=== PATIENT | male | born 1945 | race Hispanic/Latino ===

== ENCOUNTER 2020-05-30 21:25 | Emergency (ER) | payer OTHER ==
--- OUTSIDE RECORDS SUMMARY | 2020-05-30 21:27 | XMS REPORT | Continuity of Care Document ---
:1945 Author Organization [facility] t Address [address] [place] [address] Care Team Providers Name Role Phone Cra Pettit DO Attending Clinician Jerman GRIER, Vanessa Attending Clinician Unavailable Edi Christie MD Attending Clinician Only, Test Attending Clinician Unavailable Blayne Aguilera PA-C Attending Clinician Problems This patient has no known problems. Allergies, Adverse Reactions, Alerts This patient has no known allergies or adverse reactions. Medications This patient has no known medications. Procedures This patient has no known procedures. Encounters Start End Encounter Admission Attending Care Care Encounter Source Date/Time Date/Time Type Type Clinicians Facility Department ID 2020-05-30 2020-05-30 Patient DESHAWN Pettit [id number] 00:00:00 00:00:00 Outreach Car DAPHNIE [id number] Jaylan [facility] [id number] NIKOLAY [id number] 2020-05-23 2020-05-23 Letter PERLITA Stoll [id number] 00:00:00 00:00:00 (Out) Michelle LEON [id number] [facility] [id number] 2020-05-22 2020-05-22 Telephone DESHAWN Christie [id number] 00:00:00 00:00:00 Loren Daley PRIMARY [id number] [facility] [id number] [facility] [id number] 2020-05-21 2020-05-21 Laboratory Only, Pcp [facility] [id number] 07:42:35 07:57:35 Only Test PRIMARY [id number] [facility] [id number] SANIBEL [id number] 2020-05-14 2020-05-14 Office JEROME Aguilera [id number] 13:15:45 14:06:06 Visit Jojo Flakita [id number] [facility] [id number] [facility] [id number] BLDG. 144 Results This patient has no known results.
--- OUTSIDE RECORDS SUMMARY | 2020-05-30 21:28 | XMS REPORT | Summary of Care ---
:1945 Author Organization [facility] - Health Address [address] [place] [address] Care Team Providers Name Role Phone Loren Christie MD Primary Care Provider Estephania Dsouza DO Unavailable LEONARDO James Unavailable Pcp-Lab Unavailable Unavailable DEISY Winn Unavailable Encounter Details Date Type Department Care Team Description 03/19/2020 Patient Secure [facility] Geriatrics- Loren Lee MD [address] [id number] [place] [address] [address] [place] [address] [phone] Allergies No Known Allergiesdocumented as of this encounter (statuses as of 03/19/2020) Medications Medication Sig Dispensed Refills Start Date End Date Status amLODIPine 10 mg Take 1 tablet by 0 12/02/2019 Active tablet mouth daily. atorvastatin 20 mg Take 1 tablet by 0 01/13/2020 Active tablet mouth daily. carvediloL 12.5 mg Take 1 tablet by 0 11/25/2019 Active tablet mouth 2 (two) times daily. clopidogreL 75 mg Take 1 tablet by 0 12/16/2019 Active tablet mouth daily. furosemide 80 mg Take 1 tablet by 0 12/02/2019 Active tablet mouth daily. sevelamer 800 mg 2 tablets 3 0 02/07/2020 Active tablet (three) times daily with meals. clotrimazole 1 % Apply to area(s) 1 Tube 3 02/27/2020 Active topical 2 (two) times creamIndications: daily. Fungal dermatosis cloNIDine 0.1 mg Take 1 tablet by 120 tablet 3 02/27/2020 Active tabletIndications: mouth 2 (two) Essential times daily. 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 05/02/2019 Malfunction of arteriovenous dialysis fistula, initial encounter 03/31/2019 Overview: Added automatically from request for israel iglesiasy [id number] Bilateral carotid artery stenosis 07/27/2018 Overview: Added automatically from request for israel iglesiasy [id number] TIA (transient ischemic attack) 05/29/2018 Dialysis patient 04/18/2018 ESRD (end stage renal disease) 01/03/2018 Overview: Added automatically from request for israel iglesiasy [id number] Diabetic polyneuropathy associated with type 2 diabete s mellitus 06/13/2015 Cancer of prostate with intermediate recurrence risk ( stage T2b-c or 11/13/2014 [place] 7 or PSA 10-20) Undiagnosed cardiac murmurs 01/05/2013 Diabetes mellitus due to underlying condition, control led, with chronic 02/26/2011 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 Essential hypertension, benign 02/26/2011 HLD (hyperlipidemia) 02/26/2011 Overview: ICD10 Diagnosis Term Management Recruiter Utility Backache 08/05/2006 Overview: Lower back pain - totally disabled ICD10 Diagnosis Term Management Recruiter Utility Hearing loss 08/05/2006 Overview: Both ears ICD10 Diagnosis Term Management Recruiter Utility documented as of this encounter (statuses as of 03/19/2020) Resolved Problems Problem Noted Date Resolved Date CKD (chronic kidney disease) stage 4, GFR 15-29 ml/min 06/0304/29/2018 Need for vaccination 03/30/2017 04/29/2018 Uncontrolled type 2 diabetes mellitus with stage 4 chronic 1 04/29/2018 kidney disease, with long-term current use of insulin Type 2 diabetes mellitus with diabetic chronic kidney 201403/17/2016 disease documented as of this encounter (statuses as of 03/19/2020) Immunizations Name Administration Dates Next Due Influenza High Dose 03/02/2019, 02/22/2018, 03/30/2017, 2016, 03/12/2015, 03/15/2014, 03/02/2013, 03/19/2011 Influenza High Dose Quad 02/27/2020 Pneumococcal 13 Conjugate, PCV13 09/28/2016, 2016 (Prevnar 13) Pneumococcal Polysaccharide, PPSV23 03/19/2011 (PNEUMOVAX) Zoster(Zostavax)(Shingles) 09/28/2016 documented as of this encounter Social History Tobacco Use Types Packs/Day Years Used Date Former Smoker 0.2 15 Smokeless Tobacco: Never Used Alcohol Use Drinks/Week oz/Week Comments No quit 20 yrs ago Sex Assigned at Date Recorded Not on file documented as of this encounter Last Filed Vital Signs Not on filedocumented in this encounter Plan of Treatment Date Type Specialty Care Team Description 03/26/2020 Office Visit Orthopedic Surgery Ebenezer Kruger DPM [address] [place], [place] [address] 04/16/2020 Office Visit Ophthalmology Rosalva Marr MD [facility] [address] [id number] 05/28/2020 Office Visit Geriatric Medicine Loren Christie MD [address] [place] [address] [place] [address] Health Maintenance Due Date Last Done Comments DTaP,Tdap,and Td Vaccines (1 - 1962 Tdap) LUNG CANCER SCREEN: Recommended 1998 for age 55-80 with 30 + pack year history Medicare Wellness Visit 2008 Zoster Recombinant Vaccine 11/23/2016 09/28/2016 (SHINGRIX) (2 of 3) FOOT EXAM 05/19/2019 05/19/2018, 05/19/2018, 04/28/2018, Additional history exists LDL-C 05/29/2019 05/29/2018, 04/19/2018, 11/19/2015, Additional history exists EYE EXAM 10/14/2019 10/13/2018, 10/07/2017, 10/07/2017, Additional history exists HgA1C 05/30/2020 11/28/2019, 05/29/2018, 05/19/2018, Additional history exists CREATININE (SERUM) 10/11/2020 10/12/2019, 10/04/2018, 09/30/2018, Additional history exists Depression Screening 12/11/2020 12/12/2019 PNEUMOCOCCAL VACCINES 65+ Completed 09/28/2016, 2016 , 03/19/2011 INFLUENZA VACCINE Completed 02/27/2020, 03/02/2019, 02/22/2018, Additional history exists documented as of this encounter Implants Implanted Type Area Milieu Counselor Device Shelf Model / Identifier Expiration Serial / Date Lot Kiki Royal035 4mm X 40mm X 75cm 5fr Bard#[id number] - Sn/A Balloo n Left: Arm Bard 07/30/2020 [id number] / Implanted: Qty: 1 on 03/15/2018 by Compa Catherine MD at [facility] N/A / [id number] Angio-Seal Evolution Vascular Closure Device St Iglesia M edical #[id number] - S0 OCCLUSION Right: Terumo 09/20/2018 [id number] / Implanted: Qty: 1 on 08/09/2018 by Phi Perdue Jr., MD at [facility] DEVICE Groin 0 / [id number] Stent, [place] [id number] Viabahn Vasc 120cm Cath #[id number] - S [id number] STENT Left: Arm W L [place] 02/01/2021 [id number] / Implanted: Qty: 1 on 06/28/2018 by Compa Catherine MD at [facility] [id number] / NA documented as of this encounter Results Not on filedocumented in this encounter Insurance Payer Benefit Plan / Subscriber ID Effective Dates Phone Addre ss Type Group MEDICARE MEDICARE PART [id number] 2003-Presishmael [phone] [address] Medicare A & B 2 [id number] [place] [id number] 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
--- OUTSIDE RECORDS SUMMARY | 2020-05-30 21:28 | XMS REPORT | Summary of Care ---
:1945 Author Organization [facility] - Health Address [address] [place] [address] Care Team Providers Name Role Phone Loren Christie MD Primary Care Provider Estephania Dsouza DO Unavailable LEONARDO James Unavailable Pcp-Lab Unavailable Unavailable DEISY Winn Unavailable Encounter Details Date Type Department Care Team Description 03/01/2020 Orders Only [facility] Doctor Unassigned, No [address] [facility] [place] [address] [place] [address] Allergies No Known Allergiesdocumented as of this [...] Overview: Added automatically from request for israel shelton [id number] Bilateral carotid artery stenosis 07/27/2018 Overview: Added automatically from request for israel shelton [id number] TIA (transient ischemic attack) 05/29/2018 Dialysis patient 04/18/2018 ESRD (end stage renal disease) 01/03/2018 Overview: Added automatically from request for israel shelton [id number] Diabetic polyneuropathy associated with type 2 diabete s mellitus 06/13/2015 Cancer of prostate with intermediate recurrence risk ( stage T2b-c or 11/13/2014 [place] 7 or PSA 10-20) Undiagnosed cardiac murmurs 01/05/2013 Diabetes mellitus due to underlying condition, control led, with chronic 02/26/2011 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 Essential hypertension, benign 02/26/2011 HLD (hyperlipidemia) 02/26/2011 Overview: ICD10 Diagnosis Term Radiologist Physician Utility Backache 08/05/2006 Overview: Lower back pain - totally disabled ICD10 Diagnosis Term Radiologist Physician Utility Hearing loss 08/05/2006 Overview: Both ears ICD10 Diagnosis Term Radiologist Physician Utility documented as of this encounter (statuses [...] Visit Orthopedic Surgery Ebenezer Kruger DPM [address] [place], [place] [address] 04/16/2020 Office Visit Ophthalmology Rosalva Marr MD [address] [place] [address]653 05/28/2020 Office Visit Geriatric Medicine Loren Christie MD [address] [place] [address] [address] [place], [place] [address] Health Maintenance Due Date Last [...] of this encounter Implants Implanted Type Area Legal Clerk Device Shelf Model / Identifier Expiration Serial / Date Lot Kiki Royal035 4mm X 40mm X 75cm 5fr Bard#[id number] - Sn/A Balloo n Left: Arm Bard 07/30/2020 [id number] / Implanted: Qty: 1 on 03/15/2018 by Compa Catherine MD at [facility] N/A / [id number] Angio-Seal Evolution Vascular Closure Device [employer] Iglesia M edical #[id number] - S0 OCCLUSION Right: Terumo 09/20/2018 [id number] / Implanted: Qty: 1 on 08/09/2018 by Phi Perdue Jr., MD at [facility] DEVICE Groin 0 / [id number] Stent, [place] [id number] Viabahn Vasc 120cm Cath #[id number] - S [id number] STENT Left: Arm W L [place] 02/01/2021 [id number] / Implanted: Qty: 1 on 06/28/2018 by Compa Catherine MD at [facility] [id number] / NA documented as of this encounter Procedures Procedure Name Priority Date/Time Associated Diagnosis Comme nts DME/SUPPLY JUSTIFICATION Routine 03/01/2020 12:01 AM CDT documented in this encounter Results Not on filedocumented in this encounter Insurance Payer Benefit Plan / Subscriber ID Effective Dates Phone Addre ss Type Group MEDICARE MEDICARE PART [id number] 2003-Presishmael [phone] 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
--- OUTSIDE RECORDS SUMMARY | 2020-05-30 21:29 | XMS REPORT | Summary of Care ---
:1945 Author Organization [facility] - Health Address [address] [place] [address] Care Team Providers Name Role Phone Pcp, Patient Does Not Have A Primary Care Provider +[phone] [phone] Edi Christie MD Unavailable Estephania Dsouza DO Unavailable LEONARDO James Unavailable Pcp-Lab Unavailable Unavailable DEISY Winn Unavailable Encounter Details Date Type Department Care Team Description 03/19/2020 Patient Secure [facility] Geriatrics- Loren Lee MD [address] Primary Care [place] [id number] [address] [place] [address] [address] [place] [address] [phone] Allergies No Known Allergiesdocumented as of this encounter (statuses as of 03/22/2020) Medications Medication Sig Dispensed Refills Start Date End Date Status amLODIPine 10 mg Take 1 tablet by 0 12/02/2019 Suspended tablet mouth daily. atorvastatin 20 mg Take 1 tablet by 0 01/13/2020 Suspended tablet mouth daily. carvediloL 12.5 mg Take 1 tablet by 0 11/25/2019 Suspended tablet mouth 2 (two) times daily. clopidogreL 75 mg Take 1 tablet by 0 12/16/2019 Suspended tablet mouth daily. furosemide 80 mg Take 1 tablet by 0 12/02/2019 Suspended tablet mouth daily. sevelamer 800 mg 2 tablets 3 0 02/07/2020 Suspended tablet (three) times daily with meals. clotrimazole 1 % Apply to 1 Tube 3 02/27/2020 Fernandez spended topical area(s) 2 (two) creamIndications: times daily. Fungal dermatosis Additional Information cloNIDine 0.1 mg Take 1 tablet by 120 tablet 3 02/27/2020 Suspended tabletIndications: Essential mouth 2 (two) hypertension, benign times daily. 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 05/02/2019 Malfunction of arteriovenous dialysis fistula, initial encounter 03/31/2019 Overview: Added automatically from request for israel shelton [id number] Bilateral carotid artery stenosis 07/27/2018 Overview: Added automatically from request for israel shelton [id number] TIA (transient ischemic attack) 05/29/2018 Dialysis patient 04/18/2018 ESRD (end stage renal disease) 01/03/2018 Overview: Added automatically from request for israel shelton [id number] Diabetic polyneuropathy associated with type 2 diabete s mellitus 06/13/2015 Cancer of prostate with intermediate recurrence risk ( stage T2b-c or 11/13/2014 [place] 7 or PSA 10-20) Undiagnosed cardiac murmurs 01/05/2013 Diabetes mellitus due to underlying condition, control led, with chronic 02/26/2011 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 Diver Utility Backache 08/05/2006 Overview: Lower back pain - totally disabled ICD10 Diagnosis Term Offshore Diver Utility Hearing loss 08/05/2006 Overview: Both ears ICD10 Diagnosis Term Offshore Diver Utility documented as of this encounter (statuses as of 03/22/2020) Resolved Problems Problem Noted Date Resolved Date CKD (chronic kidney disease) stage 4, GFR 15-29 ml/min 06/0304/29/2018 Need for vaccination 03/30/2017 04/29/2018 Uncontrolled type 2 diabetes mellitus with stage 4 chronic 1 04/29/2018 kidney disease, with long-term current use of insulin Type 2 diabetes mellitus with diabetic chronic kidney 201403/17/2016 disease documented as of this encounter (statuses as of 03/22/2020) Immunizations Name Administration Dates Next Due Influenza [...] Assigned at Date Recorded Not on file COVID-19 Exposure Response Date Recorded In the last month, have you been in contact with No / Unsure 2020 8:34 AM CDT someone who was confirmed or suspected to have 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 documented as of this encounter Last Filed Vital Signs Not on filedocumented in this encounter Miscellaneous Notes Telephone Encounter - Loren Christie MD - 03/21/2020 5:43 PM CDTThanks I did reviwed chart Hope all goes very well with heart CABG documented in this encounter Plan of Treatment Date Type Specialty Care Team Description 03/25/2020 Anesthesia Event Surgery Esmer Low MD [address] [place] [address]. [place] [address] 03/25/2020 Surgery Surgery Cornel Whitehead MD CORONARY ARTERY [address] [place] [address] [place] [address] 04/16/2020 Office Visit Ophthalmology Rosalva Marr MD [address] [id number] 05/28/2020 Office Visit Geriatric Medicine Loren Christie MD [address] [facility] [id number] [place], [place] [address] Health Maintenance Due Date Last Done Comments DTaP,Tdap,and Td Vaccines (1 - 1962 Tdap) Medicare Wellness Visit 2008 Zoster Recombinant Vaccine 11/23/2016 09/28/2016 (SHINGRIX) (2 of 3) FOOT EXAM 05/19/2019 05/19/2018, 05/19/2018, 04/28/2018, Additional history exists EYE EXAM 10/14/2019 10/13/2018, 10/07/2017, 10/07/2017, Additional history exists HgA1C 09/15/2020 2020, 11/28/2019, 05/29/2018, Additional history exists Depression Screening 12/11/2020 12/12/2019 LDL-C 2021 2020, 05/29/2018, 04/19/2018, Additional history exists CREATININE (SERUM) 03/21/2021 03/21/2020, 03/20/2020, 03/19/2020, Additional history exists PNEUMOCOCCAL VACCINES 65+ Completed 09/28/2016, 2016 , 03/19/2011 INFLUENZA VACCINE Completed 02/27/2020, 03/02/2019, 02/22/2018, Additional history exists documented as of this encounter Implants Implanted Type Area Unit Manager Convenience Stores Device Shelf Model / Identifier Expiration Serial / Date Lot Lutonix .035 4mm X 40mm X 75cm 5fr Bard#[id number] - Sn/A Papi n Left: Arm Bard 07/30/2020 [id number] / Implanted: Qty: 1 on 03/15/2018 by Compa Catherine MD at [facility] N/A / [id number] Angio-Seal Evolution Vascular Closure Device St Iglesia M edical #[id number] - S0 OCCLUSION Right: Terumo 09/20/2018 [id number] / Implanted: Qty: 1 on 08/09/2018 by Phi Perdue Jr., MD at [facility] DEVICE Groin 0 / [id number] Stent, [place] [id number] Viabahn Vasc 120cm Cath #[id number] - S [id number] STENT Left: Arm W L [place] 02/01/2021 [id number] / Implanted: Qty: 1 on 06/28/2018 by Compa Catherine MD at [facility] [id number] / NA documented as of this encounter Results Not on filedocumented in this encounter Insurance Payer Benefit Plan Subscriber ID Effective Phone Address Typ e / Group Dates MEDICARE MEDICARE PART [id number] 2003-Pres [phone] [address] Medicare A & B ent [id number] [place] [address] [facility] MEDICAID OF [id number] 2016-Prese [phone] [address] Med icaid [place] nt [phone] [id number] [place] [address] MEDICARE MEDICARE PART [id number] 2003-Pres [phone] 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
--- OUTSIDE RECORDS SUMMARY | 2020-05-30 21:33 | XMS REPORT | Summary of Care ---
:1945 Author Organization [facility] - [facility] Address [address] [place] [address] Care Team Providers Name Role Phone Pcp, Patient Does Not Have A Primary Care Provider [id number] Edi Christie MD Unavailable Estephania Dsouza DO Unavailable LEONARDO James Unavailable Pcp-Lab Unavailable Unavailable DEISY Winn Unavailable Reason for Visit Reason Comments Transition Of Care Encounter Details Date Type Department Care Team Description 04/01/2020 Transition of Care [facility] [address] [address] Allergies No Known Allergiesdocumented as of this encounter (statuses as of 04/01/2020) Medications Medication Sig Dispensed Refills Start Date End Date Status clopidogreL 75 mg Take 1 tablet by 0 12/16/2019 Active tablet mouth daily. sevelamer 800 mg 2 tablets 3 0 02/07/2020 Active tablet (three) times daily with meals. clotrimazole 1 % Apply to area(s) 1 Tube 3 02/27/2020 Active topical 2 (two) times creamIndications: daily. Fungal dermatosis atorvastatin 20 mg Take 4 tablets by 0 03/29/2020 Active tabletIndications: mouth at bedtime. S/P CABG x 2 acetaminophen-codeine Take 1 tablet by 0 03/29/2020 04/05/2020 Active 300-30 mg mouth every 6 tabletIndications: (six) hours as acute pain needed for Pain (scale 4-6) for up to 7 days. Indications: acute pain aspirin 81 mg Take 1 tablet by 0 03/30/2020 Active chewable mouth daily. tabletIndications: S/P CABG x 2 docusate 100 mg Take 1 capsule by 0 03/29/2020 Active capsuleIndications: mouth 2 (two) S/P CABG x 2 times daily. metoprolol tartrate Take 1 tablet by 0 03/29/2020 Active 25 mg mouth 2 (two) tabletIndications: times daily. S/P CABG x 2 midodrine 5 mg Take 1 tablet by 0 04/01/2020 Active tabletIndications: mouth every S/P CABG x 2 Wednesday, Wednesday and Wednesday. sennosides 8.6 mg Take 1 tablet by 0 03/29/2020 Active tabletIndications: mouth 2 (two) S/P CABG x 2 times daily. simethicone 80 mg Take 1 tablet by 0 03/29/2020 Active chewable mouth after meals tabletIndications: and at bedtime. 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 05/02/2019 Malfunction of arteriovenous dialysis fistula, initial encounter 03/31/2019 Overview: Added automatically from [employer] [place] [id number] Bilateral carotid artery stenosis 07/27/2018 Overview: Added automatically from [employer] [id number] TIA (transient ischemic attack) 05/29/2018 Dialysis patient 04/18/2018 ESRD (end stage renal disease) 01/03/2018 Overview: Added automatically from [employer] [id number] Diabetic polyneuropathy associated with type 2 diabete s mellitus 06/13/2015 Cancer of prostate with intermediate recurrence risk ( stage T2b-c or 11/13/2014 Macrina 7 or PSA 10-20) Undiagnosed cardiac murmurs 01/05/2013 Diabetes mellitus due to underlying condition, control led, with chronic 02/26/2011 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 Essential hypertension, benign 02/26/2011 HLD (hyperlipidemia) 02/26/2011 Overview: ICD10 Diagnosis Term [employer] Utility Backache 08/05/2006 Overview: Lower back pain - totally disabled ICD10 Diagnosis Term [employer] Utility Hearing loss 08/05/2006 Overview: Both ears ICD10 Diagnosis Term [employer] Utility documented as of this encounter (statuses as of 04/01/2020) Resolved Problems Problem Noted Date Resolved Date CKD (chronic kidney disease) stage 4, GFR 15-29 ml/min 06/0304/29/2018 Need for vaccination 03/30/2017 04/29/2018 Uncontrolled type 2 diabetes mellitus with stage 4 chronic 1 04/29/2018 kidney disease, with long-term current use of insulin Type 2 diabetes mellitus with diabetic chronic kidney 201403/17/2016 disease documented as of this encounter (statuses as of 04/01/2020) Immunizations Name Administration Dates Next Due Influenza High Dose 03/02/2019, 02/22/2018, 03/30/2017, 2016, 03/12/2015, 03/15/2014, 03/02/2013, 03/19/2011 Influenza High Dose Quad 02/27/2020 Pneumococcal 13 Conjugate, PCV13 09/28/2016, 2016 (Prevnar 13) Pneumococcal Polysaccharide, PPSV23 03/19/2011 (PNEUMOVAX) Zoster(Zostavax)(Shingles) 09/28/2016 documented as of this encounter Social History Tobacco Use Types Packs/Day Years Used Date Former Smoker Cigarettes 1 15 Quit: 1989 Smokeless Tobacco: Never Used Alcohol Use Drinks/Week oz/Week Comments Not Currently quit 20 yrs ago Sex Assigned at [...] this encounter Miscellaneous Notes Telephone Encounter - Ravinder Kwok RN - 04/01/2020 1:56 PM CST TRANSITIONAL CARE MANAGEMENT ASSESSMENT 04/01/2020 Jose Combs [id number] Jose Combs is a 75 year old /White male was admitted on 03/17/[address] He was discharged on 03/29/20 with discharge disposition of HR- Routine Discharge. Admitting Physician: Cristhian Ulloa Discharge Diagnosis: FINAL DIAGNOSIS: Coronary artery disease Linked Episodes Type: Episode: Status: Noted: Resolved: Last update: Updated by: TRANSITION OF CARE TCM Active 03/29/2020 04/01/2020 1:56 PM Ravinder Kwok RN Comments: TCM Imt-wbru-by-face outreach documentation: Discharge Assessment Chart Assessed: 04/01/20 Chart Reviewed - Post Discharge Call Deferred due to Change in Discharge Status.: [facility], [address] [place] [address] P) [phone] (f) [phone])) TCM Outreach Completed: 04/01/20 Future Appointments: Future Appointments Provider Department Dept Phone 04/11/2020 1:45 PM Cornel Whitehead MD [facility] [phone] 04/16/2020 9:30 AM Rosalva Marr MD [facility] [phone] 05/28/2020 8:30 AM Loren Christie MD [facility] [phone] NCE CLERK documented in this encounter Plan of Treatment Date Type Specialty Care Team Description 04/11/2020 Office Visit Thoracic Surgery Cornel Whitehead MD [address] [place] [address] [phone] 04/16/2020 Office Visit Ophthalmology Rosalva Marr MD [address] [facility] [address] [place] [address] [phone] 05/28/2020 Office Visit Geriatric Medicine Loren Christie MD [address] [facility] [address] [place], [place] [address] [phone] Health Maintenance Due Date Last Done Comments [...] 05/29/2018, 04/19/2018, Additional history exists CREATININE (SERUM) 03/28/2021 03/28/2020, 03/27/2020, 03/27/2020, Additional history exists PNEUMOCOCCAL VACCINES 65+ Completed 09/28/2016, 2016 , 03/19/2011 INFLUENZA VACCINE Completed 02/27/2020, 03/02/2019, 02/22/2018, Additional history exists documented as of this encounter Implants Implanted Type Area Report Programmer Device Shelf Model / Identifier Expiration Serial / Date Lot Lutonix .035 4mm X 40mm X 75cm 5fr [id number] - Sn/A Balloo n Left: Arm Bard 07/30/2020 [id number] / Implanted: Qty: 1 on 03/15/2018 by Compa Catherine MD at [facility] N/A / [id number] Angio-Seal Evolution Vascular Closure Device [place] M edical #[id number] - S0 OCCLUSION Right: Terumo 09/20/2018 [id number] / Implanted: Qty: 1 on 08/09/2018 by Phi Perdue Jr., MD at [facility] DEVICE Groin 0 / [id number] Stent, [place] [id number] Viabahn Vasc 120cm Cath #[id number] - S [id number] STENT Left: Arm W L [place] 02/01/2021 [id number] / Implanted: Qty: 1 on 06/28/2018 by Compa Catherine MD at [facility] [id number] / NA documented as of this encounter Results Not on filedocumented in this encounter Insurance Payer Benefit Plan Subscriber ID Effective Phone Address Typ e / Group Dates MEDICARE MEDICARE PART [id number] 2003-Pres [phone] Medicare A & B ent [id number] [place] [phone] [facility] MEDICAID OF [id number] 2016-Prese [phone] Med icaid [place] nt [phone] [id number] [place] [address] MEDICARE MEDICARE PART [id number] 2003-Pres 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
--- OUTSIDE RECORDS SUMMARY | 2020-05-30 21:33 | XMS REPORT | Summary of Care ---
:1945 Author Organization [facility] Address [address] [place] [address] Care Team Providers Name Role Phone Pcp, Patient Does Not Have A Primary Care Provider +[id number] Edi Christie MD Unavailable Estephania Dsouza DO Unavailable LEONARDO James Unavailable Pcp-Lab Unavailable Unavailable DEISY Winn Unavailable Reason for Referral (Routine) Status Reason Specialty Diagnoses / Referred By Referred To Procedures Contact Contact New Request IM-CARDIOVASCULAR Diagnoses S/P CABG x 2 Leidy Cherry DISEASE Procedures Discharge Follow-Up: Specialty Service IM-CARDIOVASCULAR DISEASE; 4-6 Weeks L, 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 [address] [place] [address] Radiology Services (STAT) Status Reason Specialty Diagnoses / Referred By Referred To Procedures Contact Contact New Request Diagnostic Diagnoses S/P CABG (coronary artery bypass graft) Cornel Whitehead MD Radiology Procedures XR CHEST 2 VW [address] [place] [address] Radiology Services (Emergency) Status Reason Specialty Diagnoses / Referred By Referred To Procedures Contact Contact New Request Diagnostic Diagnoses S/P CABG (coronary artery bypass graft) Cornel Whitehead MD Radiology Procedures Abdomen XRay 1 View [address] [place] [address] Radiology Services (ABDIAS) Status Reason Specialty Diagnoses / Referred By Referred To Procedures Contact Contact New Request Diagnostic Diagnoses S/P CABG (coronary artery bypass graft) Cornel Whitehead MD Radiology Procedures Chest 1 View [address] [place] [address] Radiology Services (STAT) Status Reason Specialty Diagnoses / Referred By Referred To Procedures Contact Contact New Request Diagnostic Diagnoses S/P CABG (coronary artery bypass graft) Cornel Whitehead MD Radiology Procedures Chest 1 View (on admission) [address] [place] [address] (Routine) Status Reason Specialty Diagnoses / Referred By Referred To Procedures Contact Contact New Request Procedures Liam, afa CAROTID DUPLEX Joseph Morrow BILATERAL BY MD Ron [facility] [address] [place] [address] Radiology Services (Routine) Status Reason Specialty Diagnoses / Referred By Referred To Procedures Contact Contact New Request Diagnostic Diagnoses Shortness of breath Liam, Radiology Procedures XR CHEST 2 [place] [address] [place] [address] (Routine) Status Reason Specialty Diagnoses / Procedures Referred By C ontact Referred To Contact Closed Cardiology Procedures Cristhian Ulloa Cardiac Cath Request MD Epi for Service [address] [place] [address] (Cardiology Use Only) [place] [address] Phone: (Routine) Status Reason Specialty Diagnoses / Referred By Referred To Procedures Contact Contact New Request Cardiology Procedures Cristhian Ulloa Cardiac Cath Request MD Epi for Service [address] [place] [address] (Cardiology Use [place], [place] Only) [address] (Routine) Status Reason Specialty Diagnoses / Referred By Referred To Procedures Contact Contact New Request Procedures Phi Perdue Jr., MD SCAN UPPER EXTREMITY [address] [facility] ARTERIAL BY V[facility] [id number] [place] [address] (STAT) Status Reason Specialty Diagnoses / Referred By Referred To Procedures Contact Contact New Request Cardiology Diagnoses Acute on chronic heart failure, unspecified heart failure type Cristhian Ulloa Procedures ECHO ROUTINE W/DOPPLER COLOR MD Epi [address] [place] [address] [place] [address] Radiology Services (STAT) Status Reason Specialty Diagnoses / Referred By Referred To Procedures Contact Contact New Request Diagnostic Diagnoses Shortness of breath Susanne George, Radiology Procedures Chest 1 View DO [address] [facility] [id number] [place] [address] Reason for Visit Reason Comments Shortness of Breath Auth/Cert Status Reason Specialty Diagnoses / Referred By Referred To Procedures Contact Contact Pulmonary Disease Diagnoses Dyspnea Desiree [address] [place] [phone] Fax: Encounter Details Date Type Department Care Team Description 2020 - Hospital Encounter CT/ Vascular (DESIREE George ErnieRenettaFlako cam, DO [address] [facility] [id number] [place], [place] [phone] Dyspnea 03/29/2020 9A) Cristhian Ulloa MD [address] [place] [address] [place] [phone] 7[address] [facility] Dejan Landaverde MBBS [address] [facility] [id number] [place], [place] [address] [place] [id number] Cornel Whitehead MD [address] [place] [address] [phone] Allergies No Known Allergiesdocumented as of this encounter (statuses as of 03/29/2020) Medications Medication Sig Dispensed Refills Start Date End Date Status clopidogreL 75 mg Take 1 tablet 0 12/16/2019 Active tablet by mouth daily. sevelamer 800 mg 2 tablets 3 0 02/07/2020 Active tablet (three) times daily with meals. clotrimazole 1 % Apply to 1 Tube 3 02/27/2020 Ac tive topical area(s) 2 creamIndications: (two) times Fungal dermatosis daily. atorvastatin 20 Take 4 tablets 0 03/29/2020 Active mg by mouth at tabletIndications bedtime. : S/P CABG x 2 acetaminophen-cod Take 1 tablet 0 03/29/2020 02 Active eine 300-30 mg by mouth every 0 tabletIndications 6 (six) hours : acute pain as needed for Pain (scale 4-6) for up to 7 days. Indications: acute pain aspirin 81 mg Take 1 tablet 0 03/30/2020 A ctive chewable by mouth tabletIndications daily. : S/P CABG x 2 docusate 100 mg Take 1 capsule 0 03/29/2020 Active capsuleIndication by mouth 2 s: S/P CABG x 2 (two) times daily. metoprolol Take 1 tablet 0 03/29/2020 Acti ve tartrate 25 mg by mouth 2 tabletIndications (two) times : S/P CABG x 2 daily. midodrine 5 mg Take 1 tablet 0 04/01/2020 Active tabletIndications by mouth every : S/P CABG x 2 Wednesday, Wednesday and Wednesday. sennosides 8.6 mg Take 1 tablet 0 03/29/2020 Active tabletIndications by mouth 2 : S/P CABG x 2 (two) times daily. simethicone 80 mg Take 1 tablet 0 03/29/2020 Active chewable by mouth after tabletIndications meals and at : S/P CABG x 2 bedtime. amLODIPine 10 mg Take 1 tablet 0 12/02/2019 03/29/20 2 Discontinued tablet by mouth 0 daily. atorvastatin 20 Take 1 tablet 0 01/13/2020 Discontinued mg tablet by mouth 0 (Reorder) daily. carvediloL 12.5 Take 1 tablet 0 11/25/2019 Discontinued mg tablet by mouth 2 0 (two) times daily. furosemide 80 mg Take 1 tablet 0 12/02/2019 03/29/20 2 Discontinued tablet by mouth 0 daily. cloNIDine 0.1 mg Take 1 tablet 120 tablet 3 02/27/2020 02 Discontinued tabletIndications by mouth 2 0 : Essential (two) times hypertension, daily. 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 05/02/2019 Malfunction of arteriovenous dialysis fistula, initial encounter 03/31/2019 Overview: Added automatically from request for israel shelton [id number] Bilateral carotid artery stenosis 07/27/2018 Overview: Added automatically from request for israel shelton [id number] TIA (transient ischemic attack) 05/29/2018 Dialysis patient 04/18/2018 ESRD (end stage renal disease) 01/03/2018 Overview: Added automatically from request for israel shelton [id number] Diabetic polyneuropathy associated with type 2 diabete [...] HLD (hyperlipidemia) 02/26/2011 Overview: ICD10 Diagnosis Term 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 Backache 08/05/2006 Overview: Lower back pain - totally disabled ICD10 Diagnosis Term 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 Hearing loss 08/05/2006 Overview: Both ears ICD10 Diagnosis Term 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 documented as of this encounter (statuses as of 03/29/2020) Resolved Problems Problem Noted Date Resolved Date CKD (chronic kidney disease) stage 4, GFR 15-29 ml/min 06/0304/29/2018 Need for vaccination 03/30/2017 04/29/2018 Uncontrolled type 2 diabetes mellitus with stage 4 chronic 1 04/29/2018 kidney disease, with long-term current use of insulin Type 2 diabetes mellitus with diabetic chronic kidney 201403/17/2016 disease documented as of this encounter (statuses as of 03/29/2020) Immunizations Name Administration Dates Next Due Influenza [...] of this encounter Last Filed Vital Signs Vital Sign Reading Time Taken Comments Blood Pressure 149/75 03/29/2020 7:06 PM DEPUTY CHIEF SHERIFF Pulse 102 03/29/2020 7:06 PM DEPUTY CHIEF SHERIFF Temperature 37 C (98.6 F) 03/29/2020 7:06 PM DEPUTY CHIEF SHERIFF Respiratory Rate 18 03/29/2020 7:06 PM DEPUTY CHIEF SHERIFF Oxygen Saturation 98% 03/29/2020 11:57 AM DEPUTY CHIEF SHERIFF Inhaled Oxygen Concentration - - Weight 67 kg (147 lb 11.3 oz) 03/29/2020 7:06 PM DEPUTY CHIEF SHERIFF Height 167.6 cm (5' 6") 03/19/2020 11:38 PM CDT Body Mass Index 23.84 03/19/2020 11:38 PM CDT documented in this encounter Progress Notes Tono Montilla, PT - 03/29/2020 3:19 PM CSTPhysical Therapy Note: Patient going for dialysis and hopefully going to a rehab facility today. Follow up on the next treatment session, if still in the hospital. Many Thanks Tono Montilla, PT, DPT Pager: [phone] avida Cordoba RN - 03/29/2020 2:41 PM CSTCare Coordinator Note: [facility], [address] [place] [address] (P) [phone] (F) [phone]) is where Marylin Damico (p)[phone] with [facility] patient will be admitted to this evening. Transportation with [facility] is set up from [phone] with voucher#[id number]. Thank You, Davida Cordoba RN (Tish), BSN Brain Surgeon, Care Management Dept. O: [phone] C: [phone] (Not for patients use.) E: [email or web address] TY CHIEF SHERIFF Davida Cordoba RN - 03/29/2020 12:26 PM CSTCare Coordinator Note: CC choice and sent clinicals to [place] [address] (P) [phone] (F) [phone] Thank You, Davida Cordoba RN (Tish), BSN Brain Surgeon, Care Management Dept. O: [phone] C: [phone] (Not for patients use.) E: [email or web address] 1945 RE: Care Management Patient Choice Notification Your doctor has recommended that you have post-hospital care services at discharge. You can choose the provider you want, regardless of its relationship with [facility]. We will contact any of the agencieswithin the [facility] network, or any other agency upon your request. Based on where you live and agency service areas, a list was generated from: Medicare.gov Disclosure: [facility] owns or is affiliated with the following facilities/agencies: [facility] (penitentiary and rehabilitation) If you are being referred to a home health agency or penitentiary facility, you will also be given a [facility] Beneficiary Notification Letter (Dttovsp-ms-Ibja Profile Supplement) informing you about [facility]'s preferred partners. Patient Choice Acknowledgement I, Jose Combs / authorized lead generation representative, am aware that I have choice in selecting post-hospitalcare providers. The hospital has given me a list of providers in the area available to me and/or my authorized lead generation representative. My choice(s) are listed below: ? Rehab: [facility], [address] [place] [address] (P) [phone] (f) [phone]) Your signature on this form indicates that you have been given the following information: ? I have been advised of my right to choose the providers I wish ? If penitentiary facilities, long-term acute care hospitals, personal care homes, or home healthagencies were recommended, I was given a list of facilities/agencies in my geographic area that deliver these services or ? I have pre-selected or am an established client with a facility/agency and choose to initiate/continue services Pt's JOEL Casillas verbalized choice_ 03/29/20 Patient/Guardian/Responsible Libertarian Signature Date Tono Ewing, PT - 03/28/2020 11:12 AM DEPUTY CHIEF SHERIFF Physical Therapy Progress Note: Discharge Recommendations: Therapy Needs and Potential: Patient would benefit from continued physical therapy services to address: decline in bed mobility decline in transfers decline in gait and/or balance decreased strength decreased range of motion decreased endurance decreased coordination decreased motor planning Patient demonstrates good potential to improve and meet therapy goals with further physical therapy services. Patient appears motivated to improve their functional mobility and return to their previous levelof function. Patient demonstrates ability to tolerate atleast 30-60 minutes of physical therapy with active participation. Challenges to Home Transition: increased risk of falls decreased caregiver availability decreased safety awareness environmental barriers Equipment recommendations: rolling walker PAIN: -Pain Description: aching -Pain Location: lower back, upper back and sternum -Pain rating before treatment: 3, After treatment: 3 -Pain Management: Nursing Notified and Repositioning Provided PRECAUTIONS: Weight Bearing Precaution: NA General Precautions: PPE used:Gloves and Surgical mask, General, Fall, IV line and telemetry. Sternal precautions Bracing/Cast present or required:N/A S: Patient agreeable to working with PT. O: Patient met Semi reclined in bed. Patient seen for the following: Bed mobility: Up in the chair upon arrival Transfers: Sit to stand: Minimal assist x 2 using Rolling Walker Stand to sit: Minimal assist x 2 using Rolling Walker Stand pivot transfer: Minimal assist x 2 Static/dynamic standing balance: Fair Verbal cueing provided for correct hand placement and correct use of AD progressed to a multi-point transfers: bed <> recliner Gait: Assisted patient with ambulation as follows: 30 feet using Rolling Walker and Minimal assist, Moderate assist x 2. Patient was tested on room air saturation during activities and remained at SpO2: 92-94%. He is currently at 4LPM/O2. Nurse informed. Patient presenting with Step-to gait pattern. Gait is very slow paced, short steps. Patient complaining of fatigue and gait quality was deteriorating during gait with occasional bilateral LE buckling. Therapeutic exercise: patient educated in Adaptive equipment , Energy conservation, Fall prevention, General strengthening, Gross motor coordination of LEs, Joint protection, Positioning, Relaxation/breathing techniques and Safety awareness., instructed patient in the following: ankle pumps, toe flexion/extension, patien t/caregiver instructed to perform HEP 3 times per day, 10 repetitions., patient/caregiver verbalizesunderstanding of instructions. progressed exercises to functional activities. After session, patient Up in chair, eating lunch and call byrnes provided. Fall precautions were reinforced to patient and family. Nurse Kim was informed of the patient's level of function. A: Patient tolerated session fair. Patient progressing toward goals #1, #2, #3, #4, #5. P: PT will - initiate progressive functional mobilization and gait Total Timed Tx Codes in Minutes: 38 Min Total Treatment Time in Minutes: 38 Min Tono Montilla PT, DPT Pager: [phone] TY CHIEF SHERIFF Emmett Powers MD - 03/28/2020 7:56 AM CST SICU PROGRESS NOTE Date of Service: 03/28/2020 Time: 7:56 AM Hx of HTN, HLD, former smoker, DM2, TIA (2019), ESRD on dialysis MWF, s/p prostatectomy. On 03/17 was admitted for NSTEMI and CHF exacerbation. HPI POD #3 s/p CABG x2 Current ICU Diagnoses: s/p CABG x2 Events/Interventions past 24 hours: - Dialysis yesterday, no fluid pulled off, filtered - chest tubes pulled - PVC's during pm, with atrial fibrillation ~5:30 am this morning, hemodynamically stable, given metoprolol Allergies No Known Allergies Medications: Current Facility-Administered Medications Medication Dose Route Frequency Last Rate Last Admin metoprolol tartrate (LOPRESSOR) tablet 25 mg 25 mg Oral BID 25 mg at 03/28/20 0623 clopidogreL (PLAVIX) tablet 75 mg 75 mg Oral DAILY 75 mg at 03/27/20 1227 midodrine (PROAMATINE) tablet 5 mg 5 mg Oral QMON/WEDS/WED 5 mg at 03/27/20 1505 ondansetron (ZOFRAN (PF)) injection 4 mg 4 mg Slow IV Push Q6HPRN 4 mg at 03/27/20 0838 ipratropium (ATROVENT) 0.02 % nebulizer solution 0.5 mg 0.5 mg Inhalation Q6HPRN Sliding Scale Insulin - Aspart (NOVOLOG) + Fsbg Testing Subcutaneous Q4H Stopped at 03/27/201505 acetaminophen (TYLENOL) suppository 650 mg 650 mg Rectal Q6HPRN acetaminophen (TYLENOL) tablet 650 mg 650 mg Oral Q6HPRN acetaminophen-codeine (TYLENOL #3) 300-30 mg tablet 1 tablet 1 tablet Oral Q6HPRN 1 tablet at105/26/192053 aspirin chewable tablet 81 mg 81 mg Oral DAILY 81 mg at 03/27/20 0821 dextrose 50 % in water (D50W) injection 25 mL 25 mL Slow IV Push PRN dextrose 50 % in water (D50W) injection 25 mL 0.5 Syringe IV Push PRN docusate (COLACE) capsule 100 mg 100 mg Oral DAILY 100 mg at 03/27/20 0821 glucagon (GLUCAGEN DIAGNOSTIC KIT) injection 1 mg 1 mg Intramuscular PRN heparin (porcine) injection 5,000 Units 5,000 Units Subcutaneous Q12H 5,000 Units at 03/27/201959 NaCl 0.9% (NS) bolus infusion 250 mL 250 mL IV Infusion PRN - SEE INSTRUCTIONS naloxone (NARCAN) injection 0.1 mg 0.1 mg Slow IV Push SEE-INSTRUCTIONS sennosides (SENOKOT) tablet 8.6 mg 8.6 mg Oral DAILY 8.6 mg at 03/27/20 0821 atorvastatin (LIPITOR) tablet 80 mg 80 mg Oral QPM 80 mg at 03/27/20 1723 Antibiotic(s): None Infusions: None Drains: none Nutrition: Cardiac diet LABS: Labs: CBC BMP PT/INR WBC x10^3 (/uL) Date Value 01/10/2014 7.2 WBC (10*3/L) Date Value 03/28/2020 8.70 NA Date Value 03/28/2020 134 mmol/L (L) 01/10/2014 140 MMOL/L No results found for: PT RBC x10^6 (/uL) Date Value 01/10/2014 4.78 RBC (10*6/L) Date Value 03/28/2020 2.24 (L) K Date Value 03/28/2020 4.5 mmol/L 01/10/2014 4.1 MMOL/L INR (no units) Date Value 2020 1.0 PLT x10^3 (/uL) Date Value 01/10/2014 220 PLT (10*3/L) Date Value 03/28/2020 122 (L) CALCIUM Date Value 03/28/2020 8.2 mg/dL (L) 01/10/2014 9.6 MG/DL 01/10/2014 9.6 MG/DL HGB Date Value 03/28/2020 6.9 g/dL (L) 01/10/2014 13.7 G/DL CL Date Value 03/28/2020 99 mmol/L 01/10/2014 104 MMOL/L aPTT HCT (%) Date Value 03/28/2020 20.3 (L) 01/10/2014 40.1 BUN Date Value 03/28/2020 39 mg/dL (H) 01/10/2014 28 MG/DL (H) APTT Patient (Seconds) Date Value 03/19/2020 64 (H) CREATININE Date Value 03/28/2020 5.25 mg/dL (H) 01/10/2014 1.73 MG/DL (H) ABG FIO2: PH (no units) Date Value 03/26/2020 7.43 PCO2 (mmHg) Date Value 03/26/2020 30 (L) PO2 (mmHg) Date Value 03/26/2020 122 (H) %O2HB (%) Date Value 03/26/2020 97.8 NA (mmol/L) Date Value 03/26/2020 133 (L) K+ (mmol/L) Date Value 03/26/2020 4.5 AC CA IONZ (mg/dL) Date Value 03/26/2020 4.40 (L) Physical Exam BP (!) 130/96 | Pulse 79 | Temp 37.2 C (99 F) | Resp 23 | Ht 1.676 m (5' 6") | Wt 67.9 kg (149 lb 11.1 oz) | SpO2 95% | BMI 24.16 kg/m General: alert and oriented x 4 (person, place, date/time and situation); no apparent distress Lungs: clear to auscultation bilaterally Cardio: S1, S2 normal; no murmurs, rubs or gallops Abdomen: soft; non-tender; non-distended; normoactive bowel sounds Extremities: no clubbing, cyanosis, or edema Neuro: no focal deficits Pain: pain controlled Sedation: not sedated. Airway: NC at 5 liters/minute Assessment & Plan Jose Combs is a 75 year old /White male S/P CABG x2 POD#3 in good condition. Airway: -Nasal cannula 4 L/min Neurology: -Pain- No pain, T#3 for pain CV S/P CABG POD#3 - Hemodynamically stable - ASAheld last night - Atorvastatin - Clopidogrel - Metoprolol Pulmonary: - On nasal cannula at 5 L/min, wean as tolerated - Encourage incentive spirometry, pulling 250-500 -ipratropiumnebulizer q6hPRN Gastrointestinal - Senokot qd - cardiac diet Renal/Electrolytes: - Monitor and replete as necessary -Dialysis scheduled MWF, received dialysis yesterday will get dialysis again today will goal of pulling fluid off -No urination since fuller removed Endocrinology: - Monitor and adjust SSI as needed Infectious Disease: - Ancef completed yesterday Heme: - Acute Blood Loss anemia - Hgb 6.9 this am, per discussion with surgery faculty will hold transfusion Lines -20 G right arm DVT Prophylaxis:SCD's, heparin DVT ppx Activity: - PT/OT Dispo: Transfer to [facility] today TY CHIEF SHERIFF Associated attestation - Makayla Nelson MD - 03/28/2020 1:27 PM CSTI reviewed the patient's chart and examined the patient with Dr. Powers on 03/28/20 and agree with the resident's assessment and plan. I actively participated in the decision-making process. Pleasesee the resident's note for additional details. Brief A fib noted overnight improved with beta blockade. Encourage IS, OOB, optimize bowel regimen, HD pending for volume removal. Anticipate transfer to floor per primary team. Makayla Nelson MD 03/28/20 1:24 PM Dulce Nguyen MD - 03/28/2020 7:24 AM CST CARDIOTHORACIC SURGERY PROGRESS NOTE Patient: Jose Combs SUBJECTIVE: A fib overnight, given metoprolol. HR in 90s this morning Underwent dialysis yesterday with no fluid removal Pain adequately controlled Chest tubes removed yesterday OBJECTIVE: Vitals: 03/28/20 0400 03/28/20 0500 03/28/20 0600 03/28/20 0700 BP: (!) 123/93 108/72 135/75 120/42 BP Location: Right arm Patient Position: Supine Pulse: 81 96 53 Resp: Temp: 37.2 C (99 F) TempSrc: Tympanic SpO2: 94% 95% 94% 95% Weight: Height: Intake/Output Summary (Last 24 hours) at 03/28/2020 07 Last data filed at 03/27/20201999 Gross per 24 hour Intake 1104.7 ml Output 160 ml Net 944.7 ml Physical Exam: General: Awake and alert, appears comfortable CV: Regular rate currently, irregularly irregular rhythm Pulm: Breathing comfortably, lung sounds congested Incisions: Clean, dry, and intact GI: Soft, nontender, non-distended ASSESSMENT/PLAN: Jose Combs is a 75 year old male who is POD 3 s/p CABG. Doing well postoperatively. - ESRD on HD MWF. Underwent dialysis yesterday but without any fluid removal. Have paged Nephrology to discuss re-dialyzing patient today in order to pull fluid. Goal removal of 2L - POD #3 2v CXR pending - Transfer to floor Dulce Nguyen MD CT Surgery Pager [phone] PGY-4 General Surgery 03/28/2020 TY CHIEF SHERIFF Associated attestation - Cornel Whitehead MD - 03/28/2020 7:42 AM CSTNon sustained AFib overnight. Volume overload. Given BB overnight for rate control. Increased nasal cannula requirements 2V CXR today Re-call renal service for volume removal with HD. Asa/statin/BB Ok to transfer to after HD MD Beverly Corea Samuel, MD - 03/27/2020 8:16 PM CSTSICU Brief Overnight Note 2016: Tolerated hemodialysis this evening. Labs pending. Transfer orders cancelled by primary team due to completion of HD late in the evening. 2254: Pt having more PVCs on monitor. EKG shows PVC every 4th beat. Lytes WNL. Vitals stable. Discussed case with Dr Whitehead who recommends trial of metoprolol 12.5mg. 0527: Pt again having PVCs, and intermittently slipping into brief self- resolving runs of Afib with HR in 110-120s. Likely secondary to volume overload. Discussed with Dr Whitehead. Pts BP is 130/60 and cantolerate starting metoprolol 25 BID. Hgb 6.9, likely dilutional. Will hold off on transfusion for now Hugo Mcclelland MD - 03/27/2020 1:38 PM CST Dialysis Progress Notes Patient seen and examined by nephrology while receiving his dialysis treatment session, concern and question where answered, currently denies any complains, and tolerating treatment well, no headaches,no muscle cramps, his VS are been monitored, and connection sites secured with no leak or bleeds, medications was given prior to the treatment, prn Benadryl can be given for itching with dose of 25 mg slow IV, his UF is well tolerated and K path chosen appropriately according to Sr. K level. BP 105/53 | Pulse 71 | Temp 36 C (96.8 F) | Resp 23 | Ht 1.676 m (5' 6") | Wt 67.9 kg (149 lb 12.8 oz) | SpO2 98% | BMI 24.18 kg/m NA Date Value 03/27/2020 133 mmol/L (L) 01/10/2014 140 MMOL/L K Date Value 03/27/2020 5.5 mmol/L (H) 01/10/2014 4.1 MMOL/L CALCIUM Date Value 03/27/2020 8.1 mg/dL (L) 01/10/2014 9.6 MG/DL 01/10/2014 9.6 MG/DL CL Date Value 03/27/2020 102 mmol/L 01/10/2014 104 MMOL/L BUN Date Value 03/27/2020 52 mg/dL (H) 01/10/2014 28 MG/DL (H) CREATININE Date Value 03/27/2020 6.86 mg/dL (H) 01/10/2014 1.73 MG/DL (H) GLUCOSE Date Value 03/27/2020 131 mg/dL (H) 01/10/2014 186 MG/DL (H) CO2 TOTAL Date Value 03/27/2020 20 mmol/L (L) 01/10/2014 25 MMOL/L ALBUMIN Date Value 2020 4.4 g/dL 11/08/2013 4.2 G/DL T PROTEIN Date Value 2020 7.4 g/dL 11/08/2013 6.8 G/DL TOTAL BILI Date Value 2020 0.9 mg/dL 11/08/2013 0.9 MG/DL BILI UNCON Date Value 2020 0.6 mg/dL 01/20/2012 0.3 MG/DL BILI CONJ Date Value 2020 0.0 mg/dL 01/20/2012 0.0 MG/DL ALT(SGPT) (U/L) Date Value 04/23/2018 60 (H) 11/08/2013 39 ALTv (U/L) Date Value 2020 15 AST(SGOT) (U/L) Date Value 2020 47 (H) 11/08/2013 20 ALK PHOS (U/L) Date Value 2020 62 11/08/2013 76 Assessment and plan Jose Combs 75 year old male with ESRD,pulmonary edema and MVD, s/p repair and CABG POD #2 Plan: - HD today with low K bath and 500 cc UF only as tolerated - Patient c/w treatment until session time completed -Notify primary team for any concern not directly related to HD -Notify Fellow for any related HD concern -Refer to any dialysis treatment details in the nurse today treatment note Patient seen and examined and discussed with faculty attending Ronak Osman MD Nephrology Fellow, PGY 5 Pager [phone] TY CHIEF SHERIFF Associated attestation - Jaya Sweeney MD - 03/28/2020 5:21 PM CSTI have personally discussed, evaluated/examined this patient with the fellow on 03-27-2020 for HD needs . I have reviewed fellows assessment and plan as outlined in the progress note and agree with overall approach to this patient. I personally participated in the decision-making process as relates to this patient's medical condition. Please refer to [place] progress note for details of the medicalcare provided. Jaya Sweeney MD, Rayshawn KEANE Kirk, MD - 03/27/2020 7:43 AM DEPUTY CHIEF SHERIFF SICU PROGRESS NOTE Date of Service: 03/27/2020 Time: 7:44 AM Hx of HTN, HLD, former smoker, DM2, TIA (2019), ESRD on dialysis MWF, s/p prostatectomy. On 03/17 was admitted for NSTEMI and CHF exacerbation. HPI POD # 2 Current ICU Diagnoses: s/p CABG x2 Events/Interventions past 24 hours: - weaned off Norepi then put back on for low MAP (50's) - 250 cc albumin bolus given overnight - Norepi titrated from 0.03 in the pm to 0.01 mcg/kg/min this am and then stopped Allergies No Known Allergies Medications: Current Facility-Administered Medications Medication Dose Route Frequency Last Rate Last Admin D5W 0.9% NaCl (NS) IV infusion 1,000 mL 1,000 mL IV Infusion CONTINUOUS 20 mL/hr at 03/26/20 0954 1,000 mL at 03/26/20 0954 ipratropium (ATROVENT) 0.02 % nebulizer solution 0.5 mg 0.5 mg Inhalation Q6HPRN Sliding Scale Insulin - Aspart (NOVOLOG) + Fsbg Testing Subcutaneous Q4H Stopped at acetaminophen (TYLENOL) suppository 650 mg 650 mg Rectal Q6HPRN acetaminophen (TYLENOL) tablet 650 mg 650 mg Oral Q6HPRN acetaminophen-codeine (TYLENOL #3) 300-30 mg tablet 1 tablet 1 tablet Oral Q6HPRN 1 tablet at105/26/19 2054 aspirin chewable tablet 81 mg 81 mg Oral DAILY 81 mg at 03/26/20 0809 ceFAZolin (ANCEF) 1,000 mg in NaCl 0.9% (NS) 50 mL MINI-BAG 1,000 mg IV Piggyback Q24H 1,000 mg at 03/26/20 1430 dextrose 50 % in water (D50W) injection 25 mL 25 mL Slow IV Push PRN dextrose 50 % in water (D50W) injection 25 mL 0.5 Syringe IV Push PRN docusate (COLACE) capsule 100 mg 100 mg Oral DAILY 100 mg at 03/26/20 0809 furosemide (LASIX) injection 20 mg 20 mg IV Push PRN glucagon (GLUCAGEN DIAGNOSTIC KIT) injection 1 mg 1 mg Intramuscular PRN heparin (porcine) injection 5,000 Units 5,000 Units Subcutaneous Q12H 5,000 Units at insulin regular human (HUMULIN R) 100 Units in D5W 100 mL infusion 2 Units/hr IV Infusion TITRATE Stopped at 03/26/20 0730 NaCl 0.9% (NS) bolus infusion 250 mL 250 mL IV Infusion PRN - SEE INSTRUCTIONS naloxone (NARCAN) injection 0.1 mg 0.1 mg Slow IV Push SEE-INSTRUCTIONS NORepinephrine 4 mg in 0.9% NaCl 250 mL infusion RTU 0.05-1.5 mcg/kg/min IV Infusion TITRATE 2.46 mL/hr at 03/27/20 0600 0.01 mcg/kg/min at 03/27/20 0600 sennosides (SENOKOT) tablet 8.6 mg 8.6 mg Oral DAILY 8.6 mg at 03/26/20 0810 atorvastatin (LIPITOR) tablet 80 mg 80 mg Oral QPM 80 mg at 03/26/20 1724 Antibiotic(s): ancef 1 g, day#2 Infusions: Norepi 0.01 mcg/kg/min Drains: chest tube approx 10-20 per hour, 410 over 24 hours Nutrition: Cardiac diet CXR Rresults: Pending LABS: Labs: CBC BMP PT/INR WBC x10^3 (/uL) Date Value 01/10/2014 7.2 WBC (10*3/L) Date Value 03/27/2020 10.11 NA Date Value 03/27/2020 133 mmol/L (L) 01/10/2014 140 MMOL/L No results found for: PT RBC x10^6 (/uL) Date Value 01/10/2014 4.78 RBC (10*6/L) Date Value 03/27/2020 2.30 (L) K Date Value 03/27/2020 5.5 mmol/L (H) 01/10/2014 4.1 MMOL/L INR (no units) Date Value 2020 1.0 PLT x10^3 (/uL) Date Value 01/10/2014 220 PLT (10*3/L) Date Value 03/27/2020 124 (L) CALCIUM Date Value 03/27/2020 8.1 mg/dL (L) 01/10/2014 9.6 MG/DL 01/10/2014 9.6 MG/DL HGB Date Value 03/27/2020 7.0 g/dL (L) 01/10/2014 13.7 G/DL CL Date Value 03/27/2020 102 mmol/L 01/10/2014 104 MMOL/L aPTT HCT (%) Date Value 03/27/2020 20.9 (L) 01/10/2014 40.1 BUN Date Value 03/27/2020 52 mg/dL (H) 01/10/2014 28 MG/DL (H) APTT Patient (Seconds) Date Value 03/19/2020 64 (H) CREATININE Date Value 03/27/2020 6.86 mg/dL (H) 01/10/2014 1.73 MG/DL (H) ABG FIO2: PH (no units) Date Value 03/26/2020 7.43 PCO2 (mmHg) Date Value 03/26/2020 30 (L) PO2 (mmHg) Date Value 03/26/2020 122 (H) %O2HB (%) Date Value 03/26/2020 97.8 NA (mmol/L) Date Value 03/26/2020 133 (L) K+ (mmol/L) Date Value 03/26/2020 4.5 AC CA IONZ (mg/dL) Date Value 03/26/2020 4.40 (L) Physical Exam BP 106/50 | Pulse 70 | Temp 36.7 C (98.1 F) (Tympanic) | Resp 27 | Ht 1.676 m (5' 6") | Wt 65.7 kg (144 lb 13.5 oz) | SpO2 97% | BMI 23.38 kg/m General: alert and oriented x 4 (person, place, date/time and situation); no apparent distress Lungs: clear to auscultation bilaterally Cardio: S1, S2 normal; no murmurs, rubs or gallops Abdomen: soft; non-tender; non-distended; normoactive bowel sounds Extremities: no clubbing, cyanosis, or edema, missing fingers from previous amputations Neuro: no focal deficits Pain: pain controlled Sedation: not sedated. Airway: NC at 4 liters/minute Assessment & Plan Jose Combs is a 75 year old /White male S/P CABGx2 POD#2 in good condition Airway: -Nasal cannula 4 L/min Neurology: -Pain- No pain, T#3 for pain CV S/P CABG POD#2 - Hemodynamically stable, on Norepi 0.01 mcg/kg/min, intrinsic rhythm - ASA held last night - Atorvastatin -clopidogrel ordered Pulmonary: - Off ventilator support, wean O2 as tolerated - Encourage incentive spirometry - ipratropium nebulizer q6hPRN Gastrointestinal - Senokot qd - Advanced diet as tolerated, cardiac diet ordered Renal/Electrolytes: - Monitor and replete as necessary - Dialysis scheduled MWF - No urination since fuller removed Endocrinology: - Monitor and adjust SSI as needed Infectious Disease: - Ancef 1 g qd Lines - a line removed DVT Prophylaxis: SCD's, heparin DVT ppx Activity: - PT/OT consulted, saw yesterday but MAP's were low Dispo: Psb transfer to CTCU today TY CHIEF SHERIFF Associated attestation - Makayla Nelson MD - 03/27/2020 4:21 PM CSTI reviewed the patient's chart and examined the patient with Dr. Powers on 03/27/20 and agree with the resident's assessment and plan. I actively participated in the decision-making process. Pleasesee the resident's note for additional details. Mobilized to chair, NE weaned off, acute blood loss anemia, HD today, remove unnecessary lines. PT today. Tolerating a diet. Care plan discussed with family and patient. Makayla Nelson MD 03/27/20 4:20 PM Ernie Cox MD - 03/27/2020 7:00 AM CST CARDIOTHORACIC SURGERY ICU PROGRESS NOTE Date of Service: 03/27/2020 Time: 7:00 AM REGINA Combs is a 75 year old male S/p CABG x2 (MILLIGAN to LAD, SVG to OM) on 03/25/20. Procedures CABG x2 (MILLIGAN to LAD, SVG to OM) Events/Interventions past 24 hours: -- No acute events overnight -- Intrinsically pacing without requiring pacer support -- Had to initiate low dose of norepinephrine (0.02 mcg/kg/h) which is currently being weaned (now 0.01 mcg/kg/h) for MAPs in the 40s while asleep -- Patient awake, alert, extubated, not complaining of pain -- Chest tube output 110 cc since midnight -- Fuller removed -- AM CXR pending Allergies No Known Allergies Medications: Current Facility-Administered Medications Medication Dose Route Frequency Last Rate Last Admin D5W 0.9% NaCl (NS) IV infusion 1,000 mL 1,000 mL IV Infusion CONTINUOUS 20 mL/hr at 03/26/20 0954 1,000 mL at 03/26/20 0954 ipratropium (ATROVENT) 0.02 % nebulizer solution 0.5 mg 0.5 mg Inhalation Q6HPRN Sliding Scale Insulin - Aspart (NOVOLOG) + Fsbg Testing Subcutaneous Q4H Stopped at acetaminophen (TYLENOL) suppository 650 mg 650 mg Rectal Q6HPRN acetaminophen (TYLENOL) tablet 650 mg 650 mg Oral Q6HPRN acetaminophen-codeine (TYLENOL #3) 300-30 mg tablet 1 tablet 1 tablet Oral Q6HPRN 1 tablet at105/26/19 205 aspirin chewable tablet 81 mg 81 mg Oral DAILY 81 mg at 03/26/20 0809 ceFAZolin (ANCEF) 1,000 mg in NaCl 0.9% (NS) 50 mL MINI-BAG 1,000 mg IV Piggyback Q24H 1,000 mg at 03/26/20 1430 dextrose 50 % in water (D50W) injection 25 mL 25 mL Slow IV Push PRN dextrose 50 % in water (D50W) injection 25 mL 0.5 Syringe IV Push PRN docusate (COLACE) capsule 100 mg 100 mg Oral DAILY 100 mg at 03/26/20 0809 furosemide (LASIX) injection 20 mg 20 mg IV Push PRN glucagon (GLUCAGEN DIAGNOSTIC KIT) injection 1 mg 1 mg Intramuscular PRN heparin (porcine) injection 5,000 Units 5,000 Units Subcutaneous Q12H 5,000 Units at 03/26/202054 insulin regular human (HUMULIN R) 100 Units in D5W 100 mL infusion 2 Units/hr IV Infusion TITRATE Stopped at 03/26/20 0730 NaCl 0.9% (NS) bolus infusion 250 mL 250 mL IV Infusion PRN - SEE INSTRUCTIONS naloxone (NARCAN) injection 0.1 mg 0.1 mg Slow IV Push SEE-INSTRUCTIONS NORepinephrine 4 mg in 0.9% NaCl 250 mL infusion RTU 0.05-1.5 mcg/kg/min IV Infusion TITRATE 2.46 mL/hr at 03/27/20 0600 0.01 mcg/kg/min at 03/27/20 0600 sennosides (SENOKOT) tablet 8.6 mg 8.6 mg Oral DAILY 8.6 mg at 03/26/20 0810 atorvastatin (LIPITOR) tablet 80 mg 80 mg Oral QPM 80 mg at 03/26/20 1724 Antibiotic(s): 1 g Ancef Q24H per protocol Drains: Chest tube(s) - 2 Lines/Catheters: right IJ CVC, right radial a-line Physical Exam Vitals: 03/27/20 0300 03/27/20 0400 03/27/20 0500 03/27/20 0600 BP: 91/45 102/45 96/51 106/50 BP Location: Right arm Patient Position: Supine Pulse: 70 69 68 70 Resp: 25 16 18 27 Temp: 36.7 C (98.1 F) TempSrc: Tympanic SpO2: 96% 97% 97% 97% Weight: Height: Intake/Output Summary (Last 24 hours) at 03/26/2020 0721 Last data filed at 03/26/2020 0600 Gross per 24 hour Intake 2136.1 ml Output 3322 ml Net -1185.9 ml Airway: patent General: alert and oriented; no apparent distress HEENT: pupils, equal, round, reactive to light; extraocular movements intact; oropharynx clear; moist mucous membranes Respiratory: breathing comfortably on room air Cardiovascular: regular rate Chest: sternotomy incision c/d/i, mediastinal and pleural tubes draining serosanguinous fluid Gastrointestinal: soft, NT/ND and NABS Musculoskeletal: no clubbing, cyanosis or edema Integumentary: no rashes Neurologic: no focal deficits Vascular: LUE radiocephalic AVF with palpable thrill LABS: Labs: CBC BMP PT/INR WBC x10^3 (/uL) Date Value 01/10/2014 7.2 WBC (10*3/L) Date Value 03/27/2020 10.11 NA Date Value 03/27/2020 133 mmol/L (L) 01/10/2014 140 MMOL/L No results found for: PT RBC x10^6 (/uL) Date Value 01/10/2014 4.78 RBC (10*6/L) Date Value 03/27/2020 2.30 (L) K Date Value 03/27/2020 5.5 mmol/L (H) 01/10/2014 4.1 MMOL/L INR (no units) Date Value 2020 1.0 PLT x10^3 (/uL) Date Value 01/10/2014 220 PLT (10*3/L) Date Value 03/27/2020 124 (L) CALCIUM Date Value 03/27/2020 8.1 mg/dL (L) 01/10/2014 9.6 MG/DL 01/10/2014 9.6 MG/DL HGB Date Value 03/27/2020 7.0 g/dL (L) 01/10/2014 13.7 G/DL CL Date Value 03/27/2020 102 mmol/L 01/10/2014 104 MMOL/L aPTT HCT (%) Date Value 03/27/2020 20.9 (L) 01/10/2014 40.1 BUN Date Value 03/27/2020 52 mg/dL (H) 01/10/2014 28 MG/DL (H) APTT Patient (Seconds) Date Value 03/19/2020 64 (H) CREATININE Date Value 03/27/2020 6.86 mg/dL (H) 01/10/2014 1.73 MG/DL (H) ABG FIO2: 40 PH (no units) Date Value 03/26/2020 7.43 PCO2 (mmHg) Date Value 03/26/2020 30 (L) PO2 (mmHg) Date Value 03/26/2020 122 (H) %O2HB (%) Date Value 03/26/2020 97.8 NA (mmol/L) Date Value 03/26/2020 133 (L) K+ (mmol/L) Date Value 03/26/2020 4.5 AC CA IONZ (mg/dL) Date Value 03/26/2020 4.40 (L) Radiology: AM CXR pending Cultures None Assessment & Plan Jose Combs is a 75 year old male POD #2 s/p CABG x2. 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 05/02/2019 Malfunction of arteriovenous dialysis fistula, initial encounter 03/31/2019 Bilateral carotid artery stenosis 07/27/2018 TIA (transient ischemic attack) 05/29/2018 Dialysis patient 04/18/2018 ESRD (end stage renal disease) 01/03/2018 Diabetic polyneuropathy associated with type 2 diabetes mellitus 06/13/2015 Cancer of prostate with intermediate recurrence risk (stage T2b-c or [place] 7 or PSA 10-20) 11/13/2014 Undiagnosed cardiac murmurs 01/05/2013 Diabetes mellitus due to underlying condition, controlled, with chronic kidney disease on chronic dialysis, without long-term current use of insulin 02/26/2011 Essential hypertension, benign 02/26/2011 HLD (hyperlipidemia) 02/26/2011 Backache 08/05/2006 Hearing loss 08/05/2006 Neuro/Pain: Alert and oriented, pain controlled; Continue fentanyl EXTRUSION OPERATOR, T#3 Cardio: Intrinsically pacing with RRR; Continue atorvastatin, ASA 81 mg; remove arterial line Pulm: Follow-up AM CXR GI: Tolerating renal/diabetic diet : Fuller removed, makes little urine (40 cc/24H) Renal: ESRD patient dialyzing MWF, dialysis per nephrology (today), fistula with palpable thrill ID: Antibiotic prophylaxis per CT protocol Heme: Hgb 7.0, transfuse as clinically indicated with CT faculty permission Endo: SSI, insulin gtt if needed FEN: IVF KVO, potassium 5.5 (asymptomatic), plan for dialysis today Dispo: SICU, transfer to CTCU today likely Activity: OOB to chair DVT Prophylaxis: SCD's and Prophylactic Heparin Patient discussed with Dr. Whitehead on 03/27/2020 Ernie Cox MD PGY-3, Vascular Surgery Pager: [phone] TY CHIEF SHERIFF Associated attestation - Cornel Whitehead MD - 03/27/2020 9:00 AM CSTIntrinsic rhythm resolved, off pacer Minimum Levothyroxine requirements overnight, ok to wean off HD today Needs to be OOB / ambulate prior to chest tube removal BB contraindicated for hypotension Continue glycemic control - goal <200 DC EXTRUSION OPERATOR 9A today after dialysis MD Zeke Corea Jeffrey, MD - 03/26/2020 8:27 PM CST8:27 PM Pt weaned off norepi, VSS, NAD, labs reviewed 11:46 PM Pt hypotensive with maps ~50. 250cc Albumin bolus ordered. Abhinav Alanis MD be, Santiago T, PT - 03/26/2020 2:39 PM CST03/26/2020 2:39 PM Physical therapy note: Physical therapy consult received and chart reviewed. Attempted to see the patient however patient with BP 79/38 MAP 50. Will hold PT services at this time and will follow up when medically appropriatefor therapy services. Thank you. Santiago Salinas PT, DPT Pager Number: [phone] uannikaMirna Estephania - 03/26/2020 2:09 PM CST MEDICAL NUTRITION THERAPY - Follow Up I have reviewed the comprehensive progress notes dated today as well as additional physician and allied health provider notes and EPIC information for an understanding of the patient's current medical condition and plans for further treatment and care. Jose Combs is a 75 year old tristanian-speaking only malewith PMH of HTN, HLD, ESRD on HD (MWF - since 2017, fistula LA), DM2, TIA (2019), prostate cancer (s/p prostatectomy) who was admitted for worsening shortness of breath. Patient was placed on BIPAP for acute hypoxic respiratory failure, diuresed for volume overload likely 2/2 acute CHF exacerbation, and hemo-dialyzed. TTE showed EF 50- 55% with global LV hypokinesis. LHC indicated severe 3 vessel disease, patient determined candidate for CABGand underwent the surgery on 03/25/[address] Monroy's chart note on 03/25. Diet Order: (03/26) Renal I (2.5 g Na, 2.5 g K, 90 g Protein, 1200 mg Phos) Diet; (03/25) Pre-procedure Clear Liquid Diet; (03/21) Cardiac (2g Na, Low Fat/Chol) 2200 Calorie Diabetic Consistent Carbs Diet - Includes HS Snack Documented Food Allergies/Intolerance/Cultural Preferences: None GI and Nutrition Related Findings: Patient was sitting upright in chair and when asked said he was feeling better. Patient nephew and daughter were present and indicated that he is hard at hearing. He had not eating anything since being NPO for his surgery on 03/25 as he just had his breathing tube removed this morning. Per patient family, he had a bit of nausea after surgery, but it has since resolved. He has not had a BM since his surgery on 03/24. Patient has decreased appetite and only requestedcoffee and soup. Patient was agreeable to ONS, and Nepro x 2 was provided. The patient prefers it not to be refrigerated. He was observed drinking his Nepro shake during this visit. The patient's daughter indicated that he would drink Glucerna 1.2 at home. PO intake: 50 - 100 % when documented +BM: 03/24 UOP: 50 mL Last HD: 03/25 3K bath UF: 2000 mL General: Bilateral leg trace edema on 03/24, patient with DM2, Pertinent Medications: Noted. Includes: Tylenol, Aspirin, Lipitor 80 mg, Colace daily, Ancef, D5W infusion 20 mL/hr, Dulcolax 100 mg, Fentanyl EXTRUSION OPERATOR, (03/25) Fentanyl PF Q15MIN PRN, (03/25) Lasix 20 mg PRN, Humulin R, Norepinephrine 0.05- 1.5 mcg/kg/min, Senokot 8.6 mg, SSI Novolog Q4H, Zofran Q6PRN, Completed/Discontinued: (03/24) Dulcolax suppository 10 mg, (03/25) Sodium Bicarb 15 mL IV push, (03/25) Morphine 2 mg, (03/22) Amlodipine, (03/24) Miralax 17g, (03/24) Renvela 1600 mg TID meals, (03/24) Sodium Phosphates enema, (03/24) Lactated ringers IV infusion, (03/24) Levofloxacin in D5W Labs and Medical Test Results: Reviewed. Fasting BG ranges from 109 - 157 mg/dL over the past 48 hours Ref. Range 03/24/2020 04:07 03/25/2020 03:53 03/26/2020 04:03 NA Latest Ref Range: 135 - 145 mmol/L 129 (L) 128 (L) 137 K Latest Ref Range: 3.5 - 5.0 mmol/L 4.7 4.8 4.6 CL Latest Ref Range: 98 - 108 mmol/L 92 (L) 88 (L) 105 CO2 TOTAL Latest Ref Range: 23 - 31 mmol/L 27 25 21 (L) AGAP Latest Ref Range: 2 - 16 10 15 11 BUN Latest Ref Range: 7 - 23 mg/dL 48 (H) 79 (H) 35 (H) GLUCOSE Latest Ref Range: 70 - 110 mg/dL 118 (H) 126 (H) 163 (H) CREATININE Latest Ref Range: 0.60 - 1.25 mg/dL 5.99 (H) 8.18 (H) 4.73 (H) eGFR CALCULATION (non ) Latest Units: mL/min/1.73m2 9.2 6.4 12.1 CALCIUM Latest Ref Range: 8.6 - 10.6 mg/dL 9.9 9.7 7.7 (L) Ref. Range 2020 11:18 HGB A1C Latest Ref Range: 4.0 - 6.0 % 5.7 Ref. Range 2020 11:18 ALBUMIN Latest Ref Range: 3.5 - 5.0 g/dL 4.4 Ref. Range 03/26/2020 04:03 PHOSPHORUS Latest Ref Range: 2.5 - 5.0 mg/dL 3.1 Anthropometrics: Height: 5'6" (167.6 cm) Weight: 144.8 lbs (65.7 kg) Body mass index is 24.23 kg/m. IBW: 154.2 lbs (69.9 kg) at BMI 24.9 kg/m^2 %IBW: 97 % UBW: 155 lbs (70.2 kg) per patient Admit Weight: 175 lbs (79.4 kg) [72.5 kg bed weight] Wt Readings from Last 6 Encounters: 03/25/20 68.1 kg (150 lb 2.1 oz) 02/27/20 71.7 kg (158 lb) 12/12/19 72.9 kg (160 lb 11.5 oz) 11/28/19 73.9 kg (163 lb) 11/09/19 73.7 kg (162 lb 8 oz) 06/13/19 77.6 kg (171 lb) Estimated Needs: based on current weight of 65.7 kg Calories: 1618 - 1889 kcals/day ([place]. Jeor x 1.2 - 1.4 stress factor) Protein: 70 - 84 g protein/day (1 - 1.2 g protein/kg IBW) ESRD on HD Fluids: ~1000 mL/day or per MD discretion (for hydration maintenance when euvolemic, adjust rec'd goal per pt acute needs) NUTRITION DIAGNOSIS: 1) Inadequate energy intake related to decreased ability to consume sufficient energy as evidenced by recent NPO status, and decreased appetite. NUTRITION INTERVENTIONS: 1) Recommend Cardiac (2g Na, Low Fat/Chol) 1800 Calorie Diabetic Consistent Carbs Diet 2) Please provide patient with ONS Glucerna 1.2 BID vanilla flavor until patient achieves >75% meal intake. 3) Continue to monitor phosphorus levels and titrate binders as needed - Recent Phos available (3.1 mg/dL) and Renvela d/c'd. Thank you. - Phosphorus may increase with increased PO intake 4) Continue to monitor BM and titrate bowel regimen as needed - Last BM 03/24 5) Monitor calcium levels and consider calcium supplementation/repletion per MD Goal(s): 1) The patient will be able to consume 75% of all meals without any intolerances during this admission. (not met) 2) Patient will maintain weight during this stay. MONITORING/EVALUATION: - RD to continue following with Nephrology team to review pt's progress, report nutrition related information, and to revise the recommended nutrition intervention(s) if necessary; please call with questions or concerns Anticipated Discharge Needs: Reinforcement of renal diet instruction. Mirna Lofton Rv Mechanic Renal RDN Pager: [phone] TY CHIEF SHERIFF Associated attestation - Juany Corado - 03/26/2020 4:12 PM CSTI have reviewed the nutrition care plan for Jose Combs, and I agree with Mirna Lofton's note as written. I actively participated in the plan of care. Juany Corado MS, RD, INSPECTOR [employer], LD Nephrology Dietitian Pager: [phone], Andrew, MD - 03/26/2020 7:21 AM CST CARDIOTHORACIC SURGERY ICU PROGRESS NOTE Date of Service: 03/26/2020 Time: 7:21 AM HPI Jose Combs is a 75 year old male S/p CABG x2 (MILLIGAN to LAD, SVG to OM) Procedures CABG x2 (MILLIGAN to LAD, SVG to OM) Events/Interventions past 24 hours: -- No acute events overnight -- Patient now intrinsically pacing without requiring pacer support -- Had to initiate low dose of norepinephrine (0.02 mcg/kg/h) which is currently being weaned (now 0.01 mcg/kg/h) -- Sedation discontinued but patient was not fully awake for pulmonary mechanics and was on minimal vent settings. This morning patient is tolerating CPAP for 45 minutes and is meeting extubation criteria -- Chest tube output 120 cc since midnight -- Low UOP (ESRD) but urine clear (OK to remove Fuller if urine is clear per Urology) -- Pain controlled -- AM CXR pending Allergies No Known Allergies Medications: Current Facility-Administered Medications Medication Dose Route Frequency Last Rate Last Dose ipratropium (ATROVENT) 0.02 % nebulizer solution 0.5 mg 0.5 mg Inhalation Q6HPRN acetaminophen (TYLENOL) suppository 650 mg 650 mg Rectal Q6HPRN acetaminophen (TYLENOL) tablet 650 mg 650 mg Oral Q6HPRN acetaminophen-codeine (TYLENOL #3) 300-30 mg tablet 1 tablet 1 tablet Oral Q6HPRN aspirin chewable tablet 81 mg 81 mg Oral DAILY ceFAZolin (ANCEF) 1 g in NaCl 0.9% (NS) 1,000 mL OR irrigation PRN 1,000 mL at 03/25/20 1535 ceFAZolin (ANCEF) 1,000 mg in NaCl 0.9% (NS) 50 mL MINI-BAG 1,000 mg IV Piggyback Q24H D5W 0.9% NaCl (NS) IV infusion 1,000 mL 1,000 mL IV Infusion CONTINUOUS 50 mL/hr at 03/25/20 2000 1,000 mL at 03/25/20 2000 dextrose 50 % in water (D50W) injection 25 mL 25 mL Slow IV Push PRN dextrose 50 % in water (D50W) injection 25 mL 0.5 Syringe IV Push PRN docusate (COLACE) capsule 100 mg 100 mg Oral DAILY EPINEPHrine HCl in 0.9 % NaCL 4 mg/250 mL (16 mcg/mL) infusion RTU 0.01-0.7 mcg/kg/min IV Infusion TITRATE Stopped at 03/26/20 0026 FENTanyl EXTRUSION OPERATOR (5 mcg/mL NS) 150 mcg Intravenous CONTINUOUS 150 mcg at 03/25/20 2133 FENTanyl PF (SUBLIMAZE (PF)) injection 25 mcg 25 mcg Slow IV Push Q15MIN PRN furosemide (LASIX) injection 20 mg 20 mg IV Push PRN glucagon (GLUCAGEN DIAGNOSTIC KIT) injection 1 mg 1 mg Intramuscular PRN heparin (porcine) injection 5,000 Units 5,000 Units Subcutaneous Q12H heparin 1,000 unit/mL 2,500 Units, papaverine 60 mg in NaCl 0.9% (NS) 100 mL OR irrigation PRN 100 mL at 03/25/20 1537 heparin 1,000 unit/mL 30,000 Units in NaCl 0.9% (NS) 1,000 mL OR irrigation PRN 1,000 mL at105/25/19 1537 heparin 1,000 unit/mL 5,000 Units, papaverine 30 mg in NaCl 0.9% (NS) 500 mL OR irrigation PRN 500 mL at 03/25/20 1536 insulin regular human (HUMULIN R) 100 Units in D5W 100 mL infusion 2 Units/hr IV Infusion TITRATE 2 mL/hr at 03/26/20 0647 2 Units/hr at 03/26/20 0647 NaCl 0.9% (NS) bolus infusion 250 mL 250 mL IV Infusion PRN - SEE INSTRUCTIONS naloxone (NARCAN) injection 0.1 mg 0.1 mg Slow IV Push SEE-INSTRUCTIONS NORepinephrine 4 mg in 0.9% NaCl 250 mL infusion RTU 0.05-1.5 mcg/kg/min IV Infusion TITRATE 2.46 mL/hr at 03/26/20 0631 0.01 mcg/kg/min at 03/26/20 0631 propofoL IV infusion 5-50 mcg/kg/min IV Infusion TITRATE Stopped at 03/25/20 2105 sennosides (SENOKOT) tablet 8.6 mg 8.6 mg Oral DAILY Sliding Scale Insulin - Aspart (NOVOLOG) + Fsbg Testing Subcutaneous Q4H Stopped at 03/26/200000 atorvastatin (LIPITOR) tablet 80 mg 80 mg Oral QPM 80 mg at 03/24/20 1616 Antibiotic(s): 1 g Ancef Q24H per protocol Drains: Chest tube(s) - 2 Lines/Catheters: Right IJ swan kenji catheter, right IJ CVC, right radial a-line Physical Exam Vitals: 03/26/20 0630 03/26/20 0645 03/26/20 0655 03/26/20 0700 BP: 93/46 (!) 82/45 (!) 88/45 BP Location: Patient Position: Pulse: 56 55 81 72 Resp: (!) 31 28 26 21 Temp: 37 C (98.6 F) 37 C (98.6 F) 37 C (98.6 F) TempSrc: SpO2: 100% 100% 100% 99% Weight: Height: Intake/Output Summary (Last 24 hours) at 03/26/2020 0721 Last data filed at 03/26/2020 0600 Gross per 24 hour Intake 2136.1 ml Output 3322 ml Net -1185.9 ml Airway: intubated General: alert and oriented x 4 (person, place, date/time and situation); no apparent distress HEENT: pupils, equal, round, reactive to light; extraocular movements intact; oropharynx clear; moist mucous membranes Respiratory: clear to auscultation bilaterally Cardiovascular: regular rate Gastrointestinal: soft, NT/ND and NABS Musculoskeletal: no clubbing, cyanosis or edema Integumentary: no rashes Neurologic: no focal deficits Vascular: LUE radiocephalic AVF with palpable thrill LABS: Labs: CBC BMP PT/INR WBC x10^3 (/uL) Date Value 01/10/2014 7.2 WBC (10*3/L) Date Value 03/26/2020 10.95 (H) NA Date Value 03/26/2020 137 mmol/L 01/10/2014 140 MMOL/L No results found for: PT RBC x10^6 (/uL) Date Value 01/10/2014 4.78 RBC (10*6/L) Date Value 03/26/2020 2.67 (L) K Date Value 03/26/2020 4.6 mmol/L 01/10/2014 4.1 MMOL/L INR (no units) Date Value 2020 1.0 PLT x10^3 (/uL) Date Value 01/10/2014 220 PLT (10*3/L) Date Value 03/26/2020 150 CALCIUM Date Value 03/26/2020 7.7 mg/dL (L) 01/10/2014 9.6 MG/DL 01/10/2014 9.6 MG/DL HGB Date Value 03/26/2020 8.3 g/dL (L) 01/10/2014 13.7 G/DL CL Date Value 03/26/2020 105 mmol/L 01/10/2014 104 MMOL/L aPTT HCT (%) Date Value 03/26/2020 23.2 (L) 01/10/2014 40.1 BUN Date Value 03/26/2020 35 mg/dL (H) 01/10/2014 28 MG/DL (H) APTT Patient (Seconds) Date Value 03/19/2020 64 (H) CREATININE Date Value 03/26/2020 4.73 mg/dL (H) 01/10/2014 1.73 MG/DL (H) ABG FIO2: 40 PH (no units) Date Value 03/26/2020 7.43 PCO2 (mmHg) Date Value 03/26/2020 30 (L) PO2 (mmHg) Date Value 03/26/2020 122 (H) %O2HB (%) Date Value 03/26/2020 97.8 NA (mmol/L) Date Value 03/26/2020 133 (L) K+ (mmol/L) Date Value 03/26/2020 4.5 AC CA IONZ (mg/dL) Date Value 03/26/2020 4.40 (L) Radiology: AM CXR pending Cultures None Assessment & Plan Jose Combs is a 75 year old male POD #1 s/p CABG x2. 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 03/19/2020 ESRD (end stage renal disease) 03/19/2020 Dialysis patient 03/19/2020 Essential hypertension 03/19/2020 Dyspnea 2020 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 05/02/2019 Malfunction of arteriovenous dialysis fistula, initial encounter 03/31/2019 Bilateral carotid artery stenosis 07/27/2018 TIA (transient ischemic attack) 05/29/2018 Dialysis patient 04/18/2018 ESRD (end stage renal disease) 01/03/2018 Diabetic polyneuropathy associated with type 2 diabetes mellitus 06/13/2015 Cancer of prostate with intermediate recurrence risk (stage T2b-c or [place] 7 or PSA 10-20) 11/13/2014 Undiagnosed cardiac murmurs 01/05/2013 Diabetes mellitus due to underlying condition, controlled, with chronic kidney disease on chronic dialysis, without long-term current use of insulin 02/26/2011 Essential hypertension, benign 02/26/2011 HLD (hyperlipidemia) 02/26/2011 Backache 08/05/2006 Hearing loss 08/05/2006 Neuro/Pain: Alert and oriented, pain controlled; Continue fentanyl EXTRUSION OPERATOR, T#3 Cardio: Intrinsically pacing with RRR; Continue atorvastatin, ASA 81 mg; remove Stevinson Kenji catheter Pulm: Tolerating CPAP and meeting extubation criteria; extubate orders placed GI: Once extubated, advance to cardiac diet as tolerated : Fuller placed pre-op by urology given history of prostate cancer and stricture; Per urology OKto remove if urine is clear; Remove fuller once OOB to chair Renal: ESRD patient dialyzing MWF, dialysis per nephrology, fistula with palpable thrill ID: Antibiotic prophylaxis per CT protocol Heme: Hgb 8.3, transfuse as clinically indicated with CT faculty permission Endo: SSI, insulin gtt if needed FEN: IVF KVO, electrolytes within normal limits Dispo: SICU, possible transfer to CTCU tomorrow Activity: OOB to chair DVT Prophylaxis: SCD's and Prophylactic Heparin Patient discussed with Dr. Whitehead on 03/26/2020 Ernie Cox MD PGY-3, Vascular Surgery Pager: [phone] TY CHIEF SHERIFF Associated attestation - Cornel Whitehead MD - 03/27/2020 8:58 AM CSTSeen and examined. Overall progressing well MD Gio Corea Kirk, MD - 03/26/2020 6:50 AM CST SICU PROGRESS NOTE Date of Service: 03/26/2020 Time: 6:50 AM Age: [age] year old s/p CABG x2 HPI Hx of HTN, HLD, former smoker, DM2, TIA (2018), ESRD on dialysis, s/p prostatectomy. On 03/17 was admitted for NSTEMI and CHF exacerbation. Current ICU Diagnoses: -s/p CABG x2 Events/Interventions past 24 hours: - CABGx2 - Weaned of dobutamine. -On low dose norepinephrine (0.02 mcg/kg/m now to 0.01 mcg/kg/m). -Insulin gtt started for better glycemic control. -Sedation stopped - Low chest tube output. -Fuller in place (minimum UO - ESRD on dialysis) Intake/Output Summary (Last 24 hours) at 03/26/2020 0753 Last data filed at 03/26/2020 0600 Gross per 24 hour Intake 2136.1 ml Output 3322 ml Net -1185.9 ml Allergies No Known Allergies Medications: Current Facility-Administered Medications Medication Dose Route Frequency Last Rate Last Dose ipratropium (ATROVENT) 0.02 % nebulizer solution 0.5 mg 0.5 mg Inhalation Q6HPRN acetaminophen (TYLENOL) suppository 650 mg 650 mg Rectal Q6HPRN acetaminophen (TYLENOL) tablet 650 mg 650 mg Oral Q6HPRN acetaminophen-codeine (TYLENOL #3) 300-30 mg tablet 1 tablet 1 tablet Oral Q6HPRN aspirin chewable tablet 81 mg 81 mg Oral DAILY ceFAZolin (ANCEF) 1 g in NaCl 0.9% (NS) 1,000 mL OR irrigation PRN 1,000 mL at 03/25/20 1535 ceFAZolin (ANCEF) 1,000 mg in NaCl 0.9% (NS) 50 mL MINI-BAG 1,000 mg IV Piggyback Q24H D5W 0.9% NaCl (NS) IV infusion 1,000 mL 1,000 mL IV Infusion CONTINUOUS 50 mL/hr at 03/25/20 2000 1,000 mL at 03/25/20 2000 dextrose 50 % in water (D50W) injection 25 mL 25 mL Slow IV Push PRN dextrose 50 % in water (D50W) injection 25 mL 0.5 Syringe IV Push PRN docusate (COLACE) capsule 100 mg 100 mg Oral DAILY EPINEPHrine HCl in 0.9 % NaCL 4 mg/250 mL (16 mcg/mL) infusion RTU 0.01-0.7 mcg/kg/min IV Infusion TITRATE Stopped at 03/26/20 0026 FENTanyl EXTRUSION OPERATOR (5 mcg/mL NS) 150 mcg Intravenous CONTINUOUS 150 mcg at 03/25/20 2133 FENTanyl PF (SUBLIMAZE (PF)) injection 25 mcg 25 mcg Slow IV Push Q15MIN PRN furosemide (LASIX) injection 20 mg 20 mg IV Push PRN glucagon (GLUCAGEN DIAGNOSTIC KIT) injection 1 mg 1 mg Intramuscular PRN heparin (porcine) injection 5,000 Units 5,000 Units Subcutaneous Q12H heparin 1,000 unit/mL 2,500 Units, papaverine 60 mg in NaCl 0.9% (NS) 100 mL OR irrigation PRN 100 mL at 03/25/20 1537 heparin 1,000 unit/mL 30,000 Units in NaCl 0.9% (NS) 1,000 mL OR irrigation PRN 1,000 mL at105/25/19 1537 heparin 1,000 unit/mL 5,000 Units, papaverine 30 mg in NaCl 0.9% (NS) 500 mL OR irrigation PRN 500 mL at 03/25/20 1536 insulin regular human (HUMULIN R) 100 Units in D5W 100 mL infusion 2 Units/hr IV Infusion TITRATE 2 mL/hr at 03/26/20 0647 2 Units/hr at 03/26/20 0647 NaCl 0.9% (NS) bolus infusion 250 mL 250 mL IV Infusion PRN - SEE INSTRUCTIONS naloxone (NARCAN) injection 0.1 mg 0.1 mg Slow IV Push SEE-INSTRUCTIONS NORepinephrine 4 mg in 0.9% NaCl 250 mL infusion RTU 0.05-1.5 mcg/kg/min IV Infusion TITRATE 2.46 mL/hr at 03/26/20 0631 0.01 mcg/kg/min at 03/26/20 0631 propofoL IV infusion 5-50 mcg/kg/min IV Infusion TITRATE Stopped at 03/25/20 2105 sennosides (SENOKOT) tablet 8.6 mg 8.6 mg Oral DAILY Sliding Scale Insulin - Aspart (NOVOLOG) + Fsbg Testing Subcutaneous Q4H Stopped at 03/26/200000 atorvastatin (LIPITOR) tablet 80 mg 80 mg Oral QPM 80 mg at 03/24/20 1616 Antibiotic(s): None Infusions: None Drains: -Chest tube (20-20-20-10 per hour) CXR Rresults: -CXR- no pleural effusions, lung shahid clear, sternal wires present. LABS: Labs: CBC BMP PT/INR WBC x10^3 (/uL) Date Value 01/10/2014 7.2 WBC (10*3/L) Date Value 03/26/2020 10.95 (H) NA Date Value 03/26/2020 137 mmol/L 01/10/2014 140 MMOL/L No results found for: PT RBC x10^6 (/uL) Date Value 01/10/2014 4.78 RBC (10*6/L) Date Value 03/26/2020 2.67 (L) K Date Value 03/26/2020 4.6 mmol/L 01/10/2014 4.1 MMOL/L INR (no units) Date Value 2020 1.0 PLT x10^3 (/uL) Date Value 01/10/2014 220 PLT (10*3/L) Date Value 03/26/2020 150 CALCIUM Date Value 03/26/2020 7.7 mg/dL (L) 01/10/2014 9.6 MG/DL 01/10/2014 9.6 MG/DL HGB Date Value 03/26/2020 8.3 g/dL (L) 01/10/2014 13.7 G/DL CL Date Value 03/26/2020 105 mmol/L 01/10/2014 104 MMOL/L aPTT HCT (%) Date Value 03/26/2020 23.2 (L) 01/10/2014 40.1 BUN Date Value 03/26/2020 35 mg/dL (H) 01/10/2014 28 MG/DL (H) APTT Patient (Seconds) Date Value 03/19/2020 64 (H) CREATININE Date Value 03/26/2020 4.73 mg/dL (H) 01/10/2014 1.73 MG/DL (H) ABG FIO2: PH (no units) Date Value 03/26/2020 7.43 PCO2 (mmHg) Date Value 03/26/2020 30 (L) PO2 (mmHg) Date Value 03/26/2020 122 (H) %O2HB (%) Date Value 03/26/2020 97.8 NA (mmol/L) Date Value 03/26/2020 133 (L) K+ (mmol/L) Date Value 03/26/2020 4.5 AC CA IONZ (mg/dL) Date Value 03/26/2020 4.40 (L) Physical Exam BP 93/46 | Pulse 81 | Temp 37 C (98.6 F) | Resp 26 | Ht 1.676 m (5' 6") | Wt 65.7 kg (144 lb 13.5 oz) | SpO2 100% | BMI 23.38 kg/m General: alert and oriented, no apparent distress Lungs: clear to auscultation bilaterally, on facemask at 12 L/min Cardio: S1, S2 normal; no murmurs, rubs or gallops Abdomen: soft; non-tender; non-distended, Extremities: no clubbing, cyanosis, or edema Neuro: no focal deficits Pain: States he has pain but isn't bad. Sedation: not sedated. Airway: Facemask at 12 L/min saturating at 995 Assessment & Plan Jose Combs is a 75 year old /White male S/P CABG x2 POD#1 in good condition . Airway: face mask Neurology: -Pain- Has pressed fentanyl EXTRUSION OPERATOR button 175 times and received 2 doses, T#3 Cardiovascular: S/P CABG POD#1, doing good - Hemodynamically stable, on Norepi 0.01 mcg/kg/min, intrinsic rhythm - ASA held last night - Atorvastatin Pulmonary: - Off ventilator support, wean O2 as tolerated - Encourage incentive spirometry - ipratropium nebulizer q6hPRN Gastrointestinal - Senokot qd - Advanced diet as tolerated, cardiac diet ordered Renal/Electrolytes: - Monitor and replete as necessary - had dialysis yesterday preop - Urology states ok to remove fuller if urine is clear and when OOB to chair - UOP 5-10 per hour Endocrinology: - Monitor and adjust SSI as needed Infectious Disease: - No issues at this time Lines - Pull Stevinson Kenji DVT Prophylaxis: SCD's, heparin DVT ppx Activity: PT/OT consult Dispo: ICU today, psb floor tomorrow TY CHIEF SHERIFF Associated attestation - Makayla Nelson MD - 03/26/2020 4:37 PM CSTI reviewed the patient's chart and examined the patient with Dr. Powers on 03/26/20 and agree with the resident's assessment and plan. I actively participated in the decision-making process. Pleasesee the resident's note for additional details. Extubated this morning, tolerating a diet, mobilized to chair. Remains on low dose NE. Unnecessary lines removed. PT/OT following. Hyperglycemic though weaned off insulin drip. Fuller removed. Care plandiscussed with patient and at bedside. Makayla Nelson MD 03/26/20 4:36 PM Yessy Salvador MD - 03/26/2020 12:39 AM CSTSICU Brief Note -Weaned of dobutamine. -On low dose norepinephrine (0.02 mcg/kg/h). -Insulin gtt started for better glycemic control. -Sedation stopped but not fully awake for pulmonary mechanics. On minimal ventilatory support. - Low chest tube output. -Fuller in place (minimum UO - ESRD on dialysis) Case discussed with Dr. Noyoal. Yessy Mckenzie MD. TY CHIEF SHERIFF Hugo Arias MD - 03/25/2020 10:24 AM CST Dialysis Progress Notes Patient seen and examined by nephrology while receiving his dialysis treatment session, concern and question where answered, currently denies any complains, and tolerating treatment well, no headaches,no muscle cramps, his VS are been monitored, and connection sites secured with no leak or bleeds, medications was given prior to the treatment, prn Benadryl can be given for itching with dose of 25 mg slow IV, his UF is well tolerated and K path chosen appropriately according to Sr. K level. BP 109/60 | Pulse 71 | Temp 36.7 C (98.1 F) (Tympanic) | Resp 18 | Ht 1.676 m (5' 6") | Wt 68.1 kg (150 lb 2.1 oz) | SpO2 98% | BMI 24.23 kg/m Recent Results (from the past 24 hour(s)) POCT GLUCOSE (AUTOMATED) Collection Time: 03/24/20 11:06 AM Result Value Ref Range POCT GLU 149 (H) 70 - 110 mg/dL Type and Screen - Type and Screen expires at midnight on the 3rd day after it was drawn. A current Type and Screen is required when RBCs are requested. For all other blood products, a Type and Screen performed during the current hospitalization i... Collection Time: 03/24/20 12:10 PM Result Value Ref Range ABO & RH AB POSITIVE IAT Negative Prepare Packed RBC (in units), 4 Units Collection Time: 03/24/20 1:43 PM Result Value Ref Range Cross Match Result Compatible ISBT Blood Type Code 6200 Unit Blood Type A Pos Unit Number [id number] Blood Expiration Date & Time [id number] Status Information Ready Product Identification Red Blood Cells Product Code [id number] Cross Match Result Compatible ISBT Blood Type Code 6200 Unit Blood Type A Pos Unit Number [id number] Blood Expiration Date & Time Status Information Ready Product Identification Red Blood Cells Product Code [id number] Cross Match Result Compatible ISBT Blood Type Code 6200 Unit Blood Type A Pos Unit Number [id number] Blood Expiration Date & Time Status Information Ready Product Identification Red Blood Cells Product Code [id number] Cross Match Result Compatible ISBT Blood Type Code 6200 Unit Blood Type A Pos Unit Number [id number] Blood Expiration Date & Time Status Information Ready Product Identification Red Blood Cells Product Code [id number] URINALYSIS Collection Time: 03/24/20 3:53 PM Result Value Ref Range APPEARANCE Cloudy (A) Clear COLOR Yellow Yellow PH 7.0 4.8 - 8.0 SP GRAVITY 1.009 1.003 - 1.030 GLU U QUAL 150 mg/dL (A) Normal BLOOD 1+ (A) Negative KETONES Negative Negative PROTEIN 500 mg/dL (A) Negative UROBILIN Normal Normal BILIRUBIN Negative Negative NITRITE Negative Negative LEUK MADONNA 75/uL (A) Negative RBC/HPF 8 (H) 0 - 3 HPF WBC/HPF 7 (H) 0 - 5 HPF BACTERIA Moderate (A) Negative MUCOUS Slight (A) Negative LPF AMORPHOUS Rare Rare HPF SQ EPITH 3 (H) <=2 HPF POCT GLUCOSE (AUTOMATED) Collection Time: 03/24/20 5:14 PM Result Value Ref Range POCT GLU 109 70 - 110 mg/dL POCT GLUCOSE (AUTOMATED) Collection Time: 03/24/20 9:16 PM Result Value Ref Range POCT GLU 157 (H) 70 - 110 mg/dL BASIC METABOLIC PANEL (NA, K, CL, CO2, GLUCOSE, BUN, CREATININE, CA) Collection Time: 03/25/20 3:53 AM Result Value Ref Range NA 128 (L) 135 - 145 mmol/L K 4.8 3.5 - 5.0 mmol/L CL 88 (L) 98 - 108 mmol/L CO2 TOTAL 25 23 - 31 mmol/L AGAP 15 2 - 16 BUN 79 (H) 7 - 23 mg/dL GLUCOSE 126 (H) 70 - 110 mg/dL CREATININE 8.18 (H) 0.60 - 1.25 mg/dL CALCIUM 9.7 8.6 - 10.6 mg/dL eGFR Calculation (Non-) 6.4 mL/min/1.73m2 eGFR Calculation () 7.8 mL/min/1.73m2 MAGNESIUM Collection Time: 03/25/20 3:53 AM Result Value Ref Range MAGNESIUM 2.5 (H) 1.7 - 2.4 mg/dL POCT GLUCOSE (AUTOMATED) Collection Time: 03/25/20 7:51 AM Result Value Ref Range POCT GLU 127 (H) 70 - 110 mg/dL Assessment and plan Jose Combs 75 year old male with ESRD, CHF and MVD, going for CABG afternoon Plan: -Patient c/w treatment until session time completed -Patient transfer to his room -Notify primary team for any concern not directly related to HD -Notify Fellow for any related HD concern -Refer to any dialysis treatment details in the nurse today treatment note Patient seen and examined and discussed with faculty attending Ronak Osman MD Nephrology Fellow, PGY 5 Pager [phone] TY CHIEF SHERIFF Associated attestation - Jaya Sweeney MD - 03/25/2020 4:04 PM CSTI have personally discussed, evaluated/examined this patient with the fellow. I have reviewed fellows assessment and plan as outlined in the progress note and agree with overall approach to this patient. I personally participated in the decision-making process as relates to this patient's medical condition. Please refer to [place] progress note for details of the medical care provided. Jaya Sweeney MD, DIYA, Milagros Gomes, - 03/25/2020 6:52 AM CST PGY-2 White Team Progress Note Date of Service: 03/25/2020 06:52 Date of Admission: 2020 Chief Complaint: SOB 24-HOUR EVENTS: No acute events overnight. SUBJECTIVE: Patient resting comfortably in bed, denies any acute symptoms PHYSICAL EXAM: Vitals: 03/24/20 1958 03/24/20 2357 03/25/20 0351 03/25/20 0354 BP: 132/54 132/57 134/55 BP Location: Right arm Right arm Right arm Patient Position: Supine Supine Supine Pulse: 65 63 69 Resp: 18 18 18 Temp: 36.5 C (97.7 F) 36.3 C (97.3 F) 36.4 C (97.5 F) TempSrc: Oral Oral Oral SpO2: 100% 100% 100% Weight: 67.7 kg (149 lb 3.2 oz) Height: General: alert and oriented x 4 (person, place, date/time and situation); no apparent distress Lungs: clear to auscultation bilaterally Cardio: S1, S2 normal; no murmurs, rubs or gallops, regular rate and rhythm Abdomen: soft; non-tender; non-distended; normoactive bowel sounds Extremities: no clubbing, cyanosis, or edema Neuro: no focal deficits LABS/IMAGING - reviewed, pertinent results as below: ASSESSMENT/PLAN: Jose Combs is a 75 year old male who was admitted to the hospital with: 3v disease NSTEMI HTN Acute on chronic HFrEF CABG this afternoon following HD session, will transfer to CT surgery service following surgery. - HD in AM, followed by CABG in PM - cefazolin 2g for surgical ppx - holding aspirin for surgery - Lipitor 80 mg QD - coreg 25 mg BID - renally-dosed lovenox ppx ESRD on HD MWF (inpatient TuThSa) - c/w Sevelamer 1600 mg TID Meals DM2 (A1c: 5.7) HLD - SSI + Insulin Glargine 10 U Disposition Anticipated Discharge Date: 1 week Barriers to Discharge: CABG Milagros Monroy, Internal Medicine, PGY2 Richard Team END OF DAILY PROGRESS NOTE Hospital Course: Jose Combs is a 75 year old tristanian-speaking only malewith PMH of HTN, HLD, ESRD (MWF - since 2017, fistula [place]), DM2, TIA (2018), prostate cancer (s/p prostatectomy) who was admitted for worseningshortness of breath. Patient was placed on BIPAP for acute hypoxic respiratory failure, diuresed forvolume overload likely 2/2 acute CHF exacerbation, and hemo-dialyzed. TTE showed EF 50- 55% with global LV hypokinesis. LHC indicated severe 3 vessel disease, patient determined candidate for CABG and underwent the surgery on 03/25/20. TY CHIEF SHERIFF Associated attestation - Lydia Wheeler MD - 03/25/2020 2:36 PM CSTI personally examined the patient on 03/25/2020 and agree with the note as written. I actively participated in the decision-making process. Please see the note for additional details. 75 year old with DM, ESRD and TIA admitted with CHF exacerbation. Diuresed with IV lasix. LHC showedsevere MVD for CABG. Plan for CABG today.Dulce Nguyen MD - 03/24/2020 8:54 AM CST CARDIOTHORACIC SURGERY PREOPERATIVE NOTES DEPARTMENT OF SURGERY PREOPERATIVE CHECKLIST Date of Service: 03/24/2020 Planned Procedure: CABG x 3 Signed consent on chart: yes If CABG: BP: right arm (normal if systolic within 10 mm Hg) Radial artery harvest planned: no LABS HCT (%) Date Value 03/20/2020 33.7 (L) 01/10/2014 40.1 HGB Date Value 03/20/2020 11.5 g/dL (L) 01/10/2014 13.7 G/DL WBC x10^3 (/uL) Date Value 01/10/2014 7.2 WBC (10*3/L) Date Value 03/20/2020 7.55 PROTIME PATIENT (Seconds) Date Value 2020 11.0 APTT Patient (Seconds) Date Value 03/19/2020 64 (H) NA Date Value 03/24/2020 129 mmol/L (L) 01/10/2014 140 MMOL/L K Date Value 03/24/2020 4.7 mmol/L 01/10/2014 4.1 MMOL/L CL Date Value 03/24/2020 92 mmol/L (L) 01/10/2014 104 MMOL/L HCO3 (mEq/L) Date Value 2020 19 (L) BUN Date Value 03/24/2020 48 mg/dL (H) 01/10/2014 28 MG/DL (H) CREATININE Date Value 03/24/2020 5.99 mg/dL (H) 01/10/2014 1.73 MG/DL (H) No results found for: CK No results found for: CKMB CALCIUM Date Value 03/24/2020 9.9 mg/dL 01/10/2014 9.6 MG/DL 01/10/2014 9.6 MG/DL MAGNESIUM Date Value 03/24/2020 2.2 mg/dL 07/19/2013 2.0 MG/DL GLUCOSE Date Value 03/24/2020 118 mg/dL (H) 01/10/2014 186 MG/DL (H) PROTEIN (no units) Date Value 03/20/2020 100 mg/dL (A) 06/20/2014 NEGATIVE PH (no units) Date Value 03/20/2020 8.0 06/20/2014 5.0 GLU U QUAL (no units) Date Value 03/20/2020 500 mg/dL (A) 06/20/2014 150mg/dL (A) KETONES (no units) Date Value 03/20/2020 5 mg/dL (A) 06/20/2014 NEGATIVE BILIRUBIN (no units) Date Value 03/20/2020 Negative 06/20/2014 NEGATIVE BLOOD (no units) Date Value 06/20/2014 1+ (A) No results found for: UUROBILIN LEUK MADONNA (no units) Date Value 03/20/2020 500/uL (A) 06/20/2014 NEGATIVE NITRITE (no units) Date Value 03/20/2020 Negative 06/20/2014 NEGATIVE SP GRAVITY (no units) Date Value 03/20/2020 1.007 06/20/2014 1.013 Temperature max: 36.7 Temperature current: 35.5 I have reviewed the patient's labs. Significant abnormals are sodium 129, potassium 5.99 (ESRD). I have reviewed the patient's UA. UA abnormals are leukocytes 500, bacteria moderate. Plan to repeat UA/urine culture as suspect it was not a clean catch Chest X-ray interpretation: (check especially for infiltrates or nodules/masses- review with CT resident or faculty if not normal): Reviewed: yes - Carotid Bruits - if present, carotid doppler reviewed with faculty - Checked: no - For Valve Patients - no badly carious teeth present - Checked: not applicable EKG: EKG findings: RBBB, occasional premature ventricular beats, inferolateral ischemia Type and Cross-match: 4 units Confirmed with Blood Bank? No (type and screen still pending) Pre-op antibiotics: (note protocol for patients with renal dysfunction and for endocarditis patients) Ancef Allergies: No Known Allergies Current Medications: Current Facility-Administered Medications Medication Dose Route Frequency Last Rate Last Dose bisacodyL (DULCOLAX) suppository 10 mg 10 mg Rectal PRE-PROCEDURE ONCE chlorhexidine (ALIYAH-HEX) 4 % liquid Topical PRE-PROCEDURE ONCE insulin NPH (HUMULIN N) injection 2 Units 2 Units Subcutaneous PRE- PROCEDURE ONCE sodium phosphates (VPSFC-JU-VAA ENEMA) 19-7 gram/118 mL enema 1 Enema 1 Enema Rectal PRE-PROCEDURE ONCE bisacodyL (DULCOLAX) tablet 5 mg 5 mg Oral QDAILYPRN 5 mg at 03/22/20 1749 Polyethylene Glycol 3350 (MIRALAX) powder 17 g 17 g Oral DAILY 17 g at 03/24/20 0844 aspirin chewable tablet 81 mg 81 mg Oral DAILY 81 mg at 03/24/20 0844 enoxaparin (LOVENOX) injection 30 mg 30 mg Subcutaneous Q24H 30 mg at 03/23/20 1655 dextrose 50 % in water (D50W) injection 25 mL 25 mL Slow IV Push PRN insulin glargine (LANTUS U-100) injection 10 Units 0.15 Units/kg/day Subcutaneous QHS 10 Units at 03/23/202012 Sliding Scale Insulin - Aspart (NOVOLOG) + Fsbg Testing Subcutaneous TID MEALS+HS Stopped at1 1700 carvediloL (COREG) tablet 25 mg 25 mg Oral BID MEALS 25 mg at 03/24/20 0844 sevelamer (RENVELA) tablet 1,600 mg 1,600 mg Oral TID MEALS 1,600 mg at 03/24/20 0844 atorvastatin (LIPITOR) tablet 80 mg 80 mg Oral QPM 80 mg at 03/23/20 1654 glucagon (GLUCAGEN DIAGNOSTIC KIT) injection 1 mg 1 mg Intramuscular PRN morpHINE injection 2 mg 2 mg Slow IV Push Q2HPRN nitroglycerin (NITROSTAT) sublingual tablet 0.4 mg 0.4 mg Sublingual Q5MIN PRN ondansetron (ZOFRAN (PF)) injection 4 mg 4 mg Slow IV Push Q6HPRN No Clopidogrel for at least 5 days?no If YES, state the date of last dose: N/A Dulce Nguyen MD PGY-4 General Surgery 03/24/2020 TY CHIEF SHERIFF Associated attestation - Cornel Whitehead MD - 03/25/2020 9:07 AM CSTSeen and examined. For multivessel CABG 03/25/2020. Consent signed in chart MD Tejinder Corea Marissa, DO - 03/24/2020 7:03 AM CST White Team - Inpatient Progress Note Patient: Jose Combs Attending: Dejan Landaverde MB* Date of Admission: 2020 Age: [age] year old Hospitalization Day: Hospital Day: 4 Date of Service: 03/24/2020 07:03 Chief Complaint: Shortness of Breath 24-HOUR EVENTS: Telemetry: sinus rhythm with frequent PVCs (3-15) with trigeminy, HR trend 60s-80s SUBJECTIVE: Patient is feeling well this morning. He denies any chest pain, shortness of breath, or headache. Hehas no questions. PHYSICAL EXAM: Vitals: 03/23/20 1615 03/23/20 1947 03/23/20 2351 03/24/20 0401 BP: 121/54 128/77 134/58 135/55 BP Location: Right arm Patient Position: Supine Supine Supine Supine Pulse: 64 69 62 55 Resp: 20 18 18 18 Temp: 36.4 C (97.5 F) 35.7 C (96.3 F) 36.7 C (98.1 F) 36.6 C (97.8 F) TempSrc: Oral Oral Oral Oral SpO2: 97% 97% 98% 98% Weight: 66 kg (145 lb 8 oz) Height: General: alert and oriented x 4 (person, place, date/time and situation); no apparent distress Lungs: CTA anteriorly and bilaterally upper and middle lobes, fine crackles bilateral lower lobes Cardio: S1, S2 normal; no murmurs, rubs or gallops Abdomen: soft; non-tender; non-distended; normoactive bowel sounds Extremities: no clubbing, cyanosis, or edema Skin: no rashes Intake/Output Summary (Last 24 hours) at 03/24/2020 0703 Last data filed at 03/23/2020 1800 Gross per 24 hour Intake 580 ml Output 3100 ml Net -2520 ml LABS/IMAGING - reviewed ASSESSMENT/PLAN Jose Combs is a 75 year old male admitted to the hospital with: NSTEMI HTN Acute on chronic HFrEF, improving Patient pending CABG Wednesday morning. - NPOpPN for CABG in AM - ASA 81 mg QD - Lipitor 80 mg QD - coreg 25 mg BID - Heparin gtt ESRD on HD MWF (inpatient [facility]) Patient will go to dialysis tomorrow morning prior to CABG. - c/w Sevelamer 1600 mg TID Meals DM2 (A1c: 5.7) HLD Patient's sugars and fat/cholesterol are well-controled. - SSI + Insulin Glargine 10 U Resolved Conditions: Acute hypoxic respiratory failure requiring NC PAIN: Not an active problem Morphine Prophylaxis: DVT- heparin Stress Ulcer: no indication for prophylaxis Code Status: addressed: Full Code Disposition Anticipated Discharge Date : 1 week Barriers to Discharge: CABG Discharge Planning: none Radha Marr DO Department of Internal Medicine PGY-1, [facility] Team END OF DAILY PROGRESS NOTE HOSPITAL COURSE Jose Combs is a 75 year old tristanian-speaking only male with PMH of HTN, HLD, ESRD (MWF - since 2017, fistula [place]), DM2, TIA (2018), prostate cancer (s/p prostatectomy) who was admitted for worsening shortness of breath. Patient was placed on BIPAP for acute hypoxic respiratory failure, diuresed for volume overload likely 2/2 acute CHF exacerbation, and hemo-dialyzed. TTE showed EF 50- 55% with global LV hypokinesis. LHC indicated severe 3 vessel disease and possible candidate for CABG vs. High RiskPCI. Patient proceeding with CABG. CURRENT MEDICATIONS - reviewed. TY CHIEF SHERIFF Associated attestation - Izzy Guerrero MD - 03/24/2020 2:[address] discussion with Dr Hernandez , I examined this patient. I agree with resident's note as written. Izzy Solorzano MD, [facility] Cardiology FacultyKathryn Pierre MD - 03/23/2020 8:18 PM CDTI have seen and examined this patient on hemodialysis on 03/23/2020. Patient has no complaints and is tolerating dialysis well. Radha Herbert DO - 03/23/2020 7:29 AM CDT White Team - Inpatient Progress Note Patient: Jose Combs Attending: Dejan Landaverde MB* Date of Admission: 2020 Age: [age] year old Hospitalization Day: Hospital Day: 4 Date of Service: 03/23/2020 07:31 Chief Complaint: Shortness of Breath 24-HOUR EVENTS: Telemetry: sinus rhythm, HR trend 60s-80s, 1-24 PVCs/minute with trigeminy SUBJECTIVE: Patient is feeling well this morning. He is hungry. PHYSICAL EXAM: Vitals: 03/22/20 1539 03/22/20 2003 03/23/20 0004 03/23/20 0336 BP: 126/51 134/57 (!) 149/63 129/51 BP Location: Right arm Right arm Right arm Right arm Patient Position: Supine Supine Supine Supine Pulse: 57 64 66 66 Resp: 20 20 18 19 Temp: 36.1 C (97 F) 36.5 C (97.7 F) 36.6 C (97.8 F) 36.4 C (97.6 F) TempSrc: Oral Oral Oral Oral SpO2: 97% 100% 99% 99% Weight: 67.9 kg (149 lb 12.8 oz) Height: General: alert and oriented x 4 (person, place, date/time and situation); no apparent distress Lungs: CTA anteriorly and bilaterally upper and middle lobes, fine crackles bilateral lower lobes Cardio: S1, S2 normal; no murmurs, rubs or gallops Abdomen: soft; non-tender; non-distended; normoactive bowel sounds Extremities: no clubbing, cyanosis, or edema Skin: no rashes Intake/Output Summary (Last 24 hours) at 03/23/2020 0731 Last data filed at 03/23/2020 0400 Gross per 24 hour Intake 1030 ml Output 325 ml Net 705 ml LABS/IMAGING - reviewed ASSESSMENT/PLAN Jose Combs is a 75 year old male admitted to the hospital with: NSTEMI HTN Acute on chronic HFrEF, improving Patient pending CABG Wednesday. - ASA 81 mg QD - Lipitor 80 mg QD - coreg 25 mg BID - Heparin gtt - amlodipine 10 mg QD ESRD on HD MWF (inpatient [facility]) Patient will go to dialysis today. He will go to dialysis Wednesday prior to CABG. - c/w Sevelamer 1600 mg TID Meals DM2 (A1c: 5.7) HLD Patient's sugars and fat/cholesterol are well-controled. - SSI + Insulin Glargine 10 U Resolved Conditions: Acute hypoxic respiratory failure requiring NC PAIN: Not an active problem Morphine Prophylaxis: DVT- heparin Stress Ulcer: no indication for prophylaxis Code Status: addressed: Full Code Disposition Anticipated Discharge Date : 1 week Barriers to Discharge: CABG Discharge Planning: none Radha Marr DO Department of Internal Medicine PGY-1, [facility] Team Pager: [phone] END OF DAILY PROGRESS NOTE HOSPITAL COURSE Jose Combs is a 75 year old tristanian-speaking only male with PMH of HTN, HLD, ESRD (MWF - since 2018, fistula [place]), DM2, TIA (2018), prostate cancer (s/p prostatectomy) who was admitted for worsening shortness of breath. Patient was placed on BIPAP for acute hypoxic respiratory failure, diuresed for volume overload likely 2/2 acute CHF exacerbation, and hemo-dialyzed. TTE showed EF 50- 55% with global LV hypokinesis. LHC indicated severe 3 vessel disease and possible candidate for CABG vs. High RiskPCI. Patient proceeding with CABG. CURRENT MEDICATIONS - reviewed. TY CHIEF SHERIFF Associated attestation - zIzy Guerrero MD - 03/24/2020 9:[address]ST[address] discussion with Dr Marr , I examined this patient. I agree with resident's note as written. Izzy Solorzano MD, [facility] Cardiology FacultyLeidy Cherry FNP - 03/22/2020 8:[address] Surgery Update - Nephrology team unable to dialyze Mr. Combs on Wednesday - We have moved Mr. Combs to second case on Wednesday (start time ~ noon) so he can undergo dialysis onthe first shift - Plan of care discussed with Dr. Tejinder Cherry, PHOTOENGRAVER APPRENTICE-C Cardiovascular Surgery Radha Herbert DO - 03/22/2020 8:54 AM CDT White Team - Inpatient Progress Note Patient: Jose Combs Attending: Dejan Landaverde MB* Date of Admission: 2020 Age: [age] year old Hospitalization Day: Hospital Day: 4 Date of Service: 03/22/2020 08:54 Chief Complaint: Shortness of Breath 24-HOUR EVENTS: Telemetry: sinus rhythm, IVCD, trigeminal PVCs rate 1-28, trending 60s-80s NAEO SUBJECTIVE: Patient is feeling well today. He has no chest pain or headache. He has no complaints. PHYSICAL EXAM: Vitals: 03/21/20 1956 03/21/20 2325 03/22/20 0400 03/22/20 0808 BP: 138/56 124/58 (!) 144/57 (!) 140/60 BP Location: Right arm Right arm Right arm Right arm Patient Position: Supine Supine Supine Supine Pulse: 73 73 64 58 Resp: 18 18 18 16 Temp: 36.7 C (98 F) 36.6 C (97.9 F) 36.6 C (97.8 F) 36 C (96.8 F) TempSrc: Oral Oral Oral Oral SpO2: 95% 97% 97% 97% Weight: 65.3 kg (144 lb) Height: General: alert and oriented x 4 (person, place, date/time and situation); no apparent distress Lungs: CTAB Cardio: S1, S2 normal; no murmurs, rubs or gallops Abdomen: soft; non-tender; non-distended; normoactive bowel sounds Extremities: no clubbing, cyanosis, or edema Skin: no rashes Intake/Output Summary (Last 24 hours) at 03/22/2020 0854 Last data filed at 03/22/2020 0808 Gross per 24 hour Intake 517 ml Output 2629 ml Net -2112 ml LABS/IMAGING - reviewed Carotid Duplex: 50-79% BILATERAL INTERNAL CAROTID ARTERY STENOSIS. ASSESSMENT/PLAN Jose Combs is a 75 year old male admitted to the hospital with: NSTEMI HTN Acute on chronic HFrEF, improving Patient continuing to be diuresed. Patient will go for CABG on Wednesday. He will need to be dialyzed immediately before the procedure. - talk to dialysis to make sure scheduled for Wednesday thing - lasix 40 mg BID - ASA 81 mg QD - Lipitor 80 mg QD - coreg 25 mg BID - Heparin gtt - amlodipine 10 mg QD ESRD on HD MWF (inpatient [facility]) Patient will go to dialysis today. - c/w Sevelamer 1600 mg TID Meals - call about dialysis Wednesday DM2 (A1c: 5.7) HLD Patient's sugars and fat/cholesterol are well-controled. - SSI + Insulin Glargine 10 U Resolved Conditions: Acute hypoxic respiratory failure requiring NC PAIN: Not an active problem Morphine Prophylaxis: DVT- heparin Stress Ulcer: no indication for prophylaxis Code Status: addressed: Full Code Disposition Anticipated Discharge Date : 1 week Barriers to Discharge: CABG Discharge Planning: none Radha Marr DO Department of Internal Medicine PGY-1, [facility] Team Pager: [phone] END OF DAILY PROGRESS NOTE HOSPITAL COURSE Jose Combs is a 75 year old tristanian-speaking only male with PMH of HTN, HLD, ESRD (MWF - since 2017, fistula [place]), DM2, TIA (2019), prostate cancer (s/p prostatectomy) who was admitted for worsening shortness of breath. Patient was placed on BIPAP for acute hypoxic respiratory failure, diuresed for volume overload likely 2/2 acute CHF exacerbation, and hemo-dialyzed. TTE showed EF 50- 55% with global LV hypokinesis. LHC indicated severe 3 vessel disease and possible candidate for CABG vs. High RiskPCI. Patient proceeding with CABG and is intended to be performed this week. CURRENT MEDICATIONS - reviewed. Associated attestation - Lydia Wheeler MD - 03/22/2020 3:56 PM CDTI personally examined the patient on 03/22/2020 and agree with the note as written. I actively participated in the decision-making process. Please see the note for additional details. 75 year old with DM, ESRD and TIA admitted with CHF exacerbation. Diuresed with IV lasix. [facility] showedsevere MVD for CABG. Plan for CT surgery next Wednesday. Will have to keep inpatient given his complex severe CAD. Will continue IV diuresis. Hugo Arias MD - 03/21/2020 2:51 PM CDT Nephrology Progress Notes Patient seen and examined by nephrology due to ESRD, with pulmonary edema PHYSICAL EXAM Appearance: patient alert and in no acute distress on O2 supplements Nose: nares normal, septum midline, mucosa pink and moist with no drainage or sinus tenderness Neck: supple, no bruit, no lymphadenopathy or thyromegaly Cardiovascular: regular rate and rhythm, no murmur, S1, S2, no murmur, click, gallop or rubs Respiratory: clear to auscultation and percussion, bilaterally, Auscultation: crackles: bilaterally Abdomen: soft, non-tender, non-distended, no liver, spleen or abnormal masses palpated Extremities: extremities, peripheral pulses and reflexes normal, pedal edema Neurologic: normal gait and station, deep tendon reflexes symmetric, normal range, central nerves II - XII intact BP 115/65 | Pulse 72 | Temp 36.6 C (97.8 F) (Oral) | Resp 18 | Ht 1.676 m (5' 6") | Wt 68.4kg (150 lb 12.7 oz) | SpO2 99% | BMI 24.34 kg/m Current Facility-Administered Medications Medication Dose Route Frequency Last Rate Last Dose amLODIPine (NORVASC) tablet 10 mg 10 mg Oral DAILY Stopped at 03/21/20 0900 aspirin chewable tablet 81 mg 81 mg Oral DAILY 81 mg at 03/21/20 0913 enoxaparin (LOVENOX) injection 30 mg 30 mg Subcutaneous Q24H 30 mg at 03/20/202057 furosemide (LASIX) injection 40 mg 40 mg Slow IV Push Q12H 40 mg at 03/21/20 09 dextrose 50 % in water (D50W) injection 25 mL 25 mL Slow IV Push PRN insulin glargine (LANTUS U-100) injection 10 Units 0.15 Units/kg/day Subcutaneous QHS 10 Units at 03/20/202055 Sliding Scale Insulin - Aspart (NOVOLOG) + Fsbg Testing Subcutaneous TID MEALS+HS Stopped at1 0800 carvediloL (COREG) tablet 25 mg 25 mg Oral BID MEALS Stopped at 03/21/20 0800 sevelamer (RENVELA) tablet 1,600 mg 1,600 mg Oral TID MEALS 1,600 mg at 03/21/20 0913 atorvastatin (LIPITOR) tablet 80 mg 80 mg Oral QPM 80 mg at 03/20/20 1725 glucagon (GLUCAGEN DIAGNOSTIC KIT) injection 1 mg 1 mg Intramuscular PRN morpHINE injection 2 mg 2 mg Slow IV Push Q2HPRN nitroglycerin (NITROSTAT) sublingual tablet 0.4 mg 0.4 mg Sublingual Q5MIN PRN ondansetron (ZOFRAN (PF)) injection 4 mg 4 mg Slow IV Push Q6HPRN Comments: Quirino Morales, 75 year old with pulmonary edema due to missing HD session, EDW 72 kg, currently is asymptomatic and had HD Sat Plan: # ESRD HD today target new EDW 67 kg # Vascular AVF access Patient evaluated by vascular no intervention at time being, follow recs - Daily weight - Daily BMP and phos - Eogen 4000 Us with HD - Strict I&Os - Adjust meds doses d/w attending Flaco Crowell MD Nephrology Fellow, PGY5 Pager [phone] TY CHIEF SHERIFF Associated attestation - Jaya Sweeney MD - 03/25/2020 4:05 PM CSTI have personally discussed, evaluated/examined this patient with the fellow 03-21-2020 for HD needs. I have reviewed fellows assessment and plan as outlined in the progress note and agree with overall approach to this patient. I personally participated in the decision-making process as relates to this patient's medical condition. Please refer to [place] progress note for details of the medical care provided. Jaya Sweeney MD, DIYA, Yaquelin Curran, OT - 03/21/2020 11:33 AM CDT1 1133 OCCUPATIONAL THERAPY NOTE: Consult received, chart reviewed, and eval attempted. However, patient is currently away from unit for dialysis. OT will try again at a later time as schedule permits. Benigno Hutchison, OTR [phone] signed by Yaquelin Hutchison, OT at 03/21/2020 11:34 AM Lesia Au, PT - 03/21/2020 11:31 AM CDTPT note: Consult received, chart reviewed. Attempted PT evaluation, however patient away at dialysis. Will follow up this afternoon as able. 2:21 PM Attempted again, however patient still off the unit. Lesia Velez, PT, DPT Pager # [phone] Radha Herbert DO - 03/21/2020 6:39 AM CDT White Team - Inpatient Progress Note Patient: Jose Combs Attending: Dejan Landaverde MB* Date of Admission: 2020 Age: [age] year old Hospitalization Day: Hospital Day: 4 Date of Service: 03/21/2020 06:39 Chief Complaint: Shortness of Breath 24-HOUR EVENTS: Telemetry:sinus, trigeminal PVCs, bigeminal PVCs. PVC rate 2-17/minute. 3 beats NSVT @ 0523, HR trend 60s-70s NAEO SUBJECTIVE: Patient feels well today. He has no chest pain or shortness of breath. He otherwise feels well. PHYSICAL EXAM: Vitals: 03/20/20 1555 03/20/20 2111 03/21/20 0023 03/21/20 0514 BP: (!) 155/60 (!) 143/63 (!) 162/70 (!) 146/66 BP Location: Right arm Right arm Right arm Patient Position: Supine Supine Supine Supine Pulse: 52 67 69 53 Resp: 20 16 18 Temp: 36.6 C (97.9 F) 35.8 C (96.4 F) 36.5 C (97.7 F) 36.4 C (97.5 F) TempSrc: Oral Oral Oral Oral SpO2: 99% 98% 98% 99% Weight: 67.9 kg (149 lb 11.2 oz) Height: General: alert and oriented x 4 (person, place, date/time and situation); no apparent distress Lungs: CTA anteriorly and bilaterally upper and middle lobes, fine crackles bilateral lower lobes Cardio: S1, S2 normal; no murmurs, rubs or gallops Abdomen: soft; non-tender; non-distended; normoactive bowel sounds Extremities: no clubbing, cyanosis, or edema Skin: no rashes Intake/Output Summary (Last 24 hours) at 03/21/2020 0639 Last data filed at 03/21/2020 0514 Gross per 24 hour Intake 700 ml Output 475 ml Net 225 ml LABS/IMAGING - reviewed ASSESSMENT/PLAN Quirino Morales is a 75 year old male admitted to the hospital with: NSTEMI HTN Acute on chronic HFrEF, improving Patient continuing to be diuresed. Pending carotid duplex for CT surgery workup. - follow-up carotid duplex - follow-up UA with aseptic technique - lasix 40 mg BID - ASA 81 mg QD - Lipitor 80 mg QD - coreg 25 mg BID - Heparin gtt - amlodipine 10 mg QD [facility] Patient will go to dialysis today. - c/w Sevelamer 1600 mg TID Meals DM2 (A1c: 5.7) HLD Patient's sugars and fat/cholesterol are well-controled. - SSI + Insulin Glargine 10 U - c/w lipitor 80mg PO QPM Resolved Conditions: Acute hypoxic respiratory failure requiring NC PAIN: Not an active problem Morphine Prophylaxis: DVT- heparin Stress Ulcer: no indication for prophylaxis Code Status: addressed: Full Code Disposition Anticipated Discharge Date : 1 week Barriers to Discharge: CABG Discharge Planning: none Radha Marr DO Department of Internal Medicine PGY-1, [facility] Team Pager: [phone] END OF DAILY PROGRESS NOTE HOSPITAL COURSE Jose Combs is a 75 year old tristanian-speaking only male with PMH of HTN, HLD, ESRD (MWF - since 2018, fistula [place]), DM2, TIA (2019), prostate cancer (s/p prostatectomy) who was admitted for worsening shortness of breath. Patient was placed on BIPAP for acute hypoxic respiratory failure, diuresed for volume overload likely 2/2 acute CHF exacerbation, and hemo-dialyzed. TTE showed EF 50- 55% with global LV hypokinesis. LHC indicated severe 3 vessel disease and possible candidate for CABG vs. High RiskPCI. Patient proceeding with CABG and is intended to be performed this week. CURRENT MEDICATIONS - reviewed. Associated attestation - Lydia Wheeler MD - 03/21/2020 7:48 PM CDTI personally examined the patient on 03/21/2020 and agree with the note as written. I actively participated in the decision-making process. Please see the note for additional details. 75 year old with DM, ESRD and TIA admitted with CHF exacerbation. Diuresed with IV lasix. LHC showedsevere MVD for CABG. Plan for CT surgery next Wednesday. Will have to keep inpatient given his complex severe CAD. Will continue IV diuresis. Leidy Cherry FNP - 03/20/2020 12:[address] Surgery Update - Patient scheduled for CABG on 03/25/[address] Whitehead - This date was chosen since last doses of Plavix was 03/19/2020 - Okay to continue baby ASA just none the morning of surgery - Do not give amlodipine on Saturday 03/24. Please modify current order with end date of 03/23 so this request is not overlooked. - Please do not start ILEANA inhibitor since this will need to be held for at least 24 hours prior to surgery - Patient should be dialyzed on Wednesday in preparation for surgery on Wednesday - Reviewed repeat CXR yesterday - Follow up on carotid duplex, UA and urine culture - Preop orders to be placed by a member of our team on Wednesday - Please consult PT/OT to start ambulating. Should be up walking halls piror to surgery. ZAINAB Stafford Cardiothoracic Surgery Radha Herbert DO - 03/20/2020 6:52 AM CDT [facility] Team - Inpatient Progress Note Patient: Quirino Morales Attending: Dejan Landaverde MB* Date of Admission: 2020 Age: [age] year old Hospitalization Day: Hospital Day: 4 Date of Service: 03/20/2020 06:52 Chief Complaint: Shortness of Breath 24-HOUR EVENTS: Telemetry: Occasional PVCs with small trigeminal runs for ~3 seconds. IVCD. Trending 60s-80s. NAEON SUBJECTIVE: [place] translation services over phone is not sufficient due to hearing difficulty for patient. In-person translation is better for patient as he says that he is hard of hearing. Patient is feeling better - no complaint of chest pain, shortness of breath, palpitations, or headache. Patient would like to have the surgery. PHYSICAL EXAM: Vitals: 03/19/20 2001 03/19/20 2200 03/19/20 2338 03/20/20 0502 BP: 139/63 115/62 133/55 136/63 Pulse: 72 69 69 Resp: 13 14 20 20 Temp: 36.7 C (98.1 F) 36.3 C (97.4 F) 36.5 C (97.7 F) TempSrc: Axillary Oral Oral SpO2: 98% 100% 99% Weight: 64.6 kg (142 lb 6.7 oz) 67.5 kg (148 lb 12.8 oz) Height: 1.676 m (5' 6") General: alert and oriented x 4 (person, place, date/time and situation); no apparent distress Lungs: clear to auscultation bilaterally Cardio: S1, S2 normal; no murmurs, rubs or gallops Abdomen: soft; non-tender; non-distended; normoactive bowel sounds Extremities: no clubbing, cyanosis, or edema Skin: no rashes Intake/Output Summary (Last 24 hours) at 03/20/2020 0652 Last data filed at 03/19/2020 2338 Gross per 24 hour Intake 352.5 ml Output 3200 ml Net -2847.5 ml LABS/IMAGING - reviewed Hgb: 11.5 = 11. 5 < 12 M.1 K: 4.5 BUN: 33 < 66 > 36 Cr: 4.77 < 8.58 > 5.45 EGFR: 11.9 > 6.1 < 10.2 03/19/2020 - aPTT: 64 TTE (03/18/2020): Ejection Fraction = 50-55%.Mild golbal LV hypokinesis with more marked hypokinesis of the inferobasal segments LHC (03/19/2020): 1. Severe 3 vessel disease 1. 60-70% ostial LAD and 60-70% mid LAD 2. 70% prox LCx and 85% mid LCx 3. Prox RCA 100% [employer]PORT LOCATION MANAGER 2. Mildly elevated left sided filling pressures 3. Normal left subclavian 4. Stenosis in right SFA ASSESSMENT/PLAN Quirino Morales is a 75 year old male admitted to the hospital with: NSTEMI Patient underwent LHC yesterday indicating severe triple vessel disease. CV Surgery consulted for CABG intervention otherwise high risk PCI (LM/LAD/LCx bifurcation with MCS). Discussed with patient about having the surgery, initially through [facility] translation services; however, patient has difficulty h earing the hospice clinical supervisor. Using in person translation, he states he would like to have the surgery, butdoes not seem to understand the exact procedure. He voices understanding that this surgery could be tomorrow or Wednesday. - CV surgery recs: carotid duplex, UA with aseptic technique, urine culture, repeat CXr - start reduced dosage of lasik 40 mg BID - c/w ASA 81 mg QD - c/w Lipitor 80 mg QD - c/w coreg 25 mg BID - c/w Heparin gtt - c/w amlodipine 10 mg QD ESRD Patient received HD yesterday after LHC and doing better for pulmonary edema, volume overload. - HD MWF - c/w Sevelamer 1600 mg TID Meals DM2 (A1c: 5.7) HLD Patient's sugars and fat/cholesterol are well-controled. - SSI + Insulin Glargine 10 U - c/w lipitor 80mg PO QPM PAIN: Not an active problem Morphine Prophylaxis: DVT- heparin Stress Ulcer: no indication for prophylaxis Code Status: addressed: Full Code Disposition Anticipated Discharge Date : 1 week Barriers to Discharge: CABG Discharge Planning: none Esme Salvador, MS3 I personally examined the patient on 03/20/2020 and have verified the medical student documentation and/or findings, including the history, physical exam, and medical decision making. Additionally, I have personally performed or re- performed the physical exam and medical decision making activities of this patient's evaluation and management service. Radha Marr DO Department of Internal Medicine PGY-1, [facility] Team Pager: [phone] END OF DAILY PROGRESS NOTE HOSPITAL COURSE Quirino Morales is a 75 year old tristanian-speaking only male with PMH of HTN, HLD, ESRD (MWF - since 2018, fistula [place]), DM2, TIA (2019), prostate cancer (s/p prostatectomy) who was admitted for worseningshortness of breath. Patient was placed on BIPAP for acute hypoxic respiratory failure, diuresed forvolume overload likely 2/2 acute CHF exacerbation, and hemo-dialyzed. TTE showed EF 50- 55% with global LV hypokinesis. LHC indicated severe 3 vessel disease and possible candidate for CABG vs. High Risk PCI. Patient proceeding with CABG and is intended to be performed this week. CURRENT MEDICATIONS - reviewed. Associated attestation - Lydia Wheeler MD - 03/20/2020 1:28 PM CDTI personally examined the patient on 03/20/2020 and agree with the note as written. I actively participated in the decision-making process. Please see the note for additional details. 75 year old with DM, ESRD and TIA admitted with CHF exacerbation. Diuresed with IV lasix. LHC showedsevere MVD for CABG. Awaiting CT surgery input. Will continue IV diuresis given elevated LVEDP. Marcelino Feng [facility] - 03/19/2020 4:13 PM CDT CCU Team Progress Note Date of Service: 03/19/2020 16:13 Chief Complaint: shortness of breath 24-HOUR EVENTS: - No acute events over past 24 hours. - BIPAP weaned off yesterday and the patient is comfortable on low flow nasal cannula. - Left heart catheter done today revealing MVD for surgical revascularization. CTS consulted. SUBJECTIVE: Patient denies any further chest pain, sob improved after HD. PHYSICAL EXAM: Vitals: 03/19/20 1515 03/19/20 1530 03/19/20 1545 03/19/20 1600 BP: (!) 163/58 (!) 171/56 (!) 171/63 (!) 153/73 Pulse: 63 67 61 63 Resp: 22 Temp: TempSrc: SpO2: 98% Weight: Height: Temp: [36.2 C (97.2 F)-36.4 C (97.5 F)] Heart Rate (monitor): [54-246] Pulse: [50-78] Resp: [0-51] BP: (127-174)/(47-77) MAP (mmHg): [71-98] Intake/Output Summary (Last 24 hours) at 03/19/2020 1613 Last data filed at 03/19/2020 1515 Gross per 24 hour Intake 360.8 ml Output 1475 ml Net -1114.2 ml Gen: NAD, AOx4 HEENT: EOMI, MMM P: CTAB - no wheezes, rhochi, stridor, crackles CV: RRR - no murmurs, clicks, gallops, rubs Abd: NT, Soft, Normoactive Bowel sounds MSK: 5/5 strength in bilateral upper and lower extremities, intact sensation to LT in bilateral upper and lower extremities. Ext: No peripheral edema Neuro: CN2-12 grossly intact, peripheral sensation intact LABS/IMAGING - reviewed, pertinent results as below: Troponin 0.463 --> 0.370 --> 0.284 TTE on 03/18/2020 Ejection Fraction = 50-55%.Mild golbal LV hypokinesis with more marked hypokinesis of the inferobasal segments LHC on 03/18/2020 Coronary dominance: right Left main: Distal LM 20% LAD: Ostial LAD 60-70% discrete stenosis Mid LAD 60-70% D1: Small sized, mild athero D2: Mild athero RI: Small sized, mild athero LCX: Prox LCx 70% Mid LCx 85% OM1: 50% diffuse stenosis RCA: Prox RCA 100% AIRPORT LOCATION MANAGER Distal RCA supplied by LAD septal collaterals PDA and PLB: Supplied by LAD septal collaterals LVEDP: 21 mmHg Subclavian Angiogram: Patent left subclavian and CAITLYN Right External Iliac angiogram: EIA normal ALLIANCE MANAGER mild athero SFA 70% prox stenosis Profunda proximally patent Impression: 1. Severe 3 vessel disease 1. 60-70% ostial LAD and 60-70% mid LAD 2. 70% prox LCx and 85% mid LCx 3. Prox RCA 100% AIRPORT LOCATION MANAGER 2. Mildly elevated left sided filling pressures 3. Normal left subclavian 4. Stenosis in right SFA Plan: 1. Aggressive medical therapy 2. Continue aspirin, stop plavix 3. Consult CV surgery (I reviewed films with Dr Palmer) 4. If he is not a surgical candidate, we can discuss approach for PCI (he will possibly need LM/LAD/LCx bifurcation with MCS since right system is also dependent on LAD collaterals). 5. Findings and plan discussed with patient, primary team and CV surgery. ASSESSMENT/PLAN Quirino Morales is a 75 year old male with PMH as listed above, admitted to the hospital with NSTEMI, acute hypoxic respiratory failure and volume overload likely 2/2 CHF exacerbation: NSTEMI - LHC done on 03/19 revealing MVD for surgical evaluation. Acute Hypoxic Respiratory Failure - on BIPAP - Resolved Volume overload - likely 2/2 acute CHF exacerbation - Resolved. Pulmonary edema - Resolved. ESRD - on HD (MWF) Comment: 75 y.o M presenting with 2 week history of worsening sob and fatigue, with acute respiratory decompensation today morning currently requiring BIPAP. EKG in ER with ST depression in inferior leads, troponins are trending up, concerning for NSTEMI. No respiratory distress noted on BIPAP. CXR shows pulmonary edema, NT-BNP increased to 25,200 concerning for CHF exacerbation. LHC done on 03/19 revealing multivessel disease for surgical evaluation. Plavix discontinued. HD session after C. - ASA 81mg daily - Lipitor 80mg daily - Coreg increased to 25mg bid - C/w heparin gtt - Amlodipine 10mg daily - Continue diuresis. We'll reduce lasix to 40 mg bid from tomorrow. - Cardiac diet. - Patient will be transferred to [place] team. DM2 HLD Comment: not on and glycemic medications at home currently. - A1c - SSI Code status: Full code. Marcelino Feng MD composition stone applicator Pager # [phone] 03/19/2020 END OF DAILY PROGRESS NOTE CURRENT MEDICATIONS - reviewed. Current Facility-Administered Medications Medication Dose Route Frequency Last Rate Last Dose cefTRIAXone (ROCEPHIN) 1,000 mg in NaCl 0.9% (NS) 50 mL MINI-BAG 1,000 mg IV Piggyback Q24H ABX 1,000 mg at 03/19/20 0754 heparin (PF) 1,000 unit/mL injection 1,500 Units 1,500 Units Slow IV Push DIALYSIS ONCE - PT ROOM Stopped at 03/19/20 1400 Followed by heparin (PF) 1,000 unit/mL injection 1,500 Units 1,500 Units Slow IV Push DIALYSIS ONCE - PT ROOM Stopped at 03/19/20 1400 carvediloL (COREG) tablet 25 mg 25 mg Oral BID MEALS 25 mg at 03/19/20 0754 Saline Bubble Study 6 mL Injection SEE-INSTRUCTIONS 6 mL at 03/18/20 1430 Saline Bubble Study 6 mL Injection SEE-INSTRUCTIONS 6 mL at 03/18/20 1430 sevelamer (RENVELA) tablet 1,600 mg 1,600 mg Oral TID MEALS 1,600 mg at 03/18/20 1724 amLODIPine (NORVASC) tablet 10 mg 10 mg Oral DAILY 10 mg at 03/19/20 0754 aspirin chewable tablet 81 mg 81 mg Oral DAILY 81 mg at 03/19/20 0754 atorvastatin (LIPITOR) tablet 80 mg 80 mg Oral QPM 80 mg at 03/18/20 1724 dextrose 50 % in water (D50W) injection 25 mL 25 mL Slow IV Push PRN furosemide (LASIX) injection 80 mg 80 mg Slow IV Push Q12H Stopped at 03/19/20 0800 glucagon (GLUCAGEN DIAGNOSTIC KIT) injection 1 mg 1 mg Intramuscular PRN heparin (1,000 unit/mL, 10 mL vial) for Rebolusing 3,000 Units Slow IV Push FOR REBOLUSING 3,000 Units at 03/18/20 2138 heparin 25,000 Units/250 mL (Premixed Bag) in 0.45 % NS 12 Units/kg/hr IV Infusion TITRATE 10.03 mL/hr at 03/19/20 1509 1,003 Units/hr at 03/19/20 1509 morpHINE injection 2 mg 2 mg Slow IV Push Q2HPRN nitroglycerin (NITROSTAT) sublingual tablet 0.4 mg 0.4 mg Sublingual Q5MIN PRN nitroglycerin 50 mg in D5W 250 mL infusion RTU 5-200 mcg/min IV Infusion TITRATE Stopped at 03/17/20 1600 ondansetron (ZOFRAN (PF)) injection 4 mg 4 mg Slow IV Push Q6HPRN Associated attestation - Cristhian Ulloa MD - 03/20/2020 8:29 AM CDT Patient seen, examined and interviewed by myself. EMR and chart reviewed. I actively participated in the decision-making process. I read Dr. Feng note, agree with findings and recommendations. I spent more than 35 minutes. Cristhian Ulloa MD Gate Attendant Section of Cardiology, Advanced Heart Failure/Mechanical Circulatory Support/Transplant. Date of Service: 03/19/2020 Milagros Monroy DO - 03/19/2020 3:10 PM Jaswant Hughes Acceptance Note Date of Service: 03/19/2020 15:10 Date of Admission: 2020 Chief Complaint: SOB 24-HOUR EVENTS: - [facility] with multi-vessel disease - received session of HD PENDING LABS/IMAGING/CONSULTS/PROCEDURES: - will need to re-address code status ASSESSMENT/PLAN: NSTEMI Acute hypoxic respiratory failure requiring NC Acute on chronic HFrEF HTN Pulmonary edema ESRD on HD MWF - continue aspirin, hold plavix - heparin gtt - continue amlodipine, atorvastatin, carvedilol - continue lasix 80mg IV Q12H, will titrate for 1-2L urine output daily - f/u CT surgery recs - will hold on additional studies until surgery determines he is a candidate for CABG - if not a candidate for CABG, will proceed with PCI - wean O2 as tolerated, likely able to go back to RA once volume status improves DM II HLD A1c 11.5%, will start on basal/bolus insulin. 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 Mr. Jessee Combs (previously under the Perlita Gonzalez name Quirino Andrew) is a 75 year old male with PMH of HTN, HLD, ESRD on HD (MWF - since 2018), DM2, TIA, prostrate cancer (s/p prostatectomy who is tristanian-speaking only). He presented to the ER with c/o worsening SOB. Pt states that he started feeling increasingly tired and SOB/GONZALEZ during the past 2 weeks. CXR shows pulmonary edema. Patient was started on heparin gtt for NSTEMI and underwent an emergent HD session 03/17. Patient transitioned from BIPAP to nasal canula. Clot noted by HD nurse at fistula access site, so had to cannulate higher. Vascular surgery consulted and noted no indication for surgical intervention. Patient denies further chest pain and SOB improved after HD per Dr. Allison's chart note on 03/19. Food/Nutrition-Related History: Patient's daughter is power of finance attorney and was able to answer all questions. She reports that he has had a strong appetite and has completed all of his meals at least for the past two weeks with no (non- fluid) weight changes. No complaints of n/v. Patient had a small amount of diarrhea this morning. We discussed his potassium level upon arrival and the patient's daughter verified that it typically runs on the higher end of the normal range and sometimes above normal limits. She says they do not typically follow a renal diet at home but the dialysis RD has provided nutrition information on this topic. We also spoke about the effect of sodium on fluid retention, specifically in relation to CHF. They do cook with salt at home, but patient's daughter was agreeable to trying no-salt seasoning. She verified that he was taking a phosphorus binder (Sevelamer 1600 mg) with meals. She also said he was taking calcium carbonate as well. NFPE findings show moderate subcutaneo us fat loss (triceps) and mild muscle wasting (temporal). GI and Nutrition Related Findings: Nausea (-) Vomiting (-) Constipation (+ prior to today, last BM was 03/16) Diarrhea (+, small amountthis AM per patient) Abdominal Pain (-) Difficulty: Chewing (-) Swallowing (-) GI tract alteration (-) (e.g., h/o bariatric surgery, ostomy, resection, etc.) Alternative means of nutrition (-) (e.g., PEG/PEJ, TPN, DHT, etc.) PO intake: 100 % per vacuum technician +BM: 03/19 per patient UOP: 1475 Last HD: 03/17, UF: 2000 mL Intake/Output Summary (Last 24 hours) at 03/19/2020 0924 Last data filed at 03/19/2020 0800 Gross per 24 hour Intake 490.8 ml Output 1475 ml Net -984.2 ml General: Edema (+, trace bilateral foot) Ascites (-) Para or Quadriplegia (-) Amputation (-) Wounds (-) Trauma/Surgical Incisions (-) Diabetes (+, DM2) Food Assistance (-) Home Provider (-) Pertinent Medications: Noted. Includes: Amlodipine, Aspirin, Lipitor 80 mg, Plavix, Lasix 80 mg IV push Q12H, Morphine Q2HPRN, Zofran IV push Q6H PRN, Sevelamer 1,600 mg TID meals Fentanyl PF, Versed given 03/19 for procedure, Labs and Medical Test Results: Reviewed. Fasting BG ranges from 94 - 200 mg/dL over the past 48 hours Ref. Range 2020 08:45 03/18/2020 02:50 NA Latest Ref Range: 135 - 145 mmol/L 139 137 K Latest Ref Range: 3.5 - 5.0 mmol/L 5.4 (H) 4.2 CL Latest Ref Range: 98 - 108 mmol/L 103 98 CO2 TOTAL Latest Ref Range: 23 - 31 mmol/L 20 (L) 27 AGAP Latest Ref Range: 2 - 16 16 12 BUN Latest Ref Range: 7 - 23 mg/dL 65 (H) 36 (H) GLUCOSE Latest Ref Range: 70 - 110 mg/dL 200 (H) 94 CREATININE Latest Ref Range: 0.60 - 1.25 mg/dL 7.76 (H) 5.45 (H) eGFR CALCULATION (non ) Latest Units: mL/min/1.73m2 6.8 10.2 Ref. Range 2020 08:45 2020 11:18 2020 17:52 03/18/2020 02:50 CALCIUM Latest Ref Range: 8.6 - 10.6 mg/dL 10.2 10.1 ALBUMIN (g/dL) Date Value 2020 4.4 Current Diet Order(s): (03/19) Pre-procedure Clear Liquid Diet; (03/18) Cardiac (2g Na, Low Fat/[id number] Calorie Diabetic Consistent Carb Diet Documented Food Allergies/Intolerance/Cultural Preferences: None Anthropometrics: Height: 5'5' (165.1 cm) Weight: 155.4 lbs (70.5 kg) Body mass index is 25.86 kg/m. IBW: 149.7 lbs (67.9 kg) at BMI 24.9 kg/m^2 %IBW: 103.8 % UBW: 155 lbs (70.2 kg) per patient EDW: 154.3 lbs (70 kg) per nephrology note on 10/26 Admit Weight: 175 lbs (79.4 kg) [72.5 kg bed weight] Wt Readings from Last 6 Encounters: 03/17/20 70.5 kg (155 lb 6.8 oz) Estimated Needs: based on EDW of 70 kg Calories: 1622 - 1893 kcals/day ([place] [address]. Jeor x 1.2 - 1.4 activity factor) Protein: 68 - 81 g protein/day (1 - 1.2 g protein/kg IBW) Fluids: ~2475 mL/day or per MD discretion (for hydration maintenance when euvolemic, adjust rec'd goal per pt acute needs) NUTRITION DIAGNOSIS: 1) Food and nutrition-related knowledge deficit related to limited interest in learning/applying information as evidenced by history of ESRD, patient POA verbalizes limited adherence to low sodium recommendations, and new medical diagnosis of CHF. NUTRITION INTERVENTIONS: 1) Recommend 1800 Calorie Diabetic Consistent Carbohydrate Diet Modifiers: 2.5g Na, 2.5g K, Low Phosphorus 2) Request recent phosphorus levels and titration of phosphorus binders if needed 3) Monitor BM and initiate/titrate bowel regimen as needed - Previous BM 03/16 per patient family - Pt/family report feeling constipated 4) Provided nutrition education on potassium in foods - Handout "Foods High and Low in Potassium" by [employer] 5) Provided nutrition education and counseling on reducing sodium intake Goal(s): 1) The patient will be able to consume 75% of all meals without any intolerances during this admission. 2) Prior to discharge the patient will be able to verbalize understanding of all renal diet education materials covered, including, but not limited to, low sodium, low potassium, low phosphorus and fluid restriction. MONITORING/EVALUATION: - RD to continue following with Nephrology team to review pt's progress, report nutrition related information, and to revise the recommended nutrition intervention(s) if necessary; please call with questions or concerns Anticipated Discharge Needs: Reinforcement of Renal diet instruction. Mirna Lofton Rv Mechanic Renal RDN Pager: [phone] Associated attestation - Juany Corado - 03/19/2020 4:00 PM CDTI have reviewed the nutrition care plan for Quirino Baldwindaphnedominic, and I agree with Mirna Lofton's note aswritten. I actively participated in the plan of care. Juany Corado, MS, RD, INSPECTOR OUTSIDE STEAM DISTRIBUTION, LD Nephrology Dietitian Pager: [phone], Andrew, MD - 03/19/2020 7:25 AM [facility] VASCULAR SURGERY PROGRESS NOTE Quirino Morales is a 75 year old male with HPI as above who has LUE forearm AVF most likely radiocephalic who has concerns for clotted fistula. On physical exam, his fistula has a thrill with no concerns for completing dialysis this morning. AVF duplex was obtained with results as seen below: Procedure Duplex scan of the left radial-cephalic arteriovenous fistula was performed. The radial/inflow artery was patent. The fistula was patent with no stenosis of thrombosis seen. The outflow vein was patent. AVF VELOCITIES Radial artery/inflow: Velocity: 185/101 cm/sec. Volume flow: 464 cc/min AVF anast: Velocity: 609/310 cm/sec. Volume flow: 422 cc/min Proximal AVF: Velocity: 352/161 cm/sec Volume flow: 966 cc/min Mid AVF: Velocity: 216/95 cm/sec. Volume flow: 683 cc/min Distal AVF: Velocity: 132/65 cm/sec. Volume flow: 626 cc/min AVF outflow: Patent. Interpretation Summary Patent left radial-cephalic arteriovenous fistula. Assessment/Plan: Patient with patent, functional fistula with no stenosis or thrombosis visualized. -- No indicated vascular surgical intervention -- Continue to dialyze via the LUE radiocephalic AVF -- Remainder of care per primary team -- Please call vascular surgery with questions/concerns Ernie Cox MD PGY-3, Vascular Surgery Pager: [phone] Honey Castelan RN - 03/18/2020 4:24 PM CDTCare Management Social Functional Assessment Patient Name: Quirino Morales Age: [age] year old Sex: male Previous admit date: N/A Current diagnosis and co-morbidities: Dyspnea Readmission Questions: Was patient discharged from any acute care hospital within the last 30 days: No Social Functional Assessment: Primary language spoken/preferred: Mexican Information given by: Child Name and phone number of person giving information: Adia Casillas (daughter in law) [phone] Patient's support system: Child Name and number of support system: Adia Casillas (daughter in law) [phone], Matteo Casillas (son), Primary English Adjunct Faculty: Self MPOA: Yes;Same as support system Living Arrangement: Home Address of living arrangement : [address] [place] [address] [place] [phone] Persons living in home: Same as support system;Other Names & numbers of persons living in home: [facility] Baseline functional status- ambulation: Independent Functional status-baseline personal care: Independent Baseline functional status- driving: Independent Baseline functional status- grocery shopping: Independent Functional status-baseline housekeeping: Independent Functional status-baseline meal prep: Independent Current functional status same as prior: Yes Do you have a PCP?: Yes Name of PCP: Dr. Christie Home Health Care Agency: No Provider Services: No DME Company: No Equipment: None Hemodialysis: Yes Dialysis Facility: [facility] [address] [place] [address]. [address] (P) [phone](F) [phone] Dialysis Schedule: MWF Dialysis Time: 0600 Mode of Transportation: Family Type of Access: AV Fistula Last Dialysis date at Dialysis Center: 03/15/20 Funding Resources: Medicare A & B;Medicaid HMO Prescription coverage plan: Medicare Part D Pharmacy where meds are filled: [facility] [address] [place] [address] () [phone] (F) [phone] Expected mode of discharge transportation: Same as support system Additional info required for discharge planning: Pending medical evaluation Recommended discharge plan: Home SFA Complete: Social Functional Assessment complete: Yes Alcohol Use Screening (AUDIT-C) How often do you have a drink containing alcohol?: Never SCORE: 0 Role of Care Management explained. Any issues or concerns with obtaining/affording your medications at home: No Are you or your support system able to picker feeder medications at discharge: Yes. Patient will have helpobtaining medications via their family. Honey "Octavio Gutierrez RN-BSN Brain Surgeon [facility] Care Management (not for patient use) Office: [phone] [email or web address] Hugo Moore MD - 03/18/2020 2:50 PM CDT Nephrology Progress Notes Patient seen and examined by nephrology due to ESRD, with pulmonary edema PHYSICAL EXAM Appearance: patient alert and in no acute distress on O2 supplements Nose: nares normal, septum midline, mucosa pink and moist with no drainage or sinus tenderness Neck: supple, no bruit, no lymphadenopathy or thyromegaly Cardiovascular: regular rate and rhythm, no murmur, S1, S2, no murmur, click, gallop or rubs Respiratory: clear to auscultation and percussion, bilaterally, Auscultation: crackles: bilaterally Abdomen: soft, non-tender, non-distended, no liver, spleen or abnormal masses palpated Extremities: extremities, peripheral pulses and reflexes normal, pedal edema Neurologic: normal gait and station, deep tendon reflexes symmetric, normal range, central nerves II - XII intact BP 139/68 | Pulse 74 | Temp 36.8 C (98.2 F) (Temporal Artery) | Resp 20 | Ht 1.651 m (5' 5") | Wt 70.5 kg (155 lb 6.8 oz) | SpO2 98% | BMI 25.86 kg/m Current Facility-Administered Medications Medication Dose Route Frequency Last Rate Last Dose carvediloL (COREG) tablet 25 mg 25 mg Oral BID MEALS sevelamer (RENVELA) tablet 1,600 mg 1,600 mg Oral TID MEALS 1,600 mg at 03/18/20 1245 amLODIPine (NORVASC) tablet 10 mg 10 mg Oral DAILY 10 mg at 03/18/20 0923 aspirin chewable tablet 81 mg 81 mg Oral DAILY 81 mg at 03/18/20 0923 atorvastatin (LIPITOR) tablet 80 mg 80 mg Oral QPM 80 mg at 03/17/20 1734 clopidogreL (PLAVIX) tablet 75 mg 75 mg Oral DAILY 75 mg at 03/18/20 0923 dextrose 50 % in water (D50W) injection 25 mL 25 mL Slow IV Push PRN furosemide (LASIX) injection 80 mg 80 mg Slow IV Push Q12H 80 mg at 03/18/20 0924 glucagon (GLUCAGEN DIAGNOSTIC KIT) injection 1 mg 1 mg Intramuscular PRN heparin (1,000 unit/mL, 10 mL vial) for Rebolusing 3,000 Units Slow IV Push FOR REBOLUSING heparin 25,000 Units/250 mL (Premixed Bag) in 0.45 % NS 12 Units/kg/hr IV Infusion TITRATE 7.03mL/hr at 03/18/20 1325 703 Units/hr at 03/18/20 1325 morpHINE injection 2 mg 2 mg Slow IV Push Q2HPRN nitroglycerin (NITROSTAT) sublingual tablet 0.4 mg 0.4 mg Sublingual Q5MIN PRN nitroglycerin 50 mg in D5W 250 mL infusion RTU 5-200 mcg/min IV Infusion TITRATE Stopped at 03/17/20 1600 ondansetron (ZOFRAN (PF)) injection 4 mg 4 mg Slow IV Push Q6HPRN Comments: Quirino Morales, 75 year old with pulmonary edema due to missing HD session, EDW 72 kg, currently is asymptomatic and had HD Sat Plan: # ESRD HD tomorrow target new EDW 70 kg with UF 3 L # Vascular AVF access Patient evaluated by vascular no intervention at time being, follow recs - Daily weight - Daily BMP and phos - Eogen 4000 Us with HD - Strict I&Os - Adjust meds doses d/w attending Flaco Crowell MD Nephrology Fellow, PGY5 Pager [phone] Associated attestation - Jaya Sweeney MD - 03/20/2020 3:37 PM CDTI have personally discussed, evaluated/examined this patient with the fellow for HD needs. I have reviewed fellows assessment and plan as outlined in the progress note and agree with overall approach to this patient. I personally participated in the decision-making process as relates to this patient's medical condition. Please refer to [place] progress note for details of the medical care provided. Jaya Sweeney MD, DIYA, Betty Koenig MD - 03/18/2020 6:08 AM CDT PGY- 2 Progress Team Progress Note Date of Service: 03/18/2020 06:09 Chief Complaint: shortness of breath 24-HOUR EVENTS: - Started on heparin gtt for NSTEMI - emergent HD session yesterday, 2L UF removed - Patient transitioned from BIPAP to nasal canula now at 3L/min - Clot noted by HD nurse at fistula access site, so had to cannulate higher. Vascular surgery consulted to assess access site prior to HD session today. SUBJECTIVE: Patient denies any further chest pain, sob improved after HD. Patient's MPOA wishes to convert patient's code status back to DNR after C tomorrow. PHYSICAL EXAM: Vitals: 03/18/20 0000 03/18/20 0200 03/18/20 0400 03/18/20 0405 BP: (!) 152/56 (!) 156/58 (!) 191/65 (!) 183/63 Pulse: 59 64 70 Resp: 17 15 Temp: 35.8 C (96.4 F) TempSrc: Tympanic SpO2: 95% 90% Weight: Height: Temp: [35.6 C (96.1 F)-36.8 C (98.2 F)] Heart Rate (monitor): [62-99] Pulse: [59-99] Resp: [13-31] BP: (146-205)/(56-119) MAP (mmHg): [83-114] Intake/Output Summary (Last 24 hours) at 03/18/2020 0609 Last data filed at 03/17/20201999 Gross per 24 hour Intake 129 ml Output 2200 ml Net -2071 ml Gen: NAD, AOx4 HEENT: EOMI, MMM P: CTAB - no wheezes, rhochi, stridor, crackles CV: RRR - no murmurs, clicks, gallops, rubs Abd: NT, Soft, Normoactive Bowel sounds MSK: 5/5 mm strength in bilateral upper and lower extremities, intact sensation to LT in bilateralupper and lower extremities. Ext: No peripheral edema Neuro: CN2-12 grossly intact, peripheral sensation intact LABS/IMAGING - reviewed, pertinent results as below: Troponin 0.463 --> 0.370 --> 0.284 ASSESSMENT/PLAN Quirino Morales is a 75 year old male with PMH as listed above, admitted to the hospital with NSTEMI, acute hypoxic respiratory failure and volume overload likely 2/2 CHF exacerbation: NSTEMI Acute Hypoxic Respiratory Failure - on BIPAP Volume overload - likely 2/2 acute CHF exacerbation Pulmonary edema ESRD - on HD (MWF) Comment: 75 y.o M presenting with 2 week history of worsening sob and fatigue, with acute respiratory decompensation today morning currently requiring BIPAP. EKG in ER with ST depression in inferior leads, troponins are trending up, concerning for NSTEMI. No respiratory distress noted on BIPAP. CXR shows pulmonary edema, NT-BNP increased to 25,200 concerning for CHF exacerbation. - Plan for LHC tomorrow. NPOpMN - ASA 81mg daily - Plavix 75mg daily - Lipitor 80mg daily - Coreg increased to 25mg bid - C/w heparin gtt - Trend troponin till peak - Amlodipine 10mg daily - Nitro gtt discontinued - Formal TTE ordered - Diuresis with Lasix 80mg q12h - Nephrology consulted. Plan for additional HD today. - Vascular surgery consulted to assess fistula site. - Renal diet. - Patient currently full code. However, would like to reverse code to DNR/DNI after LHC tomorrow. DM2 HLD Comment: not on and glycemic medications at home currently. - A1c - SSI Code status: Full code. Betty Allison MD Internal Medicine PGY2 [place] Team Pager #: [phone] END OF DAILY PROGRESS NOTE CURRENT MEDICATIONS - reviewed. Current Facility-Administered Medications Medication Dose Route Frequency Last Rate Last Dose amLODIPine (NORVASC) tablet 10 mg 10 mg Oral DAILY aspirin chewable tablet 81 mg 81 mg Oral DAILY atorvastatin (LIPITOR) tablet 80 mg 80 mg Oral QPM 80 mg at 03/17/20 173 carvediloL (COREG) tablet 12.5 mg 12.5 mg Oral BID MEALS 12.5 mg at 03/17/20 173 clopidogreL (PLAVIX) tablet 75 mg 75 mg Oral DAILY dextrose 50 % in water (D50W) injection 25 mL 25 mL Slow IV Push PRN furosemide (LASIX) injection 80 mg 80 mg Slow IV Push Q12H 80 mg at 03/17/207 glucagon (GLUCAGEN DIAGNOSTIC KIT) injection 1 mg 1 mg Intramuscular PRN heparin (1,000 unit/mL, 10 mL vial) for Rebolusing 3,000 Units Slow IV Push FOR REBOLUSING heparin 25,000 Units/250 mL (Premixed Bag) in 0.45 % NS 12 Units/kg/hr IV Infusion TITRATE 9.03mL/hr at 03/18/20 0411 903 Units/hr at 03/18/20 0411 morpHINE injection 2 mg 2 mg Slow IV Push Q2HPRN nitroglycerin (NITROSTAT) sublingual tablet 0.4 mg 0.4 mg Sublingual Q5MIN PRN nitroglycerin 50 mg in D5W 250 mL infusion RTU 5-200 mcg/min IV Infusion TITRATE Stopped at 03/17/20 1600 ondansetron (ZOFRAN (PF)) injection 4 mg 4 mg Slow IV Push Q6HPRN Associated attestation - Cristhian Ulloa MD - 03/19/2020 8:09 AM CDT Patient seen, examined and interviewed by myself. EMR and chart reviewed. I actively participated in the decision-making process. I read Dr. Keegan nino, agree with findings and recommendations. I spent more than 35 minutes. Cristhian Ulloa MD Gate Attendant Section of Cardiology, Advanced Heart Failure/Mechanical Circulatory Support/Transplant. Date of Service: 03/18/2020 documented in this encounter H&P Notes Yessy Salvador MD - 03/25/2020 8:20 PM CST SICU ADMIT NOTE Date of Service: 03/25/2020 Time: 8:21 PM Admitting Service: CTS Pre-operative/Admission Diagnosis: NSTEMI Operative Procedure: CABG x2 (MILLIGAN to LAD, SVG to OM) Operative Fluids: Crystalloid 2.6L, Cell saver 270 ml Plt 1unit and PRBC 1 unit EBL: 750 ml Operative Urine: 250ml Monitoring/Support: airway monitoring, inotropic support, ventilatory support, arrhythmia monitoring, hemodynamic monitoring, renal monitoring and sepsis/hematologic management HPI Jose Combs is a 75 year old with PMH of HTN, HLD, DM2, CAD, TIA (2018), ESRD on dyalisis, prostate ca s/p resection admitted on 03/17 with acute hypoxic respiratory failure, pulmonary edema, and fluid overload. LHC showed severe 3 vessel disease and he underwent a 2 vessel CABG. History Past Medical History: Diagnosis Date CKD (chronic kidney disease), stage V Diabetes mellitus ESRD (end stage renal disease) dialysis on MWF since 2017 - L AVF Essential hypertension Hypercholesterolemia Hypertension Prostate cancer October 2014 Prostate cancer s/p prostatectomy TIA (transient ischemic attack) Urethral stricture Urinary incontinence, mixed Past Surgical History: Procedure Laterality Date ANGIOPLASTY Left 03/15/2018 Surgeon: Compa Beltran; [facility] ANGIOPLASTY Left 06/28/2018 Surgeon: Compa Beltran; [facility] ANGIOPLASTY Left 12/12/2019 Surgeon: Carlos Wilkins MD; [facility] ARTERIOVENOUS FISTULA CREATION Left 01/14/2018 Surgeon: Compa Beltran; [facility] ARTERIOVENOUS FISTULA CREATION Left 2017 Left arm BACK SURGERY 2005 BLADDER NECK INCISION N/A 03/26/2015 Surgeon: Robert To; [facility] BLADDER NECK INCISION N/A 06/19/2015 Surgeon: Robert To; [facility] CAROTID ANGIOGRAPHY Bilateral 08/09/2018 Surgeon: Phi Perdue Jr., MD; [facility] ENDOVASCULAR UPPER EXTREMITY ANGIOPLASTY Left 04/04/2019 Surgeon: Ezequiel Cazares MD; [facility] EXTRACAPSULAR CATARACT EXTRACTION WITH INTRAOCULAR LENS IMPLANT Bilateral 2011 Both eyes FISTULOGRAM Left 03/15/2018 Surgeon: Compa Beltran; [facility] FISTULOGRAM Left 06/28/2018 Surgeon: Compa Beltran; [facility] FISTULOGRAM Left 10/04/2018 Surgeon: Shiv Hough MD; [facility] INTRAOPERATIVE FISTULOGRAM Left 04/04/2019 Surgeon: Ezequiel Cazares MD; [facility] PROSTATECTOMY RADICAL RETROPUBIC PROSTATECTOMY N/A 01/08/2015 Surgeon: Robert To; [facility] SPINE SURGERY 2001 Lumbar spine surgery TRANSURETHRAL INCISION OF BLADDER NECK 03/26/2015 VASCULAR STENTING Left 06/28/2018 Surgeon: Compa Beltran; [facility] Social History Socioeconomic History Marital status: Single Spouse name: Not on file Number of children: Not on file Years of education: Not on file Highest education level: Not on file Occupational History Not on file Social Needs Financial resource strain: Not on file Food insecurity Worry: Not on file Inability: Not on file Transportation needs Medical: Not on file Non-medical: Not on file Tobacco Use Smoking status: Former Smoker Packs/day: 1.00 Years: 15.00 Pack years: 15.00 Types: Cigarettes Quit date: 1989 Years since quittin.8 Smokeless tobacco: Never Used Substance and Sexual Activity Alcohol use: Not Currently Comment: quit 20 yrs ago Drug use: Never Sexual activity: Not on file Lifestyle Physical activity Days per week: Not on file Minutes per session: Not on file Stress: Not on file Relationships Social connections Talks on phone: Not on file Gets together: Not on file Attends alevism service: Not on file Active member of club or organization: Not on file Attends meetings of clubs or organizations: Not on file Relationship status: Not on file Intimate partner violence Fear of current or ex partner: Not on file Emotionally abused: Not on file Physically abused: Not on file Forced sexual activity: Not on file Other Topics Concern Not on file Social History Narrative Merged History Encounter - no children 4th grade education 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 independent ADLS, IADLs, drives Medications Current Medications: Current Facility-Administered Medications Medication Dose Route Frequency Last Rate Last Dose acetaminophen (TYLENOL) suppository 650 mg 650 mg Rectal Q6HPRN acetaminophen (TYLENOL) tablet 650 mg 650 mg Oral Q6HPRN acetaminophen-codeine (TYLENOL #3) 300-30 mg tablet 1 tablet 1 tablet Oral Q6HPRN [START ON 03/26/2020] aspirin chewable tablet 81 mg 81 mg Oral DAILY ceFAZolin (ANCEF) 1 g in NaCl 0.9% (NS) 1,000 mL OR irrigation PRN 1,000 mL at 03/25/20 1535 [START ON 03/26/2020] ceFAZolin (ANCEF) 1,000 mg in NaCl 0.9% (NS) 50 mL MINI-BAG 1,000 mg IV Piggyback Q24H D5W 0.9% NaCl (NS) IV infusion 1,000 mL 1,000 mL IV Infusion CONTINUOUS dextrose 50 % in water (D50W) injection 25 mL 25 mL Slow IV Push PRN dextrose 50 % in water (D50W) injection 25 mL 0.5 Syringe IV Push PRN [START ON 03/26/2020] docusate (COLACE) capsule 100 mg 100 mg Oral DAILY EPINEPHrine HCl in 0.9 % NaCL 4 mg/250 mL (16 mcg/mL) infusion RTU 0.01-0.7 mcg/kg/min IV Infusion TITRATE FENTanyl EXTRUSION OPERATOR (5 mcg/mL NS) 150 mcg Intravenous CONTINUOUS furosemide (LASIX) injection 20 mg 20 mg IV Push PRN glucagon (GLUCAGEN DIAGNOSTIC KIT) injection 1 mg 1 mg Intramuscular PRN [START ON 03/26/2020] heparin (porcine) injection 5,000 Units 5,000 Units Subcutaneous Q12H heparin 1,000 unit/mL 2,500 Units, papaverine 60 mg in NaCl 0.9% (NS) 100 mL OR irrigation PRN 100 mL at 03/25/20 1537 heparin 1,000 unit/mL 30,000 Units in NaCl 0.9% (NS) 1,000 mL OR irrigation PRN 1,000 mL at105/25/19 1537 heparin 1,000 unit/mL 5,000 Units, papaverine 30 mg in NaCl 0.9% (NS) 500 mL OR irrigation PRN 500 mL at 03/25/20 1536 insulin regular human (HUMULIN R) 100 Units in D5W 100 mL infusion 2 Units/hr IV Infusion TITRATE NaCl 0.9% (NS) bolus infusion 250 mL 250 mL IV Infusion PRN - SEE INSTRUCTIONS naloxone (NARCAN) injection 0.1 mg 0.1 mg Slow IV Push SEE-INSTRUCTIONS NORepinephrine 4 mg in 0.9% NaCl 250 mL infusion RTU 0.05-1.5 mcg/kg/min IV Infusion TITRATE propofoL IV infusion 5-50 mcg/kg/min IV Infusion TITRATE [START ON 03/26/2020] sennosides (SENOKOT) tablet 8.6 mg 8.6 mg Oral DAILY Sliding Scale Insulin - Aspart (NOVOLOG) + Fsbg Testing Subcutaneous Q4H atorvastatin (LIPITOR) tablet 80 mg 80 mg Oral QPM 80 mg at 03/24/20 1616 Beta Blockers: yes Pre-op: yes Nadia-op: yes Pre-op/Pre-admission Medications No current facility-administered medications on file prior to encounter. Current Outpatient Medications on File Prior to Encounter Medication Sig Dispense Refill cloNIDine 0.1 mg tablet Take 1 tablet by mouth 2 (two) times daily. 120 tablet 3 clotrimazole 1 % topical cream Apply to area(s) 2 (two) times daily. 1 Tube 3 amLODIPine 10 mg tablet Take 1 tablet by mouth daily. atorvastatin 20 mg tablet Take 1 tablet by mouth daily. carvediloL 12.5 mg tablet Take 1 tablet by mouth 2 (two) times daily. clopidogreL 75 mg tablet Take 1 tablet by mouth daily. furosemide 80 mg tablet Take 1 tablet by mouth daily. sevelamer 800 mg tablet 2 tablets 3 (three) times daily with meals. Allergies No Known Allergies Physical Exam BP 107/41 P 60 R 12 T 35.6 HT 22.6 Wt 65.7 SPO2 100 General: Intubated and sedated Lungs: clear to auscultation bilaterally Cardio: S1, S2 normal; no murmurs, rubs or gallops. Mediastinum and left pleural chest tube Abdomen: soft; non-tender; non-distended; hypoactive bowel sounds Extremities: no clubbing, cyanosis, or edema Neuro: Sedated Airway: intubated Monitors & Access Lines: PIV, 1 (20G). Right arm. Date inserted 03/21/2020 RIJ, type of line KVNG (7.5Fr) & 9Fr introducer . Date inserted 03/25/2020. RRA, type of line (20G). Date inserted 03/25/2020. Ventilator Mode: PRVCA/C Setting: FiO2 0.4, RATE12, VT 500, PEEP 5 PA Catheter: PAP: 28.13 , CO/CI: 4.5/2.5, and CVP: 7 Infusions: Dobutamine, Norepinephrine and Propofol Drains: Chest tube(s) - 2 Labs: CBC BMP PT/INR WBC x10^3 (/uL) Date Value 01/10/2014 7.2 WBC (10*3/L) Date Value 03/25/2020 7.50 NA Date Value 03/25/2020 132 mmol/L (L) 01/10/2014 140 MMOL/L No results found for: PT RBC x10^6 (/uL) Date Value 01/10/2014 4.78 RBC (10*6/L) Date Value 03/25/2020 2.52 (L) K Date Value 03/25/2020 5.0 mmol/L 01/10/2014 4.1 MMOL/L INR (no units) Date Value 2020 1.0 PLT x10^3 (/uL) Date Value 01/10/2014 220 PLT (10*3/L) Date Value 03/25/2020 111 (L) CALCIUM Date Value 03/25/2020 7.4 mg/dL (L) 01/10/2014 9.6 MG/DL 01/10/2014 9.6 MG/DL HGB Date Value 03/25/2020 7.8 g/dL (L) 01/10/2014 13.7 G/DL CL Date Value 03/25/2020 106 mmol/L 01/10/2014 104 MMOL/L aPTT HCT (%) Date Value 03/25/2020 22.6 (L) 01/10/2014 40.1 BUN Date Value 03/25/2020 29 mg/dL (H) 01/10/2014 28 MG/DL (H) APTT Patient (Seconds) Date Value 03/19/2020 64 (H) CREATININE Date Value 03/25/2020 3.33 mg/dL (H) 01/10/2014 1.73 MG/DL (H) ABG FIO2: 0.4 PH (no units) Date Value 03/25/2020 7.39 PCO2 (mmHg) Date Value 03/25/2020 27 (L) PO2 (mmHg) Date Value 03/25/2020 91 %O2HB (%) Date Value 03/25/2020 95.6 NA (mmol/L) Date Value 03/25/2020 131 (L) K+ (mmol/L) Date Value 03/25/2020 4.9 AC CA IONZ (mg/dL) Date Value 03/25/2020 4.40 (L) Admission Intra-op Echocardiogram: improvement in anterior wall motion, LVEF up to about 45% with inotropic support, no new effusion present, aorta intact. Assessment & Plan Jose Combs is a 75 year old /White male S/P 2 vessel CABG. Airway: intubated. Wean sedation to extubate. Neurology: Propofol infusion off. Start Fentanyl EXTRUSION OPERATOR for pain control. Cardiovascular: Patient with no intrinsic rhythm in the OR, dependent on pacemaker. Low dose of dobutamine was initiated in the OR. Norepinephrine infusion was required to keep SYS >90/100 mmHg and MAP> 60 mmHg. Wean dobutamine and norepinephrine as tolerated. Pulmonary: O2 per protocol. Obtain ventilatory mechanics and CPAP trial when patient is following commands. Gastrointestinal: NPO Renal/Electrolytes: ESRD dialysis dependent. Patient still makes small amount of urine. Plan for dialysis tomorrow. Endocrinology: Sliding scale insulin Infectious Disease: Cefazolin for 24H Hematology: Follow up chest tube output and H&H. S/p 1 PRBC and 1 platelet in the OR. DVT Prophylaxis: SCD's Predictors for Ventilation Ventilation greater than 48 hours: no Ventilated prior to surgery: no Excess fluid administration (crystalloid greater than 5 liters, colloid greater than 2 liters, bloodproducts greater than 5 units): no Smoker: no ETOH > 2 drinks/day (within 6 months): no Dyspnea: at rest Current pneumonia: no Poor functional health status prior to current illness: yes History of severe chronic obstructive pulmonary disease:no IV pressor/inotropes: yes Cardiomyopathy: yes Ejection fraction less than 35:no Previous cardiac surgery: no Permanent pacemaker: no Myocardial infarction in past 6 months: no Congestive heart failure (with in 30 days): yes PCI (previous procedure): no History of angina (with in 30 days): no Hypertension requiring medications: yes Ascites (within 30 days): no Esophageal varices (within 6 months): no Revasc/Amp for PVD: no Rest pain/gangrene: no Acute renal failure: no Currently requiring or on dialysis: yes Impaired sensorium (within 48 hours): no Coma: no Hemiplegia/hemiparesis: no TIA's (history): yes CVA/residual neurologic deficit (history): no CVA/no neurologic deficit (history): no Tumor involving IRRIGATION EQUIPMENT REMOVER: No Paraplegia/paraparesis: no Quadraplegia/quadraparesis: no Disseminated cancer: no Open wound with or without infection: no Steroid use for chronic condition: no > 10% loss of body weight (last 6 months): no Bleeding disorders: no Transfusions > 4 RBC units (within 72 hours): no Chemotherapy (within 30 days): no Radiotherapy (within 90 days): no Systemic sepsis (within 48 hours): no : no Prior operation (within 30 days): no Yessy Mckenzie MD. TY CHIEF SHERIFF Associated attestation - aCr Noyola MD - 03/26/2020 2:54 PM CSTI spent 30 minute(s) on date 03/25/20 personally caring for this critically ill patient on the unit/floor. The patient was critically ill due to cardiac failure, respiratory failure, and post-op need for ventilatory support and pressor management. I performed the following services: discussed the patient's care with other medical staff, reviewed imaging studies and reviewed test results, and interpretation of physiologic parameters. See Dr. Leona Mckenzie's note for details. S/P CABG On norepinephrine and mechanical ventilation post-op Wean pressors/ventilator as tolerated SICU care Car Noyola, MDdocumented in this encounter Procedure Notes Cornel Whitehead MD - 03/25/2020 6:55 PM CSTProcedure(s): SD CABG, ARTERIAL, SINGLE; SD CABG, ARTERY-VEIN, SINGLE; ENDOSCOPY W/VIDEO-ASST VEIN HARVEST,CABGOPERATIVE NOTE DATE OF SURGERY: 03/25/2020 SURGEON: Cornel Simmons MD VOICE INTERCEPT TECHNICIAN(S): Cheyenne Motta PA-C, Ernie Cox MD ANESTHESIOLOGIST: Grace Chowdhury ANESTHETIC: general PREOPERATIVE DIAGNOSIS: 1. ESRD 2. NSTEMI 3. CAD 4. Prostate ca s/p resection 5. HTN POSTOPERATIVE DIAGNOSIS: 1. As above 2. S/p CABG x2 (MILLIGAN to LAD, SVG to OM) CARDIOPULMONARY BYPASS INFORMATION: Total Bypass Time: 128 minutes Crossclamp Time: 53 minutes PERFORMED OPERATION: 1. CABG x2 (freegraft MILLIGAN to LAD, SVG to OM) COMPLICATIONS: none INDICATION: This is a 75 year old year-old male with ESRD. Left AVF and progressive SOB. He was found to have multivessel CAD on LHC ( Ostial LAD 70%, mid LAD 70%, RCA 100% AIRPORT LOCATION MANAGER, Lcx mid 85%). The risksand benefits of the procedure were discussed and he consented to proceed. FINDINGS: No available target for PDL or PDA, target vessels less than 1mm, excellent circ target, distal LAD target. Free Milligan with good flow. DESCRIPTION OF PROCEDURE IN DETAIL: After informed consent was obtained, the patient was brought to the operating room, appropriately identified as part of the time-out procedure, and subsequently anesthetized and intubated. Perioperative antibiotics were given and a fuller catheter was placed with assi stance from urology (please see their note for details of the procedure). Appropriate invasive and non-invasive monitoring devices were placed as indicated. Subsequently the patient was prepped and draped in the usual fashion. We began with a sternotomy. Simultaneously the greater saphenous vein was harvested from the left lower extremity using an closed technique. After division of the sternum, the MILLIGAN was identified and mobilized along its entire length, and after complete mobilization the patient was anticoagulated and the mammary divided distally and proximally with both end being prepared for grafting. The pericardium was opened widely and the heart was then elevated in a pericardial cradle. Purse-string sutures were placed on the distal ascending aorta and right atrial appendage. The ACT was confirmed to be adequate, and the aorta and right atrium were cannulated and the cannulaconnected to the cardiopulmonary bypass circuit. An additional mattress stitch was placed on the proximal ascending aorta and an aortic root vent/cardioplegia line inserted. After once again confirming adequacy of anti-coagulation we went on bypass. The root was vented and the ascending aorta cross-clamped. Warm cardioplegia was delivered into the root until ECG silence noted, then converted to cold. A total of 1500 cc's was delivered. Cardioplegia was delivered in intermittent doses during the remainder of the case. The RCA was inspected and attempted to find the PDA or PDL. Both vessels were identified and were too small for grafting. Therefore we aborted grafting the right sided vessels Next we identified the circumflex and opened on its anterior surface. The vein graft was then anastomosed to the artery in an end-to-side fashion using a running suture of 7-0 proline. Cardioplegia was then delivered down the vein graft. We then proceeded with preparing the proximal MILLIGAN and the aorta. An aortotomy was made with a hole punch and the proximal MILLIGAN was anastomosed using 6-0 running proline. We tested the anastomosis withgood distal flow. Next we proceeded to identify the distal LAD. It was opened on its anterior surface and was large incaliber with minimal disease. The distal MILLIGAN was anastomosed to the LAD with 7-0 running proline. An aortotomy was created on the left side of the ascending aorta, enlarged with a 4mm punch, and theproximal vein graft anastomosis created with a 5-0 proline. A warm shot of blood was then delivered antegrade into the root and after delivery, the root vented and the crossclamp removed. We then began resuscitation of the heart. A ventricular pacing wire was placed on the diaphragmatic surface of the right ventricle and brought out through the left upper quadrant. The patient required pacing to come off bypass. A chest tube was inserted into the mediastinum and into the left chest and secured to the chest wall. After an adequate period of rewarming and resuscitation we slowly came off bypass. After coming off, the root vent was removed and the insertion site closed with a previously placed mattress stitch. Protamine was started and while infusing, the venous cannula was removed and the insertion site oversewn with the previously placed pursestring suture. Remaining pump blood was returned via the aortic cannula and after infusion was completed, the aortic cannula was removed and its insertion site closed with the previously placed purse-string suture. Sternal wires were placed, and after confirming adequacy of hemostasis in the surgical field, the sternum was closed. The fascial and deep tissue planes were closed, and the skin closed with a subcuticular suture. Sterile dressings were then placed on the wound and the patient was transferred to the ICU. Sponge, needle and instrument counts were correct at the end of the procedure. The skilled assistance of Ms. Motta was necessary for the successful endoscopic harvesting of thesaphenous vein and assistant spa director for the critical portion of the procedure as no appropriately trained resident was available. DISPOSITION: The patient arrived in the ICU asleep, intubated, and hemodynamically stable. He will be admitted for routine post-operative care. CASE TYPE: Clean DRAINS: Mediastinum / left pleural space SPECIMEN(S): none ESTIMATE BLOOD LOSS: autotransfused. Cornel Whitehead MD atel, Jg Hurley MD - 03/25/2020 2:31 PM CSTProcedure(s): ECHO HEART,TRANSESOPHAGEAL,COMPLETEPre-Procedure Diagnose(s): Coronary artery disease of [place]andreau artery of flandreau heart with stable angina pectorisPost-Procedure Diagnose(s): S/P CABG (coronary artery bypass graft)Intraoperative Transesophageal Echocardiography Exam 03/25/2020 2:31 PM Diagnosis: Coronary artery disease, chronic systolic heart failure Procedure: On-pump CABG x2 After the induction of anesthesia, NAYA probe inserted and removed atraumatically. Preop NAYA Aortic valve: Trace central AI - Annulus diameter: 2.3 cm - LVOT: 2.2 cm - ST junction diameter: 3.4 cm Mitral valve: Trace MR - Annulus diameter: 2.3 x 2.6 cm Tricuspid valve: No TR - Annulus diameter: 3.2 cm - Hepatic venous velocities: No systolic flow reversal Pulmonic valve: Trace central PI LV: Mild global LV dysfunction with moderate inferior wall hypokinesis, LVEF 40%, moderate LVH - LV end diastolic diameter: 5.2 cm - LV end systolic diameter: 4.3 cm - LV end diastolic wall thickness: 1.4 cm - Diastolic function: impaired relaxation, Grade 1. - Peak transmitral E wave velocity: 0.5 m/s - Peak transmitral A wave velocity: 0.6 m/s - E/A ratio: 0.83 - E wave deceleration time: 269 ms - A dur: 176 ms - Peak lateral mitral annular E' velocity: 0.04 m/s - E/E' ratio: 11.4 - Pulmonary vein flow: S<D - S velocity: 0.29 m/s - D velocity: 0.51 m/s - A velocity: 0.18 m/s - Ar duration: 97 ms RV: Normal function LA: Normal atrial size. No left atrial appendage thrombus. Velocity in the left atrial appendage is 0.47 m/s RA: Normal Intraatrial septum: No PFO or ASD on CFD Ascending aorta: Diameter: 3.3 cm, extensive intimal thickening Descending aorta: Diffuse grade 2 with focal grade 3 atheromatous disease Interpretation: Reduced LVEF with moderate inferior wall hypokinesis, LVH, normal RV function, grade1 diastolic dysfunction, small pericardial effusion Post-op NAYA: S/P on-pump CABG x2, improvement in anterior wall motion, LVEF up to about 45% with inotropic support, no new effusions present, aorta intact. Jg Chowdhury MD 03/25/2020 2:31 PM TY CHIEF SHERIFF Keegan Valverde MD - 03/25/2020 2:27 PM CSTProcedure(s): [place] CYSTOSCOPY,DIL URETHRAL STRICTUREPre-Procedure Diagnose(s): Bladder neck contracturePost-Procedure Diagnose(s): Bladder neck contractureFull Operative Note Date Of Operation: 03/25/2020 Surgeons Name: Abram Front Maker Lockstitch Surgeons Name: NONE Pre Operative Diagnosis: Bladder neck contracture s/p open RRP 2014 Post Operative Diagnosis: Same Operation Performed: Cystoscopy with serial dilation of bladder neck contracture, fuller catheter placement Any Complications Encountered: None Estimated Blood Loss: 0cc Patient's Condition: Good Findings: pinpoint bladder neck 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 Full op note: Pt already intubated/sedated in advance of CABG procedure. Already had received antibiotics. Nurses failed to get 16Fr catheter in. On chart review, patient known to have hx of recurrent bladder neck contractures after his open prostatectomy in [address] To, requiring previous TUBNI. Per team patient reported minimal urination issues. A 17Fr flexible scope inserted and advanced to level of anastomoses where pinpoint circumfrential bladder neck contracture visualized. Small partial mucosal defect in middle presume to be true opening and cannulated gently with a sensor wire which advanced easily. Then performed serial dilations using Leobardo followers from 10Fr to 20Fr with mild resistance and clear urine noted each time. Then re-inserted scope and able to advance into bladder which appeared partially trabeculated but no signs of other lesions or tumors. Open contracture visualizedon way out with circumfrential scarring but fully open. Then placed 16Fr [place] tip catheter over wire and advanced to bladder with no resistance. Balloon inflated to 10cc and procedure ended. EBL from procedure < 5cc. No complications. Recommendations: Ok to remove fuller if urine clear. Pt ESRD and may have decreased urine production naturally. Expect him to have worsened incontinence after this procedure, which he may have had after previous procedures in 2016. Ok to f/u with in ~ 3 months post discharge for PVR check and symptom monitoring. TY CHIEF SHERIFF William Church MD - 03/19/2020 10:52 AM CDTProcedure(s): LEFT HEART CATH; CORONARY ANGIOGRAPHYPre-Procedure Diagnose(s): NSTEMI (non-ST elevated myocardial infarction); Essential hypertension; Mixed hyperlipidemia; ESRD (end stage renal disease); Type 2 diabetes mellitus with chronic kidney disease on chronic dialysis, without long-term current use of insulin; TIA (transient ischemic attack) Left Heart Cath/Coronary Angiography Date of Service: 03/19/2020 10:55 AM Indication/Diagnosis: 75 y M with PMH of ESRD, DM-2, HTN, HLD, TIA who p/w SOB and volume overload requiring BiPAP. Trop of 0.4. Fellow: Dr Diallo Time out completed: yes Aseptic technique: Chlorprep Local Anesthesia: 1% lidocaine without epinephrine Sedation: fentanyl 25 mcg, Versed 1 mg Access site: right femoral artery Closure Method: Mynx program management analyst TR Band Complications: none Findings: Coronary dominance: right Left main: Distal LM 20% LAD: Ostial LAD 60-70% discrete stenosis Mid LAD 60-70% D1: Small sized, mild athero D2: Mild athero RI: Small sized, mild athero LCX: Prox LCx 70% Mid LCx 85% OM1: 50% diffuse stenosis RCA: Prox RCA 100% AIRPORT LOCATION MANAGER Distal RCA supplied by LAD septal collaterals PDA and PLB: Supplied by LAD septal collaterals LVEDP: 21 mmHg Subclavian Angiogram: Patent left subclavian and CAITLYN Right External Iliac angiogram: EIA normal ALLIANCE MANAGER mild athero SFA 70% prox stenosis Profunda proximally patent Procedure Details: 5 Fr RFA access, 5 Fr JL4 to LM, 5 Fr JR4 to LV and RCA, then to L subclavian. Impression: 1. Severe 3 vessel disease 1. 60-70% ostial LAD and 60-70% mid LAD 2. 70% prox LCx and 85% mid LCx 3. Prox RCA 100% AIRPORT LOCATION MANAGER 2. Mildly elevated left sided filling pressures 3. Normal left subclavian 4. Stenosis in right SFA Plan: 1. Aggressive medical therapy 2. Continue aspirin, stop plavix 3. Consult CV surgery (I reviewed films with Dr Palmer) 4. If he is not a surgical candidate, we can discuss approach for PCI (he will possibly need LM/LAD/LCx bifurcation with MCS since right system is also dependent on LAD collaterals). 5. Findings and plan discussed with patient, primary team and CV surgery. William Church MD 03/19/2020 10:55 AM documented in this encounter Consult Notes Hugo Arias MD - 03/27/2020 1:14 PM CSTAssociated Order(s): CONSULT NEPHROLOGYSee ESRD consult, patient is been following by Nephrology prior to CABG TY CHIEF SHERIFF Tono Montilla PT - 03/27/2020 11:05 AM CSTAssociated Order(s): CONSULT ADULT PHYSICAL THERAPY Patient agreeable to working with physical therapy. Patient met Up in chair with nurse Tello. Vital signs after: HR 70, RR25, SpO2 97, BP 89/50 PHYSICAL THERAPY EVALUATION Consult received, chart reviewed and evaluation complete this date. Patient is referred to PT for evaluation and treatment. Patient is a 75 year old male who presents to hospital for Dyspnea S/P CABG. Discharge Recommendations: Therapy Needs and Potential: Patient would benefit from continued physical therapy services to address: decline in bed mobility decline in transfers decline in gait and/or balance decreased strength decreased range of motion decreased endurance decreased coordination decreased motor planning Patient demonstrates good potential to improve and meet therapy goals with further physical therapy services. Patient appears motivated to improve their functional mobility and return to their previous levelof function. Patient demonstrates ability to tolerate atleast 30-60 minutes of physical therapy with active participation. Challenges to Home Transition: increased risk of falls decreased caregiver availability decreased safety awareness environmental barriers Equipment recommendations: rolling walker Rolling Walker or Rollator: I certify that Jose Combs is under my care and that I had a [id number] encounter with this patient on: 03/27/2020. The primary reason for the durable medical equipment: for progressive mobilization, safe transfers and ambulation. I am ordering and certify that, based on my findings, the following is medically necessary durable medical equipment: Rolling walker . Patient has a mobility limitation that significantly impairs his/her ability to participate in one or more mobility-related activities of daily living (MRADL) in the home and the patient is able to safely use the walker and the functional mobility deficit can be sufficiently resolved with use of a walker. Height: Ht Readings from Last 1 Encounters: 03/19/20 5' 6" (1.676 m) Weight: Wt Readings from Last 1 Encounters: 03/27/20 149 lb 12.8 oz (67.9 kg) Duration of need: 99 months. Current Functional Status and/or Treatment:Functional mobility training, Transfer training, Gait training, Patient/Family/Caregiver education, Therapeutic exercise and Functional Motor Training Bed Mobility: N/T. Patient was up in the chair with nurse Tello. Transfers: Sit to stand: Moderate assist using Rolling Walker, taking more than usual time to complete task due to surgical pain in the chest and fatigue. Stand to sit: Moderate assist using Rolling Walker Stand pivot transfer: Moderate assist Static/dynamic standing balance: Fair Verbal cueing provided for correct hand placement and correct use of AD, rolling walker. Ambulation: Assisted patient with ambulation as follows: 10 feet using Rolling Walker and Moderate assist Patient presenting with Step-to gait pattern. Gait is slow, short step and wide base of support. Therapeutic exercise: patient educated in Deep breathing, Energy conservation, Fall prevention, General strengthening, Gross motor coordination of LEs, Joint protection, Positioning, Relaxation/breathing techniques and Safety awareness., instructed patient in the following: ankle pumps, toe flexion/extension, patient/caregiver instructed to perform HEP 3 times per day, 10 repetitions., patient/caregiver verbalizes understanding of instructions. After session, patient Up in chair. Call button provided. Fall precautions and progressive mobilization were reinforced. Nurse Tello was informed of the patient's current level of function. PLAN OF CARE: At least 3 times per week, once or twice a day (while in hospital) per patient's tolerance and medical needs. See below for complete details. Admit Date: 2020 Hospital Diagnosis:Dyspnea PT Diagnosis: Difficulty walking, Weakness, Malaise/fatigue, Vertigo/dizziness, Pain, Abnormality ofgait and balance and Joint stiffness Weight Bearing Precaution: NA General Precautions: PPE used:Gloves and Surgical mask, General, Fall, Sternal, Cardiac, Logroll,Fuller catheter, Chest tube to drain to wall continuous suction, Drain. Bracing/Cast present or required:N/A PMH: Past Medical History: Diagnosis Date CKD (chronic kidney disease), stage V Diabetes mellitus ESRD (end stage renal disease) dialysis on MWF since 2017 - L AVF Essential hypertension Hypercholesterolemia Hypertension Prostate cancer October 2014 Prostate cancer s/p prostatectomy S/P CABG x 2 (free MILLIGAN-LAD, 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;Dr Whitehead 03/25/2020 TIA (transient ischemic attack) Urethral stricture Urinary incontinence, mixed PSH: Past Surgical History: Procedure Laterality Date ANGIOPLASTY Left 03/15/2018 Surgeon: Compa Beltran; [facility] ANGIOPLASTY Left 06/28/2018 Surgeon: Compa Beltran; [facility] ANGIOPLASTY Left 12/12/2019 Surgeon: Carlos Wilkins MD; [facility] ARTERIOVENOUS FISTULA CREATION Left 01/14/2018 Surgeon: Compa Beltran; [facility] ARTERIOVENOUS FISTULA CREATION Left 2018 Left arm BACK SURGERY 2005 BLADDER NECK INCISION N/A 03/26/2015 Surgeon: Robert To; [facility] BLADDER NECK INCISION N/A 06/19/2015 Surgeon: Robert To; [facility] CAROTID ANGIOGRAPHY Bilateral 08/09/2018 Surgeon: Phi Perdue Jr., MD; [facility] CORONARY ARTERY BYPASS GRAFT N/A 03/25/2020 Surgeon: Cornel Whitehead MD; [facility] CYSTOSCOPY N/A 03/25/2020 Surgeon: Keegan Valverde MD; [facility] ENDOSCOPIC VEIN HARVEST (SHX) Left 03/25/2020 Surgeon: Cornel Whitehead MD; [facility] ENDOVASCULAR UPPER EXTREMITY ANGIOPLASTY Left 04/04/2019 Surgeon: Ezequiel Cazares MD; [facility] EXTRACAPSULAR CATARACT EXTRACTION WITH INTRAOCULAR LENS IMPLANT Bilateral 2012 Both eyes FISTULOGRAM Left 03/15/2018 Surgeon: Compa Beltran; [facility] FISTULOGRAM Left 06/28/2018 Surgeon: Compa Beltran; [facility] FISTULOGRAM Left 10/04/2018 Surgeon: Shiv Hough MD; [facility] INTRAOPERATIVE FISTULOGRAM Left 04/04/2019 Surgeon: Ezequiel Cazares MD; [facility] PROSTATECTOMY RADICAL RETROPUBIC PROSTATECTOMY N/A 01/08/2015 Surgeon: Robert To; [facility] SPINE SURGERY 2001 Lumbar spine surgery TRANSURETHRAL INCISION OF BLADDER NECK 03/26/2015 VASCULAR STENTING Left 06/28/2018 Surgeon: Compa Beltran; Location: [facility] Prior Living Situation: lives with their family and lives with their spouse, [address] house, 1 flight of stairs. DME: No device Prior level of Mobility: community ambulation, house hold ambulation Subjective: Patient was seen in the room and in agreement fr evalaution Patient/Family Goals: Patient wants to go to rehab Patient/Family verbalizes understanding of condition: Yes PAIN: -Pain Description: aching and variable -Pain Location: sternum -Pain rating before treatment: 6, After treatment: 6 -Pain Management: Nursing Notified and Repositioning Provided COMMUNICATION Primary Language: Mozambican and some Mexican. Able to Verbalize needs: Yes Vision:glasses Hearing:good; no issues reported ORIENTATION/COGNITION: Oriented to: person, place, date/time and situation Awake: Yes Alert: Yes Dizzy: Yes mild to moderate. Follows Commands: Yes 1-Step Yes Multi-Step Yes Inconsistent: No NEUROLOGICAL Light Touch: within functional limits bilateral LE Heel to arana: unable to complete task on the right LE due to pain Tone: intact BALANCE: Sitting: Static: Fair Dynamic: Fair Standing: Static: Fair Dynamic: Fair RANGE OF MOTION: within functional limits bilateral LE STRENGTH: 4-/5 (G-), bilateral LE grossly graded. ENDURANCE: Poor+, Nasal canula SKIN INTEGRITY: defer to nursing notes PROBLEM LIST: Decline in bed mobility, Decline in gait, Decline in transfers, Difficulty with stairs, Decreased strength, Decreased endurance, Decreased balance, ROM deficits, Pain, Decreased Coordination and Decreased Motor Planning ASSESSMENT: Patient is a 75 year old male seen secondary to the above listed diagnosis. Patient would benefit from continued PT to address the above listed deficits to maximize independence and safety with functional mobility. Rehabilitation Potential: guarded Goals: The following goals are to maximize independence and safety with functional mobility to eventually return to prior living situation and prior functional status. Upon discharge, patient and/or family will demonstrate the followin. Supine-sit: Modified independent 2. sit-stand: Modified independent 3. Modified independent with ambulation, Feet: 150 using least assistive device. 4. Modified independent up/down 1 flight stairs using no rails. 5. Demonstrate or verbalize understanding of home exercise program in order to continue with their rehab on their own. Treatment Plan: Gait training, Gait training on stairs, Therapeutic exercise, Transfer training, Balance training, Bed mobility training, Equipment needs assessment, Safety education, patient/caregivereducation, Pain management and Functional Motor Training PATIENT EDUCATION: Patient provided with preferred teaching of verbal information on role of PT, plan of care. Shows readiness to learn. Verbal instruction teaching provided. Individual is able to readand verbalizes understanding of teaching provided. Total Time Tx Codes in Minutes: 24 min Total Treatment Time in Minutes: 29 min Tono Montilla PT, DPT Pager: [phone] Lesia Cintron OT - 03/22/2020 8:38 AM CDTAssociated Order(s): CONSULT ADULT OCCUPATIONAL THERAPY OT GENERAL EVALUATION Consult received via [employer], EMR reviewed and evaluation completed 03/22/20. Patient referred to occupational therapy for evaluation and treatment secondary to dyspnea. Patient agreeable to participate in occupational therapy. Discharge Recommendations: Therapy Needs and Potential:Not applicable as no further skilled acute care OT needs at this time. Challenges to Home Transition:- Increased risk of falls Equipment Recommendations:None PLAN OF CARE: Discharge from OT services Precautions: Weight bearing status: NA General: PPE Utilized: Gloves and Surgical mask Bracing: N/A Current Occupational Performance and/or Treatment: Feeding: Independent UB Dressing: Modified independent LB Dressing: Modified independent Toilet Transfer: Modified independent Toileting Hygiene: Modified independent Functional Mobility: Modified independent without assistive device Patient/caregiver educated on: Role of OT and Safety awareness Patient left sitting upright in bedside chair with call byrnes in reach. Please, see full evaluation below for more detail. OT EVALUATION: 75 year old male Admit date: 2020 Date of onset: 2020 Admit Diagnosis: Dyspnea OT Diagnosis: Impaired BADL independence and Impaired IADL independence PMH: Past Medical History: Diagnosis Date CKD (chronic kidney disease), stage V Diabetes mellitus ESRD (end stage renal disease) dialysis on MWF since 2017 - L AVF Essential hypertension Hypercholesterolemia Hypertension Prostate cancer October 2014 Prostate cancer s/p prostatectomy TIA (transient ischemic attack) Urethral stricture Urinary incontinence, mixed PSH: Past Surgical History: Procedure Laterality Date ANGIOPLASTY Left 03/15/2018 Surgeon: Compa Beltran; [facility] ANGIOPLASTY Left 06/28/2018 Surgeon: Compa Beltran; [facility] ANGIOPLASTY Left 12/12/2019 Surgeon: Carlos Wilkins MD; [facility] ARTERIOVENOUS FISTULA CREATION Left 01/14/2018 Surgeon: Compa Beltran; [facility] ARTERIOVENOUS FISTULA CREATION Left 2018 Left arm BACK SURGERY 2005 BLADDER NECK INCISION N/A 03/26/2015 Surgeon: Robert To; [facility] BLADDER NECK INCISION N/A 06/19/2015 Surgeon: Robret To; [facility] CAROTID ANGIOGRAPHY Bilateral 08/09/2018 Surgeon: Phi Perdue Jr., MD; [facility] ENDOVASCULAR UPPER EXTREMITY ANGIOPLASTY Left 04/04/2019 Surgeon: Ezequiel Cazares MD; [facility] EXTRACAPSULAR CATARACT EXTRACTION WITH INTRAOCULAR LENS IMPLANT Bilateral 2011 Both eyes FISTULOGRAM Left 03/15/2018 Surgeon: Compa Beltran; [facility] FISTULOGRAM Left 06/28/2018 Surgeon: Compa Beltran; [facility] FISTULOGRAM Left 10/04/2018 Surgeon: Shiv Hough MD; [facility] INTRAOPERATIVE FISTULOGRAM Left 04/04/2019 Surgeon: Ezequiel Cazares MD; [facility] PROSTATECTOMY RADICAL RETROPUBIC PROSTATECTOMY N/A 01/08/2015 Surgeon: Robert To; [facility] SPINE SURGERY 2001 Lumbar spine surgery TRANSURETHRAL INCISION OF BLADDER NECK 03/26/2015 VASCULAR STENTING Left 06/28/2018 Surgeon: Compa Beltran; [facility] PAIN: Before assessment: 0/10 After assessment: 010 Location: NA Pain Management: NA OCCUPATIONAL ROLES/HOME ENVIRONMENT: Home environment: Single story home with family. 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, IF UE Strength: BLAKE UE WFL Hand dominance: right Dexterity/Coordination: intact Endurance - Sitting: Good Standing: Good Sitting Balance - Static: Good Dynamic: Good Standing: Balance - Static Fair+ Dynamic: Fair+ Dizziness: No Skin Integrity: No breakdown noted Sensation: intact Oral Motor: WFL Communication: Able to verbalize needs Yes Other: Mozambican speaking - lisa mack, corrective therapy aide teacher available for translation Vision: WFL Yes Other: N/A Hearing: good; no issues reported COGNITION: Orientation: NT Follows Commands: 1-step Yes Multi-step Yes Inconsistencies No Safety Awareness/Judgment: Good PROBLEM LIST: Decreased independence with ADL and Decreased strength/endurance for functional activity REHAB POTENTIAL/PROGNOSIS: good PATIENT/FAMILY GOALS: none stated TREATMENT/INTERVENTION PLAN: Discharge from OT PATIENT-FAMILY TEACHING Patient provided with preferred teaching of verbal information on Role of OT and Safety awareness. Shows readiness to learn. Verbal instruction teaching provided. Individual is able to read and verbalizes understanding of teaching provided. Lesia Ackerman OTR, MOT Pager [phone] License # [id number] Total Timed Treatment Codes: 0 Min Total Treatment Time: 9 Min Patient Complexity Level Moderate - An occupational therapy evaluation of moderate complexity was completed using the above tests and measures. The following information was obtained: An occupational profile and medical and therapy history, including an expanded review of medical and/or therapy records and additional review of physical, cognitive, or psychosocial history related to current functional performance, Various standardized and non-standardized assessments were used to identify at least 3-5 performance deficits related to physical, cognitive, or psychosocial skills that result in activity limitations and/or participation restrictions and Clinical decision making of moderate analytic complexity, which includes an analysis of the occupational profile, analysis of data from detailed assessment(s), and consideration of several treatment options. Patient may present with comorbidities thataffect occupational performance. Minimal to moderate modification of tasks or assistance (e.g., physical or verbal) with assessment(s) is necessary to enable patient to complete evaluation component. Tono Cross PT - 03/22/2020 8:05 AM CDT Associated Order(s): CONSULT ADULT PHYSICAL THERAPY Patient agreeable to working with physical therapy. Patient met Semi reclined in bed. PHYSICAL THERAPY EVALUATION Consult received, chart reviewed and evaluation complete this date. Patient is referred to PT for evaluation and treatment. Patient is a 75 year old male who presents to hospital for Dyspnea Acute Hypoxic Respiratory Failure - on BIPAP- Resolved Volume overload - likely 2/2 acute CHF exacerbation - Resolved. Pulmonary edema. Resolved. CABG on Wednesday. Discharge Recommendations: Therapy Needs and Potential: Patient without any skilled PT needs at this time. Challenges to Home Transition: increased risk of falls decreased caregiver availability decreased safety awareness environmental barriers Equipment recommendations: no device Current Functional Status and/or Treatment:Functional mobility training, Transfer training, Gait training, Patient/Family/Caregiver education, Therapeutic exercise and Functional Motor Training Bed Mobility: Rolling: Independent Scooting in supine: Independent Supine-sit: Independent Sitting balance Excellent . Transfers: Sit to stand: Independent using no device Stand to sit: Independent using no device Stand pivot transfer: Independent Static/dynamic standing balance: Good Ambulation: Assisted patient with ambulation as follows: 50 feet using no device and Independent Patient presenting with Swing-Through gait pattern. . Gait is slow, steady and no loss of balance. However. He required 2x rest standing to complete task. Therapeutic exercise: patient educated in Deep breathing, Energy conservation, Fall prevention, General strengthening, Joint protection, Positioning, Relaxation/breathing techniques and Safety awareness., instructed patient in the following: ankle pumps, toe flexion/extension, seated marching, patient/caregiver instructed to perform HEP 3 times per day, 10 repetitions., patient/caregiver verbalizes understanding of instructions. After session, patient Up in chair. Call button provided. Fall precautions and progressive PACED mobilization were reinforced. Nurse Tomeka was informed of the patient's current level of function. PLAN OF CARE: PT signs off. See below for complete details. Admit Date: 2020 Hospital Diagnosis:Dyspnea PT Diagnosis: Weakness, Malaise/fatigue and Joint stiffness Weight Bearing Precaution: NA General Precautions: PPE used:Gloves and Surgical mask, General, Fall,IV line Bracing/Cast present or required:N/A PMH: Past Medical History: Diagnosis Date CKD (chronic kidney disease), stage V Diabetes mellitus ESRD (end stage renal disease) dialysis on MWF since 2017 - L AVF Essential hypertension Hypercholesterolemia Hypertension Prostate cancer October 2014 Prostate cancer s/p prostatectomy TIA (transient ischemic attack) Urethral stricture Urinary incontinence, mixed PSH: Past Surgical History: Procedure Laterality Date ANGIOPLASTY Left 03/15/2018 Surgeon: Compa Beltran; [facility] ANGIOPLASTY Left 06/28/2018 Surgeon: Compa Beltran; [facility] ANGIOPLASTY Left 12/12/2019 Surgeon: Carlos Wilkins MD; [facility] ARTERIOVENOUS FISTULA CREATION Left 01/14/2018 Surgeon: Compa Beltran; [facility] ARTERIOVENOUS FISTULA CREATION Left 2018 Left arm BACK SURGERY 2004 BLADDER NECK INCISION N/A 03/26/2015 Surgeon: Robert To; [facility] BLADDER NECK INCISION N/A 06/19/2015 Surgeon: Robert To; [facility] CAROTID ANGIOGRAPHY Bilateral 08/09/2018 Surgeon: Phi Perdue Jr., MD; [facility] ENDOVASCULAR UPPER EXTREMITY ANGIOPLASTY Left 04/04/2019 Surgeon: Ezequiel Cazares MD; [facility] EXTRACAPSULAR CATARACT EXTRACTION WITH INTRAOCULAR LENS IMPLANT Bilateral 2012 Both eyes FISTULOGRAM Left 03/15/2018 Surgeon: Compa Beltran; [facility] FISTULOGRAM Left 06/28/2018 Surgeon: Compa Beltran; [facility] FISTULOGRAM Left 10/04/2018 Surgeon: Shiv Hough MD; [facility] INTRAOPERATIVE FISTULOGRAM Left 04/04/2019 Surgeon: Ezequiel Cazares MD; [facility] PROSTATECTOMY RADICAL RETROPUBIC PROSTATECTOMY N/A 01/08/2015 Surgeon: Robert To; [facility] SPINE SURGERY 2001 Lumbar spine surgery TRANSURETHRAL INCISION OF BLADDER NECK 03/26/2015 VASCULAR STENTING Left 06/28/2018 Surgeon: Compa Beltran; [facility] Prior Living Situation: lives with their family, house and 2 ary house, 1 flight DME: No device Prior level of Mobility: community ambulation, house hold ambulation Subjective: Patient was seen in the room and agreed to do evaluation. Patient/Family Goals: Patient wants to get well. Patient/Family verbalizes understanding of condition: Yes PAIN: denies pain COMMUNICATION Primary Language: Mozambican mainly Able to Verbalize needs: Yes Vision:glasses Hearing:good; no issues reported ORIENTATION/COGNITION: Oriented to: person, place, date/time and situation Awake: Yes Alert: Yes Dizzy: No Follows Commands: Yes 1-Step Yes Multi-Step Yes Inconsistent: No NEUROLOGICAL Light Touch: within functional limits bilateral LE Heel to arana: within functional limits bilateral LE Tone: intact BALANCE: Sitting: Static: Good Dynamic: Good Standing: Static: Fair+ Dynamic: Fair RANGE OF MOTION: within functional limits bilateral LE STRENGTH: 4/5 (Good), bilateral LE ENDURANCE: Fair, Room air SKIN INTEGRITY: intact PROBLEM LIST: Decline in bed mobility, Decline in gait, Decline in transfers, Difficulty with stairs, Decreased strength, Decreased endurance, Decreased balance and Decreased Motor Planning ASSESSMENT: Patient is a 75 year old male seen secondary to the above listed diagnosis. No further inpatient PT needs identified at this time. Rehabilitation Potential: guarded Goals: The following goals are to maximize independence and safety with functional mobility to eventually return to prior living situation and prior functional status. Defer as no PT needs. Treatment Plan: Evaluation only and Discharge from PT PATIENT EDUCATION: Patient provided with preferred teaching of verbal information on role of PT, plan of care. Shows readiness to learn. Verbal instruction teaching provided. Individual is able to readand verbalizes understanding of teaching provided. Total Time Tx Codes in Minutes: 10 min Total Treatment Time in Minutes: 31 min Tono Montilla PT, DPT Pager: [phone] eidy Castro FNP - 03/21/2020 11:15 AM CDTAssociated Order(s): CONSULT CARDIOVASCULAR SURGERYDuplicate request. Please see written consult note done on 03/19 Leidy Cherry FNP - 03/19/2020 11:18 AM CDT Cardiothoracic Surgery Consult Date of Service: 03/19/2020 Requesting Physician: Dr. Church IDENTIFYING DATA Patient name: Quirino Morales : 1945 Primary care physician: PATIENT DOES NOT HAVE A PCP HISTORY OF PRESENT ILLNESS Quirino Morales is a 75 year old male presented to ED on 03/17 for worsening SOB. He complained of fatigue and SOB that started approximately 1 week ago. EMS was called due to AMS and increased work of breathing. On arrival EMS reports O2 saturation 55%. On arrival to ED patient was placed on BiPAP with improved oxygen saturations to 90s. Patient has HTN, HLD, ESRD since 2017, dialyzes MWF via L arm AVF, DMII (has not required medications since starting dialysis per daughter in law, A1C 5.7) and TIA (2018). Patient underwent prostatectomy 2014 due to prostate cancer (no chemo/radiation). Patientwas admitted to CCU on 03/17, emergent HD session done Wednesday for volume removal with net UF 2L. Post dialysis patient was able to transition to nasal cannula. HD nurse noted clot post removal of cannula and vascular consulted to evaluate AVF. Duplex done and no revision or surgery indicated. [id number] at bedside for interview and Mozambican translation. Patient reports improvement in breathing since admission. Lives with son, [id number] and his . Prior to ~ 1 week ago patient/daughter report ability to perform all ADLs without assistance. CXR on admission showed pulmonary edema, troponin 0.075. Peaked to 0.463 with downward trend to 0.284 yesterday. LHC done today and showed 3V CAD. Medication reconciliation completed with patient/daughter and home meds are listed as below.PCP is Dr. Jillian Christie here in [place]. PMH, surgical, social and family hx updated this encounter. CURRENT MEDICATIONS & ALLERGIES History of Steroid Therapy: no Allergies: No Known Allergies Medications prior to Admission: Plavix 75 mg daily Sevelamer 1600 mg TIDAC Amlodipine 10 mg daily Furosemide 80 mg daily ASA 81 mg daily Carvedilol 12.5 mg BID Sodium Bicarb TIDAC Clonidine 0.1 mg QHS Atorvastatin 20 mg QHS Colace 100 mg daily Melatonin 5 mg QHS Hospital Medications: Current Facility-Administered Medications Medication Dose Route Frequency Last Rate Last Dose cefTRIAXone (ROCEPHIN) 1,000 mg in NaCl 0.9% (NS) 50 mL MINI-BAG 1,000 mg IV Piggyback Q24H ABX 1,000 mg at 03/19/20 0754 carvediloL (COREG) tablet 25 mg 25 mg Oral BID MEALS 25 mg at 03/19/20 0754 Saline Bubble Study 6 mL Injection SEE-INSTRUCTIONS 6 mL at 03/18/20 1430 Saline Bubble Study 6 mL Injection SEE-INSTRUCTIONS 6 mL at 03/18/20 1430 sevelamer (RENVELA) tablet 1,600 mg 1,600 mg Oral TID MEALS 1,600 mg at 03/18/20 1724 amLODIPine (NORVASC) tablet 10 mg 10 mg Oral DAILY 10 mg at 03/19/20 0754 aspirin chewable tablet 81 mg 81 mg Oral DAILY 81 mg at 03/19/20 0754 atorvastatin (LIPITOR) tablet 80 mg 80 mg Oral QPM 80 mg at 03/18/20 1724 clopidogreL (PLAVIX) tablet 75 mg 75 mg Oral DAILY 75 mg at 03/19/20 0754 dextrose 50 % in water (D50W) injection 25 mL 25 mL Slow IV Push PRN furosemide (LASIX) injection 80 mg 80 mg Slow IV Push Q12H Stopped at 03/19/20 0800 glucagon (GLUCAGEN DIAGNOSTIC KIT) injection 1 mg 1 mg Intramuscular PRN heparin (1,000 unit/mL, 10 mL vial) for Rebolusing 3,000 Units Slow IV Push FOR REBOLUSING 3,000 Units at 03/18/20 2138 heparin 25,000 Units/250 mL (Premixed Bag) in 0.45 % NS 12 Units/kg/hr IV Infusion TITRATE Stopped at 03/19/20 0930 morpHINE injection 2 mg 2 mg Slow IV Push Q2HPRN nitroglycerin (NITROSTAT) sublingual tablet 0.4 mg 0.4 mg Sublingual Q5MIN PRN nitroglycerin 50 mg in D5W 250 mL infusion RTU 5-200 mcg/min IV Infusion TITRATE Stopped at 03/17/20 1600 ondansetron (ZOFRAN (PF)) injection 4 mg 4 mg Slow IV Push Q6HPRN REVIEW OF SYSTEMS Reviewed previous ROS from history and physical dated 2020 and there are no changes. HISTORIES PAST MEDICAL HISTORY Past Medical History: Diagnosis Date ESRD (end stage renal disease) dialysis on MWF since 2018 - L AVF Essential hypertension Prostate cancer s/p prostatectomy TIA (transient ischemic attack) PAST SURGICAL HISTORY Past Surgical History: Procedure Laterality Date ARTERIOVENOUS FISTULA CREATION Left 2018 Left arm BACK SURGERY 2005 PROSTATECTOMY SOCIAL HISTORY Social History Tobacco Use Smoking status: Former Smoker Packs/day: 1.00 Types: Cigarettes Quit date: 1989 Years since quittin. Smokeless tobacco: Never Used Substance Use Topics Alcohol use: Not Currently FAMILY HISTORY Family History Problem Relation Age of Onset Coronary Heart Disease Father PHYSICAL EXAMINATION BP (!) 151/55 | Pulse 62 | Temp 36.2 C (97.2 F) (Axillary) | Resp 20 | Ht 1.651 m (5' 5") |Wt 70.5 kg (155 lb 6.8 oz) | SpO2 100% | BMI 25.86 kg/m General: Patient is alert and oriented x4 and in no acute distress. Head: Head is normocephalic, atraumatic. Eyes: conjunctivae and sclerae normal Respiratory: Respiratory effort: breathing comfortably Auscultations of lungs:clear to auscultation Cardiovascular: Chest - auscultation heart: The heart rate is normal with regular rhythm, and without murmurs,rubs, or gallops. Extremities (lower): edema - none. Veins - no varicosities bilaterally. GastrointestinalI: Abdomen- palpation: soft, non tender Skin Inspection - phlebitis, pustules: negative Neurologic: Orientation: awake and alert Mood and Affect: appropriate MEDICAL DECISION MAKING COAGULATION PROTIME PATIENT (Seconds) Date Value 2020 11.0 INR (no units) Date Value 2020 1.0 APTT Patient (Seconds) Date Value 03/19/2020 53 (H) CBC WBC (10*3/L) Date Value 03/18/2020 7.67 RBC (10*6/L) Date Value 03/18/2020 3.87 (L) PLT (10*3/L) Date Value 03/18/2020 188 HGB (g/dL) Date Value 03/18/2020 12.0 (L) HCT (%) Date Value 03/18/2020 34.9 (L) CMP NA (mmol/L) Date Value 03/18/2020 137 K (mmol/L) Date Value 03/18/2020 4.2 CALCIUM (mg/dL) Date Value 03/18/2020 10.1 CL (mmol/L) Date Value 03/18/2020 98 BUN (mg/dL) Date Value 03/18/2020 36 (H) CREATININE (mg/dL) Date Value 03/18/2020 5.45 (H) GLUCOSE (mg/dL) Date Value 03/18/2020 94 CO2 TOTAL (mmol/L) Date Value 03/18/2020 27 ALBUMIN (g/dL) Date Value 2020 4.4 T PROTEIN (g/dL) Date Value 2020 7.4 TOTAL BILI (mg/dL) Date Value 2020 0.9 BILI UNCON (mg/dL) Date Value 2020 0.6 BILI CONJ (mg/dL) Date Value 2020 0.0 ALTv (U/L) Date Value 2020 15 AST(SGOT) (U/L) Date Value 2020 47 (H) ALK PHOS (U/L) Date Value 2020 62 HGB A1C (%) Date Value 2020 5.7 PROTEIN (no units) Date Value 03/18/2020 500 mg/dL (A) PH (no units) Date Value 03/18/2020 6.0 GLU U QUAL (no units) Date Value 03/18/2020 150 mg/dL (A) KETONES (no units) Date Value 03/18/2020 Negative BILIRUBIN (no units) Date Value 03/18/2020 Negative LEUK MADONNA (no units) Date Value 03/18/2020 500/uL (A) NITRITE (no units) Date Value 03/18/2020 Negative SP GRAVITY (no units) Date Value 03/18/2020 1.007 HGB A1C (%) Date Value 2020 5.7 ALBUMIN (g/dL) Date Value 2020 4.4 ALTv (U/L) Date Value 2020 15 AST(SGOT) (U/L) Date Value 2020 47 (H) Ref. Range 2020 11:22 MRSA Screen by PCR, Nares Latest Ref Range: Negative Negative MSSA Screen by PCR, Nares Latest Ref Range: Negative Positive (A) Ref. Range 2020 08:45 NT-proBNP Latest Ref Range: <=450 pg/mL 25,200 (H) Ref. Range 2020 11:18 2020 17:52 03/18/2020 02:50 03/18/2020 13:22 03/18/2020 20:03 TROPONIN I Latest Ref Range: <=0.034 ng/mL 0.075 (H) 0.402 (H) 0.463 (H) 0.370 (H) 0.284 (H) I have reviewed the patient's labs. Significant abnormals are highlighted in red. RADIOLOGY - all imaging reports below have been reviewed CT Scan: not tested Chest X-ray: reviewed study on 2020 FINDINGS: The patient is rotated. Lungs/Pleura: Prominent central vascular congestion with increase bilateral interstitial marking. There is no pleural effusion or pneumothorax. Heart/Mediastinum: The cardiomediastinal silhouette is enlarged. No acute osseous structure abnormality. IMPRESSION Mild pulmonary edema with cardiomegaly. 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 [facility] 03/19/2020 Findings: Coronary dominance: right Left main: Distal LM 20% LAD: Ostial LAD 60-70% discrete stenosis Mid LAD 60-70% D1: Small sized, mild athero D2: Mild athero RI: Small sized, mild athero LCX: Prox LCx 70% Mid LCx 85% OM1: 50% diffuse stenosis RCA: Prox RCA 100% AIRPORT LOCATION MANAGER PDA and PLB: Supplied by LAD septal collaterals LVEDP: 21 mmHg Subclavian Angiogram: Patent left subclavian and CAITLYN Right External Iliac angiogram: EIA normal ALLIANCE MANAGER mild athero SFA 70% prox stenosis Profunda proximally patent Procedure Details: 5 Fr RFA access, 5 Fr JL4 to LM, 5 Fr JR4 to LV and RCA, then to L subclavian. Impression: 1. Severe 3 vessel disease 1. 60-70% ostial LAD and 60-70% mid LAD 2. 70% prox LCx and 85% mid LCx 3. Prox RCA 100% AIRPORT LOCATION MANAGER 2. Mildly elevated left sided filling pressures 3. Normal left subclavian 4. Stenosis in right SFA Plan: 1. Aggressive medical therapy 2. Continue aspirin, stop plavix 3. Consult CV surgery (I reviewed films with Dr Palmer) 4. If he is not a surgical candidate, we can discuss approach for PCI (he will possibly need LM/LAD/LCx bifurcation with MCS since right system is also dependent on LAD collaterals). Findings and plan discussed with patient, primary team and CV surgery. Echocardiograms: reviewed study TTE 03/18/2020 Left Ventricle The left ventricle is normal in size. Mild Eccentric Hypertrophy. The overall left ventricular function appears low normal to mildly reduced. Ejection Fraction = 50-55%. Diastolic dysfunction. Left ventricular filling presure is elevated. Mild golbal hypokinesis with more marked hypokinesis of the inferobasal segments. Right Ventricle The right ventricle is normal size. There is moderate right ventricular hypertrophy. The right ventricular size and function are normal. Atria The left atrium is mildly dilated. Right atrial size is normal. Injection of agitated saline contrast documented no interatrial shunt. Atrial septum is aneurysmal. Mitral Valve The mitral valve is normal. There is mild mitral regurgitation. Tricuspid Valve The tricuspid valve is normal. There is trace tricuspid regurgitation. Estimated RA pressure is 5-10mmHg. Insufficient Tricuspid regurgitation jet to estimate RVSP. Aortic Valve The aortic valve is mildly thickened and calcified. The aortic valve opens well. Pulmonic Valve The pulmonic valve is normal. Great Vessels The aortic root is normal size. Pericardium/Pleural There is no pericardial effusion. The pericardium appears normal. Interpretation Summary A two-dimensional transthoracic echocardiogram with M-mode and Doppler was performed. The study was technically adequate. Contrast injection was performed. Ejection Fraction = 50-55%.Mild golbal LV hypokinesis with more marked hypokinesis of the inferobasal segments STS Risk Assessment calculated this encounter Procedure: Urgent CABG with Plavix given within 1 day of surgery Procedure: Elective CABG with Plavix stopped 5 days prior to surgery DIAGNOSIS / ASSESSMENT Coronary Artery Disease MANAGEMENT OPTIONS & PLAN - Medical optimization per primary team - If patient is a surgical candidate will need carotid duplex, UA with aseptic technique, urine culture and repeat CXR - Will present to Dr. Whitehead for further recommendations Leidy Cherry NP-C Cardiothoracic Surgery Associated attestation - Cornel Whitehead MD - 03/19/2020 7:04 PM CDTSeen and examined with [place] Cherry NP. I agree with her note as written. Discussed options with patientand his family at bedside, both PCI and CABG. They are leaning towards CABG. Discussed at length that he is at slightly higher risk for surgery and I prefer to wait for plavix washout with planned surgery for next week Wednesday. They would like to discuss as a family but patient is interested in surgical revascularization and is very motivated. Will follow up tomorrow after the family discussion. Thank you for this consult. MD Sunny Corea Alexis, MD - 03/18/2020 8:15 AM CDTAssociated Order(s): CONSULT VASCULAR SURGERY VASCULAR SURGERY - CONSULT NOTE Date of Admission: 2020 Date of Service: 03/18/2020 Reason for Consult: Quirino Morales is a 75 year old male with PMH of HTN, HLD, ESRD (MWF - since 2017, fistula LA), DM2, TIA (2018), prostate cancer (s/p prostatectomy) who is tristanian-speaking only, who presents to the ER with complaints of worsening shortness of breath. Per HD nurse today clot pulledfrom venous access and had to cannulate a little higher using 16g so BFR was 300, lower then usual 400. Patient is scheduled for 3 hours of HD tomorrow prior to LHC which is essential to remove fluid. Please assess access prior to HD in AM before LHC, thank you. HPI Quirino Morales is a 75 year old male with pmh of HTN, HLD, ESRD (MWF - since 2018, LUE AVF done at OSH), DM2, TIA (2019), prostate cancer (s/p prostatectomy) who is tristanian-speaking only, who presentedto the ED yesterday with complaints of worsening shortness of breath and was found to have NSTEMI with LHC scheduled for today. Vascular is consulted for concerns of a clotted AVF as he will need to bedialyzed previous to the procedure for volume overload. This morning his L forearm fistula most likely radiocephalic had a thrill with no swelling, no pain,weakness, numbness or tingling. Yesterday per HD nurse there was clot pulled from venous access and had to cannulate a little higher using 16g and BFR was 300, lower then usual 400. He has not had dialysis yet today. ROS: Constitutional: Negative except per HPI HEENT: Negative except per HPI CVS: Negative except per HPI Resp: Negative except per HPI GI: Negative except per HPI : Negative except per HPI Neuro: Negative except per HPI PALAK: Negative except per HPI Skin: Negative except per HPI Endo: Negative except per HPI Heme: Negative except per HPI PMH HTN, HLD, ESRD (MWF - since 2018, fistula LA), DM2, TIA (2019), prostate cancer (s/p prostatectomy) PAST SURGICAL HISTORY S/p fistula creation 2018 S/p prostatectomy MEDICATIONS No current facility-administered medications on file prior to encounter. No current outpatient medications on file prior to encounter. SOCIAL HISTORY Quirino Morales FAMILY HISTORY family history is not on file. ALLERGIES No Known Allergies PHYSICAL EXAM Temp: [35 C (95 F)-36.8 C (98.2 F)] Heart Rate (monitor): [62-99] Pulse: [59-94] Resp: [13-31] BP: (146-199)/(56-119) MAP (mmHg): [83-114] Constitutional: AOx3, NAD Facial Droop: No Ears, Nose, Mouth, Throat: moist mucous membranes Neck: supple Respiratory: normal effort, symmetrical chest rise Abdomen: soft, NT/ND, no masses palpated Extremities: LUE forearm avf with no swelling, redness, +thrill, no clubbing, cyanosis, or edema Neurologic: No focal deficits Psychiatric: appropriate insight, affect, and judgment Labs: Recent Labs 03/17/20 0845 03/18/20 0250 WBC 13.18* 7.67 HGB 12.5 12.0* HCT 37.9* 34.9* PLT 225 188 Recent Labs 03/17/20 0845 03/18/20 0250 NA 139 137 K 5.4* 4.2 CL 103 98 TCO2 20* 27 BUN 65* 36* CREAT 7.76* 5.45* GLU 200* 94 CA 10.2 10.1 Recent Labs 03/17/20 0845 03/17/20 1752 03/18/20 0250 PTPAT 11.0 -- -- PTINR 1.0 -- -- APTTPAT 27 96* 54* Imaging: Chest 1 View Result Date: 2020 Mild pulmonary edema with cardiomegaly. Preliminary Report Dictated by Resident: Cristhian Arnett I, Irving Webber MD., have reviewed this study and agree with the above report. Vascular Labs: No recent vascular studies. Assessment/Plan: Quirino Morales is a 75 year old male with HPI as above who has LUE forearm AVF most likely radiocephalic who has concerns for clotted fistula. On physical exam, his fistula has a thrill with no concerns for completing dialysis this morning. To evaluate further, we ordered an AVF duplex although it canbe completed after HD and the [facility]. - No acute vascular intervention - Follow-up AVF duplex - Remainder of care per primary - Please contact vascular with any questions Patient discussed with Dr. Carvajal on 03/18/2020. Devin Correa MD PGY-1, Vascular Surgery 03/18/2020 Vascular Pager: [phone] TY [employer]IE[employer]ER[employer] Associated attestation - Zoe Carvajal MD - 03/28/2020 2:22 PM CSTI discussed the patient with Dr. Correa on 03/18/2020. I agree with the note as detailed by Dr. Correa. I actively participated in the decision-making process regarding the assessment and plan of care. Please see the resident's note for additional details. Zoe Carvajal MD, [facility] Vascular Surgery Marin Carrillo Ady Hutton MD - 2020 2:42 PM CDTAssociated Order(s): CONSULT NEPHROLOGY NEPHROLOGY CONSULT NOTE 2020 14:43 Reason For consult: Quirino Morales is a 75 year old male with new onset CHF, fluid overload, ESRD ondialysis. May need emergent dialysis. Chief Complaint: SOB HPI:Quirino Morales is a 75 year old male with pmh of HTN, HLD, ESRD (MWF - since 2018, fistula LA), DM2, TIA (2019), prostate cancer (s/p prostatectomy) who is tristanian-speaking only, who presents to the ER with complaints of worsening shortness of breath. Patient states that he started feeling increasingly tired and SOB/GONZALEZ during the past 2 weeks. Today AM, daughter noticed that patient was very diaphoretic, sob and seemed confused so EMS was called and patient was brought to the ER. Per EMS, patient's O2 sat on RA was 55%, improved on NS to 88% in ER, but patient still had increased work of breathing so placed on BIPAP with O2 sat improved to 90s. He denies any chest pain or palpitations. He was recently started on clonidine by PCP about 2 weeks ago. His last HD session was on Wednesday. Reports compliance with HD sessions and medications. Patient continues to make urine. In the ER, BP 205/92, HR93, RR 26 afebrile. EKG shows RBBB and ST depressions in inferior leads. Troponin initially negativebut then positive to 0.075. Started on nitro gtt. CXR shows mild pulmonary edema with cardiomegaly. Nephrology was consulted for dialysis support. Patient was stated on Nitro drip and lasix 80 mg IV was given by Cardiology. BP got better, patient did not make any urine. Fuller tried by ER nurse but not able to insert and consulted Urology. Per [id number] at bed side, patient has been feeling SOB for nearly 2 weeks, regularly goes to HD MWF. Last HD on Wednesday, JACOBE AVF. He makes urine 2-3 times a day. Denies use of Oxygen at home. GONZALEZ over 2-3 weeks but denies Orthopnea or PND until this am when he wakes up with SOB, diaphoretic, confused, but denied chest pain or palpitations. No past medical history on file. No past surgical history on file. Social History Tobacco Use Smoking status: Not on file Substance Use Topics Alcohol use: Not on file Drug use: Not on file No family history on file. No Known Allergies ROS Constitutional: SOB on BiPAP. Cardiovascular: denies chest pain Respiratory: SOB Gastrointestinal: negative. Genitourinary: negative. Musculoskeletal: negative. Skin: negative. Neuro: negative. Medications: Current Facility-Administered Medications Medication Dose Route Frequency Last Rate Last Dose [START ON 03/18/2020] amLODIPine (NORVASC) tablet 10 mg 10 mg Oral DAILY [START ON 03/18/2020] aspirin chewable tablet 81 mg 81 mg Oral DAILY aspirin tablet 325 mg 325 mg Oral ONCE Stopped at 03/17/20 0916 atorvastatin (LIPITOR) tablet 80 mg 80 mg Oral QPM carvediloL (COREG) tablet 12.5 mg 12.5 mg Oral BID MEALS [START ON 03/18/2020] clopidogreL (PLAVIX) tablet 75 mg 75 mg Oral DAILY dextrose 50 % in water (D50W) injection 25 mL 25 mL Slow IV Push PRN furosemide (LASIX) injection 80 mg 80 mg Slow IV Push Q12H glucagon (GLUCAGEN DIAGNOSTIC KIT) injection 1 mg 1 mg Intramuscular PRN heparin (1,000 unit/mL, 10 mL vial) for Rebolusing 3,000 Units Slow IV Push FOR REBOLUSING heparin 25,000 Units/250 mL (Premixed Bag) in 0.45 % NS 12 Units/kg/hr IV Infusion TITRATE 9.53mL/hr at 03/17/20 1247 12 Units/kg/hr at 03/17/20 1247 morpHINE injection 2 mg 2 mg Slow IV Push Q2HPRN nitroglycerin (NITROL) 2 % ointment 1 Inch 1 Inch Transdermal (Apply To Skin) ONCE Stopped at1 0846 nitroglycerin (NITROSTAT) sublingual tablet 0.4 mg 0.4 mg Sublingual Q5MIN PRN nitroglycerin 50 mg in D5W 250 mL infusion RTU 5-200 mcg/min IV Infusion TITRATE 7.5 mL/hr at 03/17/20 1149 25 mcg/min at 03/17/20 1149 ondansetron (ZOFRAN (PF)) injection 4 mg 4 mg Slow IV Push Q6HPRN No current outpatient medications on file. Physical Exam BP: (146-205)/(65-93) Temp: [36 C (96.8 F)] Temp source: Skin (03/17 918) Pulse: [62-99] Resp: [16-30] SpO2: [80 %-100 %] Height: -- Weight: [79.4 kg (175 lb)] BMI (calculated): [0] Wt Readings from Last 3 Encounters: 03/17/20 79.4 kg (175 lb) General: mild acute distress on BiPAP ENT: PEERL, EOMI Cardiovascular: tachycardic, Heart regular, rate, rhythm, murmur at pulmonary area Respiratory: B/l crackles at bases, respiratory distress GI: abd soft, non-tender, non-distended, +BS Skin: intact and warm, dry Neuro: alert, oriented, able to follow commands MS/Extremities: No Edema Dialysis Access: LUE AVF No intake or output data in the 24 hours ending 03/17/20 1443 Labs: Recent Labs 03/17/20 0845 NA 139 K 5.4* CL 103 TCO2 20* AGAP 16 BUN 65* CREAT 7.76* CA 10.2 MCV 93.3 Recent Labs 03/17/20 0845 03/17/20 1118 ALB 4.8 4.4 No results for input(s): MG in the last 72 hours. No results found for: VANCOT No results for input(s): PHOS in the last 72 hours. No results for input(s): CK in the last 72 hours. Recent Labs 03/17/20 0844 ACPH 7.12* ACPCO2 66* ACHCO3 21* ACO2HB 90.1* Recent Labs 03/17/20 0845 WBC 13.18* HGB 12.5 PLT 225 No results found for: PTHINTACT No results found for: FERRITIN No results found for: FESAT No results found for: UPROTEIN No results found for: UBLOOD No results found for: ULEUKEST No results found for: UNITRITE Chest 1 View Result Date: 2020 Mild pulmonary edema with cardiomegaly. Assessment and Plan: Quirino Morales is a 75 year old male here with SOB with decompensated Heart failure with h/o ESRD onHD MWF # ESRD MWF: -Last HD: Wednesday03/15/20 -Plan to do HD for 3 hrs today for volume removal, reassess tomorrow and do another session for 3 hrs -Continue lasix to stimulate residual renal function -Check BMP, Phosphorous on HD days -Strict I&O's, Daily weights, avoid nephrotoxins/contrast studies # Hemodynamics: -HTN Urgency/Emergency: Resulting in flash pulmonary edema, elevated troponins -BP elevated and started on Nitro drip by Cards -will do HD which will also help for BP, wean off of Drip once started on HD --resumed Home BP meds amlodipine and coreg # NSTEMI: -continue ASA, Plavix, BB, management per Cards # Acute decompensation of Heart failure: -Continue HD, lasix, heart cath per Cards to r/o OK with troponin elevation -check Echocardiogram # Electrolytes: -Hyperkalemia: Potassium at 5.4, 2 K bath # Volume status: -Hypervolemia, 1-2 L UF removal per HD # Acute Respiratory acidosis: on BiPAP # Anemia of chronic disease: -Hemoglobin: Target >10, Hb at 12.5, Patient is seen, examined and discussed with attending assembler aircraft power plant Dr. Sweeney Thank you for the Consult Marin Carrillo MD Nephrology and Hypertension Fellow- [id number] Pager: [phone] Associated attestation - Jaya Sweeney MD - 03/20/2020 3:38 PM CDTI have personally discussed, evaluated/examined this patient with the fellow on ESRD. I have reviewed fellows assessment and plan as outlined in the progress note and agree with overall approach to this patient. I personally participated in the decision-making process as relates to this patient's medical condition. Please refer to [place] progress note for details of the medical care provided. Jaya Sweeney MD, DIYA, Kaelyn Toscano MD - 2020 10:05 AM CDTAssociated Order(s): CONSULT CARDIOLOGYRefer to consult note l Kaelyn Donohue MD - 2020 9:59 AM CDTBrief consult note Pt is a 75 year-old male with hx of CVA HTN HLP DM ESRD on HD (last session on Wednesday) here due to worsening dyspnea and fatigue despite having HD and meds adjustment. 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 Mode of Transport Back to Unit: NA - patient done at bedside See hemodialysis flowsheet for details of treatment. documented in this encounter ED Notes Pato Cardozo RN - 2020 8:34 AM CDTMike Octtwenty is a 75 year old male presenting to ED 105 via [facility] for cc of SOB x 1 day. Per EMS report patient o2 sat on RA 55%, patient diaphoretic upon arrival. EMS placed on CPAP O2 improved to 88%. PT hx of dialysis, fistula LA,Per ems report patient has been feeling unwell for about a week. EMSplaced 1 in nitro paste to R chest at 0820. Dr George and RT immediately to bedside Susanne Sims DO - 2020 8:33 AM CDT EMERGENCY PHYSICIAN RECORD GENERAL ADULT Time Seen: 8:51 AM HPI Chief Complaint: Patient with weakness, SOB and hypoxia for 1 day. EMS called and found diaphoretic and hypoxic. Hx of ESRD on dialysis, MWF, last dialysis this Wednesday. Minimal CP. Hx of CVA. Onset/Duration: today Timing: still present, pain none Severity of Pain: mild Quality: fullness Location: midsternal Associated Symptoms: SOB, elevated BP, diaphoresis. Review of Systems Eye: negative ENT: negative CV: CP Respiratory: SOB GI: negative : negative Musculoskeletal: negative Skin: negative Neuro: negative Psych: negative Endocrine: negative Hematic/lymphatic: negative Past Medical History No past medical history on file. Tetanus vaccination status reviewed: tetanus re-vaccination not indicated. Medications Current Facility-Administered Medications Medication Dose Route Frequency Last Rate Last Dose [COMPLETED] furosemide (LASIX) injection 40 mg 40 mg IV Push ONCE 40 mg at 03/17/20 0945 nitroglycerin (NITROL) 2 % ointment 1 Inch 1 Inch Transdermal (Apply To Skin) ONCE Stopped at1 0846 nitroglycerin (NITROSTAT) sublingual tablet 0.4 mg 0.4 mg Sublingual ONCE No current outpatient medications on file. Allergies No Known Allergies Social History Social History Socioeconomic History Marital status: Not on file Spouse name: Not on file Number of children: Not on file Years of education: Not on file Highest education level: Not on file Occupational History Not on file Social Needs Financial resource strain: Not on file Food insecurity Worry: Not on file Inability: Not on file Transportation needs Medical: Not on file Non-medical: Not on file Tobacco Use Smoking status: Not on file Substance and Sexual Activity Alcohol use: Not on file Drug use: Not on file Sexual activity: Not on file Lifestyle Physical activity Days per week: Not on file Minutes per session: Not on file Stress: Not on file Relationships Social connections Talks on phone: Not on file Gets together: Not on file Attends alevism service: Not on file Active member of club or organization: Not on file Attends meetings of clubs or organizations: Not on file Relationship status: Not on file Intimate partner violence Fear of current or ex partner: Not on file Emotionally abused: Not on file Physically abused: Not on file Forced sexual activity: Not on file Other Topics Concern Not on file Social History Narrative Not on file Family History No family history on file. Nursing Assessment Reviewed: yes Physical Exam BP (!) 205/92 | Pulse 93 | Resp 26 | Wt 79.4 kg (175 lb) | SpO2 96% General: alert and anxious Head: non-tender, no swelling and no obvious injury Neck: non-tender, supple and trachea midline Eyes: PERRL and EOMI ENT: normal external inspection and pharynx normal Cardiovascular: regular, rate, rhythm , heart sounds normal, PMI equal and pulses full/equal Respiratory: (+) prolonged respirations, (+) rales and (+) respiratory distress Abdomen: soft, non-tender, no organomegaly, normal bowel sounds and no abdominal bruit Rectal: deferred Back: non-tender, normal inspection and painless range of motion Skin: intact and warm, dry Extremities: atraumatic, normal range of motion, gait normal and pelvis stable Neuro/Psych: alert, oriented x3, cooperative and interactive Labs Recent Results (from the past 24 hour(s)) AC PANEL 20 + LACTIC ACID Collection Time: 03/17/20 8:44 AM Result Value Ref Range PH 7.12 (LL) 7.35 - 7.45 PCO2 66 (H) 35 - 45 mmHg PO2 78 (L) 80 - 100 mmHg HCO3 21 (L) 22 - 26 mEq/L BE -9.6 (L) -3.0 - 3.0 mEq/L THB 13.4 (L) 13.5 - 18.0 g/dL %O2HB 90.1 (L) 94.0 - 99.0 % %COHB ART 0.5 0.0 - 1.5 % %METHB ART 0.3 (L) 0.4 - 1.5 % VOL%O2 ART 17.0 15.0 - 23.0 % NA 138 135 - 145 mmol/L K+ 4.8 3.5 - 5.0 mmol/L AC CA IONZ 5.40 (H) 4.50 - 5.30 mg/dL GLUCOSE 204 (H) 70 - 110 mg/dL LACTIC ACID 1.84 mmol/L Recent Results (from the past 24 hour(s)) AC PANEL 20 + LACTIC ACID Collection Time: 03/17/20 8:44 AM Result Value Ref Range PH 7.12 (LL) 7.35 - 7.45 PCO2 66 (H) 35 - 45 mmHg PO2 78 (L) 80 - 100 mmHg HCO3 21 (L) 22 - 26 mEq/L BE -9.6 (L) -3.0 - 3.0 mEq/L THB 13.4 (L) 13.5 - 18.0 g/dL %O2HB 90.1 (L) 94.0 - 99.0 % %COHB ART 0.5 0.0 - 1.5 % %METHB ART 0.3 (L) 0.4 - 1.5 % VOL%O2 ART 17.0 15.0 - 23.0 % NA 138 135 - 145 mmol/L K+ 4.8 3.5 - 5.0 mmol/L AC CA IONZ 5.40 (H) 4.50 - 5.30 mg/dL GLUCOSE 204 (H) 70 - 110 mg/dL LACTIC ACID 1.84 mmol/L Basic Metabolic Panel (NA, K, CL, CO2, GLUCOSE, BUN, CREATININE, CA) Collection Time: 03/17/20 8:45 AM Result Value Ref Range NA 139 135 - 145 mmol/L K 5.4 (H) 3.5 - 5.0 mmol/L CL 103 98 - 108 mmol/L CO2 TOTAL 20 (L) 23 - 31 mmol/L AGAP 16 2 - 16 BUN 65 (H) 7 - 23 mg/dL GLUCOSE 200 (H) 70 - 110 mg/dL CREATININE 7.76 (H) 0.60 - 1.25 mg/dL CALCIUM 10.2 8.6 - 10.6 mg/dL eGFR Calculation (Non-) 6.8 mL/min/1.73m2 eGFR Calculation () 8.3 mL/min/1.73m2 CBC with Differential Collection Time: 03/17/20 8:45 AM Result Value Ref Range WBC 13.18 (H) 4.20 - 10.70 10*3/L RBC 4.06 (L) 4.26 - 5.52 10*6/L HGB 12.5 12.2 - 16.4 g/dL HCT 37.9 (L) 38.4 - 49.3 % MCV 93.3 81.7 - 95.6 fL MCH 30.8 26.1 - 32.7 pg MCHC 33.0 31.2 - 35.0 g/dL RDW-SD 42.2 38.5 - 51.6 fL RDW-CV 12.2 12.1 - 15.4 % PLT 225 150 - 328 10*3/L MPV 11.3 9.8 - 13.0 fL NRBC/100 WBC 0.0 0.0 - 10.0 /100 WBCs NRBC x10^3 <0.01 10*3/L GRAN MAT (NEUT) % 66.5 % IMM GRAN % 0.40 % LYMPH % 20.9 % MONO % 5.7 % EOS % 6.0 % BASO % 0.5 % GRAN MAT x10^3(ANC) 8.77 (H) 1.99 - 6.95 10*3/uL IMM GRAN x10^3 0.05 0.00 - 0.06 10*3/uL LYMPH x10^3 2.75 1.09 - 3.23 10*3/uL MONO x10^3 0.75 0.36 - 1.02 10*3/uL EOS x10^3 0.79 (H) 0.06 - 0.53 10*3/uL BASO x10^3 0.07 0.01 - 0.09 10*3/uL Hepatic Function Panel (ALB, T.PRO, BILI T, BU/BC, ALT, AST, ALK PHOS) Collection Time: 03/17/20 8:45 AM Result Value Ref Range TOTAL BILI 1.0 0.1 - 1.1 mg/dL BILI UNCON 0.7 0.1 - 1.1 mg/dL BILI CONJ 0.0 0.0 - 0.3 mg/dL T PROTEIN 7.9 6.3 - 8.2 g/dL ALBUMIN 4.8 3.5 - 5.0 g/dL ALK PHOS 63 34 - 122 U/L ALTv 16 5 - 50 U/L AST(SGOT) 39 13 - 40 U/L Lipase Serum Collection Time: 03/17/20 8:45 AM Result Value Ref Range LIPASE 195 0 - 220 U/L Troponin I Collection Time: 03/17/20 8:45 AM Result Value Ref Range TROPONIN I 0.030 <=0.034 ng/mL aPTT Collection Time: 03/17/20 8:45 AM Result Value Ref Range APTT Patient 27 26 - 36 Seconds Prothrombin Time (PT) / INR Collection Time: 03/17/20 8:45 AM Result Value Ref Range PROTIME PATIENT 11.0 10.1 - 12.6 Seconds INR 1.0 N-TERMINAL PRO-BNP Collection Time: 03/17/20 8:45 AM Result Value Ref Range NT-proBNP 25,200 (H) <=450 pg/mL COVID-19 (ID NOW RAPID TESTING) Collection Time: 03/17/20 8:52 AM Specimen: NASOPHARYNGEAL SWAB Result Value Ref Range SARS-CoV-2 Rapid ID NOW Not Detected Not Detected Troponin I Collection Time: 03/17/20 11:18 AM Result Value Ref Range TROPONIN I 0.075 (H) <=0.034 ng/mL Glycosylated Hemoglobin (A1C) Collection Time: 03/17/20 11:18 AM Result Value Ref Range HGB A1C 5.7 4.0 - 6.0 % Lipid Panel (Total Cholesterol, Triglycerides, HDL) Collection Time: 03/17/20 11:18 AM Result Value Ref Range CHOL 137 120 - 200 mg/dL HDL 59 >40 mg/dL HDLC RATIO 2.3 <=5.0 TRIG 83 30 - 170 mg/dL LDL CHOL 61 <=160 mg/dL VLDL 17 5 - 60 mg/dL Hepatic Function Panel (ALB, T.PRO, BILI T, BU/BC, ALT, AST, ALK PHOS) Collection Time: 03/17/20 11:18 AM Result Value Ref Range TOTAL BILI 0.9 0.1 - 1.1 mg/dL BILI UNCON 0.6 0.1 - 1.1 mg/dL BILI CONJ 0.0 0.0 - 0.3 mg/dL T PROTEIN 7.4 6.3 - 8.2 g/dL ALBUMIN 4.4 3.5 - 5.0 g/dL ALK PHOS 62 34 - 122 U/L ALTv 15 5 - 50 U/L AST(SGOT) 47 (H) 13 - 40 U/L Acute Care Arterial Blood Gas. Please repeat ABG on BIPAP Collection Time: 03/17/20 2:58 PM Result Value Ref Range PH 7.31 (L) 7.35 - 7.45 PCO2 39 35 - 45 mmHg PO2 100 80 - 100 mmHg HCO3 19 (L) 22 - 26 mEq/L BE -6.5 (L) -3.0 - 3.0 mEq/L Hospital Encounter on 03/17/20 Chest 1 View Narrative EXAM: XR CHEST 1 VW HISTORY: 75 years-old; Male; SOB COMPARISON: None FINDINGS: The patient is rotated. Lungs/Pleura: Prominent central vascular congestion with increase bilateral interstitial marking. There is no pleural effusion or pneumothorax. Heart/Mediastinum: The cardiomediastinal silhouette is enlarged. No acute osseous structure abnormality. Impression Mild pulmonary edema with cardiomegaly. Preliminary Report Dictated by Resident: Cristhian Arnett I, Irving Webber MD., have reviewed this study and agree with the above report. EKG: interpreted by me ST elevation leads III, aVF, ST depressions V1-3 Rate 92 Note STEMI activated. Cardiology to admit patient. Clinical Impression Diagnosis/Reason for ED Visit: SOB, CP. CHF Disposition Admitted. Condition: stable Susanne George D.O. EM Physician RTI Billing ID #[id number] documented in this encounter Miscellaneous Notes Nursing Note - Reno Vora RN - 03/29/2020 7:13 PM CSTHEMODIALYSIS NURSING NOTE Number Hours: 3.0 hours Bath: 3K 3 Calcium Heparin: limited heparin (3000 units total) Access: left AVF forearm Net UF: 2000 ml Weight: pre 69.5 kg, post 67.0 kg Post BP 149/75 Post Pulse 102 Antibiotics/Medications Given: none Complications/Events of Treatment: none Handoff report completed and attached to Patient Chart Mode of Transport Back to Unit: bed and accompanied by transporter See hemodialysis flowsheet for details of treatment. are Plan - Judy Lao RN - 03/29/2020 5:41 PM DEPUTY CHIEF SHERIFF Problem: Discharge Planning Goal: Absence of venous thromboembolism Outcome: Adequate for discharge Goal: Adequate for discharge Outcome: Adequate for discharge Goal: Effective communication Outcome: Adequate for discharge Problem: Falls, Risk of Goal: Absence of falls Outcome: Adequate for discharge Problem: Fluid Volume - Imbalanced Goal: Absence of signs and symptoms of imbalanced fluid volume Outcome: Adequate for discharge Problem: Glucose Control - Initiated in Adult CC Goal: Glucose level within specified parameters Outcome: Adequate for discharge Problem: Pain Goal: Control of pain at or below patient's documented comfort goal Outcome: Adequate for discharge Goal: Reduction in pain sensation Outcome: Adequate for discharge Problem: Respiratory Function - Impaired Goal: Able to cough effectively Outcome: Adequate for discharge Goal: Adequate oxygenation Outcome: Adequate for discharge Goal: Adequate work of breathing Outcome: Adequate for discharge Goal: Patent airway Outcome: Adequate for discharge Problem: Skin integrity Impaired (Risk or Actual) Goal: Prevention of new skin breakdown Outcome: Adequate for discharge Problem: Tissue Perfusion - Altered, Risk of Goal: Hemodynamically stable Outcome: Adequate for discharge Problem: Procedure Routine Goal: Knowledge of procedure Outcome: Adequate for discharge Problem: Infection, Risk of or Actual Goal: Absence of infection Outcome: Adequate for discharge Problem: Nutrition Deficit Goal: Adequate nutritional intake Outcome: Adequate for discharge Problem: Bleeding, Risk of Goal: Absence of impaired coagulation signs and symptoms Outcome: Adequate for discharge Goal: Absence of active bleeding Outcome: Adequate for discharge are Plan - Reno Vora RN - 03/29/2020 4:31 PM DEPUTY CHIEF SHERIFF Problem: Procedure Routine Goal: Knowledge of procedure Outcome: Progressing as expected Hemodialysis Plan of care reviewed r/t treatment time & UF goal. Also reviewed possible side effects of HD tx, such as s/s of hypotension, cramping (during tx and at rare times after tx), N/V, CP or any other concerns. Patient acknowledge understanding of treatment plan. ursing Note - Judy Lao RN - 03/29/2020 12:26 PM CSTV wires removed. Patient educated on procedure and expectations. Patient also educated on reportablesymptoms for post removal. Removal smooth. Patient tolerated well. Site clean, dry, no bleeding. Will continue to monitor. Tele strip and BP taken pre and post removal. Pre-removal: BP 130/53 HR 81 Post-removal: BP 145/45 HR 82 CVC from RIJ also removed at this time. Gauze and tegaderm dressing in place. Judy Lao RN 03/29/2020 12:28 PM are Plan - Anand Chun RN - 03/29/2020 5:17 AM DEPUTY CHIEF SHERIFF Problem: Discharge Planning Goal: Absence of venous thromboembolism Outcome: Progressing as expected Goal: Adequate for discharge Outcome: Progressing as expected Goal: Effective communication Outcome: Progressing as expected Problem: Falls, Risk of Goal: Absence of falls Outcome: Progressing as expected Problem: Fluid Volume - Imbalanced Goal: Absence of signs and symptoms of imbalanced fluid volume Outcome: Progressing as expected Problem: Glucose Control - Initiated in Adult CC Goal: Glucose level within specified parameters Outcome: Progressing as expected Problem: Pain Goal: Control of pain at or below patient's documented comfort goal Outcome: Progressing as expected Goal: Reduction in pain sensation Outcome: Progressing as expected Problem: Respiratory Function - Impaired Goal: Able to cough effectively Outcome: Progressing as expected Goal: Adequate oxygenation Outcome: Progressing as expected Goal: Adequate work of breathing Outcome: Progressing as expected Goal: Patent airway Outcome: Progressing as expected Problem: Skin integrity Impaired (Risk or Actual) Goal: Prevention of new skin breakdown Outcome: Progressing as expected Problem: Tissue Perfusion - Altered, Risk of Goal: Hemodynamically stable Outcome: Progressing as expected Problem: Infection, Risk of or Actual Goal: Absence of infection Outcome: Progressing as expected Problem: Nutrition Deficit Goal: Adequate nutritional intake Outcome: Progressing as expected Problem: Procedure Routine Goal: Knowledge of procedure Outcome: Progressing as expected Problem: Bleeding, Risk of Goal: Absence of impaired coagulation signs and symptoms Outcome: Progressing as expected Goal: Absence of active bleeding Outcome: Progressing as expected are Plan - Avinash Christian RN - 03/28/2020 4:59 PM DEPUTY CHIEF SHERIFF Problem: Procedure Routine Goal: Knowledge of procedure Outcome: Progressing as expected Note: Patient educated treatment as prescribed by assembler aircraft power plant regarding current treatment time ordered and fluid removal goals. Educated on initiation, monitoring, and termination of hemodialysis treatment, and possible complications (cramping, lightheadedness, cramping, dizziness, nausea, or headache during and post treatment and notifying healthcare team. are Plan - Judy Lao RN - 03/28/2020 4:44 PM DEPUTY CHIEF SHERIFF Problem: Discharge Planning Goal: Absence of venous thromboembolism Outcome: Progressing as expected Goal: Adequate for discharge Outcome: Progressing as expected Goal: Effective communication Outcome: Progressing as expected Problem: Falls, Risk of Goal: Absence of falls Outcome: Progressing as expected Problem: Fluid Volume - Imbalanced Goal: Absence of signs and symptoms of imbalanced fluid volume Outcome: Progressing as expected Problem: Glucose Control - Initiated in Adult CC Goal: Glucose level within specified parameters Outcome: Progressing as expected Problem: Pain Goal: Control of pain at or below patient's documented comfort goal Outcome: Progressing as expected Goal: Reduction in pain sensation Outcome: Progressing as expected Problem: Respiratory Function - Impaired Goal: Able to cough effectively Outcome: Progressing as expected Goal: Adequate oxygenation Outcome: Progressing as expected Goal: Adequate work of breathing Outcome: Progressing as expected Goal: Patent airway Outcome: Progressing as expected Problem: Skin integrity Impaired (Risk or Actual) Goal: Prevention of new skin breakdown Outcome: Progressing as expected Problem: Tissue Perfusion - Altered, Risk of Goal: Hemodynamically stable Outcome: Progressing as expected Problem: Procedure Routine Goal: Knowledge of procedure Outcome: Progressing as expected Problem: Infection, Risk of or Actual Goal: Absence of infection Outcome: Progressing as expected Problem: Nutrition Deficit Goal: Adequate nutritional intake Outcome: Progressing as expected Problem: Bleeding, Risk of Goal: Absence of impaired coagulation signs and symptoms Outcome: Progressing as expected Goal: Absence of active bleeding Outcome: Progressing as expected ursing Note - Judy Lao RN - 03/28/2020 1:47 PM CSTPatient has not voided today since arrival on unit ~10AM. Patient known ESRD on HD, still producing u rine, but oliguric. Bladder scan performed with results of 120ml. Will continue to monitor. Judy Lao RN 03/28/2020 1:49 PM are Plan - Darcy Alves RN - 03/27/2020 11:01 PM DEPUTY CHIEF SHERIFF Problem: Discharge Planning Goal: Absence of venous thromboembolism Outcome: Progressing as expected Goal: Adequate for discharge Outcome: Progressing as expected Goal: Effective communication Outcome: Progressing as expected Problem: Falls, Risk of Goal: Absence of falls Outcome: Progressing as expected Problem: Fluid Volume - Imbalanced Goal: Absence of signs and symptoms of imbalanced fluid volume Outcome: Progressing as expected Problem: Glucose Control - Initiated in Adult CC Goal: Glucose level within specified parameters Outcome: Progressing as expected Problem: Pain Goal: Control of pain at or below patient's documented comfort goal Outcome: Progressing as expected Goal: Reduction in pain sensation Outcome: Progressing as expected Problem: Respiratory Function - Impaired Goal: Able to cough effectively Outcome: Progressing as expected Goal: Adequate oxygenation Outcome: Progressing as expected Goal: Adequate work of breathing Outcome: Progressing as expected Goal: Patent airway Outcome: Progressing as expected Problem: Skin integrity Impaired (Risk or Actual) Goal: Prevention of new skin breakdown Outcome: Progressing as expected Problem: Tissue Perfusion - Altered, Risk of Goal: Hemodynamically stable Outcome: Progressing as expected Problem: Procedure Routine Goal: Knowledge of procedure Outcome: Progressing as expected Problem: Infection, Risk of or Actual Goal: Absence of infection Outcome: Progressing as expected Problem: Nutrition Deficit Goal: Adequate nutritional intake Outcome: Progressing as expected Problem: Bleeding, Risk of Goal: Absence of impaired coagulation signs and symptoms Outcome: Progressing as expected Goal: Absence of active bleeding Outcome: Progressing as expected TY CHIEF SHERIFF Nursing Note - Carmen Hitchcock RN - 03/27/2020 7:09 PM CSTHEMODIALYSIS NURSING NOTE Number Hours: 3.0 hours Bath: 2K 3 Calcium (standard dialysate) Heparin: limited heparin (3000 units total) Access: left AVF forearm Net UF: no fluid removed Weight: pre 67.9 kg, post 67.9 kg Post BP 125/80 Post Pulse 85 Antibiotics/Medications Given: none Complications/Events of Treatment: BFR kept at 250-300ml/min due to arterial alarm, Dr. Hugo angulo. Tx completed. Blood returned with NS. [place] pulled and sites held til bleeding stopped. Guaze and tape applied. No further bleeding noted. + thrill/bruit noted. Patient has no complaints/not in any acute distress post treatment. Verbal report given to Darcy GREIR Mode of Transport Back to Unit: NA - patient done at bedside See hemodialysis flowsheet for details of treatment. are Plan - Carmen Hitchcock RN - 03/27/2020 3:51 PM DEPUTY CHIEF SHERIFF Patient educated treatment as prescribed by assembler aircraft power plant regarding current treatment time ordered and fluid removal goals. Educated on initiation, monitoring, and termination of hemodialysis treatment, and possible complications (cramping, lightheadedness, cramping, dizziness, nausea, or headache during and post treatment and notifying healthcare team. Patient verbalized understanding of education. are Plan - Darcy Alves RN - 03/26/2020 9:38 PM DEPUTY CHIEF SHERIFF Problem: Discharge Planning Goal: Absence of venous thromboembolism Outcome: Progressing as expected Goal: Adequate for discharge Outcome: Progressing as expected Goal: Effective communication Outcome: Progressing as expected Problem: Falls, Risk of Goal: Absence of falls Outcome: Progressing as expected Problem: Fluid Volume - Imbalanced Goal: Absence of signs and symptoms of imbalanced fluid volume Outcome: Progressing as expected Problem: Glucose Control - Initiated in Adult CC Goal: Glucose level within specified parameters Outcome: Progressing as expected Problem: Pain Goal: Control of pain at or below patient's documented comfort goal Outcome: Progressing as expected Goal: Reduction in pain sensation Outcome: Progressing as expected Problem: Respiratory Function - Impaired Goal: Able to cough effectively Outcome: Progressing as expected Goal: Adequate oxygenation Outcome: Progressing as expected Goal: Adequate work of breathing Outcome: Progressing as expected Goal: Patent airway Outcome: Progressing as expected Problem: Skin integrity Impaired (Risk or Actual) Goal: Prevention of new skin breakdown Outcome: Progressing as expected Problem: Tissue Perfusion - Altered, Risk of Goal: Hemodynamically stable Outcome: Progressing as expected Problem: Procedure Routine Goal: Knowledge of procedure Outcome: Progressing as expected Problem: Infection, Risk of or Actual Goal: Absence of infection Outcome: Progressing as expected Problem: Nutrition Deficit Goal: Adequate nutritional intake Outcome: Progressing as expected Problem: Bleeding, Risk of Goal: Absence of impaired coagulation signs and symptoms Outcome: Progressing as expected Goal: Absence of active bleeding Outcome: Progressing as expected are Plan - Claudia Medina RN - 03/26/2020 6:28 PM [employer] Problem: Discharge Planning Goal: Absence of venous thromboembolism Outcome: Progressing as expected Goal: Adequate for discharge Outcome: Progressing as expected Goal: Effective communication Outcome: Progressing as expected Problem: Falls, Risk of Goal: Absence of falls Outcome: Progressing as expected Problem: Fluid Volume - Imbalanced Goal: Absence of signs and symptoms of imbalanced fluid volume Outcome: Progressing as expected Problem: Glucose Control - Initiated in Adult CC Goal: Glucose level within specified parameters Outcome: Progressing as expected Problem: Pain Goal: Control of pain at or below patient's documented comfort goal Outcome: Progressing as expected Goal: Reduction in pain sensation Outcome: Progressing as expected Problem: Respiratory Function - Impaired Goal: Able to cough effectively Outcome: Progressing as expected Goal: Adequate oxygenation Outcome: Progressing as expected Goal: Adequate work of breathing Outcome: Progressing as expected Goal: Patent airway Outcome: Progressing as expected Problem: Skin integrity Impaired (Risk or Actual) Goal: Prevention of new skin breakdown Outcome: Progressing as expected Problem: Tissue Perfusion - Altered, Risk of Goal: Hemodynamically stable Outcome: Progressing as expected Problem: Procedure Routine Goal: Knowledge of procedure Outcome: Progressing as expected Problem: Infection, Risk of or Actual Goal: Absence of infection Outcome: Progressing as expected Problem: Nutrition Deficit Goal: Adequate nutritional intake Outcome: Progressing as expected Problem: Bleeding, Risk of Goal: Absence of impaired coagulation signs and symptoms Outcome: Progressing as expected Goal: Absence of active bleeding Outcome: Progressing as expected are Plan - Darcy Alves RN - 03/25/2020 11:03 PM [employer] Problem: Discharge Planning Goal: Absence of venous thromboembolism Outcome: Progressing as expected Goal: Adequate for discharge Outcome: Progressing as expected Goal: Effective communication Outcome: Progressing as expected Problem: Falls, Risk of Goal: Absence of falls Outcome: Progressing as expected Problem: Fluid Volume - Imbalanced Goal: Absence of signs and symptoms of imbalanced fluid volume Outcome: Progressing as expected Problem: Glucose Control - Initiated in Adult CC Goal: Glucose level within specified parameters Outcome: Progressing as expected Problem: Pain Goal: Control of pain at or below patient's documented comfort goal Outcome: Progressing as expected Goal: Reduction in pain sensation Outcome: Progressing as expected Problem: Respiratory Function - Impaired Goal: Able to cough effectively Outcome: Progressing as expected Goal: Adequate oxygenation Outcome: Progressing as expected Goal: Adequate work of breathing Outcome: Progressing as expected Goal: Patent airway Outcome: Progressing as expected Problem: Skin integrity Impaired (Risk or Actual) Goal: Prevention of new skin breakdown Outcome: Progressing as expected Problem: Tissue Perfusion - Altered, Risk of Goal: Hemodynamically stable Outcome: Progressing as expected Problem: Procedure Routine Goal: Knowledge of procedure Outcome: Progressing as expected Problem: Infection, Risk of or Actual Goal: Absence of infection Outcome: Progressing as expected Problem: Nutrition Deficit Goal: Adequate nutritional intake Outcome: Progressing as expected Problem: Bleeding, Risk of Goal: Absence of impaired coagulation signs and symptoms Outcome: Progressing as expected Goal: Absence of active bleeding Outcome: Progressing as expected [employer] Anesthesia Note - Jg Chowdhury MD - 03/25/2020 3:51 PM CST ANESTHESIOLOGY REPORT FROM OPERATING ROOM Patient: Jose Combs [id number] 75 year old male Situation: Diagnosis: 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 Allergies: Patient has no known allergies. Pre-Op medication given: 1 mg versed Code Status: Will be reevaluated in 24 hrs. Intra-operative events/difficulties: hypotension, no flandreau rhythm requiring pacing Assessment: Lines: Peripheral IV 10/29/20 2138 Inferior;Right;Dorsal Arm Ultrasound not used (Active) Site assessment Clean;Dry;Intact 03/25/20343 Line status Saline Lock 03/25/20343 Line interventions None required 03/25/20343 Dressing status Clean;Intact;Dry 03/25/20343 Dressing intervention None required 03/25/20343 Reason site not rotated Not applicable () 03/23/20 0735 CVC Single Lumen 03/25/20 Right Internal jugular (Active) CVC Double Lumen 03/25/20 Right Internal jugular (Active) Arterial Line 03/25/20 (Active) Hemodialysis AV Arteriovenous fistula Left Forearm (Active) Site assessment Clean;Dry;Intact;Thrill present;Bruit ausculated 03/25/20 111 Dressing intervention New 03/25/20 111 Dressing status Clean;Dry;Intact 03/25/20 111 Distal Extremity Circulation intact;Sensation intact 03/25/20 111 Difficult Airway: no, easy airway Infusions: Dobutamine, Propofol and Amacar Drains: Chest tube(s) - 2 Monitors: Routine including A-line, and CVP, PA Catheter Positioning issues and concerns were discussed and addressed, the patient was warmed using an intra-operative warming device to maintain temperature. Muscle relaxants given: rocuronium. Reversal: yes Pain medication given: Fentanyl Fluids: Fluids Crystalloid: 2600 ml Colloid: 0 ml Blood Products PRBCs: 1 units FFP: 0 units PLTS: 1 units Cell saver: 270 ml EBL: 750 mL Urine output: 225 mL LAST ABG:: PH (no units) Date Value 2020 7.31 (L) PCO2 (mmHg) Date Value 2020 39 PO2 (mmHg) Date Value 2020 100 %O2HB (%) Date Value 2020 90.1 (L) HGB Date Value 03/20/2020 11.5 g/dL (L) 01/10/2014 13.7 G/DL NA (mmol/L) Date Value 2020 138 K+ (mmol/L) Date Value 2020 4.8 AC CA IONZ (mg/dL) Date Value 2020 5.40 (H) Recommendations: The following tasks were requested by the surgical team: BP goal per primary team CVP goal per primary team Transfusion threshold per primary team Postoperative protocol (cardiac, transplant, neuro) is in place. Other case-specific information: Anesthetic record was presented to and acknowledged by the SICU resident. Questions and concerns were addressed. SICU resident accepted transfer of care. ursing Note - Avinash Christian RN - 03/25/2020 10:31 AM CSTHEMODIALYSIS NURSING NOTE Number Hours: 3.0 hours Bath: 3K 3 Calcium Heparin: held for surgery Access: left AVF forearm Net UF: 2000ml Weight: pre 68.1 kg, post 65.7 kg Post BP 148/66 Post Pulse 60 Antibiotics/Medications Given: None Complications/Events of Treatment: None Handoff report completed and attached to Patient Chart Mode of Transport Back to Unit: wheelchair and accompanied by transporter See hemodialysis flowsheet for details of treatment. are Plan - Avinash Christian RN - 03/25/2020 8:10 AM [employer] Problem: Procedure Routine Goal: Knowledge of procedure Outcome: Progressing as expected Note: Patient educated treatment as prescribed by assembler aircraft power plant regarding current treatment time ordered and fluid removal goals. Educated on initiation, monitoring, and termination of hemodialysis treatment, and possible complications (cramping, lightheadedness, cramping, dizziness, nausea, or headache during and post treatment and notifying healthcare team. Patient verbalized understanding of education. are Plan - Nette Wood RN - 03/24/2020 10:43 PM [employer]IE[employer] Problem: Discharge Planning Goal: Absence of venous thromboembolism Outcome: Progressing as expected Goal: Adequate for discharge Outcome: Progressing as expected Goal: Effective communication Outcome: Progressing as expected Problem: Falls, Risk of Goal: Absence of falls Outcome: Progressing as expected Problem: Fluid Volume - Imbalanced Goal: Absence of signs and symptoms of imbalanced fluid volume Outcome: Progressing as expected Problem: Glucose Control - Initiated in Adult CC Goal: Glucose level within specified parameters Outcome: Progressing as expected Problem: Pain Goal: Control of pain at or below patient's documented comfort goal Outcome: Progressing as expected Goal: Reduction in pain sensation Outcome: Progressing as expected Problem: Respiratory Function - Impaired Goal: Able to cough effectively Outcome: Progressing as expected Goal: Adequate oxygenation Outcome: Progressing as expected Goal: Adequate work of breathing Outcome: Progressing as expected Goal: Patent airway Outcome: Progressing as expected Problem: Skin integrity Impaired (Risk or Actual) Goal: Prevention of new skin breakdown Outcome: Progressing as expected Problem: Tissue Perfusion - Altered, Risk of Goal: Hemodynamically stable Outcome: Progressing as expected Problem: Procedure Routine Goal: Knowledge of procedure Outcome: Progressing as expected Problem: Infection, Risk of or Actual Goal: Absence of infection Outcome: Progressing as expected Problem: Nutrition Deficit Goal: Adequate nutritional intake Outcome: Progressing as expected Problem: Bleeding, Risk of Goal: Absence of impaired coagulation signs and symptoms Outcome: Progressing as expected Goal: Absence of active bleeding Outcome: Progressing as expected are Plan - Mali Jackman RN - 03/24/2020 11:13 AM [employer] Problem: Discharge Planning Goal: Absence of venous thromboembolism Outcome: Progressing as expected Goal: Adequate for discharge Outcome: Progressing as expected Goal: Effective communication Outcome: Progressing as expected Problem: Falls, Risk of Goal: Absence of falls Outcome: Progressing as expected Problem: Fluid Volume - Imbalanced Goal: Absence of signs and symptoms of imbalanced fluid volume Outcome: Progressing as expected Problem: Glucose Control - Initiated in Adult CC Goal: Glucose level within specified parameters Outcome: Progressing as expected Problem: Pain Goal: Control of pain at or below patient's documented comfort goal Outcome: Progressing as expected Goal: Reduction in pain sensation Outcome: Progressing as expected Problem: Respiratory Function - Impaired Goal: Able to cough effectively Outcome: Progressing as expected Goal: Adequate oxygenation Outcome: Progressing as expected Goal: Adequate work of breathing Outcome: Progressing as expected Goal: Patent airway Outcome: Progressing as expected Problem: Skin integrity Impaired (Risk or Actual) Goal: Prevention of new skin breakdown Outcome: Progressing as expected Problem: Tissue Perfusion - Altered, Risk of Goal: Hemodynamically stable Outcome: Progressing as expected Problem: Procedure Routine Goal: Knowledge of procedure Outcome: Progressing as expected Problem: Infection, Risk of or Actual Goal: Absence of infection Outcome: Progressing as expected Problem: Nutrition Deficit Goal: Adequate nutritional intake Outcome: Progressing as expected Problem: Bleeding, Risk of Goal: Absence of impaired coagulation signs and symptoms Outcome: Progressing as expected Goal: Absence of active bleeding Outcome: Progressing as expected are Plan - Soha Post RN - 03/23/2020 11:06 PM CDT Problem: Discharge Planning Goal: Absence of venous thromboembolism Outcome: Progressing as expected Goal: Adequate for discharge Outcome: Progressing as expected Goal: Effective communication Outcome: Progressing as expected Problem: Falls, Risk of Goal: Absence of falls Outcome: Progressing as expected Problem: Fluid Volume - Imbalanced Goal: Absence of signs and symptoms of imbalanced fluid volume Outcome: Progressing as expected Problem: Glucose Control - Initiated in Adult CC Goal: Glucose level within specified parameters Outcome: Progressing as expected Problem: Pain Goal: Control of pain at or below patient's documented comfort goal Outcome: Progressing as expected Goal: Reduction in pain sensation Outcome: Progressing as expected Problem: Respiratory Function - Impaired Goal: Able to cough effectively Outcome: Progressing as expected Goal: Adequate oxygenation Outcome: Progressing as expected Goal: Adequate work of breathing Outcome: Progressing as expected Goal: Patent airway Outcome: Progressing as expected Problem: Skin integrity Impaired (Risk or Actual) Goal: Prevention of new skin breakdown Outcome: Progressing as expected Problem: Tissue Perfusion - Altered, Risk of Goal: Hemodynamically stable Outcome: Progressing as expected Problem: Infection, Risk of or Actual Goal: Absence of infection Outcome: Progressing as expected Problem: Nutrition Deficit Goal: Adequate nutritional intake Outcome: Progressing as expected Problem: Procedure Routine Goal: Knowledge of procedure Outcome: Progressing as expected Problem: Bleeding, Risk of Goal: Absence of impaired coagulation signs and symptoms Outcome: Progressing as expected Goal: Absence of active bleeding Outcome: Progressing as expected ursing Note - Jenny Hassan RN - 03/23/2020 12:51 PM CDTHEMODIALYSIS NURSING NOTE Number Hours: 4.0 hours Bath: Dialysate: 3K 3Ca+ Heparin: limited heparin (3000 units total) Access: left AVF forearm Current Access Type: AV fistula Weight: pre 67.6kg Post 64.5kg Net Ultrafiltrate - Post Treatment Net ultrafiltrate (mL) post dialysis treatment: 3000 mL Post BP 104/55, Post P 68 Antibiotics/Medications Given: N/A Complications/Events of Treatment: Tx completed. Blood returned with NS. [place] pulled and sites held til bleeding stopped. Guaze and tape applied. No further bleeding noted. + thrill/bruit noted. Patient left unit without complaints or distress. Written handoff report completed and attached to the patient chart. Mode of Transport Back to Unit: wheelchair and accompanied by transporter See hemodialysis flowsheet for details of treatment. Shireen Zavala RN - 03/23/2020 10:16 AM CDT Problem: Discharge Planning Goal: Absence of venous thromboembolism Outcome: Progressing as expected Goal: Adequate for discharge Outcome: Progressing as expected Goal: Effective communication Outcome: Progressing as expected Problem: Falls, Risk of Goal: Absence of falls Outcome: Progressing as expected Problem: Fluid Volume - Imbalanced Goal: Absence of signs and symptoms of imbalanced fluid volume Outcome: Progressing as expected Problem: Glucose Control - Initiated in Adult CC Goal: Glucose level within specified parameters Outcome: Progressing as expected Problem: Pain Goal: Control of pain at or below patient's documented comfort goal Outcome: Progressing as expected Goal: Reduction in pain sensation Outcome: Progressing as expected Problem: Respiratory Function - Impaired Goal: Able to cough effectively Outcome: Progressing as expected Goal: Adequate oxygenation Outcome: Progressing as expected Goal: Adequate work of breathing Outcome: Progressing as expected Goal: Patent airway Outcome: Progressing as expected Problem: Skin integrity Impaired (Risk or Actual) Goal: Prevention of new skin breakdown Outcome: Progressing as expected Problem: Tissue Perfusion - Altered, Risk of Goal: Hemodynamically stable Outcome: Progressing as expected Problem: Procedure Routine Goal: Knowledge of procedure Outcome: Progressing as expected Problem: Infection, Risk of or Actual Goal: Absence of infection Outcome: Progressing as expected Problem: Nutrition Deficit Goal: Adequate nutritional intake Outcome: Progressing as expected Problem: Bleeding, Risk of Goal: Absence of impaired coagulation signs and symptoms Outcome: Progressing as expected Goal: Absence of active bleeding Outcome: Progressing as expected Jenny Kohler RN - 03/23/2020 8:09 AM CDTPatient educated treatment as prescribed by assembler aircraft [employer] regarding current treatment time ordered and fluid removal goals. Educated on initiation, monitoring, and termination of hemodialysis treatment,and possible complications (cramping, lightheadedness, cramping, dizziness, nausea, or headache during and post treatment and notifying healthcare team. Patient verbalized understanding of education. Melissa Bose RN - 03/22/2020 11:02 PM CDT Problem: Discharge Planning Goal: Absence of venous thromboembolism Outcome: Progressing as expected Goal: Adequate for discharge Outcome: Progressing as expected Goal: Effective communication Outcome: Progressing as expected Problem: Falls, Risk of Goal: Absence of falls Outcome: Progressing as expected Problem: Fluid Volume - Imbalanced Goal: Absence of signs and symptoms of imbalanced fluid volume Outcome: Progressing as expected Problem: Glucose Control - Initiated in Adult CC Goal: Glucose level within specified parameters Outcome: Progressing as expected Problem: Pain Goal: Control of pain at or below patient's documented comfort goal Outcome: Progressing as expected Goal: Reduction in pain sensation Outcome: Progressing as expected Problem: Respiratory Function - Impaired Goal: Able to cough effectively Outcome: Progressing as expected Goal: Adequate oxygenation Outcome: Progressing as expected Goal: Adequate work of breathing Outcome: Progressing as expected Goal: Patent airway Outcome: Progressing as expected Problem: Skin integrity Impaired (Risk or Actual) Goal: Prevention of new skin breakdown Outcome: Progressing as expected Problem: Procedure Routine Goal: Knowledge of procedure Outcome: Progressing as expected Problem: Bleeding, Risk of Goal: Absence of impaired coagulation signs and symptoms Outcome: Progressing as expected Goal: Absence of active bleeding Outcome: Progressing as expected Tomeka Jasso RN - 03/22/2020 7:34 AM CDT Problem: Discharge Planning Goal: Absence of venous thromboembolism Outcome: Progressing as expected Goal: Adequate for discharge Outcome: Progressing as expected Goal: Effective communication Outcome: Progressing as expected Problem: Falls, Risk of Goal: Absence of falls Outcome: Progressing as expected Problem: Fluid Volume - Imbalanced Goal: Absence of signs and symptoms of imbalanced fluid volume Outcome: Progressing as expected Problem: Glucose Control - Initiated in Adult CC Goal: Glucose level within specified parameters Outcome: Progressing as expected Problem: Pain Goal: Control of pain at or below patient's documented comfort goal Outcome: Progressing as expected Goal: Reduction in pain sensation Outcome: Progressing as expected Problem: Respiratory Function - Impaired Goal: Able to cough effectively Outcome: Progressing as expected Goal: Adequate oxygenation Outcome: Progressing as expected Goal: Adequate work of breathing Outcome: Progressing as expected Goal: Patent airway Outcome: Progressing as expected Problem: Skin integrity Impaired (Risk or Actual) Goal: Prevention of new skin breakdown Outcome: Progressing as expected Problem: Tissue Perfusion - Altered, Risk of Goal: Hemodynamically stable Outcome: Progressing as expected Problem: Procedure Routine Goal: Knowledge of procedure Outcome: Progressing as expected Problem: Infection, Risk of or Actual Goal: Absence of infection Outcome: Progressing as expected Problem: Nutrition Deficit Goal: Adequate nutritional intake Outcome: Progressing as expected Problem: Bleeding, Risk of Goal: Absence of impaired coagulation signs and symptoms Outcome: Progressing as expected Goal: Absence of active bleeding Outcome: Progressing as expected Kya Neal RN - 03/21/2020 10:57 PM CDT Problem: Discharge Planning Goal: Absence of venous thromboembolism Outcome: Progressing as expected Goal: Adequate for discharge Outcome: Progressing as expected Goal: Effective communication Outcome: Progressing as expected Problem: Falls, Risk of Goal: Absence of falls Outcome: Progressing as expected Problem: Fluid Volume - Imbalanced Goal: Absence of signs and symptoms of imbalanced fluid volume Outcome: Progressing as expected Problem: Glucose Control - Initiated in Adult CC Goal: Glucose level within specified parameters Outcome: Progressing as expected Problem: Respiratory Function - Impaired Goal: Able to cough effectively Outcome: Progressing as expected Goal: Adequate oxygenation Outcome: Progressing as expected Goal: Adequate work of breathing Outcome: Progressing as expected Goal: Patent airway Outcome: Progressing as expected Problem: Pain Goal: Control of pain at or below patient's documented comfort goal Outcome: Progressing as expected Goal: Reduction in pain sensation Outcome: Progressing as expected Problem: Bleeding, Risk of Goal: Absence of impaired coagulation signs and symptoms Outcome: Progressing as expected Goal: Absence of active bleeding Outcome: Progressing as expected Problem: Infection, Risk of or Actual Goal: Absence of infection Outcome: Progressing as expected Tomeka Jasso RN - 03/21/2020 11:18 AM CDT Problem: Discharge Planning Goal: Absence of venous thromboembolism Outcome: Progressing as expected Goal: Adequate for discharge Outcome: Progressing as expected Goal: Effective communication Outcome: Progressing as expected Problem: Falls, Risk of Goal: Absence of falls Outcome: Progressing as expected Problem: Fluid Volume - Imbalanced Goal: Absence of signs and symptoms of imbalanced fluid volume Outcome: Progressing as expected Problem: Glucose Control - Initiated in Adult CC Goal: Glucose level within specified parameters Outcome: Progressing as expected Problem: Pain Goal: Control of pain at or below patient's documented comfort goal Outcome: Progressing as expected Goal: Reduction in pain sensation Outcome: Progressing as expected Problem: Respiratory Function - Impaired Goal: Able to cough effectively Outcome: Progressing as expected Goal: Adequate oxygenation Outcome: Progressing as expected Goal: Adequate work of breathing Outcome: Progressing as expected Goal: Patent airway Outcome: Progressing as expected Problem: Skin integrity Impaired (Risk or Actual) Goal: Prevention of new skin breakdown Outcome: Progressing as expected Problem: Tissue Perfusion - Altered, Risk of Goal: Hemodynamically stable Outcome: Progressing as expected Problem: Procedure Routine Goal: Knowledge of procedure Outcome: Progressing as expected Problem: Infection, Risk of or Actual Goal: Absence of infection Outcome: Progressing as expected Problem: Nutrition Deficit Goal: Adequate nutritional intake Outcome: Progressing as expected Problem: Bleeding, Risk of Goal: Absence of impaired coagulation signs and symptoms Outcome: Progressing as expected Goal: Absence of active bleeding Outcome: Progressing as expected ursing Note - Shireen Sher RN - 03/21/2020 10:54 AM CDTHEMODIALYSIS NURSING NOTE Number Hours: 4.0 hours Bath: 2K 3 Calcium (standard dialysate) Heparin: zero Access: left AVF lower arm Net UF: 2629 Weight: pre 68.4 kg, post 65.3kg Post BP 107/59 Post Pulse 71 Antibiotics/Medications Given: none Complications/Events of Treatment: TOLERATED TX WELL, DENIES S/S OF DISTRESS, B/T NOTED, NO ACTIVE BLEEDING, N/V RESOLVED STATES FEEL BETTER Handoff report completed and attached to Patient Chart Mode of Transport Back to Unit: wheelchair See hemodialysis flowsheet for details of treatment. are Plan - Shireen Sher RN - 03/21/2020 10:53 AM CDTPatient educated treatment as prescribed by assembler aircraft power plant regarding current treatment time ordered and fluid removal goals. Educated on initiation, monitoring, and termination of hemodialysis treatment,and possible complications (cramping, lightheadedness, cramping, dizziness, nausea, or headache during and post treatment and notifying healthcare team. Patient verbalized understanding of education. HEMODIALYSIS Nette Garcia RN - 03/21/2020 5:20 AM CDT Problem: Discharge Planning Goal: Absence of venous thromboembolism Outcome: Progressing as expected Goal: Adequate for discharge Outcome: Progressing as expected Goal: Effective communication Outcome: Progressing as expected Problem: Falls, Risk of Goal: Absence of falls Outcome: Progressing as expected Problem: Fluid Volume - Imbalanced Goal: Absence of signs and symptoms of imbalanced fluid volume Outcome: Progressing as expected Problem: Glucose Control - Initiated in Adult CC Goal: Glucose level within specified parameters Outcome: Progressing as expected Problem: Pain Goal: Control of pain at or below patient's documented comfort goal Outcome: Progressing as expected Goal: Reduction in pain sensation Outcome: Progressing as expected Problem: Respiratory Function - Impaired Goal: Able to cough effectively Outcome: Progressing as expected Goal: Adequate oxygenation Outcome: Progressing as expected Goal: Adequate work of breathing Outcome: Progressing as expected Goal: Patent airway Outcome: Progressing as expected Problem: Skin integrity Impaired (Risk or Actual) Goal: Prevention of new skin breakdown Outcome: Progressing as expected Problem: Tissue Perfusion - Altered, Risk of Goal: Hemodynamically stable Outcome: Progressing as expected Problem: Procedure Routine Goal: Knowledge of procedure Outcome: Progressing as expected Problem: Infection, Risk of or Actual Goal: Absence of infection Outcome: Progressing as expected Problem: Nutrition Deficit Goal: Adequate nutritional intake Outcome: Progressing as expected Problem: Bleeding, Risk of Goal: Absence of impaired coagulation signs and symptoms Outcome: Progressing as expected Goal: Absence of active bleeding Outcome: Progressing as expected Tomeka Jasso RN - 03/20/2020 2:02 PM CDT Problem: Discharge Planning Goal: Absence of venous thromboembolism Outcome: Progressing as expected Goal: Adequate for discharge Outcome: Progressing as expected Goal: Effective communication Outcome: Progressing as expected Problem: Falls, Risk of Goal: Absence of falls Outcome: Progressing as expected Problem: Fluid Volume - Imbalanced Goal: Absence of signs and symptoms of imbalanced fluid volume Outcome: Progressing as expected Problem: Glucose Control - Initiated in Adult CC Goal: Glucose level within specified parameters Outcome: Progressing as expected Problem: Pain Goal: Control of pain at or below patient's documented comfort goal Outcome: Progressing as expected Goal: Reduction in pain sensation Outcome: Progressing as expected Problem: Respiratory Function - Impaired Goal: Able to cough effectively Outcome: Progressing as expected Goal: Adequate oxygenation Outcome: Progressing as expected Goal: Adequate work of breathing Outcome: Progressing as expected Goal: Patent airway Outcome: Progressing as expected Problem: Skin integrity Impaired (Risk or Actual) Goal: Prevention of new skin breakdown Outcome: Progressing as expected Problem: Tissue Perfusion - Altered, Risk of Goal: Hemodynamically stable Outcome: Progressing as expected Problem: Procedure Routine Goal: Knowledge of procedure Outcome: Progressing as expected Problem: Infection, Risk of or Actual Goal: Absence of infection Outcome: Progressing as expected Problem: Nutrition Deficit Goal: Adequate nutritional intake Outcome: Progressing as expected Problem: Bleeding, Risk of Goal: Absence of impaired coagulation signs and symptoms Outcome: Progressing as expected Goal: Absence of active bleeding Outcome: Progressing as expected are Plan - Tyrel John RN - 03/20/2020 1:20 AM CDT Problem: Discharge Planning Goal: Absence of venous thromboembolism Outcome: Progressing as expected Goal: Adequate for discharge Outcome: Progressing as expected Goal: Effective communication Outcome: Progressing as expected Problem: Falls, Risk of Goal: Absence of falls Outcome: Progressing as expected Problem: Fluid Volume - Imbalanced Goal: Absence of signs and symptoms of imbalanced fluid volume Outcome: Progressing as expected Problem: Glucose Control - Initiated in Adult CC Goal: Glucose level within specified parameters Outcome: Progressing as expected Problem: Pain Goal: Control of pain at or below patient's documented comfort goal Outcome: Progressing as expected Goal: Reduction in pain sensation Outcome: Progressing as expected Problem: Respiratory Function - Impaired Goal: Able to cough effectively Outcome: Progressing as expected Goal: Adequate oxygenation Outcome: Progressing as expected Goal: Adequate work of breathing Outcome: Progressing as expected Goal: Patent airway Outcome: Progressing as expected Problem: Skin integrity Impaired (Risk or Actual) Goal: Prevention of new skin breakdown Outcome: Progressing as expected Problem: Tissue Perfusion - Altered, Risk of Goal: Hemodynamically stable Outcome: Progressing as expected Problem: Procedure Routine Goal: Knowledge of procedure Outcome: Progressing as expected Problem: Infection, Risk of or Actual Goal: Absence of infection Outcome: Progressing as expected Problem: Nutrition Deficit Goal: Adequate nutritional intake Outcome: Progressing as expected Problem: Bleeding, Risk of Goal: Absence of impaired coagulation signs and symptoms Outcome: Progressing as expected Goal: Absence of active bleeding Outcome: Progressing as expected Care Plan - Jyothi Whaley RN - 03/19/2020 9:06 PM CDT Problem: Discharge Planning Goal: Absence of venous thromboembolism Outcome: Progressing as expected Goal: Adequate for discharge Outcome: Progressing as expected Goal: Effective communication Outcome: Progressing as expected Problem: Falls, Risk of Goal: Absence of falls Outcome: Progressing as expected Problem: Fluid Volume - Imbalanced Goal: Absence of signs and symptoms of imbalanced fluid volume Outcome: Progressing as expected Problem: Glucose Control - Initiated in Adult CC Goal: Glucose level within specified parameters Outcome: Progressing as expected Problem: Pain Goal: Control of pain at or below patient's documented comfort goal Outcome: Progressing as expected Goal: Reduction in pain sensation Outcome: Progressing as expected Problem: Respiratory Function - Impaired Goal: Able to cough effectively Outcome: Progressing as expected Goal: Adequate oxygenation Outcome: Progressing as expected Goal: Adequate work of breathing Outcome: Progressing as expected Goal: Patent airway Outcome: Progressing as expected Problem: Skin integrity Impaired (Risk or Actual) Goal: Prevention of new skin breakdown Outcome: Progressing as expected Problem: Tissue Perfusion - Altered, Risk of Goal: Hemodynamically stable Outcome: Progressing as expected Problem: Procedure Routine Goal: Knowledge of procedure Outcome: Progressing as expected Problem: Infection, Risk of or Actual Goal: Absence of infection Outcome: Progressing as expected Problem: Nutrition Deficit Goal: Adequate nutritional intake Outcome: Progressing as expected Problem: Bleeding, Risk of Goal: Absence of impaired coagulation signs and symptoms Outcome: Progressing as expected Goal: Absence of active bleeding Outcome: Progressing as expected ursing Note - Carmen Hitchcock RN - 03/19/2020 8:04 PM CDTHEMODIALYSIS NURSING NOTE Number Hours: 4.0 hours Bath: 3K 3 Calcium Heparin: patient on heparin drip Access: left AVF forearm Net UF: 2500ml Weight: pre 67.6 kg, post 64.6 kg Post BP 139/63 Post Pulse 71 Antibiotics/Medications Given: none Complications/Events of Treatment: Tx completed. Blood returned with NS. [place] pulled and sites held til bleeding stopped. Guaze and tape applied. No further bleeding noted. + thrill/bruit noted. Patient is stable/denies any pain/discomfort/not in any distress post treatment. Verbal report given to Jyothi GRIER Mode of Transport Back to Unit: NA - patient done at bedside See hemodialysis flowsheet for details of treatment. jenifer Elizondo - Carmen Hitchcock RN - 03/19/2020 3:40 PM CDTPatient educated treatment as prescribed by assembler aircraft power plant regarding current treatment time ordered and fluid removal goals. Educated on initiation, monitoring, and termination of hemodialysis treatment,and possible complications (cramping, lightheadedness, cramping, dizziness, nausea, or headache during and post treatment and notifying healthcare team. Patient verbalized understanding of education. ath Lab Procedure Note - Madelyn Vanegas RN - 03/19/2020 10:47 AM CDTElapsed Sedation Time: 43 min. are Plan - Jyothi Whaley RN - 03/18/2020 9:17 PM CDT Problem: Discharge Planning Goal: Absence of venous thromboembolism Outcome: Not progressing as expected Goal: Adequate for discharge Outcome: Not progressing as expected Goal: Effective communication Outcome: Not progressing as expected Problem: Falls, Risk of Goal: Absence of falls Outcome: Not progressing as expected Problem: Fluid Volume - Imbalanced Goal: Absence of signs and symptoms of imbalanced fluid volume Outcome: Not progressing as expected Problem: Glucose Control - Initiated in Adult CC Goal: Glucose level within specified parameters Outcome: Not progressing as expected Problem: Pain Goal: Control of pain at or below patient's documented comfort goal Outcome: Not progressing as expected Goal: Reduction in pain sensation Outcome: Not progressing as expected Problem: Respiratory Function - Impaired Goal: Able to cough effectively Outcome: Not progressing as expected Goal: Adequate oxygenation Outcome: Not progressing as expected Goal: Adequate work of breathing Outcome: Not progressing as expected Goal: Patent airway Outcome: Not progressing as expected Problem: Skin integrity Impaired (Risk or Actual) Goal: Prevention of new skin breakdown Outcome: Not progressing as expected Problem: Tissue Perfusion - Altered, Risk of Goal: Hemodynamically stable Outcome: Not progressing as expected Problem: Procedure Routine Goal: Knowledge of procedure Outcome: Not progressing as expected Problem: Infection, Risk of or Actual Goal: Absence of infection Outcome: Not progressing as expected Problem: Nutrition Deficit Goal: Adequate nutritional intake Outcome: Not progressing as expected ursing Note - Avinash Christian RN - 2020 5:58 PM CDTHEMODIALYSIS NURSING NOTE Number Hours: 3.0 hours Bath: 2K 3 Calcium (standard dialysate) Heparin: heparin drip Access: left AVF forearm Net UF: 2000ml Weight: pre 72.5 kg, post 70.5 kg Post BP 170/59 Post Pulse 67 Antibiotics/Medications Given: None Complications/Events of Treatment: asymptomatic HTN, nitro drip held until after HD. Venous cannulation had a clot, cannulated above that area with BFR 300. notified. Handoff report completed verbally to Primary RN Mode of Transport Back to Unit: NA - patient done at bedside, ICU 0821. See hemodialysis flowsheet for details of treatment. are Plan - Avinash Christian RN - 2020 5:06 PM CDTPatient educated treatment as prescribed by assembler aircraft power plant regarding current treatment time ordered and fluid removal goals. Educated on initiation, monitoring, and termination of hemodialysis treatment,and possible complications (cramping, lightheadedness, cramping, dizziness, nausea, or headache during and post treatment and notifying healthcare team. are Caro - Ivette Darling RN - 2020 3:44 PM CDT Problem: Discharge Planning Goal: Absence of venous thromboembolism Outcome: Progressing as expected Problem: Falls, Risk of Goal: Absence of falls Outcome: Progressing as expected Problem: Discharge Planning Goal: Adequate for discharge Outcome: Not progressing as expected D Nurse Note - Cleveland Bhagat RN - 2020 3:06 PM CDTpatient en route to ICU via critical care transport at this time. NAD noted. VSS. D Nurse Note - Pato Cardozo RN - 2020 2:52 PM CDTRT to bedside to draw ABGs D Nurse Note - Pato Cardozo RN - 2020 2:48 PM CDTTransportation placed in teletracking Patient and family updated on pending transport D Nurse Note - Pato Cardozo RN - 2020 2:40 PM CDTBladder Scanned at this time patient has 177mL in bladder D Nurse Note - Pato Cardozo RN - 2020 2:39 PM CDTReport called to MARVEL Marti D Nurse Note - Jyothi Lares RN - 2020 2:01 PM CDTNephrology at bedside. D Nurse Note - Pato Cardozo RN - 2020 12:[address] Donohue, Cardiology, states not to give Plavix 300mg as ordered but to start heparin gtt as repeat troponin is elevated D Nurse Note - Pato Cardozo RN - 2020 11:[address] Allison at bedside evaluating patient D Nurse Note - Pato Cardozo RN - 2020 11:30 AM CDTAttempted fuller catheter insertion with 16fr temp fuller as ordered and to obtain UA. Sterile technique maintained but resistance noted when about half the length of catheter tube was inthe penis. Patient with hx of prostatectomy. Will order coude catheter. D Nurse Note - Pato Cardozo RN - 2020 10:57 AM CDTRT to bedside to replace BIPAP D Nurse Note - Pato Cardozo RN - 2020 10:53 AM Rbuio George notified of SOB, states to place patient back on BiPAP. RT notified Cardiology paged at [phone] to confirm plavix order as patient states he took a dose of Plavix this AM and an 81mg ASA Pt's POA, Adia, notified of plan of care and translated to patient . Both agreeable D Nurse Note - Pato Cardozo RN - 2020 10:45 AM CDTPatient reports feeling more SOB, patient HOB elevated, currently satting 100% on 5 LNC with good waveform. D Nurse Note - Pato Cardozo RN - 2020 10:[address] George, Cardiology not to take patient to laborer steel handling at this time, Cardiology requesting nitro gtt to be started for goal systolic BP between 130-140 D Nurse Note - Pato Cardozo RN - 2020 9:23 AM CDTPatient alert and oriented, slightly labored RR, skin warm and dry, no pallor/cyanosis. VSS on tele monitoring. Patient currently on 5L via NC satting 100% with good waveform on monitor. Patient pending dispo by ED MD and Cardiology at this time D Nurse Note - Pato Cardozo RN - 2020 9:17 AM CDTPer patient's daughter in law, patient still makes urine, voided this AM. Patient unable to void nowfor UA, urinal inpatient's reach Dr Donohue, Cardiology, at bedside using US to evaluate heart D Nurse Note - Pato Cardozo RN - 2020 9:14 AM CDTPer verbal order from Dr George, hold Nitro gtt until Systolic BP reaches 200 D Nurse Note - Pato Cardozo RN - 2020 9:10 AM CDTPt vomited clear liquid no blood, bipap removed momentarily, DR George notified orders received for 4mgZofran IVP. LIÁN Nurse Note - Pato Cardozo RN - 2020 9:[address] Donohue, [employer] at bedside D Nurse Note - Pato Cardozo RN - 2020 8:59 AM CDTRT at bedside and increased O2 via CPAP to 75% D Nurse Note - Pato Cardozo RN - 2020 8:57 AM CDTPatient changed into gown for STEMI activation, belongings given to daughter in law, Adia Casillas, t shirt and shorts given to her, no valuables to be collected D Nurse Note - Pato Cardozo RN - 2020 8:57 AM CDTSTEMI activation paged out D Nurse Note - Pato Cardozo RN - 2020 8:55 AM CDTPatient placed on Zoll Monitoring pads D Nurse Note - Marlee Walton RN - 2020 8:[address] George activate stemi at this time. Dispatch notified. D Nurse Note - Pato Cardozo RN - 2020 8:45 AM CDTXray at bedside for chest 1 view D Nurse Note - Pato Cardozo RN - 2020 8:44 AM CDTPatient's daughter in law, arrived to bedside, states patient lives with her and has been feeling unwell for a about a week and his BP has been elevated for about a month- Dr Christie started patient on clonidine in addition to other BP medications but BP remains high. Reports last dialysis was received full treatment documented in this encounter Plan of Treatment Date Type Specialty Care Team Description 04/11/2020 Office Visit Thoracic Surgery Cornel Whitehead MD [address] [place] [address] [phone] 04/16/2020 Office Visit Ophthalmology Rosalva Marr MD [address] [place] [address] [place] [phone] 05/28/2020 Office Visit Geriatric Medicine Loren Christie MD [address] [place] [address] [address] [place], [place] [phone] Name Type Priority Associated Diagnoses Order S chedule AC ABG + LACTIC LAB STAT Shortness of breath STAT for 1 Occurrences ACID starting 2019 until 0 Troponin I LAB Routine EVERY 6 HOURS ( START TIME ADJUSTABLE ) START TIME ADJUSTABLE for 1 Days starting 2020 unti l 03/18/2020, 3 completed EKG-12 LEAD ROUTINE HEART STATION Routine EVERY M ORNING for 3 Days starting 03/18/2020 unti l 03/20/2020, 1 completed EKG-12 LEAD ROUTINE HEART STATION Routine ONCE fo r 1 Occurrences starting 2019 until 0 EKG-12 LEAD ROUTINE HEART STATION ABDIAS S/P CABG (coronary T OMORROW AM AT 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 TOMORROW AM-0500 artery bypass graft) for 1 Occurrences starting 2019 until 0 Health Maintenance Due Date Last Done Comments [...] of this encounter Implants Implanted Type Area Barkeeper Device Shelf Model / Identifier Expiration Serial / Date Lot Kiki Royal035 4mm X 40mm X 75cm 5fr Bard#[id number] - Sn/A Balloo n Left: Arm Bard 07/30/2020 [id number] / Implanted: Qty: 1 on 03/15/2018 by Compa Catherine MD at [facility] N/A / [id number] Angio-Seal Evolution Vascular Closure Device [employer] M edical #[id number] - S0 OCCLUSION Right: Terumo 09/20/2018 [id number] / Implanted: Qty: 1 on 08/09/2018 by Phi Perdue Jr., MD at [facility] DEVICE Groin 0 / [id number] Stent, [place] [id number] Viabahn Vasc 120cm Cath #[id number] - S [id number] STENT Left: Arm W L [place] 02/01/2021 [id number] / Implanted: Qty: 1 on 06/28/2018 by Compa Catherine MD at [facility] [id number] / NA documented as of this encounter Procedures Procedure Name Priority Date/Time Associated Comments Diagnosis POCT GLUCOSE Routine 03/29/2020 12:34 Results for (AUTOMATED) PM DEPUTY CHIEF SHERIFF this procedure are in the results section. POCT GLUCOSE Routine 03/29/2020 7:54 Results for (AUTOMATED) AM DEPUTY CHIEF SHERIFF this procedure are in the results section. POCT GLUCOSE Routine 03/29/2020 3:54 Results for (AUTOMATED) AM DEPUTY CHIEF SHERIFF this procedure are in the results section. POCT GLUCOSE Routine 03/29/2020 12:02 Results for (AUTOMATED) AM DEPUTY CHIEF SHERIFF this procedure are in the results section. POCT GLUCOSE Routine 03/28/2020 7:33 Results for (AUTOMATED) PM DEPUTY CHIEF SHERIFF this procedure are in the results section. POCT GLUCOSE Routine 03/28/2020 5:47 Results for (AUTOMATED) PM DEPUTY CHIEF SHERIFF this procedure are in the results section. POCT GLUCOSE Routine 03/28/2020 11:10 Results for (AUTOMATED) AM DEPUTY CHIEF SHERIFF this procedure are in the results section. XR CHEST 2 VW STAT 03/28/2020 10:05 S/P CABG (coronary Resu lts for AM DEPUTY CHIEF SHERIFF artery bypass this procedure graft) are in the results section. POCT GLUCOSE Routine 03/28/2020 8:00 Results for (AUTOMATED) AM DEPUTY CHIEF SHERIFF this procedure are in the results section. HB ECG ROUTINE & Routine 03/28/2020 5:47 Shortness of RHYTHM STRIP AM DEPUTY CHIEF SHERIFF breath CBC WITH DIFF ABDIAS 03/28/2020 4:20 Results fo r AM DEPUTY CHIEF SHERIFF this procedure are in the results section. BASIC METABOLIC PANEL ABDIAS 03/28/2020 4:20 Re sults for (NA, K, CL, CO2, AM DEPUTY CHIEF SHERIFF this proced ure GLUCOSE, BUN, are in the CREATININE, CA) results section. MAGNESIUM ABDIAS 03/28/2020 4:20 Results for AM DEPUTY CHIEF SHERIFF this procedure are in the results section. PHOSPHORUS ABDIAS 03/28/2020 4:20 Results for AM DEPUTY CHIEF SHERIFF this procedure are in the results section. POCT GLUCOSE Routine 03/28/2020 4:19 Results for (AUTOMATED) AM DEPUTY CHIEF SHERIFF this procedure are in the results section. POCT GLUCOSE Routine 03/27/2020 11:18 Results for (AUTOMATED) PM DEPUTY CHIEF SHERIFF this procedure are in the results section. HB ECG ROUTINE & STAT 03/27/2020 10:18 S/P CABG (coronary RHYTHM STRIP PM DEPUTY CHIEF SHERIFF artery bypass graft) BASIC METABOLIC PANEL ABDIAS 03/27/2020 9:59 Re sults for (NA, K, CL, CO2, PM DEPUTY CHIEF SHERIFF this proced ure GLUCOSE, BUN, are in the CREATININE, CA) results section. MAGNESIUM STAT Add-On 03/27/2020 9:59 Results for PM DEPUTY CHIEF SHERIFF this procedure are in the results section. PHOSPHORUS STAT Add-On 03/27/2020 9:59 Results for PM DEPUTY CHIEF SHERIFF this procedure are in the results section. POCT GLUCOSE Routine 03/27/2020 7:56 Results for (AUTOMATED) PM DEPUTY CHIEF SHERIFF this procedure are in the results section. POCT GLUCOSE Routine 03/27/2020 3:06 Results for (AUTOMATED) PM DEPUTY CHIEF SHERIFF this procedure are in the results section. POCT GLUCOSE Routine 03/27/2020 12:28 Results for (AUTOMATED) PM DEPUTY CHIEF SHERIFF this procedure are in the results section. POCT GLUCOSE Routine 03/27/2020 8:00 Results for (AUTOMATED) AM DEPUTY CHIEF SHERIFF this procedure are in the results section. CBC WITH DIFF ABDIAS 03/27/2020 4:38 Results fo r AM DEPUTY CHIEF SHERIFF this procedure are in the results section. BASIC METABOLIC PANEL ABDIAS 03/27/2020 4:38 Re sults for (NA, K, CL, CO2, AM DEPUTY CHIEF SHERIFF this proced ure GLUCOSE, BUN, are in the CREATININE, CA) results section. MAGNESIUM ABDIAS 03/27/2020 4:38 Results for AM DEPUTY CHIEF SHERIFF this procedure are in the results section. PHOSPHORUS ABDIAS 03/27/2020 4:38 Results for AM DEPUTY CHIEF SHERIFF this procedure are in the results section. POCT GLUCOSE Routine 03/27/2020 4:37 Results for (AUTOMATED) AM DEPUTY CHIEF SHERIFF this procedure are in the results section. POCT GLUCOSE Routine 03/26/2020 11:09 Results for (AUTOMATED) PM DEPUTY CHIEF SHERIFF this procedure are in the results section. POCT GLUCOSE Routine 03/26/2020 8:27 Results for (AUTOMATED) PM DEPUTY CHIEF SHERIFF this procedure are in the results section. POCT GLUCOSE Routine 03/26/2020 5:09 Results for (AUTOMATED) PM DEPUTY CHIEF SHERIFF this procedure are in the results section. POCT GLUCOSE Routine 03/26/2020 12:19 Results for (AUTOMATED) PM DEPUTY CHIEF SHERIFF this procedure are in the results section. PREPARE PACKED RBC Routine 03/26/2020 8:23 Resul ts for AM DEPUTY CHIEF SHERIFF this procedure are in the results section. POCT GLUCOSE Routine 03/26/2020 8:18 Results for (AUTOMATED) AM DEPUTY CHIEF SHERIFF this procedure are in the results section. POCT GLUCOSE Routine 03/26/2020 6:45 Results for (AUTOMATED) AM DEPUTY CHIEF SHERIFF this procedure are in the results section. XR CHEST 1 VW ABDIAS 03/26/2020 6:44 S/P CABG (coronary Resu lts for AM DEPUTY CHIEF SHERIFF artery bypass this procedure graft) are in the results section. POCT GLUCOSE Routine 03/26/2020 5:43 Results for (AUTOMATED) AM DEPUTY CHIEF SHERIFF this procedure are in the results section. ABG+COOX+NA+K+GLU+CA2 ABDIAS 03/26/2020 4:03 Re sults for + AM DEPUTY CHIEF SHERIFF this procedure are in the results section. CBC WITH DIFF ABDIAS 03/26/2020 4:03 Results fo r AM DEPUTY CHIEF SHERIFF this procedure are in the results section. BASIC METABOLIC PANEL [facility] 03/26/2020 4:03 Re sults for (NA, K, CL, CO2, AM DEPUTY CHIEF SHERIFF this proced ure GLUCOSE, BUN, are in the CREATININE, CA) results section. MAGNESIUM Add-on 03/26/2020 4:03 Results for AM DEPUTY CHIEF SHERIFF this procedure are in the results section. PHOSPHORUS Add-on 03/26/2020 4:03 Results for AM DEPUTY CHIEF SHERIFF this procedure are in the results section. POCT GLUCOSE Routine 03/26/2020 4:02 Results for (AUTOMATED) AM DEPUTY CHIEF SHERIFF this procedure are in the results section. POCT GLUCOSE Routine 03/26/2020 3:01 Results for (AUTOMATED) AM DEPUTY CHIEF SHERIFF this procedure are in the results section. POCT GLUCOSE Routine 03/26/2020 2:01 Results for (AUTOMATED) AM DEPUTY CHIEF SHERIFF this procedure are in the results section. POCT GLUCOSE Routine 03/26/2020 12:31 Results for (AUTOMATED) AM DEPUTY CHIEF SHERIFF this procedure are in the results section. ABG+COOX+NA+K+GLU+CA2 Routine 03/26/2020 12:29 Re sults for + AM DEPUTY CHIEF SHERIFF this procedure are in the results section. POCT GLUCOSE Routine 03/25/2020 8:28 Results for (AUTOMATED) PM DEPUTY CHIEF SHERIFF this procedure are in the results section. XR ABDOMEN 1 VW STAT 03/25/2020 8:17 S/P CABG (coronary Re sults for PM DEPUTY CHIEF SHERIFF artery bypass this procedure graft) are in the results section. XR CHEST 1 VW STAT 03/25/2020 8:16 S/P CABG (coronary Resu lts for PM DEPUTY CHIEF SHERIFF artery bypass this procedure graft) are in the results section. MRSA / MSSA SCREEN BY Routine 03/25/2020 7:52 Re sults for PCR, NARES PM DEPUTY CHIEF SHERIFF this procedure are in the results section. ABG+COOX+NA+K+GLU+CA2 Routine 03/25/2020 7:52 Re sults for + PM DEPUTY CHIEF SHERIFF this procedure are in the results section. CBC WITH DIFF Routine 03/25/2020 7:52 Results fo r PM DEPUTY CHIEF SHERIFF this procedure are in the results section. BASIC METABOLIC PANEL Routine 03/25/2020 7:52 Re sults for (NA, K, CL, CO2, PM DEPUTY CHIEF SHERIFF this proced ure GLUCOSE, BUN, are in the CREATININE, CA) results section. TRANSFUSE PLATELETS ABDIAS 03/25/2020 7:11 (IN ML) PM DEPUTY CHIEF SHERIFF PREPARE PLATELETS STAT 03/25/2020 7:08 Result s for PM DEPUTY CHIEF SHERIFF this procedure are in the results section. POCT ACT HIGH RANGE Routine 03/25/2020 6:28 Resu lts for PM DEPUTY CHIEF SHERIFF this procedure are in the results section. POCT ACT HIGH RANGE Routine 03/25/2020 5:41 Resu lts for PM DEPUTY CHIEF SHERIFF this procedure are in the results section. POCT ACT HIGH RANGE Routine 03/25/2020 5:19 Resu lts for PM DEPUTY CHIEF SHERIFF this procedure are in the results section. POCT ACT HIGH RANGE Routine 03/25/2020 5:04 Resu lts for PM DEPUTY CHIEF SHERIFF this procedure are in the results section. POCT ACT HIGH RANGE Routine 03/25/2020 4:53 Resu lts for PM DEPUTY CHIEF SHERIFF this procedure are in the results section. POCT ACT HIGH RANGE Routine 03/25/2020 4:35 Resu lts for PM DEPUTY CHIEF SHERIFF this procedure are in the results section. POCT ACT HIGH RANGE Routine 03/25/2020 4:11 Resu lts for PM DEPUTY CHIEF SHERIFF this procedure are in the results section. POCT ACT HIGH RANGE Routine 03/25/2020 3:32 Resu lts for PM DEPUTY CHIEF SHERIFF this procedure are in the results section. POCT ACT HIGH RANGE Routine 03/25/2020 1:50 Resu lts for PM DEPUTY CHIEF SHERIFF this procedure are in the results section. 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 BASIC METABOLIC PANEL Routine 03/25/2020 3:53 Re sults for (NA, K, CL, CO2, AM DEPUTY CHIEF SHERIFF this proced ure GLUCOSE, BUN, are in the CREATININE, CA) results section. MAGNESIUM Routine 03/25/2020 3:53 Results for AM DEPUTY CHIEF SHERIFF this procedure are in the results section. POCT GLUCOSE Routine 03/24/2020 9:16 Results for (AUTOMATED) PM DEPUTY CHIEF SHERIFF this procedure are in the results section. POCT GLUCOSE Routine 03/24/2020 5:14 Results for (AUTOMATED) PM DEPUTY CHIEF SHERIFF this procedure are in the results section. URINE CULTURE STAT 03/24/2020 3:53 Results fo r PM DEPUTY CHIEF SHERIFF this procedure are in the results section. URINALYSIS STAT 03/24/2020 3:53 Results for PM DEPUTY CHIEF SHERIFF this procedure are in the results section. HB ABO GROUPING Routine 03/24/2020 12:10 Results for PM DEPUTY CHIEF SHERIFF this procedure are in the results section. POCT GLUCOSE Routine 03/24/2020 11:06 Results for (AUTOMATED) AM DEPUTY CHIEF SHERIFF this procedure are in the results section. POCT GLUCOSE Routine 03/24/2020 8:06 Results for (AUTOMATED) AM DEPUTY CHIEF SHERIFF this procedure are in the results section. BASIC METABOLIC PANEL Routine 03/24/2020 4:07 Re sults for (NA, K, CL, CO2, AM DEPUTY CHIEF SHERIFF this proced ure GLUCOSE, BUN, are in the CREATININE, CA) results section. MAGNESIUM Routine 03/24/2020 4:07 Results for AM DEPUTY CHIEF SHERIFF this procedure are in the results section. POCT GLUCOSE Routine 03/23/2020 8:12 Results for (AUTOMATED) PM CDT this procedure are in the results section. POCT GLUCOSE Routine 03/23/2020 5:14 Results for (AUTOMATED) PM CDT this procedure are in the results section. POCT GLUCOSE Routine 03/23/2020 1:43 Results for (AUTOMATED) PM CDT this procedure are in the results section. BASIC METABOLIC PANEL Routine 03/23/2020 4:59 Re sults for (NA, K, CL, CO2, AM CDT this proced ure GLUCOSE, BUN, are in the CREATININE, CA) results section. MAGNESIUM Routine 03/23/2020 4:59 Results for AM CDT this procedure are in the results section. POCT GLUCOSE Routine 03/22/2020 8:58 Results for (AUTOMATED) PM CDT this procedure are in the results section. POCT GLUCOSE Routine 03/22/2020 6:07 Results for (AUTOMATED) PM CDT this procedure are in the results section. LAB ONLY COVID Routine 03/22/2020 5:00 Results f or INTERPRETATION PM CDT this procedur e are in the results section. COVID-19 (ID NOW Routine 03/22/2020 5:00 Results for RAPID TESTING) PM CDT this procedur e are in the results section. POCT GLUCOSE Routine 03/22/2020 8:57 Results for (AUTOMATED) AM CDT this procedure are in the results section. BASIC METABOLIC PANEL Routine 03/22/2020 4:21 Re sults for (NA, K, CL, CO2, AM CDT this proced ure GLUCOSE, BUN, are in the CREATININE, CA) results section. MAGNESIUM Routine 03/22/2020 4:21 Results for AM CDT this procedure are in the results section. POCT GLUCOSE Routine 03/21/2020 8:41 Results for (AUTOMATED) PM CDT this procedure are in the results section. POCT GLUCOSE Routine 03/21/2020 5:02 Results for (AUTOMATED) PM CDT this procedure are in the results section. POCT GLUCOSE Routine 03/21/2020 2:02 Results for (AUTOMATED) PM CDT this procedure are in the results section. POCT GLUCOSE Routine 03/21/2020 8:33 Results for (AUTOMATED) AM CDT this procedure are in the results section. BASIC METABOLIC PANEL Routine 03/21/2020 4:54 Re sults for (NA, K, CL, CO2, AM CDT this proced ure GLUCOSE, BUN, are in the CREATININE, CA) results section. MAGNESIUM Routine 03/21/2020 4:54 Results for AM CDT this procedure are in the results section. POCT GLUCOSE Routine 03/20/2020 8:56 Results for (AUTOMATED) PM CDT this procedure are in the results section. POCT GLUCOSE Routine 03/20/2020 6:11 Results for (AUTOMATED) PM CDT this procedure are in the results section. POCT GLUCOSE Routine 03/20/2020 2:51 Results for (AUTOMATED) PM CDT this procedure are in the results section. URINALYSIS Routine 03/20/2020 2:01 Results for PM CDT this procedure are in the results section. URINE CULTURE Routine 03/20/2020 1:59 Results fo r PM CDT this procedure are in the results section. CAROTID DUPLEX Routine 03/20/2020 1:50 BILATERAL BY VASCULAR PM CDT LAB POCT GLUCOSE Routine 03/20/2020 10:26 Results for (AUTOMATED) AM CDT this procedure are in the results section. XR CHEST 2 VW Routine 03/20/2020 8:30 Shortness of Results fo r AM CDT breath this procedure are in the results section. EKG-12 LEAD Routine 03/20/2020 7:39 AM CDT CBC WITH DIFF Routine 03/20/2020 4:21 Results fo r AM CDT this procedure are in the results section. BASIC METABOLIC PANEL Routine 03/20/2020 4:21 Re sults for (NA, K, CL, CO2, AM CDT this proced ure GLUCOSE, BUN, are in the CREATININE, CA) results section. MAGNESIUM Routine 03/20/2020 4:21 Results for AM CDT this procedure are in the results section. POCT GLUCOSE Routine 03/19/2020 8:27 Results for (AUTOMATED) PM CDT this procedure are in the results section. ACTIVATED PARTIAL ABDIAS 03/19/2020 8:14 Result s for THRMPLAS DAGOBERTO PM CDT this procedure are in the results section. POCT GLUCOSE Routine 03/19/2020 8:10 Results for (AUTOMATED) PM CDT this procedure are in the results section. POCT GLUCOSE Routine 03/19/2020 4:44 Results for (AUTOMATED) PM CDT this procedure are in the results section. HEPATITIS B SURFACE ABDIAS 03/19/2020 3:43 Resu lts for ANTIBODY PM CDT this procedure are in the results section. ACTIVATED PARTIAL ABDIAS 03/19/2020 3:11 Result s for THRMPLAS DAGOBERTO PM CDT this procedure are in the results section. CBC WITH DIFF ABDIAS 03/19/2020 3:11 Results fo r PM CDT this procedure are in the results section. BASIC METABOLIC PANEL ABDIAS 03/19/2020 3:11 Re sults for (NA, K, CL, CO2, PM CDT this proced ure GLUCOSE, BUN, are in the CREATININE, CA) results section. CORONARY ANGIOGRAPHY Routine 03/19/2020 10:04 AM CDT ACTIVATED PARTIAL ABDIAS 03/19/2020 4:34 Result s for THRMPLAS DAGOBERTO AM CDT this procedure are in the results section. ACTIVATED PARTIAL ABDIAS 03/18/2020 8:03 Result s for THRMPLAS DAGOBERTO PM CDT this procedure are in the results section. TROPONIN I ABDIAS 03/18/2020 8:03 Results for PM CDT this procedure are in the results section. URINALYSIS STAT 03/18/2020 4:24 Shortness of Results for PM CDT breath this procedure are in the results section. HEPATITIS B SURFACE Add-on 03/18/2020 1:22 Resu lts for ANTIGEN PM CDT this procedure are in the results section. TROPONIN I ABDIAS 03/18/2020 1:22 Results for PM CDT this procedure are in the results section. ACTIVATED PARTIAL ABDIAS 03/18/2020 11:11 Result s for THRMPLAS DAGOBERTO AM CDT this procedure are in the results section. UNILATERAL DUPLEX Routine 03/18/2020 10:31 SCAN UPPER EXTREMITY AM CDT ARTERIAL BY VASC LAB ECHO ROUTINE STAT 03/18/2020 9:20 Acute on chronic W/DOPPLER COLOR AM CDT heart failure, unspecified heart failure type POCT GLUCOSE Routine 03/18/2020 7:38 Results for (AUTOMATED) AM CDT this procedure are in the results section. EKG-12 LEAD Routine 03/18/2020 6:10 AM CDT ACTIVATED PARTIAL ABDIAS 03/18/2020 2:50 Result s for THRMPLAS DAGOBERTO AM CDT this procedure are in the results section. CBC WITH DIFF ABDIAS 03/18/2020 2:50 Results fo r AM CDT this procedure are in the results section. BASIC METABOLIC PANEL ABDIAS 03/18/2020 2:50 Re sults for (NA, K, CL, CO2, AM CDT this proced ure GLUCOSE, BUN, are in the CREATININE, CA) results section. TROPONIN I ABDIAS 03/18/2020 2:50 Results for AM CDT this procedure are in the results section. ACTIVATED PARTIAL ABDIAS 2020 5:52 Result s for THRMPLAS DAGOBERTO PM CDT this procedure are in the results section. TROPONIN I Routine 2020 5:52 Results for PM CDT this procedure are in the results section. ACUTE CARE ARTERIAL Routine 2020 2:58 Resu lts for BLOOD GAS PM CDT this procedure are in the results section. MRSA / MSSA SCREEN BY Routine 2020 11:22 Re sults for PCR, NARES AM CDT this procedure are in the results section. GLYCOSYLATED Routine 2020 11:18 Results for HEMOGLOBIN (A1C) AM CDT this proced ure are in the results section. LIPID PANEL Routine 2020 11:18 Results for (08136)(TOTAL AM CDT this procedure CHOLESTEROL, are in the TRIGLYCERIDES, HDL) results section. HEPATIC FUNCTION Routine 2020 11:18 Results for PANEL (69409) AM CDT this procedure (ALB,T.PRO,BILI are in the T,BU/BC,ALT,AST,ALK results PHOS) section. TROPONIN I Routine 2020 11:18 Results for AM CDT this procedure are in the results section. EKG-12 LEAD Routine 2020 9:02 AM CDT LAB ONLY COVID Routine 2020 8:52 Shortness of Results f or INTERPRETATION AM CDT breath this procedur e are in the results section. COVID-19 (ID NOW STAT 2020 8:52 Shortness of Results for RAPID TESTING) AM CDT breath this procedur e are in the results section. XR CHEST 1 VW STAT 2020 8:50 Shortness of Results fo r AM CDT breath this procedure are in the results section. N-TERMINAL PRO-BNP STAT 2020 8:45 Shortness of Resul ts for AM CDT breath this procedure are in the results section. ACTIVATED PARTIAL STAT 2020 8:45 Shortness of Result s for THRMPLAS DAGOBETRO AM CDT breath this procedure are in the results section. PROTHROMBIN TIME / STAT 2020 8:45 Shortness of Resul ts for INR AM CDT breath this procedure are in the results section. CBC WITH DIFF STAT 2020 8:45 Shortness of Results fo r AM CDT breath this procedure are in the results section. BASIC METABOLIC PANEL STAT 2020 8:45 Shortness of Re sults for (NA, K, CL, CO2, AM CDT breath this proced ure GLUCOSE, BUN, are in the CREATININE, CA) results section. HEPATIC FUNCTION STAT 2020 8:45 Shortness of Results for PANEL (70864) AM CDT breath this procedure (ALB,T.PRO,BILI are in the T,BU/BC,ALT,AST,ALK results PHOS) section. TROPONIN I STAT 2020 8:45 Shortness of Results for AM CDT breath this procedure are in the results section. LIPASE STAT 2020 8:45 Shortness of Results for AM CDT breath this procedure are in the results section. AC PANEL 20 + LACTIC STAT 2020 8:44 Shortness of Res ults for ACID AM CDT breath this procedure are in the results section. EKG-12 LEAD STAT 2020 8:43 AM CDT EKG-12 LEAD Routine 2020 8:34 AM CDT HOSPITAL ADMISSION Routine 2020 12:01 AM CDT DISCLOSURE AND Routine 2020 12:01 CONSENT, MEDICAL AND AM CDT SURGICAL PROCEDURES documented in this encounter Results POCT GLUCOSE (AUTOMATED) (03/29/2020 12:34 PM DEPUTY CHIEF SHERIFF) Pathologist Sig nature POCT GLU 146 (H) 70 - 110 mg/dL [facility] Specimen Blood Performing Organization Address [facility] Phone Number [facility] CLIA: [id number] [place] [address] [phone] [address] [employer] POCT GLUCOSE (AUTOMATED) (03/29/2020 7:54 AM DEPUTY CHIEF SHERIFF) Pathologist Sig nature POCT GLU 161 (H) 70 - 110 mg/dL [facility] Specimen Blood Performing Organization Address [facility] Phone Number [facility] CLIA: [id number] [place] [address] [phone] [address] [employer] POCT GLUCOSE (AUTOMATED) (03/29/2020 3:54 AM DEPUTY CHIEF SHERIFF) Pathologist Sig nature POCT GLU 116 (H) 70 - 110 mg/dL [facility] Specimen Blood Performing Organization Address [facility] Phone Number [facility] CLIA: [id number] [place] [address] [phone] [address] [employer] POCT GLUCOSE (AUTOMATED) (03/29/2020 12:02 AM DEPUTY CHIEF SHERIFF) Pathologist Sig nature POCT GLU 147 (H) 70 - 110 mg/dL [facility] Specimen Blood Performing Organization Address [facility] Phone Number [facility] CLIA: [id number] [place] [address] [phone] [address] [employer] POCT GLUCOSE (AUTOMATED) (03/28/2020 7:33 PM DEPUTY CHIEF SHERIFF) Pathologist Sig nature POCT GLU 104 70 - 110 mg/dL [facility] Specimen Blood Performing Organization Address [facility] Phone Number [facility] CLIA: [id number] [place] [address] [phone] [address] [employer] POCT GLUCOSE (AUTOMATED) (03/28/2020 5:47 PM DEPUTY CHIEF SHERIFF) Pathologist Sig nature POCT GLU 98 70 - 110 mg/dL [facility] Specimen Blood Performing Organization Address City/[facility]/Zipcode Phone Number [facility] CLIA: [id number] [place] [address] [phone] 301 [facility] POCT GLUCOSE (AUTOMATED) (03/28/2020 11:10 AM DEPUTY CHIEF SHERIFF) Pathologist Sig nature POCT GLU 178 (H) 70 - 110 mg/dL [facility] Specimen Blood Performing Organization Address [facility] Phone Number [facility] CLIA: [id number] [place] [address] [phone] 301 [facility] XR CHEST 2 VW (03/28/2020 10:05 AM DEPUTY CHIEF SHERIFF) Specimen Narrative Performed At EXAM: XR CHEST 2 VW PACS/VR/DOSE HISTORY: POD 3 CABG COMPARISON: None. FINDINGS: The endotracheal and nasogastric tubes were removed. T he tip of the right IJ line is in the the superior vena cava . The heart remains slightly enlarged. Pleural fluid or thickening bl unts the left costophrenic angle and obscures the left hemidiaphragm and cardiac apex. The lungs are clear otherwise. Procedure Note [facility], Radiant Results Inft User - 2019 10:21 AM DEPUTY CHIEF SHERIFF EXAM: XR CHEST 2 VW HISTORY: POD 3 CABG COMPARISON: None. FINDINGS: The endotracheal and nasogastric tubes w ere removed. The tip of the right IJ line is in the the superior vena cava . The heart remains slightly enlarged. Pleural fluid or thickening bl unts the left costophrenic angle and obscures the left hemidiaphragm and cardiac apex. The lungs are clear otherwise. Performing Organization Address City/State/[facility] Phone Number PACS/VR/DOSE POCT GLUCOSE (AUTOMATED) (03/28/2020 8:00 AM DEPUTY CHIEF SHERIFF) Pathologist Sig nature POCT GLU 173 (H) 70 - 110 mg/dL [facility] Specimen Blood Performing Organization Address City/[facility] Phone Number [facility] CLIA: [id number] [place] [address] [phone] 301 [facility] PHOSPHORUS (03/28/2020 4:20 AM DEPUTY CHIEF SHERIFF) Pathologist Sig nature PHOSPHORUS 4.1 2.5 - 5.0 mg/dL [facility] Specimen Blood - CENTRAL VENOUS LINE Performing Organization Address City/[facility]/Zipcode Phone Number [facility] CLIA: [id number] [place] [address] [place] [address] MAGNESIUM (03/28/2020 4:20 AM DEPUTY CHIEF SHERIFF) Pathologist Sig nature MAGNESIUM 2.1 1.7 - 2.4 mg/dL [facility] Specimen Blood - CENTRAL VENOUS LINE Performing Organization Address City/[facility] Phone Number [facility] CLIA: [id number] [place] [address] [place] [address] BASIC METABOLIC PANEL (NA, K, CL, CO2, GLUCOSE, BUN, CREATININE, CA) (03/28/2020 4:20 AM DEPUTY CHIEF SHERIFF) NA 134 (L) 135 - 145 [facility] mmol/L SERVICES K 4.5 3.5 - 5.0 [facility] mmol/L SERVICES CL 99 98 - 108 mmol/L [facility] CO2 TOTAL 27 23 - 31 mmol/L [facility] AGAP 8 2 - 16 [facility] BUN 39 (H) 7 - 23 mg/dL [facility] GLUCOSE 135 (H) 70 - 110 mg/dL [facility] CREATININE 5.25 (H) 0.60 - 1.25 [facility] mg/dL SERVICES CALCIUM 8.2 (L) 8.6 - 10.6 [facility] mg/dL SERVICES eGFR Calculation 10.7 mL/min/1.73m2 [facility] (Non- SERVICES [place]) eGFR Calculation 13.0 mL/min/1.73m2 [facility] () SERVICES Specimen Blood - CENTRAL VENOUS LINE Narrative Performed At [employer] of Glomerular Filtration Rate (GFR) and St aging [facility] of Kidney Disease* + + +------- ------ + | GFR (mL/min/1.73 m2) | With Kidney Damage | Wi thout Kidney Damage + + +------- ------ + | >90 | Stage one | Normal + + +------- ------ + | 60-89 | Stage two | Decreased GFR + + +------- ------ + | 30-59 | Stage three | Stage three + + +------- ------ + | 15-29 | Stage four | Stage four + + +------- ------ + | <15 (or dialysis) | Stage five | Stage five + + +------- ------ + *Each stage assumes the associated GFR level has been in effect for at least three months. Stages 1 to 5, wit h or without kidney disease, indicate chronic kidney disease. Notes: Determination of stages one and two (with eGFR >59mL/min/1.73 m2) requires estimation of kidney damag e for at least three months as defined by structural or func tional abnormalities of the kidney, manifested by either: Pathological abnormalities or Markers of kidney damage (including abnormalities in the composition of the blo od or urine or abnormalities in imaging tests) . Performing Organization Address City/State/Zipcode Phone Number [facility] CLIA: [id number] [place] [address] [place] [address] CBC WITH DIFF (03/28/2020 4:20 AM DEPUTY CHIEF SHERIFF) Pathologist Sig nature WBC 8.70 4.20 - 10.70 [facility] 10*3/L SERVICES RBC 2.24 (L) 4.26 - 5.52 [facility] 10*6/L SERVICES HGB 6.9 (L) 12.2 - 16.4 [facility] g/dL SERVICES HCT 20.3 (L) 38.4 - 49.3 % [facility] MCV 90.6 81.7 - 95.6 fL [facility] MCH 30.8 26.1 - 32.7 pg [facility] MCHC 34.0 31.2 - 35.0 [facility] g/dL SERVICES RDW-SD 46.2 38.5 - 51.6 fL [facility] RDW-CV 13.9 12.1 - 15.4 % [facility] PLT 122 (L) 150 - 328 [facility] 10*3/L SERVICES MPV 11.5 9.8 - 13.0 fL [facility] NRBC/100 WBC 0.0 0.0 - 10.0 /100 [facility] WBCs SERVICES NRBC x10^3 <0.01 10*3/L [facility] GRAN MAT (NEUT) % 83.5 % [facility] IMM GRAN % 0.60 % [facility] LYMPH % 7.0 % [facility] MONO % 8.0 % [facility] EOS % 0.7 % [facility] BASO % 0.2 % [facility] GRAN MAT x10^3(ANC) 7.26 (H) 1.99 - 6.95 [facility] 10*3/uL SERVICES IMM GRAN x10^3 0.05 0.00 - 0.06 [facility] 10*3/uL SERVICES LYMPH x10^3 0.61 (L) 1.09 - 3.23 [facility] 10*3/uL SERVICES MONO x10^3 0.70 0.36 - 1.02 [facility] 10*3/uL SERVICES EOS x10^3 0.06 0.06 - 0.53 [facility] 10*3/uL SERVICES BASO x10^3 <0.03 0.01 - 0.09 [facility] 10*3/uL SERVICES Specimen Blood - CENTRAL VENOUS LINE Performing Organization Address City/[facility] Phone Number [facility] CLIA: [id number] [place], [place] [address] [address] [place] [address] POCT GLUCOSE (AUTOMATED) (03/28/2020 4:19 AM DEPUTY CHIEF SHERIFF) Pathologist Sig nature POCT GLU 147 (H) 70 - 110 mg/dL [facility] Specimen Blood Performing Organization Address [facility] Phone Number [facility] CLIA: [id number] [place] [address] [place] [address] POCT GLUCOSE (AUTOMATED) (03/27/2020 11:18 PM DEPUTY CHIEF SHERIFF) Pathologist Sig nature POCT GLU 146 (H) 70 - 110 mg/dL [facility] Specimen Blood Performing Organization Address [facility] Phone Number [facility] CLIA: [id number] [place] [address] [place] [address] PHOSPHORUS (03/27/2020 9:59 PM DEPUTY CHIEF SHERIFF) Pathologist Sig nature PHOSPHORUS 3.3 2.5 - 5.0 mg/dL [facility] Specimen Blood - CENTRAL VENOUS LINE Performing Organization Address City/[facility] Phone Number [facility] CLIA: [id number] [place] [address] [place] [address] MAGNESIUM (03/27/2020 9:59 PM DEPUTY CHIEF SHERIFF) Pathologist Sig nature MAGNESIUM 2.0 1.7 - 2.4 mg/dL [facility] Specimen Blood - CENTRAL VENOUS LINE Performing Organization Address City/State/Zipcode Phone Number [facility] CLIA: [id number] [place] [address] [place] [address] BASIC METABOLIC PANEL (NA, K, CL, CO2, GLUCOSE, BUN, CREATININE, CA) (03/27/2020 9:59 PM DEPUTY CHIEF SHERIFF) NA 133 (L) 135 - 145 [facility] mmol/L SERVICES K 4.1 3.5 - 5.0 [facility] mmol/L SERVICES CL 98 98 - 108 mmol/L [facility] CO2 TOTAL 28 23 - 31 mmol/L [facility] AGAP 7 2 - 16 [facility] BUN 34 (H) 7 - 23 mg/dL [facility] GLUCOSE 171 (H) 70 - 110 mg/dL [facility] CREATININE 4.36 (H) 0.60 - 1.25 [facility] mg/dL SERVICES CALCIUM 8.2 (L) 8.6 - 10.6 [facility] mg/dL SERVICES eGFR Calculation 13.2 mL/min/1.73m2 [facility] (Non- SERVICES [place]) eGFR Calculation 16.1 mL/min/1.73m2 [facility] () SERVICES Specimen Blood - CENTRAL VENOUS LINE Narrative Performed At Association of Glomerular Filtration Rate (GFR) and St aging [facility] of Kidney Disease* + + +------- ------ + | GFR (mL/min/1.73 m2) | With Kidney Damage | Wi thout Kidney Damage + + +------- ------ + | >90 | Stage one | Normal + + +------- ------ + | 60-89 | Stage two | Decreased GFR + + +------- ------ + | 30-59 | Stage three | Stage three + + +------- ------ + | 15-29 | Stage four | Stage four + + +------- ------ + | <15 (or dialysis) | Stage five | Stage five + + +------- ------ + *Each stage assumes the associated GFR level has been in effect for at least three months. Stages 1 to 5, wit h or without kidney disease, indicate chronic kidney disease. Notes: Determination of stages one and two (with eGFR >59mL/min/1.73 m2) requires estimation of kidney damag e for at least three months as defined by structural or func tional abnormalities of the kidney, manifested by either: Pathological abnormalities or Markers of kidney damage (including abnormalities in the composition of the blo od or urine or abnormalities in imaging tests) . Performing Organization Address City/[facility] Phone Number [facility] CLIA: [id number] [place] [address] [phone] 301 [facility] POCT GLUCOSE (AUTOMATED) (03/27/2020 7:56 PM DEPUTY CHIEF SHERIFF) Pathologist Sig nature POCT GLU 143 (H) 70 - 110 mg/dL [facility] Specimen Blood Performing Organization Address [facility] Phone Number [facility] CLIA: [id number] [place] [address] [phone] 301 [facility] POCT GLUCOSE (AUTOMATED) (03/27/2020 3:06 PM DEPUTY CHIEF SHERIFF) Pathologist Sig nature POCT GLU 135 (H) 70 - 110 mg/dL [facility] Specimen Blood Performing Organization Address [facility] Phone Number [facility] CLIA: [id number] [place] [address] [phone] 301 [facility] POCT GLUCOSE (AUTOMATED) (03/27/2020 12:28 PM DEPUTY CHIEF SHERIFF) Pathologist Sig nature POCT GLU 192 (H) 70 - 110 mg/dL [facility] Specimen Blood Performing Organization Address [facility] Phone Number [facility] CLIA: [id number] [place] [address] [phone] 301 [facility] POCT GLUCOSE (AUTOMATED) (03/27/2020 8:00 AM DEPUTY CHIEF SHERIFF) Pathologist Sig nature POCT GLU 154 (H) 70 - 110 mg/dL [facility] Specimen Blood Performing Organization Address [facility] Phone Number [facility] CLIA: [id number] [place] [address] [phone] 301 [facility] PHOSPHORUS (03/27/2020 4:38 AM DEPUTY CHIEF SHERIFF) Pathologist Sig nature PHOSPHORUS 4.7 2.5 - 5.0 mg/dL [facility] Specimen Blood - ARTERIAL Performing Organization Address City/State/Zipcode Phone Number [facility] CLIA: [id number] [place] [address] [place] [address] MAGNESIUM (03/27/2020 4:38 AM DEPUTY CHIEF SHERIFF) Pathologist Sig nature MAGNESIUM 2.5 (H) 1.7 - 2.4 mg/dL [facility] Specimen Blood - ARTERIAL Performing Organization Address [facility]/Zipcode Phone Number [facility] CLIA: [id number] [place] [address] [place] [address] BASIC METABOLIC PANEL (NA, K, CL, CO2, GLUCOSE, BUN, CREATININE, CA) (03/27/2020 4:38 AM DEPUTY CHIEF SHERIFF) NA 133 (L) 135 - 145 [facility] mmol/L SERVICES K 5.5 (H) 3.5 - 5.0 [facility] mmol/L SERVICES CL 102 98 - 108 mmol/L [facility] CO2 TOTAL 20 (L) 23 - 31 mmol/L [facility] AGAP 11 2 - 16 [facility] BUN 52 (H) 7 - 23 mg/dL [facility] GLUCOSE 131 (H) 70 - 110 mg/dL [facility] CREATININE 6.86 (H) 0.60 - 1.25 [facility] mg/dL SERVICES CALCIUM 8.1 (L) 8.6 - 10.6 [facility] mg/dL SERVICES eGFR Calculation 7.9 mL/min/1.73m2 [facility] (Non- SERVICES [place]) eGFR Calculation 9.5 mL/min/1.73m2 [facility] () SERVICES Specimen Blood - ARTERIAL Narrative Performed At Association of Glomerular Filtration Rate (GFR) and St aging [facility] of Kidney Disease* + + +------- ------ + | GFR (mL/min/1.73 m2) | With Kidney Damage | Wi thout Kidney Damage + + +------- ------ + | >90 | Stage one | Normal + + +------- ------ + | 60-89 | Stage two | Decreased GFR + + +------- ------ + | 30-59 | Stage three | Stage three + + +------- ------ + | 15-29 | Stage four | Stage four + + +------- ------ + | <15 (or dialysis) | Stage five | Stage five + + +------- ------ + *Each stage assumes the associated GFR level has been in effect for at least three months. Stages 1 to 5, wit h or without kidney disease, indicate chronic kidney disease. Notes: Determination of stages one and two (with eGFR >59mL/min/1.73 m2) requires estimation of kidney damag e for at least three months as defined by structural or func tional abnormalities of the kidney, manifested by either: Pathological abnormalities or Markers of kidney damage (including abnormalities in the composition of the blo od or urine or abnormalities in imaging tests) . Performing Organization Address City/State/Zipcode Phone Number [facility] CLIA: [id number] [place] [address] [place] [address] CBC WITH DIFF (03/27/2020 4:38 AM DEPUTY CHIEF SHERIFF) Pathologist Sig nature WBC 10.11 4.20 - 10.70 [facility] 10*3/L SERVICES RBC 2.30 (L) 4.26 - 5.52 [facility] 10*6/L SERVICES HGB 7.0 (L) 12.2 - 16.4 [facility] g/dL SERVICES HCT 20.9 (L) 38.4 - 49.3 % [facility] MCV 90.9 81.7 - 95.6 fL [facility] MCH 30.4 26.1 - 32.7 pg [facility] MCHC 33.5 31.2 - 35.0 [facility] g/dL SERVICES RDW-SD 47.4 38.5 - 51.6 fL [facility] RDW-CV 14.2 12.1 - 15.4 % [facility] PLT 124 (L) 150 - 328 [facility] 10*3/L SERVICES MPV 11.5 9.8 - 13.0 fL [facility] NRBC/100 WBC 0.0 0.0 - 10.0 /100 [facility] WBCs SERVICES NRBC x10^3 <0.01 10*3/L [facility] GRAN MAT (NEUT) % 82.7 % [facility] IMM GRAN % 0.50 % [facility] LYMPH % 6.9 % [facility] MONO % 9.3 % [facility] EOS % 0.5 % [facility] BASO % 0.1 % [facility] GRAN MAT x10^3(ANC) 8.36 (H) 1.99 - 6.95 [facility] 10*3/uL SERVICES IMM GRAN x10^3 0.05 0.00 - 0.06 [facility] 10*3/uL SERVICES LYMPH x10^3 0.70 (L) 1.09 - 3.23 [facility] 10*3/uL SERVICES MONO x10^3 0.94 0.36 - 1.02 [facility] 10*3/uL SERVICES EOS x10^3 0.05 (L) 0.06 - 0.53 [facility] 10*3/uL SERVICES BASO x10^3 <0.03 0.01 - 0.09 [facility] 10*3/uL SERVICES Specimen Blood - ARTERIAL Performing Organization Address City/[facility] Phone Number [facility] CLIA: [id number] [place] [address] [phone] 301 [facility] POCT GLUCOSE (AUTOMATED) (03/27/2020 4:37 AM DEPUTY CHIEF SHERIFF) Pathologist Sig nature POCT GLU 145 (H) 70 - 110 mg/dL [facility] Specimen Blood Performing Organization Address City/[facility] Phone Number [facility] CLIA: [id number] [place] [address] [phone] 301 [facility] POCT GLUCOSE (AUTOMATED) (03/26/2020 11:09 PM DEPUTY CHIEF SHERIFF) Pathologist Sig nature POCT GLU 177 (H) 70 - 110 mg/dL [facility] Specimen Blood Performing Organization Address [facility] Phone Number [facility] CLIA: [id number] [place] [address] [place] [address] POCT GLUCOSE (AUTOMATED) (03/26/2020 8:27 PM DEPUTY CHIEF SHERIFF) Pathologist Sig nature POCT GLU 220 (H) 70 - 110 mg/dL [facility] Specimen Blood Performing Organization Address [facility] Phone Number [facility] CLIA: [id number] [place] [address] [phone] 301 [facility] POCT GLUCOSE (AUTOMATED) (03/26/2020 5:09 PM DEPUTY CHIEF SHERIFF) Pathologist Sig nature POCT GLU 222 (H) 70 - 110 mg/dL [facility] Specimen Blood Performing Organization Address City/[facility]/Zipcode Phone Number [facility] CLIA: [id number] [place] [address] [place] [address] POCT GLUCOSE (AUTOMATED) (03/26/2020 12:19 PM DEPUTY CHIEF SHERIFF) Pathologist [facility] [place] navdeep POCT GLU 130 (H) 70 - 110 mg/dL [facility] Specimen Blood Performing Organization Address City/[facility]/Zipcode Phone Number [facility] CLIA: [id number] [place] [address] [place] [address] Prepare Packed RBC (in units), 4 Units (03/26/2020 8:23 AM DEPUTY CHIEF SHERIFF) Pathologist [facility] Cross Match Result Compatible LAB ISBT Blood Type Code 6200 LAB Unit Blood Type A Pos LAB Unit Number [id number] LAB Blood Expiration Date & LAB Time Status Information Released LAB Product Identification Red Blood Cells LAB Product Code [id number] LAB Comment: Performed at [facility] Laboratory Services [place] [address] Toll Free: CLIA No. [id number] Cross Match Result Compatible LAB ISBT Blood Type Code 6200 LAB Unit Blood Type A Pos LAB Unit Number [id number] LAB Blood Expiration Date & LAB Time Status Information Released LAB Product Identification Red Blood Cells LAB Product Code [id number] LAB Comment: Performed at [facility] Laboratory Services [place] [address] Toll Free: CLIA No. [id number] Cross Match Result Compatible LAB ISBT Blood Type Code 6200 LAB Unit Blood Type A Pos LAB Unit Number [id number] LAB Blood Expiration Date & LAB Time Status Information Issued LAB Product Identification Red Blood Cells LAB Product Code [id number] LAB Comment: Performed at [facility] Laboratory Services [place] [address] Toll Free: CLIA No. [id number] Cross Match Result Compatible LAB ISBT Blood Type Code 6200 LAB Unit Blood Type A Pos LAB Unit Number [id number] LAB Blood Expiration Date & LAB Time Status Information Returned from Issue LAB Product Identification Red Blood Cells LAB Product Code [id number] LAB Comment: Performed at [facility] Laboratory Services - [facility] Blood Bank [address] [place] [address] Toll Free: [phone] CLIA No. [id number] Specimen Performing Organization Address City/[facility]/Zipcode Phone Number [facility] LAB POCT GLUCOSE (AUTOMATED) (03/26/2020 8:18 AM DEPUTY CHIEF SHERIFF) Pathologist [facility] POCT GLU 97 70 - 110 mg/dL [facility] Specimen Blood Performing Organization Address City/[facility] Phone Number [facility] CLIA: [id number] [place] [address] [place] [address] POCT GLUCOSE (AUTOMATED) (03/26/2020 6:45 AM DEPUTY CHIEF SHERIFF) Pathologist Sig nature POCT GLU 117 (H) 70 - 110 mg/dL [facility] Specimen Blood Performing Organization Address [facility] Phone Number [facility] CLIA: [id number] [place] [address] [place] [address] Chest 1 View (03/26/2020 6:44 AM DEPUTY CHIEF SHERIFF) Specimen Narrative Performed At EXAM: XR CHEST 1 VW PACS/VR/DOSE HISTORY: s/p open heart surgery COMPARISON: None. FINDINGS: The tip of the endotracheal tube is at the level of th e arch of the aorta, unchanged, and a nasogastric tube passes through the thorax and into the stomach. The tip of the Stevinson-Kenji catheter is in the o utflow tract of the right ventricle. A mediastinal drain and left chest tu be are unchanged. The heart remains slightly enlarged. The lef t hemidiaphragm is slightly elevated and basilar atelectasis is suspected behind t he heart. Mild hilar vascular congestion is present but the lungs are clear otherwise except as noted. An old rib fracture is present on the right. Procedure Note Rust, Radiant Results Inft User - 2019 9:08 AM DEPUTY CHIEF SHERIFF EXAM: XR CHEST 1 VW HISTORY: s/p open heart surgery COMPARISON: None. FINDINGS: The tip of the endotracheal tube is at t he level of the arch of the aorta, unchanged, and a nasogastric tube passes through the thorax and into the stomach. The tip of the Stevinson-Kenji cathet er is in the outflow tract of the right ventricle. A mediastinal drain and left chest tube are unchanged. The heart remains slightly enlarged. The lef t hemidiaphragm is slightly elevated and basilar atelectasis is susp ected behind the heart. Mild hilar vascular congestion is present but the l ungs are clear otherwise except as noted. An old rib fracture is present on the right. Performing Organization Address City/[facility]/Zipcode Phone Number PACS/VR/DOSE POCT GLUCOSE (AUTOMATED) (03/26/2020 5:43 AM DEPUTY CHIEF SHERIFF) Pathologist Sig [facility] POCT GLU 143 (H) 70 - 110 mg/dL [facility] Specimen Blood Performing Organization Address [facility] Phone Number [facility] CLIA: [id number] [place] [address] [place] [address] PHOSPHORUS (03/26/2020 4:03 AM DEPUTY CHIEF SHERIFF) Pathologist Sig nature PHOSPHORUS 3.1 2.5 - 5.0 mg/dL [facility] Specimen Blood - ARTERIAL Performing Organization Address [facility] Phone Number [facility] CLIA: [id number] [place] [address] [place] [address] MAGNESIUM (03/26/2020 4:03 AM DEPUTY CHIEF SHERIFF) Pathologist Sig nature MAGNESIUM 2.4 1.7 - 2.4 mg/dL [facility] Specimen Blood - ARTERIAL Performing Organization Address [facility] Phone Number [facility] CLIA: [id number] [place] [address] [place] [address] ABG+COOX+NA+K+GLU+CA2+ (03/26/2020 4:03 AM DEPUTY CHIEF SHERIFF) Pathologist Sig nature PH 7.43 7.35 - 7.45 [facility] PCO2 30 (L) 35 - 45 mmHg [facility] PO2 122 (H) 80 - 100 mmHg [facility] HCO3 20 (L) 22 - 26 mEq/L [facility] BE -4.1 (L) -3.0 - 3.0 mEq/L [facility] THB 9.7 (L) 13.5 - 18.0 g/dL [facility] %O2HB 97.8 94.0 - 99.0 % [facility] %COHB ART 0.1 0.0 - 1.5 % [facility] %METHB ART 0.3 (L) 0.4 - 1.5 % [facility] VOL%O2 ART 13.6 (L) 15.0 - 23.0 % [facility] NA 133 (L) 135 - 145 mmol/L [facility] K+ 4.5 3.5 - 5.0 mmol/L [facility] AC CA IONZ 4.40 (L) 4.50 - 5.30 mg/dL [facility] SERVICE S GLUCOSE 163 (H) 70 - 110 mg/dL [facility] Specimen Blood - ARTERIAL Performing Organization Address City/State/Zipcode Phone Number [facility] CLIA: [id number] [place] [address] [place] [address] Basic Metabolic Panel (NA, K, CL, CO2, GLUCOSE, BUN, CREATININE, CA) (03/26/2020 4:03 AM DEPUTY CHIEF SHERIFF) NA 137 135 - 145 [facility] mmol/L SERVICES K 4.6 3.5 - 5.0 [facility] mmol/L SERVICES CL 105 98 - 108 mmol/L [facility] CO2 TOTAL 21 (L) 23 - 31 mmol/L [facility] AGAP 11 2 - 16 [facility] BUN 35 (H) 7 - 23 mg/dL [facility] GLUCOSE 163 (H) 70 - 110 mg/dL [facility] CREATININE 4.73 (H) 0.60 - 1.25 [facility] mg/dL SERVICES CALCIUM 7.7 (L) 8.6 - 10.6 [facility] mg/dL SERVICES eGFR Calculation 12.1 mL/min/1.73m2 [facility] (Non- SERVICES [place]) eGFR Calculation 14.6 mL/min/1.73m2 [facility] () SERVICES Specimen Blood - ARTERIAL Narrative Performed At Association of Glomerular Filtration Rate (GFR) and St aging [facility] of Kidney Disease* + + +------- ------ + | GFR (mL/min/1.73 m2) | With Kidney Damage | Wi thout Kidney Damage + + +------- ------ + | >90 | Stage one | Normal + + +------- ------ + | 60-89 | Stage two | Decreased GFR + + +------- ------ + | 30-59 | Stage three | Stage three + + +------- ------ + | 15-29 | Stage four | Stage four + + +------- ------ + | <15 (or dialysis) | Stage five | Stage five + + +------- ------ + *Each stage assumes the associated GFR level has been in effect for at least three months. Stages 1 to 5, wit h or without kidney disease, indicate chronic kidney disease. Notes: Determination of stages one and two (with eGFR >59mL/min/1.73 m2) requires estimation of kidney damag e for at least three months as defined by structural or func tional abnormalities of the kidney, manifested by either: Pathological abnormalities or Markers of kidney damage (including abnormalities in the composition of the blo od or urine or abnormalities in imaging tests) . Performing Organization Address City/State/Zipcode Phone Number [facility] CLIA: [id number] [place] [address] [place] [address] CBC with Differential (03/26/2020 4:03 AM DEPUTY CHIEF SHERIFF) Pathologist Sig nature WBC 10.95 (H) 4.20 - 10.70 [facility] 10*3/L SERVICES RBC 2.67 (L) 4.26 - 5.52 [facility] 10*6/L SERVICES HGB 8.3 (L) 12.2 - 16.4 [facility] g/dL SERVICES HCT 23.2 (L) 38.4 - 49.3 % [facility] MCV 86.9 81.7 - 95.6 fL [facility] MCH 31.1 26.1 - 32.7 pg [facility] MCHC 35.8 (H) 31.2 - 35.0 [facility] g/dL SERVICES RDW-SD 42.8 38.5 - 51.6 fL [facility] RDW-CV 13.5 12.1 - 15.4 % [facility] PLT 150 150 - 328 [facility] 10*3/L SERVICES MPV 11.4 9.8 - 13.0 fL [facility] NRBC/100 WBC 0.0 0.0 - 10.0 /100 [facility] WBCs SERVICES NRBC x10^3 <0.01 10*3/L [facility] GRAN MAT (NEUT) % 88.7 % [facility] SERVICES IMM GRAN % 0.50 % [facility] LYMPH % 4.6 % [facility] MONO % 6.1 % [facility] EOS % 0.0 % [facility] BASO % 0.1 % [facility] GRAN MAT x10^3(ANC) 9.71 (H) 1.99 - 6.95 [facility] 10*3/uL SERVICES IMM GRAN x10^3 0.06 0.00 - 0.06 [facility] 10*3/uL SERVICES LYMPH x10^3 0.50 (L) 1.09 - 3.23 [facility] 10*3/uL SERVICES MONO x10^3 0.67 0.36 - 1.02 [facility] 10*3/uL SERVICES EOS x10^3 <0.03 (L) 0.06 - 0.53 [facility] 10*3/uL SERVICES BASO x10^3 <0.03 0.01 - 0.09 [facility] 10*3/uL SERVICES Specimen Blood - ARTERIAL Performing Organization Address City/[facility]/Zipcode Phone Number [facility] CLIA: [id number] [place], [place] [address] [address] [place] [address] POCT GLUCOSE (AUTOMATED) (03/26/2020 4:02 AM DEPUTY CHIEF SHERIFF) Pathologist Sig nature POCT GLU 177 (H) 70 - 110 mg/dL [facility] Specimen Blood Performing Organization Address City/[facility]/Zipcode Phone Number [facility] CLIA: [id number] [place] [address] [place] [address] POCT GLUCOSE (AUTOMATED) (03/26/2020 3:01 AM DEPUTY CHIEF SHERIFF) Pathologist Sig nature POCT GLU 194 (H) 70 - 110 mg/dL [facility] Specimen Blood Performing Organization Address City/[facility] Phone Number [facility] CLIA: [id number] [place] [address] [address] [facility] POCT GLUCOSE (AUTOMATED) (03/26/2020 2:01 AM DEPUTY CHIEF SHERIFF) Pathologist Sig nature POCT GLU 203 (H) 70 - 110 mg/dL [facility] Specimen Blood Performing Organization Address City/[facility] Phone Number [facility] CLIA: [id number] [place] [address] [phone] 301 [facility] POCT GLUCOSE (AUTOMATED) (03/26/2020 12:31 AM DEPUTY CHIEF SHERIFF) Pathologist Sig nature POCT GLU 203 (H) 70 - 110 mg/dL [facility] Specimen Blood Performing Organization Address City/[facility] Phone Number [facility] CLIA: [id number] [place] [address] [phone] 301 [facility] ABG+COOX+NA+[id number]+[id number]+CA2+ (03/26/2020 12:29 AM DEPUTY CHIEF SHERIFF) Pathologist Sig nature PH 7.44 7.35 - 7.45 [facility] PCO2 31 (L) 35 - 45 mmHg [facility] PO2 111 (H) 80 - 100 mmHg [facility] HCO3 21 (L) 22 - 26 mEq/L [facility] BE -3.0 -3.0 - 3.0 mEq/L [facility] THB 9.0 (L) 13.5 - 18.0 g/dL [facility] %O2HB 96.8 94.0 - 99.0 % [facility] %COHB ART 0.9 0.0 - 1.5 % [facility] %METHB ART 0.2 (L) 0.4 - 1.5 % [facility] VOL%O2 ART 12.5 (L) 15.0 - 23.0 % [facility] NA 132 (L) 135 - 145 mmol/L [facility] K+ 5.0 3.5 - 5.0 mmol/L [facility] AC CA IONZ 4.40 (L) 4.50 - 5.30 mg/dL [facility] SERVICE S GLUCOSE 191 (H) 70 - 110 mg/dL [facility] Specimen Blood - ARTERIAL Performing Organization Address City/[facility] Phone Number [facility] CLIA: [id number] [place] [address] 301 [facility] POCT GLUCOSE (AUTOMATED) (03/25/2020 8:28 PM DEPUTY CHIEF SHERIFF) Pathologist Sig nature POCT GLU 181 (H) 70 - 110 mg/dL [facility] Specimen Blood Performing Organization Address City/[facility]/Zipcode Phone Number [facility] CLIA: [id number] [place] [address] [place] [address] [place] Abdomen XRay 1 View (03/25/2020 8:17 PM DEPUTY CHIEF SHERIFF) Specimen Impressions Performed At Impression: PACS/VR/DOSE NG tube tip and sidehole are in the stomach. Narrative Performed At Exam: XR ABDOMEN 1 VW PACS/VR/DOSE Clinical History: OGT placement Comparison: 2017 Findings: The visualized lung bases are clear. A nonobstructive bowel gas pattern is seen with no evidence of dilated bowel l oops. Multiple leads, stents, postsurgical changes, sternotomy wires project over th e midline. Bones show degenerative changes. A nonspecific calc ified focus is seen in the right upper quadrant measuring approximately 2 .2 cm, likely a gallstone. Procedure Note [facility], Radiant Results Inft User - 2019 9:18 PM DEPUTY CHIEF SHERIFF Exam: XR ABDOMEN 1 VW Clinical History: OGT placement Comparison: 2017 Findings: The visualized lung bases are clear. A n onobstructive bowel gas pattern is seen with no evidence of dilated bowel l oops. Multiple leads, stents, postsurgical changes, sternotomy wires p roject over the midline. Bones show degenerative changes. A nonspecific calc ified focus is seen in the right upper quadrant measuring approximately 2 .2 cm, likely a gallstone. IMPRESSION Impression: NG tube tip and sidehole are in the stom ach. Performing Organization Address City/State/Zipcode Phone Number PACS/VR/DOSE Chest 1 View (on admission) (03/25/2020 8:16 PM DEPUTY CHIEF SHERIFF) Specimen Impressions Performed At Impression: PACS/VR/DOSE Post surgical changes. No acute infiltra te, pleural effusion, or pneumothorax. Narrative Performed At Exam: XR CHEST 1 VW PACS/VR/DOSE Clinical History: s/p open heart surgery Comparison: March 20, 2020 Findings: Postsurgical changes including sternotom y wires, right-sided pulmonary artery catheter, endotracheal tube which is approximat erasto 4.4 cm from the aric, and NG tube. The cardiomediastin al silhouette is within normal limits for size. Mild perihilar vascular congestion is seen. Low lung volumes with no evidence of an acute inf iltrate, pleural effusion, pneumothorax. Bones and upper abdomen ar e unchanged. Procedure Note [facility], Radiant Results Inft User - 2019 11:38 PM DEPUTY CHIEF SHERIFF Exam: XR CHEST 1 VW Clinical History: s/p open heart surgery Comparison: March 20, 2020 Findings: Postsurgical changes including sternotom y wires, right-sided pulmonary artery catheter, endotracheal tube which is approximately 4.4 cm from the aric, and NG tube. The cardiomediastin al silhouette is within normal limits for size. Mild perihilar vascular congestion is seen. Low lung volumes with no evidence of an acute inf iltrate, pleural effusion, pneumothorax. Bones and upper abdomen ar e unchanged. IMPRESSION Impression: Post surgical changes. No acute infiltra te, pleural effusion, or pneumothorax. Performing Organization Address City/State/Zipcode Phone Number PACS/VR/DOSE ABG+COOX+[id number]+GLU+CA2+ (03/25/2020 7:52 PM DEPUTY CHIEF SHERIFF) [facility] PH 7.39 7.35 - 7.45 [facility] PCO2 27 (L) 35 - 45 mmHg [facility] PO2 91 80 - 100 mmHg [facility] HCO3 16 (L) 22 - 26 mEq/L [facility] BE -8.1 (L) -3.0 - 3.0 mEq/L [facility] THB 7.6 (LL) 13.5 - 18.0 g/dL [facility] %O2HB 95.6 94.0 - 99.0 % [facility] %COHB ART 1.0 0.0 - 1.5 % [facility] %METHB ART 0.1 (L) 0.4 - 1.5 % [facility] VOL%O2 ART 10.4 (L) 15.0 - 23.0 % [facility] NA 131 (L) 135 - 145 mmol/L [facility] K+ 4.9 3.5 - 5.0 mmol/L [facility] AC CA IONZ 4.40 (L) 4.50 - 5.30 mg/dL [facility] S GLUCOSE 187 (H) 70 - 110 mg/dL [facility] Specimen Blood - ARTERIAL Performing Organization Address City/State/Zipcode Phone Number [facility] CLIA: [id number] [place] [address] [place] [address] Basic Metabolic Panel (NA, K, CL, CO2, GLUCOSE, BUN, CREATININE, CA) (03/25/2020 7:52 PM DEPUTY CHIEF SHERIFF) NA 132 (L) 135 - 145 [facility] mmol/L SERVICES K 5.0 3.5 - 5.0 [facility] mmol/L SERVICES CL 106 98 - 108 mmol/L [facility] CO2 TOTAL 20 (L) 23 - 31 mmol/L [facility] AGAP 6 2 - 16 [facility] BUN 29 (H) 7 - 23 mg/dL [facility] GLUCOSE 180 (H) 70 - 110 mg/dL [facility] CREATININE 3.33 (H) 0.60 - 1.25 [facility] mg/dL SERVICES CALCIUM 7.4 (L) 8.6 - 10.6 [facility] mg/dL SERVICES eGFR Calculation 18.1 mL/min/1.73m2 [facility] (Non- SERVICES [place]) eGFR Calculation 21.9 mL/min/1.73m2 [facility] () SERVICES Specimen Blood - ARTERIAL Narrative Performed At Association of Glomerular Filtration Rate (GFR) and St aging [facility] of Kidney Disease* + + +------- ------ + | GFR (mL/min/1.73 m2) | With Kidney Damage | Wi thout Kidney Damage + + +------- ------ + | >90 | Stage one | Normal + + +------- ------ + | 60-89 | Stage two | Decreased GFR + + +------- ------ + | 30-59 | Stage three | Stage three + + +------- ------ + | 15-29 | Stage four | Stage four + + +------- ------ + | <15 (or dialysis) | Stage five | Stage five + + +------- ------ + *Each stage assumes the associated GFR level has been in effect for at least three months. Stages 1 to 5, wit h or without kidney disease, indicate chronic kidney disease. Notes: Determination of stages one and two (with eGFR >59mL/min/1.73 m2) requires estimation of kidney damag e for at least three months as defined by structural or func tional abnormalities of the kidney, manifested by either: Pathological abnormalities or Markers of kidney damage (including abnormalities in the composition of the blo od or urine or abnormalities in imaging tests) . Performing Organization Address City/State/Zipcode Phone Number [facility] CLIA: [id number] [facility] [place] [address] [place] [address] CBC with Differential (03/25/2020 7:52 PM DEPUTY CHIEF SHERIFF) Pathologist Sig nature WBC 7.50 4.20 - 10.70 [facility] 10*3/L SERVICES RBC 2.52 (L) 4.26 - 5.52 [facility] 10*6/L SERVICES HGB 7.8 (L) 12.2 - 16.4 [facility] g/dL SERVICES HCT 22.6 (L) 38.4 - 49.3 % [facility] MCV 89.7 81.7 - 95.6 fL [facility] MCH 31.0 26.1 - 32.7 pg [facility] MCHC 34.5 31.2 - 35.0 [facility] g/dL SERVICES RDW-SD 42.8 38.5 - 51.6 fL [facility] RDW-CV 13.1 12.1 - 15.4 % [facility] PLT 111 (L) 150 - 328 [facility] 10*3/L SERVICES MPV 11.4 9.8 - 13.0 fL [facility] NRBC/100 WBC 0.0 0.0 - 10.0 /100 [facility] WBCs SERVICES NRBC x10^3 <0.01 10*3/L [facility] GRAN MAT (NEUT) % 88.6 % [facility] IMM GRAN % 1.30 % [facility] LYMPH % 4.3 % [facility] MONO % 4.8 % [facility] EOS % 0.9 % [facility] BASO % 0.1 % [facility] GRAN MAT x10^3(ANC) 6.64 1.99 - 6.95 [facility] 10*3/uL SERVICES IMM GRAN x10^3 0.10 (H) 0.00 - 0.06 [facility] 10*3/uL SERVICES LYMPH x10^3 0.32 (L) 1.09 - 3.23 [facility] 10*3/uL SERVICES MONO x10^3 0.36 0.36 - 1.02 [facility] 10*3/uL SERVICES EOS x10^3 0.07 0.06 - 0.53 [facility] 10*3/uL SERVICES BASO x10^3 <0.03 0.01 - 0.09 [facility] 10*3/uL SERVICES Specimen Blood - ARTERIAL Performing Organization Address City/[facility] Phone Number [facility] CLIA: [id number] [place] [address] [place] [address] MRSA / MSSA Screen by PCR, Nares (03/25/2020 7:52 PM DEPUTY CHIEF SHERIFF) Pathologist Sig nature MRSA Screen by PCR, Negative Negative [facility] Nares SERVICES MSSA Screen by PCR, Negative Negative [facility] Nares SERVICES MRSA/MSSA Positive? No No [facility] Specimen Swab - NARES, BOTH SIDES Performing Organization Address [facility] Phone Number [facility] CLIA: [id number] [place] [address] [place] [address] Prepare Platelets (in units): 1 Units~ (03/25/2020 7:08 PM DEPUTY CHIEF SHERIFF) Unit Blood Type B Neg LAB ISBT Blood Type Code 1700 LAB Unit Number [id number] LAB Blood Expiration Date & LAB Time Status Information Issued LAB Product Identification Platelets LAB Product Code [id number] LAB Comment: Performed at [facility] Laboratory Services - [facility] Blood Bank [address] [place] [address] Toll Free: [phone] CLIA No. [id number] Specimen Performing Organization Address City/[facility] Phone Number [facility] LAB POCT ACT HIGH RANGE (03/25/2020 6:28 PM DEPUTY CHIEF SHERIFF) Pathologist Sig nature ACTHR 122 96 - 152 Seconds [facility] Specimen Blood Performing Organization Address [facility] [place] [facility] Phone Number [facility] CLIA: [id number] [place] [address] [place] [address] POCT ACT HIGH RANGE (03/25/2020 5:41 PM DEPUTY CHIEF SHERIFF) Pathologist Sig nature ACTHR 592 (H) 96 - 152 Seconds [facility] Specimen Blood Performing Organization Address City/[facility]/Zipcode Phone Number [facility] CLIA: [id number] [place] [address] POCT ACT HIGH RANGE (03/25/2020 5:19 PM DEPUTY CHIEF SHERIFF) Pathologist Sig nature ACTHR 519 (H) 96 - 152 Seconds [facility] Specimen Blood Performing Organization Address City/[facility] [place] [facility] Phone Number [facility] CLIA: [id number] [place] [address] [phone] POCT ACT HIGH RANGE (03/25/2020 5:04 PM DEPUTY CHIEF SHERIFF) Pathologist Sig nature ACTHR 401 (H) 96 - 152 Seconds [facility] Specimen Blood Performing Organization Address City/[facility] [place] [facility] Phone Number [facility] CLIA: [id number] [place] [address] [facility] [address] POCT ACT HIGH RANGE (03/25/2020 4:53 PM DEPUTY CHIEF SHERIFF) Pathologist Sig nature ACTHR 441 (H) 96 - 152 Seconds [facility] Specimen Blood Performing Organization Address [facility] [place] [facility] Phone Number [facility] CLIA: [id number] [place] [address] [phone] [address] POCT ACT HIGH RANGE (03/25/2020 4:35 PM DEPUTY CHIEF SHERIFF) Pathologist Sig nature ACTHR 441 (H) 96 - 152 Seconds [facility] Specimen Blood Performing Organization Address City/[facility]/Zipcode Phone Number [facility] CLIA: [id number] [place] [address] [phone] POCT ACT HIGH RANGE (03/25/2020 4:11 PM DEPUTY CHIEF SHERIFF) Pathologist Sig nature ACTHR 466 (H) 96 - 152 Seconds [facility] Specimen Blood Performing Organization Address City/[facility]/Zipcode Phone Number [facility] CLIA: [id number] [place] [address] [phone] POCT ACT HIGH RANGE (03/25/2020 3:32 PM DEPUTY CHIEF SHERIFF) Pathologist Sig nature ACTHR 539 (H) 96 - 152 Seconds [facility] Specimen Blood Performing Organization Address City/[facility]/Zipcode Phone Number [facility] CLIA: [id number] [place] [address] [place] [address] POCT ACT HIGH RANGE (03/25/2020 1:50 PM DEPUTY CHIEF SHERIFF) Pathologist Sig nature ACTHR 94 (L) 96 - 152 Seconds [facility] Specimen Blood Performing Organization Address City/[facility] [place] [facility] Phone Number [facility] CLIA: [id number] [place] [address] [place] [address] POCT GLUCOSE (AUTOMATED) (03/25/2020 7:51 AM DEPUTY CHIEF SHERIFF) Pathologist Sig nature POCT GLU 127 (H) 70 - 110 mg/dL [facility] Specimen Blood Performing Organization Address City/[facility] Phone Number [facility] CLIA: [id number] [place] [address] [place] [address] MAGNESIUM (03/25/2020 3:53 AM DEPUTY CHIEF SHERIFF) Pathologist Sig nature MAGNESIUM 2.5 (H) 1.7 - 2.4 mg/dL [facility] Specimen Blood - ARM, RIGHT Performing Organization Address [facility] Phone Number [facility] CLIA: [id number] [place] [address] [place] [address] BASIC METABOLIC PANEL (NA, K, CL, CO2, GLUCOSE, BUN, CREATININE, CA) (03/25/2020 3:53 AM DEPUTY CHIEF SHERIFF) NA 128 (L) 135 - 145 [facility] mmol/L SERVICES K 4.8 3.5 - 5.0 [facility] mmol/L SERVICES CL 88 (L) 98 - 108 mmol/L [facility] SERVICES CO2 TOTAL 25 23 - 31 mmol/L [facility] AGAP 15 2 - 16 [facility] BUN 79 (H) 7 - 23 mg/dL [facility] SERVICES GLUCOSE 126 (H) 70 - 110 mg/dL [facility] CREATININE 8.18 (H) 0.60 - 1.25 [facility] mg/dL SERVICES CALCIUM 9.7 8.6 - 10.6 [facility] mg/dL SERVICES eGFR Calculation 6.4 mL/min/1.73m2 [facility] (Non- SERVICES [place]) eGFR Calculation 7.8 mL/min/1.73m2 [facility] () SERVICES Specimen Blood - ARM, RIGHT Narrative Performed At Association of Glomerular Filtration Rate (GFR) and St aging [facility] of Kidney Disease* + + +------- ------ + | GFR (mL/min/1.73 m2) | With Kidney Damage | Wi thout Kidney Damage + + +------- ------ + | >90 | Stage one | Normal + + +------- ------ + | 60-89 | Stage two | Decreased GFR + + +------- ------ + | 30-59 | Stage three | Stage three + + +------- ------ + | 15-29 | Stage four | Stage four + + +------- ------ + | <15 (or dialysis) | Stage five | Stage five + + +------- ------ + *Each stage assumes the associated GFR level has been in effect for at least three months. Stages 1 to 5, wit h or without kidney disease, indicate chronic kidney disease. Notes: Determination of stages one and two (with eGFR >59mL/min/1.73 m2) requires estimation of kidney damag e for at least three months as defined by structural or func tional abnormalities of the kidney, manifested by either: Pathological abnormalities or Markers of kidney damage (including abnormalities in the composition of the blo od or urine or abnormalities in imaging tests) . Performing Organization Address [facility] [place] [facility] Phone Number [facility] CLIA: [id number] [place], [place] [address] [address] [place] [address] POCT GLUCOSE (AUTOMATED) (03/24/2020 9:16 PM DEPUTY CHIEF SHERIFF) Pathologist [facility] POCT GLU 157 (H) 70 - 110 mg/dL [facility] Specimen Blood Performing Organization Address [facility] [place] [facility] Phone Number [facility] CLIA: [id number] [place], [place] [address] [address] [place] [address] POCT GLUCOSE (AUTOMATED) (03/24/2020 5:14 PM DEPUTY CHIEF SHERIFF) Pathologist [facility] POCT GLU 109 70 - 110 mg/dL [facility] Specimen Blood Performing Organization Address City/State/Zipcode Phone Number [facility] CLIA: [id number] [place] [address] [place] [address] [place] URINE CULTURE (03/24/2020 3:53 PM DEPUTY CHIEF SHERIFF) URINE CULTURE >100,000 CFU/mL [facility] Pseudomonas aeruginosa SERVICES URINE CULTURE >100,000 CFU/mL [facility] Enterococcus SERVICES faecalisComment: Previous preliminary verified result was Gram-Positive Cocci on 03/26/2020 at 0911 DEPUTY CHIEF SHERIFF Specimen Urine - URINE, CLEAN CATCH Organism Antibiotic Method Susceptibility Pseudomonas Ceftazidime SUSCEPTIBILITY TESTING 4: Suscep tible aeruginosa Pseudomonas Ciprofloxacin SUSCEPTIBILITY TESTING <=0.25: S usceptible aeruginosa Pseudomonas Levofloxacin SUSCEPTIBILITY TESTING 1: Suscep tible aeruginosa Pseudomonas Piperacillin/Tazobacta SUSCEPTIBILITY TESTING 8: Susceptible aeruginosa m Pseudomonas Tobramycin SUSCEPTIBILITY TESTING <=1: Susc eptible aeruginosa Enterococcus faecalis Ampicillin SUSCEPTIBILITY TESTING <=2 : Susceptible Enterococcus faecalis Nitrofurantoin SUSCEPTIBILITY TESTING <=1 6: Susceptible Enterococcus faecalis Vancomycin SUSCEPTIBILITY TESTING 1: Susceptible Comment: Nitrofurantoin is not recommended for us e in treating pyelonephritis or systemic disease. Performing Organization Address City/State/Zipcode Phone Number [facility] CLIA: [id number] [place] [address] [place] [address] URINALYSIS (03/24/2020 3:53 PM DEPUTY CHIEF SHERIFF) Pathologist Sig nature APPEARANCE Cloudy (A) Clear [facility] COLOR Yellow Yellow [facility] PH 7.0 4.8 - 8.0 [facility] SP GRAVITY 1.009 1.003 - 1.030 [facility] GLU U QUAL 150 mg/dL (A) Normal [facility] BLOOD 1+ (A) Negative [facility] KETONES Negative Negative [facility] PROTEIN 500 mg/dL (A) Negative [facility] UROBILIN Normal Normal [facility] BILIRUBIN Negative Negative [facility] NITRITE Negative Negative [facility] LEUK MADONNA 75/uL (A) Negative [facility] RBC/HPF 8 (H) 0 - 3 HPF [facility] WBC/HPF 7 (H) 0 - 5 HPF [facility] BACTERIA Moderate (A) Negative [facility] MUCOUS Slight (A) Negative LPF [facility] AMORPHOUS Rare Rare HPF [facility] SQ EPITH 3 (H) <=2 HPF [facility] Specimen Urine - URINE, CLEAN CATCH Performing Organization Address City/[facility] Phone Number [facility] CLIA: [id number] [place] [address] [place] [address] Type and Screen - Type and Screen expires at midnight on the 3rd day after it was drawn. A current Type and Screen is required when RBCs are requested. For all other blood products, a Type and Screen performed during the current hospitalization i... (03/24/2020 12:10 PM DEPUTY CHIEF SHERIFF) Pathologist Sig P2i ABO & RH AB POSITIVE LAB Comment: Performed at [facility] Laboratory Services - [place] [address] Toll Free: [phone] CLIA No. [id number] IAT Negative LAB Comment: Performed at [facility] Laboratory Services - [facility] Blood [place] [address] Toll Free: [phone] CLIA No. [id number] Specimen Blood - VENOUS Performing Organization Address [facility] Phone Number [facility] POCT GLUCOSE (AUTOMATED) (03/24/2020 11:06 AM DEPUTY CHIEF SHERIFF) Pathologist Sig P2i POCT GLU 149 (H) 70 - 110 mg/dL [facility] Specimen Blood Performing Organization Address [facility] Phone Number [facility] CLIA: [id number] [place] [address] [place] [address] POCT GLUCOSE (AUTOMATED) (03/24/2020 8:06 AM DEPUTY CHIEF SHERIFF) Pathologist Sig P2i POCT GLU 152 (H) 70 - 110 mg/dL [facility] Specimen Blood Performing Organization Address [facility] Phone Number [facility] CLIA: [id number] [place] [address] [place] [address] MAGNESIUM (03/24/2020 4:07 AM DEPUTY CHIEF SHERIFF) Pathologist Sig nature MAGNESIUM 2.2 1.7 - 2.4 mg/dL [facility] Specimen Blood - HAND, RIGHT Performing Organization Address City/State/Zipcode Phone Number [facility] CLIA: [id number] [facility] [place] [id number] [address] [place] [address] BASIC METABOLIC PANEL (NA, K, CL, CO2, GLUCOSE, BUN, CREATININE, CA) (03/24/2020 4:07 AM DEPUTY CHIEF SHERIFF) NA 129 (L) 135 - 145 [facility] mmol/L SERVICES K 4.7 3.5 - 5.0 [facility] mmol/L SERVICES CL 92 (L) 98 - 108 mmol/L [facility] CO2 TOTAL 27 23 - 31 mmol/L [facility] AGAP 10 2 - 16 [facility] BUN 48 (H) 7 - 23 mg/dL [facility] GLUCOSE 118 (H) 70 - 110 mg/dL [facility] CREATININE 5.99 (H) 0.60 - 1.25 [facility] mg/dL SERVICES CALCIUM 9.9 8.6 - 10.6 [facility] mg/dL SERVICES eGFR Calculation 9.2 mL/min/1.73m2 [facility] (Non- SERVICES [place]) eGFR Calculation 11.1 mL/min/1.73m2 [facility] () SERVICES Specimen Blood - HAND, RIGHT Narrative Performed At Association of Glomerular Filtration Rate (GFR) and St aging [facility] SERVICES of Kidney Disease* + + +------- ------ + | GFR (mL/min/1.73 m2) | With Kidney Damage | Wi thout Kidney Damage + + +------- ------ + | >90 | Stage one | Normal + + +------- ------ + | 60-89 | Stage two | Decreased GFR + + +------- ------ + | 30-59 | Stage three | Stage three + + +------- ------ + | 15-29 | Stage four | Stage four + + +------- ------ + | <15 (or dialysis) | Stage five | Stage five + + +------- ------ + *Each stage assumes the associated GFR level has been in effect for at least three months. Stages 1 to 5, wit h or without kidney disease, indicate chronic kidney disease. Notes: Determination of stages one and two (with eGFR >59mL/min/1.73 m2) requires estimation of kidney damag e for at least three months as defined by structural or func tional abnormalities of the kidney, manifested by either: Pathological abnormalities or Markers of kidney damage (including abnormalities in the composition of the blo od or urine or abnormalities in imaging tests) . Performing Organization Address City/State/[facility] Phone Number [facility] CLIA: [id number] [place] [address] [place] [address] POCT GLUCOSE (AUTOMATED) (03/23/2020 8:12 PM CDT) Pathologist Sig nature POCT GLU 144 (H) 70 - 110 mg/dL [facility] Specimen Blood Performing Organization Address City/[facility] Phone Number [facility] CLIA: [id number] [place] [address] [place] [address] POCT GLUCOSE (AUTOMATED) (03/23/2020 5:14 PM CDT) Pathologist Sig nature POCT GLU 111 (H) 70 - 110 mg/dL [facility] Specimen Blood Performing Organization Address [facility] Phone Number [facility] CLIA: [id number] [place] [address] [place] [address] POCT GLUCOSE (AUTOMATED) (03/23/2020 1:43 PM CDT) Pathologist Sig nature POCT GLU 172 (H) 70 - 110 mg/dL [facility] Specimen Blood Performing Organization Address [facility] Phone Number [facility] CLIA: [id number] [place] [address] [place] [address] MAGNESIUM (03/23/2020 4:59 AM CDT) Pathologist Sig nature MAGNESIUM 2.2 1.7 - 2.4 mg/dL [facility] Specimen Blood - ARM, RIGHT Performing Organization Address [facility] Phone Number [facility] CLIA: [id number] [place] [address] [place] [address] BASIC METABOLIC PANEL (NA, K, CL, CO2, GLUCOSE, BUN, CREATININE, CA) (03/23/2020 4:59 AM CDT) NA 128 (L) 135 - 145 [facility] mmol/L SERVICES K 4.5 3.5 - 5.0 [facility] mmol/L SERVICES CL 90 (L) 98 - 108 mmol/L [facility] CO2 TOTAL 26 23 - 31 mmol/L [facility] AGAP 12 2 - 16 [facility] BUN 65 (H) 7 - 23 mg/dL [facility] GLUCOSE 118 (H) 70 - 110 mg/dL [facility] CREATININE 8.17 (H) 0.60 - 1.25 [facility] mg/dL SERVICES CALCIUM 9.7 8.6 - 10.6 [facility] mg/dL SERVICES eGFR Calculation 6.4 mL/min/1.73m2 [facility] (Non- SERVICES [place]) eGFR Calculation 7.8 mL/min/1.73m2 [facility] () SERVICES Specimen Blood - ARM, RIGHT Narrative Performed At Association of Glomerular Filtration Rate (GFR) and St aging [facility] of Kidney Disease* + + +------- ------ + | GFR (mL/min/1.73 m2) | With Kidney Damage | Wi thout Kidney Damage + + +------- ------ + | >90 | Stage one | Normal + + +------- ------ + | 60-89 | Stage two | Decreased GFR + + +------- ------ + | 30-59 | Stage three | Stage three + + +------- ------ + | 15-29 | Stage four | Stage four + + +------- ------ + | <15 (or dialysis) | Stage five | Stage five + + +------- ------ + *Each stage assumes the associated GFR level has been in effect for at least three months. Stages 1 to 5, wit h or without kidney disease, indicate chronic kidney disease. Notes: Determination of stages one and two (with eGFR >59mL/min/1.73 m2) requires estimation of kidney damag e for at least three months as defined by structural or func tional abnormalities of the kidney, manifested by either: Pathological abnormalities or Markers of kidney damage (including abnormalities in the composition of the blo od or urine or abnormalities in imaging tests) . Performing Organization Address City/[facility]/Zipcode Phone Number [facility] CLIA: [id number] [place], [place] [id number] [address] [place] [address] POCT GLUCOSE (AUTOMATED) (03/22/2020 8:58 PM CDT) [facility] POCT GLU 120 (H) 70 - 110 mg/dL [facility] Specimen Blood Performing Organization Address City/[facility]/Zipcode Phone Number [facility] CLIA: [id number] [place] [address] [address] [facility] POCT GLUCOSE (AUTOMATED) (03/22/2020 6:07 PM CDT) Pathologist Sig nature POCT GLU 139 (H) 70 - 110 mg/dL [facility] Specimen Blood Performing Organization Address City/State/Zipcode Phone Number [facility] CLIA: [id number] [place] [address] [address] [facility] LAB ONLY COVID INTERPRETATION (03/22/2020 5:00 PM CDT) COVID DMT Interpretation/Recommendations: [facility] Interpretation SERVICES Tests (PCR) for Active Infection by COVID-19 Virus: This patient has tested nega tive for the COVID-19 virus more than three times with no prior history of a positive result. It is possible that at least one of these tests is a false negative, which occur s with nasopharyngeal sample s. This occurs because the virus is predominantly in the lung and out of reach of the nasopharyngeal swab. However, based upon greater than three negative tests with no prior positive results, the patient is unlikely to have an active infection. Tests for IgM and/or IgG Antibodies to COVID-19 Virus: A. A test for IgM antibody to the COVID-19 virus is likely to be highly informative at this time. IgM antibodies to the COVID-19 virus identified in a high performing test, usually an KIMBERLY or chemilu minescence-based assay, shou ld appear in most patients who are truly infected within approximately a week from the onset of symptoms, and in nearly all patients 2 to 3 weeks after symptoms begin. If the high performing IgM test is positive, even if the initial PCR test for active infection was negative, it is highly probable the patient has been infected with the virus at some point. A repeat PCR test to determine if the patient has recovered from the infection would be important to perform if the IgM itym-[id number] antibody test is positive. B. A test for IgG antibodi es to the COVID-19 virus was not performed and is also likely to be informative. The sample for the IgG antibody test should be collected 2 or more weeks post onset of sympto ms. It is the IgG antibodies that can confer long-term immunity to infectious agents. However, at this time, it is not known if the production of IgG antibodies indicates whether the patient is immune t o future infections with the COVID-19 virus. It is also not known how long IgG antibodies to the COVID-19 virus persist, and therefore the length of immunity to future COVID-19 infections. C. Although it is uncommon , somepatients cannot ever mount an antibody response to infectious agents, such as COVID-19. If there are persistently negative results for IgM and IgG antibodies, this may be the explanation. Interpretation Result Comments: These interpretation comment s are based upon aggregate data pooled from the [facility] medical record including both current and prior COVID-19 related testing results for the following tests offered at our institution: A. Tests for the Identification of SARS-CoV-2 RNA: SARS-CoV-2 PCR assays includ ing [employer] Aptima, [employer] Fusion, Mendosa RealTime, and Libersy Xpert Xpress. SARS-CoV-2 Rapid ID NOW by the ID NOW assay. B. Tests for the Identification of SARS-CoV-2 Antibodi es: Chemiluminescent immunoassay s including Access SARS-CoV-2 IgM (DXI 600), iPeenS Cvob-GYQP-WnB-2 IgG (Vitros 5600 and Vitros 3600), and Mendosa SARS-CoV-2 IgG (ELECTRICIAN CRANE [employer]INTENANCE I System). These interpretation comment s assume that only the above testing was utilized and that the approved acceptable specimen type(s) were used for a given test. These interpretations are au topopulated into Sure Chill based on computerized algorithms matching an interpretation code number to the patient's set of test results. While a clinical pathologist evaluates the combinations for clinical a ccuracy, clinical correlation is recommended as it may not take into account very remote prior testing. Furthermore, it does not consider testing a patient may have had outside of the [facility] system. Additionally, it should be n oted that the computerized algorithm treats the results for PCR testing and Rapid ID NOW testing (also PCR) synonymously, and thus, refers to both testing methodologies as PC R tests. Given that the sens itivity of [facility]'s Rapid ID NOW testing platform is analogous to PCR-based methods, for most patients this has no significant implications for clinical decision making. Kris r, if a patient with a negat francisco result for Rapid ID NOW continues to have a clinical presentation consistent with COVID-19 infection, negative results should be treated as presumptive negative and a new specimen should be tested with alternative PCR molecu lar test. If results for COVID-19 infe ction continue to be negative in the context of a clinical presentation consistent with a viral respiratory illness, it is possible the patient may have an infection with ano ther respiratory virus, such as influenza, rhinovirus, other coronaviruses that cause the common cold, etc. Influenza testing and if clinically indicated a respiratory pathogen panel may be beneficial in this setting. COVID Results SARS-CoV-2 NAAT (no units) [facility] RY Date Value SERVICES 02/05/2020 Not Detected 11/23/2019 Not Detected SARS-CoV-2 Rapid ID NOW (no units) Date Value 03/22/2020 Not Detected 2020 Not Detected 12/12/2019 Not Detected 10/12/2019 Not Detected Specimen Swab - NASOPHARYNGEAL SWAB Performing Organization Address City/State/Zipcode Phone Number [facility] CLIA: [id number] [place] [address] [place] [address] COVID-19 (ID NOW RAPID TESTING) (03/22/2020 5:00 PM CDT) SARS-CoV-2 Rapid ID Not Detected Not Detected [facility] NOW SERVICES Specimen Swab - NASOPHARYNGEAL SWAB Narrative Performed At ID NOW COVID-19 Assay is an isothermal nucleic acid [facility] amplification test intended for the qualitative detect ion of nucleic acid from SARS-CoV-2 viral RNA in nasopharynge al (PHOTOENGRAVER APPRENTICE) specimens. It is used under Emergency Use Authori zation (EUA) by FDA. The limit of detection (LOD) of the assa y is 125 Genome Equivalents/mL. A positive result is indicative of the presence of SARS-CoV-2 RNA. Clinical correlation with patient hi story and other diagnostic information is necessary to deter mine patient infection status. A negative (Not Detected) result does not preclude SARS-CoV-2 infection. In patients with clinical sympto ms and other tests that are consistent with SARS-CoV-2 infect ion, negative results should be treated as presumptive nega tive and a new specimen should be tested with alternative P CR molecular test. Invalid: Please collect a new specimen for repeat montserrat ent testing if clinically indicated. Performing Organization Address City/[facility]/Zipcode Phone Number [facility] CLIA: [id number] [place] [address] [place] [address] POCT GLUCOSE (AUTOMATED) (03/22/2020 8:57 AM CDT) Pathologist Sig nature POCT GLU 139 (H) 70 - 110 mg/dL [facility] Specimen Blood Performing Organization Address City/[facility] Phone Number [facility] CLIA: [id number] [place] [address] [place] [address] MAGNESIUM (03/22/2020 4:21 AM CDT) Pathologist Sig nature MAGNESIUM 2.2 1.7 - 2.4 mg/dL [facility] Specimen Blood - ARM, RIGHT Performing Organization Address [facility] Phone Number [facility] CLIA: [id number] [place] [address] [place] [address] BASIC METABOLIC PANEL (NA, K, CL, CO2, GLUCOSE, BUN, CREATININE, CA) (03/22/2020 4:21 AM CDT) NA 133 (L) 135 - 145 [facility] mmol/L SERVICES K 4.2 3.5 - 5.0 [facility] mmol/L SERVICES CL 94 (L) 98 - 108 mmol/L [facility] SERVICES CO2 TOTAL 27 23 - 31 mmol/L [facility] SERVICES AGAP 12 2 - 16 [facility] BUN 36 (H) 7 - 23 mg/dL [facility] GLUCOSE 115 (H) 70 - 110 mg/dL [facility] CREATININE 5.61 (H) 0.60 - 1.25 [facility] mg/dL SERVICES CALCIUM 10.4 8.6 - 10.6 [facility] mg/dL SERVICES eGFR Calculation 9.9 mL/min/1.73m2 [facility] (Non- SERVICES [place]) eGFR Calculation 12.0 mL/min/1.73m2 [facility] () SERVICES Specimen Blood - ARM, RIGHT Narrative Performed At Association of Glomerular Filtration Rate (GFR) and St aging [facility] SERVICES of Kidney Disease* + + +------- ------ + | GFR (mL/min/1.73 m2) | With Kidney Damage | Wi thout Kidney Damage + + +------- ------ + | >90 | Stage one | Normal + + +------- ------ + | 60-89 | Stage two | Decreased GFR + + +------- ------ + | 30-59 | Stage three | Stage three + + +------- ------ + | 15-29 | Stage four | Stage four + + +------- ------ + | <15 (or dialysis) | Stage five | Stage five + + +------- ------ + *Each stage assumes the associated GFR level has been in effect for at least three months. Stages 1 to 5, wit h or without kidney disease, indicate chronic kidney disease. Notes: Determination of stages one and two (with eGFR >59mL/min/1.73 m2) requires estimation of kidney damag e for at least three months as defined by structural or func tional abnormalities of the kidney, manifested by either: Pathological abnormalities or Markers of kidney damage (including abnormalities in the composition of the blo od or urine or abnormalities in imaging tests) . Performing Organization Address [facility] Phone Number [facility] CLIA: [id number] [place] [address] [place] [address] POCT GLUCOSE (AUTOMATED) (03/21/2020 8:41 PM CDT) Pathologist [facility] POCT GLU 170 (H) 70 - 110 mg/dL [facility] Specimen Blood Performing Organization Address [facility] Phone Number [facility] CLIA: [id number] [place] [address] [phone] [address] [facility] POCT GLUCOSE (AUTOMATED) (03/21/2020 5:02 PM CDT) Pathologist [facility] POCT GLU 145 (H) 70 - 110 mg/dL [facility] Specimen Blood Performing Organization Address [facility] Phone Number [facility] CLIA: [id number] [place] [address] [place] [address] POCT GLUCOSE (AUTOMATED) (03/21/2020 2:02 PM CDT) Pathologist Sig nature POCT GLU 88 70 - 110 mg/dL [facility] Specimen Blood Performing Organization Address [facility] Phone Number [facility] CLIA: [id number] [place] [address] [phone] [address] [facility] POCT GLUCOSE (AUTOMATED) (03/21/2020 8:33 AM CDT) Pathologist Sig nature POCT GLU 148 (H) 70 - 110 mg/dL [facility] Specimen Blood Performing Organization Address City/[facility] Phone Number [facility] CLIA: [id number] [place] [address] [place] [address] MAGNESIUM (03/21/2020 4:54 AM CDT) Pathologist Sig nature MAGNESIUM 2.2 1.7 - 2.4 mg/dL [facility] Specimen Blood - ARM, RIGHT Performing Organization Address [facility] Phone Number [facility] CLIA: [id number] [place] [address] [place] [address] BASIC METABOLIC PANEL (NA, K, CL, CO2, GLUCOSE, BUN, CREATININE, CA) (03/21/2020 4:54 AM CDT) NA 130 (L) 135 - 145 [facility] mmol/L SERVICES K 4.4 3.5 - 5.0 [facility] mmol/L SERVICES CL 96 (L) 98 - 108 mmol/L [facility] SERVICES CO2 TOTAL 21 (L) 23 - 31 mmol/L [facility] SERVICES AGAP 13 2 - 16 [facility] BUN 61 (H) 7 - 23 mg/dL [facility] SERVICES GLUCOSE 105 70 - 110 mg/dL [facility] SERVICES CREATININE 7.52 (H) 0.60 - 1.25 [facility] mg/dL SERVICES CALCIUM 9.7 8.6 - 10.6 [facility] mg/dL SERVICES eGFR Calculation 7.1 mL/min/1.73m2 [facility] (Non- SERVICES [place]) eGFR Calculation 8.6 mL/min/1.73m2 [facility] () SERVICES Specimen Blood - ARM, RIGHT Narrative Performed At Association of Glomerular Filtration Rate (GFR) and St aging [facility] SERVICES of Kidney Disease* + + +------- ------ + | GFR (mL/min/1.73 m2) | With Kidney Damage | Wi thout Kidney Damage + + +------- ------ + | >90 | Stage one | Normal + + +------- ------ + | 60-89 | Stage two | Decreased GFR + + +------- ------ + | 30-59 | Stage three | Stage three + + +------- ------ + | 15-29 | Stage four | Stage four + + +------- ------ + | <15 (or dialysis) | Stage five | Stage five + + +------- ------ + *Each stage assumes the associated GFR level has been in effect for at least three months. Stages 1 to 5, wit h or without kidney disease, indicate chronic kidney disease. Notes: Determination of stages one and two (with eGFR >59mL/min/1.73 m2) requires estimation of kidney damag e for at least three months as defined by structural or func tional abnormalities of the kidney, manifested by either: Pathological abnormalities or Markers of kidney damage (including abnormalities in the composition of the blo od or urine or abnormalities in imaging tests) . Performing Organization Address [facility] Phone Number [facility] CLIA: [id number] [place] [address] [place] [address] POCT GLUCOSE (AUTOMATED) (03/20/2020 8:56 PM CDT) Pathologist [facility] POCT GLU 192 (H) 70 - 110 mg/dL [facility] Specimen Blood Performing Organization Address [facility] Phone Number [facility] CLIA: [id number] [place] [address] [place] [address] POCT GLUCOSE (AUTOMATED) (03/20/2020 6:11 PM CDT) Pathologist Sig nature POCT GLU 111 (H) 70 - 110 mg/dL [facility] Specimen Blood Performing Organization Address [facility] Phone Number [facility] CLIA: [id number] [place] [address] [phone] 301 [facility] POCT GLUCOSE (AUTOMATED) (03/20/2020 2:51 PM CDT) Pathologist Sig nature POCT GLU 138 (H) 70 - 110 mg/dL [facility] Specimen Blood Performing Organization Address City/[facility] Phone Number [facility] CLIA: [id number] [place] [address] [place] [address] [place] URINALYSIS (03/20/2020 2:01 PM CDT) Pathologist Sig nature APPEARANCE Cloudy (A) Clear [facility] COLOR Yellow Yellow [facility] PH 8.0 4.8 - 8.0 [facility] SP GRAVITY 1.007 1.003 - 1.030 [facility] GLU U QUAL 500 mg/dL (A) Normal [facility] BLOOD 2+ (A) Negative [facility] KETONES 5 mg/dL (A) Negative [facility] PROTEIN 100 mg/dL (A) Negative [facility] UROBILIN Normal Normal [facility] BILIRUBIN Negative Negative [facility] NITRITE Negative Negative [facility] LEUK MADONNA 500/uL (A) Negative [facility] RBC/HPF 5 (H) 0 - 3 HPF [facility] WBC/HPF 82 (H) 0 - 5 HPF [facility] BACTERIA Moderate (A) Negative [facility] SQ EPITH 1 <=2 HPF [facility] SERVICES Specimen Urine - URINE, CLEAN CATCH Performing Organization Address [facility] Phone Number [facility] CLIA: [id number] [place] [address] [place] [address] URINE CULTURE (03/20/2020 1:59 PM CDT) URINE CULTURE < 10,000 CFU/mL mixed [facility] aerobic organisms - SERVICES suggests endogenous microbial contamination URINE CULTURE <10,000 CFU/mL [facility] Pseudomonas SERVICES aeruginosaComment: Previous preliminary verified result was Gram-Negative Bacilli on 03/21/2020 at 1511 CDT Specimen Urine - URINE, CLEAN CATCH Organism Antibiotic Method Susceptibility Pseudomonas Ceftazidime SUSCEPTIBILITY TESTING 4: Suscep tible aeruginosa Pseudomonas Ciprofloxacin SUSCEPTIBILITY TESTING <=0.25: S usceptible aeruginosa Pseudomonas Levofloxacin SUSCEPTIBILITY TESTING 1: Suscep tible aeruginosa Pseudomonas Piperacillin/Tazobacta SUSCEPTIBILITY TESTING 8: Susceptible aeruginosa m Pseudomonas Tobramycin SUSCEPTIBILITY TESTING <=1: Susc eptible aeruginosa Performing Organization Address City/[facility] Phone Number [facility] CLIA: [id number] [place] [address] 301 [facility] POCT GLUCOSE (AUTOMATED) (03/20/2020 10:26 AM CDT) Pathologist Sig nature POCT GLU 94 70 - 110 mg/dL [facility] Specimen Blood Performing Organization Address City/[facility]/Zipcode Phone Number [facility] CLIA: [id number] [place] [address] [place] [address] [place] XR CHEST 2 VW (03/20/2020 8:30 AM CDT) Specimen Impressions Performed At PACS/VR/DOSE No acute cardiopulmonary abnormality. Resolution of pulmonary edema with persi stent mild cardiomegaly. Preliminary Report Dictated by Resident: Kendall Hall MD., have reviewed this study and agree with the above report. Narrative Performed At EXAM: XR CHEST 2 VW 03/20/2020 8:20 AM PACS/VR/DOSE HISTORY: 75 years-old Male with pre-op s urgical clearance TECHNIQUE: PA and lateral chest radiogra phs. COMPARISON: 2020 FINDINGS: Cardiomediastinal: The cardiomediastinal silhouette is borderline enlarged. Lungs and pleura: The lungs are well exp anded and clear. No focal consolidation, pneumothorax, or pleural effusion is seen. Musculoskeletal: No acute osseous abnorm ality. Procedure Note Rust, Radiant Results Inft User - 2019 11:34 AM CDT EXAM: XR CHEST 2 VW 03/20/2020 8:20 AM HISTORY: 75 years-old Male with pre-op s urgical clearance TECHNIQUE: PA and lateral chest radiogra phs. COMPARISON: 2020 FINDINGS: Cardiomediastinal: The cardiomediastinal silhouette is borderline enlarged. Lungs and pleura: The lungs are well exp anded and clear. No focal consolidation, pneumothorax, or pleural effusion is seen. Musculoskeletal: No acute osseous abnorm ality. IMPRESSION No acute cardiopulmonary abnormality. Resolution of pulmonary edema with persi stent mild cardiomegaly. Preliminary Report Dictated by Resident: Kendall Hall MD., have reviewed th is study and agree with the above report. Performing Organization Address City/State/[facility] Phone Number PACS/VR/DOSE CBC WITH DIFF (03/20/2020 4:21 AM CDT) Pathologist Sig nature WBC 7.55 4.20 - 10.70 [facility] 10*3/L SERVICES RBC 3.77 (L) 4.26 - 5.52 [facility] 10*6/L SERVICES HGB 11.5 (L) 12.2 - 16.4 [facility] g/dL SERVICES HCT 33.7 (L) 38.4 - 49.3 % [facility] MCV 89.4 81.7 - 95.6 fL [facility] MCH 30.5 26.1 - 32.7 pg [facility] MCHC 34.1 31.2 - 35.0 [facility] g/dL SERVICES RDW-SD 40.0 38.5 - 51.6 fL [facility] RDW-CV 12.3 12.1 - 15.4 % [facility] PLT 176 150 - 328 [facility] 10*3/L SERVICES MPV 11.4 9.8 - 13.0 fL [facility] NRBC/100 WBC 0.0 0.0 - 10.0 /100 [facility] WBCs SERVICES NRBC x10^3 <0.01 10*3/L [facility] GRAN MAT (NEUT) % 72.6 % [facility] IMM GRAN % 0.40 % [facility] LYMPH % 14.8 % [facility] MONO % 7.8 % [facility] EOS % 4.0 % [facility] BASO % 0.4 % [facility] GRAN MAT x10^3(ANC) 5.48 1.99 - 6.95 [facility] 10*3/uL SERVICES IMM GRAN x10^3 0.03 0.00 - 0.06 [facility] 10*3/uL SERVICES LYMPH x10^3 1.12 1.09 - 3.23 [facility] 10*3/uL SERVICES MONO x10^3 0.59 0.36 - 1.02 [facility] 10*3/uL SERVICES EOS x10^3 0.30 0.06 - 0.53 [facility] 10*3/uL SERVICES BASO x10^3 0.03 0.01 - 0.09 [facility] 10*3/uL SERVICES Specimen Blood - ARM, RIGHT Performing Organization Address City/[facility]/Zipcode Phone Number [facility] CLIA: [id number] [place] [address] [place] [address] MAGNESIUM (03/20/2020 4:21 AM CDT) Pathologist Sig nature MAGNESIUM 2.1 1.7 - 2.4 mg/dL [facility] SERVICES Specimen Blood - ARM, RIGHT Performing Organization Address [facility] Phone Number [facility] CLIA: [id number] [place] [address] [phone] 301 [facility] BASIC METABOLIC PANEL (NA, K, CL, CO2, GLUCOSE, BUN, CREATININE, CA) (03/20/2020 4:21 AM CDT) NA 132 (L) 135 - 145 [facility] mmol/L SERVICES K 4.5 3.5 - 5.0 [facility] mmol/L SERVICES CL 97 (L) 98 - 108 mmol/L [facility] CO2 TOTAL 22 (L) 23 - 31 mmol/L [facility] SERVICES AGAP 13 2 - 16 [facility] BUN 33 (H) 7 - 23 mg/dL [facility] GLUCOSE 87 70 - 110 mg/dL [facility] CREATININE 4.77 (H) 0.60 - 1.25 [facility] mg/dL SERVICES CALCIUM 9.4 8.6 - 10.6 [facility] mg/dL SERVICES eGFR Calculation 11.9 mL/min/1.73m2 [facility] (Non- SERVICES [place]) eGFR Calculation 14.5 mL/min/1.73m2 [facility] () SERVICES Specimen Blood - ARM, RIGHT Narrative Performed At Association of Glomerular Filtration Rate (GFR) and St aging [facility] SERVICES of Kidney Disease* + + +------- ------ + | GFR (mL/min/1.73 m2) | With Kidney Damage | Wi thout Kidney Damage + + +------- ------ + | >90 | Stage one | Normal + + +------- ------ + | 60-89 | Stage two | Decreased GFR + + +------- ------ + | 30-59 | Stage three | Stage three + + +------- ------ + | 15-29 | Stage four | Stage four + + +------- ------ + | <15 (or dialysis) | Stage five | Stage five + + +------- ------ + *Each stage assumes the associated GFR level has been in effect for at least three months. Stages 1 to 5, wit h or without kidney disease, indicate chronic kidney disease. Notes: Determination of stages one and two (with eGFR >59mL/min/1.73 m2) requires estimation of kidney damag e for at least three months as defined by structural or func tional abnormalities of the kidney, manifested by either: Pathological abnormalities or Markers of kidney damage (including abnormalities in the composition of the blo od or urine or abnormalities in imaging tests) . Performing Organization Address City/[facility] [place] [facility] Phone Number [facility] CLIA: [id number] [place] [address] [phone] 301 [facility] POCT GLUCOSE (AUTOMATED) (03/19/2020 8:27 PM CDT) Pathologist Sig nature POCT GLU 124 (H) 70 - 110 mg/dL [facility] Specimen Blood Performing Organization Address [facility] Phone Number [facility] CLIA: [id number] [place], [place] [address] 301 [facility] aPTT (03/19/2020 8:14 PM CDT) Pathologist Sig nature APTT Patient 64 (H) 26 - 36 Seconds [facility] SERVICES Specimen Blood - VENOUS Performing Organization Address [facility] Phone Number [facility] CLIA: [id number] [place] [address] [phone] 301 [facility] POCT GLUCOSE (AUTOMATED) (03/19/2020 8:10 PM CDT) Pathologist Sig nature POCT GLU 111 (H) 70 - 110 mg/dL [facility] Specimen Blood Performing Organization Address [facility] Phone Number [facility] CLIA: [id number] [place], [place] [address] 301 [facility] POCT GLUCOSE (AUTOMATED) (03/19/2020 4:44 PM CDT) Pathologist Sig nature POCT GLU 95 70 - 110 mg/dL [facility] Specimen Blood Performing Organization Address [facility] Phone Number [facility] CLIA: [id number] [place] [address] [place] [address] Hepatitis B Surface Antibody (HBsAb) (03/19/2020 3:43 PM CDT) Pathologist Sig nature HBsAB Negative [facility] HBsAb 1.40 mIU/mL [facility] Semi-Quantitative SERVICES Specimen Blood - ARM, LEFT Narrative Performed At Interpretation: Hepatitis B Surface An tibody [facility] SERVICES Negative - Patient is considered to be not immu ne to infection with HBV. Positive - Anti-HBs detected at greater than or equal to 12 mIU/mL. Patient is considered to be immune to infection with HBV. Performing Organization Address City/State/Zipcode Phone Number [facility] CLIA: [id number] [place] [address] [place] [address] aPTT (03/19/2020 3:11 PM CDT) Pathologist Sig nature APTT Patient 28 26 - 36 Seconds [facility] SERVICES Specimen Blood - LINE, ARTERIAL Performing Organization Address City/[facility] Phone Number [facility] CLIA: [id number] [place] [address] [place] [address] BASIC METABOLIC PANEL (NA, K, CL, CO2, GLUCOSE, BUN, CREATININE, CA) (03/19/2020 3:11 PM CDT) NA 135 135 - 145 [facility] mmol/L SERVICES K 4.5 3.5 - 5.0 [facility] mmol/L SERVICES CL 101 98 - 108 mmol/L [facility] CO2 TOTAL 20 (L) 23 - 31 mmol/L [facility] AGAP 14 2 - 16 [facility] BUN 66 (H) 7 - 23 mg/dL [facility] GLUCOSE 105 70 - 110 mg/dL [facility] CREATININE 8.58 (H) 0.60 - 1.25 [facility] mg/dL SERVICES CALCIUM 9.8 8.6 - 10.6 [facility] mg/dL SERVICES eGFR Calculation 6.1 mL/min/1.73m2 [facility] (Non- SERVICES [place]) eGFR Calculation 7.4 mL/min/1.73m2 [facility] () SERVICES Specimen Blood - LINE, ARTERIAL Narrative Performed At Association of Glomerular Filtration Rate (GFR) and St aging [facility] SERVICES of Kidney Disease* + + +------- ------ + | GFR (mL/min/1.73 m2) | With Kidney Damage | Wi thout Kidney Damage + + +------- ------ + | >90 | Stage one | Normal + + +------- ------ + | 60-89 | Stage two | Decreased GFR + + +------- ------ + | 30-59 | Stage three | Stage three + + +------- ------ + | 15-29 | Stage four | Stage four + + +------- ------ + | <15 (or dialysis) | Stage five | Stage five + + +------- ------ + *Each stage assumes the associated GFR level has been in effect for at least three months. Stages 1 to 5, wit h or without kidney disease, indicate chronic kidney disease. Notes: Determination of stages one and two (with eGFR >59mL/min/1.73 m2) requires estimation of kidney damag e for at least three months as defined by structural or func tional abnormalities of the kidney, manifested by either: Pathological abnormalities or Markers of kidney damage (including abnormalities in the composition of the blo od or urine or abnormalities in imaging tests) . Performing Organization Address City/State/Zipcode Phone Number [facility] CLIA: [id number] [place] [address] [place] [address] CBC WITH DIFF (03/19/2020 3:11 PM CDT) [facility] Sig nature WBC 7.10 4.20 - 10.70 [facility] 10*3/L SERVICES RBC 3.73 (L) 4.26 - 5.52 [facility] 10*6/L SERVICES HGB 11.5 (L) 12.2 - 16.4 [facility] g/dL SERVICES HCT 33.2 (L) 38.4 - 49.3 % [facility] SERVICES MCV 89.0 81.7 - 95.6 fL [facility] SERVICES MCH 30.8 26.1 - 32.7 pg [facility] SERVICES MCHC 34.6 31.2 - 35.0 [facility] g/dL SERVICES RDW-SD 39.3 38.5 - 51.6 fL [facility] SERVICES RDW-CV 12.2 12.1 - 15.4 % [facility] SERVICES PLT 175 150 - 328 [facility] 10*3/L SERVICES MPV 10.6 9.8 - 13.0 fL [facility] SERVICES NRBC/100 WBC 0.0 0.0 - 10.0 /100 [facility] WBCs SERVICES NRBC x10^3 <0.01 10*3/L [facility] GRAN MAT (NEUT) % 71.5 % [facility] IMM GRAN % 0.30 % [facility] LYMPH % 13.5 % [facility] MONO % 8.9 % [facility] EOS % 5.4 % [facility] BASO % 0.4 % [facility] GRAN MAT x10^3(ANC) 5.08 1.99 - 6.95 [facility] 10*3/uL SERVICES IMM GRAN x10^3 <0.03 0.00 - 0.06 [facility] 10*3/uL SERVICES LYMPH x10^3 0.96 (L) 1.09 - 3.23 [facility] 10*3/uL SERVICES MONO x10^3 0.63 0.36 - 1.02 [facility] 10*3/uL SERVICES EOS x10^3 0.38 0.06 - 0.53 [facility] 10*3/uL SERVICES BASO x10^3 0.03 0.01 - 0.09 [facility] 10*3/uL SERVICES Specimen Blood - LINE, ARTERIAL Performing Organization Address City/[facility]/Zipcode Phone Number [facility] CLIA: [id number] [place] [address] [phone] 301 [facility] aPTT (03/19/2020 4:34 AM CDT) Pathologist Sig nature APTT Patient 53 (H) 26 - 36 Seconds [facility] SERVICES Specimen Blood - ARTERIAL Performing Organization Address City/[facility]/Zipcode Phone Number [facility] CLIA: [id number] [place] [address] [phone] 301 [facility] aPTT (03/18/2020 8:03 PM CDT) Pathologist Sig nature APTT Patient 37 (H) 26 - 36 Seconds [facility] SERVICES Specimen Blood - VENOUS Performing Organization Address [facility]/Zipcode Phone Number [facility] CLIA: [id number] [place] [address] [phone] 301 [facility] Troponin I (03/18/2020 8:03 PM CDT) Pathologist Sig nature TROPONIN I 0.284 (H) <=0.034 ng/mL [facility] Specimen Blood - VENOUS Narrative Performed At Equal or Less than 0.034 ng/ml---Normal [facility] Note: Cardiac troponin begins to rise 3-4 hours after the onset of ischemia. Repeat in 4-6 hours if the sample w as drawn within 3-4 hours of the onset of the symptom and found normal. Between 0.035 and 0.120 ng/mL--- Borderline. Questiona ble myocardial injury or necrosis Note: Serial measurement may be necessary to confirm o r exclude the diagnosis of myocardial injury or necrosis ; Clinical correlation (symptoms, EKGs, imaging studies, and others) required; Repeat in 4-6 hours if clinically indicated. Equal or Higher than 0.121 ng/mL---Abnormal. Myocardia l Injury or Necrosis Likely Biotin has been reported to cause a negative bias, int erpret results relative to patient's use of biotin. Performing Organization Address [facility] Phone Number [facility] CLIA: [id number] [place] [id number] [address] [place] [address] Urinalysis (03/18/2020 4:24 PM CDT) Pathologist Sig nature APPEARANCE Cloudy (A) Clear [facility] COLOR Red (A) Yellow [facility] PH 6.0 4.8 - 8.0 [facility] SP GRAVITY 1.007 1.003 - 1.030 [facility] GLU U QUAL 150 mg/dL (A) Normal [facility] BLOOD 3+ (A) Negative [facility] KETONES Negative Negative [facility] PROTEIN 500 mg/dL (A) Negative [facility] UROBILIN Normal Normal [facility] BILIRUBIN Negative Negative [facility] NITRITE Negative Negative [facility] LEUK MADONNA 500/uL (A) Negative [facility] RBC/HPF 124 (H) 0 - 3 HPF [facility] WBC/HPF 61 (H) 0 - 5 HPF [facility] BACTERIA Many (A) Negative [facility] WBC CLUMPS 10 (H) <=1 HPF [facility] Specimen Urine - URINE, CLEAN CATCH Performing Organization Address [facility] [place] [facility] Phone Number [facility] CLIA: [id number] [place], [place] [address] [address] [place] [address] Hepatitis B Surface Antigen (HBsAg) (03/18/2020 1:22 PM CDT) Pathologist [facility] HBsAg Negative Negative [facility] HBsAg 0.06 [facility] Semi-Quantitative SERVICES Specimen Blood - ARM, RIGHT Performing Organization Address [facility] Phone Number [facility] CLIA: [id number] [place] [address] [place] [address] Troponin I (03/18/2020 1:22 PM CDT) Pathologist [facility] TROPONIN I 0.370 (H) <=0.034 ng/mL [facility] Specimen Blood - ARM, RIGHT Narrative Performed At Equal or Less than 0.034 ng/ml---Normal [facility] Note: Cardiac troponin begins to rise 3-4 hours after the onset of ischemia. Repeat in 4-6 hours if the sample w as drawn within 3-4 hours of the onset of the symptom and found normal. Between 0.035 and 0.120 ng/mL--- Borderline. Questiona ble myocardial injury or necrosis Note: Serial measurement may be necessary to confirm o r exclude the diagnosis of myocardial injury or necrosis ; Clinical correlation (symptoms, EKGs, imaging studies, and others) required; Repeat in 4-6 hours if clinically indicated. Equal or Higher than 0.121 ng/mL---Abnormal. Myocardia l Injury or Necrosis Likely Biotin has been reported to cause a negative bias, int erpret results relative to patient's use of biotin. Performing Organization Address [facility] Phone Number [facility] CLIA: [id number] [place] [address] [place] [address] aPTT (03/18/2020 11:11 AM CDT) Pathologist [facility] APTT Patient >150 (HH) 26 - 36 Seconds [facility] Specimen Blood - ARM, RIGHT Performing Organization Address [facility] Phone Number [facility] CLIA: [id number] [place] [address] [phone] 301 [facility] POCT GLUCOSE (AUTOMATED) (03/18/2020 7:38 AM CDT) Pathologist [facility] POCT GLU 97 70 - 110 mg/dL [facility] Specimen Blood Performing Organization Address City/State/Zipcode Phone Number [facility] CLIA: [id number] [place] [address] 301 [facility] aPTT (03/18/2020 2:50 AM CDT) Pathologist Sig nature APTT Patient 54 (H) 26 - 36 Seconds [facility] Specimen Blood - ARM, RIGHT Performing Organization Address City/[facility]/Zipcode Phone Number [facility] CLIA: [id number] [place] [address] [place] [address] BASIC METABOLIC PANEL (NA, K, CL, CO2, GLUCOSE, BUN, CREATININE, CA) (03/18/2020 2:50 AM CDT) NA 137 135 - 145 [facility] mmol/L SERVICES K 4.2 3.5 - 5.0 [facility] mmol/L SERVICES CL 98 98 - 108 mmol/L [facility] CO2 TOTAL 27 23 - 31 mmol/L [facility] AGAP 12 2 - 16 [facility] BUN 36 (H) 7 - 23 mg/dL [facility] GLUCOSE 94 70 - 110 mg/dL [facility] CREATININE 5.45 (H) 0.60 - 1.25 [facility] mg/dL SERVICES CALCIUM 10.1 8.6 - 10.6 [facility] mg/dL SERVICES eGFR Calculation 10.2 mL/min/1.73m2 [facility] (Non- SERVICES [place]) eGFR Calculation 12.4 mL/min/1.73m2 [facility] () SERVICES Specimen Blood - ARM, RIGHT Narrative Performed At Association of Glomerular Filtration Rate (GFR) and St aging [facility] of Kidney Disease* + + +------- ------ + | GFR (mL/min/1.73 m2) | With Kidney Damage | Wi thout Kidney Damage + + +------- ------ + | >90 | Stage one | Normal + + +------- ------ + | 60-89 | Stage two | Decreased GFR + + +------- ------ + | 30-59 | Stage three | Stage three + + +------- ------ + | 15-29 | Stage four | Stage four + + +------- ------ + | <15 (or dialysis) | Stage five | Stage five + + +------- ------ + *Each stage assumes the associated GFR level has been in effect for at least three months. Stages 1 to 5, wit h or without kidney disease, indicate chronic kidney disease. Notes: Determination of stages one and two (with eGFR >59mL/min/1.73 m2) requires estimation of kidney damag e for at least three months as defined by structural or func tional abnormalities of the kidney, manifested by either: Pathological abnormalities or Markers of kidney damage (including abnormalities in the composition of the blo od or urine or abnormalities in imaging tests) . Performing Organization Address City/State/Zipcode Phone Number [facility] CLIA: [id number] [place] [address] [place] [address] CBC WITH DIFF (03/18/2020 2:50 AM CDT) Pathologist Sig nature WBC 7.67 4.20 - 10.70 [facility] 10*3/L SERVICES RBC 3.87 (L) 4.26 - 5.52 [facility] 10*6/L SERVICES HGB 12.0 (L) 12.2 - 16.4 [facility] g/dL SERVICES HCT 34.9 (L) 38.4 - 49.3 % [facility] MCV 90.2 81.7 - 95.6 fL [facility] MCH 31.0 26.1 - 32.7 pg [facility] MCHC 34.4 31.2 - 35.0 [facility] g/dL SERVICES RDW-SD 39.6 38.5 - 51.6 fL [facility] RDW-CV 12.1 12.1 - 15.4 % [facility] PLT 188 150 - 328 [facility] 10*3/L SERVICES MPV 11.2 9.8 - 13.0 fL [facility] NRBC/100 WBC 0.0 0.0 - 10.0 /100 [facility] WBCs SERVICES NRBC x10^3 <0.01 10*3/L [facility] GRAN MAT (NEUT) % 77.4 % [facility] IMM GRAN % 0.30 % [facility] LYMPH % 10.8 % [facility] MONO % 6.6 % [facility] EOS % 4.2 % [facility] BASO % 0.7 % [facility] GRAN MAT x10^3(ANC) 5.94 1.99 - 6.95 [facility] 10*3/uL SERVICES IMM GRAN x10^3 <0.03 0.00 - 0.06 [facility] 10*3/uL SERVICES LYMPH x10^3 0.83 (L) 1.09 - 3.23 [facility] 10*3/uL SERVICES MONO x10^3 0.51 0.36 - 1.02 [facility] 10*3/uL SERVICES EOS x10^3 0.32 0.06 - 0.53 [facility] 10*3/uL SERVICES BASO x10^3 0.05 0.01 - 0.09 [facility] 10*3/uL SERVICES Specimen Blood - ARM, RIGHT Performing Organization Address [facility] Phone Number [facility] CLIA: [id number] [place], [place] [address] [address] [place] [address] Troponin I (03/18/2020 2:50 AM CDT) Pathologist Sig nature TROPONIN I 0.463 (H) <=0.034 ng/mL [facility] Specimen Blood - ARM, RIGHT Narrative Performed At Equal or Less than 0.034 ng/ml---Normal [facility] Note: Cardiac troponin begins to rise 3-4 hours after the onset of ischemia. Repeat in 4-6 hours if the sample w as drawn within 3-4 hours of the onset of the symptom and found normal. Between 0.035 and 0.120 ng/mL--- Borderline. Questiona ble myocardial injury or necrosis Note: Serial measurement may be necessary to confirm o r exclude the diagnosis of myocardial injury or necrosis ; Clinical correlation (symptoms, EKGs, imaging studies, and others) required; Repeat in 4-6 hours if clinically indicated. Equal or Higher than 0.121 ng/mL---Abnormal. Myocardia l Injury or Necrosis Likely Biotin has been reported to cause a negative bias, int erpret results relative to patient's use of biotin. Performing Organization Address City/[facility] [place] [facility] Phone Number [facility] CLIA: [id number] [place] [address] [phone] 301 [facility] aPTT (2020 5:52 PM CDT) Pathologist Sig nature APTT Patient 96 (H) 26 - 36 Seconds [facility] Specimen Blood - ARM, LEFT Performing Organization Address City/[facility] [place] [facility] Phone Number [facility] CLIA: [id number] [place] [address] [place] [address] Troponin I (2020 5:52 PM CDT) [facility] TROPONIN I 0.402 (H) <=0.034 ng/mL [facility] Specimen Blood - ARM, LEFT Narrative Performed At Equal or Less than 0.034 ng/ml---Normal [facility] Note: Cardiac troponin begins to rise 3-4 hours after the onset of ischemia. Repeat in 4-6 hours if the sample w as drawn within 3-4 hours of the onset of the symptom and found normal. Between 0.035 and 0.120 ng/mL--- Borderline. Questiona ble myocardial injury or necrosis Note: Serial measurement may be necessary to confirm o r exclude the diagnosis of myocardial injury or necrosis ; Clinical correlation (symptoms, EKGs, imaging studies, and others) required; Repeat in 4-6 hours if clinically indicated. Equal or Higher than 0.121 ng/mL---Abnormal. Myocardia l Injury or Necrosis Likely Biotin has been reported to cause a negative bias, int erpret results relative to patient's use of biotin. Performing Organization Address City/[facility] [place] [facility] Phone Number [facility] CLIA: [id number] [place] [address] [place] [address] Acute Care Arterial Blood Gas. Please repeat ABG on BIPAP (2020 2:58 PM CDT) [facility] PH 7.31 (L) 7.35 - 7.45 [facility] PCO2 39 35 - 45 mmHg [facility] PO2 100 80 - 100 mmHg [facility] HCO3 19 (L) 22 - 26 mEq/L [facility] BE -6.5 (L) -3.0 - 3.0 mEq/L [facility] Specimen Blood - ARTERIAL Performing Organization Address City/State/Zipcode Phone Number [facility] CLIA: [id number] [place] [address] [place] [address] MRSA / MSSA Screen by PCR, Nares (2020 11:22 AM CDT) [facility] MRSA Screen by PCR, Negative Negative [facility] Nares SERVICES MSSA Screen by PCR, Positive (A) Negative [facility] Nares SERVICES MRSA/MSSA Positive? Yes (A) No [facility] Specimen Swab - NARES, BOTH SIDES Narrative Performed At A positive test result does not necessarily indicate t he [facility] presence of viable organism. Performing Organization Address City/[facility]/Zipcode Phone Number [facility] CLIA: [id number] [place] [address] [place] [address] Hepatic Function Panel (ALB, T.PRO, BILI T, BU/BC, ALT, AST, ALK PHOS) (2020 11:18 AM CDT) TOTAL BILI 0.9 0.1 - 1.1 mg/dL [facility] BILI UNCON 0.6 0.1 - 1.1 mg/dL [facility] BILI CONJ 0.0 0.0 - 0.3 mg/dL [facility] T PROTEIN 7.4 6.3 - 8.2 g/dL [facility] ALBUMIN 4.4 3.5 - 5.0 g/dL [facility] ALK PHOS 62Comment: Slight 34 - 122 U/L [facility] hemolysis SERVICES ALTv 15 5 - 50 U/L [facility] AST(SGOT) 47 (H)Comment: 13 - 40 U/L [facility] Slight hemolysis SERVICES Specimen Blood - VENOUS Performing Organization Address [facility] [place] [facility] Phone Number [facility] CLIA: [id number] [place] [address] [place] [address] Lipid Panel (Total Cholesterol, Triglycerides, HDL) (2020 11:18 AM CDT) Pathologist Sig nature CHOL 137 120 - 200 mg/dL [facility] HDL 59 >40 mg/dL [facility] HDLC RATIO 2.3 <=5.0 [facility] TRIG 83 30 - 170 mg/dL [facility] LDL CHOL 61 <=160 mg/dL [facility] VLDL 17 5 - 60 mg/dL [facility] Specimen Blood - VENOUS Performing Organization Address City/[facility] [place] [facility] Phone Number [facility] CLIA: [id number] [place] [address] [place] [address] Glycosylated Hemoglobin (A1C) (2020 11:18 AM CDT) Pathologist Ion sethi HGB A1C 5.7 4.0 - 6.0 % [facility] Specimen Blood - VENOUS Performing Organization Address [facility] [place] [facility] Phone Number [facility] CLIA: [id number] [place] [address] [place] [address] Troponin I (2020 11:18 AM CDT) Pathologist Sig navdeep TROPONIN I 0.075 (H) <=0.034 ng/mL [facility] Specimen Blood - VENOUS Narrative Performed At Equal or Less than 0.034 ng/ml---Normal [facility] Note: Cardiac troponin begins to rise 3-4 hours after the onset of ischemia. Repeat in 4-6 hours if the sample w as drawn within 3-4 hours of the onset of the symptom and found normal. Between 0.035 and 0.120 ng/mL--- Borderline. Questiona ble myocardial injury or necrosis Note: Serial measurement may be necessary to confirm o r exclude the diagnosis of myocardial injury or necrosis ; Clinical correlation (symptoms, EKGs, imaging studies, and others) required; Repeat in 4-6 hours if clinically indicated. Equal or Higher than 0.121 ng/mL---Abnormal. Myocardia l Injury or Necrosis Likely Biotin has been reported to cause a negative bias, int erpret results relative to patient's use of biotin. Performing Organization Address [facility] [place] [facility] Phone Number [facility] CLIA: [id number] [place] [address] [place] [address] LAB ONLY COVID INTERPRETATION (2020 8:52 AM CDT) Pathologist Dee COVID DMT Interpretation/Recommendatio ns\\nTests (PCR) for Active Infection by COVID-19 Virus: [facility] Interpretation SERVICES This result indicates that t he patient has been tested negative for the COVID- 19 virus on one occasion. The most likely interpretation, for approximately two- thirds of patients with a negative test, is that the patient is truly ne gative and has not been infected with the COVID-19 virus. However, for those tested using a nasopharyngeal sample, there is approximately a [id number] chance that the patie nt was infected and the resu lt of the first test is a false negative. This occurs because the virus is predominantly in the lung and out of reach of the nasopharyngeal swab. If the patient becomes progressively more symptomatic, a repeat PCR test muriel uld be performed. Tests for IgM and/or IgG Antibodies to COVID-19 Virus: A. A test for IgM antibod y to the COVID-19 virus is likely to be highly informative at this time. IgM antibodies to the COVID-19 virus identified in a high performing test, usually an KIMBERLY or chemil uminescence based assay, muriel uld appear in most patients who are truly infected within approximately a week from the onset of symptoms, and in nearly all patients 2 to 3 weeks after symptoms begin. If th e high performing IgM test i s positive, even if the initial PCR test for active infection was negative, it is highly probable the patient has been infected with the virus at some point. A repeat PCR sintia t to determine if the patien t has recovered from the infection would be important to perform if the IgM [id number] antibody test is positive. B. A test for IgG antibod ies to the COVID-19 virus was not performed and is also likely to be informative. The sample for the IgG antibody test should be collected 2 or more weeks post onset of sympt oms. It is the IgG antibodie s that can confer long-term immunity to infectious agents. However, at this time, it is not known if the production of IgG antibodies indicates whether the patient is immun e to future infections with the COVID-19 virus. It is also not known how long IgG antibodies to the COVID-19 virus persist, and therefore the length of immunity to future COVID-19 infections. C. Although it is uncommo n, some patients cannot ever mount an antibody response to infectious agents, such as COVID-19. If there are persistently negative results for IgM and IgG antibodies, this may be the explanation. COVID Results SARS-CoV-2 Rapid ID NOW (no units) [facility] Date Value SERVICES 2020 Not Detected Specimen Swab - NASOPHARYNGEAL SWAB Performing Organization Address City/State/Zipcode Phone Number [facility] CLIA: [id number] [place] [address] [address] [facility] COVID-19 (ID NOW RAPID TESTING) (2020 8:52 AM CDT) SARS-CoV-2 Rapid ID Not Detected Not Detected [facility] NOW SERVICES Specimen Swab - NASOPHARYNGEAL SWAB Narrative Performed At ID NOW COVID-19 Assay is an isothermal nucleic acid [facility] amplification test intended for the qualitative detect ion of nucleic acid from SARS-CoV-2 viral RNA in nasopharynge al (PHOTOENGRAVER APPRENTICE) specimens. It is used under Emergency Use Authori zation (EUA) by FDA. The limit of detection (LOD) of the assa y is 125 Genome Equivalents/mL. A positive result is indicative of the presence of SARS-CoV-2 RNA. Clinical correlation with patient hi story and other diagnostic information is necessary to deter mine patient infection status. A negative (Not Detected) result does not preclude SARS-CoV-2 infection. In patients with clinical sympto ms and other tests that are consistent with SARS-CoV-2 infect ion, negative results should be treated as presumptive nega tive and a new specimen should be tested with alternative P CR molecular test. Invalid: Please collect a new specimen for repeat montserrat ent testing if clinically indicated. Performing Organization Address City/State/Zipcode Phone Number [facility] CLIA: [id number] [place] [address] [place] [address] Chest 1 View (2020 8:50 AM CDT) Specimen Impressions Performed At PACS/VR/DOSE Mild pulmonary edema with cardiomegaly. Preliminary Report Dictated by Resident: Irving Parkinson MD., have reviewed this study and agree with the above report. Narrative Performed At EXAM: PACS/VR/DOSE XR CHEST 1 VW HISTORY: 75 years-old; Male; SOB COMPARISON: None FINDINGS: The patient is rotated. Lungs/Pleura: Prominent central vascular congestion wi th increase bilateral interstitial marking. There is no pleu ral effusion or pneumothorax. Heart/Mediastinum: The cardiomediastinal silhouette is enlarged. No acute osseous structure abnormality. Procedure Note Rust, Radiant Results Inft User - 2019 9:33 AM CDT EXAM: XR CHEST 1 VW HISTORY: 75 years-old; Male; SOB COMPARISON: None FINDINGS: The patient is rotated. Lungs/Pleura: Prominent central vascular congestion with increase bilateral interstitial marking. There is no pleur al effusion or pneumothorax. Heart/Mediastinum: The cardiomediastinal silhouette is enlarged. No acute osseous structure abnormality. IMPRESSION Mild pulmonary edema with cardiomegaly. Preliminary Report Dictated by Resident: Cristhian Arnett I, Irving Webber MD., have r eviewed this study and agree with the above report. Performing Organization Address City/State/Zipcode Phone Number PACS/VR/DOSE N-TERMINAL PRO-BNP (2020 8:45 AM CDT) Pathologist [facility] NT-proBNP 25,200 (H) <=450 pg/mL [facility] Specimen Blood - VENOUS Narrative Performed At [facility] has been reported to cause a negative bias, int erpret [facility] results relative to patient's use of biotin. Performing Organization Address [facility] [place] [facility] Phone Number [facility] CLIA: [id number] [place] [address] [phone] 301 [facility] Prothrombin Time (PT) / INR (2020 8:45 AM CDT) PROTIME PATIENT 11.0 10.1 - 12.6 [facility] Seconds SERVICES INR 1.0Comment: Normal [facility] INR <1.1; Warfarin SERVICES Therapeutic range 2.0 to 3.0 or 2.5 to 3.5, depending upon the indications. Specimen Blood - VENOUS Performing Organization Address [facility] [place] [facility] Phone Number [facility] CLIA: [id number] [place] [address] [phone] 301 [facility] aPTT (2020 8:45 AM CDT) Pathologist Sig nature APTT Patient 27 26 - 36 Seconds [facility] Specimen Blood - VENOUS Performing Organization Address [facility] Phone Number [facility] CLIA: [id number] [place] [address] [phone] 301 [facility] Troponin I (2020 8:45 AM CDT) Pathologist Sig [facility] TROPONIN I 0.030 <=0.034 ng/mL [facility] Specimen Blood - VENOUS Narrative Performed At Equal or Less than 0.034 ng/ml---Normal [facility] Note: Cardiac troponin begins to rise 3-4 hours after the onset of ischemia. Repeat in 4-6 hours if the sample w as drawn within 3-4 hours of the onset of the symptom and found normal. Between 0.035 and 0.120 ng/mL--- Borderline. Questiona ble myocardial injury or necrosis Note: Serial measurement may be necessary to confirm o r exclude the diagnosis of myocardial injury or necrosis ; Clinical correlation (symptoms, EKGs, imaging studies, and others) required; Repeat in 4-6 hours if clinically indicated. Equal or Higher than 0.121 ng/mL---Abnormal. Myocardia l Injury or Necrosis Likely Biotin has been reported to cause a negative bias, int erpret results relative to patient's use of biotin. Performing Organization Address City/[facility]/Zipcode Phone Number [facility] CLIA: [id number] [place] [address] [place] [address] Lipase Serum (2020 8:45 AM CDT) [facility] LIPASE 195 0 - 220 U/L [facility] Specimen Blood - VENOUS Performing Organization Address City/[facility] [place] [facility] Phone Number [facility] CLIA: [id number] [place] [address] [place] [address] Hepatic Function Panel (ALB, T.PRO, BILI T, BU/BC, ALT, AST, ALK PHOS) (2020 8:45 AM CDT) [facility] TOTAL BILI 1.0 0.1 - 1.1 mg/dL [facility] BILI UNCON 0.7 0.1 - 1.1 mg/dL [facility] BILI CONJ 0.0 0.0 - 0.3 mg/dL [facility] SERVICES T PROTEIN 7.9 6.3 - 8.2 g/dL [facility] [facility] ALBUMIN 4.8 3.5 - 5.0 g/dL [facility] ALK PHOS 63 34 - 122 U/L [facility] ALTv 16 5 - 50 U/L [facility] AST(SGOT) 39 13 - 40 U/L [facility] Specimen Blood - VENOUS Performing Organization Address City/State/Zipcode Phone Number [facility] CLIA: [id number] [place], [place] [id number] [address] [place] [address] CBC with Differential (2020 8:45 AM CDT) Pathologist Sig nature WBC 13.18 (H) 4.20 - 10.70 [facility] 10*3/L SERVICES RBC 4.06 (L) 4.26 - 5.52 [facility] 10*6/L SERVICES HGB 12.5 12.2 - 16.4 [facility] g/dL SERVICES HCT 37.9 (L) 38.4 - 49.3 % [facility] MCV 93.3 81.7 - 95.6 fL [facility] MCH 30.8 26.1 - 32.7 pg [facility] MCHC 33.0 31.2 - 35.0 [facility] g/dL SERVICES RDW-SD 42.2 38.5 - 51.6 fL [facility] RDW-CV 12.2 12.1 - 15.4 % [facility] PLT 225 150 - 328 [facility] 10*3/L SERVICES MPV 11.3 9.8 - 13.0 fL [facility] NRBC/100 WBC 0.0 0.0 - 10.0 /100 [facility] WBCs SERVICES NRBC x10^3 <0.01 10*3/L [facility] GRAN MAT (NEUT) % 66.5 % [facility] IMM GRAN % 0.40 % [facility] LYMPH % 20.9 % [facility] MONO % 5.7 % [facility] EOS % 6.0 % [facility] BASO % 0.5 % [facility] GRAN MAT x10^3(ANC) 8.77 (H) 1.99 - 6.95 [facility] 10*3/uL SERVICES IMM GRAN x10^3 0.05 0.00 - 0.06 [facility] 10*3/uL SERVICES LYMPH x10^3 2.75 1.09 - 3.23 [facility] 10*3/uL SERVICES MONO x10^3 0.75 0.36 - 1.02 [facility] 10*3/uL SERVICES EOS x10^3 0.79 (H) 0.06 - 0.53 [facility] 10*3/uL SERVICES BASO x10^3 0.07 0.01 - 0.09 [facility] 10*3/uL SERVICES Specimen Blood - VENOUS Performing Organization Address City/State/Zipcode Phone Number [facility] CLIA: [id number] [place], [place] [id number] [address] [place] [address] Basic Metabolic Panel (NA, K, CL, CO2, GLUCOSE, BUN, CREATININE, CA) (2020 8:45 AM CDT) NA 139 135 - 145 [facility] mmol/L SERVICES K 5.4 (H)Comment: 3.5 - 5.0 [facility] Slight hemolysis mmol/L SERVICES CL 103 98 - 108 [facility] mmol/L SERVICES CO2 TOTAL 20 (L) 23 - 31 [facility] mmol/L SERVICES AGAP 16 2 - 16 [facility] BUN 65 (H)Comment: 7 - 23 mg/dL [facility] Slight hemolysis SERVICES GLUCOSE 200 (H) 70 - 110 [facility] mg/dL SERVICES CREATININE 7.76 (H) 0.60 - 1.25 [facility] mg/dL SERVICES CALCIUM 10.2 8.6 - 10.6 [facility] mg/dL SERVICES eGFR Calculation 6.8 mL/min/1.73m2 [facility] (Non- SERVICES [place]) eGFR Calculation 8.3 mL/min/1.73m2 [facility] () SERVICES Specimen Blood - VENOUS Narrative Performed At Association of Glomerular Filtration Rate (GFR) and St aging [facility] of Kidney Disease* + + +------- ------ + | GFR (mL/min/1.73 m2) | With Kidney Damage | Wi thout Kidney Damage + + +------- ------ + | >90 | Stage one | Normal + + +------- ------ + | 60-89 | Stage two | Decreased GFR + + +------- ------ + | 30-59 | Stage three | Stage three + + +------- ------ + | 15-29 | Stage four | Stage four + + +------- ------ + | <15 (or dialysis) | Stage five | Stage five + + +------- ------ + *Each stage assumes the associated GFR level has been in effect for at least three months. Stages 1 to 5, wit h or without kidney disease, indicate chronic kidney disease. Notes: Determination of stages one and two (with eGFR >59mL/min/1.73 m2) requires estimation of kidney damag e for at least three months as defined by structural or func tional abnormalities of the kidney, manifested by either: Pathological abnormalities or Markers of kidney damage (including abnormalities in the composition of the blo od or urine or abnormalities in imaging tests) . Performing Organization Address City/[facility]/Zipcode Phone Number [facility] CLIA: [id number] [place], [place] [id number] [address] [facility] AC PANEL 20 + LACTIC ACID (2020 8:44 AM CDT) [facility] PH 7.12 (LL) 7.35 - 7.45 [facility] PCO2 66 (H) 35 - 45 mmHg [facility] PO2 78 (L) 80 - 100 mmHg [facility] HCO3 21 (L) 22 - 26 mEq/L [facility] BE -9.6 (L) -3.0 - 3.0 mEq/L [facility] THB 13.4 (L) 13.5 - 18.0 g/dL [facility] %O2HB 90.1 (L) 94.0 - 99.0 % [facility] %COHB ART 0.5 0.0 - 1.5 % [facility] %METHB ART 0.3 (L) 0.4 - 1.5 % [facility] VOL%O2 ART 17.0 15.0 - 23.0 % [facility] NA 138 135 - 145 mmol/L [facility] K+ 4.8 3.5 - 5.0 mmol/L [facility] AC CA IONZ 5.40 (H) 4.50 - 5.30 mg/dL [facility] GLUCOSE 204 (H) 70 - 110 mg/dL [facility] LACTIC ACID 1.84 mmol/L [facility] Specimen Blood - ARTERIAL Performing Organization Address City/[facility]/Zipcode Phone Number [facility] CLIA: [id number] [place], [place] [id number] [address] [facility] documented in this encounter Visit Diagnoses Diagnosis Dyspnea - Primary Other dyspnea and respiratory abnormalit y Shortness of breath Acute on chronic heart failure, unspecif ied heart failure type ESRD (end stage renal disease) End stage renal disease 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 S/P CABG (coronary artery bypass graft) Postsurgical aortocoronary bypass status S/P CABG x 2 (free MILLIGAN-LAD, 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;Dr Whitehead Postsurgical aortocoronary bypass status Dialysis patient Renal dialysis status Essential hypertension Unspecified essential hypertension Diabetes mellitus due to underlying cond ition, controlled, with chronic kidney disease on chronic dialysis, without akosua g-term current use of insulin HLD (hyperlipidemia) Other and unspecified hyperlipidemia Diabetic polyneuropathy associated with type 2 diabetes mellitus Cancer of prostate with intermediate rec urrence risk (stage T2b-c or Macrina 7 or PSA 10-20) Malignant neoplasm of prostate 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 Heart failure Heart failure, unspecified documented in this encounter Administered Medications Medication Order MAR Action Action Date Dose Rate Site acetaminophen-codeine (TYLENOL Given 03/28/2020 8:31 PM DEPUT[employer] CHIEF SHERIFF 1 t ablet #3) 300-30 mg tablet 1 tablet 1 tablet, Oral, Q6HPRN, Starting 03/25/20 at 1949, Until Discontinued, Routine, Pain (scale 4-6) Given 03/26/2020 8:54 PM DEPUT[employer] CHIEF SHERIFF 1 tablet Given 03/26/2020 2:31 PM DEPUT[employer] CHIEF SHERIFF 1 tablet aspirin chewable tablet 81 mg Given 03/29/2020 8:06 AM [employer]PUT[employer] CHIEF SHERIFF 81 mg 81 mg, Oral, DAILY, First dose on Wed03/26/20 at 0900, Until Discontinued, Routine Given 03/28/2020 8:02 AM [employer] CHIE[employer] SHERIFF 81 mg Given 03/27/2020 8:21 AM [employer]PUT[employer] CHIE[employer] SHERIFF 81 mg atorvastatin (LIPITOR) tablet 80 mg Given 03/29/2020 7:37 PM DEPUT[employer] CHIEF SHERIFF 80 mg 80 mg, Oral, QPM, First dose on Wed03/17/20 at 1700, Until Discontinued, Routine, retail team member approving Restricted medication: ANI SALAZAR Given 03/28/2020 5:57 PM DEPUT[employer] CHIEF SHERIFF 80 mg Given 03/27/2020 5:23 PM DEPUT[employer] CHIEF SHERIFF 80 mg bisacodyL (DULCOLAX) suppository 10 mg 10 mg, Rectal, QDAILYPRN, Starting Mimi 03/28/20 at 1303 , Until Discontinued, Routine, Constipation clopidogreL (PLAVIX) tablet 75 mg Given 03/29/2020 8:06 AM DE[employer] CHIE[employer] SHERIFF 75 mg 75 mg, Oral, DAILY, First dose on Wed03/27/20 at 1030, Until Discontinued, Routine Given 03/28/2020 8:02 AM DE[employer] CHIEF SHERIFF 75 mg Given 03/27/2020 12:27 PM DEPUT[employer] CHIEF SHERIFF 75 mg docusate (COLACE) capsule 100 mg Given 03/29/2020 7:37 PM DEPUT[employer] CHIEF SHERIFF 100 mg 100 mg, Oral, BID, First dose (after last modification) on Wed03/28/20 at 2000, Until Discontinued, Routine Given 03/29/2020 8:06 AM DEPUT[employer] CHIEF SHERIFF 100 mg Given 03/28/2020 8:32 PM DEPUT[employer] CHIEF SHERIFF 100 mg heparin (porcine) injection Given 03/29/2020 8:07 AM DEPUT[employer] CHIEF SHERIFF 5,000 Units Abdomen-SC 5,000 Units 5,000 Units, Subcutaneous, Q12H, First dose on Wed03/26/20 at 0800, Until Discontinued, Routine Given 03/28/2020 8:32 PM DEPUT[employer] CHIEF SHERIFF 5,000 Units Abdo men-SC Given 03/28/2020 8:03 AM DEPUT[employer] CHIEF SHERIFF 5,000 Units Abdo men-SC ipratropium (ATROVENT) 0.02 % nebulizer solution 0.5 mg 0.5 mg, Inhalation, Q6HPRN, Starting Wed03/26/20 at 06 35, Until Discontinued, Routine, Wheezing, Shortness of Breath metoprolol tartrate (LOPRESSOR) tablet 2 5 mg Given 03/29/2020 7:37 PM DE[employer] CHIE[employer] SHERIFF 25 mg 25 mg, Oral, BID, First dose on Wed03/28/20 at 0800, Until Discontinued, Routine Given 03/29/2020 8:06 AM DE[employer] CHIEF SHERIFF 25 mg Given 03/28/2020 8:32 PM DEPUT[employer] CHIEF SHERIFF 25 mg midodrine (PROAMATINE) tablet 5 mg Given 03/29/2020 3:10 PM DEPUT[employer] CHIEF SHERIFF 5 mg 5 mg, Oral, QMON//WED, First dose on Wed03/27/20 at 1345, Until Discontinued, Routine Given 03/28/2020 3:46 PM DEPUT[employer] CHIEF SHERIFF 5 mg Given 03/27/2020 3:05 PM [employer] CHIEF SHERIFF 5 mg ondansetron (ZOFRAN (PF)) injection 4 mg Given 03/27/2020 8:38 AM DEPUT[employer] CHIEF SHERIFF 4 mg 4 mg, Slow IV Push, Q6HPRN, Starting Wed03/27/20 at 0836, Until Discontinued, Routine, Nausea and Vomiting (N/V) sennosides (SENOKOT) tablet 8.6 mg Given 03/29/2020 7:37 PM DEPUT[employer] CHIEF SHERIFF 8.6 mg 8.6 mg, Oral, BID, First dose (after last modification) on Mmii 03/28/20 at 2000, Until Discontinued, Routine Given 03/29/2020 8:06 AM [employer] CHIEF SHERIFF 8.6 mg Given 03/28/2020 8:31 PM DEPUT[employer] CHIEF SHERIFF 8.6 mg simethicone (GAS RELIEF (SIMETHICONE)) Given 03/29/2020 7:37 PM [employer] CHIEF SHERIFF 80 mg chewable tablet 80 mg 80 mg, Oral, PC+HS, First dose on Mimi 03/28/20 at 1315, Until Discontinued, Routine Given 03/29/2020 2:34 PM [employer]IE[employer]ERIFF 80 mg Given 03/29/2020 8:06 AM DEPUT[employer] CHIEF SHERIFF 80 mg Sliding Scale Insulin - Aspart Given 03/29/2020 8:07 AM DEPUT[employer] CHIEF SHERIFF 1 U nits Abdomen-SC (NOVOLOG) + Fsbg Testing Subcutaneous, Q4H, First dose on Wed03/26/20 at 1200, Until Discontinued, Routine Given 03/28/2020 11:13 AM DEPUT[employer] CHIEF SHERIFF 1 Units Left Upper Arm-SC Given 03/28/2020 8:04 AM DEPUT[employer] CHIEF SHERIFF 1 Units Abdo men-SC Medication Order MAR Action Action Date Dose Rate Site albumin (ALBUMINAR-5) 5 % Given 03/26/2020 2:57 PM [employer]PUT[employer] CHIEF SHERIFF 12.5 g injection 12.5 g 12.5 g, IV Infusion, ONCE, 1 dose, Wed03/26/20 at 1545, 250 mL, Indication: POST-OPERATIVE VOLUME RESUSCITATION-CARDIAC SURGERY, Comments: May only be used if 3L or more of crystalloid has been administered within a given 24 hour period without an adequate hemodynamic response. albumin (ALBUMINAR-5) 5 % injection 12.5 g Given 03/26/2020 10:35 PM DE[employer] CHIEF SHERIFF 12.5 g 12.5 g, IV Infusion, ONCE, 1 dose, Wed03/26/20 at 2330, 250 mL, Indication: POST-OPERATIVE VOLUME RESUSCITATION-CARDIAC SURGERY, Comments: May only be used if 3L or more of crystalloid has been administered within a given 24 hour period without an adequate hemodynamic response. amLODIPine (NORVASC) tablet 10 mg Given 03/19/2020 7:54 AM CDT 10 mg 10 mg, Oral, DAILY, First dose on 03/18/20 at 0900, Until Discontinued, Routine Given 03/18/2020 9:23 AM CDT 10 mg amLODIPine (NORVASC) tablet 10 mg Given 03/22/2020 8:25 AM CDT 10 mg 10 mg, Oral, DAILY, 3 doses, First dose (after last modification) on Mimi 03/21/20 at 0900, Last dose on 03/23/20 at 0900, Routine aspirin chewable tablet 81 mg Given 03/20/2020 9:42 AM CDT 81 mg 81 mg, Oral, DAILY, First dose on 03/18/20 at 0900, Until Discontinued, Routine Given 03/19/2020 7:54 AM CDT 81 mg Given 03/18/2020 9:23 AM CDT 81 mg aspirin chewable tablet 81 mg Given 03/24/2020 8:44 AM [employer]IE[employer]ERIFF 81 mg 81 mg, Oral, DAILY, First dose (after last modification) on [facility] 03/21/20 at 0900, Until Discontinued, Routine Given 03/23/2020 1:40 PM CDT 81 mg Given 03/22/2020 8:25 AM CDT 81 mg bisacodyL (DULCOLAX) suppository 10 mg Given 03/24/2020 8:32 PM DEPUT[employer] CHIEF SHERIFF 10 mg 10 mg, Rectal, PRE-PROCEDURE ONCE, 1 dose, Starting 03/24/20 at 1900, Until 03/24/20 at 203, Routine, [place]/Procedure bisacodyL (DULCOLAX) tablet 5 mg Given 03/22/2020 5:49 PM CDT 5 mg 5 mg, Oral, QDAILYPRN, Starting Wed03/22/20 at 1152, Until Wed03/25/20 at 1950, Routine, Constipation carvediloL (COREG) tablet 12.5 mg Given 03/18/2020 9:23 AM CDT 12.5 mg 12.5 mg, Oral, BID MEALS, First dose on 03/17/20 at 1700, Until Discontinued, Routine Given 2020 5:34 PM CDT 12.5 mg carvediloL (COREG) tablet 25 mg Given 03/24/2020 4:16 PM DEPUT[employer] CHIEF SHERIFF 25 mg 25 mg, Oral, BID MEALS, First dose (after last modification) on 03/18/20 at 1700, Until Discontinued, Routine Given 03/24/2020 8:44 AM DEPUT[employer] CHIEF SHERIFF 25 mg Given 03/23/2020 4:54 PM CDT 25 mg ceFAZolin (ANCEF) 1,000 mg in NaCl 0.9% Given 03/26/2020 2:30 P M DEPUT[employer] CHIEF SHERIFF 1,000 mg (NS) 50 mL MINI-BAG 1,000 mg, IV Piggyback, Q24H, 3 doses, First dose on Wed03/26/20 at 1300, Last dose on Wed03/28/20 at 1300, 50 mL, Reason for Anti-Infective: Surgical Prophylaxis, Surgical Prophylaxis: Cardiothoracic, Duration of therapy: within 24 hours of surgery cefTRIAXone (ROCEPHIN) 1,000 mg in NaCl Given 03/20/2020 9:41 A M CDT 1,000 mg 0.9% (NS) 50 mL MINI-BAG 1,000 mg, IV Piggyback, Q24H ABX, First dose on Wed03/19/20 at 0745, Until Discontinued, 50 mL, Reason for Anti-Infective: Empiric Therapy for Suspected Infection, Empiric Therapy Site: Urine, Duration of therapy: 7 days Given 03/19/2020 7:54 AM CDT 1,000 mg clopidogreL (PLAVIX) tablet 75 mg Given 03/19/2020 7:54 AM CDT 75 mg 75 mg, Oral, DAILY, First dose on Wed03/18/20 at 0900, Until Discontinued, Routine Given 03/18/2020 9:23 AM CDT 75 mg D5W 0.9% NaCl (NS) IV infusion New Bag 03/25/2020 8:00 PM DEPUT[employer] CHIEF SHERIFF 1,000 mL 50 mL/hr 1,000 mL at 50 mL/hr, 1,000 mL, IV Infusion, CONTINUOUS, Starting Wed03/25/20 at 2000, Until Wed03/26/20 at 0820, ABDIAS D5W 0.9% NaCl (NS) IV infusion New Bag 03/26/2020 9:54 AM DE[employer] CHIEF SHERIFF 1,000 mL 20 mL/hr 1,000 mL at 20 mL/hr, 1,000 mL, IV Infusion, CONTINUOUS, Starting Wed03/26/20 at 0830, Until Wed03/27/20 at 1335, ABDIAS docusate (COLACE) capsule 100 mg Given 03/28/2020 8:01 AM DEPUT[employer] CHIEF SHERIFF 100 mg 100 mg, Oral, DAILY, First dose on Wed03/26/20 at 0900, Until Discontinued, Routine Given 03/27/2020 8:21 AM DEPUT[employer] CHIEF SHERIFF 100 mg Given 03/26/2020 8:09 AM DEPUT[employer] CHIEF SHERIFF 100 mg enoxaparin (LOVENOX) injection 30 mg Given 03/24/2020 4:33 PM DEPUTY CHIEF SHERIFF 30 mg Abdo men-SC 30 mg, Subcutaneous, Q24H, First dose on Wed03/20/20 at 1500, Until Discontinued, Routine Given 03/23/2020 4:55 PM CDT 30 mg Abdo men-SC Given 03/22/2020 8:40 PM CDT 30 mg Abdo men-SC EPINEPHrine HCl in 0.9 % Rate Change 03/25/2020 11:02 PM 0.03 mcg/ kg/min 7.39 mL/hr NaCL 4 mg/250 mL (16 DEPUTY CHIEF SHERIFF mcg/mL) infusion RTU 0.01-0.7 mcg/kg/min 65.7 kg (2.4638-172.4625 mL/hr, rounded to 2.46-172.46 mL/hr), IV Infusion, TITRATE, MAP Goal > or = 65 mmHg, Starting Wed03/25/20 at 2109, Initiate rate at 0.01 mcg/kg/min. Titrate by 0.05 mcg/kg/min every 30 seconds to 10 minutes as needed to reach and maintain goal blood pressure. Maximum dose = 0.7 mcg/kg/min. If goal not maintained at maximum allowed dose, contact prescriber., Restarted 03/25/2020 10:29 PM DEPUTY CHIEF SHERIFF 0.05 mcg/kg/min 12.32 mL/hr Rate Change 03/25/2020 10:18 PM DEPUT[employer] CHIEF SHERIFF 0.01 mcg/kg/min 2.46 mL/hr FENTanyl EXTRUSION OPERATOR (5 mcg/mL NS) New Bag 03/26/2020 8:25 AM DEPUTY CHIEF SHERIFF 150 mcg 150 mcg, Intravenous, 30 mL, CONTINUOUS, Starting Wed03/25/20 at 2000, Until Wed03/26/20 at 1544 New Bag 03/25/2020 9:33 PM DEPUTY CHIEF SHERIFF 150 mcg FENTanyl PF (SUBLIMAZE (PF)) injection Given 03/19/2020 10:04 AM CDT 25 mcg Slow IV Push, TITRATE - FOR PROCEDURE USE, 1 dose, Starting Wed03/19/20 at 1004, Until Wed03/19/20 at 1004, Routine furosemide (LASIX) injection 40 mg Given 2020 8:45 AM CDT 40 mg 40 mg, IV Push, ONCE, 1 dose, [place] 03/17/20 at 0945, ABDIAS furosemide (LASIX) injection 40 mg Given 2020 9:17 AM CDT 40 mg 40 mg, IV Push, ONCE, 1 dose, [place] 03/17/20 at 0930, ABDIAS furosemide (LASIX) injection 40 mg Given 03/22/2020 8:39 PM CDT 40 mg 40 mg, Slow IV Push, Q12H, First dose (after last modification) on Wed03/20/20 at 0800, Until Discontinued, Routine Given 03/22/2020 8:26 AM CDT 40 mg Given 03/21/2020 8:52 PM CDT 40 mg furosemide (LASIX) injection 80 mg Given 03/19/2020 8:12 PM CDT 80 mg 80 mg, Slow IV Push, Q12H, First dose on [place] 03/17/20 at 2000, Until Discontinued, Routine Given 03/18/2020 7:50 PM CDT 80 mg Given 03/18/2020 9:24 AM CDT 80 mg heparin (1,000 unit/mL, 10 mL vial) for Given 03/18/20 9:38 PM CDT 3,000 Units Rebolusing FOR REBOLUSING, Starting [place] 03/17/20 at 1210, Until Wed03/20/20 at 1358, Routine, Dosing based on aPTT testing parameters (refer to continuous heparin drip order)., heparin (PF) 1,000 unit/mL injection Given 03/23/2020 8:20 AM C DT 1,500 Units 1,500 Units 1,500 Units, Slow IV Push, DIALYSIS ONCE - PT ROOM, 1 dose, 03/23/20 at 0800, Routine heparin (PF) 1,000 unit/mL injection Given 03/27/2020 3:[address] 1,500 Units 1,500 Units 1,500 Units, Slow IV Push, DIALYSIS ONCE - PT ROOM, 1 dose, Wed03/27/20 at 1500, Routine heparin (PF) 1,000 unit/mL injection Given 03/27/2020 5:[address] 1,500 Units 1,500 Units 1,500 Units, Slow IV Push, DIALYSIS ONCE - PT ROOM, 1 dose, 03/27/20 at 1500, Routine heparin (PF) 1,000 unit/mL injection Given 03/29/2020 4:[address] 1,500 Units 1,500 Units 1,500 Units, Slow IV Push, DIALYSIS ONCE - PT ROOM, 1 dose, Wed03/29/20 at 1615, Routine heparin (PF) 1,000 unit/mL injection Given 03/29/2020 4:[address] 1,500 Units 1,500 Units 1,500 Units, Slow IV Push, DIALYSIS ONCE - PT ROOM, 1 dose, 03/29/20 at 1615, Routine heparin 1000 unit/mL injection Soln Given 2020 12:46 PM CD T 4,000 Units 4,000 Units 4,000 Units, IV Push, ONCE, 1 dose, 03/17/20 at 1215, Routine heparin 25,000 Units/250 mL (Premixed Ba g) in 0.45 % NS New 03/20/2020 12.632 10.03 12 Units/kg/hr Bag 4:41 AM CDT Units/kg/hr mL/hr 79.4 kg (9.528 mL/hr, rounded to 9.53 mL/hr), IV Infusion, TITRATE, Parameters in Admin. Instr., Starting 03/17/20 at 1310, CAUTION - If LMWH given in ER, AVOID bolus and start next dose/drip 12 hrs after ER dosage. Must program rate using programmable infusion pump. Check with the ordering provider first prior to any administration should the patient be on existing/additional anticoagulant therapy. Range, Dosing and Testing: FOR [facility], AND [facility] ONLY - aPTT < 35: Bolus 5000 units, increase rate 300 units/hr - aPTT 35-44: Bolus 3000 units, increase rate 200 units/hr - aPTT 45-54: Increase rate 100 units/hr - aPTT 55-85: NO CHANGE - aPTT 86-95: Decrease rate 100 units/hr - aPTT 96-120: Hold 30 minutes, decrease rate 150 units/hr - aPTT > 120: Hold 60 minutes, decrease rate 200 units/hr Check aPTT 6 hours after initiation, then Q6H after every change, aPTT Q12H once therapeutic levels are reached. FOR [facility] ONLY - aPTT < 40: Bolus 5000 units, increase rate 300 units/hr - aPTT 40-49: Bolus 3000 units, increase rate 200 units/hr - aPTT 50-59: Increase rate 100 units/hr - aPTT 60-85: NO CHANGE - aPTT 86-95: Decrease rate 100 units/hr - aPTT 96-120: Hold 30 minutes, decrease rate 150 units/hr - aPTT > 120: Hold 60 minutes, decrease rate 200 units/hr Check aPTT 6 hours after initiation, then Q6H after every change, aPTT Q12H once therapeutic levels are reached. DO NOT ADJUST INITIAL BOLUS OR INITIAL INFUSION RATE., Dose/Rate Verify 03/19/2020 8:14 PM CDT 1,003 Units/hr 10.03 mL/hr Dose/Rate Verify 03/19/2020 8:00 PM CDT 1,003 Units/hr 10.03 mL/hr insulin glargine (LANTUS U-100) Given 03/24/2020 9:15 PM DEPUTY CHIEF SHERIFF 5 Units Abdomen-SC injection 10 Units 10 Units (rounded from 10.14 Units = 0.15 Units/kg/day 67.6 kg), Subcutaneous, QHS, First dose on Wed03/19/20 at 2100, Until Discontinued, Routine Given 03/23/2020 8:13 PM CDT 10 Units Abdo men-SC Given 03/22/2020 9:01 PM CDT 5 Units Righ t Upper Arm-SC insulin regular human Rate Change 03/26/2020 6:47 AM DEPUTY CHIEF SHERIFF 2 Units/hr 2 mL/hr (HUMULIN R) 100 Units in D5W 100 mL infusion 2 Units/hr (2 mL/hr), IV Infusion, TITRATE, Parameters in Admin. Instr., Starting 03/25/20 at 1949, If FSBG > 210 on admission or remains > 160 after 6 hours of admission start insulin infusion at 2 units/hr. Recheck FSBG q1h and titrate drip to achieve FSBG 120-160. If blood glucose remains less than 150 on <= 2 units/hr for 4h, stop insulin infusion, check blood glucose in 1h and resume sliding scale monitoring., Rate Change 03/26/2020 6:16 AM DEPUTY CHIEF SHERIFF 4 Units/hr 4 mL/hr Rate Change 03/26/2020 5:47 AM DEPUTY CHIEF SHERIFF 6 Units/hr 6 mL/hr lidocaine 1% (PF) (XYLOCAINE) injection Given 03/19/2020 10:05 AM CDT 10 mL Infiltration, TITRATE - FOR PROCEDURE USE, 1 dose, Starting Wed03/19/20 at 1005, Until Wed03/19/20 at 1005, Routine metoprolol tartrate (LOPRESSOR) half tablet Given 08/2019 11:14 PM DEPUTY CHIEF SHERIFF 12.5 mg 12.5 mg 12.5 mg, Oral, ONCE, 1 dose, 03/27/20 at 2300, Routine midazolam (VERSED) injection Given 03/19/2020 10:04 AM CDT 1 mg IV Push, TITRATE - FOR PROCEDURE USE, 1 dose, Starting Wed03/19/20 at 1004, Until Wed03/19/20 at 1004, Routine nitroglycerin (NITROSTAT) sublingual tablet Given 02/22 8:52 AM CDT 0.4 mg 0.4 mg 0.4 mg, Sublingual, ONCE, 1 dose, [place] 03/17/20 at 0945, ABDIAS nitroglycerin 50 mg in D5W Rate Change 2020 11:49 AM CDT 25 mcg/min 7.5 mL/hr 250 mL infusion RTU 5-200 mcg/min (1.5-60 mL/hr), IV Infusion, TITRATE, SBP<180, Starting [place] 03/17/20 at 1013, Initiate infusion at 5 mcg/min. Titrate by 5 mcg/min every 3 minutes to 5 minutes as needed to achieve and maintain goal blood pressure. Maximum dose = 200 mcg/min. If goal not maintained at maximum allowed dose, contact prescriber., Rate Change 2020 11:30 AM CDT 20 mcg/min 6 mL/hr Rate Change 2020 11:22 AM CDT 15 mcg/min 4.5 mL/hr NORepinephrine 4 mg in Rate Change 03/27/2020 6:00 0.01 mcg/kg/min 2 .46 mL/hr 0.9% NaCl 250 mL infusion AM DEPUTY CHIEF SHERIFF RTU 0.05-1.5 mcg/kg/min 65.7 kg (12.3188-369.5625 mL/hr, rounded to 12.32-369.56 mL/hr), IV Infusion, TITRATE, MAP Goal > or = 65 mmHg, Starting 03/25/20 at 1949, Initiate titration at 0.05 mcg/kg/min. Increase by 0.01 mcg/kg/min every 30 seconds to 5 minutes as needed to reach and maintain goal blood pressure. Maximum dose = 1.5 mcg/kg/min. If goal not maintained at maximum allowed dose, contact prescriber., Rate Change 03/26/2020 11:13 PM [employer] 0.03 mcg/kg/min 7.39 mL/hr Restarted 03/26/2020 11:06 PM [employer] 0.01 mcg/kg/min 2.46 mL/hr ondansetron (ZOFRAN (PF)) injection 4 mg Given 2020 9:11 AM CDT 4 mg 4 mg, Slow IV Push, ONCE, 1 dose, 03/17/20 at 1015, ABDIAS Polyethylene Glycol 3350 (MIRALAX) powde r 17 g Given 03/24/2020 8:44 AM DEPUTY CHIEF SHERIFF 17 g 17 g, Oral, DAILY, First dose on Wed03/22/20 at 1200, Until Discontinued, Routine Given 03/22/2020 12:36 PM CDT 17 g propofoL IV infusion Rate Change 03/25/2020 8:55 PM 30 mcg/kg/min 11.83 mL/hr 5-50 mcg/kg/min DEPUTY CHIEF SHERIFF 65.7 kg (1.971-19.71 mL/hr, rounded to 1.97-19.71 mL/hr), IV Infusion, TITRATE, Sedation-RASS score (0 to -1), Starting 03/25/20 at 1949, For 1 day, Initiate infusion at 5 mcg/kg/min and titrate by 5 mcg/kg/min every 30 seconds to 10 minutes to goal sedation score. Maximum dose = 50 mcg/kg/min. If goal not maintained at maximum allowed dose, contact prescriber. Instructions in the first 2 hours in ICU, if patient is hypertensive (systolic blood pressure persists > 150 MAP > 100), the infusion rate may be increased to a maximum of 50 mcg/kg/min. Stop propofol when bladder or other central temperature is => 36 C. May use morphine at this time (may require order to be entered) if sedation is still needed. Do not continue propofol after central temperature is > 36 C unless requested by [address] Resident or Faculty or SICU Faculty. Tubing and unused portions of vials should be discarded after 12 hours, New Bag 03/25/2020 8:00 PM DEPUTY CHIEF SHERIFF 20 mcg/kg/min 7.88 mL/hr Saline Bubble Study Given 03/18/2020 2:30 PM CDT 6 mL 6 mL, Injection, SEE-INSTRUCTIONS, 2 doses, Starting Wed03/18/20 at 1500, Until Wed03/20/20 at 0039, Routine Saline Bubble Study Given 03/18/2020 2:30 PM CDT 6 mL 6 mL, Injection, SEE-INSTRUCTIONS, 2 doses, Starting Wed03/18/20 at 1500, Until Wed03/20/20 at 0039, Routine sennosides (SENOKOT) tablet 8.6 mg Given 03/28/2020 8:02 AM DEPUTY CHIEF SHERIFF 8.6 mg 8.6 mg, Oral, DAILY, First dose on Wed03/26/20 at 0900, Until Discontinued, Routine Given 03/27/2020 8:21 AM DEPUTY CHIEF SHERIFF 8.6 mg Given 03/26/2020 8:10 AM DEPUTY CHIEF SHERIFF 8.6 mg sevelamer (RENVELA) tablet 1,600 mg Given 03/24/2020 4:16 PM DEPUTY CHIEF SHERIFF 1,600 mg 1,600 mg, Oral, TID MEALS, First dose on Wed03/18/20 at 1200, Until Discontinued, Routine Given 03/24/2020 1:16 PM DEPUTY CHIEF SHERIFF 1,600 mg Given 03/24/2020 8:44 AM DEPUTY CHIEF SHERIFF 1,600 mg Sliding Scale Insulin - Aspart Given 03/23/2020 1:46 PM CDT 1 U nits Abdomen-SC (NOVOLOG) + Fsbg Testing Subcutaneous, TID MEALS+HS, First dose on Wed03/19/20 at 1700, Until Discontinued, Routine Given 03/21/2020 8:53 PM CDT 1 Units Righ t Arm Given 03/20/2020 8:56 PM CDT 1 Units Abdo men-SC Sliding Scale Insulin - Aspart Given 03/25/2020 8:51 PM 1 Units Left Upper (NOVOLOG) + Fsbg Testing DEPUTY CHIEF SHERIFF Arm-SC Subcutaneous, Q4H, First dose on Wed03/25/20 at 2000, Until Discontinued, Routine sodium bicarbonate 1 mEq/mL (8.4 %) injection Given 10:02 PM DEPUTY CHIEF SHERIFF 15 mL 15 mL 15 mL, Slow IV Push, ONCE, 1 dose, Wed03/25/20 at 2245, Routine sulfur hexafluoride microsphr (LUMASON) Given 03/18/2020 9:30 A M CDT 5 mL injection 5 mL 5 mL, Intravenous, ONCE, 1 dose, Wed03/18/20 at 1615, Routine, retail team member approving Restricted medication: JUDI SINCLAIR documented in this encounter Additional Health Concerns Infection Onset Date Last Indicated Resolved Time COVID-19 Rule Out 2020 2020 2020 10: 34 AM CDT COVID-19 Rule Out 03/22/2020 03/22/2020 03/22/2020 5: 38 PM CDT documented as of this encounter Insurance Payer Benefit Plan Subscriber ID Effective Phone Address Typ e / Group Dates MEDICARE MEDICARE PART [id number] 2003-Pres [phone] Medicare A & B ent [id number] [place] [phone] 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
--- OUTSIDE RECORDS SUMMARY | 2020-05-30 21:34 | XMS REPORT | Summary of Care ---
:1945 Author Organization [facility] Address [address] [place] [id number] Care Team Providers Name Role Phone Pcp, Patient Does Not Have A Primary Care Provider +[id number] Ishmael Christie MD Unavailable Estephania Dsouza DO Unavailable LEONARDO James Unavailable Pcp-Lab Unavailable Unavailable DEISY Winn Unavailable Reason for Visit Auth/Cert Status Reason Specialty Diagnoses / Referred By Referred To Procedures Contact Contact Emergency Medicine [facility] Dept [address] [place] [phone] Fax: Encounter Details Date Type Department Care Team Description 04/09/2020 Anesthesia GI Endoscopy OR Depa rtElias Amaro MD [address] [place] [phone] 4.114 Clinical Science Kecia Leal CRNA [address] [place] [address] [place] [phone] Allergies No Known Allergiesdocumented as of this encounter (statuses as of 04/09/2020) Medications Medication Sig Dispensed Refills Start Date End Date Status clopidogreL 75 mg Take 1 tablet by 0 12/16/2019 Suspended tablet mouth daily. sevelamer 800 mg 2 tablets 3 0 02/07/2020 Suspended tablet (three) times daily with meals. clotrimazole 1 % Apply to 1 Tube 3 02/27/2020 Fernandez spended topical area(s) 2 (two) creamIndications: times daily. Fungal dermatosis Additional Information atorvastatin 20 mg Take 4 tablets by mouth 0 020 Suspended tabletIndications: S/P CABG x 2 at bedtime. Additional Information aspirin 81 mg chewable Take 1 tablet by mouth 0 11/2019 Suspended tabletIndications: S/P CABG x 2 daily. Additional Information docusate 100 mg capsuleIndications: Take 1 capsule by mouth 0 03/29/2020 Suspended S/P CABG x 2 2 (two) times daily. Additional Information metoprolol tartrate 25 mg Take 1 tablet by mouth 0 1 05/29/2019 Suspended tabletIndications: S/P CABG x 2 2 (two) times daily. Additional Information midodrine 5 mg tabletIndications: Take 1 tablet by mouth 0 04/01/2020 Suspended S/P CABG x 2 every Wednesday, Wednesday and Wednesday. Additional Information sennosides 8.6 mg Take 1 tablet by mouth 0 0 Suspended tabletIndications: S/P CABG x 2 2 (two) times daily. Additional Information simethicone 80 mg chewable Take 1 tablet by mouth 0 03/29/2020 Suspended tabletIndications: S/P CABG x 2 after meals and at bedtime. 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 05/02/2019 Malfunction of arteriovenous dialysis fistula, initial encounter 03/31/2019 Overview: Added automatically from request for [place] peoples [id number] Bilateral carotid artery stenosis 07/27/2018 Overview: Added automatically from [employer] for [place] [id number] TIA (transient ischemic attack) 05/29/2018 Dialysis patient 04/18/2018 ESRD (end stage renal disease) 01/03/2018 Overview: Added automatically from request for [place] peoples [id number] Diabetic polyneuropathy associated with type 2 diabete [...] HLD (hyperlipidemia) 02/26/2011 Overview: ICD10 Diagnosis Term Insulation Hoseman Utility Backache 08/05/2006 Overview: Lower back pain - totally disabled ICD10 Diagnosis Term Insulation Hoseman Utility Hearing loss 08/05/2006 Overview: Both ears ICD10 Diagnosis Term Insulation Hoseman Utility documented as of this encounter (statuses as of 04/09/2020) Resolved Problems Problem Noted Date Resolved Date CKD (chronic kidney disease) stage 4, GFR 15-29 ml/min 06/0304/29/2018 Need for vaccination 03/30/2017 04/29/2018 Uncontrolled type 2 diabetes mellitus with stage 4 chronic 1 04/29/2018 kidney disease, with long-term current use of insulin Type 2 diabetes mellitus with diabetic chronic kidney 201403/17/2016 disease documented as of this encounter (statuses as of 04/09/2020) Immunizations Name Administration Dates Next Due Influenza High Dose 03/02/2019, 02/22/2018, 03/30/2017, 2016, 03/12/2015, 03/15/2014, 03/02/2013, 03/19/2011 Influenza High Dose Quad 02/27/2020 Pneumococcal 13 Conjugate, PCV13 09/28/2016, 2016 (Prevnar 13) Pneumococcal Polysaccharide, PPSV23 03/19/2011 (PNEUMOVAX) Zoster(Zostavax)(Shingles) 09/28/2016 documented as of this encounter Social History Tobacco Use Types Packs/Day Years Used Date Former Smoker Cigarettes 06 07 Quit: 1989 Smokeless Tobacco: Never Used Alcohol Use Drinks/Week oz/Week Comments Not Currently quit 20 yrs ago Sex Assigned at Date Recorded Not on file COVID-19 Exposure Response Date Recorded In the last month, have you been in contact with No / Unsure 04/08/2020 6:17 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 documented as of this encounter Last Filed Vital Signs Not on filedocumented in this encounter OR Notes Anesthesia Postprocedure Evaluation - Elias Sanchez MD - 04/09/2020 5:19 PM CST Patient: Jose Adame Procedure Summary Date: 04/09/20 Room / Location: [place] [address] / Endoscopy ([facility]) OR Location Anesthesia Start: 1644 Anesthesia Stop: 1709 Procedure: ESOPHAGOGASTRODUODENOSCOPY (N/A Mouth) Diagnosis: Upper GI bleed (Upper GI bleed [K92.2]) Surgeon: Nayan Sanches MD Responsible Provider: Elias Sanchez MD Anesthesia Type: TIVA ASA Status: 4 Anesthesia Type: TIVA Last vitals BP 95/54 (04/09/201709) Temp Pulse 80 (04/09/201709) Resp 20 (04/09/201709) SpO2 94 % (04/09/201709) No complications documented. Anesthesia Post Evaluation Patient location during evaluation: PACU Patient participation: complete - patient participated Level of consciousness: awake and alert Pain score: 0 Pain management: satisfactory to patient Airway patency: patent Cardiovascular status: acceptable and blood pressure returned to baseline Respiratory status: acceptable Hydration status: acceptable ERN CHART WRITER Anesthesia Preprocedure Evaluation - Elias Sanchez MD - 04/09/2020 4:44 PM CST Name/ MRN / Age / Gender: Jose Adame [id number] 75 year old male BMI: Estimated body mass index is 24.02 kg/m as calculated from the following: Height as of 03/19/20: 1.676 m (5' 6"). Weight as of this encounter: 67.5 kg (148 lb 13 oz). Allergies: Patient has no known allergies. Last Vitals: BP Readings from Last 1 Encounters: 04/09/20 (!) 172/54 Pulse Readings from Last 1 Encounters: 04/09/20 81 SpO2 Readings from Last 1 Encounters: 04/09/20 100% Date of Surgery: 04/09/2020 Surgeon: Nayan Sanches MD Procedure: ESOPHAGOGASTRODUODENOSCOPY (N/A Mouth) OR Location: Endoscopy ([facility]) OR Location Anesthesia Preop Eval (physical exam) Anesthesia Preop: [id number] and Chart Review PONV Risk Factors: non-smoker and post-op opiate use anticipated PONV Risk Score: 2 Anesthesia History Anesthesia History Negative (-) Hx of anesthetic complications (-) Hx of PONV Previous Anesthetics/Airways Additional Comments: 10/04/2018 MAC 06/28/2018: Regional and MAC 03/26/2015: LMA #4 Cardiovascular Comments: Cardiac event monitor 02/2020: Sinus rhythm with occasional PVCs, no events recorded. EKG 02/2020: Normal sinus rhythm Possible Left atrial enlargement Right bundle branch block Cannot exclude Inferior infarct age undetermined TTE 03/18/20 Ejection Fraction = 50-55% LV normal size, mild eccentric hypertrophy. LV fxn low normal to mildly reduced.Mild global hypokinesis, with more marked hypokinesis of the inferobasal segments. Diastolic Dysfxn. LV filling pressure elevated. RV normal size, moderate RVH. RV size, function normal. No interatrial shunt. Atrial septum is aneurysmal. Mild mitral regurgitation. Trace tricuspid regurgitation. RAP 5-10 mmHg. Aortic valve is mildly thickened and calcified. There is no pericardial effusion. 03/20/20: Carotid duplex: 50-79% Bilateral Internal Carotid artery stenosis (+) Hypertension (amlodipine, lasix, carvedilol) and well controlled (+) Dyslipidemia (+) Hx of echocardiogram within past 5 years (+) Recent EKG (-) Angina/ Chest Pain (+) CAD Pulmonary (-) Sleep apnea (-) COPD (-) Asthma Tobacco use: former, quit 20 years ago after 15 year history. (-) Influenza within the past 6 weeks Neuro/Musculoskeletal Comments: 05/29/2018 MRI done and it showed an acute right frontal infarct. ECHO - no PFO. Stroke is most likely embolic. 05/29/2018 CT Stroke Head wo contrast No acute intracranial abnormality is identified. Background of microvascular ischemic changes Diabetic polyneuropathy (+) CVA (TIA 05/29/28 to 05/31/18 admitted for facial droop, dysarthria and left arm weakness) (+) Carotid stenosis Carotid Doppler: Yes (-) Positioning limitations Obesity: BMI 26.47kg. GI/Hepatic Negative GI/Hepatic ROS Hematology Comments: 03/20/2020 04:21 HGB: 11.5 (L) HCT: 33.7 (L) PLT x10^3: 176 (+) Anemia (-) Prior blood transfusion (+) On anti-coagulant therapy (ASA 81 mg, Plavix) Renal Comments: Results for JOSE ADAME ( ) as of 03/25/2020 12:35 03/25/2020 03:53 NA: 128 (L) K: 4.8 CL: 88 (L) CO2 TOTAL: 25 AGAP: 15 BUN: 79 (H) GLUCOSE: 126 (H) CREATININE: 8.18 (H) eGFR CALCULATION (non ): 6.4 eGFR CALCULATION (): 7.8 CALCIUM: 9.7 MAGNESIUM: 2.5 (H) H/o prostate cancer s/p resection, mixed urinary incontinence S/p left radial cephalic AVF creation (+) Renal disease and ESRD (+) Dialysis (MWF) and hemodialysis Skin Negative Skin ROS (+) Current IV access (-) Rash Endo/Other (+) Diabetes Mellitus and Rx Insulin Other Tobacco use: former, quit 20 years ago after 15 year history. History of alcohol use: quit 20 years ago. 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 Hold on DOS. Anticoagulant Therapy: Defer to surgeons Phentermine: Alert [facility] anesthesiologist MAC Cases: Continue taking ILEANA inhibitors and ARBs ASA Classification ASA: 4 Current Medications: No outpatient medications have been marked as taking for the 04/08/20 encounter (Hospital Encounter). Previous Surgeries: Past Surgical History: Procedure Laterality Date ANGIOPLASTY Left 03/15/2018 Surgeon: Compa Beltran; [facility] ANGIOPLASTY Left 06/28/2018 Surgeon: Compa Beltran; [facility] ANGIOPLASTY Left 12/12/2019 Surgeon: Carlos Wilkins MD; [facility]: [facility] ARTERIOVENOUS FISTULA CREATION Left 01/14/2018 Surgeon: Compa Beltran; Location: [facility] Location ARTERIOVENOUS FISTULA CREATION Left 2018 Left arm BACK SURGERY 2005 BLADDER NECK INCISION N/A 03/26/2015 Surgeon: Robert To; [facility]: [facility] BLADDER NECK INCISION N/A 06/19/2015 Surgeon: Robert To; Location: [facility] CAROTID ANGIOGRAPHY Bilateral 08/09/2018 Surgeon: Phi Perdue Jr., MD; Location: [facility] Location CORONARY ARTERY BYPASS GRAFT N/A 03/25/2020 Surgeon: Cornel Whitehead MD; Location: [facility] Location CYSTOSCOPY N/A 03/25/2020 Surgeon: Keegan Valverde MD; Location: [facility] Location ENDOSCOPIC VEIN HARVEST (SHX) Left 03/25/2020 Surgeon: Cornel Whitehead MD; [facility]: [facility] ENDOVASCULAR UPPER EXTREMITY ANGIOPLASTY Left 04/04/2019 Surgeon: Ezequiel Cazares MD; Location: [facility] EXTRACAPSULAR CATARACT EXTRACTION WITH INTRAOCULAR LENS IMPLANT Bilateral 2011 Both eyes FISTULOGRAM Left 03/15/2018 Surgeon: Compa Beltran; Location: [facility] Location FISTULOGRAM Left 06/28/2018 Surgeon: Compa Beltran; Location: [facility] FISTULOGRAM Left 10/04/2018 Surgeon: Shiv Hough MD; Location: [facility] INTRAOPERATIVE FISTULOGRAM Left 04/04/2019 Surgeon: Ezqeuiel Cazares MD; Location: [facility] PROSTATECTOMY RADICAL RETROPUBIC PROSTATECTOMY N/A 01/08/2015 Surgeon: Robert To; Location: [facility] SPINE SURGERY 2001 Lumbar spine surgery TRANSURETHRAL INCISION OF BLADDER NECK 03/26/2015 VASCULAR STENTING Left 06/28/2018 Surgeon: Compa Beltran; Location: [facility] Location Anesthesia Physical Exam General no apparent distress and alert and oriented x 3 Neuro/Psych neurological Dental poor dentition Abdominal GI exam normal Airway Mallampati score:II TM distance:> 5 cm Neck ROM: full Mouth opening:normal Extremity Normal extremity Pulmonary pulmonary exam normal Other Cardiovascular cardiovascular exam normal Anesthesia Plan ASA Status: 4 Anesthetic plan on DOS: TIVA Plan to include: IV induction Post-Operative Analgesia: routine analgesia & antiemetics Recovery Plan: PACU Additional comments: ERN CHART WRITER documented in this encounter Plan of Treatment Date Type Specialty Care Team Description 04/11/2020 Office Visit Thoracic Surgery Cornel Whitehead MD [address] [place] [phone] 05/28/2020 Office Visit Geriatric Medicine Loren Christie MD [address] [place] [address] [address] [place], [place] [address] Health Maintenance Due Date Last Done Comments DTaP,Tdap,and Td Vaccines (1 - 1962 Tdap) Medicare Wellness Visit 2008 Zoster Recombinant Vaccine 11/23/2016 09/28/2016 (SHINGRIX) (2 of 3) FOOT EXAM 05/19/2019 05/19/2018, 05/19/2018, 04/28/2018, Additional history exists EYE EXAM 10/14/2019 10/13/2018, 10/07/2017, 10/07/2017, Additional history exists HgA1C 09/15/2020 2020, 11/28/2019, 05/29/2018, Additional history exists LDL-C 2021 2020, 05/29/2018, 04/19/2018, Additional history exists CREATININE (SERUM) 04/08/2021 04/08/2020, 03/28/2020, 03/27/2020, Additional history exists Depression Screening 04/09/2021 04/09/2020 PNEUMOCOCCAL VACCINES 65+ Completed 09/28/2016, 2016 , 03/19/2011 INFLUENZA VACCINE Completed 02/27/2020, 03/02/2019, 02/22/2018, Additional history exists documented as of this encounter Implants Implanted Type Area Associate Professor Of Kinesiology Device Shelf Model / Identifier Expiration Serial / Date Lot Devonteix .035 4mm X 40mm X 75cm 5fr Bard#[id number] - Sn/A Papi n Left: Arm Bard 07/30/2020 [id number] / Implanted: Qty: 1 on 03/15/2018 by Compa Catherine MD at [facility] N/A / [id number] Angio-Seal Evolution Vascular Closure Device [employer] #[id number] - S0 OCCLUSION Right: Terumo 09/20/2018 [id number] / Implanted: Qty: 1 on 08/09/2018 by Phi Perdue Jr., MD at [facility] DEVICE Groin 0 / [id number] Stent, [place] [id number] Viabahn Vasc 120cm Cath #[id number] - S [id number] STENT Left: Arm W L [place] 02/01/2021 [id number] / Implanted: Qty: 1 on 06/28/2018 by Compa Catherine MD at [facility] [id number] / NA documented as of this encounter Results Not on filedocumented in this encounter Administered Medications Medication Order MAR Action Action Date Dose Rate Site lidocaine 1% (XYLOCAINE) 100 mg/10 Given 04/09/2020 4:53 PM PATTERN CHART WRITER 5 mL mL (1 %) injection ONCE INTRA PROCEDURE, Starting 04/09/20 at 1653, Until 04/09/20 at 1711, Routine, Intra-op NaCl 0.9% (NS) IV infusion New Bag 04/09/2020 4:45 PM PATTERN CHART WRITER CONTINUOUS PRN, Starting 04/09/20 at 1645, Until 04/09/20 at 1711, Routine, Intra-op PHENYLephrine 1000 mcg/10 mL in 0.9% NaCl Given 04/09/2020 4:57 PM PATTERN CHART WRITER 50 mcg syringe ONCE INTRA PROCEDURE, Starting 04/09/20 at 1656, Until 04/09/20 at 1711, Routine, Intra-op Given 04/09/2020 4:56 PM PATTERN CHART WRITER 50 mcg propofoL IV infusion Given 04/09/2020 4:58 PM PATTERN CHART WRITER 10 mg Slow IV Push, ONCE INTRA PROCEDURE, Starting 04/09/20 at 1653, Until 04/09/20 at 1711, Routine, Intra-op Given 04/09/2020 4:56 PM PATTERN CHART WRITER 10 mg Given 04/09/2020 4:54 PM PATTERN CHART WRITER 10 mg documented in this encounter Insurance Payer Benefit Plan Subscriber ID Effective Phone Address Typ e / Group Dates MEDICARE MEDICARE PART [id number] 2003-Pres 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
--- OUTSIDE RECORDS SUMMARY | 2020-05-30 21:34 | XMS REPORT | Summary of Care ---
:1945 Author Organization [facility] Address [address] [place] [address] Care Team Providers Name Role Phone Pcp, Patient Does Not Have A Primary Care Provider +[phone] 0-0000 Edi Christie MD Unavailable Estephania Dsouza DO Unavailable LEONARDO James Unavailable Pcp-Lab Unavailable Unavailable DEISY Winn Unavailable Encounter Details Date Type Department Care Team Description 04/08/2020 Orders Only [facility] Doctor Unassigned, No [address] [facility] [place] [address] [address] [place] [address] Allergies No Known Allergiesdocumented as of this encounter (statuses as of 04/08/2020) Medications Medication Sig Dispensed Refills Start Date [...] 4 tablets by 0 03/29/2020 Active tabletIndications: S/P mouth at bedtime. CABG x 2 aspirin 81 mg chewable Take 1 tablet by 0 03/30/2020 Active tabletIndications: S/P mouth daily. CABG x 2 docusate 100 mg Take 1 capsule by 0 03/29/2020 Active capsuleIndications: mouth 2 (two) S/P CABG x 2 times daily. metoprolol tartrate 25 Take 1 tablet by 0 03/29/2020 Active mg tabletIndications: mouth 2 (two) S/P CABG x 2 times daily. midodrine 5 mg Take 1 tablet by 0 04/01/2020 Active tabletIndications: S/P mouth every CABG x 2 Wednesday, Wednesday and Wednesday. sennosides 8.6 mg Take 1 tablet by 0 03/29/2020 Active tabletIndications: S/P mouth 2 (two) CABG x 2 times daily. simethicone 80 mg Take 1 tablet by 0 03/29/2020 Active chewable mouth after meals tabletIndications: S/P and at bedtime. 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 05/02/2019 Malfunction of arteriovenous dialysis fistula, initial encounter 03/31/2019 Overview: Added automatically from request for israel shelton [id number] Bilateral carotid artery stenosis 07/27/2018 Overview: Added automatically from request for [place] shelton [id number] TIA (transient ischemic attack) 05/29/2018 Dialysis patient 04/18/2018 ESRD (end stage renal disease) 01/03/2018 Overview: Added automatically from request for israel shelton [id number] Diabetic polyneuropathy associated with type 2 diabete s mellitus 06/13/2015 Cancer of prostate with intermediate recurrence risk ( stage T2b-c or 11/13/2014 [place] 7 or PSA 10-20) Undiagnosed cardiac murmurs 01/05/2013 Diabetes mellitus due to underlying condition, control led, with chronic 02/26/2011 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 Essential hypertension, benign 02/26/2011 HLD (hyperlipidemia) 02/26/2011 Overview: ICD10 Diagnosis Term Planning Engineer Utility Backache 08/05/2006 Overview: Lower back pain - totally disabled ICD10 Diagnosis Term Planning Engineer Utility Hearing loss 08/05/2006 Overview: Both ears ICD10 Diagnosis Term Planning Engineer Utility documented as of this encounter (statuses as of 04/08/2020) Resolved Problems Problem Noted Date Resolved Date CKD (chronic kidney disease) stage 4, GFR 15-29 ml/min 06/0304/29/2018 Need for vaccination 03/30/2017 04/29/2018 Uncontrolled type 2 diabetes mellitus with stage 4 chronic 1 04/29/2018 kidney disease, with long-term current use of insulin Type 2 diabetes mellitus with diabetic chronic kidney 201403/17/2016 disease documented as of this encounter (statuses as of 04/08/2020) Immunizations Name Administration Dates Next Due Influenza [...] Office Visit Thoracic Surgery Cornel Whitehead MD [address] [place] [address] KAYLEEN Dunlap [phone] 05/28/2020 Office Visit Geriatric Medicine Loren Christie MD [address] [facility] [address] [place] [address] Health Maintenance Due Date Last Done [...] of this encounter Implants Implanted Type Area Policy Adviser Device Shelf Model / Identifier Expiration Serial / Date Lot Lutonix .035 4mm X 40mm X 75cm 5fr Bard#[id number] - Sn/A Balloo n Left: Arm Bard 07/30/2020 [id number] / Implanted: Qty: 1 on 03/15/2018 by Compa Catherine MD at [facility] N/A / [id number] Angio-Seal Evolution Vascular Closure Device [employer] M edical #[id number] - S0 OCCLUSION Right: Terumo 09/20/2018 [id number] / Implanted: Qty: 1 on 08/09/2018 by Phi Perdue Jr., MD at [facility] DEVICE Groin 0 / [id number] Stent, [place] [id number] Viabahn Vasc 120cm Cath #[id number] - S [id number] STENT Left: Arm W L [place] 02/01/2021 [id number] / Implanted: Qty: 1 on 06/28/2018 by Compa Catherine MD at [facility] [id number] / NA documented as of this encounter Procedures Procedure Name Priority Date/Time Associated Diagnosis Comme nts EXTERNAL PROVIDER Routine 04/08/2020 12:01 AM IMPORT COORDINATOR RECORDS documented in this encounter Results Not on filedocumented in this encounter Insurance Payer Benefit Plan / Subscriber ID Effective Dates Phone Addre ss Type Group MEDICARE MEDICARE PART [id number] 2003-Prese [phone] Medicare A & B [place] 2 [id number] [place] [address] [facility] MEDICAID OF [id number] 2016-Presen [phone] [address] Medicaid [facility] 0 [id number] [place] [address] MEDICARE MEDICARE PART [id number] 2003-Prese [phone] 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
--- OUTSIDE RECORDS SUMMARY | 2020-05-30 21:34 | XMS REPORT | Summary of Care ---
:1945 Author Organization [facility] Address [address] [place] [address] Care Team Providers Name Role Phone Pcp, Patient Does Not Have A Primary Care Provider +[phone] 0-0000 Edi Christie MD Unavailable Estephania Dsouza DO Unavailable LEONARDO James Unavailable Pcp-Lab Unavailable Unavailable DEISY Winn Unavailable Reason for Visit Reason Comments Abnormal Lab Encounter Details Date Type Department Care Team Description 04/08/2020 Telephone [facility] and Leidy Cherry FNP Abnormal Lab Clinics [address] [address] [place] [address] Allergies No Known Allergiesdocumented as of this [...] Cyn gill 03/25/2020 Coronary artery disease involving [place] coronary sarah ry of [place] heart 03/19/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 ESRD (end stage renal disease) 03/19/2020 Dialysis patient 03/19/2020 Essential hypertension 03/19/2020 Dyspnea 2020 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 05/02/2019 Malfunction of arteriovenous dialysis fistula, initial encounter 03/31/2019 Overview: Added automatically from request for [place] [id number] Bilateral carotid artery stenosis 07/27/2018 Overview: Added automatically from request for [place] [id number] TIA (transient ischemic attack) 05/29/2018 Dialysis patient 04/18/2018 ESRD (end stage renal disease) 01/03/2018 Overview: Added automatically from request for [place] shelton [id number] Diabetic polyneuropathy associated with type 2 diabete s mellitus 06/13/2015 Cancer of prostate with intermediate recurrence risk ( stage T2b-c or 11/13/2014 [place] 7 or PSA 10-20) Undiagnosed cardiac murmurs 01/05/2013 Diabetes mellitus due to underlying condition, control led, with chronic 02/26/2011 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 Essential hypertension, benign 02/26/2011 HLD (hyperlipidemia) 02/26/2011 Overview: ICD10 Diagnosis Term Dining Room Busser Utility Backache 08/05/2006 Overview: Lower back pain - totally disabled ICD10 Diagnosis Term Dining Room Busser Utility Hearing loss 08/05/2006 Overview: Both ears ICD10 Diagnosis Term Dining Room Busser Utility documented as of this encounter (statuses [...] this encounter Miscellaneous Notes Telephone Encounter - Leidy Cherry FNP - 04/08/2020 4:38 PM CSTReceived call from [facility] that our patient now has a Hgb 4.9 and is hemodynamically stable. Medical records received from [facility] and are now scanned in. Advised them to send patient to ER. Please contact CT surgery for admission on arrival to ED. Float pager # [phone] ZAINAB Stafford Cardiovascular Surgery ATIONS SUPERINTENDENT documented in this encounter Plan of Treatment Date Type Specialty Care Team Description 04/11/2020 Office Visit Thoracic Surgery Cornel Whitehead MD [address] [place] [address] 77 [phone] 05/28/2020 Office Visit Geriatric Medicine Loren Christie MD [address] [place] [address] [address] [place], [place] [address] Health Maintenance Due Date [...] of this encounter Implants Implanted Type Area Physics Technician Device Shelf Model / Identifier Expiration Serial / Date Lot Kiki Royal035 4mm X 40mm X 75cm 5fr Bard#[id number] - Sn/A Papi n Left: Arm Bard 07/30/2020 [id number] / Implanted: Qty: 1 on 03/15/2018 by Compa Catherine MD at [facility] N/A / [id number] Angio-Seal Evolution Vascular Closure Device [employer] [place] M edical #[id number] - S0 OCCLUSION Right: Terumo 09/20/2018 [id number] / Implanted: Qty: 1 on 08/09/2018 by Phi Perdue Jr., MD at [facility] DEVICE Groin 0 / [id number] Stent, [place] [id number] Viabahn Vasc 120cm Cath #[id number] - S [id number] STENT Left: Arm W L [place] 02/01/2021 [id number] / Implanted: Qty: 1 on 06/28/2018 by Compa Catherine MD at [facility] [id number] / NA documented as of this encounter Results Not on filedocumented in this encounter Insurance Payer Benefit Plan / Subscriber ID Effective Dates Phone Addre ss Type Group MEDICARE MEDICARE PART [id number] 2003-Prese [phone] [address] Medicare A & B nt 2 [id number] [place] [address] [facility] MEDICAID OF [id number] 2016-Presen [phone] [address] Medicaid [place] t 0 [id number] [place] [address] MEDICARE MEDICARE PART [id number] 2003-Prese [phone] [address] Medicare A & B nt 2 [id number] [place] [address] documented as of this encounter Advance Directives Type Date Recorded Patient Photo Checker Explanati on Advance Directives and Living 01/25/2015 10:11 AM Will Power of Gut Carrier 01/25/2015 10:11 AM
--- OUTSIDE RECORDS SUMMARY | 2020-05-30 21:35 | XMS REPORT | Summary of Care ---
:1945 Author Organization [facility] Address [address] [place] [address] Care Team Providers Name Role Phone Pcp, Patient Does Not Have A Primary Care Provider +1-000-00 0-0000 Edi Christie MD Unavailable Estephania Dsouza DO Unavailable LEONARDO James Unavailable Pcp-Lab Unavailable Unavailable DEISY Winn Unavailable Reason for Visit Reason Comments Notification Orders Home Health Encounter Details Date Type Department Care Team Description 04/11/2020 Telephone [facility] Geriatrics- Loren Christie, Notification; Orders; Fabi OLMEDO [facility] [address], [address] [address] [place] [phone] Allergies No Known Allergiesdocumented as of this encounter (statuses as of 04/11/2020) Medications Medication Sig Dispensed Refills Start Date End Date Status sevelamer 800 mg 2 tablets 3 0 02/07/2020 Active tablet (three) times daily with meals. clotrimazole 1 % Apply to 1 Tube 3 02/27/2020 Ac tive topical area(s) 2 (two) creamIndications: times daily. Fungal dermatosis docusate 100 mg Take 1 capsule 60 capsule 0 04/11/2020 020 Active capsuleIndications: by mouth 2 (two) S/P CABG x 2 times daily for 30 days. atorvastatin 20 mg Take 4 tablets 90 tablet 1 04/11/2020 Active tabletIndications: by mouth at S/P CABG x 2 bedtime. metoprolol tartrate Take 1 tablet by 60 tablet 2 04/11/2020 Active 25 mg mouth 2 (two) tabletIndications: times daily. S/P CABG x 2 aspirin 81 mg Take 1 tablet by 90 tablet 1 04/11/2020 Active chewable mouth daily. tabletIndications: S/P CABG x 2 amLODIPine 5 mg Take 1 tablet by 90 tablet 1 04/11/2020 Active tabletIndications: mouth daily. Essential hypertension, benign famotidine 20 mg Take 1 tablet by 60 tablet 1 04/11/2020 Active tabletIndications: mouth 2 (two) Upper GI bleed times daily. pantoprazole 40 mg EC Take 1 tablet by 60 tablet 1 04/11/2020 Active tabletIndications: mouth 2 (two) Upper GI bleed times daily. polyethylene glycol Take 17 g by 0 04/11/2020 Active 17 gram/dose mouth 2 (two) powderIndications: times daily as S/P CABG x 2 needed for Constipation. sodium bicarbonate Take 1 tablet by 0 04/11/2020 Active 650 mg mouth 3 (three) tabletIndications: times daily. ESRD (end stage renal disease) furosemide 80 mg Take 1 tablet by 0 04/11/2020 Active tabletIndications: mouth daily. 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 05/02/2019 Malfunction of arteriovenous dialysis fistula, initial encounter 03/31/2019 Overview: Added automatically from request for israel peoples [id number] Bilateral carotid artery stenosis 07/27/2018 Overview: Added automatically from request for israel peoples [id number] TIA (transient ischemic attack) 05/29/2018 Dialysis patient 04/18/2018 ESRD (end stage renal disease) 01/03/2018 Overview: Added automatically from request for israel peoples [id number] Diabetic polyneuropathy associated with type 2 diabete [...] HLD (hyperlipidemia) 02/26/2011 Overview: ICD10 Diagnosis Term Relief Pilot Utility Backache 08/05/2006 Overview: Lower back pain - totally disabled ICD10 Diagnosis Term Relief Pilot Utility Hearing loss 08/05/2006 Overview: Both ears ICD10 Diagnosis Term Relief Pilot Utility documented as of this encounter (statuses as of 04/11/2020) Resolved Problems Problem Noted Date Resolved Date CKD (chronic kidney disease) stage 4, GFR 15-29 ml/min 06/0304/29/2018 Need for vaccination 03/30/2017 04/29/2018 Uncontrolled type 2 diabetes mellitus with stage 4 chronic 1 04/29/2018 kidney disease, with long-term current use of insulin Type 2 diabetes mellitus with diabetic chronic kidney 201403/17/2016 disease documented as of this encounter (statuses as of 04/11/2020) Immunizations Name Administration Dates Next Due Influenza [...] with No / Unsure 04/08/2020 6:17 PM OCC THERAPY ASST someone who was confirmed or suspected to have 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 documented as of this encounter Last Filed Vital Signs Not on filedocumented in this encounter Miscellaneous Notes Telephone Encounter - Tate Bledsoe RN - 04/11/2020 3:29 PM CSTPer HH they received the patient's discharge orders for HH and will be sending over the orders for the PCP to sign. elephone Encounter - Sabrina Buckley - 04/11/2020 11:39 AM [facility] orders. Please advise Call back# [phone] ask for Lulu documented in this encounter Plan of Treatment Date Type Specialty Care Team Description 04/25/2020 Office Visit Thoracic Surgery Cornel Whitehead MD [address] [place] [address] [phone] 05/08/2020 Office Visit Cardiology William Church MD [address] [facility] 6th Floor [place] [address] [phone] 05/27/2020 Office Visit Gastroenterology Kendell Kingston MD [address] [place] [address] [phone] 05/28/2020 Office Visit Geriatric Medicine Loren Christie MD [address] [place] [address] [address] [place] [phone] Health Maintenance Due Date Last Done Comments DTaP,Tdap,and Td Vaccines (1 - 1962 Tdap) Medicare Wellness Visit 2008 Zoster Recombinant Vaccine 11/23/2016 09/28/2016 (SHINGRIX) (2 of 3) FOOT EXAM 05/19/2019 05/19/2018, 05/19/2018, 04/28/2018, Additional history exists EYE EXAM 10/14/2019 10/13/2018, 10/07/2017, 10/07/2017, Additional history exists HgA1C 09/15/2020 2020, 11/28/2019, 05/29/2018, Additional history exists LDL-C 2021 2020, 05/29/2018, 04/19/2018, Additional history exists Depression Screening 04/09/2021 04/09/2020 CREATININE (SERUM) 04/10/2021 04/10/2020, 04/09/2020, 04/08/2020, Additional history exists PNEUMOCOCCAL VACCINES 65+ Completed 09/28/2016, 2016 , 03/19/2011 INFLUENZA VACCINE Completed 02/27/2020, 03/02/2019, 02/22/2018, Additional history exists documented as of this encounter Implants Implanted Type Area Bump Grader Operator Device Shelf Model / Identifier Expiration Serial / Date Lot Lutonix .035 4mm X 40mm X 75cm 5fr Bard#[id number] - Sn/A Balloo n Left: Arm Bard 07/30/2020 [id number] / Implanted: Qty: 1 on 03/15/2018 by Compa Catherine MD at [facility] N/A / [id number] Angio-Seal Evolution Vascular Closure Device [employer] M edical #[id number] - S0 OCCLUSION Right: Terumo 09/20/2018 [id number] / Implanted: Qty: 1 on 08/09/2018 by Phi Perdue Jr., MD at [facility] DEVICE Groin 0 / [id number] Stent, [place] [id number] Viabahn Vasc 120cm Cath #[id number] - S [id number] STENT Left: Arm W L [place] 02/01/2021 [id number] / Implanted: Qty: 1 on 06/28/2018 by Compa Catherine MD at [facility] [id number] / NA documented as of this encounter Results Not on filedocumented in this encounter Insurance Payer Benefit Plan Subscriber ID Effective Phone Address Typ e / Group Dates MEDICARE MEDICARE PART [id number] 2003-Pres [phone] Medicare A & B ent [id number] [place] [phone] [facility] MEDICAID OF [id number] 2016-Prese [phone] [address] Med icaid [place] [address] [id number] [place] [address] MEDICARE MEDICARE PART [id number] 2003-Pres [phone] [address] Medicare A & B ent [id number] [place] [phone] [facility] [id number] 2016-Prese Medic aid HEALTHCARE COMM STAR PLUS nt PLAN - MANAGED MEDICAID documented as of this encounter Advance Directives Type Date Recorded Patient Clinical Account Manager Explanati on Advance Directives and Living 01/25/2015 10:11 AM Will Power of Branch Administrator 01/25/2015 10:11 AM
--- OUTSIDE RECORDS SUMMARY | 2020-05-30 21:35 | XMS REPORT | Summary of Care ---
:1945 Author Organization [facility] Address [address] [place] [address] Care Team Providers Name Role Phone Loren Christie MD Unavailable Estephania Dsouza DO Unavailable LEONARDO James Unavailable Pcp-Lab Unavailable Unavailable DEISY Winn Unavailable Edi Christie MD Primary Care Provider Reason for Visit Reason Comments Medication Problem Encounter Details Date Type Department Care Team Description 04/12/2020 Case Management [facility] Leidy Cherry Problem Cardiothoracic L, ORDER PACKER Surgery-[address], [address] [phone] [place], [place] [phone] (Fax) [phone] Allergies No Known Allergiesdocumented as of this encounter (statuses as of 04/12/2020) Medications Medication Sig Dispensed Refills Start Date End Date Status sevelamer 800 mg 2 tablets 3 0 02/07/2020 Active tablet (three) times daily with meals. clotrimazole 1 % Apply to 1 Tube 3 02/27/2020 Ac tive topical area(s) 2 creamIndications: (two) times Fungal dermatosis daily. docusate 100 mg Take 1 60 capsule 0 04/11/2020 Ac tive capsuleIndications capsule by 0 : S/P CABG x 2 mouth 2 (two) times daily for 30 days. metoprolol Take 1 60 tablet 2 04/11/2020 Active tartrate 25 mg tablet by tabletIndications: mouth 2 S/P CABG x 2 (two) times daily. aspirin 81 mg Take 1 90 tablet 1 04/11/2020 Activ e chewable tablet by tabletIndications: mouth daily. S/P CABG x 2 amLODIPine 5 mg Take 1 90 tablet 1 04/11/2020 Act francisco tabletIndications: tablet by Essential mouth daily. hypertension, benign famotidine 20 mg Take 1 60 tablet 1 04/11/2020 Ac tive tabletIndications: tablet by Upper GI bleed mouth 2 (two) times daily. pantoprazole 40 mg Take 1 60 tablet 1 04/11/2020 Active EC tablet by tabletIndications: mouth 2 Upper GI bleed (two) times daily. polyethylene Take 17 g by 0 04/11/2020 Act francisco glycol 17 mouth 2 gram/dose (two) times powderIndications: daily as S/P CABG x 2 needed for Constipation . sodium bicarbonate Take 1 0 04/11/2020 Active 650 mg tablet by tabletIndications: mouth 3 ESRD (end stage (three) renal disease) times daily. furosemide 80 mg Take 1 0 04/11/2020 Ac tive tabletIndications: tablet by ESRD (end stage mouth daily. renal disease) atorvastatin 80 mg Take 1 90 tablet 1 04/12/2020 Active tabletIndications: tablet by S/P CABG x 2 mouth at bedtime. atorvastatin 20 mg Take 4 90 tablet 1 04/11/2020 Discontinued tabletIndications: tablets by 0 (Reorder) S/P CABG x 2 mouth at bedtime. 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 05/02/2019 Malfunction of arteriovenous dialysis fistula, initial encounter 03/31/2019 Overview: Added automatically from [employer] [place] [id number] Bilateral carotid artery stenosis 07/27/2018 Overview: Added automatically from [employer] [id number] TIA (transient ischemic attack) 05/29/2018 Dialysis patient 04/18/2018 ESRD (end stage renal disease) 01/03/2018 Overview: Added automatically from [employer] [id number] Diabetic polyneuropathy associated with type 2 diabete s mellitus 06/13/2015 Cancer of prostate with intermediate recurrence risk ( stage T2b-c or 11/13/2014 [place] 7 or PSA 10-20) Undiagnosed cardiac murmurs 01/05/2013 Diabetes mellitus due to underlying condition, control led, with chronic 02/26/2011 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 Essential hypertension, benign 02/26/2011 HLD (hyperlipidemia) 02/26/2011 Overview: ICD10 Diagnosis Term Teller Utility Backache 08/05/2006 Overview: Lower back pain - totally disabled ICD10 Diagnosis Term Teller Utility Hearing loss 08/05/2006 Overview: Both ears ICD10 Diagnosis Term Teller Utility documented as of this encounter (statuses as of 04/12/2020) Resolved Problems Problem Noted Date Resolved Date CKD (chronic kidney disease) stage 4, GFR 15-29 ml/min 06/0304/29/2018 Need for vaccination 03/30/2017 04/29/2018 Uncontrolled type 2 diabetes mellitus with stage 4 chronic 1 04/29/2018 kidney disease, with long-term current use of insulin Type 2 diabetes mellitus with diabetic chronic kidney 201403/17/2016 disease documented as of this encounter (statuses as of 04/12/2020) Immunizations Name Administration Dates Next Due Influenza [...] with No / Unsure 04/08/2020 6:17 PM [employer] someone who was confirmed or suspected to have 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 documented as of this encounter Last Filed Vital Signs Not on filedocumented in this encounter Patient Instructions Patient InstructionsLeidy Cherry FNP - 04/12/2020 12:18 PM CSTNew prescription sent for atorvastatin so he doesn't have to take 4 tablets to = 80 mg. I sent new prescription for atorvastatin 80 mg - 1 tab by mouth at bedtime. This dose was increased when he arrived to the hospital right before surgery. Please let us know ifhe as any muscle aches with this increased dose. Muscle aches are a side effect from higher dosing. If he experiences muscle aches please let me know. Please let me know if you need anything else. Leidy Cherry, WELLNESS SPECIALIST-C Cardiovascular Surgery Office: [phone] [employer] documented in this encounter Plan of Treatment Date Type Specialty Care Team Description 04/25/2020 Office Visit Thoracic Surgery Cornel Whitehead MD [address] [place] [address] [phone] 05/08/2020 Office Visit Cardiology William Church MD [address] [place] [address] [phone] 05/27/2020 Office Visit Gastroenterology Kendell Kingston MD [address] [place] [address] [phone] 05/28/2020 Office Visit Geriatric Medicine Loren Christie MD [address] [place] [address] [address] [place], [place] [address] [phone] Health Maintenance Due Date Last Done Comments [...] of this encounter Implants Implanted Type Area Crew Mess Attendant Device Shelf Model / Identifier Expiration Serial / Date Lot Lutonix .035 4mm X 40mm X 75cm 5fr Bard#[id number] - Sn/A Balloo n Left: Arm Bard 07/30/2020 [id number] / Implanted: Qty: 1 on 03/15/2018 by Compa Catherine MD at [facility] N/A / [id number] Angio-Seal Evolution Vascular Closure Device [employer] M edical #[id number] - S0 OCCLUSION Right: Terumo 09/20/2018 [id number] / Implanted: Qty: 1 on 08/09/2018 by Phi Perdue Jr., MD at [facility] DEVICE Groin 0 / [id number] Stent, [place] [id number] Viabahn Vasc 120cm Cath #[id number] - S [id number] STENT Left: Arm W L [place] 02/01/2021 [id number] / Implanted: Qty: 1 on 06/28/2018 by Compa Catherine MD at [facility] [id number] / NA documented as of this encounter Results Not on filedocumented in this encounter Visit Diagnoses Diagnosis S/P CABG x 2 (free MATA-LAD, 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;Dr Whitehead Postsurgical aortocoronary bypass status documented in this encounter Insurance Payer Benefit Plan Subscriber ID Effective Phone Address Typ e / Group Dates MEDICARE MEDICARE PART [id number] 2003-Pres [phone] Medicare A & B ent [id number] [place] [phone] [facility] MEDICAID OF [id number] 2016-Prese [phone] Med icaid [place] [phone] [place] [address] MEDICARE MEDICARE PART [id number] 2003-Pres [phone] Medicare A & B ent [id number] [place] [id number] [facility] [id number] 2016-Prese Medic aid HEALTHCARE COMM STAR PLUS nt PLAN - MANAGED MEDICAID documented as of this encounter Advance Directives Type Date Recorded Patient Strip Winder Explanati on Advance Directives and Living 01/25/2015 10:11 AM Will Power of Banking Services Advisor 01/25/2015 10:11 AM
--- OUTSIDE RECORDS SUMMARY | 2020-05-30 21:35 | XMS REPORT | Summary of Care ---
:1945 Author Organization [facility] Address [address] [place] [address] Care Team Providers Name Role Phone Pcp, Patient Does Not Have A Primary Care Provider +[id number] Edi Christie MD Unavailable Estephania Dsouza DO Unavailable LEONARDO James Unavailable Pcp-Lab Unavailable Unavailable DEISY Winn Unavailable Reason for Referral Other (Routine) Status Reason Specialty Diagnoses / Referred By Referred To Procedures Contact Contact New Request Gastroenterology Diagnoses Anemia, unspecified type Gastritis and duodenitis Cornel Whitehead MD Kline, Kevin Procedures Discharge Follow-up: Specialty Provider KENDELL HANDLEY; 2 Months (6-8 weeks ) [address] [place] [address] MD Kevin [address] [address] [place], [place] Phone: [phone] Phone: (Routine) Status Reason Specialty Diagnoses / Referred By Referred To Procedures Contact Contact New Request Cardiac Diagnoses S/P CABG x 2 Cornel Whitehead MD Rehabilitation Procedures CONSULT/REFERRAL CARDIAC REHAB [address] [place] [phone] Other (Routine) Status Reason Specialty Diagnoses / Referred By Referred To Procedures Contact Contact New Request Cardiology Diagnoses S/P CABG x 2 Cornel Whitehead MD [place], Afaq, MD Procedures Discharge Follow-up: Specialty Provider WILLIAM GUILLEN; 4-[address] [place] [address] [facility] 6th [place] [phone] Phone: Fax: Reason for Visit Reason Comments Anemia Auth/Cert Status Reason Specialty Diagnoses / Referred By Referred To Procedures Contact Contact Emergency Medicine [facility] [address] [place] [phone] Fax: Encounter Details Date Type Department Care Team Description 04/08/2020 - Hospital Encounter CT/ Vascular (Calvin Christian MD [address] [place] [address] [id number] [place] [address] Upper GI bleed 04/11/2020 9A) Cornel Whitehead MD [address] [place] [phone] [address] [place] [address] Allergies No Known Allergiesdocumented as of this encounter (statuses as of 04/11/2020) Medications Medication Sig Dispensed Refills Start Date End Date Status sevelamer 800 mg 2 tablets 3 0 02/07/2020 Active tablet (three) times daily with meals. clotrimazole 1 % Apply to 1 Tube 3 02/27/2020 Ac tive topical area(s) 2 creamIndications: (two) times Fungal dermatosis daily. docusate 100 mg Take 1 capsule 60 capsule 0 04/11/2020 02 Active capsuleIndication by mouth 2 0 s: S/P CABG x 2 (two) times daily for 30 days. atorvastatin 20 Take 4 tablets 90 tablet 1 04/11/2020 Active mg by mouth at tabletIndications bedtime. : S/P CABG x 2 metoprolol Take 1 tablet 60 tablet 2 04/11/2020 Acti ve tartrate 25 mg by mouth 2 tabletIndications (two) times : S/P CABG x 2 daily. aspirin 81 mg Take 1 tablet 90 tablet 1 04/11/2020 A ctive chewable by mouth tabletIndications daily. : S/P CABG x 2 amLODIPine 5 mg Take 1 tablet 90 tablet 1 04/11/2020 Active tabletIndications by mouth : Essential daily. hypertension, benign famotidine 20 mg Take 1 tablet 60 tablet 1 04/11/2020 Active tabletIndications by mouth 2 : Upper GI bleed (two) times daily. pantoprazole 40 Take 1 tablet 60 tablet 1 04/11/2020 Active mg EC by mouth 2 tabletIndications (two) times : Upper GI bleed daily. polyethylene Take 17 g by 0 04/11/2020 Act francisco glycol 17 mouth 2 (two) gram/dose times daily as powderIndications needed for : S/P CABG x 2 Constipation. sodium Take 1 tablet 0 04/11/2020 Activ e bicarbonate 650 by mouth 3 mg (three) times tabletIndications daily. : ESRD (end stage renal disease) furosemide 80 mg Take 1 tablet 0 04/11/2020 Active tabletIndications by mouth : ESRD (end stage daily. renal disease) clopidogreL 75 mg Take 1 tablet 0 12/16/2019 02 Discontinued tablet by mouth 0 daily. atorvastatin 20 Take 4 tablets 0 03/29/2020 04/11/20 2 Discontinued mg by mouth at 0 (Reorder ) tabletIndications bedtime. : S/P CABG x 2 aspirin 81 mg Take 1 tablet 0 03/30/2020 D iscontinued chewable by mouth 0 (Reorder) tabletIndications daily. : S/P CABG x 2 docusate 100 mg Take 1 capsule 0 03/29/2020 04/11/20 2 Discontinued capsuleIndication by mouth 2 0 ( Reorder) s: S/P CABG x 2 (two) times daily. metoprolol Take 1 tablet 0 03/29/2020 Disc ontinued tartrate 25 mg by mouth 2 0 (Reo rder) tabletIndications (two) times : S/P CABG x 2 daily. midodrine 5 mg Take 1 tablet 0 04/01/2020 Discontinued tabletIndications by mouth every 0 : S/P CABG x 2 Wednesday, Wednesday and Wednesday. sennosides 8.6 mg Take 1 tablet 0 03/29/2020 02 Discontinued tabletIndications by mouth 2 0 : S/P CABG x 2 (two) times daily. simethicone 80 mg Take 1 tablet 0 03/29/2020 02 Discontinued chewable by mouth after 0 tabletIndications meals and at : S/P CABG x 2 bedtime. 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 05/02/2019 Malfunction of arteriovenous dialysis fistula, initial encounter 03/31/2019 Overview: Added automatically from request for israel shelton [id number] Bilateral carotid artery stenosis 07/27/2018 Overview: Added automatically from request for israel shelton [id number] TIA (transient ischemic attack) 05/29/2018 Dialysis patient 04/18/2018 ESRD (end stage renal disease) 01/03/2018 Overview: Added automatically from request for israel shelton [id number] Diabetic polyneuropathy associated with type 2 diabete s mellitus 06/13/2015 Cancer of prostate with intermediate recurrence risk ( stage T2b-c or 11/13/2014 [place] 7 or PSA 10-20) Undiagnosed cardiac murmurs 01/05/2013 Diabetes mellitus due to underlying condition, control led, with chronic 02/26/2011 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 Essential hypertension, benign 02/26/2011 HLD (hyperlipidemia) 02/26/2011 Overview: ICD10 Diagnosis Term [place] [employer] Backache 08/05/2006 Overview: Lower back pain - totally disabled ICD10 Diagnosis Term [place] [employer] Hearing loss 08/05/2006 Overview: Both ears ICD10 Diagnosis Term [place] [employer] Utility documented as of this encounter (statuses [...] with No / Unsure 04/08/2020 6:17 PM DETAIL TECHNICIAN someone who was confirmed or suspected to have 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 documented as of this encounter Last Filed Vital Signs Vital Sign Reading Time Taken Comments Blood Pressure 133/64 04/11/2020 12:14 PM DETAIL TECHNICIAN Pulse 83 04/11/2020 12:14 PM DETAIL TECHNICIAN Temperature 36.7 C (98 F) 04/11/2020 12:14 PM DETAIL TECHNICIAN Respiratory Rate 18 04/11/2020 12:14 PM DETAIL TECHNICIAN Oxygen Saturation 99% 04/11/2020 12:14 PM DETAIL TECHNICIAN Inhaled Oxygen Concentration - - Weight 64.6 kg (142 lb 8 oz) 04/11/2020 4:42 AM DETAIL TECHNICIAN Height - - Body Mass Index 23 03/19/2020 11:38 PM CDT documented in this encounter Discharge Instructions AttachmentsThe following attachments cannot be sent through Care Everywhere. Polyethylene Glycol powder (Trinidadian)Famotidine tablets or gelcaps (Trinidadian) Pantoprazole tablets (Trinidadian)Upper GI Bleeding (Stable) (Trinidadian)documented in this encounter Progress Notes Hugh Ferrara PTA - 04/11/2020 10:39 AM CSTPhysical Therapy Progress Note: Discharge Recommendations: Therapy Needs and Potential: Patient would benefit from continued physical therapy services to address: decline in transfers decline in gait and/or balance decreased strength decreased endurance Patient demonstrates good potential to improve and meet therapy goals with further physical therapy services. Patient appears motivated to improve their functional mobility and return to their previous levelof function. Patient demonstrates ability to tolerate atleast 30-60 minutes of physical therapy with active participation. Challenges to Home Transition: increased risk of falls Equipment recommendations: rolling walker PAIN: denies pain PRECAUTIONS: Weight Bearing Precaution: NA General Precautions: PPE used:Gloves and Surgical mask, General, Fall, Sternal precautions oxygen: Nasal canula Bracing/Cast present or required:N/A S: Patient agreeable to working with PT. O: Patient met Semi reclined in bed. Patient seen for the following: Bed mobility: Supine to sit: SBA/Setup Scooting to edge of bed: SBA/Setup cued patient in logroll technique and sternal precautions Transfers: Sit to stand: Modified independent using [place] walker Stand to sit: Modified independent using Claire walker Gait: Assisted patient with ambulation as follows: 2 times 400 feet using [place] walker and SBA/Setup. cued patient in paced gait and patient needing one seated rest break Therapeutic exercise: patient educated in Deep breathing, Fall prevention, General strengthening and Safety awareness. After session, patient Up in chair and call byrnes provided. Daughter in law present A: Patient tolerated session well. Patient progressing toward goals well. P: PT will - progress strength, endurance, and mobility K MARÍA Ferrara Pager # [phone] Sup PT Brittany Gonzalez Total Timed Tx Codes in Minutes: 23 Min Total Treatment Time in Minutes: 23 Min [place] TECHNICIAN Davida Cordoba RN - 04/11/2020 10:25 AM CSTCare Coordinator Note: CC called and spoke to [address] [address] F:[phone] to make them aware that patient is being discharged today. CC was made aware by [facility] that patient will be seen 04/12/20 by them. CC made Adia([facility]) aware Thank You, Davida Cordoba RN (Tish), BSN Dba Manager, Care Management Dept. O: [phone] C: [phone] (Not for patients use.) E: [email or web address] [place] TECHNICIAN Leidy Cherry FNP - 04/10/2020 1:27 PM DETAIL TECHNICIAN- Patient was admitted for acute blood loss anemia secondary to upper GI bleeding. He was transfused 2 units of PRBCs on 04/08. EGD completed yesterday and showed 4 ulcers with no stigmata of bleeding. We are currently monitoring Hgb and plan for discharge tomorrow if Hgb remains stable. ZAINAB Stafford Cardiovascular Surgery Chaim price MD - 04/10/2020 12:56 PM CST Gastroenterology and Hepatology Progress Note Date of Service: 04/10/2020 12:57 Chief Complaint: hematemesis, anemia SUBJECTIVE/ MAJOR EVENTS: - patient has had no more episodes of hematemesis and melena ROS: Constitutional: No weakness HEENT: No dry mouth CV: No chest pain Resp: No shortness of breath GI: no abdominal pain PHYSICAL EXAM: Temp: [36.3 C (97.3 F)-36.7 C (98.1 F)] Pulse: [64-104] Resp: [18-20] BP: (95-199)/(50-99) MAP (mmHg): [68-130] Intake/Output Summary (Last 24 hours) at 04/10/2020 1257 Last data filed at 04/10/2020 0824 Gross per 24 hour Intake 255 ml Output 1250 ml Net -995 ml General: Patient is alert and oriented x4, No apparent distress. Cardiovascular: Regular rate and rhythm, no murmurs; no LE edema. Respiratory: Clear to auscultation bilaterally. Abdomen: Nondistended, no surgical scars, inverted umbilicus, soft, no tenderness, no masses, normalbowel sounds. LABS/IMAGING - REVIEWED EGD 04/09: - Normal upper third of esophagus and middle third of esophagus. - Z-line irregular, 39 cm from the incisors. - Non-bleeding esophageal ulcer. - LA Grade C esophagitis. - Non-bleeding gastric ulcer with no stigmata of bleeding. - Multiple non-bleeding duodenal ulcers with no stigmata of bleeding. - No specimens collected. CURRENT MEDICATIONS - REVIEWED ASSESSMENT/PLAN Reported hematemesis Melena Acute on Chronic Anemia CAD s/p CABG 03/25 GI is consulted for reported hematemesis around 04/01 and melena with acute anemia to 4.7 on admission. The patient is s/p CABG on 03/25 and currently on aspirin and plavix. EGD performed on 04/09 withnon bleeding esophageal ulcer, gastric ulcer and multiple duodenal ulcers all without stigmata of bleeding. His hemoglobin remains stable. - Protonix 40 mg BID - advance diet as tolerated - defer to primary team for resuming plavix, no absolute contraindication from GI perspective - Monitor Hgb, transfuse if there is active bleeding or Hb<7 - Notify GI fellow operations chief with any changes - patient will need re-look EGD in 8-12 weeks, will arrange GI follow-up beforehand to discuss Patient discussed with Dr. Tatum. GI will sign off. Chaim Tucker Gastroenterology Fellow, PGY-4 Division of Gastroenterology and Hepatology Davida Pimentel RN - 04/10/2020 12:05 PM CSTCare Coordinator Note: CC choice and sent referral to [address] [address] F: [phone] Thank You, Davida Cordoba (Tish) RN, BSN Dba Manager, Care Management Dept. O: [phone] C: [phone] (Not for patients use.) E: [email or web address] Jose Combs [id number] 1945 RE: Care Management Patient Choice Notification Your doctor has recommended that you have post-hospital care services at discharge. You can choose the provider you want, regardless of its relationship with [facility]. We will contact any of the agencieswithin the [facility] network, or any other agency upon your request. Based on where you live and agency service areas, a list was generated from: Medicare.gov Disclosure: [facility] owns or is affiliated with the following facilities/agencies: [facility] (jail and rehabilitation) If you are being referred to a home health agency or jail facility, you will also be given a [facility] Beneficiary Notification Letter ([id number]-Vqfl Profile Supplement) informing you about [facility]'s preferred partners. Patient Choice Acknowledgement I, Jose Combs / authorized architectural representative, am aware that I have choice in selecting post-hospitalcare providers. [facility] has given me a list of providers in the area available to me and/or my authorized architectural representative. My choice(s) are listed below: ? HH: [address] [address] F: [phone] Your signature on this form indicates that you have been given the following information: ? I have been advised of my right to choose the providers I wish ? If jail facilities, long-term acute care hospitals, personal care homes, or home healthagencies were recommended, I was given a list of facilities/agencies in my geographic area that deliver these services or ? I have pre-selected or am an established client with a facility/agency and choose to initiate/continue services _Pt's daughter n law Cheek verbalized choice_ 04/10/20 Patient/Guardian/Responsible Libertarian Signature Date [place] TECHNICIAN Leidy Cherry FNP - 04/10/2020 11:38 AM CST CARDIOVASCULAR SURGERY DAILY PROGRESS NOTE Name: Jose Combs Date: April 10, 2020 #: [id number] FACULTY: Cornel Whitehead MD SUBJECTIVE: "I feel so much better today." OBJECTIVE: PHYSICAL EXAM: BP (!) 168/99 (BP Location: Right arm, Patient Position: Sitting) | Pulse 96 | Temp 36.6 C (97.9F) (Skin) | Resp 20 | Wt 67.9 kg (149 lb 11.2 oz) | SpO2 100% | BMI 24.16 kg/m General: Patient is alert and oriented x 4 and in no acute distress. Respiratory: Respiratory effort: breathing comfortably Auscultations of lungs: clear to auscultation bilaterally Cardiovascular: Sternum is stable. The heart rate is normal with regular rhythm, and without murmurs, rubs, or gallops. Extremities (lower): edema - none Wound status: Incision site(s) - sternotomy clean, dry and intact. SVG leg wound clean, dry, and intact. LABORATORY Ref. Range 04/09/2020 08:23 04/10/2020 06:11 WBC x10^3 Latest Ref Range: 4.20 - 10.70 10*3/L 9.97 7.52 RBC x10^6 Latest Ref Range: 4.26 - 5.52 10*6/L 2.51 (L) 2.40 (L) HGB Latest Ref Range: 12.2 - 16.4 g/dL 7.7 (L) 7.3 (L) HCT Latest Ref Range: 38.4 - 49.3 % 23.9 (L) 22.9 (L) Ref. Range 04/09/2020 08:23 04/10/2020 06:11 PLT x10^3 Latest Ref Range: 150 - 328 10*3/L 246 240 Ref. Range 04/10/2020 06:11 NA Latest Ref Range: 135 - 145 mmol/L 134 (L) K Latest Ref Range: 3.5 - 5.0 mmol/L 4.8 CL Latest Ref Range: 98 - 108 mmol/L 105 CO2 TOTAL Latest Ref Range: 23 - 31 mmol/L 23 AGAP Latest Ref Range: 2 - 16 6 BUN Latest Ref Range: 7 - 23 mg/dL 82 (H) GLUCOSE Latest Ref Range: 70 - 110 mg/dL 146 (H) CREATININE Latest Ref Range: 0.60 - 1.25 mg/dL 8.04 (H) eGFR CALCULATION (non ) Latest Units: mL/min/1.73m2 6.5 eGFR CALCULATION () Latest Units: mL/min/1.73m2 7.9 CALCIUM Latest Ref Range: 8.6 - 10.6 mg/dL 7.7 (L) Current Facility-Administered Medications Medication Dose Route Frequency Last Rate Last Admin famotidine (PEPCID AC) tablet 20 mg 20 mg Oral BID 20 mg at 04/10/20 0824 hydralAZINE (APRESOLINE) injection 10 mg 10 mg Slow IV Push Q4HPRN pantoprazole (PROTONIX) EC tablet 40 mg 40 mg Oral BID 40 mg at 04/10/20 0824 aspirin chewable tablet 81 mg 81 mg Oral DAILY 81 mg at 04/10/20 0824 atorvastatin (LIPITOR) tablet 80 mg 80 mg Oral QHS 80 mg at 04/09/20 2100 ondansetron (ZOFRAN (PF)) injection 4 mg 4 mg Slow IV Push Q6HPRN sennosides (SENOKOT) tablet 8.6 mg 8.6 mg Oral BID 8.6 mg at 04/10/20 0824 sevelamer (RENVELA) tablet 1,600 mg 1,600 mg Oral TID MEALS 1,600 mg at 04/10/20 0824 simethicone (GAS RELIEF (SIMETHICONE)) chewable tablet 80 mg 80 mg Oral PC+HS 80 mg at 04/10/20 0824 ASSESSMENT/PLAN Jose Combs is a 75 year old male readmitted for GIB on 04/08. Patient is s/p CABG x 2 (freegraftLIMA to LAD, SVG to OM) 03/25/[address] Whitehead. He wad discharged to [facility] rehab on 03/29. Patient was on DAPT for more than 2 years prior to CABG. Plavix was added due to hx of TIA ~ 2 years ago. On arrival his Hgb was 4.7. Transfused 2 units of PRBC and his Hgb has been stable since, 4.7-->7.7-->7.3. He underwent EGD yesterday and they found 1 esophageal ulcer, 1 gastric ulcer and 2 duodenal ulcers. All with no stigmata of bleeding. - Although GI okay with resuming Plavix today we will hold off on restarting Plavix until outpatientfollow up. Risk outweigh benefit at this time since TIA was more than 2 years ago - Continue ASA 81 mg and atorvastatin - Continue Protonix 40 mg PO BID - Continue Pepcid 20 mg PO BID - Dialysis today per Nephrology Team. Confirmed with Dr. Arias - Repeat Hgb in AM in plans to discharge - Continue Renal I diet - Out of bed to chair and ambulate halls Disposition: - Home tomorrow since patient completed inpatient rehab - Need to ensure HH setup as planned at time of discharge from [facility] rehab - will discuss with Celia FORD RN, NP-C Cardiovascular Surgery [place] TECHNICIAN Associated attestation - Cornel Whitehead MD - 04/10/2020 12:40 PM CSTDoing well s/p EGD. Found multiple non bleeding ulcers (likely the culprit of acute blood loss anemia requiring multiple transfusions) possible stress response s/p CABG. Aggressive medical management of gi ulcers. Hemodynamically stable today. Will restart ASA and hold off plavix for now Advance diet OOB Ambulate as able. Dispo planning to home likely tomorrow MD Matt Corea Allison S, RN - 04/10/2020 10:09 AM CSTCare Management Social Functional Assessment Patient Name: Jose Combs Age: [age] year old Sex: male Patient's Previous Admission Date at [facility]: 2020 Patient was recently discharged to [facility] and was recently released from there. Family said he had a low Hbg and was very weak upon release from [facility]. Patient was set up with [facility] and no DME. Patient had labs done upon discharge from [facility] and family got call at home regarding low Hgb and to go to ER. [facility] and they are updated on patient's condition and arestill holding HD chair. Current diagnosis and co-morbidities: Upper GI bleed Readmission Questions: Was patient discharged from any acute care hospital within the last 30 days: Yes Were all questions regarding previous illness/diagnosis answered prior to discharge: Yes Did you have any difficulties with your discharge instructions: No Were you able to go to your follow-up discharge appointments: Yes Any difficulties after discharge with medications: No Any difficulties after discharge with transportation: No Any difficulties after discharge with physical conditions, support, or other limitations?: No Did patient refuse services that were recommended on the previous admission: No Was patient non-compliant with the previously recommended treatment: No If admitted from the ED did you call your primary MD or place a sick call/request with your provider?: No Social Functional Assessment: Primary language spoken/preferred: Trinidadian Mental Status: Alert & Oriented to Person,Place & Time Information given by: Other Name and phone number of person giving information: Adia Casillas (daughter in law) [phone] Patient's support system: Spouse;Other Name and number of support system: Adia Casillas (daughter in law) [phone], Matteo Casillas (son), Primary Cad Technician: Self MPOA: Yes;Same as support system Living Arrangement: Home Address of living arrangement : [address] [place] [address] [place] [address] Persons living in home: Same as support system;Other Baseline functional status- ambulation: Dependent(uses a wheelchair) Functional status-baseline personal care: Requires minimal to moderate assistance Baseline functional status- driving: Dependent Baseline functional status- grocery shopping: Requires minimal to moderate assistance Functional status-baseline housekeeping: Requires minimal to moderate assistance Functional status-baseline meal prep: Requires minimal to moderate assistance Do you have a PCP?: Yes Name of PCP: Dr. Christie Home Health Care Agency: Yes Name of Home Health Agency: [facility], [address] [place] [address] () [phone] (F) [phone] Previous or current Home Health Care Agency: Current Provider Services: No DME Company: No Equipment: None Hemodialysis: Yes Dialysis Facility: [address] [address] (P) [phone](F) [phone] Dialysis Schedule: MWF Dialysis Time: 0600 Mode of Transportation: Family Type of Access: AV Fistula Last Dialysis date at Dialysis Center: 03/15/20 Funding Resources: Medicare A & B Prescription coverage plan: Medicare Part D Pharmacy where meds are filled: [place] [address] () [phone] (F) [phone] Expected mode of discharge transportation: Same as support system Additional info required for discharge planning: Pending medical evaluation Recommended discharge plan: Update/Resume HH orders;New placement SFA Complete: Social Functional Assessment complete: Yes Role of Care Management explained. Any issues or concerns with obtaining/affording your medications at home: No Are you or your support system able to moss picker medications at discharge: Yes. Patient will have helpobtaining medications via their family and significant other. Honey Gutierrez RN (Allie)-BSN Dba Manager [facility] Care Management Office: [email or web address] Kendell Lentz MD - 04/09/2020 5:30 PM CSTBrief GI Procedure Note: EGD 04/09/2020 Esophagus: The upper third of the esophagus and middle third of the esophagus were normal. One linear esophageal ulcer with no bleeding and no stigmata of recent bleeding was found. LA Grade C (one or more mucosal breaks continuous between tops of 2 or more mucosal folds, less than75% circumference) esophagitis with no bleeding was found. Stomach: One non-bleeding superficial gastric ulcer with no stigmata of bleeding was found in the cardia. The lesion was 2 mm in largest dimension. No other significant abnormalities were identified in a careful examination of the stomach. Duodenum: Two non-bleeding cratered duodenal ulcers with no stigmata of bleeding were found in the duodenal bulb. The largest lesion was 20 mm in largest dimension. Recommendations: IV PPI BID Clear liquid diet Ok to start plavix tomorrow morning Monitor for any evidence of overt bleeding, notify GI fellow operations chief with questions or concerns. Kendell Handley MD PGY 5 Gastroenterology & Hepatology Contact information available via [facility] [place] TECHNICIAN Lesia Ackerman OT - 04/09/2020 10:24 AM CST04/09/2020 1024 OCCUPATIONAL THERAPY NOTE: Second attempt at evaluation, patient off unit to HD. Will follow up as schedule permits. MARISA Peralta, MOT Pager [phone] License # [id number] Brittany Rodriguez, PT - 04/09/2020 10:14 AM CSTPHYSICAL THERAPY NOTE: 2nd attempt. Epic reviewed. HgB 7.7 . Attempted to see pt, however patient not in the unit. Will attempt later as time permits. Thank you. Brittany Gonzalez, PT Pager # [phone] Leidy Carter FNP - 04/09/2020 9:[address] Surgery Update - Medical records from [facility] received and reviewed yesterday PM and scanned in [facility] - Clarification to H&P and today's daily progress note - GI team was consulted on 04/03/2020 while at [facility]. Pepcid was discontinued on 04/03 and changed to Protonix 40 mg IV BID. Carafate was also added, 1g QID on 04/03. Leidy Cherry, [employer] Cardiovascular Surgery Lesia Cintron OT - 04/09/2020 8:15 AM CST04/09/2020 8155 OCCUPATIONAL THERAPY NOTE: Consult received and [facility] reviewed. Attempted to see pt, however per [facility] HgB is 4.7, not indicated for therapy at this time. Will follow up when patient is medically able to participate. Thank you forthis consult. MARISA Peralta, [facility] Pager [phone] License # [id number] Brittany Rodriguez PT - 04/09/2020 8:07 AM CSTPHYSICAL THERAPY NOTE: Consult received and [facility] reviewed. Attempted to see pt, however per [facility] HgB is 4.7, not indicated for therapy at this time.. Will follow up when patient is medically able to participate. Thank you for this consult. Brittany Gonzalez, PT Pager # [phone] Devin Dunn MD - 04/09/2020 8:06 AM CST DAILY PROGRESS NOTE Date of Service: 04/09/2020 Days post surgery: 15 PCP: PATIENT DOES NOT HAVE A PCP HISTORY OF PRESENT ILLNESS: Jose Garret, 75 year old, male, PMH DM, ESRD on HD MWF, HLD, HTN presents with s/p CABGx2 03/25 who was discharged to cardiac rehab on 03/29. At rehab, he reportedly had multiple episodes of hematemesis, after dialysis on 04/01, Hgb dropped from 8.4 to 5.1. He received 2u pRBCs and was he stable for several days. On 04/04, his Hgb dropped again. He had intermittent episodes of hematemesis and melena.Today, on discharge from rehab, he was pale, Hgb was rechecked and found to be 4.5, he did not receive dialysis and was sent to [facility] ED. Recheck Hgb on arrival was 4.7, FOBT was positive. He was not kody PPI at the rehab center, continued to take Plavix and aspirin. SUBJECTIVE Complains of SOB. No emesis overnight. Received 2 units of pRBCs. Pending H/H PHYSICAL EXAM Vitals: BP 123/56 | Pulse 70 | Temp 36.6 C (97.9 F) (Skin) | Resp 16 | Wt 68 kg (149 lb 14.4oz) | SpO2 98% | BMI 24.19 kg/m Patient awake and alert. Hemodynamics: good Cardiac rhythm and rate: HDS Pulmonary Status: breathing comfortably Gastrointestinal: Abdomen- palpation: soft, non tender Wounds: incision healing Extremities (lower): edema - none. LABS HCT (%) Date Value 04/08/2020 15.9 (L) 03/28/2020 20.3 (L) 01/10/2014 40.1 07/20/2013 43.6 HGB Date Value 04/08/2020 4.7 g/dL (LL) 03/28/2020 6.9 g/dL (L) 01/10/2014 13.7 G/DL 07/20/2013 14.8 G/DL PROTIME PATIENT (Seconds) Date Value 04/08/2020 12.5 APTT Patient (Seconds) Date Value 04/08/2020 <20 (L) NA Date Value 04/09/2020 132 mmol/L (L) 01/10/2014 140 MMOL/L K Date Value 04/09/2020 5.8 mmol/L (H) 01/10/2014 4.1 MMOL/L CL Date Value 04/09/2020 103 mmol/L 01/10/2014 104 MMOL/L HCO3 (mEq/L) Date Value 03/26/2020 20 (L) BUN Date Value 04/09/2020 107 mg/dL (H) 01/10/2014 28 MG/DL (H) CREATININE Date Value 04/09/2020 8.64 mg/dL (H) 01/10/2014 1.73 MG/DL (H) No results found for: CK No results found for: CKMB CALCIUM Date Value 04/09/2020 7.5 mg/dL (L) 01/10/2014 9.6 MG/DL 01/10/2014 9.6 MG/DL MAGNESIUM Date Value 04/09/2020 2.0 mg/dL 07/19/2013 2.0 MG/DL RADIOLOGY Abdomen Xray 1 View Result Date: 03/25/2020 Impression: NG tube tip and sidehole are in the stomach. Chest 1 View (on Admission) Result Date: 03/25/2020 Impression: Post surgical changes. No acute infiltrate, pleural effusion, or pneumothorax. Chest 1 View Result Date: 2020 Mild pulmonary edema with cardiomegaly. Preliminary Report Dictated by Resident: Cristhian Arnett I, Irving Webber MD., have reviewed this study and agree with the above report. Xr Chest 2 Vw Result Date: 03/20/2020 No acute cardiopulmonary abnormality. Resolution of pulmonary edema with persistent mild cardiomegaly. Preliminary Report Dictated by Resident: Nat Arnett I, Kendall Diez MD., have reviewed this study and agree with the above report. MEDICATIONS Admission Medications Medications Prior to Admission Medication Sig Dispense Refill Last Dose aspirin 81 mg chewable tablet Take 1 tablet by mouth daily. atorvastatin 20 mg tablet Take 4 tablets by mouth at bedtime. docusate 100 mg capsule Take 1 capsule by mouth 2 (two) times daily. metoprolol tartrate 25 mg tablet Take 1 tablet by mouth 2 (two) times daily. midodrine 5 mg tablet Take 1 tablet by mouth every Wednesday, Wednesday and Wednesday. sennosides 8.6 mg tablet Take 1 tablet by mouth 2 (two) times daily. simethicone 80 mg chewable tablet Take 1 tablet by mouth after meals and at bedtime. clotrimazole 1 % topical cream Apply to area(s) 2 (two) times daily. 1 Tube 3 clopidogreL 75 mg tablet Take 1 tablet by mouth daily. sevelamer 800 mg tablet 2 tablets 3 (three) times daily with meals. Current Medications Current Facility-Administered Medications Medication Dose Route Frequency Last Rate Last Admin lidocaine 1% (PF) (XYLOCAINE) injection 0.3 mL 0.3 mL Infiltration ONCE aspirin chewable tablet 81 mg 81 mg Oral DAILY atorvastatin (LIPITOR) tablet 80 mg 80 mg Oral QHS 80 mg at 04/09/20 0003 lactated ringers IV infusion 1,000 mL 1,000 mL IV Infusion CONTINUOUS 125 mL/hr at 04/09/20 0400 1,000 mL at 04/09/20 0400 ondansetron (ZOFRAN (PF)) injection 4 mg 4 mg Slow IV Push Q6HPRN pantoprazole (PROTONIX) 80 mg in NaCl 0.9% (NS) 500 mL infusion 8 mg/hr IV Infusion CONTINUOUS 50 mL/hr at 04/08/20 2337 8 mg/hr at 04/08/20 2337 sennosides (SENOKOT) tablet 8.6 mg 8.6 mg Oral BID sevelamer (RENVELA) tablet 1,600 mg 1,600 mg Oral TID MEALS simethicone (GAS RELIEF (SIMETHICONE)) chewable tablet 80 mg 80 mg Oral PC+HS 80 mg at 04/09/20 0003 DIAGNOSIS/ PLAN: Jose Combs is a 75 year old male with PMH of DM, HTN, ESRD on HD MWF, HLD, now s/p CABG x2 03/25 who was discharged and sent to rehab on 03/29. At rehab, he had several episodes of hematemesis and melena. Hgb 4.7 on arrival, hemodynamically stable, will need to rule out ulcer as etiology of bleed. - EGD today - F/u H/H. - Place nephrology consult today - Continue to hold ASA and plavix - C/w protonix drip Devin Guzman MD CT Surgery Pager [phone] 04/09/2020 [place] TECHNIC[place] Associated attestation - Cornel Whitehead MD - 04/09/2020 8:07 PM CSTAfter discussion with the team, I examined this patient. I agree with the note as written. For endoscopy today Will need PPI and H2a Follow H/H MD Blu Corea, Chaim Otero MD - 04/08/2020 9:41 PM CST ACUTE CARE/TRAUMA SURGERY ON-CALL - CHIEF NOTE Calvin Combs is a 75 year old male s/p CABG x 2 on 03/25/2020. The patient was discharged to a rehab facility on 03/29/2020 and was noted to have multiple episodes of hematemesis on 04/01/2020 following HD (ESRD secondary to DM and HTN). Patient was noted to have Hgb of 5.1 and was transfused 2 units PRBC's. On 04/04/2020 that patient's Hgb was noted to drop again. He has had additional episodes of hematemesis and now melena. Recheck of Hgb on 04/08/2020 prior to HD (MWF) demonstrated a Hgb of 4.8 and the patient was sent to the ED. The patient has been on Plavix and ASA following surgery. He is not on a PPI. O - BP (!) 93/39 | Pulse 74 | Temp 36.7 C (98 F) (Skin) | Resp 16 | Wt 68 kg (150 lb) | SpO2 100% | BMI 24.21 kg/m NAD CTAB RRR, incision C/D/I Soft, NT/ND, +BS No edema Labs - Blood Cell count Recent Labs 04/08/208 WBC 13.24* HGB 4.7* MCV 101.3* PLT 296 Chemistry Recent Labs 04/08/20 1838 NA 133* K 5.6* CL 101 TCO2 19* CREAT 8.39* GLU 118* CA 7.6* Coagulation Profile Recent Labs 04/08/20 183 PTPAT 12.5 PTINR 1.1 APTTPAT <20* LFTs Recent Labs 04/08/20 1838 AST 24 ALT 8 ALKPHOS 42 BILIT 0.6 Imaging - Abdomen Xray 1 View Result Date: 03/25/2020 Impression: NG tube tip and sidehole are in the stomach. Chest 1 View (on Admission) Result Date: 03/25/2020 Impression: Post surgical changes. No acute infiltrate, pleural effusion, or pneumothorax. Chest 1 View Result Date: 2020 Mild pulmonary edema with cardiomegaly. Preliminary Report Dictated by Resident: Cristhian Arnett I, Irving Webber MD., have reviewed this study and agree with the above report. Xr Chest 2 Vw Result Date: 03/20/2020 No acute cardiopulmonary abnormality. Resolution of pulmonary edema with persistent mild cardiomegaly. Preliminary Report Dictated by Resident: Nat Arnett I, Kendall Diez MD., have reviewed this study and agree with the above report. Assessment: Jose Combs is a 75 year old male s/p CABG x 2 on 03/25/2020 presenting with severe anemia (Hgb 4.7). Patient has melena and hematemesis concerning for UGIB. Plan: - admit to CT surgery - transfuse 2 units PRBC's now then recheck H/H - consult GI for EGD - PPI drip - consult nephrology for HD - hold blood thinners Patient discussed with Dr. Whitehead. Chaim Hurt MD General Surgery Resident PGY-5 [place] TECHNICIAN documented in this encounter H&P Notes Kendell Handley MD - 04/09/2020 12:54 PM CST Endoscopy H & P Age: [age] year old Sex: male ASA Class: III Indication: Hematemesis, melena, blood loss anemia Past Medical History: Diagnosis Date CKD (chronic kidney disease), stage V Diabetes mellitus ESRD (end stage renal disease) dialysis on [facility] since 2017 - L AVF Essential hypertension Hypercholesterolemia Hypertension Prostate cancer October 2014 Prostate cancer s/p prostatectomy S/P CABG x 2 (free MATA-LAD, 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;Dr Whitehead 03/25/2020 TIA (transient ischemic attack) Urethral stricture Urinary incontinence, mixed Current Facility-Administered Medications Medication Dose Route Frequency Last Rate Last Admin heparin (PF) 1,000 unit/mL injection 1,500 Units 1,500 Units Slow IV Push DIALYSIS ONCE - PT ROOM Stopped at 04/09/20 1030 Followed by heparin (PF) 1,000 unit/mL injection 1,500 Units 1,500 Units Slow IV Push DIALYSIS ONCE - PT ROOM Stopped at 04/09/20 1030 heparin lock flush (HEP-LOCK) 100 unit/mL injection 600 Units 6 mL IV Push DIALYSIS ONCE - DIRK DSU Stopped at 04/09/20 1015 lidocaine 1% (PF) (XYLOCAINE) injection 0.3 mL 0.3 mL Infiltration ONCE Stopped at 04/09/20 1030 aspirin chewable tablet 81 mg 81 mg Oral DAILY 81 mg at 04/09/20 0936 atorvastatin (LIPITOR) tablet 80 mg 80 mg Oral QHS 80 mg at 04/09/20 0003 ondansetron (ZOFRAN (PF)) injection 4 mg 4 mg Slow IV Push Q6HPRN pantoprazole (PROTONIX) 80 mg in NaCl 0.9% (NS) 500 mL infusion 8 mg/hr IV Infusion CONTINUOUS 50 mL/hr at 04/08/20 2337 8 mg/hr at 04/08/20 2337 sennosides (SENOKOT) tablet 8.6 mg 8.6 mg Oral BID 8.6 mg at 04/09/20 0935 sevelamer (RENVELA) tablet 1,600 mg 1,600 mg Oral TID MEALS 1,600 mg at 04/09/20 0936 simethicone (GAS RELIEF (SIMETHICONE)) chewable tablet 80 mg 80 mg Oral PC+HS 80 mg at 04/09/20 0936 No Known Allergies Social History Socioeconomic History Marital status: Single [...] file Gets together: Not on file Attends restorationism service: Not on file Active member of [...] - no children 4th grade education 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 Last dose plavix 04/08. Will proceed with upper endoscopy for further evaluation HGB Date Value 04/09/2020 7.7 g/dL (L) 01/10/2014 13.7 G/DL Recent Labs 04/09/20 0823 PLT 246 INR 1.1 Kendell Handley MD PGY 5 Gastroenterology & Hepatology Contact information available via [facility] [place] TECHNICIAN Associated attestation - Nayan Sanches MD - 04/09/2020 4:52 PM CSTI have evaluated the patient and discussed the history, examination findings and procedure plan withDr Handley. I agree with the above pre-op note.Maday Mckoy MD - 04/08/2020 11:15 PM CSTPlease see consult note by ny, 04/08 10:20pm. Maday Mckoy MD PGY-2, Plastic Surgery Trauma Surgery Service documented in this encounter Consult Notes Benny Hong, OT - 04/10/2020 10:06 AM CSTAssociated Order(s): CONSULT ADULT OCCUPATIONAL THERAPY OT GENERAL EVALUATION Consult received via [employer], EMR reviewed and evaluation completed 04/10/20. Patient referred to occupational therapy for evaluation and treatment. Jose Combs is a 75 year old male presents to hospital with intermittent hematemesis, melena and blood loss anemia. Patient agreeable to participate in occupational therapy. Discharge Recommendations: Therapy Needs and Potential:- Patient would benefit from continued skilled occupational therapy services to address: Decline in basic activities of daily living, Decline in instrumental activities of daily living, Decreased strength and Decreased endurance - Patient demonstrates good potential to improve and meet therapy goals with further skilled occupational therapy services. - Patient appears motivated to improve their B/IADLs and return to their previous level of function. - Patient demonstrates ability to tolerate at least 30-60 minutes of active participation in occupational therapy. - Patient able to follow commands: 1-step Yes, Multi-step Yes, Inconsistencies No Challenges to Home Transition:- Requires physical assistance for BADLS - Requires physical assistance for IADLS - Increased risk of falls Equipment Recommendations:Shower chair and Grab bars. Hand held shower head. Long handle bath sponge. PLAN OF CARE: At least 2x/week Precautions: Weight bearing status: NA General: PPE Utilized: Gloves and N-95 Mask and Fall. Recent CABG 03/25: Sternal precautions. Bracing: N/A Current Occupational Performance and/or Treatment: Feeding: NT. Anticipate independent. Grooming: SBA/Setup. Standing by the sink. UB/LB Bathing: NT. Recommend use of shower chair, grab bar, hand held shower head. Seated during shower. Long handled bath scrub for lower legs. UB Dressing: Minimal assist. Hospital gown. LB Dressing: Moderate assist. Tub/Shower Transfer: NT Toilet Transfer: SBA/Setup. Grab bar for steadying. Toileting Hygiene: SBA/Setup. Adult diaper soiled with urine. Had an accident while changing adult diaper. Cleans self with stand by assistance. Functional Mobility: Patient found seated on bedside chair. Ambulates in room and to from bathroom with close supervision, no device. Patient/caregiver educated on: Adaptive equipment , ADL training, Fall prevention, Role of OT and Safety awareness Patient left semireclining in bed with call byrnes in reach. Visitor present. Please, see full evaluation below for more detail. OT EVALUATION: 75 year old male Admit date: 04/08/2020 Date of onset: 04/08/2020 Admit Diagnosis: Upper GI bleed OT Diagnosis: Impaired BADL independence, Impaired IADL independence, Decreased endurance and Impaired self-care mobility PMH: Past Medical History: Diagnosis Date CKD (chronic kidney disease), stage V Diabetes mellitus ESRD (end stage renal disease) dialysis on MWF since 2018 - L AVF Essential hypertension Hypercholesterolemia Hypertension Prostate cancer October 2014 Prostate cancer s/p prostatectomy S/P CABG x 2 (free MATA-LAD, 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;Dr Whtiehead 03/25/2020 TIA (transient ischemic attack) Urethral stricture Urinary incontinence, mixed PSH: Past Surgical History: Procedure Laterality Date ANGIOPLASTY Left 03/15/2018 Surgeon: Compa Beltran; [facility] ANGIOPLASTY Left 06/28/2018 Surgeon: Compa Beltran; [facility] ANGIOPLASTY Left 12/12/2019 Surgeon: Carlos Wilkins MD; [facility] ARTERIOVENOUS FISTULA CREATION Left 01/14/2018 Surgeon: Compa Beltran; [facility] ARTERIOVENOUS FISTULA CREATION Left 2018 Left arm BACK SURGERY 2004 BLADDER NECK INCISION N/A 03/26/2015 Surgeon: Robert To; [facility] BLADDER NECK INCISION N/A 06/19/2015 Surgeon: Robert To; [facility] CAROTID ANGIOGRAPHY Bilateral 08/09/2018 Surgeon: Phi Perdue Jr., MD; Location[facility] CORONARY ARTERY BYPASS GRAFT N/A 03/25/2020 Surgeon: Cornel Whitehead MD; Location: [facility] CYSTOSCOPY N/A 03/25/2020 Surgeon: Keegan Valverde MD; [facility] ENDOSCOPIC VEIN HARVEST (SHX) Left 03/25/2020 Surgeon: Cornel Whitehead MD; Location: [facility] ENDOVASCULAR UPPER EXTREMITY ANGIOPLASTY Left 04/04/2019 Surgeon: Ezequiel Cazares MD; Location: [facility] ESOPHAGOGASTRODUODENOSCOPY N/A 04/09/2020 Surgeon: Nayan Sanches MD; Location: [facility] EXTRACAPSULAR CATARACT EXTRACTION WITH INTRAOCULAR LENS IMPLANT Bilateral 2011 Both eyes FISTULOGRAM Left 03/15/2018 Surgeon: Compa Beltran; Location: [facility] FISTULOGRAM Left 06/28/2018 Surgeon: Compa Beltran; [facility]: [facility] FISTULOGRAM Left 10/04/2018 Surgeon: Shiv Hough MD; Location: [facility] INTRAOPERATIVE FISTULOGRAM Left 04/04/2019 Surgeon: Ezequiel Cazares MD; Location: [facility] PROSTATECTOMY RADICAL RETROPUBIC PROSTATECTOMY N/A 01/08/2015 Surgeon: Robert To; Location: [facility] SPINE SURGERY 2001 Lumbar spine surgery TRANSURETHRAL INCISION OF BLADDER NECK 03/26/2015 VASCULAR STENTING Left 06/28/2018 Surgeon: Compa Beltran; Location: [facility] PAIN: Before assessment: 0/10 After assessment: 0/10 Location: NA Pain Management: NA OCCUPATIONAL ROLES/HOME ENVIRONMENT: Home environment: Single story home and Lives Family. Bathroom access: Yes Bathroom setup: Shower Occupation(s): Retired Function prior to admission: Household ambulation, Community ambulation, Independent with BADLs and Independent with IADLs Equipment prior to admission: None PERFORMANCE SKILLS/FACTORS: UE Muscle Tone: bilateral WNL UE ROM: bilateral AROM WFL and shoulder up to about 90 deg per sternal precaution. UE Strength: BLAKE UE 4-/5 Hand dominance: right Dexterity/Coordination: bilateral Intact Endurance - Sitting: Excellent Standing: Good Sitting Balance - Static: Good Dynamic: Good Standing: Balance - Static Good Dynamic: Good Dizziness: No Skin Integrity: No breakdown noted Sensation: bilateral Intact to light touch Oral Motor: WFL Communication: Able to verbalize needs Yes Other: Speaks and comprehends yakut. Vision: WFL Yes Other: N/A Hearing: good; no issues reported COGNITION: Orientation: person, date/time and situation Follows Commands: 1-step Yes Multi-step Yes Inconsistencies No Safety Awareness/Judgment: Good PROBLEM LIST: Decreased independence with ADL and Decreased strength/endurance for functional activity REHAB POTENTIAL/PROGNOSIS: good PATIENT/FAMILY GOALS: return home TREATMENT/INTERVENTION PLAN: Functional motor treatment, Patient/Caregivier Education, Equipment recommendations, Daily living activities and Therapeutic exercises GOAL(S): By discharge, patient will increase independence in daily living skills as follows: 1 Patient will perform toilet transfer with modified independence. 2 Patient will perform UB dressing with modified independence. 3 Patient will perform LB dressing with modified independence. 4 Patient will complete grooming tasks with modified independence while standing at the sink. 5 Patient will complete toileting hygiene, including clothing management, with modified independence. 6 Patient will increase endurance for functional activity as evidenced by ability to sustain 15 minutes of active participation. 7 Patient/caregiver will verbalize/demonstrate understanding/proficiency in the following home programs: Adaptive equipment , ADL training, Compensatory techniques/adaptive strategies and Sternal precautions PATIENT-FAMILY TEACHING Patient and Family member provided with preferred teaching of verbal information on Adaptive equipment , ADL training, Fall prevention, Role of OT and Safety awareness. Shows readiness to learn. Verbalinstruction teaching provided. Individual verbalizes understanding of teaching provided. MARISA Banks Total Timed Treatment Codes: 24 Min Total Treatment Time: 35 Min Patient Complexity Level Moderate - An [...] to enable patient to complete evaluation component. Brittany Rodriguez PT - 04/10/2020 9:00 AM DETAIL TECHNICIAN Associated Order(s): CONSULT ADULT PHYSICAL THERAPY Patient agreeable to working with physical therapy. Patient met Up in chair. PHYSICAL THERAPY EVALUATION Consult received, chart reviewed and evaluation complete this date. Patient is referred to PT for evaluation and treatment. Patient is a 75 year old male who presents to hospital for Upper GI bleed andS/P Esophagogastroduodenoscopy due to stomach and duodenum ulcers. Discharge Recommendations: Therapy Needs and Potential: Patient would benefit from continued physical therapy services to address: decline in transfers decline in gait and/or balance decreased strength decreased endurance Patient demonstrates good potential to improve and meet therapy goals with further physical therapy services. Patient appears motivated to improve their functional mobility and return to their previous levelof function. Patient demonstrates ability to tolerate atleast 30-60 minutes of physical therapy with active participation. Challenges to Home Transition: increased risk of falls Equipment recommendations: rolling walker Current Functional Status and/or Treatment:Functional mobility training, Transfer training, Gait training, Patient/Family/Caregiver education, Therapeutic exercise and Neuromuscular Re-Education Bed Mobility: Supine-sit: SBA/Setup Sit to supine: SBA/Setup. Transfers: Sit to stand: Minimal assist using Rolling Walker, Ambulation: Assisted patient with ambulation as follows: 80 feet using Claire walker and Minimal assist Patient presenting with Step-through gait pattern. . 3LNC Therapeutic exercise: patient educated in Deep breathing, Fall prevention, General strengthening, Positioning, Relaxation/breathing techniques, Safety awareness and Sternal precautions., instructed patient in the following: ankle pumps, long arc quads, seated marching, heel raises, patient/caregiver instructed to perform HEP 1-2 times per day, 10-20 repetitions., patient/caregiver demonstrates understanding of instructions. After session, patient Up in chair. Call button provided. Nurse notified. PLAN OF CARE: At least 2 times per week, once or twice a day (while in hospital) per patient's tolerance and medical needs. See below for complete details. Admit Date: 04/08/2020 Hospital Diagnosis:Upper GI bleed PT Diagnosis: Difficulty walking, Weakness and Dyspnea Weight Bearing Precaution: NA General Precautions: PPE used:Gloves and Surgical mask, General, Fall,oxygen: Nasal canula, 3LNC Bracing/Cast present or required:N/A PMH: Past Medical History: Diagnosis Date CKD (chronic kidney disease), stage V Diabetes mellitus ESRD (end stage renal disease) dialysis on MWF since 2017 - L AVF Essential hypertension Hypercholesterolemia Hypertension Prostate cancer October 2014 Prostate cancer s/p prostatectomy S/P CABG x 2 (free MATA-LAD, 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;Dr Whitehead 03/25/2020 TIA (transient ischemic attack) Urethral stricture Urinary incontinence, mixed PSH: Past Surgical History: Procedure Laterality Date ANGIOPLASTY Left 03/15/2018 Surgeon: Compa Beltran; [facility] ANGIOPLASTY Left 06/28/2018 Surgeon: Compa Beltran; [facility] ANGIOPLASTY Left 12/12/2019 Surgeon: Carlos Wilkins MD; Location[facility] ARTERIOVENOUS FISTULA CREATION Left 01/14/2018 Surgeon: Compa Beltran; [facility] ARTERIOVENOUS FISTULA CREATION Left 2018 Left arm BACK SURGERY 2005 BLADDER NECK INCISION N/A 03/26/2015 Surgeon: Robert To; [facility]: [facility] BLADDER NECK INCISION N/A 06/19/2015 Surgeon: Robert To; [facility]: [facility] CAROTID ANGIOGRAPHY Bilateral 08/09/2018 Surgeon: Phi Perdue Jr., MD; Location: [facility] CORONARY ARTERY BYPASS GRAFT N/A 03/25/2020 Surgeon: Cornel Whitehead MD; Location: [facility] CYSTOSCOPY N/A 03/25/2020 Surgeon: Keegan Valverde MD; [facility] ENDOSCOPIC VEIN HARVEST (SHX) Left 03/25/2020 Surgeon: Cornel Whitehead MD; Location: [facility] ENDOVASCULAR UPPER EXTREMITY ANGIOPLASTY Left 04/04/2019 Surgeon: Ezequiel Cazares MD; Location: [facility] ESOPHAGOGASTRODUODENOSCOPY N/A 04/09/2020 Surgeon: Nayan Sanches MD; [facility] Location EXTRACAPSULAR CATARACT EXTRACTION WITH INTRAOCULAR LENS IMPLANT Bilateral 2011 Both eyes FISTULOGRAM Left 03/15/2018 Surgeon: Compa Beltran; [facility]: [facility] FISTULOGRAM Left 06/28/2018 Surgeon: Compa Beltran; [facility] FISTULOGRAM Left 10/04/2018 Surgeon: Shiv Hough MD; Location: [facility] INTRAOPERATIVE FISTULOGRAM Left 04/04/2019 Surgeon: Ezequiel Cazares MD; [facility]: [facility] PROSTATECTOMY RADICAL RETROPUBIC PROSTATECTOMY N/A 01/08/2015 Surgeon: Robert To; Location: [facility] SPINE SURGERY 2001 Lumbar spine surgery TRANSURETHRAL INCISION OF BLADDER NECK 03/26/2015 VASCULAR STENTING Left 06/28/2018 Surgeon: Compa Beltran; Location: [facility] Prior Living Situation: lives with their family and house, DME: No device Prior level of Mobility: house hold ambulation Subjective: Patient states he feels better today Patient/Family Goals: To go home Patient/Family verbalizes understanding of condition: Yes PAIN: denies pain COMMUNICATION Primary Language: Trinidadian Able to Verbalize needs: Yes Vision:good; no issues reported Hearing:good; no issues reported ORIENTATION/COGNITION: Oriented to: person, place and situation Awake: Yes Alert: Yes Dizzy: No Follows Commands: Yes 1-Step Yes Multi-Step Yes Inconsistent: No NEUROLOGICAL Light Touch: within functional limits bilateral LE, Heel to arana: WFL Tone: intact BALANCE: Sitting: Static: Good Dynamic: Good Standing: Static: Fair+ Dynamic: Fair RANGE OF MOTION: within functional limits bilateral LE STRENGTH: 4/5 (Good), bilateral LE ENDURANCE: Fair, Nasal canula, 3LNC SKIN INTEGRITY: intact PROBLEM LIST: Decline in gait, Decline in transfers, Decreased strength, Decreased endurance and Decreased balance ASSESSMENT: Patient is a 75 year old male seen secondary to the above listed diagnosis. Patient would benefit from continued PT to address the above listed deficits to maximize independence and safety with functional mobility. Rehabilitation Potential: good Goals: The following goals are to maximize independence and safety with functional mobility to eventually return to prior living situation and prior functional status. 1. Sit to stand: Modified independent using Rolling Walker 2. Modified independent with ambulation, Feet: 300 using least assistive device. 3. Demonstrate or verbalize understanding of home exercise program in order to continue with their rehab on their own. Treatment Plan: Gait training, Therapeutic exercise, Transfer training, Balance training, Equipment needs assessment, Safety education, patient/caregiver education and Neuromuscular Re-Education PATIENT EDUCATION: Patient provided with preferred teaching of verbal information on role of PT, plan of care, HEP. Shows readiness to learn. Verbal instruction teaching provided. Total Time Tx Codes in Minutes: 32 min Total Treatment Time in Minutes: 37 min Brittany Gonzalez, PT Rehab Services Pager no: [phone] A physical therapy evaluation of high complexity was completed based on meeting at the criteria below: A history of present problem with at least 3 or more personal factors (includes environmental factors) and/or comorbidities that impact the plan of care An examination of body systems using standardized tests and measures addressing a total of at least 4 or more elements from any of the following: body structures and functions, activity limitations,and/or participation limitations A clinical presentation with unstable and unpredictable characteristics Rolling Walker or Rollator: I certify that Jose Combs is under my care and that I had a [id number] encounter with this patient on: 04/10/20 . The primary reason for the durable medical equipment: Difficulty in walking. I am ordering and certify that, based [...] Weight: Wt Readings from Last 1 Encounters: 04/10/20 153 lb (69.4 kg) Duration of need: 99 months. Maday Anderson MD - 04/08/2020 10:20 PM CSTAssociated Order(s): CONSULT CARDIOVASCULAR SURGERY Admission History & Physical Note Date of Service: 04/08/2020 HISTORY OF PRESENT ILLNESS: Jose Combs, 75 year old, male, PMH DM, ESRD on HD MWF, HLD, HTN presents with s/p CABGx2 03/25 who was discharged to cardiac rehab on 03/29. At rehab, he reportedly had multiple episodes of hematemesis, after dialysis on 04/01, Hgb dropped from 8.4 to 5.1. He received 2u pRBCs and was he stable for several days. On 04/04, his Hgb dropped again. He had intermittent episodes of hematemesis and melena.Today, on discharge from rehab, he was pale, Hgb was rechecked and found to be 4.5, he did not receive dialysis and was sent to [facility] ED. Recheck Hgb on arrival was 4.7, FOBT was positive. He was not koyd PPI at the rehab center, continued to take Plavix and aspirin. Medications: No current facility-administered medications on file prior to encounter. Current Outpatient Medications on File Prior to Encounter Medication Sig Dispense Refill aspirin 81 mg chewable tablet Take 1 tablet by mouth daily. atorvastatin 20 mg tablet Take 4 tablets by mouth at bedtime. docusate 100 mg capsule Take 1 capsule by mouth 2 (two) times daily. metoprolol tartrate 25 mg tablet Take 1 tablet by mouth 2 (two) times daily. midodrine 5 mg tablet Take 1 tablet by mouth every Wednesday, Wednesday and Wednesday. sennosides 8.6 mg tablet Take 1 tablet by mouth 2 (two) times daily. simethicone 80 mg chewable tablet Take 1 tablet by mouth after meals and at bedtime. clotrimazole 1 % topical cream Apply to area(s) 2 (two) times daily. 1 Tube 3 clopidogreL 75 mg tablet Take 1 tablet by mouth daily. sevelamer 800 mg tablet 2 tablets 3 (three) times daily with meals. Allergies: No Known Allergies Review of Systems: General: Patient reports weakness. HEENT: Patient denies headache and vision changes. Cardiac: Patient reports hypotension. Pulmonary: Patient denies shortness of breath and cough. GI: Patient denies abdominal pain, nausea and vomiting. Skin: Patient denies rashes and lesions. Genital/Urinary: Patient denies dysuria and hematuria. Vascular: Patient denies leg edema. Neurologic: Patient denies syncope. Endocrine: +DM Hematologic: Patient reports anemia. Musculoskeletal: Patient denies muscle pain and joint pain. Psychiatric: Patient denies anxiety and depression. PAST MEDICAL HISTORY: Past Medical History: Diagnosis Date CKD (chronic kidney disease), stage V Diabetes mellitus ESRD (end stage renal disease) dialysis on MWF since 2018 - L AVF Essential hypertension Hypercholesterolemia Hypertension Prostate cancer October 2014 Prostate cancer s/p prostatectomy S/P CABG x 2 (free MATA-LAD, 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;Dr Whitehead 03/25/2020 TIA (transient [...] Left 01/14/2018 Surgeon: Compa Beltran; [facility] ARTERIOVENOUS FISTULA CREATION Left 2018 Left arm BACK SURGERY 2005 BLADDER NECK INCISION N/A 03/26/2015 Surgeon: Robert To; Location: [facility] BLADDER NECK INCISION N/A 06/19/2015 Surgeon: Robert To; [facility] CAROTID ANGIOGRAPHY Bilateral 08/09/2018 Surgeon: Phi Perdue Jr., MD; [facility]: [facility] CORONARY ARTERY BYPASS GRAFT N/A 03/25/2020 Surgeon: Cornel Whitehead MD; Location: [facility] CYSTOSCOPY N/A 03/25/2020 Surgeon: Keegan Valverde MD; [facility] ENDOSCOPIC VEIN HARVEST (SHX) Left 03/25/2020 Surgeon: Cornel Whitehead MD; Location: [facility] ENDOVASCULAR UPPER EXTREMITY ANGIOPLASTY Left 04/04/2019 Surgeon: Ezequiel Cazares MD; [facility] EXTRACAPSULAR CATARACT EXTRACTION WITH INTRAOCULAR LENS IMPLANT Bilateral 2011 Both eyes FISTULOGRAM Left 03/15/2018 Surgeon: Compa Beltran; [facility]: [facility] FISTULOGRAM Left 06/28/2018 Surgeon: Compa Beltran; [facility] FISTULOGRAM Left 10/04/2018 Surgeon: Shiv Hough MD; [facility]: [facility] INTRAOPERATIVE FISTULOGRAM Left 04/04/2019 Surgeon: Ezequiel Cazares MD; [facility]: [facility] PROSTATECTOMY RADICAL RETROPUBIC PROSTATECTOMY N/A 01/08/2015 Surgeon: Robert To; [facility]: [facility] SPINE SURGERY 2001 Lumbar spine surgery TRANSURETHRAL INCISION OF BLADDER NECK 03/26/2015 VASCULAR STENTING Left 06/28/2018 Surgeon: Compa Beltran; Location: [facility] Social History Socioeconomic History Marital status: Single [...] file Gets together: Not on file Attends restorationism service: Not on file Active member of [...] - no children 4th grade education 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 Eyes: conjunctivae and sclerae normal Mouth/Throat-moist mucus membranes with clear oropharynx. Neck Jugular veins: negative Respiratory: Respiratory effort: breathing comfortably Auscultations of lungs:clear to auscultation Cardiovascular: Palpitation of heart: Normal/Nondisplaced PMI. No thrills or heaves. Chest - auscultation heart: The heart rate is normal with regular rhythm, and without murmurs,rubs, or gallops. Carotid Arteries (Bruits): normal - no bruits Abdominal Aorta: not examined Pedal Pulses: Palpable bilaterally and normal Extremities (lower): edema - trace. Veins - not examined. GI: Abdomen- palpation: soft, non tender Liver & Spleen: normal, non palpable Skin Inspection - phlebitis, pustules: negative Neurologic: Orientation: awake and alert Mood and Affect: appropriate Muscular: Spine ROM normal. Muscular strength intact. Medical Decision Making: LABS: CBC BMP PT/INR WBC x10^3 (/uL) Date Value 01/10/2014 7.2 WBC (10*3/L) Date Value 04/08/2020 13.24 (H) NA Date Value 04/08/2020 133 mmol/L (L) 01/10/2014 140 MMOL/L No results found for: PT RBC x10^6 (/uL) Date Value 01/10/2014 4.78 RBC (10*6/L) Date Value 04/08/2020 1.57 (L) K Date Value 04/08/2020 5.6 mmol/L (H) 01/10/2014 4.1 MMOL/L INR (no units) Date Value 04/08/2020 1.1 PLT x10^3 (/uL) Date Value 01/10/2014 220 PLT (10*3/L) Date Value 04/08/2020 296 CALCIUM Date Value 04/08/2020 7.6 mg/dL (L) 01/10/2014 9.6 MG/DL 01/10/2014 9.6 MG/DL HGB Date Value 04/08/2020 4.7 g/dL (LL) 01/10/2014 13.7 G/DL CL Date Value 04/08/2020 101 mmol/L 01/10/2014 104 MMOL/L aPTT HCT (%) Date Value 04/08/2020 15.9 (L) 01/10/2014 40.1 BUN Date Value 04/08/2020 103 mg/dL (H) 01/10/2014 28 MG/DL (H) APTT Patient (Seconds) Date Value 04/08/2020 <20 (L) CREATININE Date Value 04/08/2020 8.39 mg/dL (H) 01/10/2014 1.73 MG/DL (H) GLUCOSE Date Value 04/08/2020 118 mg/dL (H) 01/10/2014 186 MG/DL (H) CO2 TOTAL Date Value 04/08/2020 19 mmol/L (L) 01/10/2014 25 MMOL/L Labs: Hgb 4.7, ED ordered 2 u pRBCs. DIAGNOSIS: Jose Combs is a 75 year old male with PMH of DM, HTN, ESRD on HD MWF, HLD, now s/p CABG x2 03/25 who was discharged and sent to rehab on 03/29. At rehab, he had several episodes of hematemesis and melena. Hgb 4.7 on arrival, hemodynamically stable, will need to rule out ulcer as etiology of bleed. MANAGEMENT OPTIONS / PLAN: - Admit to 9a - Recheck H/H 1 hour after transfusion - GI consult for EGD tomorrow - GI recommended Iron panel, protonix drip - Will plan for EGD tomorrow - Nephrology consult for dialysis tomorrow am - Holding plavix, continue aspirin Dr. Whitehead, Faculty, was notified of admission on 04/08/2020 at 7 pm. Maday Mckoy MD PGY-2, Plastic Surgery Trauma Surgery Service [place] TECHNICIAN Associated attestation - Cornel Whitehead MD - 04/09/2020 5:15 PM CSTRecent UGIB with 6u transfusion past 1.5 weeks. Will need upper endoscopy on this admission Cornel Whitehead MD documented in this encounter ED Notes Juanita Cabrera RN - 04/08/2020 6:14 PM CSTArtgrecia Combs is a 75 year old male sent [facility] for anemia. Patient s/p CABG on 03/25. Patient c/o sob with exertion. Skin pale,warm,dry. No distress noted documented in this encounter Miscellaneous Notes Care Plan - Raven Ortiz RN - 04/11/2020 3:23 AM DETAIL TECHNICIAN Problem: Pain Goal: Control of pain at or below patient's documented comfort goal Outcome: Progressing as expected Goal: Reduction in pain sensation Outcome: Progressing as expected Problem: Discharge Planning Goal: Absence of venous thromboembolism Outcome: Progressing as expected Goal: Adequate for discharge Outcome: Progressing as expected Goal: Effective communication Outcome: Progressing as expected Problem: Falls, Risk of Goal: Absence of falls Outcome: Progressing as expected Problem: Bleeding, Risk of Goal: Absence of impaired coagulation signs and symptoms Outcome: Progressing as expected Goal: Absence of active bleeding Outcome: Progressing as expected Problem: Procedure Routine Goal: Knowledge of procedure Outcome: Progressing as expected are Plan - Kiki Grijalva RN - 04/10/2020 6:53 PM CSTHemodialysis Plan of care explained through out tx r/t treatment time, UF goal with explainations. Al so explained possible side effects of HD tx, such as s/s of hypotension, cramping, n/v, CP or any other concerns. ursing Note - Kiki Grijalva RN - 04/10/2020 6:28 PM CSTHEMODIALYSIS NURSING NOTE Number Hours: 4.0 hours Bath: 2K 3 Calcium (standard dialysate) Heparin: zero Access: left AVG forearm Net UF: 2000 Weight: pre 69.4 kg, post 67.4 kg Post BP 156/41 Post Pulse 89 Antibiotics/Medications Given: see emar Complications/Events of Treatment: none Handoff report completed and attached to Patient Chart Mode of Transport Back to Unit: wheelchair See hemodialysis flowsheet for details of treatment. are Plan - Raven Ortiz RN - 04/10/2020 6:57 AM DETAIL TECHNICIAN Problem: Pain Goal: Control of pain at or below patient's documented comfort goal 04/10/2020 0657 by Raven Ortiz RN Outcome: Progressing as expected 04/10/2020 0656 by Raven Ortiz RN Outcome: Progressing as expected Goal: Reduction in pain sensation 04/10/2020 0657 by Raven Ortiz RN Outcome: Progressing as expected 04/10/2020 0656 by Raven Ortiz RN Outcome: Progressing as expected Problem: Discharge Planning Goal: Absence of venous thromboembolism 04/10/2020 0657 by Raven Ortiz RN Outcome: Progressing as expected 04/10/2020 0656 by Raven Ortiz RN Outcome: Progressing as expected Goal: Adequate for discharge 04/10/2020 0657 by Raven Ortiz RN Outcome: Progressing as expected 04/10/2020 0656 by Raven Ortiz RN Outcome: Progressing as expected Goal: Effective communication 04/10/2020 0657 by Raven Ortiz RN Outcome: Progressing as expected 04/10/2020 0656 by Raven Ortiz RN Outcome: Progressing as expected Problem: Falls, Risk of Goal: Absence of falls 04/10/2020 0657 by Raven Ortiz RN Outcome: Progressing as expected 04/10/2020 0656 by Raven Ortiz RN Outcome: Progressing as expected Problem: Bleeding, Risk of Goal: Absence of impaired coagulation signs and symptoms 04/10/2020 0657 by Raven Ortiz RN Outcome: Progressing as expected 04/10/2020 0656 by Raven Ortiz RN Outcome: Progressing as expected Goal: Absence of active bleeding 04/10/2020 0657 by Raven Ortiz RN Outcome: Progressing as expected 04/10/2020 0656 by Raven Ortiz RN Outcome: Progressing as expected Problem: Procedure Routine Goal: Knowledge of procedure 04/10/2020 0657 by Raven Ortiz RN Outcome: Progressing as expected 04/10/2020 0656 by Raven Ortiz RN Outcome: Progressing as expected are Plan - Raven Ortiz RN - 04/10/2020 6:56 AM DETAIL TECHNICIAN Problem: Pain Goal: Control of pain at or below patient's documented comfort goal Outcome: Progressing as expected Goal: Reduction in pain sensation Outcome: Progressing as expected Problem: Discharge Planning Goal: Absence of venous thromboembolism Outcome: Progressing as expected Goal: Adequate for discharge Outcome: Progressing as expected Goal: Effective communication Outcome: Progressing as expected Problem: Falls, Risk of Goal: Absence of falls Outcome: Progressing as expected Problem: Bleeding, Risk of Goal: Absence of impaired coagulation signs and symptoms Outcome: Progressing as expected Goal: Absence of active bleeding Outcome: Progressing as expected Problem: Procedure Routine Goal: Knowledge of procedure Outcome: Progressing as expected [place] TECHNICIAN Nursing Note - Judith Trevizo RN - 04/09/2020 12:28 PM CSTHEMODIALYSIS NURSING NOTE Number Hours: 2.0 hours Bath: 2K 3 Calcium (standard dialysate) Heparin: zero Access: left AVF forearm Net UF:1000ml Weight: pre 68.5kg, post 67.5 kg Post BP 199/67 Post Pulse 89 Antibiotics/Medications Given: none Complications/Events of Treatment: BP is elevated the entire treatment, Dr. Arias and primary nurse notified. Pt denies any headache or dizziness, and treatment is well tolerated. Handoff report completed and attached to Patient Chart. Verbal report also given to T[place] primary nurse Mode of Transport Back to Unit: wheelchair and accompanied by transporter See hemodialysis flowsheet for details of treatment. are Plan - Tomeka Maria RN - 04/09/2020 12:21 PM DETAIL TECHNICIAN Problem: Pain Goal: Control of pain at or below patient's documented comfort goal Outcome: Progressing as expected Goal: Reduction in pain sensation Outcome: Progressing as expected Problem: Discharge Planning Goal: Absence of venous thromboembolism Outcome: Progressing as expected Goal: Adequate for discharge Outcome: Progressing as expected Goal: Effective communication Outcome: Progressing as expected Problem: Falls, Risk of Goal: Absence of falls Outcome: Progressing as expected Problem: Bleeding, Risk of Goal: Absence of impaired coagulation signs and symptoms Outcome: Progressing as expected Goal: Absence of active bleeding Outcome: Progressing as expected Problem: Procedure Routine Goal: Knowledge of procedure Outcome: Progressing as expected are Plan - Judith Trevizo RN - 04/09/2020 11:27 AM DETAIL TECHNICIAN Problem: Procedure Routine Goal: Knowledge of procedure Outcome: Progressing as expected Hemodialysis Plan of care reviewed r/t treatment time, UF goal, dry wgt and fluid restrictions. Alsoreviewed care of dialysis access during tx. Pt updated during tx as needed with teaching done. Also reviewed possible side effects of HD tx, such as s/s of hypotension, cramping (during tx and at rare times after tx), n/v, CP or any other concerns. Patient acknowledge understanding of treatment plan (patient needs an laboratory animal facility supervisor, Trinidadian speaking) D Nurse Note - Irene Townsend RN - 04/08/2020 11:38 PM CSTFlorancedi Casillas, Daughter in law, [phone] signed by Irene Townsend RN at 04/08/2020 11:39 PM CSTED Nurse Note - Milagros Stuart RN - 04/08/2020 11:35 PM CSTPatient remains AAOx4. No distress noted. Resp even/unlabored. VSS per monitor. PICC to right upper extremity remains patent. Patient transported to floor via stretcher by ER staff. D Nurse Note - Milagros Stuart RN - 04/08/2020 11:30 PM CSTReport given to MAR[place]EL [place]. MARIE, primary/secondary survey, identified injuries, orders, treatments rev iewed. Milagros Stuart RN D Nurse Note - Milagros Stuart RN - 04/08/2020 9:30 PM CSTPatient resting in bed comfortably. No adverse reaction to blood transfusion noted. Continuous cardiac monitoring in place. Patient remains hypotensive. No new orders to complete. Daughter at patient bedside. D Nurse Note - Milagros Stuart RN - 04/08/2020 9:23 PM CSTPatient hypotensive. Patient placed in slight trendelenburg per Dr. Vora request. D Nurse Note - Irene Townsend RN - 04/08/2020 8:47 PM CSTSpoke with Eliana in hematology regarding APTT to be resulted. Blood already in lab D Nurse Note - Irene Townsend RN - 04/08/2020 8:06 PM Bud Ramirez at bedside obtaining blood administration consent. D Nurse Note - Milagros Stuart RN - 04/08/2020 7:15 PM Alissa Combs is a 75 year old male noted to be resting in room comfortably. Patient presented to [facility] to low HGB and pallor. Patient had CABG x3 weeks ago. Patient had lab work done earlier today and showed low HGB. Patient noted to be yakut speaking only, daughter at bedside to translate per patient request. Patient AAOx4. No distress noted. Respiratory even/unlabored. Heart rate/rhythm regular. Bowel sounds x4. Peripheral pulses x4. PICC line to right upper extremity. Dialysis graft to left fore arm. Patient resting in bed with continuous cardiac monitoring in place. D Nurse Note - Juanita Cabrera RN - 04/08/2020 6:20 PM Alissa Combs is a 75 year old male to room via ems from cardiac rehab. Daughter states today she went to visit and noticed patient was pale. Had labs drawn and show anemic. Had blood transfusion x2 in last week. Patient went to dialysis today but states "the machine was beeping because i was to weak so they took it off. Fistula to Left forearm. PICC line to right bicep. Patient c/o sob. No distress noted. AA&ox4. Mucous membranes pale. documented in this encounter Plan of Treatment Date Type Specialty Care Team Description 04/25/2020 Office Visit Thoracic Surgery Cornel Whitehead MD [address] [place] [address] [phone] 05/08/2020 Office Visit [place] [address] [place], [place] [address]rabia Mcnamara [address] [place] [address] [phone] 05/27/2020 Office Visit Gastroenterology Kendell Handley MD [address] [place] [address] [phone] 05/28/2020 Office Visit Geriatric Medicine Loren Christie MD [address] [place] [address] [phone] [place] [phone] Name Type Priority Associated Diagnoses Date/Ti me LAB ONLY COVID LAB Routine Anemia, unspecified 2019 9:05 PM INTERPRETATION type DETAIL TECHNICIAN Name Type Priority Associated Diagnoses Order S chedule MRSA / MSSA Screen by PCR, LAB Routine O NCE for 1 Occurrences Nares starting 2019 until 0 LAB ONLY COVID LAB Routine Anemia, unspecified ONCE f or 1 Occurrences INTERPRETATION type starting 03/24 until 0, 1 completed Health Maintenance Due Date Last Done Comments [...] this encounter Implants Implanted Type Area Associate Account Manager Device Shelf Model / Identifier Expiration Serial / Date Lot Kiki Royal035 4mm X 40mm X 75cm 5fr Bard#[id number] - Sn/A Papi n Left: Arm Bard 07/30/2020 [id number] / Implanted: Qty: 1 on 03/15/2018 by Compa Catherine MD at [facility] N/A / [id number] Angio-Seal [employer] Vascular Closure Device [employer] #[id number] - S0 OCCLUSION Right: Terumo 09/20/2018 [id number] / Implanted: Qty: 1 on 08/09/2018 by Phi Perdue Jr., MD at [facility] DEVICE Groin 0 / [id number] Stent, [place] [id number] Viabahn Vasc 120cm Cath #[id number] - S [id number] STENT Left: Arm W L [place] 02/01/2021 [id number] / Implanted: Qty: 1 on 06/28/2018 by Compa Catherine MD at [facility] [id number] / NA documented as of this encounter Procedures Procedure Name Priority Date/Time Associated Comments Diagnosis HEMOGLOBIN STAT 04/11/2020 Results for 9:26 AM DETAIL TECHNICIAN this procedure are in the results section. POCT GLUCOSE (AUTOMATED) Routine 04/10/2020 Res ults for 7:26 PM DETAIL TECHNICIAN this procedure are in the results section. POCT GLUCOSE (AUTOMATED) Routine 04/10/2020 Res ults for 11:31 AM DETAIL TECHNICIAN this procedure are in the results section. CBC WITH DIFF Routine 04/10/2020 Results for 6:11 AM DETAIL TECHNICIAN this procedure are in the results section. BASIC METABOLIC PANEL (NA, K, Routine 04/10/2020 Results for CL, CO2, GLUCOSE, BUN, 6:11 AM DETAIL TECHNICIAN this CREATININE, CA) procedure ar e in the results section. ESOPHAGOGASTRODUODENOSCOPY Level 2 04/09/2020 Upper GI bleed (within 6 4:35 PM DETAIL TECHNICIAN hours) EGD (ENDO) Routine 04/09/2020 4:21 PM DETAIL TECHNICIAN CBC WITHOUT DIFF STAT 04/09/2020 Results for 8:23 AM DETAIL TECHNICIAN this procedure are in the results section. BASIC METABOLIC PANEL (NA, K, Routine 04/09/2020 Results for CL, CO2, GLUCOSE, BUN, 5:25 AM DETAIL TECHNICIAN this CREATININE, CA) procedure ar e in the results section. MAGNESIUM Routine 04/09/2020 Results for 5:25 AM DETAIL TECHNICIAN this procedure are in the results section. PHOSPHORUS Routine 04/09/2020 Results for 5:25 AM DETAIL TECHNICIAN this procedure are in the results section. TRANSFUSE PACKED RBC Routine 04/09/2020 4:01 AM DETAIL TECHNICIAN PREPARE PACKED RBC Routine 04/09/2020 Results f or 1:32 AM DETAIL TECHNICIAN this procedure are in the results section. TRANSFUSE PACKED RBC Routine 04/08/2020 11:06 PM DETAIL TECHNICIAN COVID-19 (ID NOW RAPID TESTING) Routine 04/08/2020 Anemia, Results for 9:05 PM DETAIL TECHNICIAN unspecified this type procedure are in the results section. PREPARE PACKED RBC Routine 04/08/2020 Anemia, Results f or 8:58 PM DETAIL TECHNICIAN unspecified this type procedure are in the results section. HB ABO GROUPING STAT 04/08/2020 Anemia, Results for 6:39 PM DETAIL TECHNICIAN unspecified this type procedure are in the results section. EXTRA TUBE LT. BLUE STAT 04/08/2020 6:38 PM DETAIL TECHNICIAN FIBRINOGEN STAT Add-On 04/08/2020 Results for 6:38 PM DETAIL TECHNICIAN this procedure are in the results section. ACTIVATED PARTIAL THRMPLAS DAGOBERTO Routine 04/08/2020 Anemia, Results for 6:38 PM DETAIL TECHNICIAN unspecified this type procedure are in the results section. PROTHROMBIN TIME / INR STAT Add-On 04/08/2020 Anemia, Resul ts for 6:38 PM DETAIL TECHNICIAN unspecified this type procedure are in the results section. CBC WITH DIFF STAT 04/08/2020 Anemia, Results for 6:38 PM DETAIL TECHNICIAN unspecified this type procedure are in the results section. IRON PANEL Add-on 04/08/2020 Results for 6:38 PM DETAIL TECHNICIAN this procedure are in the results section. COMP. METABOLIC PANEL (33124) STAT 04/08/2020 Anemia, Results for 6:38 PM DETAIL TECHNICIAN unspecified this type procedure are in the results section. HOSPITAL ADMISSION Routine 04/08/2020 12:01 AM DETAIL TECHNICIAN documented in this encounter Results HEMOGLOBIN (04/11/2020 9:26 AM DETAIL TECHNICIAN) Pathologist Sig nature HGB 8.4 (L) 12.2 - 16.4 g/dL [facility] Specimen Blood - VENOUS Performing Organization Address City/State/Zipcode Phone Number [facility] CLIA: [id number] [place] [address] 301 [facility] POCT GLUCOSE (AUTOMATED) (04/10/2020 7:26 PM DETAIL TECHNICIAN) Pathologist Sig nature POCT GLU 104 70 - 110 mg/dL [facility] Specimen Blood Performing Organization Address City/[facility] Phone Number [facility] CLIA: [id number] [place] [address] [phone] [facility] POCT GLUCOSE (AUTOMATED) (04/10/2020 11:31 AM DETAIL TECHNICIAN) Pathologist Sig nature POCT GLU 184 (H)Comment: 70 - 110 mg/dL [facility] Specimen Blood Performing Organization Address City/[facility] Phone Number [facility] CLIA: [id number] [place] [address] [phone] [facility] Basic Metabolic Panel (NA, K, CL, CO2, Glucose, BUN, Creatinine, CA) (04/10/2020 6:11 AM DETAIL TECHNICIAN) NA 134 (L) 135 - 145 [facility] mmol/L SERVICES K 4.8 3.5 - 5.0 [facility] mmol/L SERVICES CL 105 98 - 108 mmol/L [facility] CO2 TOTAL 23 23 - 31 mmol/L [facility] AGAP 6 2 - 16 [facility] BUN 82 (H) 7 - 23 mg/dL [facility] GLUCOSE 146 (H) 70 - 110 mg/dL [facility] CREATININE 8.04 (H) 0.60 - 1.25 [facility] mg/dL SERVICES CALCIUM 7.7 (L) 8.6 - 10.6 [facility] mg/dL SERVICES eGFR Calculation 6.5 mL/min/1.73m2 [facility] (Non- SERVICES Tongan) eGFR Calculation 7.9 mL/min/1.73m2 [facility] () SERVICES Specimen Blood - HAND, RIGHT Narrative Performed At Association of Glomerular Filtration Rate (GFR) and St aging [facility] of Kidney Disease* [...] . Performing Organization Address City/State/Zipcode Phone Number [facility] CLIA: [id number] [place] [address] [place] [address] CBC with Differential (04/10/2020 6:11 AM DETAIL TECHNICIAN) Pathologist Sig nature WBC 7.52 4.20 - 10.70 [facility] 10*3/L SERVICES RBC 2.40 (L) 4.26 - 5.52 [facility] 10*6/L SERVICES HGB 7.3 (L) 12.2 - 16.4 [facility] g/dL SERVICES HCT 22.9 (L) 38.4 - 49.3 % [facility] MCV 95.4 81.7 - 95.6 fL [facility] MCH 30.4 26.1 - 32.7 pg [facility] MCHC 31.9 31.2 - 35.0 [facility] g/dL SERVICES RDW-SD 66.5 (H) 38.5 - 51.6 fL [facility] RDW-CV 21.4 (H) 12.1 - 15.4 % [facility] PLT 240 150 - 328 [facility] 10*3/L SERVICES MPV 9.8 9.8 - 13.0 fL [facility] NRBC/100 WBC 0.0 0.0 - 10.0 /100 [facility] WBCs SERVICES NRBC x10^3 <0.01 10*3/L [facility] GRAN MAT (NEUT) % 80.7 % [facility] IMM GRAN % 0.80 % [facility] LYMPH % 8.9 % [facility] MONO % 6.4 % [facility] EOS % 2.9 % [facility] BASO % 0.3 % [facility] GRAN MAT x10^3(ANC) 6.07 1.99 - 6.95 [facility] 10*3/uL SERVICES IMM GRAN x10^3 0.06 0.00 - 0.06 [facility] 10*3/uL SERVICES LYMPH x10^3 0.67 (L) 1.09 - 3.23 [facility] 10*3/uL SERVICES MONO x10^3 0.48 0.36 - 1.02 [facility] 10*3/uL SERVICES EOS x10^3 0.22 0.06 - 0.53 [facility] 10*3/uL SERVICES BASO x10^3 <0.03 0.01 - 0.09 [facility] 10*3/uL SERVICES Specimen Blood - HAND, RIGHT Performing Organization Address City/State/Zipcode Phone Number [facility] CLIA: [id number] [place] [address] [place] [address] CBC WITHOUT DIFF (04/09/2020 8:23 AM DETAIL TECHNICIAN) Pathologist Sig nature WBC 9.97 4.20 - 10.70 [facility] 10*3/L SERVICES RBC 2.51 (L) 4.26 - 5.52 [facility] 10*6/L SERVICES HGB 7.7 (L) 12.2 - 16.4 g/dL [facility] HCT 23.9 (L) 38.4 - 49.3 % [facility] MCH 30.7 26.1 - 32.7 pg [facility] MCV 95.2 81.7 - 95.6 fL [facility] MCHC 32.2 31.2 - 35.0 g/dL [facility] PLT 246 150 - 328 10*3/L [facility] MPV 10.1 9.8 - 13.0 fL [facility] RDW-CV 20.3 (H) 12.1 - 15.4 % [facility] RDW-SD 52.7 (H) 38.5 - 51.6 fL [facility] NRBC x10^3 0.07 10*3/L [facility] NRBC/100 WBC 0.7 0.0 - 10.0 /100 [facility] WBCs SERVICES IPF % [facility] Specimen Blood - ARM, RIGHT Performing Organization Address City/State/Zipcode Phone Number [facility] CLIA: [id number] [place] [address] [place] [address] Basic Metabolic Panel (NA, K, CL, CO2, Glucose, BUN, Creatinine, CA) (04/09/2020 5:25 AM DETAIL TECHNICIAN) NA 132 (L) 135 - 145 [facility] mmol/L SERVICES K 5.8 (H) 3.5 - 5.0 [facility] mmol/L SERVICES CL 103 98 - 108 mmol/L [facility] CO2 TOTAL 18 (L) 23 - 31 mmol/L [facility] AGAP 11 2 - 16 [facility] BUN 107 (H) 7 - 23 mg/dL [facility] GLUCOSE 96 70 - 110 mg/dL [facility] CREATININE 8.64 (H) 0.60 - 1.25 [facility] mg/dL SERVICES CALCIUM 7.5 (L) 8.6 - 10.6 [facility] mg/dL SERVICES eGFR Calculation 6.0 mL/min/1.73m2 [facility] (Non- SERVICES Tongan) eGFR Calculation 7.3 mL/min/1.73m2 [facility] () SERVICES Specimen Blood - VENOUS Narrative Performed At Association of Glomerular Filtration Rate (GFR) and St aging [facility] of Kidney Disease* [...] in imaging tests) . Performing Organization Address City/[facility]/Zipcode Phone Number [facility] CLIA: [id number] [place] [address] [place] [address] Phosphorus Serum (04/09/2020 5:25 AM DETAIL TECHNICIAN) Pathologist Sig nature PHOSPHORUS 4.0 2.5 - 5.0 mg/dL [facility] Specimen Blood - VENOUS Performing Organization Address [facility] Phone Number [facility] CLIA: [id number] [place] [address] [place] [address] Magnesium Serum (04/09/2020 5:25 AM DETAIL TECHNICIAN) Pathologist Sig nature MAGNESIUM 2.0 1.7 - 2.4 mg/dL [facility] Specimen Blood - VENOUS Performing Organization Address [facility] Phone Number [facility] CLIA: [id number] [place] [address] [place] [address] Prepare Packed RBC (in units), 1 Units (04/09/2020 1:32 AM DETAIL TECHNICIAN) [facility] Cross Match Result Compatible LAB ISBT Blood Type Code 6200 LAB Unit Blood Type A Pos LAB Unit Number [id number] LAB Blood Expiration Date & LAB Time Status Information Issued LAB Product Identification Red Blood Cells LAB Product Code [id number] LAB Comment: Performed at [facility] Laboratory Services - [facility] Blood Bank [address] [place] [address] Toll Free: [phone] CLIA No. [id number] Specimen Performing Organization Address [facility] Phone Number [facility] COVID-19 (ID NOW RAPID TESTING) (04/08/2020 9:05 PM DETAIL TECHNICIAN) [facility] SARS-CoV-2 Rapid ID Not Detected Not Detected [facility] NOW SERVICES Specimen Swab - NASOPHARYNGEAL SWAB Narrative Performed At [facility] COVID-19 Assay is an isothermal nucleic acid [facility] amplification test intended for the qualitative detect ion of nucleic acid from SARS-CoV-2 viral RNA in nasopharynge al ([employer]) specimens. It is used under Emergency Use [...] indicated. Performing Organization Address City/State/Zipcode Phone Number [facility] CLIA: [id number] [place] [address] [place] [address] Prepare Packed RBC (in units), 1 Units (04/08/2020 8:58 PM DETAIL TECHNICIAN) Cross Match Result Compatible LAB ISBT Blood Type Code 0600 LAB Unit Blood Type A Neg LAB Unit Number [id number] LAB Blood Expiration Date & LAB Time Status Information Issued LAB Product Identification Red Blood Cells LAB Product Code [id number] LAB Comment: Performed at [facility] Laboratory Services - [facility] Blood [place] [address] Toll Free: [phone] CLIA No. [id number] Specimen Performing Organization Address [facility] Cent[facility] Phone Number [facility] LAB Type and Screen - ONCE STAT (04/08/2020 6:39 PM DETAIL TECHNICIAN) Pathologist Sig nature ABO & RH AB POSITIVE LAB Comment: Performed at [facility] Laboratory Services - [facility] Blood [place] [address] Toll Free: [phone] CLIA No. [id number] IAT Negative LAB Comment: Performed at [facility] Laboratory Services - [facility] Blood [place] [address] Toll Free: [phone] CLIA No. [id number] Specimen Blood - VENOUS Performing Organization Address City/[facility]/Zipcooh Phone Number [facility] LAB IRON PANEL (04/08/2020 6:38 PM DETAIL TECHNICIAN) Pathologist Sig nature IRON 45 (L) 50 - 160 ug/dL [facility] TIBC 227 (L) 250 - 410 ug/dL [facility] % FE SAT 20 20 - 50 % [facility] Specimen Blood - VENOUS Performing Organization Address [facility] Phone Number [facility] CLIA: [id number] [place] [address] [phone] [facility] Fibrinogen (04/08/2020 6:38 PM DETAIL TECHNICIAN) Pathologist Sig nature Fibrinogen 262 167 - 453 mg/dL [facility] Specimen Blood Performing Organization Address [facility] Phone Number [facility] CLIA: [id number] [place] [address] [phone] [facility] ACTIVATED PARTIAL THRMPLAS DAGOBERTO (04/08/2020 6:38 PM DETAIL TECHNICIAN) Pathologist Sig nature APTT Patient <20 (L) 26 - 36 Seconds [facility] Specimen Blood Performing Organization Address [facility] Phone Number [facility] CLIA: [id number] [place] [address] [phone] [facility] PROTHROMBIN TIME / INR (04/08/2020 6:38 PM DETAIL TECHNICIAN) PROTIME PATIENT 12.5 10.1 - 12.6 [facility] Seconds SERVICES INR 1.1Comment: Normal [facility] INR <1.1; Warfarin SERVICES Therapeutic range 2.0 to 3.0 or 2.5 to 3.5, depending upon the indications. Specimen Blood Performing Organization Address City/[facility] Cent[facility] Phone Number [facility] CLIA: [id number] [place] [address] [phone] [facility] EXTRA TUBE LT. BLUE (04/08/2020 6:38 PM DETAIL TECHNICIAN) Specimen Blood Performing Organization Address [facility] Centercode Phone Number [facility] CLIA: [id number] [place] [address] [phone] [facility] COMP. Metabolic Panel (78928) (04/08/2020 6:38 PM DETAIL TECHNICIAN) NA 133 (L) 135 - 145 [facility] mmol/L SERVICES K 5.6 (H) 3.5 - 5.0 [facility] mmol/L SERVICES CL 101 98 - 108 mmol/L [facility] CO2 TOTAL 19 (L) 23 - 31 mmol/L [facility] AGAP 13 2 - 16 [facility] BUN 103 (H) 7 - 23 mg/dL [facility] GLUCOSE 118 (H) 70 - 110 mg/dL [facility] CREATININE 8.39 (H) 0.60 - 1.25 [facility] mg/dL SERVICES TOTAL BILI 0.6 0.1 - 1.1 mg/dL [facility] CALCIUM 7.6 (L) 8.6 - 10.6 [facility] mg/dL SERVICES T PROTEIN 4.4 (L) 6.3 - 8.2 g/dL [facility] ALBUMIN 2.5 (L) 3.5 - 5.0 g/dL [facility] ALK PHOS 42 34 - 122 U/L [facility] ALTv 8 5 - 50 U/L [facility] AST(SGOT) 24 13 - 40 U/L [facility] eGFR Calculation 6.2 mL/min/1.73m2 [facility] (Non- SERVICES Tongan) eGFR Calculation 7.5 mL/min/1.73m2 [facility] () SERVICES Specimen Blood - VENOUS Narrative Performed At Association of Glomerular Filtration Rate (GFR) and St aging [facility] of Kidney Disease* + + +------- ------ + | GFR (mL/min/1.73 m2) | With Kidney Damage | Marga lopez Kidney Damage + + +------- ------ + [...] City/State/Zipcode Phone Number [facility] CLIA: [id number] [place] [address] [place] [address] CBC with DIFF (04/08/2020 6:38 PM DETAIL TECHNICIAN) Pathologist Sig nature WBC 13.24 (H) 4.20 - 10.70 [facility] 10*3/L SERVICES RBC 1.57 (L) 4.26 - 5.52 [facility] 10*6/L SERVICES HGB 4.7 (LL) 12.2 - 16.4 [facility] g/dL SERVICES HCT 15.9 (L) 38.4 - 49.3 % [facility] MCV 101.3 (H) 81.7 - 95.6 fL [facility] MCH 29.9 26.1 - 32.7 pg [facility] MCHC 29.6 (L) 31.2 - 35.0 [facility] g/dL SERVICES RDW-SD 74.7 (H) 38.5 - 51.6 fL [facility] RDW-CV 22.8 (H) 12.1 - 15.4 % [facility] PLT 296 150 - 328 [facility] 10*3/L SERVICES MPV 11.0 9.8 - 13.0 fL [facility] NRBC/100 WBC 0.7 0.0 - 10.0 /100 [facility] WBCs SERVICES NRBC x10^3 0.09 10*3/L [facility] GRAN MAT (NEUT) % 86.3 % [facility] IMM GRAN % 1.20 % [facility] LYMPH % 7.6 % [facility] MONO % 4.2 % [facility] EOS % 0.5 % [facility] BASO % 0.2 % [facility] GRAN MAT x10^3(ANC) 11.44 (H) 1.99 - 6.95 [facility] 10*3/uL SERVICES IMM GRAN x10^3 0.16 (H) 0.00 - 0.06 [facility] 10*3/uL SERVICES LYMPH x10^3 1.00 (L) 1.09 - 3.23 [facility] 10*3/uL SERVICES MONO x10^3 0.55 0.36 - 1.02 [facility] 10*3/uL SERVICES EOS x10^3 0.07 0.06 - 0.53 [facility] 10*3/uL SERVICES BASO x10^3 <0.03 0.01 - 0.09 [facility] 10*3/uL SERVICES Specimen Blood - VENOUS Performing Organization Address City/State/Zipcode Phone Number [facility] CLIA: [id number] [place] [address] [place] [address] Blvd documented in this encounter Visit Diagnoses Diagnosis Anemia, unspecified type - Primary Upper GI bleed Hemorrhage of gastrointestinal tract, un specified S/P CABG x 2 (free MATA-LAD, 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;Dr Whitehead Postsurgical aortocoronary bypass status Essential hypertension, benign Gastritis and duodenitis Unspecified gastritis and gastroduodenit is without mention of hemorrhage ESRD (end stage renal disease) End stage renal disease documented in this encounter Administered Medications Medication Order MAR Action Action Date Dose Rate Site amLODIPine (NORVASC) tablet 5 mg Given 04/11/2020 11:04 AM DETAIL TECHNICIAN 5 mg 5 mg, Oral, DAILY, First dose on Mimi 04/11/20 at 0915, Until Discontinued, Routine aspirin chewable tablet 81 mg Given 04/11/2020 9:16 AM DETAIL TECHNICIAN 81 mg 81 mg, Oral, DAILY, First dose on Wed04/09/20 at 0900, Until Discontinued, Routine Given 04/10/2020 8:24 AM DETAIL TECHNICIAN 81 mg Given 04/09/2020 9:36 AM DETAIL TECHNICIAN 81 mg atorvastatin (LIPITOR) tablet 80 mg Given 04/10/2020 7:45 PM DETAIL TECHNICIAN 80 mg 80 mg, Oral, QHS, First dose on 04/08/20 at 2100, Until Discontinued, Routine Given 04/09/2020 9:00 PM DETAIL TECHNICIAN 80 mg Given 04/09/2020 12:03 AM DETAIL TECHNICIAN 80 mg famotidine (PEPCID AC) tablet 20 mg Given 04/11/2020 9:16 AM DETAIL TECHNICIAN 20 mg 20 mg, Oral, BID, First dose on 04/09/20 at 2045, Until Discontinued, Routine Given 04/10/2020 7:45 PM DETAIL TECHNICIAN 20 mg Given 04/10/2020 8:24 AM DETAIL TECHNICIAN 20 mg metoprolol tartrate (LOPRESSOR) tablet 2 5 mg Given 04/11/2020 9:16 AM DETAIL TECHNICIAN 25 mg 25 mg, Oral, BID, First dose on Wed04/10/20 at 1200, Until Discontinued, Routine Given 04/10/2020 7:45 PM DETAIL TECHNICIAN 25 mg Given 04/10/2020 12:21 PM DETAIL TECHNICIAN 25 mg pantoprazole (PROTONIX) EC tablet 40 mg Given 04/11/2020 9:16 AM DETAIL TECHNICIAN 40 mg 40 mg, Oral, BID, First dose on Wed04/09/20 at 2045, Until Discontinued, Routine Given 04/10/2020 7:45 PM DETAIL TECHNICIAN 40 mg Given 04/10/2020 8:24 AM DETAIL TECHNICIAN 40 mg sennosides (SENOKOT) tablet 8.6 mg Given 04/11/2020 9:16 AM DETAIL TECHNICIAN 8.6 mg 8.6 mg, Oral, BID, First dose on Wed04/09/20 at 0800, Until Discontinued, Routine Given 04/10/2020 7:44 PM DETAIL TECHNICIAN 8.6 mg Given 04/10/2020 8:24 AM DETAIL TECHNICIAN 8.6 mg sevelamer (RENVELA) tablet 1,600 mg Given 04/11/2020 9:16 AM DETAIL TECHNICIAN 1,600 mg 1,600 mg, Oral, TID MEALS, First dose on Wed04/09/20 at 0800, Until Discontinued, Routine Given 04/10/2020 1:22 PM DETAIL TECHNICIAN 1,600 mg Given 04/10/2020 8:24 AM DETAIL TECHNICIAN 1,600 mg simethicone (GAS RELIEF (SIMETHICONE)) Given 04/11/2020 9:16 AM DETAIL TECHNICIAN 80 mg chewable tablet 80 mg 80 mg, Oral, PC+HS, First dose on Wed04/08/20 at 2100, Until Discontinued, Routine Given 04/10/2020 7:45 PM DETAIL TECHNICIAN 80 mg Given 04/10/2020 1:22 PM DETAIL TECHNICIAN 80 mg Medication Order MAR Action Action Date Dose Rate Site lactated ringers IV New Bag 04/09/2020 4:00 AM DETAIL TECHNICIAN 1,000 mL 125 mL/hr infusion 1,000 mL at 125 mL/hr, 1,000 mL, IV Infusion, CONTINUOUS, Starting Wed04/08/20 at 2030, Until Wed04/09/20 at 1236, Routine pantoprazole (PROTONIX) 80 mg in NaCl 0.9% Given 04/08/2020 9:0 0 PM DETAIL TECHNICIAN 80 mg (NS) 20 mL syringe 80 mg, IV Push, ONCE, 1 dose, 04/08/20 at 2100, 20 mL pantoprazole (PROTONIX) 80 mg in New Bag 04/09/2020 2:[address] 8 mg/hr 50 mL/hr NaCl 0.9% (NS) 500 mL infusion 8 mg/hr (50 mL/hr), IV Infusion, CONTINUOUS, Starting 04/08/20 at 2100 New Bag 04/08/2020 11:37 PM DETAIL TECHNICIAN 8 mg/hr 50 mL/hr documented in this encounter Additional Health Concerns Infection Onset Date Last Indicated Resolved Time COVID-19 Rule Out 04/08/2020 04/08/2020 04/08/2020 9: 41 PM DETAIL TECHNICIAN documented as of this encounter Insurance Payer Benefit Plan Subscriber ID Effective Phone Address Typ e / Group Dates MEDICARE MEDICARE PART [id number] 2003-Pres [phone] Medicare A & B ent [phone] [place] [phone] [facility] [id number] 2016-[place] Medic aid HEALTHCARE COMM STAR PLUS nt PLAN - MANAGED MEDICAID documented as of this encounter Advance Directives Type Date Recorded Patient Inside Sales Advertising Executive Explanati on Advance Directives and Living 01/25/2015 10:11 AM Will Power of Road Cleaner 01/25/2015 10:11 AM
--- OUTSIDE RECORDS SUMMARY | 2020-05-30 21:36 | XMS REPORT | Summary of Care ---
:1945 Author Organization [facility] Address [address] [place] [address] Care Team Providers Name Role Phone Loren Christie MD Unavailable Estephania Dsouza DO Unavailable LEONARDO James Unavailable Pcp-Lab Unavailable Unavailable DEISY Winn Unavailable Edi Christie MD Primary Care Provider Reason for Visit Reason Comments Notification Encounter Details Date Type Department Care Team Description 04/15/2020 Telephone [facility] Geriatrics- Loren Christie MD Notification [id number] [place] [address] [place] [address], [address] [place] [address] Allergies No Known Allergiesdocumented as of this encounter (statuses as of 04/16/2020) Medications Medication Sig Dispensed Refills Start Date [...] x 2 times daily for 30 days. metoprolol tartrate Take 1 tablet by 60 [...] mouth daily. ESRD (end stage renal disease) atorvastatin 80 mg Take 1 tablet by 90 tablet 1 04/12/2020 Active tabletIndications: mouth at S/P CABG x 2 bedtime. 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 05/02/2019 Malfunction of arteriovenous dialysis fistula, initial encounter 03/31/2019 Overview: Added automatically from request for israel peoples [id number] Bilateral carotid artery stenosis 07/27/2018 Overview: Added automatically from request for is[place] peoples [id number] TIA (transient ischemic attack) 05/29/2018 Dialysis patient 04/18/2018 ESRD (end stage renal disease) 01/03/2018 Overview: Added automatically from request for is[place] peoples [id number] Diabetic polyneuropathy associated with type 2 diabete [...] HLD (hyperlipidemia) 02/26/2011 Overview: ICD10 Diagnosis Term Epic Manager Utility Backache 08/05/2006 Overview: Lower back pain - totally disabled ICD10 Diagnosis Term Epic Manager Utility Hearing loss 08/05/2006 Overview: Both ears ICD10 Diagnosis Term Epic Manager Utility documented as of this encounter (statuses as of 04/16/2020) Resolved Problems Problem Noted Date Resolved Date CKD (chronic kidney disease) stage 4, GFR 15-29 ml/min 06/0304/29/2018 Need for vaccination 03/30/2017 04/29/2018 Uncontrolled type 2 diabetes mellitus with stage 4 chronic 1 04/29/2018 kidney disease, with long-term current use of insulin Type 2 diabetes mellitus with diabetic chronic kidney 201403/17/2016 disease documented as of this encounter (statuses as of 04/16/2020) Immunizations Name Administration Dates Next Due Influenza [...] with No / Unsure 04/08/2020 6:17 PM SALES AND MARKETING ADMINISTRATOR someone who was confirmed or suspected to have 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 documented as of this encounter Last Filed Vital Signs Not on filedocumented in this encounter Miscellaneous Notes Telephone Encounter - Macho James GNP - 04/16/2020 8:57 AM CSTspoke to Miguel- ok for SN/PT plan- asking for 3 in 1 commode- will see patient tomorrow and order S AND MARKETING ADMINISTRATOR Telephone Encounter - Liliam Marcus - 04/15/2020 4:58 PM CSTArtgrecia Combs is a 75 year old male [place] [facility] [place] [facility] is calling [facility] living twice a week, and PT will come and eval patient and patient denied OT. Please call [phone]. Thank you. documented in this encounter Plan of Treatment Date Type Specialty Care Team Description 04/17/2020 Office Visit Geriatric Medicine Macho James GNP [address] [place] [address] [address] [place] [phone] 04/25/2020 Office Visit Thoracic Surgery Cornel Whitehead MD [address] [place] [address] [phone] 05/08/2020 Office Visit Cardiology William Church MD [address] [place] [address] [phone] 05/27/2020 Office Visit Gastroenterology Kendell Kingston MD [address] [place] [address] [phone] 05/28/2020 Office Visit Geriatric Medicine Loren Christie MD [address] [place] [address] [address] [place] [phone] Health Maintenance Due Date Last Done Comments [...] of this encounter Implants Implanted Type Area Wet Cleaner Machine Device Shelf Model / Identifier Expiration Serial / Date Lot Lutonix .035 4mm X 40mm X 75cm 5fr Bard#[id number] - Sn/A Balloo n Left: Arm Bard 07/30/2020 [id number] / Implanted: Qty: 1 on 03/15/2018 by Compa Catherine MD at [facility] N/A / [id number] Angio-Seal Evolution Vascular Closure Device [employer] M edical #[id number] - S0 OCCLUSION Right: Terumo 09/20/2018 [id number] / Implanted: Qty: 1 on 08/09/2018 by Phi Perdue Jr., MD at [facility] DEVICE Groin 0 / [id number] Stent, [place] [id number] Viabahn Vasc 120cm Cath #[id number] - S [id number] STENT Left: Arm Sweetie Sheridan 02/01/2021 [id number] / Implanted: Qty: 1 on 06/28/2018 by Compa Catherine MD at [facility] [id number] / NA documented as of this encounter Results Not on filedocumented in this encounter Insurance Payer Benefit Plan Subscriber ID Effective Phone Address Typ e / Group Dates MEDICARE MEDICARE PART [id number] 2003-Pres [phone] Medicare A & B ent [id number] [place] [id number] [facility] MEDICAID OF [id number] 2016-Prese [phone] Med icaid [place] nt [phone] [place] [address] MEDICARE MEDICARE PART [id number] 2003-Pres [phone] Medicare A & B ent [id number] [place] [phone] [facility] [id number] 2016-Prese Medic aid HEALTHCARE COMM STAR PLUS nt PLAN - MANAGED MEDICAID documented as of this encounter Advance Directives Type Date Recorded Patient Chief Of Field Operations Explanati on Advance Directives and Living 01/25/2015 10:11 AM Will Power of Healthcare Risk Control Consultant 01/25/2015 10:11 AM
--- OUTSIDE RECORDS SUMMARY | 2020-05-30 21:36 | XMS REPORT | Summary of Care ---
:1945 Author Organization [facility] - [facility] Address [address] [place] [address] Care Team Providers Name Role Phone Loren Christie MD Unavailable Estephania Dsouza DO Unavailable LEONARDO James Unavailable Pcp-Lab Unavailable Unavailable DEISY Winn Unavailable Edi Christie MD Primary Care Provider Reason for Visit Reason Comments Transition Of Care Encounter Details Date Type Department Care Team Description 04/12/2020 Transition of Care 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 05/02/2019 Malfunction of arteriovenous dialysis fistula, initial encounter 03/31/2019 Overview: Added automatically from request for [place] [id number] Bilateral carotid artery stenosis 07/27/2018 Overview: Added automatically from request for [place] [id number] TIA (transient ischemic attack) 05/29/2018 Dialysis patient 04/18/2018 ESRD (end stage renal disease) 01/03/2018 Overview: Added automatically from request for israel peoples [id number] Diabetic polyneuropathy associated with type 2 diabete s mellitus 06/13/2015 Cancer of prostate with intermediate recurrence risk ( stage T2b-c or 11/13/2014 [place] 7 or PSA 10-20) Undiagnosed cardiac murmurs 01/05/2013 Diabetes mellitus due to underlying condition, control led, with chronic 02/26/2011 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 Essential hypertension, benign 02/26/2011 HLD (hyperlipidemia) 02/26/2011 Overview: ICD10 Diagnosis Term Clinical Geneticist Utility Backache 08/05/2006 Overview: Lower back pain - totally disabled ICD10 Diagnosis Term Clinical Geneticist Utility Hearing loss 08/05/2006 Overview: Both ears ICD10 Diagnosis Term Clinical Geneticist Utility documented as of this encounter (statuses [...] with No / Unsure 04/08/2020 6:17 PM REPATCHER someone who was confirmed or suspected to have 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 documented as of this encounter Last Filed Vital Signs Not on filedocumented in this encounter Miscellaneous Notes Telephone Encounter - Ravinder Kwok, RN - 04/12/2020 12:30 PM CST TRANSITIONAL CARE MANAGEMENT ASSESSMENT 04/12/2020 Jose Combs [id number] Jose Combs is a 75 year old /White male was admitted on 04/08/[address] He was discharged on 04/11/20 with discharge disposition of HR- Routine Discharge. Admitting Physician: Cornel Whitehead Discharge Diagnosis: FINAL DIAGNOSIS: Upper GI bleed Linked Episodes Type: Episode: Status: Noted: Resolved: Last update: Updated by: TRANSITION OF CARE TCM Active 04/11/2020 04/12/2020 12:19 PM Ravinder Kwok RN Comments: TCM Eez-swbn-st-face outreach documentation: Discharge Assessment Chart Assessed: 04/12/20 TCM Outreach Completed: 04/12/20 Do you have a few minutes to speak with me about how you are doing at home?: Yes(Spoke with pt's daughter in law. States pt is doing ok.) Discharge Instructions Do you understand your at-home instructions?: Yes(No questions at this time.) Medications Have you filled your prescriptions and do you have them in your home? : Yes Do you know how to take your medications?: Yes(No questions.) Can you provide me with the names or descriptions of any xxwr-dxd-lavruko or supplements you are currently taking?: Yes Supplies Did you receive applicable home medical supplies/equipment?: N/A(No DME ordered. Dtr asked if any was ordered, states [facility] told her BSC was to be ordered. Offered to request order from physician. States she will purchase raised toilet seat for now. Pt has a rollator to use.) Follow Up Appointment Has a follow up appointment been scheduled?: Yes Do you have any questions about your follow up appointments?: No Are you able to get to your appointment? Who will be taking you?: Yes(Family member) Home Health Assistance Has the home health nurse contacted you since you've been home?: Yes([facility] to [facility] pt 04/13/2020.) Survey - Recognition Is there anything you would like to share about your recent hospitalization, or anyone you would like to recognize?: No Do you have any suggestions for improvement?: No Do you have any other questions or concerns at this time?: No Future Appointments: Future Appointments Provider Department Dept Phone 04/25/2020 2:30 PM Cornel Whitehead MD [facility] [phone] 05/08/2020 3:30 PM William Church MD [facility] [phone] 05/27/2020 1:00 PM Kendell Kingston MD [facility] GASTROENTEROLOG[facility] [phone] 05/28/2020 8:30 AM Loren Christie MD [facility] [phone] Readmission Questions: Was patient discharged from any [...] a sick call/request with your provider?: No Your COVID 19 test results were negative. You may return to work or school when you are feeling better and have not had a fever for 24 hours or more without taking fever reducing medications, such as acetaminophen or ibuprofen. TCHER documented in this encounter Plan of Treatment Date Type Specialty Care Team Description 04/25/2020 Office Visit Thoracic Surgery Cornel Whitehead MD [address] [place] [address] KAYLEEN Dunlap [phone] 05/08/2020 Office [place] [address] [place] [address] Dr [address] Floor [place] [address] [phone] 05/27/2020 Office Visit Gastroenterology Kendell Kingston MD [address] [place] [address] [phone] 05/28/2020 Office Visit Geriatric Medicine Loren Chirstie MD [address] [place], [place] [address] [address] [place] [phone] Health Maintenance Due Date Last Done [...] of this encounter Implants Implanted Type Area Pearl Fisherman Device Shelf Model / Identifier Expiration Serial / Date Lot Lutonix .035 4mm X 40mm X 75cm 5fr Bard#[id number] - Sn/A Papi n Left: Arm Bard 07/30/2020 [id number] / Implanted: Qty: 1 on 03/15/2018 by Compa Catherine MD at [facility] N/A / [id number] Angio-Seal Evolution Vascular Closure Device [employer] M edical #[id number] - S0 OCCLUSION Right: Terumo 09/20/2018 [id number] / Implanted: Qty: 1 on 08/09/2018 by Phi Perdue Jr., MD at [facility] DEVICE Groin 0 / [id number] Stent, [place] [id number] Viabahn Vasc 120cm Cath #[id number] - S [id number] STENT Left: Arm W L [place] 02/01/2021 [id number] / Implanted: Qty: 1 on 06/28/2018 by Compa Catherine MD at [facility] [id number] / NA documented as of this encounter Results Not on filedocumented in this encounter Insurance Payer Benefit Plan Subscriber ID Effective Phone Address Typ e / Group Dates MEDICARE MEDICARE PART [id number] 2003-Pres [phone] Medicare A & B ent [phone] [id number] [place] [phone] [facility] MEDICAID OF [id number] 2016-Prese [phone] [address] Med icaid [place] nt [phone] [place] [address] MEDICARE MEDICARE PART [id number] 2003-Pres [phone] Medicare A & B ent [phone] [id number] [place] [phone] [facility] [id number] 2016-Prese Medic aid HEALTHCARE COMM STAR PLUS nt PLAN - MANAGED MEDICAID documented as of this encounter Advance Directives Type Date Recorded Patient Digital Forensics Examiner Explanati on Advance Directives and Living 01/25/2015 10:11 AM Will Power of Advanced Practice Professional 01/25/2015 10:11 AM
--- OUTSIDE RECORDS SUMMARY | 2020-05-30 21:37 | XMS REPORT | Summary of Care ---
:1945 Author Organization [facility] Address [address] [place] [id number] Care Team Providers Name Role Phone Loren Christie MD Unavailable Estephania Dsouza DO Unavailable LEONARDO James Unavailable Pcp-Lab Unavailable Unavailable DEISY Winn Unavailable Edi Christie MD Primary Care Provider Reason for Visit Reason Comments Hospital F/U gi bleed Encounter Details Date Type Department Care Team Description 04/17/2020 Office Visit [facility] Macho James Gastrointestin al hemorrhage associated with gastric ulcer (Primary Dx); [facility] Coronary artery disease involving tribal coronary artery of tribal heart without angina pectoris; Primary Care [facility] [address] [facility] S/P CABG x 3; [facility], [facility] ESRD (end stage renal disease) [address] [place] [phone] Allergies No Known Allergiesdocumented as of this encounter (statuses as of 04/23/2020) Medications Medication Sig Dispensed Refills Start Date [...] as of this encounter (statuses as of 04/23/2020) Active Problems Problem Noted Date Upper GI bleed 04/08/2020 Heart failure 03/29/2020 S/P CABG x 2 (free MATA-LAD, 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;Dr Cyn gill 03/25/2020 Coronary artery disease involving tribal coronary sarah ry of tribal heart 03/19/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 ESRD (end stage renal disease) 03/19/2020 Dialysis patient 03/19/2020 Essential hypertension 03/19/2020 Dyspnea 2020 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 05/02/2019 Malfunction of arteriovenous dialysis fistula, initial encounter 03/31/2019 Overview: Added automatically from request for [place] peoples [id number] Bilateral carotid artery stenosis 07/27/2018 Overview: Added automatically from [employer] for [place] [id number] TIA (transient ischemic attack) 05/29/2018 Dialysis patient 04/18/2018 ESRD (end stage renal disease) 01/03/2018 Overview: Added automatically from request for [place] peoples [id number] Diabetic polyneuropathy associated with type 2 diabete s mellitus 06/13/2015 Cancer of prostate with intermediate recurrence risk ( stage T2b-c or 11/13/2014 [place] 7 or PSA 10-20) Undiagnosed cardiac murmurs 01/05/2013 Diabetes mellitus due to underlying condition, control led, with chronic 02/26/2011 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 Essential hypertension, benign 02/26/2011 HLD (hyperlipidemia) 02/26/2011 Overview: ICD10 Diagnosis [employer] Backache 08/05/2006 Overview: Lower back pain - totally disabled ICD10 Diagnosis [employer] Hearing loss 08/05/2006 Overview: Both ears ICD10 Diagnosis [employer] documented as of this encounter (statuses as of 04/23/2020) Resolved Problems Problem Noted Date Resolved Date CKD (chronic kidney disease) stage 4, GFR 15-29 ml/min 06/0304/29/2018 Need for vaccination 03/30/2017 04/29/2018 Uncontrolled type 2 diabetes mellitus with stage 4 chronic 1 04/29/2018 kidney disease, with long-term current use of insulin Type 2 diabetes mellitus with diabetic chronic kidney 201403/17/2016 disease documented as of this encounter (statuses as of 04/23/2020) Immunizations Name Administration Dates Next Due Influenza High Dose 03/02/2019, 02/22/2018, 03/30/2017, 2016, 03/12/2015, 03/15/2014, 03/02/2013, 03/19/2011 Influenza High Dose Quad 02/27/2020 Pneumococcal 13 Conjugate, PCV13 09/28/2016, 2016 (Prevnar 13) Pneumococcal Polysaccharide, PPSV23 03/19/2011 (PNEUMOVAX) Zoster(Zostavax)(Shingles) 09/28/2016 documented as of this encounter Social History Tobacco Use Types Packs/Day Years Used Date Former Smoker Cigarettes 1 Quit: 1989 Smokeless Tobacco: Never Used Alcohol Use Drinks/Week oz/Week Comments Not Currently quit 20 yrs ago Sex Assigned at Date Recorded Not on file COVID-19 Exposure Response Date Recorded In the last month, have you been in contact with No / Unsure 04/17/2020 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 [employer] HARDWARE DESIGN ENGINEER Macho James GNP - 04/17/2020 1:00 PM CST Transitional Care Management: [id number] Visit 04/17/2020 Jose Combs is a 75 year old male that was admitted on 04/08/[address] He was discharged on 04/11/20 with a discharge disposition of HR- Routine Discharge. Jose is here today for a hospital follow-up/transitional care management visit. [facility] Outreach Completed: 04/12/20 CC: Hospital F/U (gi bleed) HPI Patient is a 75 year old male accompanied by his dtr in law who is here today for follow up after hospitalization. Patient hospitalized from 04/08/20- 04/11/20 at [facility] for GI bleed- Hgb 4.8. Required 2 u PRBcs- underwent EGD- + multiple nonbleeding ulcers. Plavix held and now only on ASA. No dark stools noted, + still feels tired/weak. Patient was hospitalized 03/17/20-03/29/20 at [facility]- CHF- underwent CABG x3 - some issues:Intraop difficulty placing saab. Dr. Valverde was present for intraoperative consultation. He performed cystoscopy with serial dilatation of bladder neck contracture. Intraopfindings - pinpoint bladder neck contracture at site of vesicourethral anastomosis (known hx and last treated in 2015). + low BP post op; + anemia- Hgb 6.9 upon d/c- family declined transfusion. Transferred to [facility] on 03/29/20, vasovagal episode - HGb rechecked noted 5.7- transfused 2 u PRBCs, when rechecked 04/08/20 4.8- transferred to [facility]. Since discharge condition is improving. Patient complains today of cough clear sputum- hard to clear. Patient denies chest pain, SOB. Patient also reports right fingers cool, tingling. Noted since last admission to hospital. HH- Village in place- SN/PT/OT Allergies Jose has No Known Allergies. Medications Outpatient Medications Prior to Visit Medication Sig Dispense Refill atorvastatin 80 mg tablet Take 1 tablet by mouth at bedtime. 90 tablet 1 amLODIPine 5 mg tablet Take 1 tablet by mouth daily. 90 tablet 1 aspirin 81 mg chewable tablet Take 1 tablet by mouth daily. 90 tablet 1 docusate 100 mg capsule Take 1 capsule by mouth 2 (two) times daily for 30 days. 60 capsule 0 famotidine 20 mg tablet Take 1 tablet by mouth 2 (two) times daily. 60 tablet 1 furosemide 80 mg tablet Take 1 tablet by mouth daily. metoprolol tartrate 25 mg tablet Take 1 tablet by mouth 2 (two) times daily. 60 tablet 2 pantoprazole 40 mg EC tablet Take 1 tablet by mouth 2 (two) times daily. 60 tablet 1 polyethylene glycol 17 gram/dose powder Take 17 g by mouth 2 (two) times daily as needed for Constipation. sodium bicarbonate 650 mg tablet Take 1 tablet by mouth 3 (three) times daily. clotrimazole 1 % topical cream Apply to area(s) 2 (two) times daily. 1 Tube 3 sevelamer 800 mg tablet 2 tablets 3 (three) times daily with meals. No facility-administered medications prior to visit. Histories Past Medical History: Diagnosis Date CKD (chronic [...] Left 03/15/2018 Surgeon: Compa Beltran; [facility] ANGIOPLASTY Left 06/28/2018 Surgeon: Compa Beltran; [facility] ANGIOPLASTY Left 12/12/2019 Surgeon: Carlos Wilkins MD; [facility] ARTERIOVENOUS FISTULA CREATION Left 01/14/2018 Surgeon: Compa Beltran; [facility] ARTERIOVENOUS FISTULA CREATION Left 2017 Left arm BACK SURGERY 2004 BLADDER NECK INCISION N/A 03/26/2015 Surgeon: Robert To; [facility] BLADDER NECK INCISION N/A 06/19/2015 Surgeon: Robert To; [facility] CAROTID ANGIOGRAPHY Bilateral 08/09/2018 Surgeon: Phi Perdue Jr., MD; [facility] CORONARY ARTERY BYPASS GRAFT N/A 03/25/2020 Surgeon: Cornel [facility] MD; [facility] CYSTOSCOPY N/A 03/25/2020 Surgeon: Keegan Valverde MD; [facility] ENDOSCOPIC VEIN HARVEST (SHX) Left 03/25/2020 Surgeon: Cornel [facility] MD; [facility] ENDOVASCULAR UPPER EXTREMITY ANGIOPLASTY Left [...] Left 06/28/2018 Surgeon: Compa Beltran; [facility] Social History Socioeconomic History Marital [...] Types: Cigarettes Quit date: 1989 Years since quittin.9 Smokeless tobacco: Never Used Substance and Sexual [...] - no children 4th grade education 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 Respiratory: Negative for shortness of breath. Cardiovascular: Positive for leg swelling. Negative for palpitations. Gastrointestinal: Negative for constipation and diarrhea. Genitourinary: Negative for dysuria and frequency. Musculoskeletal: Positive for gait problem (unsteady- walker). Negative for arthralgias and back pain. Neurological: Negative for dizziness. Psychiatric/Behavioral: Negative for sleep disturbance. Physical Exam Vitals signs reviewed. Exam conducted with a health inspector present. Constitutional: General: He is not in acute distress. Appearance: He is well-developed. Eyes: Comments: Pale conjunctiva Cardiovascular: Rate and Rhythm: Normal rate and regular rhythm. Heart sounds: Normal heart sounds. No murmur. No friction rub. No gallop. Pulmonary: Effort: Pulmonary effort is normal. No respiratory distress. Breath sounds: Examination of the left-lower field reveals decreased breath sounds. Decreased breath sounds present. No wheezing or rales. Abdominal: General: Bowel sounds are normal. Palpations: Abdomen is soft. Musculoskeletal: Normal range of motion. General: No tenderness. Right lower leg: Edema (trace ankle) present. Left lower leg: Edema (mid lower leg to foot 1+) present. Skin: General: Skin is warm and dry. Coloration: Skin is not pale. Comments: Well healing mid sternal incision; + eccyhmosis left inner thigh Neurological: Mental Status: He is alert and oriented to person, place, and time. Psychiatric: Mood and Affect: Mood normal. Vitals: 04/17/20 1308 04/17/20 1309 BP: 136/69 (!) 149/69 Patient Position: Sitting Standing Pulse: 84 87 Resp: 18 Temp: 35.9 C (96.7 F) TempSrc: Skin Weight: 146 lb 8 oz (66.5 kg) Height: 5' 6" (1.676 m) Assessment/Plan Gastrointestinal hemorrhage associated with gastric ulcer (primary encounter diagnosis) Comment: acute, slowly recovering to baseline Plan: dialysis to monitor weekly checked 2 d ago per dtr in law Will keep On asa only Continue PPI and H2 Gil for now Reviewed with daughter to watch color of skin, BP as quite low when at worst- call [facility] Coronary artery disease involving tribal coronary artery of tribal heart without angina pectoris-S/PCABG x 3 Comment: acute on chronic Plan: recovering well- continue to not use arms to push self uo- splint chest with cough Educated on expected recovery of leg swelling/bruising For f/u CT surgery next week ESRD (end stage renal disease) Comment: chronic, stable- [facility] Plan: continue with nephrology following FaceToFace Home Health Order I saw patient Jose Combs in the [facility] on 04/17/2020 for the followingmedical conditions and is the primary reason for home health care: ICD-10-CM ICD-9-CM 1. Gastrointestinal hemorrhage associated with gastric ulcer K25.4 531.40 2. Coronary artery disease involving tribal coronary artery of tribal heart without angina [id number] 414.01 3. S/P CABG x 3 Z95.1 V45.81 4. ESRD (end stage renal disease) N18.6 585.6 I certify, based on my findings, that the following services are medically necessary: Fci: Yes - Vitals/Medication Management Physical therapy: Yes - Evaluate and Treat Occupational therapy: Yes - Evaluate and Treat Speech language pathology: No Certified Home Health Aid: No Home Health Agency Floor Space Allocator: No Jose Combs has the following additional diagnoses: Patient Active Problem List Diagnosis Backache Hearing loss Diabetes mellitus due to underlying condition, controlled, with chronic kidney disease on chronic dialysis, without long-term current use of insulin Essential hypertension, benign HLD (hyperlipidemia) Undiagnosed cardiac murmurs Cancer of prostate with intermediate recurrence risk (stage T2b-c or [place] 7 or PSA 10-20) Diabetic polyneuropathy associated with type 2 diabetes mellitus ESRD (end stage renal disease) Dialysis patient TIA (transient ischemic attack) Bilateral carotid artery stenosis Malfunction of arteriovenous dialysis fistula, initial encounter 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 Dyspnea Coronary artery disease involving tribal coronary artery of tribal heart with angina pectoris ESRD (end stage renal disease) Dialysis patient Essential hypertension S/P CABG x 2 (free MATA-LAD, 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;Dr [facility] Heart failure Upper GI bleed I certify my clinical findings/ diagnoses support that this patient is homebound per CMS guidelines: A taxing effort exists for Jose Combs to leave home due to: Poor endurance due to: S/P Surgery , Requires an assistive device to leave home, Requires attendance of at least one other person to leave home and High risk of fall in leaving home I certify that this patient is under the care of the [facility] and that I had a [id number]-ll-[id number] encounter that meets the CMS gcny-ga-socq requirements with this patient as noted above. Rolling Walker or Rollator: I certify that Jose Combs is under my care and that I had a uxrn-[id number]-[id number] encounter with this patient on: 04/17/20 . The primary reason for the durable medical equipment: CAD, S/p CABG, severe anemia. I am ordering and certify that, based [...] Height: Ht Readings from Last 1 Encounters: 04/17/20 5' 6" (1.676 m) Weight: Wt Readings from Last 1 Encounters: 04/17/20 146 lb 8 oz (66.5 kg) Duration of need: 99 months. I certify that the following are true: Discharge records, pending tests and lab results reviewed: Yes Medications reviewed and reconciled: Yes Patient education provided to: patient and caregiver Follow-up arranged with other healthcare providers needed in patient's care: Yes Established applicable referrals: N/A Complexity of medical decision making is: High Macho James APRN, GNP- Geriatrics Internal Medicine [address] [place], [place] [address] documented in this encounter Plan of Treatment Date Type Specialty Care Team Description 04/25/2020 Office Visit Thoracic Surgery Cornel [facility] MD [address] [place] [address] [phone] 05/08/2020 Office Visit Cardiology William Church MD [address] [place] [address] [phone] 05/27/2020 Office Visit Gastroenterology Kendell Kingston MD [address] [place] [address] [phone] 05/28/2020 Office Visit Geriatric Medicine Loren Christie MD [address] [place] [address] [address] [place] [phone] Health Maintenance Due Date Last Done [...] of this encounter Implants Implanted Type Area Websphere Commerce Consultant Device Shelf Model / Identifier Expiration Serial / Date Lot Lutonix .035 4mm X 40mm X 75cm 5fr Bard#[id number] - Sn/A Balloo n Left: Arm Bard 07/30/2020 [id number] / Implanted: Qty: 1 on 03/15/2018 by Compa Catherine MD at [facility] N/A / [id number] Angio-Seal Evolution Vascular Closure Device [employer] M edical #[id number] - S0 OCCLUSION Right: Terumo 09/20/2018 [id number] / Implanted: Qty: 1 on 08/09/2018 by Phi Perdue Jr., MD at [facility] DEVICE Groin 0 / [id number] Stent, [place] [id number] Viabahn Vasc 120cm Cath #[id number] - S [id number] STENT Left: Arm W L [place] 02/01/2021 [id number] / Implanted: Qty: 1 on 06/28/2018 by Compa Catherine MD at [facility] [id number] / NA documented as of this encounter Results Not on filedocumented in this encounter Visit Diagnoses Diagnosis Gastrointestinal hemorrhage associated w ith gastric ulcer - Primary Coronary artery disease involving tribal coronary artery of tribal heart without angina pectoris S/P CABG x 3 Postsurgical aortocoronary bypass status ESRD (end stage renal disease) End stage renal disease documented in this encounter Insurance Payer Benefit Plan / Subscriber ID Effective Dates Phone Addre ss Type Group MEDICARE MEDICARE PART [id number] 2003-Prese 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
--- OUTSIDE RECORDS SUMMARY | 2020-05-30 21:37 | XMS REPORT | Summary of Care ---
:1945 Author Organization [facility] Address [address] [place] [address] Care Team Providers Name Role Phone Loren Christie MD Unavailable Estephania Dsouza DO Unavailable LEONARDO James Unavailable Pcp-Lab Unavailable Unavailable DEISY Winn Unavailable Edi Christie MD Primary Care Provider Reason for Visit Reason Comments Hospital F/U gi bleed Encounter Details Date Type Department Care Team Description 04/17/2020 Office Visit [facility] Macho James Gastrointestin al hemorrhage associated with gastric ulcer (Primary Dx); Geriatric[facility]- [facility] nacho GNP Coronary artery disease involving marshall coronary artery of marshall heart without angina pectoris; Primary Care Pavilio n [address] [facility] S/P CABG x 3; [facility], [facility] ESRD (end stage renal disease) [address] [place] [address] [phone] Allergies No Known Allergiesdocumented as of this encounter (statuses as of 04/17/2020) Medications Medication Sig Dispensed Refills Start Date [...] as of this encounter (statuses as of 04/17/2020) Active Problems Problem Noted Date Upper GI bleed 04/08/2020 Heart failure 03/29/2020 S/P CABG x 2 (free MATA-LAD, 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;Dr Cyn gill 03/25/2020 Coronary artery disease involving marshall coronary sarah ry of marshall heart 03/19/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 ESRD (end stage renal disease) 03/19/2020 Dialysis patient 03/19/2020 Essential hypertension 03/19/2020 Dyspnea 2020 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 05/02/2019 Malfunction of arteriovenous dialysis fistula, initial encounter 03/31/2019 Overview: Added automatically from request for israel peoples [id number] Bilateral carotid artery stenosis 07/27/2018 Overview: Added automatically from request for israel peoples [id number] TIA (transient ischemic attack) 05/29/2018 Dialysis patient 04/18/2018 ESRD (end stage renal disease) 01/03/2018 Overview: Added automatically from request for israel peoples [id number] Diabetic polyneuropathy associated with type 2 diabete [...] HLD (hyperlipidemia) 02/26/2011 Overview: ICD10 Diagnosis Term Kiln Furniture Caster Utility Backache 08/05/2006 Overview: Lower back pain - totally disabled ICD10 Diagnosis Term Kiln Furniture Caster Utility Hearing loss 08/05/2006 Overview: Both ears ICD10 Diagnosis Term Kiln Furniture Caster Utility documented as of this encounter (statuses as of 04/17/2020) Resolved Problems Problem Noted Date Resolved Date CKD (chronic kidney disease) stage 4, GFR 15-29 ml/min 06/0304/29/2018 Need for vaccination 03/30/2017 04/29/2018 Uncontrolled type 2 diabetes mellitus with stage 4 chronic 1 04/29/2018 kidney disease, with long-term current use of insulin Type 2 diabetes mellitus with diabetic chronic kidney 201403/17/2016 disease documented as of this encounter (statuses as of 04/17/2020) Immunizations Name Administration Dates Next Due Influenza [...] with No / Unsure 04/17/2020 12:46 PM ADVANCED PRACTICE PROFESSIONAL someone who was confirmed or suspected to have 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 documented as of this encounter Last Filed Vital Signs Vital Sign Reading Time Taken Comments Blood Pressure 149/69 04/17/2020 1:09 PM ADVANCED PRACTICE PROFESSIONAL Pulse 87 04/17/2020 1:09 PM ADVANCED PRACTICE PROFESSIONAL Temperature 35.9 C (96.7 F) 04/17/2020 1:08 PM ADVANCED PRACTICE PROFESSIONAL Respiratory Rate 18 04/17/2020 1:08 PM ADVANCED PRACTICE PROFESSIONAL Oxygen Saturation - - Inhaled Oxygen Concentration - - Weight 66.5 kg (146 lb 8 oz) 04/17/2020 1:08 PM ADVANCED PRACTICE PROFESSIONAL Height 167.6 cm (5' 6") 04/17/2020 1:08 PM ADVANCED PRACTICE PROFESSIONAL Body Mass Index 23.65 04/17/2020 1:08 PM ADVANCED PRACTICE PROFESSIONAL documented in this encounter Patient Instructions Patient InstructionsMacho James GNP - 04/17/2020 1:00 PM ADVANCED PRACTICE PROFESSIONAL Trial of Robitussin or mucinex for cough NCED PRACTICE PROFESSIONAL documented in this encounter Progress Notes Macho James GNP - 04/17/2020 1:00 PM CST Transitional Care Management: Etpc-qq-Lkyp Visit 04/17/2020 Jose Combs is a 75 year old male that was admitted on 04/08/[address] He was discharged on 04/11/20 with a discharge disposition of HR- Routine Discharge. Jose is here today for a hospital follow-up/transitional care management visit. TCM Outreach Completed: 04/12/20 CC: Hospital F/U (gi bleed) HPI Patient is a 75 year old male accompanied by his dtr in law who is here today for follow up after hospitalization. Patient hospitalized from 04/08/20- 04/11/20 at [facility] for GI bleed- Hgb 4.8. Required 2 u PRBcs- underwent EGD- + multiple nonbleeding ulcers. Plavix held and now only on ASA. No dark stools noted, + still feels tired/weak. Patient was hospitalized 03/17/20-03/29/20 at [facility]- CHF- underwent CABG x3 - some issues:Intraop difficulty placing saab. Dr. Valverde was present for intraoperative consultation. He performed cystoscopy with serial dilatation of bladder neck contracture. Intraopfindings - pinpoint bladder neck contracture at site of vesicourethral anastomosis (known hx and last treated in 2015). + low BP post op; + anemia- Hgb 6.9 upon d/c- family declined transfusion. Transferred to [facility] rehab on 03/29/20, vasovagal episode - HGb rechecked noted 5.7- transfused 2 u PRBCs, when rechecked 04/08/20 4.8- transferred to [facility]. Since discharge condition is improving. Patient complains today of cough clear sputum- hard to clear. Patient denies chest pain, SOB. Patient also reports right fingers cool, tingling. Noted since last admission to hospital. HH- [facility] in place- SN/PT/OT Allergies Jose has No [...] [facility] ANGIOPLASTY Left 06/28/2018 Surgeon: Compa Beltran; [facility] ANGIOPLASTY Left 12/12/2019 Surgeon: Carlos Wilkins MD; [facility] ARTERIOVENOUS FISTULA CREATION Left 01/14/2018 Surgeon: Compa Beltran; [facility]: [facility] ARTERIOVENOUS FISTULA CREATION Left 2018 [...] [facility] CYSTOSCOPY N/A 03/25/2020 Surgeon: Kegean Valverde MD; Location: [facility] [...] 2012 Both eyes FISTULOGRAM Left 03/15/2018 Surgeon: oCmpa Beltran; Location: [facility] FISTULOGRAM Left 06/28/2018 Surgeon: Compa Beltran; [facility] FISTULOGRAM Left 10/04/2018 Surgeon: Shiv Hough MD; [facility] INTRAOPERATIVE FISTULOGRAM Left 04/04/2019 Surgeon: Ezequiel Cazares MD; [facility]: [facility] PROSTATECTOMY RADICAL RETROPUBIC PROSTATECTOMY N/A 01/08/2015 Surgeon: Robert To; Location: [facility] SPINE [facility]GERY 2001 Lumbar spine surgery TRANSURETHRAL INCISION OF BLADDER NECK 03/26/2015 VASCULAR STENTING Left 06/28/2018 Surgeon: Compa Beltran; Location: [facility] Social History Socioeconomic History Marital [...] file Gets together: Not on file Attends anabaptist service: Not on file Active member of [...] no children 4th grade education 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 Exam conducted with a die barber present. Constitutional: General: He is not in [...] worst- call ABDIAS Coronary artery disease involving marshall coronary artery of marshall heart without angina pectoris-S/PCABG x 3 Comment: acute on chronic Plan: recovering well- continue to not use arms to push self uo- splint chest with cough Educated on expected recovery of leg swelling/bruising For f/u CT surgery next week ESRD (end stage renal disease) Comment: chronic, stable- MWF [facility] [place] Plan: continue with nephrology following FaceToFace Home Health Order I saw patient Jose Combs in the [facility] on 04/17/2020 for the followingmedical conditions and is the primary reason for home health care: ICD-10-CM ICD-9-CM 1. Gastrointestinal hemorrhage associated with gastric ulcer K25.4 531.40 2. Coronary artery disease involving marshall coronary artery of marshall heart without angina dgtliubyK56.10 414.01 3. S/P CABG x 3 Z95.1 V45.81 4. ESRD (end stage renal disease) N18.6 585.6 I certify, based on my findings, that the following services are medically necessary: [facility]: Yes - Vitals/Medication Management Physical therapy: Yes - Evaluate and Treat Occupational therapy: Yes - Evaluate and Treat Speech language pathology: No Certified Home Health Aid: No Home Health Agency Track Inspector: No Jose Combs has the following additional [...] intermittent claudication Dyspnea Coronary artery disease involving marshall coronary artery of marshall heart with angina pectoris ESRD (end stage [...] patient is under the care of the [facility] and that I had a eyfo-gj-pmyw encounter that meets the [facility] vyzl-hk-vmmx requirements with this patient as noted above. Rolling Walker or Rollator: I certify that Jose Combs is under my care and that I had a hgki-sx-zisq encounter with this patient on: 04/17/20 . [...] James APRN, GNP- Geriatrics Internal Medicine [address] [place], [place] [address] documented in this encounter Plan of Treatment Date Type Specialty Care Team Description 04/25/2020 Office Visit Thoracic Surgery Cornel Whitehead MD [address] [place] [address] [phone] 05/08/2020 Office Visit Cardiology William Church MD [address] Floor [place] [address] [phone] 05/27/2020 Office Visit Gastroenterology Kendell Kingston MD [address] [place] [address] [phone] 05/28/2020 Office Visit Geriatric Medicine Loren Christie MD [address] [facility] [address] [place] [phone] Health Maintenance Due Date Last Done [...] of this encounter Implants Implanted Type Area Tobacco Buyer Device Shelf Model / Identifier Expiration Serial / Date Lot Lutonix .035 4mm X 40mm X 75cm 5fr Bard#[id number] - Sn/Mike Turpin n Left: Arm Bard 07/30/2020 [id number] / Implanted: Qty: 1 on 03/15/2018 by Compa Catherine MD at [facility] N/A / [id number] Angio-Seal Evolution Vascular Closure Device [employer] M edical #[id number] - S0 OCCLUSION Right: Terumo 09/20/2018 [id number] / Implanted: Qty: 1 on 08/09/2018 by Phi Perdue Jr., MD at [facility] DEVICE Groin 0 / [id number] Stent, [place] [id number] Viabahn Vasc 120cm Cath #[id number] - S [id number] STENT Left: Arm W L [place] 02/01/2021 [id number] / Implanted: Qty: 1 on 06/28/2018 by Compa Catherine MD at [facility] [id number] / NA documented as of this encounter Results Not on filedocumented in this encounter Visit Diagnoses Diagnosis Gastrointestinal hemorrhage associated w ith gastric ulcer - Primary Coronary artery disease involving marshall coronary artery of marshall heart without angina pectoris S/P CABG x 3 Postsurgical aortocoronary bypass status ESRD (end stage renal disease) End stage renal disease documented in this encounter Insurance Payer Benefit Plan / Subscriber ID Effective Dates Phone Addre ss Type Group MEDICARE MEDICARE PART [id number] 2003-Prese [phone] Medicare A & B [id number] [place] [address] [facility] MEDICAID OF [id number] 2016-Dawson [phone] [address] Medicaid [place] t 0 [id number] [place] [address] documented as of this encounter Advance Directives Type Date Recorded Patient Hand Shaper Explanati on Advance Directives and Living 01/25/2015 10:11 AM Will Power of Computer System Specialist 01/25/2015 10:11 AM
--- OUTSIDE RECORDS SUMMARY | 2020-05-30 21:37 | XMS REPORT | Summary of Care ---
:1945 Author Organization [facility] Address [address] [place] [address] Care Team Providers Name Role Phone Loren Christie MD Unavailable Estephania Dsouza DO Unavailable LEONARDO James Unavailable Pcp-Lab Unavailable Unavailable DEISY Winn Unavailable Edi Christie MD Primary Care Provider Reason for Visit Reason Comments Hospital F/U gi bleed Encounter Details Date Type Department Care Team Description 04/17/2020 Office Visit [facility] Macho James Gastrointestin al hemorrhage associated with gastric ulcer (Primary Dx); [facility] Coronary artery disease involving lower [place] coronary artery of [place] heart without angina pectoris; Primary Care Pavilio n [address] [facility] S/P CABG x 3; 400 [facility], [facility] ESRD (end stage renal disease) [address] [place] [phone] Allergies No Known Allergiesdocumented as of this [...] Cyn gill 03/25/2020 Coronary artery disease involving lower [place] coronary sarah ry of lower [place] heart 03/19/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 ESRD (end stage renal disease) 03/19/2020 Dialysis patient 03/19/2020 Essential hypertension 03/19/2020 Dyspnea 2020 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 05/02/2019 Malfunction of arteriovenous dialysis fistula, initial encounter 03/31/2019 Overview: Added automatically from request for israel peoples [id number] Bilateral carotid artery stenosis 07/27/2018 Overview: Added automatically from request for israel peoples [id number] TIA (transient ischemic attack) 05/29/2018 Dialysis patient 04/18/2018 ESRD (end stage renal disease) 01/03/2018 Overview: Added automatically from request for israel peoples [id number] Diabetic polyneuropathy associated with type 2 diabete [...] HLD (hyperlipidemia) 02/26/2011 Overview: ICD10 Diagnosis Term Roughener Utility Backache 08/05/2006 Overview: Lower back pain - totally disabled ICD10 Diagnosis Term Roughener Utility Hearing loss 08/05/2006 Overview: Both ears ICD10 Diagnosis Term Roughener Utility documented as of this encounter (statuses [...] with No / Unsure 04/17/2020 12:46 PM STEAM AND POWER SUPERINTENDENT someone who was confirmed or suspected to have 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 documented as of this encounter Last Filed Vital Signs Vital Sign Reading Time Taken Comments Blood Pressure 149/69 04/17/2020 1:09 PM STEAM AND POWER SUPERINTENDENT Pulse 87 04/17/2020 1:09 PM STEAM AND POWER SUPERINTENDENT Temperature 35.9 C (96.7 F) 04/17/2020 1:08 PM STEAM AND POWER SUPERINTENDENT Respiratory Rate 18 04/17/2020 1:08 PM STEAM AND POWER SUPERINTENDENT Oxygen Saturation - - Inhaled Oxygen Concentration - - Weight 66.5 kg (146 lb 8 oz) 04/17/2020 1:08 PM STEAM AND POWER SUPERINTENDENT Height 167.6 cm (5' 6") 04/17/2020 1:08 PM STEAM AND POWER SUPERINTENDENT Body Mass Index 23.65 04/17/2020 1:08 PM STEAM AND POWER SUPERINTENDENT documented in this encounter Patient Instructions Patient InstructionsMacho James GNP - 04/17/2020 1:00 PM STEAM AND POWER SUPERINTENDENT Trial of Robitussin or mucinex for cough M AND POWER SUPERINTENDENT documented in this encounter Progress Notes Macho James GNP - 04/17/2020 1:00 PM CST Transitional Care Management: Nljq-xm-Eawh Visit 04/17/2020 Jose Combs is a 75 year old male that was admitted on 04/08/[address] He was discharged on 04/11/20 with a discharge disposition of HR- Routine Discharge. Jose is here today for a hospital follow-up/transitional care management visit. TCM Outreach Completed: 04/12/20 CC: Hospital F/U (gi bleed) HPI Patient is a 75 year old male accompanied by his dtr in law who is here today for follow up after hospitalization. Patient hospitalized from 04/08/20- 04/11/20 at [facility] for GI bleed- Hgb 4.8. Required 2 u PRBcs- underwent EGD- + multiple nonbleeding ulcers. Plavix held and now only on ASA. No dark stools noted, + still feels tired/weak. Patient was hospitalized 03/17/20-03/29/20 at [facility]- CHF- underwent CABG x3 - some issues:Intraop difficulty placing saab. Dr. Valverde was present for intraoperative consultation. He performed cystoscopy with serial dilatation of bladder neck contracture. Intraopfindings - pinpoint bladder neck contracture at site of vesicourethral anastomosis (known hx and last treated in 2015). + low BP post op; + anemia- Hgb 6.9 upon d/c- family declined transfusion. Transferred to [facility] rehab on 03/29/20, vasovagal episode - HGb rechecked noted 5.7- transfused 2 u PRBCs, when rechecked 04/08/20 4.8- transferred to [facility]. Since discharge condition is improving. Patient complains today of cough clear sputum- hard to clear. Patient denies chest pain, SOB. Patient also reports right fingers cool, tingling. Noted since last admission to hospital. 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 Exam conducted with a flying squad salesperson present. Constitutional: General: He is not in [...] worst- call ABDIAS Coronary artery disease involving lower [place] coronary artery of lower [place] heart without angina pectoris-S/PCABG x 3 Comment: acute on chronic Plan: recovering well- continue to not use arms to push self uo- splint chest with cough Educated on expected recovery of leg swelling/bruising For f/u CT surgery next week ESRD (end stage renal disease) Comment: chronic, stable- MWF [facility] [place] Plan: continue with nephrology following FaceToFace Home Health Order I saw patient Jose Combs in the [facility] on 04/17/2020 for the followingmedical conditions and is the primary reason for home health care: ICD-10-CM ICD-9-CM 1. Gastrointestinal hemorrhage associated with gastric ulcer K25.4 531.40 2. Coronary artery disease involving lower [place] coronary artery of lower [place] heart without angina hwprfgtgF39.10 414.01 3. S/P CABG x 3 Z95.1 V45.81 4. ESRD (end stage renal disease) N18.6 585.6 I certify, based on my findings, that the following services are medically necessary: Correction: Yes - Vitals/Medication Management Physical therapy: Yes - Evaluate and Treat Occupational therapy: Yes - Evaluate and Treat Speech language pathology: No Certified Home Health Aid: No Home Health Agency Project Geophysicist: No Jose Combs has the following additional [...] intermittent claudication Dyspnea Coronary artery disease involving lower [place] coronary artery of [place] heart with angina pectoris ESRD (end stage [...] patient is under the care of the [facility] and that I had a iqib-tz-hhwy encounter that meets the [facility] xtzn-ue-lckg requirements with this patient as noted above. Rolling Walker or Rollator: I certify that Jose Combs is under my care and that I had a vwyt-gg-wfwz encounter with this patient on: 04/17/20 . [...] Geriatrics Internal Medicine [address] [place], [place] [address] documented in this encounter Plan of Treatment Date Type Specialty Care Team Description 04/25/2020 Office Visit Thoracic Surgery Cronel Whitehead MD [address] [place] [address] [phone] 05/08/2020 Office Visit Cardiology William Church MD [address] [place] [address] [phone] 05/27/2020 Office Visit Gastroenterology Kendell Kingston MD [address] [place] [address] [phone] 05/28/2020 Office Visit Geriatric Medicine Loren Christie MD [address] [facility] [address] [place] [phone] Health Maintenance Due Date Last Done [...] of this encounter Implants Implanted Type Area Manager Intensive Care Device Shelf Model / Identifier Expiration Serial / Date Lot Lutonix .035 4mm X 40mm X 75cm 5fr Bard#[id number] - Sn/Mike Turpin n Left: Arm Bard 07/30/2020 [id number] / Implanted: Qty: 1 on 03/15/2018 by Compa Catherine MD at [facility] N/A / [id number] Angio-Seal Evolution Vascular Closure Device [employer] Ig[employer] M edical #[id number] - S0 OCCLUSION Right: Terumo 09/20/2018 [id number] / Implanted: Qty: 1 on 08/09/2018 by Phi Perdue Jr., MD at [facility] DEVICE Groin 0 / [id number] Stent, [place] [id number] Viabahn Vasc 120cm Cath #[id number] - S [id number] STENT Left: Arm W L [place] 02/01/2021 [id number] / Implanted: Qty: 1 on 06/28/2018 by Compa Catherine MD at [facility] [id number] / NA documented as of this encounter Results Not on filedocumented in this encounter Visit Diagnoses Diagnosis Gastrointestinal hemorrhage associated w ith gastric ulcer - Primary Coronary artery disease involving lower [place] coronary artery of lower [place] heart without angina pectoris S/P CABG x 3 Postsurgical aortocoronary bypass status ESRD (end stage renal disease) End stage renal disease documented in this encounter Insurance Payer Benefit Plan / Subscriber ID Effective Dates Phone Addre ss Type Group MEDICARE MEDICARE PART [id number] 2003-Prese [phone] [address] Medicare A & B 2 [id number] [place] [address] [facility] MEDICAID OF [id number] 2016-Dawson [phone] [address] Medicaid [place] t 0 [id number] [place] [address] documented as of this encounter Advance Directives Type Date Recorded Patient External Relations Director Explanati on Advance Directives and Living 01/25/2015 10:11 AM Will Power of Police Surgeon 01/25/2015 10:11 AM
--- OUTSIDE RECORDS SUMMARY | 2020-05-30 21:38 | XMS REPORT | Summary of Care ---
:1945 Author Organization [facility] Address [address] [place] [address] Care Team Providers Name Role Phone Loren Christie MD Unavailable Estephania Dsouza DO Unavailable LEONARDO James Unavailable Pcp-Lab Unavailable Unavailable DEISY Winn Unavailable Edi Christie MD Primary Care Provider Encounter Details Date Type Department Care Team Description 04/23/2020 Patient Secure [facility] Macho James, Coronary artery Geriatrics- [place] GNP disease involving Primary Care Pavilio n [address] [place] coronary [address], [id number] artery of [place] [address] [place], [place] [address] pectoris (Primary Dx) [phone] Allergies No Known Allergiesdocumented as of this [...] Cyn gill 03/25/2020 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 ESRD (end stage renal disease) 03/19/2020 Dialysis patient 03/19/2020 Essential hypertension 03/19/2020 Dyspnea 2020 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 05/02/2019 Malfunction of arteriovenous dialysis fistula, initial encounter 03/31/2019 Overview: Added automatically from request for israel shelton [id number] Bilateral carotid artery stenosis 07/27/2018 Overview: Added automatically from request for israel peoples [id number] TIA (transient ischemic attack) 05/29/2018 Dialysis patient 04/18/2018 ESRD (end stage renal disease) 01/03/2018 Overview: Added automatically from request for israel peoples [id number] Diabetic polyneuropathy associated with type 2 diabete s mellitus 06/13/2015 Cancer of prostate with intermediate recurrence risk ( stage T2b-c or 11/13/2014 [place] 7 or PSA 10-20) Undiagnosed cardiac murmurs 01/05/2013 Diabetes mellitus due to underlying condition, control led, with chronic 02/26/2011 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 Essential hypertension, benign 02/26/2011 HLD (hyperlipidemia) 02/26/2011 Overview: ICD10 Diagnosis Term Motor Route Carrier Utility Backache 08/05/2006 Overview: Lower back pain - totally disabled ICD10 Diagnosis Term Motor Route Carrier Utility Hearing loss 08/05/2006 Overview: Both ears ICD10 Diagnosis Term Motor Route Carrier Utility documented as of this encounter (statuses [...] with No / Unsure 04/17/2020 12:46 PM REAL ESTATE ADMINISTRATIVE ASSISTANT someone who was confirmed or suspected to have 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 documented as of this encounter Last Filed Vital Signs Not on filedocumented in this encounter Plan of Treatment Date Type Specialty Care Team Description 04/25/2020 Office Visit Thoracic Surgery Cornel Whitehead MD [address] [place] [address] [phone] 05/08/2020 Office Visit Cardiology William Church MD [address] 6th Floor [place] [address] [phone] 05/27/2020 Office Visit Gastroenterology Kendell Kingston MD [address] [place] [address] [phone] 05/28/2020 Office Visit Geriatric Medicine Loren Christie MD [address] [place] [address] [address] [place], [place] [address] Health Maintenance Due Date [...] of this encounter Implants Implanted Type Area Plaster Foreman Device Shelf Model / Identifier Expiration Serial / Date Lot Kiki Guillaume 4mm X 40mm X 75cm 5fr Bard#[id number] - Sn/A Balloo n Left: Arm Bard 07/30/2020 [id number] / Implanted: Qty: 1 on 03/15/2018 by Compa Catherine MD at [facility] N/A / [id number] Angio-Seal Evolution Vascular Closure Device [place] M edical #[id number] - S0 OCCLUSION Right: Terumo 09/20/2018 [id number] / Implanted: Qty: 1 on 08/09/2018 by Phi Perdue Jr., MD at [facility] DEVICE Groin 0 / [id number] Stent, Edna [id number] Viabahn Vasc 120cm Cath #[id number] - S [id number] STENT Left: Arm W L Edna 02/01/2021 [id number] / Implanted: Qty: 1 on 06/28/2018 by Compa Catherine MD at [facility] [id number] / NA documented as of this encounter Results Not on filedocumented in this encounter Visit Diagnoses Diagnosis Coronary artery disease involving [place] coronary artery of [place] heart without angina pectoris - Primary documented in this encounter Insurance Payer Benefit Plan / Subscriber ID Effective Dates Phone Addre ss Type Group MEDICARE MEDICARE PART [id number] 2003-Prese [phone] [address] Medicare A & B 2 [id number] [place] [address] [facility] MEDICAID OF [id number] 2016-Presen [phone] [address] Medicaid [facility] 0 [id number] [place] [address] MEDICARE MEDICARE PART [id number] 2003-Prese [phone] [address] Medicare A & B nt 2 [id number] [place] [address] documented as of this encounter Advance Directives Type Date Recorded Patient Miller Head Wet Process Explanati on Advance Directives and Living 01/25/2015 10:11 AM Will Power of Solar Installation Technician 01/25/2015 10:11 AM
--- OUTSIDE RECORDS SUMMARY | 2020-05-30 21:38 | XMS REPORT | Summary of Care ---
:[address] [facility] Address [address] [place] [address] Care Team Providers Name Role Phone Loren Christie MD Unavailable Estephania Dsouza DO Unavailable LEONARDO James Unavailable Pcp-Lab Unavailable Unavailable DEISY Winn Unavailable Edi Christie MD Primary Care Provider Encounter Details Date Type Department Care Team Description 04/23/2020 Patient Secure [facility] Macho James, Coronary artery Geriatrics- [place] GNP disease involving Primary Care Pavilio n [address] [place] coronary [address], [id number] artery of [place] [address] [place], [place] [address] pectoris (Primary Dx) [phone] Allergies No Known [...] Cyn gill 03/25/2020 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 ESRD (end stage renal disease) 03/19/2020 Dialysis patient 03/19/2020 Essential hypertension 03/19/2020 Dyspnea 2020 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 05/02/2019 Malfunction of arteriovenous dialysis fistula, initial encounter 03/31/2019 Overview: Added automatically from request for israel shelton [id number] Bilateral carotid artery stenosis 07/27/2018 Overview: Added automatically from request for israel peoples [id number] TIA (transient ischemic attack) 05/29/2018 Dialysis patient 04/18/2018 ESRD (end stage renal disease) 01/03/2018 Overview: Added automatically from request for israel peoples [id number] Diabetic polyneuropathy associated with type 2 diabete s mellitus 06/13/2015 Cancer of prostate with intermediate recurrence risk ( stage T2b-c or 11/13/2014 [place] 7 or PSA 10-20) Undiagnosed cardiac murmurs 01/05/2013 Diabetes mellitus due to underlying condition, control led, with chronic 02/26/2011 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 Essential hypertension, benign 02/26/2011 HLD (hyperlipidemia) 02/26/2011 Overview: ICD10 Diagnosis Term Environmental Inspector Utility Backache 08/05/2006 Overview: Lower back pain - totally disabled ICD10 Diagnosis Term Environmental Inspector Utility Hearing loss 08/05/2006 Overview: Both ears ICD10 Diagnosis Term Environmental Inspector Utility documented as of this encounter (statuses [...] with No / Unsure 04/17/2020 12:46 PM EVENT SECURITY OFFICER someone who was confirmed or suspected to have 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 documented as of this encounter Last Filed Vital Signs Not on filedocumented in this encounter Plan of Treatment Date Type Specialty Care Team Description 04/25/2020 Office Visit Thoracic Surgery Cornel Whitehead MD [address] [place] [address] [phone] 05/08/2020 Office Visit Cardiology William Church MD [address] 6th Floor [place] [address] [phone] 05/27/2020 Office Visit Gastroenterology Kendell Kingston MD [address] [place] [address] [phone] 05/28/2020 Office Visit Geriatric Medicine Loren Christie MD [address] [place] [address] [address] [place], [place] [address] Health Maintenance Due Date [...] of this encounter Implants Implanted Type Area Fee Clerk Device Shelf Model / Identifier Expiration Serial / Date Lot Kiki Guillaume 4mm X 40mm X 75cm 5fr Bard#[id number] - Sn/A Balloo n Left: Arm Bard 07/30/2020 [id number] / Implanted: Qty: 1 on 03/15/2018 by Compa Cahterine MD at [facility] N/A / [id number] Angio-Seal Evolution Vascular Closure Device St Iglesia M edical #[id number] - S0 OCCLUSION Right: Terumo 09/20/2018 [id number] / Implanted: Qty: 1 on 08/09/2018 by Phi Perdue Jr., MD at [facility] DEVICE Groin 0 / [id number] Stent, [place] [id number] Viabahn Vasc 120cm Cath #[id number] - S [id number] STENT Left: Arm W L [place] 02/01/2021 [id number] / Implanted: Qty: 1 on 06/28/2018 by Compa Catherine MD at [facility] [id number] / NA documented as of this encounter Results Not on filedocumented in this encounter Visit Diagnoses Diagnosis Coronary artery disease involving [place] coronary artery of [place] heart without angina pectoris - Primary documented in this encounter Insurance Payer Benefit Plan / Subscriber ID Effective Dates Phone Addre ss Type Group MEDICARE MEDICARE PART [id number] 2003-Prese [phone] [address] Medicare A & B 2 [id number] [place] [address] [facility] MEDICAID OF [id number] 2016-Presen [phone] [address] Medicaid [facility] 0 [id number] [place] [address] MEDICARE MEDICARE PART [id number] 2003-Prese [phone] [address] Medicare A & B nt 2 [id number] [place] [address] documented as of this encounter Advance Directives Type Date Recorded Patient Offset Printer Explanati on Advance Directives and Living 01/25/2015 10:11 AM Will Power of Immersion Metalcleaner 01/25/2015 10:11 AM
--- OUTSIDE RECORDS SUMMARY | 2020-05-30 21:39 | XMS REPORT | Summary of Care ---
:1945 Author Organization [facility] Address [address] [place] [address] Care Team Providers Name Role Phone Loren Christie MD Unavailable Estephania Dsouza DO Unavailable ELONARDO Jamse Unavailable Pcp-Lab Unavailable Unavailable DEISY Winn Unavailable Edi Christie MD Primary Care Provider Encounter Details Date Type Department Care Team Description 04/23/2020 Patient Secure [facility] Macho James, Coronary artery Geriatrics- [place] GNP disease involving Primary Care Pavilio n [address] [place] coronary [address], [id number] artery of [place] [address] [place], [place] [address] pectoris (Primary Dx) [phone] Allergies No Known [...] Cyn gill 03/25/2020 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 ESRD (end stage renal disease) 03/19/2020 Dialysis patient 03/19/2020 Essential hypertension 03/19/2020 Dyspnea 2020 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 05/02/2019 Malfunction of arteriovenous dialysis fistula, initial encounter 03/31/2019 Overview: Added automatically from request for israel shelton [id number] Bilateral carotid artery stenosis 07/27/2018 Overview: Added automatically from request for israel peoples [id number] TIA (transient ischemic attack) 05/29/2018 Dialysis patient 04/18/2018 ESRD (end stage renal disease) 01/03/2018 Overview: Added automatically from request for israel peoples [id number] Diabetic polyneuropathy associated with type 2 diabete s mellitus 06/13/2015 Cancer of prostate with intermediate recurrence risk ( stage T2b-c or 11/13/2014 [place] 7 or PSA 10-20) Undiagnosed cardiac murmurs 01/05/2013 Diabetes mellitus due to underlying condition, control led, with chronic 02/26/2011 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 Essential hypertension, benign 02/26/2011 HLD (hyperlipidemia) 02/26/2011 Overview: ICD10 Diagnosis Term Email Engineer Utility Backache 08/05/2006 Overview: Lower back pain - totally disabled ICD10 Diagnosis Term Email Engineer Utility Hearing loss 08/05/2006 Overview: Both ears ICD10 Diagnosis Term Email Engineer Utility documented as of this encounter [...] with No / Unsure 04/17/2020 12:46 PM HOSPICE CARE SALES CONSULTANT someone who was confirmed or suspected to have 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 documented as of this encounter Last Filed Vital Signs Not on filedocumented in this encounter Plan of Treatment Date Type Specialty Care Team Description 04/25/2020 Office Visit Thoracic Surgery Cornel Whitehead MD [address] [place] [address] [phone] 05/08/2020 Office Visit Cardiology William Church MD [address] 6th Floor [place] [address] [phone] 05/27/2020 Office Visit Gastroenterology Kendell Kingston MD [address] [place] [address] [phone] 05/28/2020 Office Visit Geriatric Medicine Loren Christie MD [address] [place] [address] [address] [place], [place] [address] Health Maintenance Due Date [...] of this encounter Implants Implanted Type Area Sample Carrier Device Shelf Model / Identifier Expiration Serial / Date Lot Kiki Royal035 4mm X 40mm X 75cm 5fr Bard#[id number] - Sn/A Balloo n Left: Arm Bard 07/30/2020 [id number] / Implanted: Qty: 1 on 03/15/2018 by Compa Catherine MD at [facility] N/A / [id number] Angio-Seal Evolution Vascular Closure Device St Iglesia M edical #[id number] - S0 OCCLUSION Right: Terumo 09/20/2018 [id number] / Implanted: Qty: 1 on 08/09/2018 by Phi Perdue Jr., MD at [facility] DEVICE Groin 0 / [id number] Stent, [place] [id number] Viabahn Vasc 120cm Cath #[id number] - S [id number] STENT Left: Arm W L [place] 02/01/2021 [id number] / Implanted: Qty: 1 on 06/28/2018 by Compa Catherine MD at [facility] [id number] / NA documented as of this encounter Results Not on filedocumented in this encounter Visit Diagnoses Diagnosis Coronary artery disease involving [place] coronary artery of [place] heart without angina pectoris - Primary documented in this encounter Insurance Payer Benefit Plan / Subscriber ID Effective Dates Phone Addre ss Type Group MEDICARE MEDICARE PART [id number] 2003-[place] [phone] [address] Medicare A & B 2 [id number] [place] [address] [facility] MEDICAID OF [id number] 2016-[place] [phone] [address] Medicaid [place] t 0 [id number] [place] [address] documented as of this encounter Advance Directives Type Date Recorded Patient Testing And Regulating Chief Explanati on Advance Directives and Living 01/25/2015 10:11 AM Will Power of Host Coordinator 01/25/2015 10:11 AM
--- OUTSIDE RECORDS SUMMARY | 2020-05-30 21:39 | XMS REPORT | Summary of Care ---
:1945 Author Organization [facility] Address [address] [place] [address] Care Team Providers Name Role Phone Loren Christie MD Unavailable Estephania Dsouza DO Unavailable LEONARDO James Unavailable Pcp-Lab Unavailable Unavailable DEISY Winn Unavailable Edi Christie MD Primary Care Provider Encounter Details Date Type Department Care Team Description 04/23/[address] 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 ESRD (end stage renal disease) 03/19/2020 Dialysis patient 03/19/2020 Essential hypertension 03/19/2020 Dyspnea 2020 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 05/02/2019 Malfunction of arteriovenous dialysis fistula, initial encounter 03/31/2019 Overview: Added automatically from request for israel shelton [id number] Bilateral carotid artery stenosis 07/27/2018 Overview: Added automatically from request for israel peoples [id number] TIA (transient ischemic attack) 05/29/2018 Dialysis patient 04/18/2018 ESRD (end stage renal disease) 01/03/2018 Overview: Added automatically from request for israel peoples [id number] Diabetic polyneuropathy associated with type 2 diabete s mellitus 06/13/2015 Cancer of prostate with intermediate recurrence risk ( stage T2b-c or 11/13/2014 [place] 7 or PSA 10-20) Undiagnosed cardiac murmurs 01/05/2013 Diabetes mellitus due to underlying condition, control led, with chronic 02/26/2011 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 Essential hypertension, benign 02/26/2011 HLD (hyperlipidemia) 02/26/2011 Overview: ICD10 Diagnosis Term Refueling Rampman Utility Backache 08/05/2006 Overview: Lower back pain - totally disabled ICD10 Diagnosis Term Refueling Rampman Utility Hearing loss 08/05/2006 Overview: Both ears ICD10 Diagnosis Term Refueling Rampman Utility documented as of this encounter (statuses [...] with No / Unsure 04/17/2020 12:46 PM FAMILY SERVICES WORKER someone who was confirmed or suspected to have 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 documented as of this encounter Last Filed Vital Signs Not on filedocumented in this encounter Plan of Treatment Date Type Specialty Care Team Description 04/25/2020 Office Visit Thoracic Surgery Cornel Whitehead MD [address] [place] [address] [phone] 05/08/2020 Office Visit Cardiology William Church MD [address] 6th Floor [place] [address] [phone] 05/27/2020 Office Visit Gastroenterology Kendell Kingston MD [address] [place] [address] [phone] 05/28/2020 Office Visit Geriatric Medicine Loren Christie MD [address] [place] [address] [address] [place], [place] [address] Health Maintenance Due Date [...] of this encounter Implants Implanted Type Area Emblem Fuser Tender Device Shelf Model / Identifier Expiration Serial / Date Lot Kiki Guillaume 4mm X 40mm X 75cm 5fr Bard#[id number] - Sn/A Balloo n Left: Arm Bard 07/30/2020 [id number] / Implanted: Qty: 1 on 03/15/2018 by Compa Catherine MD at [facility] N/A / [id number] Angio-Seal Evolution Vascular Closure Device St Iglesia M edical #[id number] - S0 OCCLUSION Right: Terumo 09/20/2018 [id number] / Implanted: Qty: 1 on 08/09/2018 by Phi Perdue Jr., MD at [facility] DEVICE Groin 0 / [id number] Stent, [place] [id number] Viabahn Vasc 120cm Cath #[id number] - S [id number] STENT Left: Arm W L [place] 02/01/2021 [id number] / Implanted: Qty: 1 on 06/28/2018 by Compa Catherine MD at [facility] [id number] / NA documented as of this encounter Results Not on filedocumented in this encounter Visit Diagnoses Diagnosis Coronary artery disease involving [place] coronary artery of [place] heart without angina pectoris - Primary documented in this encounter Insurance Payer Benefit Plan / Subscriber ID Effective Dates Phone Addre ss Type Group MEDICARE MEDICARE PART [id number] 2003-Prese [phone] [address] Medicare A & B 2 [id number] [place] [address] [facility] MEDICAID OF [id number] 2016-Presen [phone] [address] Medicaid [facility] 0 [id number] [place] [address] MEDICARE MEDICARE PART [id number] 2003-Prese [phone] [address] Medicare A & B nt 2 [id number] [place] [address] documented as of this encounter Advance Directives Type Date Recorded Patient Men'S Garment Fitter Explanati on Advance Directives and Living 01/25/2015 10:11 AM Will Power of Water Fitness Instructor 01/25/2015 10:11 AM
--- OUTSIDE RECORDS SUMMARY | 2020-05-30 21:39 | XMS REPORT | Summary of Care ---
:1945 [address] [facility] Address [address] [place] [address] Care Team Providers Name Role Phone Loren Christie MD Unavailable Estephania Dsouza DO Unavailable LEONARDO James Unavailable Pcp-Lab Unavailable Unavailable DEISY Winn Unavailable Edi Christie MD Primary Care Provider Reason for Visit Reason Comments Follow-up Encounter Details Date Type Department Care Team Description 04/25/2020 Office Visit [facility] Cornel Whitehead MD Postop check (Primary Dx); Cardiothoracic [address] [place] [address] [address] S/P CABG x 2 (free MATA-LAD, 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;Dr Whitehead [facility] [address] [place] [address], [facility] [facility] [place] [address] Allergies No Known Allergiesdocumented as of this encounter (statuses as of 04/26/2020) Medications Medication Sig Dispensed Refills Start Date [...] as of this encounter (statuses as of 04/26/2020) Active Problems Problem Noted Date Upper GI bleed 04/08/2020 Heart failure 03/29/2020 S/P CABG x 2 (free MATA-LAD, 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;Dr Cyn gill 03/25/2020 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 ESRD (end stage renal disease) 03/19/2020 Dialysis patient 03/19/2020 Essential hypertension 03/19/2020 Dyspnea 2020 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 05/02/2019 Malfunction of arteriovenous dialysis fistula, initial encounter 03/31/2019 Overview: Added automatically from request for [place] peoples [id number] Bilateral carotid artery stenosis 07/27/2018 Overview: Added automatically from request for [place] peoples [id number] TIA (transient ischemic attack) 05/29/2018 Dialysis patient 04/18/2018 ESRD (end stage renal disease) 01/03/2018 Overview: Added automatically from request for [place] peoples [id number] Diabetic polyneuropathy associated with type 2 diabete [...] HLD (hyperlipidemia) 02/26/2011 Overview: ICD10 Diagnosis Term Cad Application Support Specialist Utility Backache 08/05/2006 Overview: Lower back pain - totally disabled ICD10 Diagnosis Term Cad Application Support Specialist Utility Hearing loss 08/05/2006 Overview: Both ears ICD10 Diagnosis Term Cad Application Support Specialist Utility documented as of this encounter (statuses as of 04/26/2020) Resolved Problems Problem Noted Date Resolved Date CKD (chronic kidney disease) stage 4, GFR 15-29 ml/min 06/0304/29/2018 Need for vaccination 03/30/2017 04/29/2018 Uncontrolled type 2 diabetes mellitus with stage 4 chronic 1 04/29/2018 kidney disease, with long-term current use of insulin Type 2 diabetes mellitus with diabetic chronic kidney 201403/17/2016 disease documented as of this encounter (statuses as of 04/26/2020) Immunizations Name Administration Dates Next Due Influenza [...] with No / Unsure 04/17/2020 12:46 PM SUPERVISOR PLASTICS someone who was confirmed or suspected to have 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 documented as of this encounter Last Filed Vital Signs Vital Sign Reading Time Taken Comments Blood Pressure 166/76 04/25/2020 2:25 PM SUPERVISOR [employer] Pulse 84 04/25/2020 2:25 PM SUPERVISOR P[employer]ICS Temperature 36.3 C (97.4 F) 04/25/2020 2:20 PM SUPERVISOR PLASTICS Respiratory Rate 20 04/25/2020 2:20 PM SUPERVISOR PLASTICS Oxygen Saturation - - Inhaled Oxygen Concentration - - Weight 64.9 kg (143 lb) 04/25/2020 2:20 PM SUPERVISOR [employer] Height 167.6 cm (5' 6") 04/25/2020 2:20 PM SUPERVISOR PLASTICS Body Mass Index 23.08 04/25/2020 2:20 PM SUPERVISOR PLASTICS documented in this encounter Patient Instructions Patient InstructionsLeidy Cherry FNP - 04/25/2020 2:30 PM CSTSternal precautions to continue for a total of 6 weeks from date of surgery Discontinue sternal precautions 05/09/2020 No lifting, pulling or reaching with arms for a total of 6 weeks from date of surgery. Discontinue on 05/09/2020 Cardiac rehab referral placed Start [id number] Zyrtec for the cough and nasal drip. Call me if you have any questions or concerns. Leidy Cherry, Nurse Practitioner Office: [phone] Patient Education Cardiac Rehabilitation: Following an Exercise Program A big part of a cardiac rehab program is exercise. Regular exercise will make your heart and coronary arteries healthier. It helps increase strength, lower blood pressure, relieve stress, and control your weight. Cardiac rehab lowers the risk for future hospital stays and worsening heart problems. A supervised program Your cardiac rehab exercise program may start right in the hospital. Your healthcare provider and a cardiac homemaking rehabilitation consultant will explain how it works. At first, the goal is to regain basic strength. You will start with light exercise, such as walking down the hospital paul. After you leave the hospital, you may continue supervised exercise at a medical center or other facility. There, exercises willbe prescribed to help you build strength, flexibility, and endurance. This program will be designed to help you function on your own and build your heart's strength. Continuing at home After you finish your supervised program, don't give up exercising. Keep exercising at the medical center, at home, or at a fitness center. By sticking with a program of exercise, youll lower your risk for future heart attack, (acute myocardial infarction, or AMI) and stroke. And youll feel and look better, too. To make exercise more fun, invite your family and friends to join you. Being activehas benefits for everyone. Aerobic exercise Aerobic exercise helps your heart and other muscles better use oxygen. Many cardiac rehab programs use walking on a treadmill as a basic form of aerobic exercise. Some programs also use equipment, suchas stationary bikes, recumbent cross-trainers that are low impact on joints, arm cranks, and light weights. You will be shown how to use them to get the most benefit. In most programs, your heart rate and blood pressure will be monitored while you exercise. When to call your healthcare provider Stop exercising and call your provider if you feel any of these symptoms: Chest pain or discomfort Burning, tightness, heaviness, or pressure in your chest Unusual aching in your arm, shoulders, neck, jaw, or back Trouble catching your breath Racing or skipping heart Extreme fatigue (especially after exercise) Lightheadedness, dizziness, or nausea Abine last reviewed this educational content on 10/22/201819999455-1373 The [employer]. All rights reserved. This information is not intended as a substitute for professional medical care. Always follow your healthcare professional's instructions. Patient Education Exercise After Bypass Surgery: Start Slowly Increase your exercise slowly You may feel weak and tire easily at first. You may also be a bit stiff. Start slowly and build up your time and speed little by little as the days progress. After the first week, exercise 4 times a day for 7 to 8 minutes each time. Each week, add 1 to 2 minutes to each session. As you add minutes to each session, cut down on the number of times you exercise in a day. Just be sure you exercise for a total of 25 to 30 minutes. Slowly build up to 25 to 30 minutes once a day. Exercise 5 days a week. You can take 2 days off each weekbut not 2 days in a row. Exercise either before or at least 1 hour after a meal. Learn to take your pulse during exercise. If it becomes too fast, stop and rest. If your pulse rate stays high even at rest, call for help. Rest after you exercise. And drink plenty of water, unless your healthcare provider has told you to limit how much fluid you drink. Stop and rest if you have dizziness, feel faint, or have shortness of breath or chest pain. Rest for 20 minutes. If these symptoms don't go away after resting, seek medical attention right away. Your healthcare team may recommend cardiac rehabilitation to help you recover from your heart surgery. You will be monitored while you exercise. You will also learn how best to continue your recovery and improve your heart health. You may be able to do home-based cardiac rehab if you can't go to rehab at a health facility. Askyour provider if this is an option for you. [employer] last reviewed this educational content on 08/23/201919991691-3750 The [employer]. All rights reserved. This information is not intended as a substitute for professional medical care. Always follow your healthcare professional's instructions. [employer] documented in this encounter Progress Notes Leidy Cherry FNP - 04/25/2020 2:30 PM CST POST OPERATIVE NOTE Surgery Date: 03/25/2020 Type of Surgical Procedure Performed: CABG x 2 - free MATA to LAD and SVG to OM General status: charisma Combs is a 75 year old male 4 weeks post above procedure. He also had GI bleed post surgerywhile at rehab and was readmitted, scoped and found to have 4 ulcers with no stigmata of bleeding. Decision was made to hold Plavix at discharge to allow ulcers to heal. Patient has had no further episodes of bleeding and last Hgb noted to be 8.7 at dialysis center. Patient is alert and oriented. Reports pain is controlled and he is feeling generally well.Is active inside home. Denies chest pain, SOB, clicking noise in breast bone, drainage/erythema from incision, SWEET, orthopnea, and lower extremity edema. Patient is here with his son as additional historian and his zvnjqccg-ed-aiz was on viaspeaker phone. The only concern is cough since surgery. Coughing occurs throughout day, clear production. "Feels like its in my throat only." Also complains of clear nasal drainage. He had follow up with primary PCP and recommendations to try robitussin OTC, with no relief. MEDICATIONS Current Outpatient Medications Medication Sig Dispense Refill atorvastatin 80 mg [...] 3 (three) times daily with meals. No current facility-administered medications for this visit. I have reviewed the patient's medications; see Medication Reconciliation. REVIEW OF SYSTEMS See General Status above PHYSICAL EXAM BP (!) 166/76 (BP Location: Right arm, Patient Position: Sitting, BP CUFF SIZE: Adult Medium) | Pulse 84 | Temp 36.3 C (97.4 F) (Oral) | Resp 20 | Ht 1.676 m (5' 6") | Wt 64.9 kg (143 lb) | BMI 23.08 kg/m General: Patient is alert and oriented [...] SVG leg wound clean, dry, and intact. Some ecchymosis along track line and appropriate at this post op state. LABORATORY No new labs. RADIOLOGY No new Radiology ASSESSMENT - S/P CABG x 2 - free MATA to LAD and SVG to OM 03/25/2020 - Progressing as expected - Sternum stable - No chest pain, SOB, SWEET - Upper GIB post surgery - multiple transfusion - EGD showed 4 ulcers with no stigmata of bleeding - No further episodes of bleeding - Reports recent Hgb 8.7 at dialysis center - Compliant with Protonix and Pepcid - Plavix remains on hold and on ASA 81 mg PO daily - Cough and post nasal drip - clear productive cough, constant throughout day PLAN Return to [place] surgery clinic PRN Recommend starting outpatient cardiac rehab when no longer home bound Follow-up with Cardiology as scheduled Discontinue sternal precautions on 05/09/2020 - no further sternal precautions Recommend starting zyrtec OTC as directed for cough and post nasal drip - Seen with Dr. Ventura Cherry, ENVIRONMENTAL COMPLIANCE MANAGER-C Cardiovascular Surgery [employer] documented in this encounter Plan of Treatment Date Type Specialty Care Team Description 05/08/2020 Office Visit Cardiology William Church MD [address] [place] [address] [phone] 05/27/2020 Office Visit Gastroenterology Kendell Kingston MD [address] [place] [address] [phone] 05/28/2020 Office Visit Geriatric Medicine Loren Christie MD [address] [place] [address] [address] [place] [address] Health Maintenance Due Date Last Done [...] of this encounter Implants Implanted Type Area Android Architect Device Shelf Model / Identifier Expiration Serial / Date Lot Lutonix .035 4mm X 40mm X 75cm 5fr [id number] - Sn/A Balloo n Left: Arm Bard 07/30/2020 [id number] / Implanted: Qty: 1 on 03/15/2018 by Compa Catherine MD at [facility] N/A / [id number] Angio-Seal Evolution Vascular Closure Device [place] M edical #[id number] - S0 OCCLUSION Right: Terumo 09/20/2018 [id number] / Implanted: Qty: 1 on 08/09/2018 by Phi Perdue Jr., MD at [facility] DEVICE Groin 0 / [id number] Stent, [place] [id number] Viabahn Vasc 120cm Cath #[id number] - S [id number] STENT Left: Arm W L [place] 02/01/2021 [id number] / Implanted: Qty: 1 on 06/28/2018 by Compa Catherine MD at [facility] [id number] / NA documented as of this encounter Results Not on filedocumented in this encounter Visit Diagnoses Diagnosis Postop check - Primary Follow-up examination, following unspeci fied surgery S/P CABG x 2 (free MATA-LAD, 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;Dr Whitehead Postsurgical aortocoronary bypass status documented in this encounter Insurance Payer Benefit Plan / Subscriber ID Effective Dates Phone Addre ss Type Group MEDICARE MEDICARE PART [id number] 2003-Prese [phone] Medicare A & B [place] 2 [id number] [place] [address] [facility] MEDICAID OF [id number] 2016-Presen [phone] [address] [place] [address] [id number] [place] [address] documented as of this encounter Advance Directives Type Date Recorded Patient Ground Crewman Mission Support Explanati on Advance Directives and Living 01/25/2015 10:11 AM Will Power of Supervisor Plastics 01/25/2015 10:11 AM
--- OUTSIDE RECORDS SUMMARY | 2020-05-30 21:40 | XMS REPORT | Summary of Care ---
:1945 Author Organization [facility] - Health Address [address] [place] [address] Care Team Providers Name Role Phone Loren Christie MD Unavailable Estephania Dsouza DO Unavailable LEONARDO James Unavailable Pcp-Lab Unavailable Unavailable DEISY Winn Unavailable Eid Christie MD Primary Care Provider Encounter Details Date Type Department Care Team Description 04/13/2020 Orders Only [facility] Doctor Unassigned, No [address] [facility] [place] [address] [address] [place] [address] Allergies No Known Allergiesdocumented as of this encounter (statuses as of 04/30/2020) Medications Medication Sig Dispensed Refills Start Date [...] as of this encounter (statuses as of 04/30/2020) Active Problems Problem Noted Date Upper GI bleed 04/08/2020 Heart failure 03/29/2020 S/P CABG x 2 (free MATA-LAD, 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;Dr Cyn gill 03/25/2020 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 ESRD (end stage renal disease) 03/19/2020 Dialysis patient 03/19/2020 Essential hypertension 03/19/2020 Dyspnea 2020 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 05/02/2019 Malfunction of arteriovenous dialysis fistula, initial encounter 03/31/2019 Overview: Added automatically from request for [place] peoples [id number] Bilateral carotid artery stenosis 07/27/2018 Overview: Added automatically from request for [place] peoples [id number] TIA (transient ischemic attack) 05/29/2018 Dialysis patient 04/18/2018 ESRD (end stage renal disease) 01/03/2018 Overview: Added automatically from request for [place] peoples [id number] Diabetic polyneuropathy associated with type 2 diabete [...] HLD (hyperlipidemia) 02/26/2011 Overview: ICD10 Diagnosis Term Advanced Practice Nurse Utility Backache 08/05/2006 Overview: Lower back pain - totally disabled ICD10 Diagnosis Term Advanced Practice Nurse Utility Hearing loss 08/05/2006 Overview: Both ears ICD10 Diagnosis Term Advanced Practice Nurse Utility documented as of this encounter (statuses as of 04/30/2020) Resolved Problems Problem Noted Date Resolved Date CKD (chronic kidney disease) stage 4, GFR 15-29 ml/min 06/0304/29/2018 Need for vaccination 03/30/2017 04/29/2018 Uncontrolled type 2 diabetes mellitus with stage 4 chronic 1 04/29/2018 kidney disease, with long-term current use of insulin Type 2 diabetes mellitus with diabetic chronic kidney 201403/17/2016 disease documented as of this encounter (statuses as of 04/30/2020) Immunizations Name Administration Dates Next Due Influenza [...] with No / Unsure 04/17/2020 12:46 PM INTERNATIONAL SPECIALIST someone who was confirmed or suspected to have 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 documented as of this encounter Last Filed Vital Signs Not on filedocumented in this encounter Plan of Treatment Date Type Specialty Care Team Description 05/08/2020 Office Visit Cardiology William Church MD [address] [place] [address] [phone] 05/27/2020 Office Visit Gastroenterology Kendell Kingston MD [address] [place] [address] [phone] 05/28/2020 Office Visit Geriatric Medicine Loren Christie MD [address] [place] [address] [address] [place], [place] [address] Health Maintenance Due Date [...] of this encounter Implants Implanted Type Area Neonatal Nurse Device Shelf Model / Identifier Expiration Serial / Date Lot Lutonix .035 4mm X 40mm X 75cm 5fr [id number] - Sn/A Balloo n Left: Arm Bard 07/30/2020 [id number] / Implanted: Qty: 1 on 03/15/2018 by Compa Catherine MD at [facility] N/A / [id number] Angio-Seal Evolution Vascular Closure Device [employer] M edical #[id number] - S0 OCCLUSION Right: Terumo 09/20/2018 [id number] / Implanted: Qty: 1 on 08/09/2018 by Phi Perdue Jr., MD at [facility] DEVICE Groin 0 / [id number] Stent, [place] [id number] Viabahn Vasc 120cm Cath #[id number] - S [id number] STENT Left: Arm W L [place] 02/01/2021 [id number] / Implanted: Qty: 1 on 06/28/2018 by Compa Catherine MD at [facility] [id number] / NA documented as of this encounter Procedures Procedure Name Priority Date/Time Associated Diagnosis Comme nts HOME HEALTH - OTHER Routine 04/13/2020 12:01 AM INTERNATIONAL SPECIALIST documented in this encounter Results Not on filedocumented in this encounter Insurance Payer Benefit Plan / Subscriber ID Effective Dates Phone Addre ss Type Group MEDICARE MEDICARE PART [id number] 2003-[place] [phone] [address] Medicare A & B nt 2 [id number] [place] [address] [facility] MEDICAID OF [id number] 2016-[place] [phone] [address] Medicaid [place] t 0 [id number] [place] [address] documented as of this encounter Advance Directives Type Date Recorded Patient Zoning Engineer Explanati on Advance Directives and Living 01/25/2015 10:11 AM Will Power of Latex Dipper 01/25/2015 10:11 AM
--- OUTSIDE RECORDS SUMMARY | 2020-05-30 21:40 | XMS REPORT | Summary of Care ---
:1945 Author Organization [facility] Address [address] [place] [id number] Care Team Providers Name Role Phone Loren Christie MD Unavailable Estephania Dsouza DO Unavailable LEONARDO James Unavailable Pcp-Lab Unavailable Unavailable DEISY Winn Unavailable Edi Christie MD Primary Care Provider Reason for Visit Reason Comments Follow-up Encounter Details Date Type Department Care Team Description 04/25/2020 Office Visit [facility] Cornel Whitehead MD Postop check (Primary Dx); Cardiothoracic [address] [place] [address] [address] S/P CABG x 2 (free MATA-LAD, 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;Dr Whitehead Surgery-[facility] [id number] [place] [address], [facility] [facility] [place] [address] Allergies No Known Allergiesdocumented as [...] Cyn gill 03/25/2020 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 ESRD (end stage renal disease) 03/19/2020 Dialysis patient 03/19/2020 Essential hypertension 03/19/2020 Dyspnea 2020 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 05/02/2019 Malfunction of arteriovenous dialysis fistula, initial encounter 03/31/2019 Overview: Added automatically from [employer] [id number] Bilateral carotid artery stenosis 07/27/2018 Overview: Added automatically from [employer] [id number] TIA (transient ischemic attack) 05/29/2018 Dialysis patient 04/18/2018 ESRD (end stage renal disease) 01/03/2018 Overview: Added automatically from [employer] [id number] Diabetic polyneuropathy associated with type 2 diabete [...] HLD (hyperlipidemia) 02/26/2011 Overview: ICD10 Diagnosis 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 documented as of this encounter Last Filed Vital Signs Vital Sign Reading Time Taken Comments Blood Pressure 166/76 04/25/2020 2:25 PM RED MUD THICKENER OPERATOR Pulse 84 04/25/2020 2:25 PM RED MUD THICKENER OPERATOR Temperature 36.3 C (97.4 F) 04/25/2020 2:20 PM RED MUD THICKENER OPERATOR Respiratory Rate 20 04/25/2020 2:20 PM RED MUD THICKENER OPERATOR Oxygen Saturation - - Inhaled Oxygen Concentration - - Weight 64.9 kg (143 lb) 04/25/2020 2:20 PM RED MUD THICKENER OPERATOR Height 167.6 cm (5' 6") 04/25/2020 2:20 PM RED MUD THICKENER OPERATOR Body Mass Index 23.08 04/25/2020 2:20 PM RED MUD THICKENER OPERATOR documented in this encounter Patient Instructions Patient InstructionsLeidy Cherry FNP - 04/25/2020 2:30 PM CSTSternal precautions to continue for a total of 6 weeks from date of surgery Discontinue sternal precautions 05/09/2020 No lifting, pulling or reaching with arms for a total of 6 weeks from date of surgery. Discontinue on 05/09/2020 Cardiac rehab referral placed Start [id number] Zyrtec for the cough and nasal drip. Call me if you have any questions or concerns. Leidy Cherry, Nurse Practitioner Office: [phone] Patient Education Cardiac Rehabilitation: Following an Exercise [...] hospital. Your healthcare provider and a cardiac rehab manager will explain how it works. At first, [...] (especially after exercise) Lightheadedness, dizziness, or nausea [email or web address] last reviewed this educational content on 10/22/201819991764-2512 [employer]. All rights reserved. This information is not [...] if this is an option for you. [email or web address] last reviewed this educational content on 08/23/201919995050-9309 [employer]. All rights reserved. This information is not intended as a substitute for professional medical care. Always follow your healthcare professional's instructions. MUD THICKENER OPERATOR documented in this encounter Progress Notes Leidy [...] his son as additional historian and his [id number] was on viaspeaker phone. The only concern [...] drip - Seen with Dr. Ventura Cherry, GAS PUMPING STATION HELPER-C Cardiovascular Surgery MUD THICKENER OPERATOR documented in this encounter Plan of Treatment Date Type Specialty Care Team Description 05/08/2020 Office Visit Cardiology William Church MD [address] [place] [address] [phone] 05/27/2020 Office Visit Gastroenterology Kendell Kingston MD [address] [place] [address] [phone] 05/28/2020 Office Visit Geriatric Medicine Loren Christie MD [address] [place] [address] [address] [place] [address] 555 Health Maintenance Due Date Last Done [...] of this encounter Implants Implanted Type Area Devulcanizer Charger Device Shelf Model / Identifier Expiration Serial / Date Lot Lutonix .035 4mm X 40mm X 75cm 5fr Bard#[id number] - Sn/A Balloo n Left: Arm Bard 07/30/2020 [id number] / Implanted: Qty: 1 on 03/15/2018 by Compa Catherine MD at [facility] N/A / [id number] Angio-Seal Evolution Vascular Closure Device [employer] M edical #[id number] - S0 OCCLUSION Right: Terumo 09/20/2018 [id number] / Implanted: Qty: 1 on 08/09/2018 by Phi Perdue Jr., MD at [facility] DEVICE Groin 0 / [id number] Stent, [place] [id number] Viabahn Vasc 120cm Cath #[id number] - S [id number] STENT Left: Arm W L [place] 02/01/2021 [id number] / Implanted: Qty: 1 on 06/28/2018 by Compa Catherine MD at [facility] [id number] / NA documented as of this encounter Results Not on filedocumented in this encounter Visit Diagnoses Diagnosis Postop check - Primary Follow-up examination, following unspeci fied surgery S/P CABG x 2 (free MATA-LAD, 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;Dr Whitehead Postsurgical aortocoronary bypass status documented in this encounter Insurance Payer Benefit Plan / Subscriber ID Effective Dates Phone Addre ss Type Group MEDICARE MEDICARE PART [id number] 2003-Prese 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
--- OUTSIDE RECORDS SUMMARY | 2020-05-30 21:41 | XMS REPORT | Summary of Care ---
:1945 Author Organization [facility] Address [address] [place] [id number] Care Team Providers Name Role Phone Loren Christie MD Unavailable Estephania Dsouza DO Unavailable LEONARDO James Unavailable Pcp-Lab Unavailable Unavailable DEISY Winn Unavailable Edi Christie MD Primary Care Provider Reason for Referral (Routine) Status Reason Specialty Diagnoses / Referred By Contact Refe rred To Procedures Contact New Request Diagnoses S/P CABG x 2 Essential hypertension William Guillen MD Procedures EVENT MONITOR 30 DAYS EVENT MONITOR 30 DAYS [address] [place] [phone] Phone: (Routine) Status Reason Specialty Diagnoses / Referred By Contact Refe rred To Procedures Contact New Request Cardiology Diagnoses S/P CABG x 2 William Guillen MD Procedures ECHO ROUTINE W/DOPPLER COLOR [address] [place] [phone] Phone: (Routine) Status Reason Specialty Diagnoses / Referred By Referred To Procedures Contact Contact New Request Otolaryngology Diagnoses Cough William Guillen, Procedures CONSULT OTOLARYNGOLOGY 100[address] Estella Mcnamara [address] [place] [address] [place] [phone] Reason for Visit Reason Comments Follow-up Other (Routine) Status Reason Specialty Diagnoses / Referred By Referred To Procedures Contact Contact New Request Cardiology Diagnoses S/P CABG x 2 Cornel Whitehead MD [place], Afaq, MD Procedures Discharge Follow-up: Specialty Provider WILLIAM GUILLEN; 4-[address] [place] [address] [address] [place] [phone] Phone: Fax: Encounter Details Date Type Department Care Team Description 05/08/2020 Office Visit [facility] William Guillen MD Coronary artery disease involving [place] coronary artery of [place] heart without angina pectoris (Primary Dx); Cardiology[address] S/P CABG x 2 (free MATA-LAD, 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;Dr Whitehead; [facility] 6th Floor Essential hypertension; [address] [place], [place] Cough; 4th Floor [phone] Pleural effusion; [place], [place] [phone] Mixed hyperlipidemia; [phone] LV dysfunction; [phone] Paroxysmal atri al fibrillation Allergies No Known Allergiesdocumented as of this encounter (statuses as of 05/08/2020) Medications Medication Sig Dispensed Refills Start Date [...] 2 (two) times daily for 30 days. aspirin 81 mg Take 1 90 tablet [...] S/P CABG x 2 mouth at bedtime. Melatonin 5 mg Cap Take 5 0 A ctive mg/day by mouth daily. metoprolol Take 1 60 tablet 2 05/08/2020 Active succinate XL 50 mg tablet by 24 hr mouth daily. tabletIndications: S/P CABG x 2, Essential hypertension metoprolol Take 1 60 tablet 2 04/11/2020 Disconti nued tartrate 25 mg tablet by 0 (Dose adjustment) tabletIndications: mouth 2 S/P CABG x 2 (two) times daily. documented as of this encounter (statuses as of 05/08/2020) Active Problems Problem Noted Date Upper GI bleed 04/08/2020 Heart failure 03/29/2020 S/P CABG x 2 (free MATA-LAD, 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;Dr Cyn gill 03/25/2020 Coronary artery disease involving [place] coronary sarah ry of [place] heart 03/19/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 ESRD (end stage renal disease) 03/19/2020 Dialysis patient 03/19/2020 Essential hypertension 03/19/2020 Dyspnea 2020 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 05/02/2019 Malfunction of arteriovenous dialysis fistula, initial encounter 03/31/2019 Overview: Added automatically from request for [place] [id number] Bilateral carotid artery stenosis 07/27/2018 Overview: Added automatically from [employer] [id number] TIA (transient ischemic attack) 05/29/2018 Dialysis patient 04/18/2018 ESRD (end stage renal disease) 01/03/2018 Overview: Added automatically from [employer] [id number] Diabetic polyneuropathy associated with type 2 diabete [...] HLD (hyperlipidemia) 02/26/2011 Overview: ICD10 Diagnosis Term Layaway Clerk Utility Backache 08/05/2006 Overview: Lower back pain - totally disabled ICD10 Diagnosis Term [employer]ayaway Clerk Utility Hearing loss 08/05/2006 Overview: Both ears ICD10 Diagnosis Term [place]ayaway Clerk Utility documented as of this encounter (statuses as of 05/08/2020) Resolved Problems Problem Noted Date Resolved Date CKD (chronic kidney disease) stage 4, GFR 15-29 ml/min 06/0304/29/2018 Need for vaccination 03/30/2017 04/29/2018 Uncontrolled type 2 diabetes mellitus with stage 4 chronic 1 04/29/2018 kidney disease, with long-term current use of insulin Type 2 diabetes mellitus with diabetic chronic kidney 201403/17/2016 disease documented as of this encounter (statuses as of 05/08/2020) Immunizations Name Administration Dates Next Due Influenza [...] been in contact with No / Unsure 05/08/2020 3:26 PM 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 documented as of this encounter Last Filed Vital Signs Vital Sign Reading Time Taken Comments Blood Pressure 143/64 05/08/2020 3:18 PM PLATE PUT IN WORKER Pulse 79 05/08/2020 3:18 PM PLATE PUT IN WORKER Temperature 36.1 C (97 F) 05/08/2020 3:18 PM PLATE PUT IN WORKER Respiratory Rate 18 05/08/2020 3:18 PM PLATE PUT IN WORKER Oxygen Saturation 99% 05/08/2020 3:18 PM PLATE PUT IN WORKER Inhaled Oxygen Concentration - - Weight 63 kg (138 lb 12.8 oz) 05/08/2020 3:18 PM PLATE PUT IN WORKER Height 167.6 cm (5' 6") 05/08/2020 3:18 PM PLATE PUT IN WORKER Body Mass Index 22.4 05/08/2020 3:18 PM PLATE PUT IN WORKER documented in this encounter Patient Instructions Patient InstructionsMoWilliam quijano MD - 05/08/2020 3:30 PM CST1. Please stop metorolol 2. Start taking metoprolol succinate 50 mg daily 3. Monitor BP at home 4. Please get echocardiogram. 5. Event monitor after 1 month. 6. Referring you to ENT specialist for your throat E PUT IN WORKER documented in this encounter Progress Notes William Guillen MD - 05/08/2020 3:30 PM CST CARDIOLOGY OFFICE VISIT - FOLLOW UP CC: Dr Christie HPI: Patient is 75 year M with PMH of CAD s/p CABG DM-2 ESRD HTN HLD TIA Pt was admitted to the hospital 02/2020 for SOB and vol overload requiring biPAP. He had trop 0.4. Iperformed LHC which showed 3VD. Underwent CABG with Dr Whitehead I saw this patient in when I did his LHC. He had 3VD, including prox RCA DIRECTOR OF CARDIAC REHABILITATION. He had CABG by Dr Whitehead (MATA-LAD< 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. She said the PDA/PLB targets were too small to bypass. He had short run of AF rvr post op. He was readmitted 04/08 - for Hb drop to 4.7 with vasovagal episode during rehab. Had 2 blood tranfx and EGD with 4 non bleeding ulcers. Plavix was held. Interval History: He is feeling phlegm in his throat and cough since CABG. Was very weak after GI bleed and still getting rehab, but still needing a cane to walk. Occasional palpitations. reports home monitor reading AF occasionally No CP, SOB. No edema. No further melena. Medications: Current Outpatient Medications Medication Sig Dispense Refill Melatonin 5 mg Cap Take 5 mg/day by mouth daily. atorvastatin 80 mg tablet Take 1 tablet [...] No current facility-administered medications for this visit. Past Medical & Sugical History: Past Medical History: Diagnosis Date CKD (chronic [...] Left 03/15/2018 Surgeon: Compa Beltran; Location[facility] ANGIOPLASTY Left 06/28/2018 Surgeon: Compa Beltran; Location: [facility] ANGIOPLASTY Left 12/12/2019 Surgeon: Carlos Wilkins MD; Location[facility] ARTERIOVENOUS FISTULA CREATION Left 01/14/2018 Surgeon: Compa Beltran; Location: [facility] ARTERIOVENOUS FISTULA CREATION Left 2018 Left arm BACK SURGERY 2005 BLADDER NECK INCISION N/A 03/26/2015 Surgeon: Robert To; [facility] BLADDER NECK INCISION N/A 06/19/2015 Surgeon: Robert To; [facility] CAROTID ANGIOGRAPHY Bilateral 08/09/2018 Surgeon: Phi Perdue Jr., MD; Location: [facility] CORONARY ARTERY BYPASS GRAFT N/A 03/25/2020 Surgeon: Cornel Whitehead MD; Location: [facility] CYSTOSCOPY N/A 03/25/2020 Surgeon: Keegan Valverde MD; Location: [facility] ENDOSCOPIC VEIN HARVEST (SHX) Left 03/25/2020 Surgeon: Cornel Whitehead MD; Location: [facility] ENDOVASCULAR UPPER EXTREMITY ANGIOPLASTY Left 04/04/2019 Surgeon: Ezequiel Cazares MD; Location: [facility] ESOPHAGOGASTRODUODENOSCOPY N/A 04/09/2020 Surgeon: Nayan Sanches MD; [facility] EXTRACAPSULAR CATARACT EXTRACTION WITH INTRAOCULAR LENS IMPLANT Bilateral 2011 Both eyes FISTULOGRAM Left 03/15/2018 Surgeon: Compa Beltran; Location: [facility] FISTULOGRAM Left 06/28/2018 Surgeon: Compa Beltran; Location: [facility] FISTULOGRAM Left 10/04/2018 Surgeon: Shiv Hough MD; Location: [facility] INTRAOPERATIVE FISTULOGRAM Left 04/04/2019 Surgeon: Ezequiel Cazares MD; Location: [facility] PROSTATECTOMY RADICAL RETROPUBIC PROSTATECTOMY N/A 01/08/2015 Surgeon: Robert To; Location: [facility] SPINE SURGERY 2001 Lumbar spine surgery TRANSURETHRAL INCISION OF BLADDER NECK 03/26/2015 VASCULAR STENTING Left 06/28/2018 Surgeon: Compa Beltran; Location: [facility] Allergies: Allergies as of 05/08/2020 (No Known Allergies) Social History: Social History Socioeconomic History Marital status: Single [...] since quittin. 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 loss or wt. gain DERM: Denies rashes or other skin problems. EYES: Denies decreased visual acuity, eye pain, double vision/blurred vision. ENT: Denies decreased hearing, ear pain, tinnitus, nasal discharge. ENDOCRINE: Denies polyuria, polydipsia, problems with appetite, unusual hair growth, or postural dizziness. RESPIRATORY:+ cough - wheezing - SOB CARDIAC: Denies palpitations, chest pain, pain in the arm or neck on exertion, orthopnea, paroxysmalnocturnal dyspnea or syncope. GI: Denies hematemesis, abdominal pain, blood in the stool. MUSCULOSKELETAL: Denies excessive muscle aches or weakness. NEURO: Denies tingling/numbness, syncope, asymmetric weakness, alteration of vision, difficulty withgait or balance,difficulty with speech or coordination, amaurosis fugax. PSYCH: Denies anxiety or depression. VITALS: BP (!) 143/64 | Pulse 79 | Temp 36.1 C (97 F) (Oral) | Resp 18 | Ht 5' 6" (1.676 m) | Wt 138 lb 12.8 oz (63 kg) | SpO2 99% | BMI 22.40 kg/m PHYSICAL EXAM: GEN: in no apparent distress, appears stated age, well nourished. HEAD: Normocephalic, atraumatic EYES: conjunctivae and lids with no xanthelasma or pallor OROPHARYNX: mucous membranes moist, no pallor or cyanosis NECK: supple, no thyromegaly. JVP not elevated. No hepatojugular reflux, Carotids with normal amplitude. No bruits CHEST: Effort is unlabored. Auscultation bilaterally clear. Reduced breath sounds left base. HEART: Regular rhythm, S1: normal. S2: normal. No gallops, rubs noted. no murmur noted. ABDOMEN: no distension or tenderness, bowel sounds audible. Organomegaly: none NEURO: AAO x 3, No focal neurological deficits, cranial nerves intact, moves all extremities symmetrically. EXTREMITIES: No clubbing, cyanosis. Edema: no. Radial pulses intact, brachial pulses intact, femoral pulses intact, DP +1, PT +1 bilaterally PSYCHIATRIC: appropriate affect, does not appear to be depressed. SKIN: no significant lesions DATA REVIEWED: Labs, imaging and diagnostic studies were reviewed. Lab Results Component Value Date/Time NA 134 (L) 04/10/2020 06:11 AM NA 140 01/10/2014 03:29 PM K 4.8 04/10/2020 06:11 AM K 4.1 01/10/2014 03:29 PM CL 105 04/10/2020 06:11 AM CL 104 01/10/2014 03:29 PM GLU 146 (H) 04/10/2020 06:11 AM GLU 186 (H) 01/10/2014 03:29 PM BUN 82 (H) 04/10/2020 06:11 AM BUN 28 (H) 01/10/2014 03:29 PM CA 7.7 (L) 04/10/2020 06:11 AM CA 9.6 01/10/2014 03:29 PM CA 9.6 01/10/2014 03:29 PM Diagnostics: EKG: I reviewed the EKG done 03/28/20 which showed AF. Echocardiogram: TTE 03/18/20 Ejection Fraction = 50-55%.Mild golbal LV hypokinesis with more marked hypokinesis of the inferobasal segments Coronary angiogram 03/19/2020: Coronary dominance: right Left main: Distal LM 20% LAD: Ostial LAD 60-70% discrete stenosis Mid LAD 60-70% D1: Small sized, mild athero D2: Mild athero RI: Small sized, mild athero LCX: Prox LCx 70% Mid LCx 85% OM1: 50% diffuse stenosis RCA: Prox RCA 100% DIRECTOR OF CARDIAC REHABILITATION Distal RCA supplied by LAD septal collaterals PDA and PLB: Supplied by LAD septal collaterals LVEDP: 21 mmHg Subclavian Angiogram: Patent left subclavian and CAITLYN Right External Iliac angiogram: EIA normal ACCOUNTS PAYABLE ADMINISTRATOR mild athero SFA 70% prox stenosis Profunda proximally patent Procedure Details: 5 Fr RFA access, 5 Fr JL4 to LM, 5 Fr JR4 to LV and RCA, then to L subclavian. Impression: 1. Severe 3 vessel disease 1. 60-70% ostial LAD and 60-70% mid LAD 2. 70% prox LCx and 85% mid LCx 3. Prox RCA 100% DIRECTOR OF CARDIAC REHABILITATION 2. Mildly elevated left sided filling pressures [...] with patient, primary team and CV surgery. CABG 03/25/20: MATA-LAD, SVG-OM Per reports PDA/PL targets too small (< 1mm) to bypass. Impression & Plan: CAD - mild trop elevation, found to have 3VD (including prox RCA DIRECTOR OF CARDIAC REHABILITATION). - CABG 03/25/2020 (RCA DIRECTOR OF CARDIAC REHABILITATION unrevascularized) - explained about RCA DIRECTOR OF CARDIAC REHABILITATION - continue aspirin 81 faily - unable to tolerate plavix (GI bleed) - atorva 80 - Will hold off on anything for RCA, he has no symptoms now and unable to tolerate DAPT - TTE LV dysfunction: - Mild - repeat TTE - switch from metop bid to metop xl 50 - may add ILEANA HTN: - Home readings are still 140-150s - On amlodipine 5, metop 25 bid - lasix 80 - will increase metop to 50 xl 50 (for HTN, AF, LV dysfunction) - May need to increase metop xl and add ILEANA AF: - Paroxysmal post CABG - reports home monitor reading AF occasionally - His [id number] is high and would warrant AC if his AF doesn't reolve - For now though, he had a major GI bleed and not candidate for AC - Increase metop as above - event monitor in Jun (allow 3 months post CABG) HLD: - LDL 61 02/2020 - continue atorva 80 Throat soreness and phlegm - Started ever since CABG - Unclear if this is related to ET tube during GA - will refer to ENT GI bleed - off plavix - on protonix Pleural effusion? 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 No follow-ups on file. Problem list: Patient Active Problem List Diagnosis Backache Hearing loss Diabetes mellitus due to underlying condition, controlled, with chronic kidney disease on chronic dialysis, without long-term current use of insulin Essential hypertension, benign HLD (hyperlipidemia) Undiagnosed cardiac murmurs Cancer of prostate with intermediate recurrence risk (stage T2b-c or Padroni 7 or PSA 10-20) Diabetic polyneuropathy associated with type 2 diabetes mellitus ESRD (end stage renal disease) Dialysis patient TIA (transient ischemic attack) Bilateral carotid artery stenosis Malfunction of arteriovenous dialysis fistula, initial encounter 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 Dyspnea Coronary artery disease involving [place] coronary artery of [place] heart with angina pectoris ESRD (end stage renal disease) Dialysis patient Essential hypertension S/P CABG x 2 (free MATA-LAD, 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;Dr Whitehead Heart failure Upper GI bleed Risks, prognosis, and therapeutic options were thoroughly discussed with the patient to his understanding and satisfaction. All questions were answered. Patient agreed with plan. Sincerely, William Guillen MD 05/08/2020 5:11 PM Diagnoses: No diagnosis found. documented in this encounter Plan of Treatment Date Type Specialty Care Team Description 05/27/2020 Office Visit Gastroenterology Kendell Kingston MD [address] [place] [phone] 05/28/2020 Office Visit Geriatric Medicine Loren Christie MD [address] [place] [address] [address] [place], [place] [phone] 06/11/2020 Appointment Heart Station William Guillen MD [address] [place] [phone] Monitor, [facility] Cardio Loop 06/11/2020 Appointment Echocardiograph Pc, [facility] Echo Room 2 - 08/21/2020 Office Visit Cardiology William Guillen MD [address] [place] [phone] Name Type Priority Associated Diagnoses Order S chedule EVENT MONITOR 30 PROCEDURES Routine S/P CABG x 2 (free Expec geovanna: DAYS MATA-LAD, SVG-OM) on 021, Expires: 03/25/2020;Dr Monico alfaro 05/07/2021 Essential hypertension XR CHEST 1 VW IMAGING Routine S/P CABG x 2 (free Expected : MATA-LAD, SVG-OM) on 020, Expires: 03/25/2020;Dr Whitehead 05/08/2021 Health Maintenance Due Date Last Done Comments [...] of this encounter Implants Implanted Type Area Records Management Coordinator Device Shelf Model / Identifier Expiration Serial / Date Lot Lutonix .035 4mm X 40mm X 75cm 5fr [id number] - Sn/A Balloo n Left: Arm Bard 07/30/2020 [id number] / Implanted: Qty: 1 on 03/15/2018 by Compa Catherine MD at [facility] N/A / [id number] Angio-Seal Evolution Vascular Closure Device [employer] M edical #[id number] - S0 OCCLUSION Right: Terumo 09/20/2018 [id number] / Implanted: Qty: 1 on 08/09/2018 by Phi Perdue Jr., MD at [facility] DEVICE Groin 0 / [id number] Stent, [place] [id number] Viabahn Vasc 120cm Cath #[id number] - S [id number] STENT Left: Arm W L [place] 02/01/2021 [id number] / Implanted: Qty: 1 on 06/28/2018 by Compa Catherine MD at [facility] [id number] / NA documented as of this encounter Results Not on filedocumented in this encounter Visit Diagnoses Diagnosis Coronary artery disease involving [place] coronary artery of [place] heart without angina pectoris - Primary S/P CABG x 2 (free MATA-LAD, 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;Dr Whitehead Postsurgical aortocoronary bypass status Essential hypertension Unspecified essential hypertension Cough Pleural effusion Unspecified pleural effusion Mixed hyperlipidemia LV dysfunction Heart disease, unspecified Paroxysmal atrial fibrillation Atrial fibrillation documented in this encounter Insurance Payer Benefit Plan / Subscriber ID Effective Dates Phone Addre ss Type Group MEDICARE MEDICARE PART [id number] 2003-[place] [phone] Medicare A & B nt [id number] [place] [address] [facility] [place] MEDICAID OF [id number] 2016-Dawson [phone] Medicaid [place] t 0 [id number] [place] [address] documented as of this encounter Advance Directives Type Date Recorded Patient Corporate Job Titles Explanati on Advance Directives and Living 01/25/2015 10:11 AM Will Power of Clip Riveter 01/25/2015 10:11 AM
--- OUTSIDE RECORDS SUMMARY | 2020-05-30 21:41 | XMS REPORT | Summary of Care ---
:1945 Author Organization [facility] - Health Address [address] [place] [address] Care Team Providers Name Role Phone Loren Chritsie MD Unavailable Estephania Dsouza DO Unavailable LEONARDO James Unavailable Pcp-Lab Unavailable Unavailable DEISY Winn Unavailable Edi Christie MD Primary Care Provider Encounter Details Date Type Department Care Team Description 05/01/2020 Orders Only [facility] Doctor Unassigned, No [address] [facility] [place] [address] 301 [place] [address] Allergies No Known Allergiesdocumented as of this encounter (statuses as of 05/01/2020) Medications Medication Sig Dispensed Refills Start Date [...] as of this encounter (statuses as of 05/01/2020) Active Problems Problem Noted Date Upper GI bleed 04/08/2020 Heart failure 03/29/2020 S/P CABG x 2 (free MATA-LAD, 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;Dr Cyn gill 03/25/2020 Coronary artery disease involving [place] coronary sarah ry of [place] heart 03/19/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 ESRD (end stage renal disease) 03/19/2020 Dialysis patient 03/19/2020 Essential hypertension 03/19/2020 Dyspnea 2020 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 05/02/2019 Malfunction of arteriovenous dialysis fistula, initial encounter 03/31/2019 Overview: Added automatically from request for israel peoples [id number] Bilateral carotid artery stenosis 07/27/2018 Overview: Added automatically from request for israel peoples [id number] TIA (transient ischemic attack) 05/29/2018 Dialysis patient 04/18/2018 ESRD (end stage renal disease) 01/03/2018 Overview: Added automatically from request for israel peoples [id number] Diabetic polyneuropathy associated with type 2 diabete [...] HLD (hyperlipidemia) 02/26/2011 Overview: ICD10 Diagnosis Term It Operations Specialist Utility Backache 08/05/2006 Overview: Lower back pain - totally disabled ICD10 Diagnosis Term It Operations Specialist Utility Hearing loss 08/05/2006 Overview: Both ears ICD10 Diagnosis Term It Operations Specialist Utility documented as of this encounter (statuses as of 05/01/2020) Resolved Problems Problem Noted Date Resolved Date CKD (chronic kidney disease) stage 4, GFR 15-29 ml/min 06/0304/29/2018 Need for vaccination 03/30/2017 04/29/2018 Uncontrolled type 2 diabetes mellitus with stage 4 chronic 1 04/29/2018 kidney disease, with long-term current use of insulin Type 2 diabetes mellitus with diabetic chronic kidney 201403/17/2016 disease documented as of this encounter (statuses as of 05/01/2020) Immunizations Name Administration Dates Next Due Influenza [...] with No / Unsure 04/17/2020 12:46 PM LAB MANAGER someone who was confirmed or suspected to have 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 documented as of this encounter Last Filed Vital Signs Not on filedocumented in this encounter Plan of Treatment Date Type Specialty Care Team Description 05/08/2020 Office Visit Cardiology William Church MD [address] 6th Floor [place] [address] [phone] 05/27/2020 Office Visit Gastroenterology Kendell Kingston MD [address] [place] [address] [phone] 05/28/2020 Office Visit Geriatric Medicine Loren Christie MD [address] [place] [address] [address] [place], [place] [address] Health Maintenance Due Date [...] of this encounter Implants Implanted Type Area Watch Repair Technician Device Shelf Model / Identifier Expiration Serial / Date Lot Lutonix .035 4mm X 40mm X 75cm 5fr [id number] - Sn/A Balloo n Left: Arm Bard 07/30/2020 [id number] / Implanted: Qty: 1 on 03/15/2018 by Compa Catherine MD at [facility] N/A / [id number] Angio-Seal Evolution Vascular Closure Device [employer] Iglesia M edical #[id number] - S0 OCCLUSION Right: Terumo 09/20/2018 [id number] / Implanted: Qty: 1 on 08/09/2018 by Phi Perdue Jr., MD at [facility] DEVICE Groin 0 / [id number] Stent, [place] [id number] Viabahn Vasc 120cm Cath #[id number] - S [id number] STENT Left: Arm W L [place] 02/01/2021 [id number] / Implanted: Qty: 1 on 06/28/2018 by Compa Catherine MD at [facility] [id number] / NA documented as of this encounter Procedures Procedure Name Priority Date/Time Associated Diagnosis Comme nts EXTERNAL PROVIDER Routine 05/01/2020 12:01 AM LAB MANAGER RECORDS documented in this encounter Results Not on filedocumented in this encounter Insurance Payer Benefit Plan / Subscriber ID Effective Dates Phone Addre ss Type Group MEDICARE MEDICARE PART [id number] 2003-[place]ulma [phone] 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
--- OUTSIDE RECORDS SUMMARY | 2020-05-30 21:41 | XMS REPORT | Summary of Care ---
:1945 Author Organization [facility] Address [address] [place] [address] Care Team Providers Name Role Phone Loren [...] 30 DAYS EVENT MONITOR 30 DAYS [address] [place] [phone] Phone: (Routine) Status Reason Specialty Diagnoses / Referred By Contact Refe rred To Procedures Contact New Request Cardiology Diagnoses S/P CABG x 2 William Guillen MD Procedures ECHO ROUTINE W/DOPPLER COLOR [address] [place] [phone] Phone: (Routine) Status Reason Specialty Diagnoses / Referred By Referred To Procedures Contact Contact New Request Otolaryngology Diagnoses Cough William Guillen, Procedures CONSULT OTOLARYNGOLOGY [address] Estella Mcnamara [address] [place] [address] [place] [phone] Reason for Visit Reason Comments Follow-up Other (Routine) Status Reason Specialty Diagnoses / Referred By Referred To Procedures Contact Contact New Request Cardiology Diagnoses S/P CABG x 2 Cornel Whitehead MD [place], Afaq, MD Procedures Discharge Follow-up: Specialty Provider WILLIAM GUILLEN; 4-[address] [place] [address] [address] [place] [phone] Phone: Fax: Encounter Details Date Type Department Care Team Description 05/08/2020 Office Visit [facility] William Guillen MD Coronary artery disease involving [place] coronary artery of [place] heart without angina pectoris (Primary Dx); Cardiology[address] S/P CABG x 2 (free MATA-LAD, 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;Dr Whitehead; 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 05/02/2019 Malfunction of arteriovenous dialysis fistula, initial encounter 03/31/2019 Overview: Added automatically from request for israel peoples [id number] Bilateral carotid artery stenosis 07/27/2018 Overview: Added automatically from request for israel peoples [id number] TIA (transient ischemic attack) 05/29/2018 Dialysis patient 04/18/2018 ESRD (end stage renal disease) 01/03/2018 Overview: Added automatically from request for israel peoples [id number] Diabetic polyneuropathy associated with type 2 diabete [...] HLD (hyperlipidemia) 02/26/2011 Overview: ICD10 Diagnosis Term University Registrar Utility Backache 08/05/2006 Overview: Lower back pain - totally disabled ICD10 Diagnosis Term University Registrar Utility Hearing loss 08/05/2006 Overview: Both ears ICD10 Diagnosis Term University Registrar Utility documented as of this encounter (statuses [...] with No / Unsure 05/08/2020 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 documented as of this encounter Last Filed Vital Signs Vital Sign Reading Time Taken Comments Blood Pressure 143/64 05/08/2020 3:18 PM RAILROAD CAR REPAIRMAN Pulse 79 05/08/2020 3:18 PM RAILROAD CAR REPAIRMAN Temperature 36.1 C (97 F) 05/08/2020 3:18 PM RAILROAD CAR REPAIRMAN Respiratory Rate 18 05/08/2020 3:18 PM RAILROAD CAR REPAIRMAN Oxygen Saturation 99% 05/08/2020 3:18 PM RAILROAD CAR REPAIRMAN Inhaled Oxygen Concentration - - Weight 63 kg (138 lb 12.8 oz) 05/08/2020 3:18 PM RAILROAD CAR REPAIRMAN Height 167.6 cm (5' 6") 05/08/2020 3:18 PM RAILROAD CAR REPAIRMAN Body Mass Index 22.4 05/08/2020 3:18 PM RAILROAD CAR REPAIRMAN documented in this encounter Patient Instructions Patient InstructionsMoWilliam quijano MD - 05/08/2020 3:30 PM CST1. Please stop metorolol 2. Start taking metoprolol succinate 50 mg daily 3. Monitor BP at home 4. Please get echocardiogram. 5. Event monitor after 1 month. 6. Referring you to ENT specialist for your throat ROAD CAR REPAIRMAN documented in this encounter Progress Notes William [...] LHC. He had 3VD, including prox RCA UTILITY WORKER ROLLER SHOP. He had CABG by Dr Whitehead (MATA-LAD< [...] Left 03/15/2018 Surgeon: Compa Beltran; [facility] ANGIOPLASTY Left 06/28/2018 Surgeon: Compa Beltran; [facility] ANGIOPLASTY Left 12/12/2019 Surgeon: Carlos Wilkins MD; [facility] ARTERIOVENOUS FISTULA CREATION Left 01/14/2018 Surgeon: Compa Beltran; Location: [facility] ARTERIOVENOUS FISTULA CREATION Left 2018 Left arm BACK SURGERY 2005 BLADDER NECK INCISION N/A 03/26/2015 Surgeon: Robert To; Location: [facility] BLADDER NECK INCISION N/A 06/19/2015 Surgeon: Robert To; Location: [facility] CAROTID ANGIOGRAPHY Bilateral 08/09/2018 Surgeon: Phi Perdue Jr., MD; Location: [facility] CORONARY ARTERY BYPASS GRAFT N/A [...] Left 03/15/2018 Surgeon: Compa Beltran; Location: [facility] FISTULOGRAM Left 06/28/2018 Surgeon: Compa Beltran; Location: [facility] FISTULOGRAM Left 10/04/2018 Surgeon: Shiv Hough MD; Location: [facility] INTRAOPERATIVE FISTULOGRAM Left 04/04/2019 Surgeon: [...] file Gets together: Not on file Attends yazidism service: Not on file Active member of [...] - no children 4th grade education 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 Impression: 1. Severe 3 vessel disease 1. 60-70% ostial LAD and 60-70% mid LAD 2. 70% prox LCx and 85% mid LCx 3. Prox RCA 100% UTILITY WORKER ROLLER SHOP 2. Mildly elevated left sided filling pressures [...] found to have 3VD (including prox RCA UTILITY WORKER ROLLER SHOP). - CABG 03/25/2020 (RCA UTILITY WORKER ROLLER SHOP unrevascularized) - explained about RCA UTILITY WORKER ROLLER SHOP - continue aspirin 81 faily - unable [...] home monitor reading AF occasionally - His [id number] is high and would warrant AC if [...] pulm if there is a significant effusion REMARKETING REP 3 months TTE Event monitor ENT referral [...] with intermediate recurrence risk (stage T2b-c or [place] 7 or PSA 10-20) Diabetic polyneuropathy associated with type 2 diabetes mellitus ESRD (end stage renal disease) Dialysis patient TIA (transient ischemic attack) Bilateral carotid artery stenosis Malfunction of arteriovenous dialysis fistula, initial encounter 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 Dyspnea Coronary artery disease involving [place] coronary artery of [place] heart with angina pectoris ESRD (end stage [...] 05/27/2020 Office Visit Gastroenterology Kendell Kingston MD [address] [place] [phone] 05/28/2020 Office Visit Geriatric Medicine Loren Christie MD [address] [place] [address] [address] [place], [place] [address] 06/11/2020 Appointment Heart Station William Guillen MD [address] [place] [phone] Monitor, Clc-Bls Cardio Loop 06/11/2020 Appointment Echocardiograph Pc, Clc-Bls Echo Room 2 - 08/21/2020 Office Visit Cardiology William Guillen MD [address] [place] [phone] Name Type Priority Associated Diagnoses Order S chedule EVENT MONITOR 30 PROCEDURES Routine S/P CABG x 2 (free Expec geovanna: DAYS MATA-LAD, SVG-OM) on 021, Expires: 03/25/2020;Dr Monico alfaro 05/07/2021 Essential hypertension XR CHEST 1 VW IMAGING Routine S/P CABG x 2 (free Expected : MATA-LAD, SVG-OM) on 020, Expires: 03/25/2020;Dr Whiteheda 05/08/2021 Health Maintenance Due Date Last Done [...] of this encounter Implants Implanted Type Area Armed Security Guard Device Shelf Model / Identifier Expiration Serial / Date Lot Lutonix .035 4mm X 40mm X 75cm 5fr Bard#[id number] - Sn/A Balloo n Left: Arm Bard 07/30/2020 [id number] / Implanted: Qty: 1 on 03/15/2018 by Compa Catherine MD at [facility] N/A / [id number] Angio-Seal Evolution Vascular Closure Device [employer] Iglesia M edical #[id number] - S0 OCCLUSION Right: Terumo 09/20/2018 [id number] / Implanted: Qty: 1 on 08/09/2018 by Phi Perdue Jr., MD at [facility] DEVICE Groin 0 / [id number] Stent, [place] [id number] Viabahn Vasc 120cm Cath #[id number] - S [id number] STENT Left: Arm W L [place] 02/01/2021 [id number] / Implanted: Qty: 1 on 06/28/2018 by Compa Catherine MD at [facility] [id number] / NA documented as of this encounter Results Not on filedocumented in this encounter Visit Diagnoses Diagnosis Coronary artery disease involving [place] coronary artery of [place] heart without angina pectoris - Primary S/P [...] Addre ss Type Group MEDICARE MEDICARE PART [id number] 2003-Sulma [phone] [address] Medicare A & B nt 2 [id number] [place] [address] [facility] MEDICAID OF [id number] 2016-Dawson [phone] [address] Medicaid [place] t 0 [id number] [place] [address] documented as of this encounter Advance Directives Type Date Recorded Patient Remote Sensing Program Manager Explanati on Advance Directives and Living 01/25/2015 10:11 AM Will Power of General Practice 01/25/2015 10:11 AM
--- OUTSIDE RECORDS SUMMARY | 2020-05-30 21:41 | XMS REPORT | Summary of Care ---
:1945 Author Organization [facility] Address [address] [place] [address] Care Team Providers Name Role Phone Loren Christie MD Unavailable Estephania Dsouza DO Unavailable LEONARDO James Unavailable Pcp-Lab Unavailable Unavailable DEISY Winn Unavailable Edi Christie MD Primary Care Provider Reason for Referral (Routine) Status Reason Specialty Diagnoses / Referred By Referred To Procedures Contact Contact New Request Cardiac Diagnoses S/P CABG x 2 [facility] Procedures CONSULT/REFERRAL CARDIAC REHAB LEXX Quinn [address] [place] [phone] Reason for Visit Reason Comments REFERRAL Encounter Details Date Type Department Care Team Description 04/30/[address] [facility] and C[facility] REFERRAL Clinics LEXX Quinn [address] [place] [address] 301 [facility] [id number] [place] [phone] [place], [place] [phone] Allergies No Known Allergiesdocumented as of this [...] Cyn gill 03/25/2020 Coronary artery disease involving [place] coronary sarah ry of [place] heart 03/19/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 ESRD (end stage renal disease) 03/19/2020 Dialysis patient 03/19/2020 Essential hypertension 03/19/2020 Dyspnea 2020 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 05/02/2019 Malfunction of arteriovenous dialysis fistula, initial encounter 03/31/2019 Overview: Added automatically from request for israel shelton [id number] Bilateral carotid artery stenosis 07/27/2018 Overview: Added automatically from request for israel [place] [id number] TIA (transient ischemic attack) 05/29/2018 Dialysis patient 04/18/2018 ESRD (end stage renal disease) 01/03/2018 Overview: Added automatically from request for israel [place] [id number] Diabetic polyneuropathy associated with type 2 diabete [...] HLD (hyperlipidemia) 02/26/2011 Overview: ICD10 Diagnosis Term Front Tender Utility Backache 08/05/2006 Overview: Lower back pain - totally disabled ICD10 Diagnosis Term Front Tender Utility Hearing loss 08/05/2006 Overview: Both ears ICD10 Diagnosis Term Front Tender Utility documented as of this encounter (statuses [...] with No / Unsure 04/17/2020 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 documented as of this encounter Last Filed Vital Signs Not on filedocumented in this encounter Plan of Treatment Date Type Specialty Care Team Description 05/08/2020 Office Visit Cardiology William Church MD [address] [place], [place] [phone] 05/27/2020 Office Visit Gastroenterology Kendell Kingston MD [address] [place] [phone] 05/28/2020 Office Visit Geriatric Medicine Loren Christie MD [address] [place] [address] [address] [place], [place] [address] Health Maintenance Due Date [...] of this encounter Implants Implanted Type Area Econometrician Device Shelf Model / Identifier Expiration Serial / Date Lot Kiki Royal035 4mm X 40mm X 75cm 5fr Bard#[id number] - Sn/A Balloo n Left: Arm Bard 07/30/2020 [id number] / Implanted: Qty: 1 on 03/15/2018 by Compa Catherine MD at [facility] N/A / [id number] Angio-Seal Evolution Vascular Closure Device St Iglesia M edical #[id number] - S0 OCCLUSION Right: Terumo 09/20/2018 [id number] / Implanted: Qty: 1 on 08/09/2018 by Phi Perdue Jr., MD at [facility] DEVICE Groin 0 / [id number] Stent, [place] [id number] Viabahn Vasc 120cm Cath #[id number] - S [id number] STENT Left: Arm W L [place] 02/01/2021 [id number] / Implanted: Qty: 1 on 06/28/2018 by Compa Catherine MD at [facility] [id number] / NA documented as of this encounter Results Not on filedocumented in this encounter Visit Diagnoses Diagnosis S/P CABG x 2 (free MATA-LAD, 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;Dr Whitehead - Primary Postsurgical aortocoronary bypass status documented in this encounter Insurance Payer Benefit Plan / Subscriber ID Effective Dates Phone Addre ss Type Group MEDICARE MEDICARE PART [id number] 2003-Prese [phone] 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
--- OUTSIDE RECORDS SUMMARY | 2020-05-30 21:42 | XMS REPORT | Summary of Care ---
:1945 Author Organization [facility] - [facility] Address [address] [place] [id number] Care Team Providers Name Role Phone Loren Christie MD Unavailable Estephania Dsouza DO Unavailable LEONARDO James Unavailable Pcp-Lab Unavailable Unavailable DEISY Winn Unavailable Ishmael Christie MD Primary Care Provider Reason for Visit Reason Comments Notification Blood Pressure 158/69 Encounter Details Date Type Department Care Team Description 05/09/[address] [facility] Geriatrics- Loren Christie, Notification; Blood [place] Pressure (158/69) Primary Care [address], [address] [address] [place] [phone] Allergies No Known Allergiesdocumented as of this encounter (statuses as of 05/09/2020) Medications Medication Sig Dispensed Refills Start Date [...] x 2 times daily for 30 days. aspirin 81 mg Take 1 tablet by [...] mouth at S/P CABG x 2 bedtime. Melatonin 5 mg Cap Take 5 mg/day by 0 Active mouth daily. metoprolol succinate Take 1 tablet by 60 tablet 2 05/08/2020 Active XL 50 mg 24 hr mouth daily. tabletIndications: S/P CABG x 2, Essential hypertension documented as of this encounter (statuses as of 05/09/2020) Active Problems Problem Noted Date Upper GI bleed 04/08/2020 Heart failure 03/29/2020 S/P CABG x 2 (free MATA-LAD, 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;Dr Cyn gill 03/25/2020 Coronary artery disease involving apache coronary sarah ry of apache heart 03/19/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 ESRD (end stage renal disease) 03/19/2020 Dialysis patient 03/19/2020 Essential hypertension 03/19/2020 Dyspnea 2020 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 05/02/2019 Malfunction of arteriovenous dialysis fistula, initial encounter 03/31/2019 Overview: Added automatically from [employer] [id number] Bilateral carotid artery stenosis 07/27/2018 Overview: Added automatically from [employer] [id number] TIA (transient ischemic attack) 05/29/2018 Dialysis patient 04/18/2018 ESRD (end stage renal disease) 01/03/2018 Overview: Added automatically from [employer] [id number] Diabetic polyneuropathy associated with type 2 diabete s mellitus 06/13/2015 Cancer of prostate with intermediate recurrence risk ( stage T2b-c or 11/13/2014 [place] 7 or PSA 10-20) Undiagnosed cardiac murmurs 01/05/2013 Diabetes mellitus due to underlying condition, control led, with chronic 02/26/2011 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 Essential hypertension, benign 02/26/2011 HLD (hyperlipidemia) 02/26/2011 Overview: ICD10 Diagnosis [employer] Backache 08/05/2006 Overview: Lower back pain - totally disabled ICD10 Diagnosis [employer] Hearing loss 08/05/2006 Overview: Both ears ICD10 Diagnosis [employer] documented as of this encounter (statuses as of 05/09/2020) Resolved Problems Problem Noted Date Resolved Date CKD (chronic kidney disease) stage 4, GFR 15-29 ml/min 06/0304/29/2018 Need for vaccination 03/30/2017 04/29/2018 Uncontrolled type 2 diabetes mellitus with stage 4 chronic 1 04/29/2018 kidney disease, with long-term current use of insulin Type 2 diabetes mellitus with diabetic chronic kidney 201403/17/2016 disease documented as of this encounter (statuses as of 05/09/2020) Immunizations Name Administration Dates Next Due Influenza [...] with No / Unsure 05/08/2020 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 documented as of this encounter Last Filed Vital Signs Not on filedocumented in this encounter Miscellaneous Notes Telephone Encounter - Patrica Tinajero - 05/09/2020 8:15 AM CSTPatient's HH nurse calling to give the patient's BP which is 158/69 yesterday when she seen the patient. documented in this encounter Plan of Treatment Date Type Specialty Care Team Description 05/27/2020 Office Visit Gastroenterology Kendell Kingston MD [address] [place] [address] [phone] 05/28/2020 Office Visit Geriatric Medicine Loren Christie MD [address] [place] [address] [address] [place], [place] [phone] 06/11/2020 Appointment [facility] [address] [place] [phone] Monitor, Clc-Bls Cardio Loop 06/11/2020 Appointment Echocardiograph Pc, Cl[facility]-Bls Echo Room 2 - 08/21/2020 Office Visit Cardiology William Church MD [address] [place] [phone] Health Maintenance Due Date Last Done Comments [...] of this encounter Implants Implanted Type Area Cage/Vault Supervisor Device Shelf Model / Identifier Expiration Serial / Date Lot Lutonix .035 4mm X 40mm X 75cm 5fr Bard#[id number] - Sn/A Balloo n Left: Arm Bard 07/30/2020 [id number] / Implanted: Qty: 1 on 03/15/2018 by Compa Catherine MD at [facility] N/A / [id number] Angio-Seal Evolution Vascular Closure Device [facility] [employer] #[id number] - S0 OCCLUSION Right: Terumo 09/20/2018 [id number] / Implanted: Qty: 1 on 08/09/2018 by Phi Perdue Jr., MD at [facility] DEVICE Groin 0 / [id number] Stent, [place] [id number] Viabahn Vasc 120cm Cath #[id number] - S [id number] STENT Left: Arm W L [place] 02/01/2021 [id number] / Implanted: Qty: 1 on 06/28/2018 by Compa Catherine MD at [facility] [id number] / NA documented as of this encounter Results Not on filedocumented in this encounter Insurance Payer Benefit Plan / Subscriber ID Effective Dates Phone Addre ss Type Group MEDICARE MEDICARE PART [id number] 2003-Presishmael [phone] Medicare A & B 2 [id number] [place] [id number] [facility] MEDICAID OF [id number] 2016-Dawson [phone] Medicaid [place] t 0 [id number] [place] [address] documented as of this encounter Advance Directives Type Date Recorded Patient Demand Inspector Explanati on Advance Directives and Living 01/25/2015 10:11 AM Will Power of Brine Tank Separator Operator 01/25/2015 10:11 AM
--- OUTSIDE RECORDS SUMMARY | 2020-05-30 21:42 | XMS REPORT | Summary of Care ---
:1945 Author Organization [facility] Address [address] [place] [address] Care Team Providers Name Role Phone Loren Christie MD Unavailable Estephania Dsouza DO Unavailable LEONARDO James Unavailable Pcp-Lab Unavailable Unavailable DEISY Winn Unavailable Ishmael Christie MD Primary Care Provider Reason for Referral (Routine) Status Reason Specialty Diagnoses / Referred By Referred To Procedures Contact Contact New Request Speech-Language Diagnoses Throat clearing Willy, Pathologist Procedures CONSULT SPEECH Jojo Cisneros PA-C [address] [place] [address] (Routine) Status Reason Specialty Diagnoses / Referred By Referred To Procedures Contact Contact New Request Diagnostic Diagnoses Pharyngoesophageal dysphagia Throat clearing Willy, Radiology Procedures MOD BARIUM SWALLOW, (KRISTOFER) Jojo Cisneros PA-C [address] [place] [address] Reason for Visit Reason Comments New Evaluation cough (Routine) Status Reason Specialty Diagnoses / Procedures Referred By Maxi soto To Contact Contact Closed Otolaryngology Diagnoses Cough William hCurch MD Procedures CONSULT OTOLARYNGOLOGY [address] [place] [address] Encounter Details Date Type Department Care Team Description 05/14/2020 Office Visit [facility] Ear, Aguilera, Throat mesha jose (Primary Dx); Nose & Throat Jojo Cisneros, Vasomotor rhinitis; Consultants- JACOB Pharyngoesophageal dysphagia ; [place] [address] Presbylarynges [address] [place] [address] [address] [place], [place] [phone] [address] Allergies No Known Allergiesdocumented as of this encounter (statuses as of 05/14/2020) Medications Medication Sig Dispensed Refills Start Date End Date Status sevelamer 800 mg tablet 2 tablets 3 0 02/07/2020 Active (three) times daily with meals. clotrimazole 1 % Apply to area(s) 1 Tube 3 02/27/2020 Active topical 2 (two) times creamIndications: daily. Fungal dermatosis aspirin 81 mg chewable Take 1 tablet by 90 tablet 1 04/11/2020 Active tabletIndications: S/P mouth daily. CABG x 2 amLODIPine 5 mg Take [...] Upper GI bleed times daily. polyethylene glycol 17 Take 17 g by 0 04/11/2020 Active gram/dose mouth 2 (two) powderIndications: S/P times daily as CABG x 2 needed for Constipation. sodium bicarbonate 650 Take 1 tablet by 0 04/11/2020 Active mg tabletIndications: mouth 3 (three) ESRD (end stage renal times daily. disease) furosemide 80 mg Take 1 tablet by 0 04/11/2020 Active tabletIndications: ESRD mouth daily. (end stage renal disease) atorvastatin 80 mg Take 1 tablet by 90 tablet 1 04/12/2020 Active tabletIndications: S/P mouth at bedtime. CABG x 2 Melatonin 5 mg Cap Take 5 mg/day by 0 Active mouth daily. metoprolol succinate XL Take 1 tablet by 60 tablet 2 0 Active 50 mg 24 hr mouth daily. tabletIndications: S/P CABG x 2, Essential hypertension cloNIDine 0.1 mg tablet 0 04/23/2020 Active metoprolol tartrate 25 0 05/04/2020 Active mg tablet ipratropium 42 mcg Use 2 Sprays in 15 mL 3 05/14/2020 Active (0.06 %) nasal each nostril 3 sprayIndications: (three) times Vasomotor rhinitis daily. documented as of this encounter (statuses as of 05/14/2020) Active Problems Problem Noted Date Upper GI bleed 04/08/2020 Heart failure 03/29/2020 S/P CABG x 2 (free MATA-LAD, 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;Dr Cyn gill 03/25/2020 Coronary artery disease involving robinson coronary sarah ry of robinson heart 03/19/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 ESRD (end stage renal disease) 03/19/2020 Dialysis patient 03/19/2020 Essential hypertension 03/19/2020 Dyspnea 2020 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 05/02/2019 Malfunction of arteriovenous dialysis fistula, initial encounter 03/31/2019 Overview: Added automatically from request for israel shelton [id number] Bilateral carotid artery stenosis 07/27/2018 Overview: Added automatically from request for israel shelton [id number] TIA (transient ischemic attack) 05/29/2018 Dialysis patient 04/18/2018 ESRD (end stage renal disease) 01/03/2018 Overview: Added automatically from request for israel shelton [id number] Diabetic polyneuropathy associated with type 2 diabete s mellitus 06/13/2015 Cancer of prostate with intermediate recurrence risk ( stage T2b-c or 11/13/2014 Debord 7 or PSA 10-20) Undiagnosed cardiac murmurs 01/05/2013 Diabetes mellitus due to underlying condition, control led, with chronic 02/26/2011 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 Utility documented as of this encounter (statuses as of 05/14/2020) Resolved Problems Problem Noted Date Resolved Date CKD (chronic kidney disease) stage 4, GFR 15-29 ml/min 06/0304/29/2018 Need for vaccination 03/30/2017 04/29/2018 Uncontrolled type 2 diabetes mellitus with stage 4 chronic 1 04/29/2018 kidney disease, with long-term current use of insulin Type 2 diabetes mellitus with diabetic chronic kidney 201403/17/2016 disease documented as of this encounter (statuses as of 05/14/2020) Immunizations Name Administration Dates Next Due Influenza [...] with No / Unsure 05/08/2020 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 documented as of this encounter Last Filed Vital Signs Vital Sign Reading Time Taken Comments Blood Pressure - - Pulse - - Temperature 36.8 C (98.3 F) 05/14/2020 1:24 PM PROCESSING OPERATOR Respiratory Rate - - Oxygen Saturation - - Inhaled Oxygen Concentration - - Weight 63 kg (138 lb 12.8 oz) 05/14/2020 1:24 PM PROCESSING OPERATOR Height 167.6 cm (5' 6") 05/14/2020 1:24 PM PROCESSING OPERATOR Body Mass Index 22.4 05/14/2020 1:24 PM PROCESSING OPERATOR documented in this encounter Progress Notes Jojo Aguilera PA-C - 05/14/2020 1:45 PM CST Otolaryngology New Patient Clinic Visit Name: Jose Combs Date: 05/14/2020 14:17 Provider: Jojo Aguilera PA-C Chief Complaint: coughing History of Present Illness: Jose Combs is a 75 year old male with ESRD, DM2 and CAD s/p CABG on 03/25/20 who is here today with his daughter in law (Adia) who assists with ecuadorean interpretation and provides majority of hishistory listed here. The patient has been coughing (described as more of a throat clearing) for a while, though more pronounced since CABG surgery last month. He expectorates clear mucus with the cough. Symptoms are worse after meals but present all day and night. He denies any wheezing, shortness of breath, dysphagia, odynophagia. He was recently started on Pantoprazole 40 mg BID and Famotidine 40mgBID for gastric ulcers. Past Medical Hx: Past Medical History: Diagnosis Date CKD (chronic kidney disease), stage V Diabetes mellitus ESRD (end stage renal disease) dialysis on [facility] since 2017 - L AVF Essential hypertension Hypercholesterolemia Hypertension Prostate cancer October 2014 Prostate cancer s/p prostatectomy S/P CABG x 2 (free MATA-LAD, 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;Dr Whitehead 03/25/2020 TIA (transient ischemic attack) Urethral stricture Urinary incontinence, mixed Past Surgical Hx: Past Surgical History: Procedure Laterality Date ANGIOPLASTY Left 03/15/2018 Surgeon: Compa Beltran; [facility] ANGIOPLASTY Left 06/28/2018 Surgeon: Compa Beltran; [facility] ANGIOPLASTY Left 12/12/2019 Surgeon: Carlos Wilkins MD; [facility] ARTERIOVENOUS FISTULA CREATION Left 01/14/2018 Surgeon: Compa Beltran; [facility]: [facility] ARTERIOVENOUS FISTULA CREATION Left 2018 Left arm BACK SURGERY 2005 BLADDER NECK INCISION N/A 03/26/2015 Surgeon: Robert To; [facility] BLADDER NECK INCISION N/A 06/19/2015 Surgeon: Robert To; [facility]: [facility] CAROTID ANGIOGRAPHY Bilateral 08/09/2018 Surgeon: Phi Perdue Jr., MD; [facility]: [facility] CORONARY ARTERY BYPASS GRAFT N/A 03/25/2020 Surgeon: Cornel Whitehead MD; [facility] CYSTOSCOPY N/A 03/25/2020 Surgeon: Keegan Valverde MD; Location[facility] ENDOSCOPIC VEIN HARVEST (SHX) Left 03/25/2020 Surgeon: Cornel Whitehead MD; [facility]: [facility] ENDOVASCULAR UPPER EXTREMITY ANGIOPLASTY Left 04/04/2019 Surgeon: Ezequiel Cazares MD; Location: [facility] ESOPHAGOGASTRODUODENOSCOPY N/A 04/09/2020 Surgeon: Nayan Sanches MD; Location: [facility] EXTRACAPSULAR CATARACT EXTRACTION WITH INTRAOCULAR LENS IMPLANT Bilateral 2011 Both eyes FISTULOGRAM Left 03/15/2018 Surgeon: Compa Beltran; Location: [facility] FISTULOGRAM Left 06/28/2018 Surgeon: Compa Beltran; Location: [facility] FISTULOGRAM Left 10/04/2018 Surgeon: Shiv Hough MD; Location: [facility] INTRAOPERATIVE FISTULOGRAM Left 04/04/2019 Surgeon: Ezequiel Cazares MD; Location: [facility] PROSTATECTOMY RADICAL RETROPUBIC PROSTATECTOMY N/A 01/08/2015 Surgeon: Robert To; Location: [facility] SPINE SURGERY 2001 Lumbar spine surgery TRANSURETHRAL INCISION OF BLADDER NECK 03/26/2015 VASCULAR STENTING Left 06/28/2018 Surgeon: Compa Beltran; Location: [facility] Social History: Social History Tobacco Use Smoking status: Former Smoker Packs/day: 1.00 Years: 15.00 Pack years: 15.00 Types: Cigarettes Quit date: 1989 Years since quittin.9 Smokeless tobacco: Never Used Substance Use Topics Alcohol use: Not Currently Comment: quit 20 yrs ago Drug use: Never Family History: Family History Problem Relation Age of Onset Coronary Heart Disease Father Diabetes Sister Hypertension Sister Diabetes Sister Diabetes Sister Stroke Father Glaucoma NoFHx Amblyopia NoFHx Retinal detachment NoFHx Macular degeneration NoFHx Strabismus NoFHx Allergies: Patient has no known allergies. Medications: Current Outpatient Medications Medication Sig ipratropium 42 mcg (0.06 %) nasal spray Use 2 Sprays in each nostril 3 (three) times daily. cloNIDine 0.1 mg tablet metoprolol tartrate 25 mg tablet Melatonin 5 mg Cap Take 5 mg/day by mouth daily. metoprolol succinate XL 50 mg 24 hr tablet Take 1 tablet by mouth daily. atorvastatin 80 mg tablet Take 1 tablet by mouth at bedtime. amLODIPine 5 mg tablet Take 1 tablet by mouth daily. aspirin 81 mg chewable tablet Take 1 tablet by mouth daily. famotidine 20 mg tablet Take 1 tablet by mouth 2 (two) times daily. furosemide 80 mg tablet Take 1 tablet by mouth daily. pantoprazole 40 mg EC tablet Take 1 tablet by mouth 2 (two) times daily. polyethylene glycol 17 gram/dose powder Take 17 g by mouth 2 (two) times daily as needed for Constipation. sodium bicarbonate 650 mg tablet Take 1 tablet by mouth 3 (three) times daily. clotrimazole 1 % topical cream Apply to area(s) 2 (two) times daily. sevelamer 800 mg tablet 2 tablets 3 (three) times daily with meals. Review of Systems Positive issues in the Review of Systems will be BOLD Constitutional: fevers, chills, sweats, fatigue, weight loss, change in appetite Eyes: vision changes, diplopia, eye pain Ears: hearing loss, otalgia, otorrhea, tinnitus, vertigo Nose: rhinorrhea, nasal congestion, epistaxis Throat: dysphagia, odynophagia, dysphonia Cardiovascular: chest pain, palpitations, dyspnea on exertion Respiratory: cough, wheeze, shortness of breath; hx asthma or COPD Gastrointestinal: nausea, vomiting, diarrhea, abdominal pain, indigestion Genitourinary: recent infections, ESRD, dysuria, oliguria Musculoskeletal: arthritis, joint pain, mobility problems Integumentary: skin infection, rashes or skin changes Neurologic: seizures, headaches, weakness Psychiatric: ADHD, anxiety, depressed mood Endocrine: thyroid problems, diabetes Hematologic: bleeding disorders, easy bruising Allergy/Immunology: food allergy, environmental allergy, immunosuppressed, eczema Physical Exam: Temp 36.8 C (98.3 F) (Tympanic) | Ht 5' 6" (1.676 m) | Wt 138 lb 12.8 oz (63 kg) | BMI 22.40 kg/m GENERAL: WDWN in NAD. Normal voice. No dyspnea or stridor. HEAD/FACE: Normocephalic, atraumatic. Facial nerve intact and bilaterally symmetric. Submandibular and parotid glands non-tender and without masses. EYES: EOMI; conjunctivae clear EARS: Auricles normal. Canals clear. TMs intact. Middle ear clear bilaterally. NOSE: no external deviation; nares patent, clear rhinorrhea, severe R septal deviation OC/OP: No trismus; oral mucosa is wnl, no mass or lesion; poor dentition, tongue soft without restriction of movement; No post-nasal drainage, tonsils present and not enlarged; uvula midline; palate intact and elevates symmetrically. NECK: Neck is supple; trachea midline; no obvious goiter or thyroid nodules appreciated. LYMPH: Unable to appreciate gross cervical lymphadenopathy. SKIN: No concerning rash, lesion, pigmentation changes on head/neck. NEUROLOGICAL: Cranial nerves II-XII grossly intact. PSYCHIATRIC: Oriented to person, place, time. Appropriate affect for age. RESPIRATORY: Good respiratory effort; symmetrical expansion of thoracic cavity. CARDIOVASCULAR: extremities well perfused. Procedures Flexible laryngoscopy: Verbal consent obtained. The nose was anesthetized with Afrin/lidocaine and scope was passed. Nose: Normal nasal mucosa, no septal spurs, no ITH, severe R septal deviation causing complete R nasal obstruction Nasopharynx: Normal eustachian tubes and fossa of Rosenmueller. No significant adenoids Oropharynx: No masses or lesions of BOT, tonsils or vallecula Supraglottis/Hypopharynx: Epiglottis normal, normal AE folds. Pooling of clear saliva in b/l pyriforms. Arytenoids non-edematous. No significant post-cricoid fullness. FVC's normal. Glottis: Atrophic vocal cords. TVC's equally mobile with phonation. Patient tolerated procedure well without complication Data Review Comprehensive data review performed DIAGNOSES: ICD-10-CM ICD-9-CM 1. Throat clearing R68.89 784.99 2. Vasomotor rhinitis J30.0 477.9 3. 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 Laryngoscopy demonstrates profuse drainage and pooling of saliva in pyriform sinuses. He is receiving maximum reflux therapy for the management of gastriculcers found on EGD 04/09. Will start Atrovent TID to help with the excessive secretions/rhinitis. Recommend MBS as well to better evaluate salivary retention and pooling. - Begin ipratropium 42 mcg (0.06 %) nasal spray; Use 2 Sprays in each nostril 3 (three) times daily. Dispense: 15 mL; Refill: 3. If unable to get in R side ok to just do left. - MOD BARIUM SWALLOW ordered, recommend patient have this after being on Atrovent for 1 month - Follow up after imaging I discussed at length the exam findings, diagnoses, and treatment options with the patient. Questions have been answered to satisfaction. Jojo Aguilera PA-C Department of Otolaryngology [facility] documented in this encounter Plan of Treatment Date Type Specialty Care Team Description 05/27/2020 Office Visit Gastroenterology Kendell Kingston MD [address] [place] [address] [phone] 05/28/2020 Office Visit Geriatric Medicine Loren Christie MD [address] [place] [address] [address] [place] [phone] 06/11/2020 Appointment Heart Station William Church MD [address] [place] [phone] Monitor, Clc-Bls Cardio Loop 06/11/2020 Appointment Echocardiograph Pc, [facility] Echo Room 2 - 07/02/2020 Office Visit Otolaryngology Jimmy Aguilera PA-C [address] [place] [address] [phone] 08/21/2020 Office Visit [facility] William Church MD [address] [facility] [address] [place], [place] [phone] Name Type Priority Associated Diagnoses Order S chedule MOD BARIUM IMAGING Routine Pharyngoesophage al dysphagia Expected: SWALLOW, (COOKIE) Throat clearing 020, Expires: 05/14/2021 Health Maintenance Due Date Last Done Comments [...] of this encounter Implants Implanted Type Area Starting Gate Driver Device Shelf Model / Identifier Expiration Serial / Date Lot Lutonix .035 4mm X 40mm X 75cm 5fr Bard#[id number] - Sn/A Balloo n Left: Arm Bard 07/30/2020 [id number] / Implanted: Qty: 1 on 03/15/2018 by Compa Catherine MD at [facility] N/A / [id number] Angio-Seal Evolution Vascular Closure Device [employer] M edical #[id number] - S0 OCCLUSION Right: Terumo 09/20/2018 [id number] / Implanted: Qty: 1 on 08/09/2018 by Phi Perdue Jr., MD at [facility] DEVICE Groin 0 / [id number] Stent, Wayne [id number] Viabahn Vasc 120cm Cath #[id number] - S [id number] STENT Left: Arm W L Wayne 02/01/2021 [id number] / Implanted: Qty: 1 on 06/28/2018 by Compa Catherine MD at [facility] [id number] / NA documented as of this encounter Procedures Procedure Name Priority Date/Time Associated Diagnosis Comme nts FLEXIBLE SCOPE ENT Routine 05/14/2020 Throat clearing documented in this encounter Results Not on filedocumented in this encounter Visit Diagnoses Diagnosis Throat clearing - Primary Other symptoms involving head and neck Vasomotor rhinitis Allergic rhinitis, cause unspecified Pharyngoesophageal dysphagia Dysphagia, pharyngoesophageal phase Presbylarynges Other diseases of larynx documented in this encounter Insurance Payer Benefit Plan / Subscriber ID Effective Dates Phone Addre ss Type Group MEDICARE MEDICARE PART [id number] 2003-[id number] 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
--- OUTSIDE RECORDS SUMMARY | 2020-05-30 21:43 | XMS REPORT | Summary of Care ---
:1945 Author Organization [facility] Address [address] [place] [address] Care Team Providers Name Role Phone Loren Christie MD Unavailable Estephania Dsouza DO Unavailable LEONARDO James Unavailable Pcp-Lab Unavailable Unavailable DEISY Winn Unavailable Edi Christie MD Primary Care Provider Reason for Visit Reason Comments LAB covid swab Encounter Details Date Type Department Care Team Description 05/21/2020 Laboratory Only [facility] Fiorella Summers MD [address] [place] [address] Exposure to CLINICS LAB Only, Pcp Test SARS-associated Primary Care Stefani griffith coronavirus (Primary [address] Dx) [place] [address] Allergies No Known Allergiesdocumented as of this encounter (statuses as of 05/21/2020) Medications Medication Sig Dispensed Refills Start Date [...] as of this encounter (statuses as of 05/21/2020) Active Problems Problem Noted Date Upper GI bleed 04/08/2020 Heart failure 03/29/2020 S/P CABG x 2 (free MATA-LAD, 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;Dr Cyn gill 03/25/2020 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 ESRD (end stage renal disease) 03/19/2020 Dialysis patient 03/19/2020 Essential hypertension 03/19/2020 Dyspnea 2020 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 05/02/2019 Malfunction of arteriovenous dialysis fistula, initial encounter 03/31/2019 Overview: Added automatically from request for israel peoples [id number] Bilateral carotid artery stenosis 07/27/2018 Overview: Added automatically from request for israel peoples [id number] TIA (transient ischemic attack) 05/29/2018 Dialysis patient 04/18/2018 ESRD (end stage renal disease) 01/03/2018 Overview: Added automatically from request for israel peoples [id number] Diabetic polyneuropathy associated with type 2 diabete s mellitus 06/13/2015 Cancer of prostate with intermediate recurrence risk ( stage T2b-c or 11/13/2014 [place] 7 or PSA 10-20) Undiagnosed cardiac murmurs 01/05/2013 Diabetes mellitus due to underlying condition, control led, with chronic 02/26/2011 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 Essential hypertension, benign 02/26/2011 HLD (hyperlipidemia) 02/26/2011 Overview: ICD10 Diagnosis Term Marine Steward Utility Backache 08/05/2006 Overview: Lower back pain - totally disabled ICD10 Diagnosis Term Marine Steward Utility Hearing loss 08/05/2006 Overview: Both ears ICD10 Diagnosis Term Marine Steward Utility documented as of this encounter (statuses as of 05/21/2020) Resolved Problems Problem Noted Date Resolved Date CKD (chronic kidney disease) stage 4, GFR 15-29 ml/min 06/0304/29/2018 Need for vaccination 03/30/2017 04/29/2018 Uncontrolled type 2 diabetes mellitus with stage 4 chronic 1 04/29/2018 kidney disease, with long-term current use of insulin Type 2 diabetes mellitus with diabetic chronic kidney 201403/17/2016 disease documented as of this encounter (statuses as of 05/21/2020) Immunizations Name Administration Dates Next Due Influenza [...] with No / Unsure 05/08/2020 3:26 PM UNDERWEAR WELTER someone who was confirmed or suspected to have 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 documented as of this encounter Last Filed Vital Signs Not on filedocumented in this encounter Nursing Notes Margarita Bah MA - 05/21/2020 8:00 AM CSTArtgrecia Combs is a 75 year old male here for a Pre-op or Rule Out Covid-19 Nasopharyngeal Swab. Patient educated on plan of care for visit, swabbing technique, risks and benefits of test and length oftime to receive results. Verbal consent obtained to perform test. CDC Fact Sheet for Patients provided to patient. Patient swabbed using appropriate nasopharyngeal technique, and patient tolerated well. Patient was discharged in stable condition. documented in this encounter Plan of Treatment Date Type Specialty Care Team Description 06/11/2020 Appointment Heart Station William Church MD [address] [place] [address] Monitor, [employer]-[facility] Cardio Loop 06/11/2020 Appointment Echocardiograph Pc, [facility] Echo Room 2 - 06/17/2020 Office Visit Geriatric Medicine Loren Christie MD 301 [facility] [address] [place], [place] [address] 06/25/2020 Ancillary Visit Speech-Language Rajwinder Arnett, PHD 301 [facility] [id number] [place], [place] [phone] Pathologist Cornel Avila Modified Barium 06/25/2020 Appointment Radiology Jojo Aguilera PA-C [address] [place] [address] 07/02/2020 Office Visit Otolaryngology Jojo Aguilera PA-C [address] [place] [address] 08/21/2020 Office Visit Cardiology William Church MD [address] [facility] [address] [address] [place] [address] Name Type Priority Associated Diagnoses Order S chedule COVID-19 (MOLECULAR LAB Routine Exposure to SARS-asso ciated Ordered: 05/21/2020 TESTING coronavirus NUCLEIC ACID AMPLIFICATION) Health Maintenance Due Date Last Done Comments [...] of this encounter Implants Implanted Type Area Terrazzo Finisher Helper Device Shelf Model / Identifier Expiration Serial / Date Lot Lutonix .035 4mm X 40mm X 75cm 5fr [id number] - Sn/A Balloo n Left: Arm Bard 07/30/2020 [id number] / Implanted: Qty: 1 on 03/15/2018 by Compa Catherine MD at [facility] N/A / [id number] Angio-Seal Evolution Vascular Closure Device [place] M edical #[id number] - S0 OCCLUSION Right: Terumo 09/20/2018 [id number] / Implanted: Qty: 1 on 08/09/2018 by Phi Perdue Jr., MD at [facility] DEVICE Groin 0 / [id number] Stent, [place] [id number] Viabahn Vasc 120cm Cath #[id number] - S [id number] STENT Left: Arm W L [place] 02/01/2021 [id number] / Implanted: Qty: 1 on 06/28/2018 by Compa Catherine MD at [facility] [id number] / NA documented as of this encounter Results Not on filedocumented in this encounter Visit Diagnoses Diagnosis Exposure to SARS-associated coronavirus - Primary documented in this encounter Additional Health Concerns Infection Onset Date Last Indicated Resolved Time COVID-19 Rule Out 05/21/2020 05/21/2020 documented as of this encounter Insurance Payer Benefit Plan / Subscriber ID Effective Dates Phone Addre ss Type Group MEDICARE MEDICARE PART [id number] 2003-[place] [phone] [address] Medicare A & B 2 [id number] [place] [address] [facility] MEDICAID OF [id number] 2016-[place] [phone] [address] Medicaid [place] t 0 [id number] [place] [address] documented as of this encounter Advance Directives Type Date Recorded Patient Pharmacy Technician Infusion Explanati on Advance Directives and Living 01/25/2015 10:11 AM Will Power of Accounts Payable Coordinator 01/25/2015 10:11 AM
--- OUTSIDE RECORDS SUMMARY | 2020-05-30 21:43 | XMS REPORT | Summary of Care ---
:1945 Author Organization [facility] Address [address] [place] [address] Care Team Providers Name Role Phone Loren Christie MD Unavailable Estephania Dsouza DO Unavailable LEONARDO James Unavailable Pcp-Lab Unavailable Unavailable DEISY Winn Unavailable Ishmael Christie MD Primary Care Provider Reason for Referral (Routine) Status Reason Specialty Diagnoses / Referred By Referred To Procedures Contact Contact New Request Speech-Language Diagnoses Throat clearing Willy, Pathologist Procedures CONSULT SPEECH Jojo Cisneros PA-C [address] [place] [address] (Routine) Status Reason Specialty Diagnoses / Referred By Referred To Procedures Contact Contact New Request Diagnostic Diagnoses Pharyngoesophageal dysphagia Throat clearing Willy, Radiology Procedures MOD BARIUM SWALLOW, (KRISTOFER) Jojo Cisneros PA-C [address] [place] [address] Reason for Visit Reason Comments New Evaluation cough (Routine) Status Reason Specialty Diagnoses / Procedures Referred By Maxi soto To Contact Contact Closed Otolaryngology Diagnoses Cough William Church MD Procedures CONSULT OTOLARYNGOLOGY [address] [place] [address] Encounter Details Date Type Department Care Team Description 05/14/2020 Office Visit [facility] Ear, Aguilera, Throat mesha jose (Primary Dx); Nose & Throat Jojo Cisneros, Vasomotor rhinitis; Consultants- JACOB Pharyngoesophageal dysphagia ; [place] [address] Presbylarynges [address] [place] [place] [address] 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 05/02/2019 Malfunction of arteriovenous dialysis fistula, initial encounter 03/31/2019 Overview: Added automatically from request for [place]rael [place] [id number] Bilateral carotid artery stenosis 07/27/2018 Overview: Added automatically from request for [place]rael [place] [id number] TIA (transient ischemic attack) 05/29/2018 Dialysis patient 04/18/2018 ESRD (end stage renal disease) 01/03/2018 Overview: Added automatically from request for israel [place] [id number] Diabetic polyneuropathy associated with type 2 diabete s mellitus 06/13/2015 Cancer of prostate with intermediate recurrence risk ( stage T2b-c or 11/13/2014 [place] 7 or PSA 10-20) Undiagnosed cardiac murmurs 01/05/2013 Diabetes mellitus due to underlying condition, control led, with chronic 02/26/2011 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 documented as of this encounter Last Filed Vital Signs Vital Sign Reading Time Taken Comments Blood Pressure - - Pulse - - Temperature 36.8 C (98.3 F) 05/14/2020 1:24 PM ASSISTANT MANAGER Respiratory Rate - - Oxygen Saturation - - Inhaled Oxygen Concentration - - Weight 63 kg (138 lb 12.8 oz) 05/14/2020 1:24 PM ASSISTANT MANAGER Height 167.6 cm (5' 6") 05/14/2020 1:24 PM ASSISTANT MANAGER Body Mass Index 22.4 05/14/2020 1:24 PM ASSISTANT MANAGER documented in this encounter Progress Notes Jojo [...] daughter in law (Adia) who assists with greek interpretation and provides majority of hishistory listed [...] ESRD (end stage renal disease) dialysis on [facility] since 2017 - L AVF Essential hypertension Hypercholesterolemia Hypertension Prostate cancer October 2014 Prostate cancer s/p prostatectomy S/P CABG x 2 (free MATA-LAD, 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;Dr Whitehead 03/25/2020 TIA (transient ischemic attack) Urethral stricture Urinary incontinence, mixed Past Surgical Hx: Past Surgical History: Procedure Laterality Date ANGIOPLASTY Left 03/15/2018 Surgeon: Compa Beltran; [facility] ANGIOPLASTY Left 06/28/2018 Surgeon: Compa Beltran; [facility] ANGIOPLASTY Left 12/12/2019 Surgeon: Carlos Wilkins MD; Location: [facility] ARTERIOVENOUS FISTULA CREATION Left 01/14/2018 [...] 04/04/2019 Surgeon: Ezequiel Cazares MD; Location: [facility] ESOPHAGOGASTRODUODENOSCOPY N/A 04/09/2020 Surgeon: Nayan [...] satisfaction. Jojo Aguilera PA-C Department of Otolaryngology [facility] documented in this encounter Plan of Treatment Date Type Specialty Care Team Description 05/27/2020 Office Visit Gastroenterology Kendell Kingston MD [address] [place] [phone] 05/28/2020 Office Visit Geriatric Medicine Loren Christie MD [address] [place] [address] [address] [place] [address] 06/11/2020 Appointment Heart Station William Church MD [address] [place] [phone] Monitor, [facility]-B[facility] Cardio Loop 06/11/2020 Appointment Echocardiograph Pc, [facility] Echo Room 2 - 07/02/2020 Office Visit Otolaryngology Jimmy Aguilera PA-C [address] [place] [phone] 08/21/2020 Office Visit Cardiology William Church MD [address] [facility] [address] [place], [place] [phone] Name Type Priority Associated [...] of this encounter Implants Implanted Type Area Senior Information Systems Architect Device Shelf Model / Identifier Expiration Serial / Date Lot Lutonix .035 4mm X 40mm X 75cm 5fr [place]#[id number] - Sn/A Balloo n Left: Arm Bard 07/30/2020 [id number] / Implanted: Qty: 1 on 03/15/2018 by Compa Catherine MD at [facility] N/A / [id number] Angio-Seal Evolution Vascular Closure Device [employer] Igles[place] M edical #[id number] - S0 OCCLUSION Right: Terumo 09/20/2018 [id number] / Implanted: Qty: 1 on 08/09/2018 by Phi Perdue Jr., MD at [facility] DEVICE Groin 0 / [id number] Stent, [place] [id number] Viabahn Vasc 120cm Cath #[id number] - S [id number] STENT Left: Arm W L [place] 02/01/2021 [id number] / Implanted: Qty: 1 on 06/28/2018 by Compa Catherine MD at [facility] [id number] / NA documented as of this encounter [...] Addre ss Type Group MEDICARE MEDICARE PART [id number] 2003-[place] [phone] 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
--- OUTSIDE RECORDS SUMMARY | 2020-05-30 21:44 | XMS REPORT | Summary of Care ---
:1945 Author Organization [facility] Address [address] [place] [address] Care Team Providers Name Role Phone Loren Christie MD Unavailable Estephania Dsouza DO Unavailable LEONARDO James Unavailable Pcp-Lab Unavailable Unavailable DEISY Winn Unavailable Edi Christie MD Primary Care Provider Reason for Visit Reason Comments Talk To Nurse Encounter Details Date Type Department Care Team Description 05/22/2020 Telephone [facility] Geriatrics- Loren Christie MD Talk To Nurse [address] [id number] Primary [place] [address] [place] [address], [address] [place] [address] Allergies No Known Allergiesdocumented as of this encounter (statuses as of 05/22/2020) Medications Medication Sig Dispensed Refills Start Date [...] as of this encounter (statuses as of 05/22/2020) Active Problems Problem Noted Date Upper GI bleed 04/08/2020 Heart failure 03/29/2020 S/P CABG x 2 (free MATA-LAD, 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;Dr Cyn gill 03/25/2020 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/19/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 ESRD (end stage renal disease) 03/19/2020 Dialysis patient 03/19/2020 Essential hypertension 03/19/2020 Dyspnea 2020 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 05/02/2019 Malfunction of arteriovenous dialysis fistula, initial encounter 03/31/2019 Overview: Added automatically from request for israel peoples [id number] Bilateral carotid artery stenosis 07/27/2018 Overview: Added automatically from request for israel peoples [id number] TIA (transient ischemic attack) 05/29/2018 Dialysis patient 04/18/2018 ESRD (end stage renal disease) 01/03/2018 Overview: Added automatically from request for israel peoples [id number] Diabetic polyneuropathy associated with type 2 diabete s mellitus 06/13/2015 Cancer of prostate with intermediate recurrence risk ( stage T2b-c or 11/13/2014 [place] 7 or PSA 10-20) Undiagnosed cardiac murmurs 01/05/2013 Diabetes mellitus due to underlying condition, control led, with chronic 02/26/2011 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 Essential hypertension, benign 02/26/2011 HLD (hyperlipidemia) 02/26/2011 Overview: ICD10 Diagnosis Term Director Global Utility Backache 08/05/2006 Overview: Lower back pain - totally disabled ICD10 Diagnosis Term Director Global Utility Hearing loss 08/05/2006 Overview: Both ears ICD10 Diagnosis Term Director Global Utility documented as of this encounter (statuses as of 05/22/2020) Resolved Problems Problem Noted Date Resolved Date CKD (chronic kidney disease) stage 4, GFR 15-29 ml/min 06/0304/29/2018 Need for vaccination 03/30/2017 04/29/2018 Uncontrolled type 2 diabetes mellitus with stage 4 chronic 1 04/29/2018 kidney disease, with long-term current use of insulin Type 2 diabetes mellitus with diabetic chronic kidney 201403/17/2016 disease documented as of this encounter (statuses as of 05/22/2020) Immunizations Name Administration Dates Next Due Influenza [...] with No / Unsure 05/08/2020 3:26 PM COMEDIAN someone who was confirmed or suspected to have 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 documented as of this encounter Last Filed Vital Signs Not on filedocumented in this encounter Miscellaneous Notes Telephone Encounter - Macho James GNP - 05/22/2020 4:33 PM CSTSpoke to Eliana- all in house are positive- eliana and her have cough/fever Mr. Combs -no symptoms except cough- robitussin not really helping - not been using zyrtec Dialysis in [place] as where all covid + Mrs Casillas- negative- no symptoms Will monitor for now Not to worry keep them apart elephone Encounter - Mackenzie Beal LVN - 05/22/2020 2:03 PM CSTSpoke with RODOLFO CASILLAS states father in law has tested positive for Covid, he is not having any symptoms other than cough. States patient is on dialysis and is concern the cough can affect him with his dialysis. Also tested negative for Covid but has dementia and doesn't know what she can do to keep them apart. Please advise. elephone Encounter - Bri Napire - 05/22/2020 8:59 AM CSTPt's called stating has tested positive for Covid. States he does have a cough but no fever Wanted to notify Macho. Wants to talk to Nurse. Has questions. documented in this encounter Plan of Treatment Date Type Specialty Care Team Description 06/11/2020 Appointment Heart Station William Church MD [address] [place] [address] Monitor, [facility]-Bls Cardio Loop 06/11/2020 Appointment Echocardiograph Pc, [facility] Echo Room 2 - 06/17/2020 Office Visit Geriatric Medicine Loren Christie MD 301 [facility] [address] [place], [place] [address] 06/25/2020 Ancillary Visit Speech-Language Rajwinder Arnett, PHD 301 [facility] [address] [place], [place] [phone] Pathologist Swallows, Gal Speech Modified Barium 06/25/2020 Appointment Radiology Jojo Aguilera PA-C [address] [place] [address] 07/02/2020 Office Visit Otolaryngology Jojo Aguilera PA-C [address] [place] [address] 08/21/2020 Office Visit Cardiology William Church MD [address] [place] [address] Health Maintenance Due Date Last Done Comments [...] of this encounter Implants Implanted Type Area Mechanical Design Technician Device Shelf Model / Identifier Expiration Serial / Date Lot Devonteix Genny035 4mm X 40mm X 75cm 5fr Bard#[id number] - Sn/A Balloo n Left: Arm Bard 07/30/2020 [id number] / Implanted: Qty: 1 on 03/15/2018 by Compa Catherine MD at [facility] N/A / [id number] Angio-Seal Evolution Vascular Closure Device [place] M edical #[id number] - S0 OCCLUSION Right: Terumo 09/20/2018 [id number] / Implanted: Qty: 1 on 08/09/2018 by Phi Perdue Jr., MD at [facility] DEVICE Groin 0 / [id number] Stent, [place] [id number] Viabahn Vasc 120cm Cath #[id number] - S [id number] STENT Left: Arm W L [place] 02/01/2021 [id number] / Implanted: Qty: 1 on 06/28/2018 by Compa Catherine MD at [facility] [id number] / NA documented as of this encounter Results Not on filedocumented in this encounter Additional Health Concerns Infection Onset Date Last Indicated Resolved Time COVID-19 Confirmed 05/21/2020 05/21/2020 documented as of this encounter Insurance Payer Benefit Plan / Subscriber ID Effective Dates Phone Addre ss Type Group MEDICARE MEDICARE PART [id number] 2003-[place] [phone] 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
--- OUTSIDE RECORDS SUMMARY | 2020-05-30 21:44 | XMS REPORT | Summary of Care ---
:1945 Author Organization [facility] Address [address] [place] [address] Care Team Providers Name Role Phone Loren Christie MD Unavailable Estephania Dsouza DO Unavailable LEONARDO James Unavailable Pcp-Lab Unavailable Unavailable DEISY Winn Unavailable Edi Christie MD Primary Care Provider Encounter Details Date Type Department Care Team Description 05/23/2020 Letter (Out) ACCESS [facility] Michelle Stoll RN [address] [place] [phone] [place] [address] Allergies No Known Allergiesdocumented as of this encounter (statuses as of 05/23/2020) Medications Medication Sig Dispensed Refills Start Date [...] as of this encounter (statuses as of 05/23/2020) Active Problems Problem Noted Date Upper GI bleed 04/08/2020 Heart failure 03/29/2020 S/P CABG x 2 (free MATA-LAD, 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;Dr Cyn gill 03/25/2020 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 ry 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/19/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 ESRD (end stage renal disease) 03/19/2020 Dialysis patient 03/19/2020 Essential hypertension 03/19/2020 Dyspnea 2020 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 05/02/2019 Malfunction of arteriovenous dialysis fistula, initial encounter 03/31/2019 Overview: Added automatically from request for israel peoples [id number] Bilateral carotid artery stenosis 07/27/2018 Overview: Added automatically from request for [place] peoples [id number] TIA (transient ischemic attack) 05/29/2018 Dialysis patient 04/18/2018 ESRD (end stage renal disease) 01/03/2018 Overview: Added automatically from request for is[place] peoples [id number] Diabetic polyneuropathy associated with type 2 diabete s mellitus 06/13/2015 Cancer of prostate with intermediate recurrence risk ( stage T2b-c or 11/13/2014 [place] 7 or PSA 10-20) Undiagnosed cardiac murmurs 01/05/2013 Diabetes mellitus due to underlying condition, control led, with chronic 02/26/2011 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 Essential hypertension, benign 02/26/2011 HLD (hyperlipidemia) 02/26/2011 Overview: ICD10 Diagnosis Term Concrete Float Maker Utility Backache 08/05/2006 Overview: Lower back pain - totally disabled ICD10 Diagnosis Term Concrete Float Maker Utility Hearing loss 08/05/2006 Overview: Both ears ICD10 Diagnosis Term Concrete Float Maker Utility documented as of this encounter (statuses as of 05/23/2020) Resolved Problems Problem Noted Date Resolved Date CKD (chronic kidney disease) stage 4, GFR 15-29 ml/min 06/0304/29/2018 Need for vaccination 03/30/2017 04/29/2018 Uncontrolled type 2 diabetes mellitus with stage 4 chronic 1 04/29/2018 kidney disease, with long-term current use of insulin Type 2 diabetes mellitus with diabetic chronic kidney 201403/17/2016 disease documented as of this encounter (statuses as of 05/23/2020) Immunizations Name Administration Dates Next Due Influenza [...] with No / Unsure 05/08/2020 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 documented as of this encounter Last Filed Vital Signs Not on filedocumented in this encounter Plan of Treatment Date Type Specialty Care Team Description 06/11/2020 Appointment Heart Station William Church MD [address] [place] [phone] Monitor, [employer]-Bls Cardio Loop 06/11/2020 Appointment Echocardiograph Pc, [employer]-Bls Echo Room 2 - 06/17/2020 Office Visit Geriatric Medicine Loren Christie MD 301 [facility] [address] [place], [place] [address] 06/25/2020 Ancillary Visit Speech-Language Rajwinder Arnett, PHD 301 [facility] [id number] [place], [place] [phone] Pathologist Cornel Avila Modified Barium 06/25/2020 Appointment Radiology Jojo Aguilera PA-C 301 [place] [phone] 07/02/2020 Office Visit Otolaryngology Jojo Aguilera PA-C 301 [place] [address] 08/21/2020 Office Visit Cardiology William Church MD [facility] [address] [place] [phone] Health Maintenance Due Date Last Done [...] of this encounter Implants Implanted Type Area Sliver Lapper Device Shelf Model / Identifier Expiration Serial / Date Lot Lutonix .035 4mm X 40mm X 75cm 5fr [id number] - Sn/A Balloo n Left: Arm Bard 07/30/2020 [id number] / Implanted: Qty: 1 on 03/15/2018 by Compa Catherine MD at [facility] N/A / [id number] Angio-Seal Evolution Vascular Closure Device [employer] M edical #[id number] - S0 OCCLUSION Right: Terumo 09/20/2018 [id number] / Implanted: Qty: 1 on 08/09/2018 by Phi Perdue Jr., MD at [facility] DEVICE Groin 0 / [id number] Stent, [place] [id number] Viabahn Vasc 120cm Cath #[id number] - S [id number] STENT Left: Arm W L [place] 02/01/2021 [id number] / Implanted: Qty: 1 on 06/28/2018 by Compa Catherine MD at [facility] [id number] / NA documented as of this encounter Results Not on filedocumented in this encounter Additional Health Concerns Infection Onset Date Last Indicated Resolved Time COVID-19 Confirmed 05/21/2020 05/21/2020 documented as of this encounter Insurance Payer Benefit Plan / Subscriber ID Effective Dates Phone Addre ss Type Group MEDICARE MEDICARE PART [id number] 2003-[place] 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
--- OUTSIDE RECORDS SUMMARY | 2020-05-30 21:44 | XMS REPORT | Summary of Care ---
:1945 Author Organization [facility] Address [address] [place] [address] Care Team Providers Name Role Phone Loren Christie MD Unavailable Estephania Dsouza DO Unavailable LEONARDO James Unavailable Pcp-Lab Unavailable Unavailable DEISY Winn Unavailable Edi Christie MD Primary Care Provider Encounter Details Date Type Department Care Team Description 05/30/2020 Patient [facility] Internal [place], Car Medicine [facility] DO [facility] n [address] [place] [address] [id number] [address], [place] [address] [address] [place] [address] [phone] Allergies No Known Allergiesdocumented as of this encounter (statuses as of 05/30/2020) Medications Medication Sig Dispensed Refills Start Date [...] as of this encounter (statuses as of 05/30/2020) Active Problems Problem Noted Date Upper GI bleed 04/08/2020 Heart failure 03/29/2020 S/P CABG x 2 (free MATA-LAD, 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;Dr Cyn gill 03/25/2020 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/19/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 ESRD (end stage renal disease) 03/19/2020 Dialysis patient 03/19/2020 Essential hypertension 03/19/2020 Dyspnea 2020 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 05/02/2019 Malfunction of arteriovenous dialysis fistula, initial encounter 03/31/2019 Overview: Added automatically from request for is[place] peoples [id number] Bilateral carotid artery stenosis 07/27/2018 Overview: Added automatically from request for [place] peoples [id number] TIA (transient ischemic attack) 05/29/2018 Dialysis patient 04/18/2018 ESRD (end stage renal disease) 01/03/2018 Overview: Added automatically from request for is[place] peoples [id number] Diabetic polyneuropathy associated with type 2 diabete [...] HLD (hyperlipidemia) 02/26/2011 Overview: ICD10 Diagnosis Term Flower Grader Utility Backache 08/05/2006 Overview: Lower back pain - totally disabled ICD10 Diagnosis Term Flower Grader Utility Hearing loss 08/05/2006 Overview: Both ears ICD10 Diagnosis Term Flower Grader Utility documented as of this encounter (statuses as of 05/30/2020) Resolved Problems Problem Noted Date Resolved Date CKD (chronic kidney disease) stage 4, GFR 15-29 ml/min 06/0304/29/2018 Need for vaccination 03/30/2017 04/29/2018 Uncontrolled type 2 diabetes mellitus with stage 4 chronic 1 04/29/2018 kidney disease, with long-term current use of insulin Type 2 diabetes mellitus with diabetic chronic kidney 201403/17/2016 disease documented as of this encounter (statuses as of 05/30/2020) Immunizations Name Administration Dates Next Due Influenza [...] with No / Unsure 05/08/2020 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 documented as of this encounter Last Filed Vital Signs Not on filedocumented in this encounter Plan of Treatment Date Type Specialty Care Team Description 05/31/2020 Telemedicine Visit Geriatric Medicine Loren Christie MD [address] [address] 06/11/2020 Appointment Heart Station William Cuhrch MD 1005 [facility] [address] [place] [address] Monitor, [employer]Bls Cardio Loop 06/11/2020 Appointment Echocardiograph Pc, [employer]Idea Showers Echo Room 2 - 06/17/2020 Office Visit Geriatric Medicine Loren Christie MD [address] [address] 06/25/2020 Ancillary Visit Speech-Language Rajwinder Arnett, PHD 301 [facility] [id number] [place] [phone] Pathologist Cornel Avila Modified Barium 06/25/2020 Appointment Radiology Jojo Aguilera PA-C 301 [place] [phone] 07/02/2020 Office Visit Otolaryngology Jojo Aguilera PA-C 301 [place] [address] 07/15/2020 Office Visit Gastroenterology Kendell Kingston MD [address] [place] [phone] 08/21/2020 Office [place] [address] [place] [address] [address] [place] [phone] Health Maintenance Due Date Last Done Comments [...] of this encounter Implants Implanted Type Area Provider Relations Specialist Device Shelf Model / Identifier Expiration Serial / Date Lot Lutonix .035 4mm X 40mm X 75cm 5fr Bard#[id number] - Sn/A Balloo n Left: Arm Bard 07/30/2020 [id number] / Implanted: Qty: 1 on 03/15/2018 by Compa Catherine MD at [facility] N/A / [id number] Angio-Seal Evolution Vascular Closure Device [employer] M edical #[id number] - S0 OCCLUSION Right: Terumo 09/20/2018 [id number] / Implanted: Qty: 1 on 08/09/2018 by Phi Perdue Jr., MD at [facility] DEVICE Groin 0 / [id number] Stent, [place] [id number] Viabahn Vasc 120cm Cath #[id number] - S [id number] STENT Left: Arm W L [place] 02/01/2021 [id number] / Implanted: Qty: 1 on 06/28/2018 by Compa Catherine MD at [facility] [id number] / NA documented as of this encounter Results Not on filedocumented in this encounter Additional Health Concerns Infection Onset Date Last Indicated Resolved Time COVID-19 Confirmed 05/21/2020 05/21/2020 documented as of this encounter Insurance Payer Benefit Plan / Subscriber ID Effective Dates Phone Addre ss Type Group MEDICARE MEDICARE PART [id number] 2003-Prese [phone] [address] Medicare A & B 2 [id number] [place] [address] [facility] MEDICAID OF [id number] 2016-Preseul[place] [phone] [address] Medicaid [place] t 0 [id number] [place] [address] documented as of this encounter Advance Directives Type Date Recorded Patient Yam Curer Explanati on Advance Directives and Living 01/25/2015 10:11 AM Will Power of Business Analyst Ecommerce 01/25/2015 10:11 AM
[2020-05-30 23:04] LABS: Absolute Lymphocytes (CBC) 0.3 K/uL (0.7-4.9); Basophils % 0.2 % (0-1.3); Hematocrit 36.9 % (39.6-49.0); Lymphocytes % 7.4 % (15.3-44.8); MPV 9.5 fL (7.6-11.3); RBC Red Blood Cell Count 4.21 M/uL (4.33-5.43)
[2020-05-30 23:09] LABS: Protime INR 0.97
[2020-05-30 23:18] LABS: Albumin 3.2 g/dL (3.4-5.0); Bilirubin Direct 0.1 mg/dL (0-0.2); Bilirubin Total 0.5 mg/dL (0.2-1.0); Ferritin 1719.2 ng/mL (26-388); Potassium 3.9 mmol/L (3.5-5.1); Protein, Total 7.8 g/dL (6.4-8.2); Troponin (Emerg Dept Use Only) 0.03 ng/mL (0.0-0.045)
--- NOTE | 2020-05-30 23:28 | ER ---
Nurse's Notes [facility] Name: Jose Combs Age: 75 yrs Sex: Male : 1945 Arrival Date: 05/30/2020 Time: 21:51 Bed 19 Private MD: Diagnosis: Coronavirus infection, unspecified;Dyspnea Presentation: 05/30 21:59 Chief complaint: EMS states: Pt was in HD C/O SOB and , per staff O2 was at 88% on wh 2LNC, EMS was called. Per EMS Pt was satting at 94% on RA. Pt was Covid Positive 2 weeks ago. Coronavirus screen: Client denies travel out of the [place] in the last 14 days. difficulty breathing, shortness of breath, Client presents with at least one sign or symptom that may indicate coronavirus-19. Standard/surgical mask placed on the client. Client reports previous positive COVID test result. Ebola Screen: Patient negative for fever greater than or equal to 101.5 degrees Fahrenheit, and additional compatible Ebola Virus Disease symptoms Patient denies exposure to infectious person. Initial Sepsis Screen: Does the patient meet any 2 criteria? RR > 20 per min. HR > 90 bpm. Yes Does the patient have a suspected source of infection? Yes: Other: Covid Positive. Risk Assessment: Do you want to hurt yourself or someone else? Patient reports no desire to harm self or others. Onset of symptoms was May 30, 2020. 21:59 Method Of Arrival: EMS: [facility] 21:59 Acuity: SOL 3 Triage Assessment: 22:30 General: Appears in no apparent distress. Behavior is calm, cooperative, appropriate for age. Historical: - Allergies: 22:04 No Known Allergies; - PMHx: 22:04 Diabetes - NIDDM; ESRD; Hypertension; CHF; Bleeding Ulcers; - PSHx: 22:04 Bypass; 22:04 Prostate Surgery; - Immunization history:: Adult Immunizations up to date. - Social history:: Smoking status: Patient/guardian denies using. Screenin:04 Abuse screen: Denies threats or abuse. Denies injuries from another. Nutritional wh screening: No deficits noted. Tuberculosis screening: No symptoms or risk factors identified. Fall Risk None identified. Assessment: 22:30 General: Appears in no apparent distress. Behavior is calm, cooperative, appropriate for age. Pain: Denies pain. Neuro: Level of Consciousness is awake, alert, obeys commands, Oriented to person, place, time, situation, Appropriate for age. Cardiovascular: Heart tones S1 S2. Respiratory: Reports shortness of breath cough that is labored breathing. Respiratory: Airway is patent Respiratory effort is even, Respiratory pattern is regular, symmetrical, tachypnea Breath sounds are clear bilaterally. GI: Abdomen is flat, non-distended. : No signs and/or symptoms were reported regarding the genitourinary system. EENT: No signs and/or symptoms were reported regarding the EENT system. Derm: Skin is intact, is healthy with good turgor, Skin is pink, warm \T\ dry. normal. Musculoskeletal: Circulation, motion, and sensation intact. 23:30 Reassessment: Patient appears in no apparent distress at this time. No changes from previously documented assessment. Patient and/or family updated on plan of care and expected duration. Pain level reassessed. Patient is alert, oriented x 3, equal unlabored respirations, skin warm/dry/pink. 05/31 00:30 Reassessment: Patient appears in no apparent distress at this time. Patient and/or family updated on plan of care and expected duration. Pain level reassessed. Patient is alert, oriented x 3, equal unlabored respirations, skin warm/dry/pink. Vital Signs: 05/30 21:59 BP 192 / 81; Pulse 105; Resp 24; Temp 99.2; Pulse Ox 94% on R/A; Weight 62.6 kg; Height 5 ft. 6 in. (167.64 cm); 22:30 BP 159 / 74; Pulse 105; Resp 20; Pulse Ox 97% on R/A; wh 23:30 BP 147 / 73; Pulse 104; Resp 20; Pulse Ox 96% on R/A; 21:59 Body Mass Index 22.27 (62.60 kg, 167.64 cm) ED Course: 21:51 Patient arrived in ED. mw2 21:53 Rahel Weaver FNP-C [facility]. kb 21:53 Juan Osborn MD is Attending Physician. kb 21:58 Jennifer Sanches is Primary Nurse. wh 22:02 Triage completed. 22:04 Patient has correct armband on for positive identification. Placed in gown. Bed in low wh position. Call light in reach. Side rails up X 1. school bus monitor on. Pulse ox on. NIBP on. 22:04 Arm band placed on right wrist. :08 CXR XRAY In Process Unspecified. EDMS 23:00 Inserted saline lock: 20 gauge in right antecubital area, using aseptic technique. Blood collected. 23:28 Isak Flor MD is Hospitalizing Provider. kb 23:28 Hospitalizing Provider role handed off by Isak Flor MD kb 23:28 Matteo Flor MD is Hospitalizing Provider. kb 05/31 00:38 No provider procedures requiring assistance completed. IV discontinued, intact, wh bleeding controlled, No redness/swelling at site. Administered Medications: 00:15 Drug: Decadron - Dexamethasone 10 mg Route: IVP; Site: right antecubital; 00:41 Follow up: Response: No adverse reaction Outcome: 05/30 23:28 Decision to Hospitalize by Provider. kb 23:34 Discharge ordered by . kb 05/31 00:34 Patient left the ED. 00:38 Discharged to home via wheelchair, with family. 00:38 Condition: stable 00:38 Discharge instructions given to family, Instructed on discharge instructions, follow up and referral plans. POC Demonstrated understanding of instructions, follow-up care, POC Signatures: Dispatcher [employer] EDIL Rahel Weaver, EFREN SINGLE CORNER CUTTER-Kacie GoldsmithmaniMiltonchanelle Jose Preston mw2 Claudette Vicente, RN RN jv1 Corrections: (The following items were deleted from the chart) 00:38 05/30 22:30 Respiratory: Airway is patent Respiratory effort is even, unlabored, Respiratory pattern is regular, symmetrical, Breath sounds are clear bilaterally. 05/31 00:40 05/30 22:20 BP 148 / 109; Pulse 74bpm; Resp 20bpm; Pulse Ox 100%; Temp 98.2F; Pain wh 0/10; jv1
--- NOTE | 2020-05-30 23:29 | EDPHYS ---
Physician Documentation [facility] Name: Jose Combs Age: 75 yrs Sex: Male : 1945 Arrival Date: 05/30/2020 Time: 21:51 Bed 19 Private MD: ED Physician Juan Osborn HPI: 05/30 23:11 This 75 yrs old Male presents to ER via EMS with complaints of shortness of kb breath. 23:11 The patient has shortness of breath at rest. Onset: The symptoms/episode began/occurred kb just prior to arrival. Duration: The symptoms are continuous. The patient's shortness of breath is aggravated by exertion, is alleviated by nothing. Associated signs and symptoms: The patient has no apparent associated signs or symptoms. Severity of symptoms: At their worst the symptoms were mild moderate in the emergency department the symptoms are unchanged. The patient has not experienced similar symptoms in the past. The patient has not recently seen a physician. Pt reports he was at dialysis and started having shortness of breath. Historical: - Allergies: 22:04 No Known Allergies; wh - PMHx: 22:04 Diabetes - NIDDM; ESRD; Hypertension; CHF; Bleeding Ulcers; - PSHx: 22:04 Bypass; 22:04 Prostate Surgery; - Immunization history:: Adult Immunizations up to date. - Social history:: Smoking status: Patient/guardian denies using. ROS: 23:10 Constitutional: Negative for fever, chills, and weight loss, Cardiovascular: Negative kb for chest pain, palpitations, and edema, Abdomen/GI: Negative for abdominal pain, nausea, vomiting, diarrhea, and constipation, MS/Extremity: Negative for injury and deformity, Skin: Negative for injury, rash, and discoloration, Neuro: Negative for headache, weakness, numbness, tingling, and seizure. 23:10 Respiratory: Positive for dyspnea on exertion, shortness of breath. Exam: 23:08 Constitutional: This is a well developed, well nourished patient who is awake, alert, kb and in no acute distress. Chest/axilla: Normal chest wall appearance and motion. Nontender with no deformity. No lesions are appreciated. Cardiovascular: Regular rate and rhythm with a normal S1 and S2. No gallops, murmurs, or rubs. Normal PMI, no JVD. No pulse deficits. Abdomen/GI: Soft, non-tender, with normal bowel sounds. No distension or tympany. No guarding or rebound. No evidence of tenderness throughout. Skin: Warm, dry with normal turgor. Normal color with no rashes, no lesions, and no evidence of cellulitis. MS/ Extremity: Pulses equal, no cyanosis. Neurovascular intact. Full, normal range of motion. Neuro: Awake and alert, GCS 15, oriented to person, place, time, and situation. Cranial nerves II-XII grossly intact. Motor strength 5/5 in all extremities. Sensory grossly intact. Cerebellar exam normal. Normal gait. 23:08 Respiratory: mild respiratory distress is noted, Respirations: labored breathing, that is mild, Breath sounds: are clear throughout. Vital Signs: 21:59 BP 192 / 81; Pulse 105; Resp 24; Temp 99.2; Pulse Ox 94% on R/A; Weight 62.6 kg; Height wh 5 ft. 6 in. (167.64 cm); 22:30 BP 159 / 74; Pulse 105; Resp 20; Pulse Ox 97% on R/A; wh 23:30 BP 147 / 73; Pulse 104; Resp 20; Pulse Ox 96% on R/A; wh 21:59 Body Mass Index 22.27 (62.60 kg, 167.64 cm) wh MDM: 21:53 Patient medically screened. kb 22:49 Data reviewed: vital signs, nurses notes. Data interpreted: Pulse oximetry: on room air kb is 95 %. Interpretation: normal. 23:27 Counseling: I had a detailed discussion with the patient and/or guardian regarding: the kb historical points, exam findings, and any diagnostic results supporting the discharge/admit diagnosis, lab results, radiology results, the need for further work-up and treatment in the hospital. Physician consultation: Tejinder SCHWARTZ was contacted at 23:27, regarding admission, to the telemetry unit. patient's condition, and will see patient in ED, shortly. 23:32 Refusal of service: The patient/guardian displays adequate decision making capability kb and despite a detailed discussion of alternatives, benefits, risks, and consequences refuses: Admission to the hospital for further work-up and treatment. ED course: Pt does not want to stay and daughter agrees. They have an appt with PCP tomorrow and "if she wants to admit him we will go in then." Pt has had sats of 94-98% on room air since arrival. No resp distress at this time. . 05/30 21:53 Order name: Blood Culture Adult (2) kb 05/30 21:53 Order name: BMP; Complete Time: 23:22 kb 05/30 21:53 Order name: C-Reactive Protein; Complete Time: 23:22 kb 05/30 21:53 Order name: CBC with Diff; Complete Time: 23:15 kb 05/30 21:53 Order name: Ferritin; Complete Time: 23:22 kb 05/30 21:53 Order name: Lactate; Complete Time: 23:20 kb 05/30 21:53 Order name: LFT's; Complete Time: 23:22 kb 05/30 21:53 Order name: Lipase; Complete Time: 23:22 kb 05/30 21:53 Order name: Procalcitonin; Complete Time: 23:59 kb 05/30 21:53 Order name: PT-INR; Complete Time: 23:15 kb 05/30 21:53 Order name: Ptt, Activated; Complete Time: 23:15 kb 05/30 21:53 Order name: Troponin (emerg Dept Use Only); Complete Time: 23:22 kb 05/30 21:53 Order name: CXR XRAY kb 05/30 21:53 Order name: EKG; Complete Time: 21:55 kb 05/30 21:53 Order name: Cardiac monitoring; Complete Time: 22:51 kb 05/30 21:53 Order name: Document PUI#; Complete Time: 22:51 kb 05/30 21:53 Order name: Droplet/Contact Precautions; Complete Time: 22:51 kb 05/30 21:53 Order name: EKG - Nurse/Tech; Complete Time: 22:51 kb 05/30 21:53 Order name: IV Start; Complete Time: 22:51 kb 05/30 21:53 Order name: Labs collected and sent; Complete Time: 22:51 kb 05/30 21:53 Order name: O2 Per Protocol; Complete Time: 22:51 kb 05/30 21:53 Order name: O2 Sat Monitoring; Complete Time: 22:51 kb Administered Medications: 05/31 00:15 Drug: Decadron - Dexamethasone 10 mg Route: IVP; Site: right antecubital; wh 00:41 Follow up: Response: No adverse reaction Disposition: 05/30/20 23:34 Discharged to Home. Impression: Coronavirus infection, unspecified, Dyspnea. - Condition is Stable. - Discharge Instructions: Shortness of Breath, [id number], Viral Respiratory Infection, [id number], COVID-19. - Medication Reconciliation Form, Thank You Letter, Antibiotic Education, Prescription Opioid Use form. - Follow up: Emergency Department; When: As needed; Reason: Worsening of condition. Follow up: Private Physician; When: Tomorrow; Reason: Recheck today's complaints, Continuance of care, Re-evaluation by your physician. Addendum: 06/03/2020 19:04 Co-signature as Attending Physician, Juan Osborn MD. cecilio gilman Signatures: Dispatcher [employer] [facility] Rahel Weaver, CAREER REPRESENTATIVE-C CAREER REPRESENTATIVE-Ckb Juan Osborn MD MD pkl [place], Winsy Corrections: (The following items were deleted from the chart) 05/30 23:28 23:28 Hospitalization Ordered by Matteo Flor MD for Observation. Preliminary kb diagnosis is Dyspnea - hypoxia; Coronavirus infection, unspecified. Bed requested for Telemetry/MedSurg (observation). Status is Observation. Condition is Stable. Problem is new. Symptoms are resolved. kb 23:32 23:28 05/30/2020 23:28 Hospitalization Ordered by Matteo Flor MD for Observation. kb Preliminary diagnosis is Dyspnea - hypoxia; Coronavirus infection, unspecified. Bed requested for Telemetry/MedSurg (observation). Status is Observation. Condition is Stable. Problem is new. Symptoms are unchanged. kb 23:42 21:57 CORONAVIRUS+MR.LAB.BRZ ordered. [facility] 05/31 00:34 05/30 23:34 05/30/2020 23:34 Discharged to Home. Impression: Coronavirus infection, wh unspecified; Dyspnea. Condition is Stable. Forms are Medication Reconciliation Form, Thank You Letter, Antibiotic Education, Prescription Opioid Use. Follow up: Emergency Department; When: As needed; Reason: Worsening of condition. Follow up: Private Physician; When: Tomorrow; Reason: Recheck today's complaints, Continuance of care, Re-evaluation by your physician. kb
[2020-05-31] MEDS ORDERED: dexAMETHasone 10 MG/ML VIAL ONE (00:24)
[2020-05-31 01:24] VITALS: BP 148/109; TEMP 98.2; O2SAT 100
[2020-05-31] MEDS ORDERED: POTASSIUM CL SA 10 MEQ TAB PO ONE (03:27)
--- NOTE | 2020-05-31 08:38 | RAD REPORT ---
EXAM DESCRIPTION: RAD - Chest Single View - 05/30/2020 10:08 pm CLINICAL HISTORY: DYSPNEA Chest pain. COMPARISON: No comparisons FINDINGS: Portable technique limits examination quality. The lungs are underinflated but grossly clear. The heart is upper limit normal in size. Sternotomy wi res seen. IMPRESSION: No acute intrathoracic process suspected.
--- NOTE | 2020-05-31 22:33 | EKG ---
Test Date: 2020-05-30 Test Time: 22:28:59 [employer]: MEASUREMENT RESULTS: Intervals: Rate: 107 PA: 160 QRSD: 136 QT: 364 QTc: 485 George: P: 28 PA: 160 QRS: -80 T: 50 INTERPRETIVE STATEMENTS: Sinus tachycardia with premature atrial complexes with aberrant conduction Left axis deviation Right bundle branch block Moderate voltage criteria for LVH, may be normal variant Possible Lateral infarct, age undetermined Inferior infarct, age undetermined Abnormal ECG No previous ECG available for comparison Electronically Signed On 05-31-20 22:29:40 AUDOGRAPH OPERATOR by Julian Mohan
--- NOTE | 2020-05-31 22:33 | EKG ---
Test Date: 2020-05-30 Test Time: 22:30:15 [employer]: MEASUREMENT RESULTS: Intervals: Rate: 109 MN: 156 QRSD: 132 QT: 374 QTc: 503 Buckner: P: 20 MN: 156 QRS: -68 T: 51 INTERPRETIVE STATEMENTS: Sinus tachycardia with frequent premature ventricular complexes Possible Left atrial enlargement Left axis deviation Right bundle branch block Left ventricular hypertrophy Possible Lateral infarct, age undetermined Inferior infarct, age undetermined Abnormal ECG Compared to ECG 05/30/2020 22:28:59 Ventricular premature complex(es) now present Atrial premature complex(es) no longer present Aberrant conduction of supraventricular beat(s) no longer present Myocardial infarct finding still present Electronically Signed On 05-31-20 22:29:38 ARBORIST by Julian Mohan
== END 2020-05-31 00:34 | disposition home or self-care (01) ==
LOC: ER 21:25
DX: U07.1 COVID-19 (principal); R06.00 Dyspnea, unspecified; N18.6 End stage renal disease; Z99.2 Dependence on renal dialysis
CPT/HCPCS: 93005 ×2; 87040 ×2; 85025; 80048; 36415; 87205; 85610; 80076; 83605; 85730; 84484; 82728; 83690; 84145; 86140; 71045; 96374; 99284; U0003; J1100